=== PATIENT | male | born 1955 | race Caucasian/White ===

== ENCOUNTER → 2018-08-22 09:36 | Outpatient (CLI) | payer BC, SELFPAY ==
--- NOTE | 2018-08-22 11:32 | XR_ITS ---
EXAM: XR lumbar spine min 4V HISTORY: Low back pain ITS.REASON: DORSALGIA ORDERING PHYSICIAN: Kathleen King MD PATIENT AGE: 62 years COMPARISON: None FINDINGS: Normal alignment. No fracture or dislocation. No lytic or blastic change. Degenerative disc disease is present at L4-L5 and L5-S1. Mild facet arthritic changes also noted at these levels. Incidental aortic calcifications. IMPRESSION: Degenerative disc disease with facet arthritic change L4-L5 and L5-S1
--- NOTE | 2018-08-22 11:32 | XR_ITS ---
XR hip LT 2-3V w/pelvis HISTORY: ITS.REASON: ARTHRITIS OF HIP ORDERING PHYSICIAN: Kathleen King MD PATIENT AGE: 62 years COMPARISON: None FINDINGS: No fracture or dislocation is evident. No significant degenerative change. No lytic or blastic change. Unremarkable soft tissues IMPRESSION: Negative left hip
--- NOTE | 2018-08-22 11:32 | XR_ITS ---
XR hip RT 2-3V w/pelvis HISTORY: ITS.REASON: ARTHRITIS OF HIP ORDERING PHYSICIAN: Kathleen King MD PATIENT AGE: 62 years COMPARISON: None FINDINGS: No fracture or dislocation is evident. No significant degenerative change. No lytic or blastic change. Unremarkable soft tissues IMPRESSION: Negative right hip
[2018-08-22 12:20] VITALS: PULSE 87; PULSE 89
== END ==
PROVIDERS: PCP Emergency Medicine; Visit Provider Emergency Medicine
DX: Z01.818 Encounter for other preprocedural examination (principal); J45.40 Moderate persistent asthma, uncomplicated; M16.10 Unilateral primary osteoarthritis, unspecified hip; M54.9 Dorsalgia, unspecified
CPT/HCPCS: 72110; 73502; 94060; 94640

== ENCOUNTER → 2018-08-24 13:11 | Outpatient (CLI) | payer BC, SELFPAY ==
--- NOTE | 2018-08-24 13:26 | CT_ITS ---
CT chest w con HISTORY: Follow-up pulmonary nodule, abnormal chest x-ray ITS.REASON: ABNORMAL CXR ORDERING PHYSICIAN: Kathleen King MD PATIENT AGE: 62 years COMPARISON: 06/05/2016 TECHNIQUE: Axial images obtained following the administration of 75 mL of Isovue 370 . Sagittal, and coronal reformatted images are also generated and reviewed. All CT scans at the facility use one or more dose reduction, viz: automated exposure control, ma/kV adjustment per patient size (including targeted exams where dose is matched to indication, i.e. head), or iterative reconstruction technique. FINDINGS: Patient's most recent chest x-ray with another institution. Report from that exam mentions a right suprahilar opacity. No right upper lobe or right suprahilar mass is evident. No mediastinal or hilar mass. There are few scattered small mediastinal lymph nodes which are not significantly changed. No evidence of aortic aneurysm or dissection or central pulmonary embolus. Normal heart size. No evidence of pericardial effusion. There are mild atelectatic changes or fibrotic changes in the right below and lingula. A 4 mm noncalcified nodule present in the left upper lobe laterally axial image #36 unchanged. There is consolidation along the left major fissure superiorly which has developed in the interval. Upper abdominal images are unremarkable. IMPRESSION: 1. No right suprahilar mass or suspicious nodule evident. 2. Consolidation is present along the major fissure on the left consistent with an area of atelectasis or pneumonia. Follow-up chest CT suggested in 2-3 months to confirm resolution and to exclude a postobstructive process.
== END ==
PROVIDERS: PCP Emergency Medicine; Visit Provider Emergency Medicine
DX: R93.89 Abnormal findings on diagnostic imaging of other specified body structures (principal)
CPT/HCPCS: 71260; Q9967

== ENCOUNTER → 2018-11-30 16:47 | Outpatient (CLI) | payer BC, SELFPAY ==
[2018-11-30 18:54] LABS: Blood Urea Nitrogen 17 mg/dL (7-18); Creatinine,Serum 1.14 mg/dL (0.70-1.30); Estimated Glomerular Filt Rate 65 ml/min (>60); GFR (African American) 79 ML/MIN (>60)
== END ==
PROVIDERS: Visit Provider Emergency Medicine
DX: R93.89 Abnormal findings on diagnostic imaging of other specified body structures (principal)
CPT/HCPCS: 36415; 82565; 84520

== ENCOUNTER → 2018-12-06 14:53 | Outpatient (CLI) | payer BC, SELFPAY ==
--- NOTE | 2018-12-06 15:06 | CT_ITS ---
CT chest w con HISTORY: Follow-up left upper lobe consolidation/volume loss ITS.REASON: ABN CT OF CHEST ORDERING PHYSICIAN: Kathleen Mancilla MD PATIENT AGE: 63 years COMPARISON: 08/14/2018 TECHNIQUE: Axial images obtained following the administration of 75 mL of Optiray 350 . Sagittal, and coronal reformatted images are also generated and reviewed. All CT scans at the facility use one or more dose reduction, viz: automated exposure control, ma/kV adjustment per patient size (including targeted exams where dose is matched to indication, i.e. head), or iterative reconstruction technique. FINDINGS: No mediastinal or hilar mass or adenopathy. Previous outside chest x-ray report suggested a suprahilar nodule on the right is not demonstrated on these images. There is mild pleural thickening in the right mid to posterior hemithorax laterally not severely changed. There are mild atelectatic changes or fibrotic change in the lung bases. There is mild pleural thickening of the left major fissure which is somewhat improved. Upper abdominal images are unremarkable. No central obstructing lesions are evident. IMPRESSION: 1. There is been improvement in the consolidation/pleural thickening in the left major fissure region. There remains some fissural thickening in this area. 2. Otherwise no change with no acute finding
== END ==
PROVIDERS: PCP Emergency Medicine; Visit Provider Emergency Medicine
DX: R93.89 Abnormal findings on diagnostic imaging of other specified body structures (principal)
CPT/HCPCS: 71260; Q9967

== ENCOUNTER 2018-12-20 14:30 | Outpatient (RCR) | payer BC, SELFPAY | END 2018-12-20 14:35 | disposition home or self-care (01) | LOC: PT 14:30 | PROVIDERS: Visit Provider Orthopaedic Surgery | DX: Z96.651 Presence of right artificial knee joint (principal) | CPT/HCPCS: 97010; 97014; 97016; 97110; 97140; 97163; 97164; G0283 ==

== ENCOUNTER → 2019-03-15 16:12 | Outpatient (CLI) | payer BC, SELFPAY ==
[2019-03-17 11:45] LABS: PSA, Free 0.71 ng/mL
== END ==
PROVIDERS: Visit Provider Urology
DX: R97.20 Elevated prostate specific antigen [PSA] (principal)
CPT/HCPCS: 36415; 84153; 84154

== ENCOUNTER → 2019-08-21 12:11 | Outpatient (CLI) | payer BC, SELFPAY ==
[2019-08-21 15:45] LABS: Prostate Specific Ag Screen 4.8 ng/mL (0.0-4.0)
== END ==
PROVIDERS: Visit Provider Urology
DX: R97.20 Elevated prostate specific antigen [PSA] (principal)
CPT/HCPCS: 36415; G0103

== ENCOUNTER → 2020-04-27 10:59 | Outpatient (CLI) | payer BC, SELFPAY ==
--- NOTE | 2020-04-27 | MR_ITS ---
PROCEDURE: MR LUMBAR SPINE WO CON CLINICAL INDICATION: LBP WITH HX OF DDD Chronic low back pain now with right leg pain and numbness COMPARISON: DX [id number] XR lumbar spine min 4V from 08/22/2018 TECHNIQUE: Standard multiplanar multiecho sequences are performed without contrast. 3-D MIP and myelographic images are also rendered and reviewed FINDINGS: There is normal alignment. The spinal cord ends at the the T12-L1 level. T12-L1: Mild degenerative disc disease with minimal bulging disc. L1-L2: Mild disc desiccation. L2-L3: Unremarkable. L3-L4: Mild facet and ligamentum hypertrophy with mild bilateral lateral recess and mild bilateral foraminal narrowing. L4-5: Degenerative disc disease with facet and ligamentum hypertrophy with moderate bilateral foraminal narrowing. L5-S1: Degenerative disc disease with type 2 endplate changes. There is mild bulging disc with a small broad-based left paracentral disc protrusion/disc osteophyte abutting the anterior aspect of the left S1 nerve root with left lateral recess narrowing. There is facet and ligamentum hypertrophy this with mild bilateral foraminal narrowing. No canal stenosis or extruded herniated disc. IMPRESSION: There is multilevel lumbar spondylosis with facet and ligamentum hypertrophy and degenerative disc disease. Please see above for detailed description at each level. Small broad-based left paracentral disc protrusion versus disc osteophyte complex at L5-S1 abutting the left S1 nerve root anteriorly No extruded herniated disc or canal stenosis Dictated by: Zion Larson MD 04/29/2020 06:45 Zion Larson MD in [place] 04/29/2020 06:45
== END ==
PROVIDERS: PCP Family Medicine; Visit Provider Family Medicine
DX: M54.41 Lumbago with sciatica, right side (principal); M51.36 Other intervertebral disc degeneration, lumbar region; M47.816 Spondylosis without myelopathy or radiculopathy, lumbar region
CPT/HCPCS: 72148; 76376

== ENCOUNTER 2020-05-01 10:00 | Outpatient (RCR) | payer BC, SELFPAY | END 2020-05-01 10:05 | disposition home or self-care (01) | LOC: PT 10:00 | PROVIDERS: PCP Emergency Medicine; Visit Provider Orthopaedic Surgery | DX: M25.561 Pain in right knee; Z96.651 Presence of right artificial knee joint | CPT/HCPCS: 97010; 97014; 97016; 97035; 97110; 97140; 97163; 97164; G0283 ==

== ENCOUNTER → 2020-10-02 12:43 | Outpatient (CLI) | payer BC, SELFPAY ==
--- NOTE | 2020-10-02 12:43 | CT_ITS ---
PROCEDURE: CT CHEST WO CON CLINICAL INDICATION: Pleural Abnormality Soa x several years Prior on pacs COMPARISON: CT CHESTW CT chest w con from 12/06/2018 TECHNIQUE: Axial images obtained with sagittal and coronal reformats. All CT scans at the facility use one or more dose reduction, viz: automated exposure control, ma/kV adjustment per patient size (including targeted exams where dose is matched to indication, i.e. head), or iterative reconstruction technique. FINDINGS: HEART AND MEDIASTINAL STRUCTURES: Coronary artery calcifications are noted. No mediastinal or hilar mass. No evidence of aortic aneurysm. LUNGS AND PLEURAL SPACES: COPD changes. No lobar consolidation or collapse. Atelectatic or fibrotic changes are present in the lingula. Is some mild scarring within the left lower lobe medially. Previously left-sided fissural thickening has improved. BONY STRUCTURES: No acute bony abnormalities apparent. UPPER ABDOMEN: Diverticulosis of the hepatic flexure ADDITIONAL FINDINGS: No other significant abnormalities. IMPRESSION: No acute finding. COPD with some scarring in the lingula and left lower lobe. Previous noted left-sided fissural thickening has improved Dictated by: Zion Larson MD 10/03/2020 13:25 Zion Larson MD in [place] 10/03/2020 13:25
--- NOTE | 2020-10-02 13:23 | CA_ITS ---
APPROVED REPORT EXAM: Comprehensive 2D, Doppler, and color-flow Echocardiogram Chemical Analyst: Zahraa Mccray CRT Ht: 5 ft 7 in Wt: 245lbs BSA: 2.20 BP: 122/85 mmHg Indications: Shortness of Breath, Obesity, ex smoker 2D Dimensions LVOT 2.08 cm (M/F) 1.5-2.5 LA Volume 48.20 mL LA Volume Index 21.90 mL/m2 (M/F) 16-34 M-Mode Dimensions RVDd 2.78 cm (0.9-2.6) LA Diam 3.59 cm (1.9-4.0) LVDd 4.87 cm (3.5-5.7) Ao Diam 4.52 cm (2.0-3.7) LVDs 3.14 cm (3.5-5.7) IVSd 1.65 cm (0.6-1.1) PWd 0.93 cm (0.6-1.1) EF (Teich) 64.80% FS 35.50% EDV (Teich) 111.20 mL TAPSE 3.44 (<1.7) ESV (Teich) 39.10 mL LV Diastology E Decel Time 243.00 (160-240 msec) E/A Ratio 0.78 MED E' 4.60 (< 7 cm/sec) MED A' 10.40 cm/s E'/MED E' Ratio 13.70 (>14) LAT E' 7.80 (<10 cm/sec) LAT A' 12.40 cm/s E/LAT E' Ratio 8.08 (>14) Aortic Valve AO Peak GR. 6.80 mmHg Mitral Valve MV A Velocity 81.00 (40-130 cm/s) E/A Ratio 0.78 MV Decel. Time 243.00 (160-240 ms) Pulmonary Valve PV Peak Velocity 77.00 (50-150 cm/s) Tricuspid Valve TR P. Velocity 128.00 cm/s RAP Estimate 10.00 mmHg RVSP 16.50 mmHg Left Ventricle Left atrium is mildly enlarged, left ventricle is normal size, mild concentric left ventricular hypertrophy, visually estimated ejection fraction 55% with no regional wall motion abnormality, grade 1 diastolic dysfunction seen without tissue Doppler evidence of raise left atrial pressure. Right Ventricle Right atrium and right ventricle is relatively normal size and function. Aortic Valve Aortic valve is minimally thickened and fibrosed, there is no aortic stenosis or aortic insufficiency. Mitral Valve Mitral valve is benign leaflets are minimally thickened, there is no mitral stenosis, there is mild mitral regurgitation. Tricuspid Valve Tricuspid grossly normal, there is mild tricuspid regurgitation, tricuspid regurgitation jet velocity is inadequate for calculation of the right ventricular systolic pressure. Pulmonic Valve Pulmonic valve is poorly visualized. Great Vessels Aortic root is normal size. Pericardium No significant pericardial effusion noted. Conclusion 1. Mildly enlarged left atrium, normal left ventricular size, mild concentric left ventricular hypertrophy, visually estimated ejection fraction 55% with no regional wall motion abnormality, grade 1 diastolic dysfunction seen without tissue Doppler evidence of raise left atrial pressure. 2. Mild mitral and tricuspid regurgitation 3. No significant pericardial effusion noted. Electronically signed by : Ralph Brooks, 10/03/2020 16:00:18
== END ==
PROVIDERS: PCP Family Medicine; Visit Provider Internal Medicine Pulmonary Disease
DX: R06.00 Dyspnea, unspecified (principal); R93.89 Abnormal findings on diagnostic imaging of other specified body structures; J92.9 Pleural plaque without asbestos
CPT/HCPCS: 71250; 93306

== ENCOUNTER → 2021-05-26 14:06 | Outpatient (CLI) | payer BC, SELFPAY ==
[2021-05-26 16:16] LABS: Prostate Specific Ag Screen 6.6 ng/ml (0.0-4.0)
== END ==
PROVIDERS: Visit Provider Urology
DX: R97.20 Elevated prostate specific antigen [PSA] (principal)
CPT/HCPCS: 36415; G0103

== ENCOUNTER → 2021-07-25 14:01 | Outpatient (CLI) | payer BC, SELFPAY ==
[2021-07-27 09:09] LABS: PSA, Free 1.76 ng/mL; Prostate Specific Ag 5.4 ng/mL (0.0-4.0)
== END ==
PROVIDERS: PCP Internal Medicine; Visit Provider Urology
DX: R97.20 Elevated prostate specific antigen [PSA] (principal)
CPT/HCPCS: 36415; 84153; 84154

== ENCOUNTER → 2021-12-23 15:20 | Outpatient (CLI) | payer MEDICARE, SELFPAY ==
--- NOTE | 2021-12-23 15:30 | XR_ITS ---
FINAL REPORT CLINICAL HISTORY: LT FOOT PAIN. swelling. no injury or trauma. FINDINGS: LEFT FOOT: Three views of the left foot were obtained. There is no acute fracture or dislocation. There are mild degenerative changes. There is no soft tissue abnormality. IMPRESSION: Mild degenerative change. Reviewed, Interpreted and Dictated by Messi Williamson III, MD Transcribed by Juancarlos Elmore Authenticated and [facility]
== END ==
PROVIDERS: PCP Family Medicine; Visit Provider Family Medicine
DX: M79.672 Pain in left foot (principal)
CPT/HCPCS: 73630

== ENCOUNTER → 2022-02-03 14:51 | Outpatient (CLI) | payer MEDICARE, SELFPAY ==
[2022-02-03 16:33] LABS: Prostate Specific Ag Screen 8.2 ng/ml (0.0-4.0)
== END ==
PROVIDERS: PCP Family Medicine; Visit Provider Urology
DX: Z12.5 Encounter for screening for malignant neoplasm of prostate (principal)
CPT/HCPCS: 36415; G0103

== ENCOUNTER → 2022-02-24 13:47 | Outpatient (CLI) | payer MEDICARE, SELFPAY ==
[2022-02-26 09:47] LABS: PSA, Free 1.46 ng/mL; Prostate Specific Ag 5.3 ng/mL (0.0-4.0)
== END ==
PROVIDERS: PCP Urology; Visit Provider Family Medicine
DX: R97.20 Elevated prostate specific antigen [PSA] (principal)
CPT/HCPCS: 36415; 84153; 84154

== ENCOUNTER → 2022-08-04 15:23 | Outpatient (CLI) | payer MEDICARE, SELFPAY ==
--- NOTE | 2022-08-04 15:40 | XR_ITS ---
FINAL REPORT CLINICAL HISTORY: PAIN RT HAND FINDINGS: Right hand Three views were obtained. There is no acute fracture or dislocation. There are mild degenerative changes, most pronounced involving the DIP and PIP joints. No soft tissue abnormality is identified. IMPRESSION: No acute process. Reviewed, Interpreted and Dictated by Lisbeth Eid MD Transcribed by Jammie Chase Authenticated and [facility]
== END ==
PROVIDERS: PCP Family Medicine; Visit Provider Family Medicine
DX: M79.641 Pain in right hand (principal)
CPT/HCPCS: 73130

== ENCOUNTER 2023-07-29 11:44 | Day surgery (SDC) | payer MEDICARE, SELFPAY ==
[2023-07-29] VITALS (8 sets, daily range): BP systolic 127–153; BP diastolic 72–96; PULSE 90–96; RESP 16–18; TEMP 36.4–36.6; O2SAT 90–100; BMI 38.3
[2023-07-29] MEDS: LACTATED RINGERS 1000ML 1,000 ML 25 ML IV (12:06)
--- NOTE | 2023-07-29 12:27 | EXP.ANES.CKL ---
[facility] Disclaimer: The information contained in this section may have been updated after the patient was seen, as this information can be updated by other users. Medical History Asthma COPD (chronic obstructive pulmonary disease) Elevated PSA History of back pain Surgical History History of colonoscopy History of knee replacement Family History Other No significant family history Social History Smoking Status: Former smoker tobacco type: smokeless tobacco alcohol intake: current substance use type: denies use current occupational status: employed Travel in the last 8 weeks: None housing: house [facility] Anesthesia Checklist Patient Identification Patient Identification: Arm Band, Family () and Verbal (Name & ) Structural Data Admitted From: Home Planned Operative Procedure/s: Colonoscopy Consent for Planned Operative Procedure(s) Verified: Yes Verified Documents: Surgical Consent and History and Physical NPO Status Verified Time NPO: 01:00 Chart Verification Results Verified: CBC, BMP and ECG (ECHO EF 55% Mild MR & TR) Additional verifications Patient : No Anesthesia Reactions: Yes (Double vision x 6 months after last colonoscopy? Resolved) Cardiovascular Assessment Heart Sounds: S1 & S2 Pulse Rhythm: Irregular Peripheral Edema: No Airway Assessment Mallampati Score:: Class II C-Spine Mobility Assessed: Yes (FROM) TMJ Mobility Assessed: Yes Dentition: Good Dentition (Nothing loose per pt.) Neurological Assessment Level of Consciousness: Awake, Alert, Appropriate and Follows Commands Hx Seizures: No Numbness or tingling in extremities: No Anesthesia Plan Anesthesia Risk discussed: Yes Anesthesia Plan: Verified ASA Class: III Anesthesia Type: MAC
--- NOTE | 2023-07-29 13:06 | HMH.SCOPE ---
Procedure: Date: 07/29/23 Patient Date of :: 1955 Procedure Performed:: Colonoscopy with snare Indications:: +Cologuard Performing Provider:: Mariah Monroe MD Referring Provider:: Parrish Thurman MD Sedation:: Propofol Procedure:: After placing the patient in the left lateral decubitus position, the colonoscopy was gently inserted into the rectum and under direct visualization advanced to the cecum which was identified by transillumination in the right lower quadrant, identification of the ileocecal valve, appendiceal orifice, and cecal strap. Color, texture, mucosa, and anatomy of the colon were carefully examined with the scope. Findings:: Anal canal: normal Rectum: normal Sigmoid colon: normal without polyps or inflammatory changes Descending colon: normal without polyps or inflammatory changes Splenic flexure: normal Transverse colon: 0.75 cm adenomatous polyps, removed with hot snare Hepatic flexure: normal Ascending colon: Large 1.5 adenomatous polyp, removed with hot snare Cecum: normal Terminal ileum: not visualized Impression: Multiple adenomatous polyps Specimens:: Colon polyps Recommendations:: Follow up examination in about THREE years or so, sooner if clinically indicated in view of current findings Complications:: None Estimated blood obtained (mL): 0 Colonoscopy Component Colonoscopy Component Was a colonoscopy performed during today's procedure?: Yes Recommended follow up colonoscopy of at least 10 years?: No If no, follow up colonoscopy recommended in ___ years?: THREE Reason for not recommending >/= 10 yr follow-up interval?: Polyps, multiple
--- NOTE | 2023-07-29 13:17 | EXP.ANES.I ---
[facility] Anesthesia Record Part I Anesthesia Record I Intake, IV Amount: 400 Hydration: Adequate Estimated blood loss (mL): 1 Urine output (mL): 0 Blood Products used (#): none Blood Pressure: 132/80 SaO2: 90 Pulse Rate: 90 Airway Patency: Patent Respiratory Rate: 16 Temperature: 97.8 F Patient is:: Drowsy and Stable Stable to PACU at:: 13:14
== END 2023-07-29 14:05 | disposition home or self-care (01) ==
PROVIDERS: PCP Family Medicine; Visit Provider Internal Medicine Gastroenterology
PROC: 0DJD8ZZ Inspection of Lower Intestinal Tract, Via Natural or Artificial Opening Endoscopic (ICD-10-PCS; CPT 45378; principal; 2023-07-29 13:00)
DX: R19.5 Other fecal abnormalities (principal); D12.2 Benign neoplasm of ascending colon; D12.3 Benign neoplasm of transverse colon
CPT/HCPCS: 45385; 88305

== ENCOUNTER 2023-11-08 10:02 | Outpatient (CLI) | payer MEDICARE, SELFPAY | END 2023-11-08 23:59 | disposition home or self-care (01) | LOC: LAB 10:04 | PROVIDERS: PCP Family Medicine; Visit Provider Urology | DX: R97.20 Elevated prostate specific antigen [PSA] (principal) | CPT/HCPCS: 36415; 84153; 84154 ==

== ENCOUNTER 2023-11-09 14:48 | Outpatient (CLI) | payer MEDICARE, SELFPAY ==
[2023-11-11 09:16] LABS: Prostate Specific Ag 5.2 ng/mL (0.0-4.0)
== END 2023-11-09 23:59 | disposition home or self-care (01) ==
LOC: LAB 14:48
PROVIDERS: PCP Family Medicine; Visit Provider Urology
DX: R97.20 Elevated prostate specific antigen [PSA] (principal)
CPT/HCPCS: 84153; 84154

== ENCOUNTER 2024-04-20 14:11 | Outpatient (CLI) | payer MEDICARE, SELFPAY ==
[2024-04-22 10:23] LABS: PSA, Free 1.17 ng/mL; Prostate Specific Ag 6.2 ng/mL (0.0-4.0)
== END 2024-04-20 23:59 | disposition home or self-care (01) ==
LOC: LAB 14:15
PROVIDERS: PCP Family Medicine; Visit Provider Urology
DX: N40.1 Benign prostatic hyperplasia with lower urinary tract symptoms (principal)
CPT/HCPCS: 36415; 84153; 84154

== ENCOUNTER 2024-06-13 12:31 | Outpatient (CLI) | payer MEDICARE, SELFPAY ==
--- NOTE | 2024-06-13 12:42 | XR_ITS ---
FINAL REPORT CLINICAL HISTORY: MUSCLE SPASM FINDINGS: THORACIC SPINE Three views were obtained. There is no acute fracture. There are mild degenerative changes with osteophytes. There is no malalignment. IMPRESSION: Mild degenerative changes. Reviewed, Interpreted and Dictated by Messi Williamson III, MD Transcribed by Jammie Chase Authenticated and [facility]
--- NOTE | 2024-06-13 12:42 | XR_ITS ---
FINAL REPORT CLINICAL HISTORY: .MUSCLE SPASMS FINDINGS: LUMBAR SPINE Five views were obtained. There is no acute fracture. There are mild and moderate degenerative changes. Vacuum phenomenon is seen at L4-5 and L5-S1. There is mild anterolisthesis of L3 on 4. Vascular calcification is identified. IMPRESSION: Degenerative changes as detailed above. Reviewed, Interpreted and Dictated by Messi Williamson III, MD Transcribed by Jammie Chase Authenticated and [facility]
== END 2024-06-13 23:59 | disposition home or self-care (01) ==
LOC: RAD 12:37
PROVIDERS: PCP Family Medicine; Visit Provider Nurse Practitioner Family
DX: M62.830 Muscle spasm of back (principal)
CPT/HCPCS: 72072; 72110

== ENCOUNTER 2024-07-08 04:25 | Emergency (ER) | payer MEDICARE, SELFPAY ==
[2024-07-08 04:32] VITALS: BP 144/76; PULSE 96; RESP 20; TEMP 36.8; O2SAT 94; BMI 38.0
[2024-07-08] MEDS: METHOCARBAMOL 500MG TABLET 500 MG PO (04:52)
[2024-07-08] MEDS: LIDOCAINE 5% TRANSDERMAL PATCH 1 EACH TP (04:52)
--- NOTE | 2024-07-08 04:52 | ED_ITS ---
Discharge Plan Disposition Patient Disposition: Home, Self-Care Condition: Good Prescriptions Prescriptions: New lidocaine 5 % adhesive patch,medicated See Rx Instructions .ROUTE .COMPLEX Qty: 15 0RF Rx Instructions: Apply 1 patch to most painful area and leave on for 12 hours. Remove and leave off for 12 hours before using a new patch. methocarbamol 500 mg tablet 500 mg PO Q6H PRN (Reason: muscle spasm) Qty: 30 0RF No Action Trelegy Ellipta 100-62.5-25 mcg blister with device 1 inh INHALATION DAILY Qty: 60 4RF albuterol sulfate 90 mcg/actuation HFA aerosol inhaler 1 inh INHALATION QID PRN (Reason: shortness of breath or wheezing) Qty: 8.5 2RF omeprazole 40 MG capsule,delayed release(DR/EC) 40 mg PO DAILY triamterene-hydrochlorothiazid 37.5-25 mg tablet 1 tab PO DAILY Patient Comments: TAKE 1 2 (ONE HALF) TABLET BY MOUTH ONCE DAILY FOR 90 DAYS Referrals Follow up/Referrals: Rolan Gonzales DO [Staff Physician] - See instructions (fall 2mo ago, still having thoracic/paraspinal pain no neuro deficits) Provider,Referral, [Primary Care Provider] - See instructions Activity Restrictions/Add. Instructions Additional Instructions/Restrictions: You were evaluated in the ER and are appropriate for discharge at this time. Stop the metaxalone. Start taking the prescribed methocarbamol as directed. Also use the prescribed lidocaine patches. Continue taking Tylenol, ibuprofen. Do not exceed the recommended doses on the bottle. Drink water and eat a small snack each time you take these medications to avoid side effects. Follow-up with your primary care doctor. Call him and ask him if he is able to get the MRI expedited. You have also been referred to Dr. Gonzales for reevaluation. Return to the ER with new, worsening, or otherwise concerning symptoms. Clinical Impressions Clinical Impression: Pain of paraspinal muscle, Back pain, thoracic Instructions Patient Instructions: DI for Low Back Pain Print Language Print Language: Sinhala Discharge ED Provider: Elin Vásquez Adult HPI General Chief complaint: Back Pain/Injury Stated complaint: back pain Time Seen by Provider: 07/08/24 04:31 Mode of Arrival: Ambulatory Source of Information: Patient Limitations: No Limitations Description of Symptoms (Recalled from ER Triage Doc. by RN): Pt states he fell 2 months ago and since has had mid back pain. Pain a 4 on 1-10 scale. Pt states he has numbness in right rib cage also. History of Present Illness HPI narrative: 68-year-old male presents to the ER with complaints of mid back pain. Patient reports 2 months ago he had a fall. He states since that time he has had progressive back pain. The area he demonstrates is around T8. He points to the right side stating the majority of his pain starts in his this right paraspinal area. He states the pain does radiate over to the left side as well. He states he has a known history of bone spurs and is not sure if this is potentially causing nerve impingement. He states the pain in the right side wraps around the right side of the rib. He does not describe numbness to me but describes pain. He states it is tender to the touch. He has no difficulty breathing, no shortness of breath, no chest pain, no nausea, vomiting, or diarrhea. He denies abdominal pain, he has no dysuria or hematuria, he has no saddle anesthesia, no bowel or bladder incontinence or retention. He states he has been taking Tylenol, ibuprofen, and metaxalone that was prescribed by his primary care doctor. He states he has been going to physical therapy but seems to be getting worse with this. He has been told by his PCP he should have an MRI but states he has not scheduled for this for up to 2 weeks. He has not had fevers, chills, or other associated symptoms. He came to the ER hoping to get pain pills. Related Data Home Medications ?Medication ?Instructions ?Recorded ?Confirmed omeprazole 40 mg capsule,delayed 40 mg PO DAILY GERD 09/08/18 07/29/23 release triamterene 37.5 1 tab PO DAILY 07/29/23 07/29/23 mg-hydrochlorothiazide 25 mg tablet Previous Rx's ?Medication ?Instructions ?Recorded albuterol sulfate 90 mcg/actuation 1 inh inhalation QID PRN shortness 08/14/20 aerosol inhaler of breath or wheezing #8.5 grams fluticasone fur. 100 mcg-umeclid 1 inh inhalation DAILY #60 ea 08/14/20 62.5 mcg-vilant 25 mcg inhalat.powder (Trelegy Ellipta) lidocaine 5 % topical patch See Rx Instructions topical 07/08/24 .COMPLEX #15 ea methocarbamol 500 mg tablet 500 mg PO Q6H PRN muscle spasm #30 07/08/24 tabs Allergies Allergy/AdvReac Type Severity Reaction Status Date / Time No Known Allergies Allergy Verified 07/29/23 11:58 [facility] Disclaimer: The information contained in this section may have been updated after the patient was seen, as this information can be updated by other users. Medical History (Updated 07/08/24 @ 04:50 by Elin Vásquez MD) Elevated PSA History of back pain Asthma COPD (chronic obstructive pulmonary disease) Surgical History History of colonoscopy History of knee replacement Family History Other No significant family history Social History (Updated 07/29/23 @ 12:29 by Gunjan Burleson CRNA) Smoking Status: Never smoker alcohol intake: current alcohol intake frequency: a few times a month substance use type: denies use current occupational status: employed Travel in the last 8 weeks: None housing: house Have you lived/traveled outside [place] in past 30 days?: No Contact w/someone who lives/traveled outside [place] past 30 days?: No Exposure to someone with infectious disease in past 14 days?: No Do you have a fever (greater than 100.4 F or 38 C)?: No Have you tested positive for COVID-19: No Exposed to someone with COVID-19 in past 14 days?: No Do you have a sore throat?: No Do you have a cough?: No Do you have any weakness?: No Do you have any diarrhea?: No Are you experiencing any unusual bleeding?: No Do you have any muscle aches/pain?: No Do you have any abdominal pain?: No Are you experiencing loss of taste or smell?: No Other Medical History Have you received the Pneumonia Vaccine: Yes ROS Obtained: Yes Systems reviewed as appropriate & no additional complaints except as documented per HPI Physical Exam General General appearance: alert and in no apparent distress Head Head exam: atraumatic and normocephalic Eye Eye exam: Present PERRL and EOMI ENT ENT exam: Present mucous membranes moist Neck Neck exam: Present normal inspection and full ROM Chest Chest inspection: Present symmetric chest wall rise; Absent tenderness Respiratory Respiratory exam: Absent respiratory distress or stridor Cardiovascular Cardiovascular exam: Present regular rate and normal rhythm Abdominal Exam Abdominal exam: Present soft; Absent distention, tenderness, guarding or rebound Extremities Exam Extremities exam: Present full ROM; Absent tenderness or edema Back Exam Back exam: Present paraspinal tenderness (Paraspinal tenderness worse on the right than the left but also present on the left at approximately the T6-T10 level. Pain in the right paraspinal muscles also radiates into the right inferior latissimus.); Absent vertebral tenderness (No midline vertebral tenderness, deformity, or step-off), sciatic notch tenderness (R) or sciatic notch tenderness (L) Neurological Exam Neurological exam: Present alert, oriented X3 and other (No saddle anesthesia); Absent motor sensory deficit Psychiatric Psychiatric exam: Present normal affect and normal mood Skin Skin exam: Present warm and dry Medical Decision Making Medical Records Medical records reviewed: Yes I reviewed the patient's medical records. Screening: Per USPSTF and CDC recommendations, given the prevalence of disease in our region, it is our hospital?s policy to screen for HIV and viral Hepatitis for all patients aged 18 and over and those with ongoing risk factors. MR Comment: Patient had thoracic and lumbar spine x-ray imaging at the beginning of June. I reviewed these x-rays. Patient has degenerative changes but they did not appreciate acute osseous injury López Inquiry Pt receiving controlled substance: No Vital Signs: 07/08/24 04:32 Temperature 98.2 F Temperature Source Oral Pulse Rate [Right Brachial] 96 H Respiratory Rate 20 Blood Pressure [Right Arm] 144/76 H Blood Pressure Mean [Right Arm] 98 Blood Pressure Source [Right Arm] Automatic Cuff Blood Pressure Position [Right Arm] Sitting 02 Sat by Pulse Oximetry 94 L Oxygen Delivery Method Room Air Orders (Tests/Meds): ED MEDICATIONS Discontinued Medications Generic Name Dose Route Start Last Admin Trade Name Freq PRN Reason Stop Dose Admin Lidocaine 1 each 07/08/24 04:49 07/08/24 04:52 Lidocaine 5% Transdermal Patch TP 07/08/24 04:50 1 each ONCE ONE Administration Methocarbamol 500 mg 07/08/24 04:49 07/08/24 04:52 Methocarbamol 500mg Tablet PO 07/08/24 04:50 500 mg ONCE ONE Administration ORDERS Category Date Time Status HIV (1&2) Antibody Rapid Stat Lab 07/08/24 04:35 Ordered Hep C Ab with Reflex to RNA Stat Lab 07/08/24 04:35 Ordered Medical Decision Narrative: In summary, this 68-year-old male presents to the emergency department today with thoracic back pain. On initial evaluation patient is hemodynamically stable, afebrile, GCS 15, patient has no neurologic deficits, no red flag signs of back pain, his exam only shows paraspinal tenderness, no midline pain, deformity, or step-off. Differential diagnosis includes but is not limited to muscle spasm, radiculopathy, nerve impingement, degenerative disease, I had considered the possibility of compression fracture or other acute osseous injury however patient's initial injury occurred over 2 months ago and he gradually started having pain after that. This course of symptoms does not fit with an acute osseous injury and patient had negative T and L-spine x-rays at the beginning of June which is further support against osseous injury. Patient likely needs an MRI but he does not need one emergently since he has no red flag symptoms such as bowel or bladder incontinence or retention, paralysis, or sad dle anesthesia. He has no high risk behaviors such as IV drug use that would increase his risk of epidural abscess and is not having any fevers, chills, or neurodeficits. I do not believe he requires emergent MRI at this time. Outpatient MRI that has been recommended and referred for by his PCP is appropriate. I did administer methocarbamol and lidocaine patch in the ER. Patient is already taking other medications at home. He had slight improvement of symptoms and is now able to sit comfortably on the side of the bed. He understands why additional imaging is not indicated at this time. I did prescribe methocarbamol and instructed him to stop the metaxalone. I also prescribed lidocaine patches for outpatient use. Patient was given instructions on symptomatic management, follow up instructions, and return precautions for the emergency department. Patient indicated understanding and was discharged in stable condition. Critical Care Critical Care Time Critical Care Time: No
[2024-07-08 05:48] VITALS: BP 160/72; PULSE 93; RESP 16; TEMP 36.7; O2SAT 96
== END 2024-07-08 05:51 | disposition home or self-care (01) ==
PROVIDERS: Emergency Provider Emergency Medicine
DX: M54.6 Pain in thoracic spine (principal); M79.18 Myalgia, other site; M54.9 Dorsalgia, unspecified
CPT/HCPCS: 99283

== ENCOUNTER 2024-07-10 16:53 | Outpatient (CLI) | payer MEDICARE, SELFPAY ==
--- NOTE | 2024-07-10 16:56 | MR_ITS ---
PROCEDURE INFORMATION: Exam: MR Thoracic Spine Without Contrast Exam date and time: 07/10/2024 5:16 PM Age: 68 years old Clinical indication: Pain in thoracic spine; Patient HX: Fall x 2 months ago; Additional info: Bilateral thoracic back pain, ddd TECHNIQUE: Imaging protocol: Magnetic resonance imaging of the thoracic spine without contrast. COMPARISON: CR XR THORACIC SPINE 3V 06/13/2024 12:57 PM FINDINGS: Bones/joints: There is a new acute to subacute appearing severe T7 compression deformity with bony retropulsion into the spinal canal and effacement of the anterior thecal sac. The remainder of the vertebral body heights and alignment are maintained. There is [id number] multilevel degenerative disc disease. Spinal cord: Normal signal. No cord compression. T1-T2: There is a small left-sided disc protrusion which partially effaces the anterior thecal sac. There is no significant spinal canal or neural foraminal stenosis. T2-T3: There is mild diffuse disc bulging without significant spinal canal or neural foraminal stenosis. T3-T4: No significant disc bulge or herniation. No severe spinal canal stenosis. No significant neural foraminal narrowing. T4-T5: No significant disc bulge or herniation. No severe spinal canal stenosis. No significant neural foraminal narrowing. T5-T6: No significant disc bulge or herniation. No severe spinal canal stenosis. No significant neural foraminal narrowing. T6-T7: There is a small central disc protrusion which partially effaces the anterior thecal sac. There is no significant spinal canal or neural foraminal stenosis. T7-T8: There is [id number] spinal canal stenosis secondary to bony retropulsion from T7 and prominent epidural fat. There is oagl-ge-uxohesuo bilateral neural foraminal stenosis secondary to foraminal disc osteophyte bulging. T8-T9: There is a small central disc protrusion which partially effaces the anterior thecal sac. There is no significant spinal canal or neural foraminal stenosis. T9-T10: There is a small right paracentral disc osteophyte complex which partially effaces the anterior thecal sac. There is no significant spinal canal or neural foraminal stenosis. T10-T11: No significant disc bulge or herniation. No severe spinal canal stenosis. No significant neural foraminal narrowing. T11-T12: No significant disc bulge or herniation. No severe spinal canal stenosis. No significant neural foraminal narrowing. T12-L1: There is a small broad-based central disc protrusion which partially effaces the anterior thecal sac. There is no significant spinal canal or neural foraminal stenosis. Soft tissues: Unremarkable. IMPRESSION: 1. Severe acute to subacute T7 compression deformity which is new when compared with the 06/13/2024 exam. 2. Degenerative changes as described. Please see above for specific findings at each level.
== END 2024-07-10 23:59 | disposition home or self-care (01) ==
LOC: RAD 16:54
PROVIDERS: PCP Family Medicine; Visit Provider Family Medicine
DX: M51.34 Other intervertebral disc degeneration, thoracic region (principal)
CPT/HCPCS: 72146

== ENCOUNTER 2024-07-11 13:00 | Outpatient (RCR) | payer MEDICARE, SELFPAY | END 2024-07-11 23:59 | disposition home or self-care (01) | LOC: PT 13:00 | PROVIDERS: PCP Family Medicine; Visit Provider Nurse Practitioner Family | DX: M54.9 Dorsalgia, unspecified (principal) | CPT/HCPCS: 97014; 97035; 97110; 97140; 97163; G0283 ==

== ENCOUNTER 2024-07-19 15:09 | Outpatient (POV) | payer MEDICARE, SELFPAY ==
--- NOTE | 2024-07-19 15:13 | A.OFFVIS_ITS ---
HPI Data of Consult Patient: new to practice Consult date: 07/19/24 Requesting Physician: Victorina Gonzales APRN Primary Care Provider: Parrish Thurman MD Consult Narrative Reason for consult: Mid back pain, acute compression fracture T7 History of present illness: Mr. Brown is a 68 year old male who presents today as a new patient. He is a referral from Dr. Parrish Thurman's office. Today he rates his pain a 10 out of 10. Patient states that initially about 9 weeks ago he was bending over when he heard a sudden popping sound with severe pain in his upper mid back. He states that he ended up also having a fall about 2 weeks from that where he fell over a horse bucket. He states the pain has been constant and describes it as a stabbing sensation that does take away his breath. He states any type of increased activity such as walking or sitting on a hard chair causes significant disability and pain. He states he cannot lift due to the worsening pain. He states the pain was across his low back and that he was having radiating symptoms into his ribs bilaterally however now the right side is more numb but the pain is still severe along the left side and radiates across. Patient states that initially his insurance denied the advanced imaging and stated he needed to go to physical therapy. He states he has been using oral medication including pain medication and muscle relaxers and multiple topicals included patches and roll-on medication that just seem to aggravate his overall symptoms. Patient did try to go to his chiropractor who he is seen for a long period of time prior to this injury for chronic back pain however the chiropractor refused to work on him. Patient states that he ended at doing the physical therapy however it did not help his pain but made his pain worse and he was released from this office. He states he did just get his MRI done at the end of June. Patient states he feels like the pain is still acute and that he can feel his back moving around and still has popping sensations from time to time. He is interested in any help we may be able to provide as it is interfering with his ability perform activities of daily living such as cooking and cleaning. He has been prescribed tramadol and methocarbamol from his PCP. He denies any side effects from this medication. His López has been reviewed and is appropriate. CC: Victorina Gonzales APRN [facility] Disclaimer: The information contained in this section may have been updated after the patient was seen, as this information can be updated by other users. Medical History (Updated 07/19/24 @ 15:14 by Victorina Gonzales APRN) Elevated PSA History of back pain Asthma COPD (chronic obstructive pulmonary disease) Surgical History History of colonoscopy History of knee replacement Family History Other No significant family history Social History (Updated 07/29/23 @ 12:29 by Gunjan Burleson CRNA) Smoking Status: Never smoker alcohol intake: current alcohol intake frequency: a few times a month substance use type: denies use current occupational status: retired Travel in the last 8 weeks: None housing: house Review of Systems Review of Systems Review of systems (narrative): Review of Systems: General: No recent weight changes, no fever, no sleep disturbances Respiratory: No cough, no shortness of air, no recurring pulmonary infections Cardiovascular/peripheral vascular: No chest pain, no palpitations, no edema, no shortness of breath Gastrointestinal: No new onset incontinence, normal bowel movements reported Genitourinary: No new onset incontinence Musculoskeletal: Upper mid back pain, rib pain Psychiatric: [Normal mood/affect] Neurological: [Denies weakness in extremities], [denies balance issues] Meds Home Medications and Allergies Home Medications ?Medication ?Instructions ?Recorded ?Confirmed ?Type omeprazole 40 mg capsule,delayed 40 mg PO DAILY GERD 09/08/18 07/29/23 History release albuterol sulfate 90 mcg/actuation 1 inh inhalation QID PRN shortness 08/14/20 07/29/23 Rx aerosol inhaler of breath or wheezing #8.5 grams fluticasone fur. 100 mcg-umeclid 1 inh inhalation DAILY #60 ea 08/14/20 07/29/23 Rx 62.5 mcg-vilant 25 mcg inhalat.powder (Trelegy Ellipta) triamterene 37.5 1 tab PO DAILY 07/29/23 07/29/23 History mg-hydrochlorothiazide 25 mg tablet lidocaine 5 % topical patch See Rx Instructions topical 07/08/24 Rx .COMPLEX #15 ea methocarbamol 500 mg tablet 500 mg PO Q6H PRN muscle spasm #30 07/08/24 Rx tabs New Prescriptions to Start Prescriptions: Allergies Allergy/AdvReac Type Severity Reaction Status Date / Time No Known Allergies Allergy Verified 07/29/23 11:58 Objective Narrative: Physical Exam: General: Alert and oriented x3, no acute distress, pleasant and cooperative Lungs: Respirations even and unlabored, symmetrical chest expansion Eyes: PERRL Musculoskeletal: Flexion and extension of thoracic [spine] somewhat guarded secondary to pain, [antalgic gait noted] point tenderness along upper thoracic spine more prominent on the left side however did have additional point tenderness on the right Neurological: Speech clear, no gross sensory deficit Additional findings Additional findings: FINDINGS: Bones/joints: There is a new acute to subacute appearing severe T7 compression deformity with bony retropulsion into the spinal canal and effacement of the anterior thecal sac. The remainder of the vertebral body heights and alignment are maintained. There is aqzw-ah-rmikhwqb multilevel degenerative disc disease. Spinal cord: Normal signal. No cord compression. T1-T2: There is a small left-sided disc protrusion which partially effaces the anterior thecal sac. There is no significant spinal canal or neural foraminal stenosis. T2-T3: There is mild diffuse disc bulging without significant spinal canal or neural foraminal stenosis. T3-T4: No significant disc bulge or herniation. No severe spinal canal stenosis. No significant neural foraminal narrowing. T4-T5: No significant disc bulge or herniation. No severe spinal canal stenosis. No significant neural foraminal narrowing. T5-T6: No significant disc bulge or herniation. No severe spinal canal stenosis. No significant neural foraminal narrowing. T6-T7: There is a small central disc protrusion which partially effaces the anterior thecal sac. There is no significant spinal canal or neural foraminal stenosis. T7-T8: There is esnd-sa-oycaztpo spinal canal stenosis secondary to bony retropulsion from T7 and prominent epidural fat. There is iylc-jv-kqfiingv bilateral neural foraminal stenosis secondary to foraminal disc osteophyte bulging. T8-T9: There is a small central disc protrusion which partially effaces the anterior thecal sac. There is no significant spinal canal or neural foraminal stenosis. T9-T10: There is a small right paracentral disc osteophyte complex which partially effaces the anterior thecal sac. There is no significant spinal canal or neural foraminal stenosis. T10-T11: No significant disc bulge or herniation. No severe spinal canal stenosis. No significant neural foraminal narrowing. T11-T12: No significant disc bulge or herniation. No severe spinal canal stenosis. No significant neural foraminal narrowing. T12-L1: There is a small broad-based central disc protrusion which partially effaces the anterior thecal sac. There is no significant spinal canal or neural foraminal stenosis. Soft tissues: Unremarkable. IMPRESSION: 1. Severe acute to subacute T7 compression deformity which is new when compared with the 06/13/2024 exam. 2. Degenerative changes as described. Please see above for specific findings at each level. Assessment and Plan *Assessment and plan (1) Back pain, thoracic: Status: Acute Category: Medical Code(s): M54.6 - Pain in thoracic spine (2) Compression fracture of thoracic vertebra: Status: Acute Category: Medical Code(s): S22.000A - Wedge compression fracture of unspecified thoracic vertebra, initial encounter for closed fracture Plan Patient is experiencing worsening pain in his mid back with limited range of motion and point tenderness along his upper thoracic spine. Patient did not have thoracic x-ray along with MRI that did show a severe T7 compression fracture. I did discuss with the patient that he may be a beneficial candidate of a kyphoplasty procedure. Risk and benefits were discussed with the patient and he would like to proceed forward. I will also order the patient a DEXA scan. Patient will be ordered a back brace to reduce pain by restricting mobility of the spine and facilitate healing following an injury to the spine. Patient has already been sent in new prescriptions on her pain medication and muscle relaxers. I will order the patient a compounded cream. I did also discuss with the patient due to the severity of his pain and limited range of motion of his thoracic spine with point tenderness and radiating pain towards his ribs. I do believe he would benefit from a thoracic epidural at the site of the compression fracture. Risk and benefits were discussed with the patient and she would like to proceed forward with this plan of care. Patient is not currently on blood thinners. Patient has tried and failed conservative therapy including physical therapy however it made no difference in his current pain. Patient will be scheduled for a thoracic epidural steroid injection T7 under fluoroscopy. We will plan on most likely proceeding forward with a kyphoplasty as it does appear to be a acute on 7 chronic compression fracture of T7. Patient has been instructed to contact the clinic with any concerns before the next appointment. Dr. Katz has reviewed this note and agrees with this plan of care. This note was dictated using voice recognition software and make contain errors or omissions. All injections are used with Lidocaine, Bupivacaine and Depo Medrol. Occasionally urine drug screen is needed to verify patient's compliance with our office pain contract. This is ordered based off specific treatments related to chronic pain with the potential to abuse certain medications.
[2024-07-19 15:31] VITALS: BP 153/72; PULSE 100; RESP 18; O2SAT 96; BMI 39.2
== END 2024-07-19 23:59 | disposition home or self-care (01) ==
LOC: SC.PAIN 15:09
PROVIDERS: PCP Family Medicine; Visit Provider Nurse Practitioner Family
DX: M54.6 Pain in thoracic spine (principal); S22.000A Wedge compression fracture of unspecified thoracic vertebra, initial encounter for closed fracture; Z73.89 Other problems related to life management difficulty; Z96.659 Presence of unspecified artificial knee joint
CPT/HCPCS: 99202; G0463

== ENCOUNTER 2024-07-21 13:37 | Day surgery (SDC) | payer MEDICARE, SELFPAY ==
[2024-07-21 13:53] VITALS: BP 175/87; PULSE 103; RESP 16; O2SAT 96; BMI 38.1
[2024-07-21] MEDS: LIDOCAINE 1% 30ML PF VIAL 30 ML (14:36)
[2024-07-21] MEDS: methylPREDNISolone ACETATE 80MG/ML VIAL 80 MG (14:36)
[2024-07-21] MEDS: IOPAMIDOL-200 (41%);10ML VIAL 10 ML IV (14:49)
[2024-07-21 14:58] VITALS: BP 153/88; PULSE 99; RESP 16; O2SAT 95
--- NOTE | 2024-07-21 14:58 | EXP.PAIN.PRO ---
Procedure Date: 07/21/24 Time: 14:58 Anesthesiologist:: Camden Katz MD Complications:: None Pre-procedure Diagnosis:: Acute compression fracture of the T7 vertebral body Post-procedure Diagnosis:: Same Indications for Procedure:: This patient is a pleasant 68-year-old white male who has an acute compression fracture of the T7 vertebral body. We are ordering a DEXA scan to determine osteoporosis however we do believe this is an age-related compression fracture due to osteoporosis. Patient presents for a thoracic epidural steroid injection today to help with his pain symptoms. He does have a back brace that is ordered. Procedure Details:: Informed consent was obtained risk and benefits of the procedure were explained to the patient. The patient was taken to the procedure room. He was prepped in sterile fashion. The skin and subcutaneous tissues were anesthetized using lidocaine. A 17-gauge epidural needle was inserted and advanced into the T7-T8 interspace. After confirmation of needle placement in the epidural space with dye we injected Depo-Medrol 80 mg plus lidocaine 1% 1 mL into the epidural space. The patient tolerated the procedure well with no complications. We did discern that a T7 compression fracture for candidacy for balloon kyphoplasty. We will follow-up on the DEXA scan. Patient is a candidate for balloon kyphoplasty of the T7 vertebral body. Patient tolerated the procedure well with no complications. Plan and Disposition:: Will follow-up with this patient and 2 weeks we will seek approval for balloon kyphoplasty of the T7 vertebral body. After we receive his DEXA scan.
== END 2024-07-21 14:58 | disposition home or self-care (01) ==
LOC: SC.PAINP 13:40
PROVIDERS: PCP Family Medicine; Visit Provider Anesthesiology
DX: S22.060A Wedge compression fracture of T7-T8 vertebra, initial encounter for closed fracture (principal)
CPT/HCPCS: 62321; J1010; Q9966

== ENCOUNTER 2024-07-26 15:28 | Outpatient (CLI) | payer MEDICARE, SELFPAY ==
--- NOTE | 2024-07-26 15:37 | XR_ITS ---
FINAL REPORT TECHNIQUE: Bone densitometry calculations of the lumbar spine and left hip were obtained. CLINICAL HISTORY: COMPRESSION FRACTURE FINDINGS: Using L1-4, the bone mineral density of the spine is 1.231 g/cm2, corresponding to T-score of 1.3. Using the left hip, the bone mineral density of the femoral neck is 1.007 g/cm2, corresponding to a T-score of -0.2. Using the right hip, the bone mineral density of the femoral neck is 0.810 g/cm2, corresponding to a T-score of -0.9. NOTE: T-score: Standard deviation compared with peak bone mass of young adult mean. *Following the recommendations of the International Society of Bone densitometry, classification of hip BMD is based on the lower of two T-scores; total hip or femoral neck. IMPRESSION: Normal bone mineral density of the lumbar spine and bilateral hips. FRAX was not reported because all of the T-scores are at or above -1.0 Reviewed, Interpreted and Dictated by Lisbeth Eid MD Transcribed by Jammie Chase Authenticated and [facility]
== END 2024-07-26 23:59 | disposition home or self-care (01) ==
LOC: RAD 15:28
PROVIDERS: PCP Family Medicine; Visit Provider Anesthesiology
DX: S22.060A Wedge compression fracture of T7-T8 vertebra, initial encounter for closed fracture (principal)
CPT/HCPCS: 77080

== ENCOUNTER 2024-08-03 11:23 | Outpatient (POV) | payer MEDICARE, SELFPAY ==
--- NOTE | 2024-08-03 11:37 | EXP.PAIN.SOA ---
[facility] Disclaimer: The information contained in this section may have been updated after the patient was seen, as this information can be updated by other users. Medical History Elevated PSA History of back pain Asthma COPD (chronic obstructive pulmonary disease) Surgical History History of colonoscopy History of knee replacement Family History Other No significant family history Social History Smoking Status: Never smoker alcohol intake: current alcohol intake frequency: a few times a month substance use type: denies use current occupational status: other Travel in the last 8 weeks: None housing: house PM Subjective & Objective Subjective Subjective:: Patient is a pleasant 68-year-old male who presents today for follow-up of his thoracic epidural steroid injection at T7-T8 on 07/21/2024. Today he rates his pain a 9 out of 10. Patient states that he is still having quite a bit of pain from this injury. He states that the injection made absolutely no difference. He still has the severe pain all across to his mid back that does radiate into his ribs. Patient did have updated imaging that did show an acute fracture of the T7 level. Patient is in the process of being scheduled for a kyphoplasty in [place] however still currently pending patient is currently managed with tramadol 50 mg and does have metaxalone 800 mg 3 times daily from his PCP. He does state that he is almost out of these medications and does not have any updated appointments with this provider. His López has been reviewed and is appropriate. Review of Systems: General: No recent weight changes, no fever, no sleep disturbances Respiratory: No cough, no shortness of air, no recurring pulmonary infections Cardiovascular/peripheral vascular: No chest pain, no palpitations, no edema, no shortness of breath Gastrointestinal: No new onset incontinence, normal bowel movements reported Genitourinary: No new onset incontinence Musculoskeletal: Mid back pain, rib pain Psychiatric: [Normal mood/affect] Neurological: [Denies weakness in extremities], [denies balance issues] Pain at rest (0-10 scale): 9 Objective Objective:: Physical Exam: General: Alert and oriented x3, no acute distress, pleasant and cooperative Lungs: Respirations even and unlabored, symmetrical chest expansion Eyes: PERRL Musculoskeletal: Flexion and extension of thoracic [spine] somewhat guarded secondary to pain, [antalgic gait noted] Neurological: Speech clear, no gross sensory deficit Has patient had previous pain injection?: Yes Percent improvement in pain since last injection: 0 Conservative treatment options previously tried: Home exercise plan Length of treatment: Longer than 12-week Meds Home Medications and Allergies Home Medications ?Medication ?Instructions ?Recorded ?Confirmed ?Type omeprazole 40 mg capsule,delayed 40 mg PO DAILY GERD 09/08/18 07/21/24 History release albuterol sulfate 90 mcg/actuation 1 inh inhalation QID PRN shortness 08/14/20 07/21/24 Rx aerosol inhaler of breath or wheezing #8.5 grams fluticasone fur. 100 mcg-umeclid 1 inh inhalation DAILY #60 ea 08/14/20 07/21/24 Rx 62.5 mcg-vilant 25 mcg inhalat.powder (Trelegy Ellipta) triamterene 37.5 1 tab PO DAILY 07/29/23 07/21/24 History mg-hydrochlorothiazide 25 mg tablet lidocaine 5 % topical patch See Rx Instructions topical 07/08/24 07/21/24 Rx .COMPLEX #15 ea methocarbamol 500 mg tablet 500 mg PO Q6H PRN muscle spasm #30 07/08/24 07/21/24 Rx tabs New Prescriptions to Start Prescriptions: Allergies Allergy/AdvReac Type Severity Reaction Status Date / Time No Known Allergies Allergy Verified 07/29/23 11:58 Assessment and Plan *Assessment and plan (1) Compression fracture of thoracic vertebra: Status: Acute Category: Medical Code(s): S22.000A - Wedge compression fracture of unspecified thoracic vertebra, initial encounter for closed fracture (2) Back pain, thoracic: Status: Acute Category: Medical Code(s): M54.6 - Pain in thoracic spine (3) Pain of paraspinal muscle: Status: Acute Category: Medical Code(s): M79.18 - Myalgia, other site Plan Patient is continuing to experience significant pain related to an acute compression fracture of T7. Patient is in the process of being scheduled for the kyphoplasty at our [place] location. He has been given a tentative date of the however it is still currently pending. I did discuss with the patient that I will send in refills of his tramadol and Skelaxin and provide a 1 month supply. Patient will return to clinic in 1 month for reevaluation of symptoms and plan of care. Risks and benefits of the medication have been explained in detail to the patient. The patient does understand the risk of dependence on the medication when given over a prolonged period. Patient has been advised of risks of oversedation with the prescribed medication. Narcan has been offered to the paitent in the event of oversedation. Patient has been advised that a family member should also be educated regarding administration of Narcan. The patient has been advised to consult with his/her primary care provider and pharmacist regarding drug-drug interaction of medications currently prescribed. Patient has been prescribed a controlled substance after being counseled on the medication, medication safety, and possible side effects. Opioid contract was reviewed and signed by the patient, and that they have agreed to all of the terms set forth by our compliance program. A UDS is needed to verify patient's compliance with our office pain contract. This is ordered based off specific treatments related to chronic pain with the potential to abuse certain medications. Patient has been instructed to contact the clinic with any concerns before the next appointment. Dr. Katz has reviewed this note and agrees with this plan of care. This note was dictated using voice recognition software and make contain errors or omissions.
[2024-08-03 11:51] VITALS: BP 143/71; PULSE 96; RESP 14; O2SAT 96; BMI 37.4
== END 2024-08-03 23:59 | disposition home or self-care (01) ==
PROVIDERS: PCP Family Medicine; Visit Provider Nurse Practitioner Family
DX: S22.000A Wedge compression fracture of unspecified thoracic vertebra, initial encounter for closed fracture (principal); M54.6 Pain in thoracic spine; M79.18 Myalgia, other site
CPT/HCPCS: 99212; G0463

== ENCOUNTER 2024-08-25 12:19 | Outpatient (CLI) | payer MEDICARE, SELFPAY ==
--- NOTE | 2024-08-25 12:51 | ECG_ITS ---
APPROVED REPORT Exam: Resting ECG HR:106 bpm ECG Measurements Heart Rate 106 AXES DE 157 P 26 QRSd 89 QRS -3 QT 324 T 15 QTc 386 Conclusion SINUS TACHYCARDIA ABNORMAL RHYTHM ECG UNCONFIRMED REPORT Electronically signed by : Gerardo Yu MD 08/25/2024 15:48:25
[2024-08-25 12:56] VITALS: BMI 38.3
[2024-08-25 13:08] LABS: Basophils # 0.1 K/mm3 (0-0.2); Basophils % 0.7 % (0.1-2.0); Eosinophils # 0.5 K/mm3 (0.0-0.4); Eosinophils % 5.1 % (0.1-12.0); Hematocrit 40.5 % (42.0-52.0); Hemoglobin 14.5 g/dL (14.1-18.0); Lymphocytes # 2.1 K/mm3 (0.7-4.5); Lymphocytes % 19.9 % (10-50); Mean Corpuscular HGB Conc 35.8 g/dL (31.8-35.4); Mean Corpuscular Hemoglobin 34.8 pg (27.0-31.2); Mean Corpuscular Volume 97.1 fl (80-94); Mean Platelet Volume 10.3 fl (7.4-10.4); Monocytes # 1.7 K/mm3 (0.1-1.0); Monocytes % 16.3 % (1.7-9.3); Neutrophils % 57.8 % (37.0-80.0); Platelet Count 145 K/mm3 (142-424); Red Blood Count 4.17 M/mm3 (4.60-6.20); Red Cell Distribution Width 13.4 % (11.5-17.5); White Blood Count 10.4 K/mm3 (4.8-10.8)
[2024-08-25 13:14] LABS: Chloride 101 mmol/L (98-107)
[2024-08-25 13:15] LABS: Potassium 3.4 mmoL/L (3.5-5.1); Sodium 137 mmol/L (136-145)
[2024-08-25 13:18] LABS: Anion Gap 14.4 mEq/L (5-15); Blood Urea Nitrogen 19 mg/dl (9-20); Calcium 10.7 mg/dl (8.4-10.2); Carbon Dioxide 25 mmol/L (22.0-30.0); Creatinine Clearance Estimated 87 mL/min (50-200); Estimated Glomerular Filt Rate 55 ml/min (>60); GFR (African American) 67 ML/MIN (>60); Glucose 127 mg/dl (74-100)
== END 2024-08-25 23:59 | disposition home or self-care (01) ==
LOC: PREOP 12:20
PROVIDERS: Nurse Anesthetist, Certified Registered; PCP Family Medicine; Visit Provider Anesthesiology
DX: R00.0 Tachycardia, unspecified (principal); R94.31 Abnormal electrocardiogram [ECG] [EKG]
CPT/HCPCS: 80048; 85025; 93005

== ENCOUNTER 2024-09-01 06:53 | Day surgery (SDC) | payer MEDICARE, SELFPAY ==
[2024-09-01 07:09] VITALS: BMI 36.5
[2024-09-01] MEDS: LACTATED RINGERS 1000ML 1,000 ML 25 ML IV (07:27)
[2024-09-01 07:28] VITALS: BP 148/75; PULSE 93; RESP 18; TEMP 37.1; O2SAT 96
--- NOTE | 2024-09-01 08:06 | P.PNANES_ITS ---
[facility] Disclaimer: The information contained in this section may have been updated after the patient was seen, as this information can be updated by other users. Medical History Elevated PSA History of back pain Asthma COPD (chronic obstructive pulmonary disease) Surgical History History of colonoscopy History of knee replacement Family History Other Family history of prostate cancer Social History (Updated 09/01/24 @ 07:24 by Cyndy Aguilera RN) Smoking Status: Never smoker alcohol intake: never substance use type: denies use current occupational status: retired Travel in the last 8 weeks: None housing: house Have you lived/traveled outside [place] in past 30 days?: No Contact w/someone who lives/traveled outside US past 30 days?: No Exposure to someone with infectious disease in past 14 days?: No Do you have a fever (greater than 100.4 F or 38 C)?: No Have you tested positive for COVID-19: No Exposed to someone with COVID-19 in past 14 days?: No Do you have a sore throat?: No Do you have a cough?: No Do you have any weakness?: No Are you experiencing any nausea/vomitting?: No Do you have any diarrhea?: No Are you experiencing any unusual bleeding?: No Do you have any muscle aches/pain?: No Do you have any abdominal pain?: No Are you experiencing loss of taste or smell?: No [facility] Anesthesia Checklist Patient Identification Patient Identification: Arm Band Structural Data Admitted From: Home Planned Operative Procedure/s: T7 Kyphoplasty Consent for Planned Operative Procedure(s) Verified: Yes Verified Documents: Surgical Consent and History and Physical NPO Status Verified Time NPO: 00:00 Additional verifications Anesthesia Reactions: Yes (Double vision x 6 months after last colonoscopy? Resolved) Hx Blood Transfusions: No Blood Transfusion Reaction: No Airway Assessment Mallampati Score:: Class II C-Spine Mobility Assessed: Yes TMJ Mobility Assessed: Yes Dentition: Good Dentition Neurological Assessment Level of Consciousness: Awake, Alert and Appropriate Anesthesia Plan Anesthesia Risk discussed: Yes Anesthesia Plan: Verified ASA Class: II Anesthesia Type: MAC
[2024-09-01] MEDS: VANCOMYCIN HCL 2,000 MG in 0.9 % SODIUM CHLORIDE 250 ML 125 MG IV (08:30)
[2024-09-01] MEDS: LIDOCAINE 1% W/EPI 1:100,000 20ML VIAL 40 ML (09:33)
[2024-09-01 10:47] VITALS: BP 159/71; PULSE 107; RESP 16; TEMP 36.3; O2SAT 92
[2024-09-01] MEDS: IOPAMIDOL-200 (41%);10ML VIAL 10 ML IV ×3 (10:50)
[2024-09-01 10:57] VITALS: BP 163/78; PULSE 103; RESP 18; O2SAT 95
--- NOTE | 2024-09-01 11:03 | P.OP_ITS ---
Date of procedure: 09/01/24 Pre-op Diagnosis:: T7 compression fracture Post-op Diagnosis:: Same Procedure performed:: Balloon kyphoplasty T7 vertebral body Surgeon:: Camden Katz MD SENIOR INTERACTION DESIGNER:: Nic Malhotra Anesthesia: MAC Estimated blood loss (mL): 5 Clinical Note:: This patient is a pleasant 68-year-old white male who we are treating for a T7 compression fracture. It looks like he may have an acute on chronic compression fracture based on MRI done in June. We will do a balloon kyphoplasty to the T7 vertebral body today. Patient has failed all previous conservative treatments. Operative findings:: None Operative note:: Informed consent was obtained and risks and benefits of the procedure was explained to the patient. Patient was taken to the OR and was placed prone on the procedure table. The patient was prepped and draped in sterile fashion. I used 2 C arms for AP and lateral view of the T7 vertebral body. The skin and subcutaneous tissues were anesthetized using lidocaine. Bone access trochars were placed through the LEFT and RIGHT pedicle and advanced into the vertebral body. After accessing the vertebral body a balloon was inserted first on the LEFT side followed by the RIGHT side with approximately 3 mL of contrast placed in each balloon with good insufflation. After adequate spread of contrast through the balloon, the balloons were deflated and cement was introduced first on the LEFT side with placement of approximately 2-1/2 mL of cement with good spread throughout the vertebral body and then on the RIGHT side was approximately 1 1/2 mL cement with good spread throughout the vertebral body. There was no extrusion of cement through the lateral guajardo, anterior or posterior guajardo. Also no extrusion through superior. There was some extrusion of the inferior wall which is when we stopped. The bone access trochars were removed and dressing was placed. The patient was taken back to recovery in stable condition. He had good resolution of her back pain 5 minutes after the procedure. She tolerated the procedure well with no complications and was discharged home neurologically intact. Condition: stable Disposition: PACU Complications:: None
[2024-09-01 11:07] VITALS: BP 166/81; PULSE 101; RESP 16; O2SAT 95
[2024-09-01] MEDS: KETOROLAC 30MG/ML VIAL 30 MG IV (11:15)
[2024-09-01 11:17] VITALS: BP 161/77; PULSE 100; RESP 18; O2SAT 96
--- NOTE | 2024-09-04 16:38 | PC.NURSE ---
pt called today reporting pain in R rib cage area that began on Wednesday and also back spasms. Pt is s/p kyphoplasty on 09/01/24. Notified provider jennifer moffett of pt complaints. States to have pt get an xray of t-spine area and to make pt an appt for wednesday in the clinic. Called pt back to notify provider is ordering an xray and would like to see pt wednesday in office. Pt agreeable to this plan. States he will get xray prior to coming to office visit. Appt time given to pt for 1pm on Wednesdaysep 06.
== END 2024-09-01 11:31 | disposition home or self-care (01) ==
PROVIDERS: PCP Family Medicine; Visit Provider Anesthesiology
PROC: (CPT 22513; principal; 2024-09-01 08:30)
DX: M80.08XA Age-related osteoporosis with current pathological fracture, vertebra(e), initial encounter for fracture (principal); S22.060A Wedge compression fracture of T7-T8 vertebra, initial encounter for closed fracture
CPT/HCPCS: 22513; 96374; C1713; J1885; J2704; J3010; J3370; J7120; Q9966

== ENCOUNTER 2024-09-05 13:52 | Outpatient (CLI) | payer MEDICARE, SELFPAY ==
--- NOTE | 2024-09-05 13:58 | XR_ITS ---
FINAL REPORT CLINICAL HISTORY: increased pain/ pt had kyphoplasty last wednesday. increase pain since COMPARISON: 06/13/2024 FINDINGS: THORACIC SPINE: AP, lateral, and swimmer's views of the thoracic spine were obtained. There is vertebral plana of a mid thoracic vertebra with associated post kyphoplasty changes. Resultant kyphosis is present at that level. This is new since the prior exam of 06/13/2024. Should symptoms persist would suggest MRI or CT for further evaluation. Paraspinal soft tissues are within normal limits. IMPRESSION: Vertebral plana of mid thoracic vertebral body with associated post kyphoplasty changes, with resultant kyphosis, new since 06/13/2024. If symptoms persist would suggest MRI or CT for further evaluation. Reviewed, Interpreted and Dictated by Lisbeth Eid MD Transcribed by Edwina Pro Authenticated and [facility]
== END 2024-09-05 23:59 | disposition home or self-care (01) ==
LOC: RAD 13:54
PROVIDERS: PCP Family Medicine; Visit Provider Nurse Practitioner Family
DX: M54.6 Pain in thoracic spine (principal); Z98.890 Other specified postprocedural states
CPT/HCPCS: 72072

== ENCOUNTER 2024-09-06 13:11 | Outpatient (POV) | payer MEDICARE, SELFPAY ==
[2024-09-06 13:32] VITALS: BP 125/69; PULSE 100; RESP 14; O2SAT 95; BMI 36.9
--- NOTE | 2024-09-06 13:49 | EXP.PAIN.SOA ---
[facility] Disclaimer: The information contained in this section may have been updated after the patient was seen, as this information can be updated by other users. Medical History (Updated 09/06/24 @ 13:51 by Victorina Gonzales APRN) Elevated PSA History of back pain Asthma COPD (chronic obstructive pulmonary disease) Surgical History History of colonoscopy History of knee replacement Family History Other Family history of prostate cancer Social History Smoking Status: Never smoker alcohol intake: never substance use type: denies use current occupational status: other Travel in the last 8 weeks: None housing: house Have you lived/traveled outside US in past 30 days?: No Contact w/someone who lives/traveled outside US past 30 days?: No Exposure to someone with infectious disease in past 14 days?: No Do you have a fever (greater than 100.4 F or 38 C)?: No Have you tested positive for COVID-19: No Exposed to someone with COVID-19 in past 14 days?: No Do you have a sore throat?: No Do you have a cough?: No Do you have any weakness?: No Do you have any diarrhea?: No Are you experiencing any unusual bleeding?: No Do you have any muscle aches/pain?: No Do you have any abdominal pain?: No Are you experiencing loss of taste or smell?: No PM Subjective & Objective Subjective Subjective:: Patient is a pleasant 68-year-old male who presents today for follow-up of his T7 kyphoplasty. Today he rates his pain a 1 out of 10. Patient states that he did have improvement of his overall pain that he was having with spasms and that it is not nearly as often or as severe. He does state however with times of coughing or sneezing he will have pain that radiates from his mid back down into his low back and into his legs. Patient does feel like his legs are just weak in general. He does state from our last appointment that he has stopped taking the pain medication because it was upsetting his stomach. Patient does state that he has had improvement with the muscle relaxers and continues to take those and would like refills. He is currently managed with Skelaxin 800 mg 3 times daily as needed. His López has been reviewed and is appropriate. Review of Systems: General: No recent weight changes, no fever, no sleep disturbances Respiratory: No cough, no shortness of air, no recurring pulmonary infections Cardiovascular/peripheral vascular: No chest pain, no palpitations, no edema, no shortness of breath Gastrointestinal: No new onset incontinence, normal bowel movements reported Genitourinary: No new onset incontinence Musculoskeletal: Mid back pain, low back pain, leg weakness Psychiatric: [Normal mood/affect] Neurological: [Denies weakness in extremities], [denies balance issues] Pain at rest (0-10 scale): 1 Objective Objective:: Physical Exam: General: Alert and oriented x3, no acute distress, pleasant and cooperative Lungs: Respirations even and unlabored, symmetrical chest expansion Eyes: PERRL Musculoskeletal: Flexion and extension of lumbar [spine] somewhat guarded secondary to pain, [antalgic gait noted] Neurological: Speech clear, no gross sensory deficit Has patient had previous pain injection?: No Conservative treatment options previously tried: Home exercise plan Length of treatment: Longer than 12 weeks Meds Home Medications and Allergies Home Medications ?Medication ?Instructions ?Recorded ?Confirmed ?Type omeprazole 40 mg capsule,delayed 40 mg PO DAILY GERD 09/08/18 09/06/24 History release fluticasone fur. 100 mcg-umeclid 1 inh inhalation DAILY #60 ea 08/14/20 09/06/24 Rx 62.5 mcg-vilant 25 mcg inhalat.powder (Trelegy Ellipta) triamterene 37.5 1 tab PO DAILY 07/29/23 09/06/24 History mg-hydrochlorothiazide 25 mg tablet methocarbamol 500 mg tablet 500 mg PO Q6H PRN muscle spasm #30 07/08/24 09/06/24 Rx tabs metaxalone 800 mg tablet 800 mg PO TID PRN muscle pain #90 08/03/24 09/06/24 Rx tabs tramadol 50 mg tablet 50 mg PO TID #90 tabs 08/03/24 09/06/24 Rx New Prescriptions to Start Prescriptions: Allergies Allergy/AdvReac Type Severity Reaction Status Date / Time No Known Allergies Allergy Verified 09/01/24 07:29 Assessment and Plan *Assessment and plan (1) Back pain, thoracic: Status: Acute Category: Medical Code(s): M54.6 - Pain in thoracic spine (2) Compression fracture of thoracic vertebra: Status: Acute Category: Medical Code(s): S22.000A - Wedge compression fracture of unspecified thoracic vertebra, initial encounter for closed fracture (3) Low back pain: Status: Acute Category: Medical Code(s): M54.50 - Low back pain, unspecified (4) Lumbar radiculopathy: Status: Acute Category: Medical Code(s): M54.16 - Radiculopathy, lumbar region Plan Patient did have an updated x-ray due to his worsening pain that he called Wednesday on. I did review over the findings related to this and it did show postoperative kyphoplasty changes with resultant kyphosis. There are no new fractures on this x-ray imaging. I did discuss with the patient that we can order additional advanced imaging if his pain continues however at this time he would like to wait. We did discuss doing a CT in future due to the prolonged positioning. I did also discuss with the patient that the worsening low back pain that does radiate into his legs with weakness may be more related to lumbar stenosis and that we can try injections if this continues to bother him. I will refill his muscle relaxers and also send in a 7-day dose of prednisone 20 mg twice daily. Patient does already have a follow-up on September 15. Patient was counseled to call us if he needs anything in between now and that appointment. He agrees with this plan of care. Patient has been instructed to contact the clinic with any concerns before the next appointment. Dr. Katz has reviewed this note and agrees with this plan of care. This note was dictated using voice recognition software and make contain errors or omissions. All injections are used with Lidocaine, Bupivacaine and Depo Medrol. Occasionally urine drug screen is needed to verify patient's compliance with our office pain contract. This is ordered based off specific treatments related to chronic pain with the potential to abuse certain medications.
== END 2024-09-06 23:59 | disposition home or self-care (01) ==
PROVIDERS: PCP Family Medicine; Visit Provider Nurse Practitioner Family
DX: M54.6 Pain in thoracic spine (principal); S22.000A Wedge compression fracture of unspecified thoracic vertebra, initial encounter for closed fracture; M54.50 Low back pain, unspecified; M54.16 Radiculopathy, lumbar region
CPT/HCPCS: 99212; G0463

== ENCOUNTER 2024-09-13 05:48 | Emergency (ER) | payer MEDICARE, SELFPAY ==
[2024-09-13] VITALS (7 sets, daily range): BP systolic 119–167; BP diastolic 62–92; PULSE 96–108; RESP 16–18; TEMP 36.6–36.7; O2SAT 93–98; BMI 36.6
--- NOTE | 2024-09-13 05:53 | ED_ITS ---
Discharge Plan Disposition Chief Complaint: PAIN Prescriptions Prescriptions: No Action Jeremi Hayesta 100-62.5-25 mcg blister with device 1 inh INHALATION DAILY Qty: 60 4RF omeprazole 40 MG capsule,delayed release(DR/EC) 40 mg PO DAILY triamterene-hydrochlorothiazid 37.5-25 mg tablet 1 tab PO DAILY Patient Comments: TAKE 1 2 (ONE HALF) TABLET BY MOUTH ONCE DAILY FOR 90 DAYS prednisone 20 mg tablet 20 mg PO BID Qty: 14 0RF metaxalone 800 mg tablet 800 mg PO TID PRN (Reason: muscle pain) Qty: 90 2RF methocarbamol 500 mg tablet 500 mg PO Q6H PRN (Reason: muscle spasm) Qty: 30 0RF tramadol 50 mg tablet 50 mg PO TID Qty: 90 0RF Referrals Follow up/Referrals: Parrish Thurman MD [Primary Care Provider] - See instructions Print Language Print Language: Hebrew Discharge ED Provider: Shashank Sawyer General Adult HPI <Shashank Sawyer MD - Last Filed: 09/13/24 06:53> General Chief complaint: PAIN Stated complaint: back spasms, trouble breathing, weakness in legs Time Seen by Provider: 09/13/24 05:52 History of Present Illness HPI narrative: 68-year-old male with history of compression fracture of the spine presents with worsening back pain and leg weakness approximately 2 weeks after balloon kyphoplasty with Dr. Katz. He has been taking his pain meds and muscle relaxers at home without improvement. He reports that his back keeps spasming. He is also reporting shortness of breath. He reports that he has been having leg weakness. It has been worsening over the last couple of days. He reports that he does okay when he first starts but he gets weak quickly and then all of a sudden they will go out . He denies any numbness. Denies any urinary or stool incontinence or retention. Related Data Home Medications ?Medication ?Instructions ?Recorded ?Confirmed omeprazole 40 mg capsule,delayed 40 mg PO DAILY GERD 09/08/18 09/13/24 release triamterene 37.5 1 tab PO DAILY 07/29/23 09/13/24 mg-hydrochlorothiazide 25 mg tablet Previous Rx's ?Medication ?Instructions ?Recorded fluticasone fur. 100 mcg-umeclid 1 inh inhalation DAILY #60 ea 08/14/20 62.5 mcg-vilant 25 mcg inhalat.powder (Trelegy Ellipta) methocarbamol 500 mg tablet 500 mg PO Q6H PRN muscle spasm #30 07/08/24 tabs tramadol 50 mg tablet 50 mg PO TID #90 tabs 08/03/24 metaxalone 800 mg tablet 800 mg PO TID PRN muscle pain #90 09/06/24 tabs prednisone 20 mg tablet 20 mg PO BID #14 tabs 09/06/24 Allergies Allergy/AdvReac Type Severity Reaction Status Date / Time No Known Allergies Allergy Verified 09/01/24 07:29 [facility] <Shashank Sawyer MD - Last Filed: 09/13/24 06:53> [facility] Disclaimer: The information contained in this section may have been updated after the patient was seen, as this information can be updated by other users. Medical History (Updated 09/06/24 @ 13:51 by Victorina Gonzales APRN) Elevated PSA History of back pain Asthma COPD (chronic obstructive pulmonary disease) Surgical History History of colonoscopy History of knee replacement Family History Other Family history of prostate cancer Social History Smoking Status: Never smoker alcohol intake: never substance use type: denies use current occupational status: other Travel in the last 8 weeks: None housing: house Have you lived/traveled outside US in past 30 days?: No Contact w/someone who lives/traveled outside US past 30 days?: No Exposure to someone with infectious disease in past 14 days?: No Do you have a fever (greater than 100.4 F or 38 C)?: No Have you tested positive for COVID-19: No Exposed to someone with COVID-19 in past 14 days?: No Do you have a sore throat?: No Do you have a cough?: No Do you have any weakness?: No Do you have any diarrhea?: No Are you experiencing any unusual bleeding?: No Do you have any muscle aches/pain?: No Do you have any abdominal pain?: No Are you experiencing loss of taste or smell?: No Other Medical History Have you received the Flu Vaccine for this season: Yes Have you received the Pneumonia Vaccine: Yes <Shashank Sawyer MD - Last Filed: 09/13/24 06:53> ROS Obtained: Yes All systems reviewed & no additional complaints except as documented Physical Exam <Shashank Sawyer MD - Last Filed: 09/13/24 06:53> General General appearance: alert Comment: Uncomfortable appearing Head Head exam: atraumatic and normocephalic Eye Eye exam: Present normal appearance, PERRL and EOMI ENT ENT exam: Present normal oropharynx and normal external ear exam Neck Neck exam: Present normal inspection and full ROM Chest Chest inspection: Present normal inspection and symmetric chest wall rise; Absent tenderness Respiratory Respiratory exam: Present normal lung sounds bilaterally; Absent respiratory distress Cardiovascular Cardiovascular exam: Present regular rate and normal rhythm Abdominal Exam Abdominal exam: Present soft; Absent distention, tenderness or guarding Extremities Exam Extremities exam: Present normal inspection; Absent edema or joint swelling Back Exam Back exam: Present normal inspection (No significant erythema or induration. Incision site well-appearing) and tenderness (Midline and paraspinal thoracic tenderness) Neurological Exam Neurological exam: Present alert and oriented X3; Absent motor sensory deficit Psychiatric Psychiatric exam: Present normal affect and normal mood Skin Skin exam: Present warm, dry and normal color Lymphatic Lymphatic Findings: no adenopathy Medical Decision Making <Shashank Sawyer MD - Last Filed: 09/13/24 06:53> Medical Records Medical records reviewed: Yes I reviewed the patient's medical records. Screening: Per USPSTF and CDC recommendations, given the prevalence of disease in our region, it is our hospital?s policy to screen for HIV and viral Hepatitis for all patients aged 18 and over and those with ongoing risk factors. López Inquiry Pt receiving controlled substance: No López was queried for this patient: No Vital Signs: 09/13/24 05:50 09/13/24 06:02 09/13/24 06:15 Temperature 97.9 F Temperature Source Oral Pulse Rate 108 H 97 H Pulse Rate [Right Radial] 103 H Respiratory Rate 18 Blood Pressure Blood Pressure [Right Arm] 167/92 H Blood Pressure Mean [Right Arm] 117 Blood Pressure Source [Right Arm] Automatic Cuff Blood Pressure Position [Right Arm] Supine 02 Sat by Pulse Oximetry 97 98 98 Oxygen Delivery Method Room Air 09/13/24 07:00 09/13/24 07:30 09/13/24 08:00 Temperature Temperature Source Pulse Rate 96 H 104 H 96 H Pulse Rate [Right Radial] Respiratory Rate Blood Pressure 126/62 138/69 119/66 Blood Pressure [Right Arm] Blood Pressure Mean [Right Arm] Blood Pressure Source [Right Arm] Blood Pressure Position [Right Arm] 02 Sat by Pulse Oximetry 93 L 96 95 Oxygen Delivery Method Room Air Room Air Lab Data Lab results reviewed: Yes I reviewed the patient's lab results. Lab Results 09/13/24 06:18: WBC 14.2 H, RBC 4.11 L, Hgb 14.2, Hct 40.3 L, MCV 98.1 H, MCH 34.5 H, MCHC 35.2, RDW 13.2, Plt Count 176, MPV 10.7 H, Neut % (Auto) 70.6, Lymph % (Auto) 12.7, Candler % (Auto) 15.2 H, Eos % (Auto) 0.7, Baso % (Auto) 0.4, Neut # (Auto) 10.0 H, Lymph # (Auto) 1.8, Candler # (Auto) 2.2 H, Eos # (Auto) 0.1, Baso # (Auto) 0.1, ESR 17, PT 11.9, INR 1.07, D-Dimer 0.52 H, Sodium 136, Potassium 3.7, Chloride 103, Carbon Dioxide 22, Anion Gap 14.7, BUN 27 H, Creatinine 1.00, Estimated Creat Clear 111, Estimated GFR 75, Est GFR ( Amer) 90, Glucose 132 H, Calcium 10.1, Total Bilirubin 1.7 H, AST 52, ALT 40, Alkaline Phosphatase 63, C-Reactive Protein 26.3 H, Total Protein 6.8, Albumin 4.5, Globulin 2.3, Albumin/Globulin Ratio 2.0 H 09/13/24 06:18 09/13/24 06:18 Orders (Tests/Meds): ED MEDICATIONS Discontinued Medications Generic Name Dose Route Start Last Admin Trade Name Freq PRN Reason Stop Dose Admin Acetaminophen 1,000 mg 09/13/24 06:07 09/13/24 06:18 Acetaminophen 500mg Tab PO 09/13/24 06:08 1,000 mg ONCE ONE Administration Cyclobenzaprine HCl 10 mg 09/13/24 06:07 09/13/24 06:18 Cyclobenzaprine 10mg Tablet PO 09/13/24 06:08 10 mg ONCE ONE Administration Hydromorphone HCl 1 mg 09/13/24 06:07 09/13/24 06:19 Hydromorphone 2mg/Ml Syringe IV 09/13/24 06:08 1 mg ONCE ONE Administration ORDERS Category Date Time Status CT thoracic spine wo con Stat Cat Scan 09/13/24 06:07 Completed CXR --portable [XR chest portable] Stat Exams 09/13/24 07:38 Completed BNP [NT Pro Brain Natriuretic Pep.] Stat Lab 09/13/24 06:18 Received CBC w/Auto Diff [Complete Blood Count Auto Diff] Stat Lab 09/13/24 06:18 Completed CMP [Comprehensive Metabolic Panel] Stat Lab 09/13/24 06:18 Completed CRP [C-Reactive Protein] Stat Lab 09/13/24 06:18 Completed D-Dimer Stat Lab 09/13/24 06:18 Completed ESR [Erythrocyte Sedimentation Rate] Stat Lab 09/13/24 06:18 Completed INR [Prothrombin Time INR] Stat Lab 09/13/24 06:18 Completed Medical Decision Narrative: 68-year-old male with history of recent balloon kyphoplasty with Dr. Katz presents with worsening severe back pain, muscle spasms, shortness of breath and intermittent leg weakness. History was obtained via interactive discussion with patient, chart review. On arrival, patient is [afebrile, hemodynamically stable, satting appropriately, alert, oriented x4, GCS 15], moving all extremities spontaneously. Full physical exam performed and significant for well-appearing incision site, significant tenderness over the midline and paraspinal thoracic spine. Patient has normal sensation and strength in bilateral lower extremities on exam Differential includes but is not limited to sequela of recent surgery, fracture, dislocation, osteomyelitis,, epidural abscess, epidural hematoma, pneumonia, PE. Patient was given Dilaudid, Flexeril Tylenol for symptomatic management and correction of underlying abnormalities. Workup initiated including CBC CMP ESR CRP D-dimer INR CT thoracic spine. At this time care handed off to oncoming physician pending laboratory and imaging workup <Krunal Danielson MD - Last Filed: 09/13/24 09:17> Vital Signs: 09/13/24 05:50 09/13/24 06:02 09/13/24 06:15 Temperature 97.9 F Temperature Source Oral Pulse Rate 108 H 97 H Pulse Rate [Right Radial] 103 H Respiratory Rate 18 Blood Pressure Blood Pressure [Right Arm] 167/92 H Blood Pressure Mean [Right Arm] 117 Blood Pressure Source [Right Arm] Automatic Cuff Blood Pressure Position [Right Arm] Supine 02 Sat by Pulse Oximetry 97 98 98 Oxygen Delivery Method Room Air 09/13/24 07:00 09/13/24 07:30 09/13/24 08:00 Temperature Temperature Source Pulse Rate 96 H 104 H 96 H Pulse Rate [Right Radial] Respiratory Rate Blood Pressure 126/62 138/69 119/66 Blood Pressure [Right Arm] Blood Pressure Mean [Right Arm] Blood Pressure Source [Right Arm] Blood Pressure Position [Right Arm] 02 Sat by Pulse Oximetry 93 L 96 95 Oxygen Delivery Method Room Air Room Air Lab Data Lab Results 09/13/24 06:18: WBC 14.2 H, RBC 4.11 L, Hgb 14.2, Hct 40.3 L, MCV 98.1 H, MCH 34.5 H, MCHC 35.2, RDW 13.2, Plt Count 176, MPV 10.7 H, Neut % (Auto) 70.6, Lymph % (Auto) 12.7, Candler % (Auto) 15.2 H, Eos % (Auto) 0.7, Baso % (Auto) 0.4, Neut # (Auto) 10.0 H, Lymph # (Auto) 1.8, Candler # (Auto) 2.2 H, Eos # (Auto) 0.1, Baso # (Auto) 0.1, ESR 17, PT 11.9, INR 1.07, D-Dimer 0.52 H, Sodium 136, Potassium 3.7, Chloride 103, Carbon Dioxide 22, Anion Gap 14.7, BUN 27 H, Creatinine 1.00, Estimated Creat Clear 111, Estimated GFR 75, Est GFR ( Amer) 90, Glucose 132 H, Calcium 10.1, Total Bilirubin 1.7 H, AST 52, ALT 40, Alkaline Phosphatase 63, C-Reactive Protein 26.3 H, Total Protein 6.8, Albumin 4.5, Globulin 2.3, Albumin/Globulin Ratio 2.0 H Orders (Tests/Meds): ED MEDICATIONS Discontinued Medications Generic Name Dose Route Start Last Admin Trade Name Freq PRN Reason Stop Dose Admin Acetaminophen 1,000 mg 09/13/24 06:07 09/13/24 06:18 Acetaminophen 500mg Tab PO 09/13/24 06:08 1,000 mg ONCE ONE Administration Cyclobenzaprine HCl 10 mg 09/13/24 06:07 09/13/24 06:18 Cyclobenzaprine 10mg Tablet PO 09/13/24 06:08 10 mg ONCE ONE Administration Hydromorphone HCl 1 mg 09/13/24 06:07 09/13/24 06:19 Hydromorphone 2mg/Ml Syringe IV 09/13/24 06:08 1 mg ONCE ONE Administration ORDERS Category Date Time Status CT thoracic spine wo con Stat Cat Scan 09/13/24 06:07 Completed CXR --portable [XR chest portable] Stat Exams 09/13/24 07:38 Completed BNP [NT Pro Brain Natriuretic Pep.] Stat Lab 09/13/24 06:18 Received CBC w/Auto Diff [Complete Blood Count Auto Diff] Stat Lab 09/13/24 06:18 Completed CMP [Comprehensive Metabolic Panel] Stat Lab 09/13/24 06:18 Completed CRP [C-Reactive Protein] Stat Lab 09/13/24 06:18 Completed D-Dimer Stat Lab 09/13/24 06:18 Completed ESR [Erythrocyte Sedimentation Rate] Stat Lab 09/13/24 06:18 Completed INR [Prothrombin Time INR] Stat Lab 09/13/24 06:18 Completed Medical Decision Narrative: 68-year-old male with history of recent balloon kyphoplasty with Dr. Katz presents with worsening severe back pain, muscle spasms, shortness of breath and intermittent leg weakness. History was obtained via interactive discussion with patient, chart review. On arrival, patient is [afebrile, hemodynamically stable, satting appropriately, alert, oriented x4, GCS 15], moving all extremities spontaneously. Full physical exam performed and significant for well-appearing incision site, significant tenderness over the midline and paraspinal thoracic spine. Patient has normal sensation and strength in bilateral lower extremities on exam Differential includes but is not limited to sequela of recent surgery, fracture, dislocation, osteomyelitis,, epidural abscess, epidural hematoma, pneumonia, PE. Patient was given Dilaudid, Flexeril Tylenol for symptomatic management and correction of underlying abnormalities. Workup initiated including CBC CMP ESR CRP D-dimer INR CT thoracic spine. At this time care handed off to oncoming physician pending laboratory and imaging workup Krunal Danielson: Upon assumption of care patient was hemodynamically stable. Patient has longstanding history of chronic back pain however has gotten acutely worse since his thoracic vertebroplasty. When he stands up to ambulate his legs intermittently giving out are new and have never happened before. He does have some shortness of breath with minimal cough in addition to his back and leg symptoms. Workup thus far reviewed by me hematologic unremarkable for leukocytosis of 14.2, no anemia no coagulopathy pulmonary embolism excluded per years criteria with D-dimer, no DWAINE or critical electrolyte abnormality, CRP mildly elevated. Will proceed with T-spine CT scan. However given intermittent legs giving out patient requires MRI although he does not have saddle anesthesia. Postvoid residual will also be obtained. Postvoid residual unconcerning is less than [address] imaging informally visualized by me, obvious retropulsion at T7. Formal significant canal stenosis at kyphoplasty level due to retropulsion of bone and probable cord contouring. Case discussed [facility] Dr. Clements and Dr. Olvera who graciously accepted patient for transfer for continued evaluation at this time. Procedures <Shashank Sawyer MD - Last Filed: 09/13/24 06:53> Risk/Benefits of Procedure(s) Were Explained: Yes Critical Care <Shashank Sawyer MD - Last Filed: 09/13/24 06:53> Critical Care Time Critical Care Time: No
--- NOTE | 2024-09-13 06:07 | CT_ITS ---
FINAL REPORT CLINICAL HISTORY: recent kyphoplasty, worsening pain COMPARISON: 09/05/2024 FINDINGS: CT THORACIC SPINE TECHNIQUE: Thin section axial CT with sagittal and coronal reconstructions This study was performed with techniques to keep radiation doses as low as reasonably achievable, (ALARA). Individualized dose reduction techniques using automated exposure control or adjustment of mA and/or kV according to the patient's size were employed. FINDINGS: There is kyphoplasty at T7 with vertebral plana. There is a significant retropulsion by 5 mm resulting in 50% canal stenosis and probable cord contact. No other fracture or bony canal stenosis is seen. 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 Reviewed, Interpreted and Dictated by Lisbeth Eid MD Transcribed by Shira Ponce Authenticated and [facility]
[2024-09-13] MEDS: ACETAMINOPHEN 500MG TAB 1000 MG PO (06:18)
[2024-09-13] MEDS: CYCLOBENZAPRINE 10MG TABLET 10 MG PO (06:18)
[2024-09-13] MEDS: HYDROMORPHONE 2MG/ML SYRINGE 1 MG IV ×2 (06:19→10:21)
[2024-09-13 06:44] LABS: Alanine Aminotransferase 40 U/L (12-78); Albumin Level 4.5 g/dl (3.5-5.0); Alkaline Phosphatase 63 U/L (38-126); Anion Gap 14.7 mEq/L (5-15); Aspartate Amino Transferase 52 U/L (17-59); Bilirubin,Total 1.7 mg/dl (0.2-1.3); Blood Urea Nitrogen 27 mg/dl (9-20); Calcium 10.1 mg/dl (8.4-10.2); Carbon Dioxide 22 mmol/L (22.0-30.0); Chloride 103 mmol/L (98-107); Creatinine Clearance Estimated 111 mL/min (50-200); Estimated Glomerular Filt Rate 75 ml/min (>60); GFR (African American) 90 ML/MIN (>60); Globulin 2.3 g/dL (1.3-3.2); Glucose 132 mg/dl (74-100); Potassium 3.7 mmoL/L (3.5-5.1); Sodium 136 mmol/L (136-145); Total Protein,Serum 6.8 g/dl (6.3-8.2)
[2024-09-13 06:51] LABS: Basophils # 0.1 K/mm3 (0-0.2); Basophils % 0.4 % (0.1-2.0); Eosinophils # 0.1 K/mm3 (0.0-0.4); Eosinophils % 0.7 % (0.1-12.0); Hematocrit 40.3 % (42.0-52.0); Hemoglobin 14.2 g/dL (14.1-18.0); Lymphocytes # 1.8 K/mm3 (0.7-4.5); Lymphocytes % 12.7 % (10-50); Mean Corpuscular HGB Conc 35.2 g/dL (31.8-35.4); Mean Corpuscular Hemoglobin 34.5 pg (27.0-31.2); Mean Corpuscular Volume 98.1 fl (80-94); Mean Platelet Volume 10.7 fl (7.4-10.4); Monocytes # 2.2 K/mm3 (0.1-1.0); Monocytes % 15.2 % (1.7-9.3); Neutrophils % 70.6 % (37.0-80.0); Platelet Count 176 K/mm3 (142-424); Red Blood Count 4.11 M/mm3 (4.60-6.20); Red Cell Distribution Width 13.2 % (11.5-17.5); White Blood Count 14.2 K/mm3 (4.8-10.8)
[2024-09-13 07:01] LABS: INR 1.07 (0.9-1.1); Prothrombin Time 11.9 seconds (10.1-12.5)
[2024-09-13 07:04] LABS: C-Reactive Protein 26.3 mg/L (0-4)
[2024-09-13 07:23] LABS: D-Dimer 0.52 ug/mL (0.0-0.5)
--- NOTE | 2024-09-13 07:36 | PC.NURSE ---
pt is gone to ct via stretcher
--- NOTE | 2024-09-13 07:38 | XR_ITS ---
FINAL REPORT TECHNIQUE: Single view chest CLINICAL HISTORY: SOB FINDINGS: A single view of the chest was obtained. The heart and mediastinum are within normal limits. The lungs are clear. There is no pneumothorax. IMPRESSION: No acute cardiopulmonary process. Reviewed, Interpreted and Dictated by Lisbeth Eid MD Transcribed by Shira Ponce Authenticated and [facility]
--- NOTE | 2024-09-13 07:48 | PC.NURSE ---
pt arrived back to room from ct
[2024-09-13 08:00] LABS: Erythrocyte Sedimentation Rate 17 mm/hr (0-20)
--- NOTE | 2024-09-13 08:07 | PC.NURSE ---
wants to cancel MRI orders and request transfer to [facility]
--- NOTE | 2024-09-13 08:08 | PC.NURSE ---
radiology powersharing images to [facility]
--- NOTE | 2024-09-13 08:09 | PC.NURSE ---
CALLED [facility] PER DR. PINTO FOR POSS TRANSFER DUE TO CONCERN FOR SPINAL CORD COMPRESSION. [facility] STATED THAT THEY WOULD GIVE US A CALL BACK.
--- NOTE | 2024-09-13 08:10 | PC.NURSE ---
pt was provided a urinal and is assisting pt with urinal. ryan brito will scan pt bladder after ua for pvr
--- NOTE | 2024-09-13 08:21 | PC.NURSE ---
SPEAKING WITH AT THIS TIME
--- NOTE | 2024-09-13 08:30 | PC.NURSE ---
pts PVR is 7ml
[2024-09-13 09:06] LABS: NT Pro Brain Natriuretic Pep. 189 pg/mL (0-125)
--- NOTE | 2024-09-13 09:20 | PC.NURSE ---
report called to benja gaines ander LEAL
--- NOTE | 2024-09-13 10:15 | PC.NURSE ---
ROUNDED ON THE PT. THE PT VOICES THAT HE DOES NOT NEED ANYTHING AT THIS TIME. CALL LIGHT IS WITHIN REACH OF THE PT.
== END 2024-09-13 12:22 | disposition home or self-care (01) ==
PROVIDERS: Emergency Medicine; Emergency Provider Emergency Medicine; PCP Family Medicine
DX: G95.20 Unspecified cord compression (principal); M54.9 Dorsalgia, unspecified; R53.1 Weakness; R06.02 Shortness of breath
CPT/HCPCS: 71045; 72128; 80053; 83880; 85025; 85378; 85610; 85651; 86140; 96374; 96376; 99284; J1171

== ENCOUNTER 2024-11-17 13:20 | Outpatient (CLI) | payer MEDICARE, SELFPAY ==
[2024-11-18 08:12] LABS: PSA, Free 2.09 ng/mL; Prostate Specific Ag 6.2 ng/mL (0.0-4.0)
== END 2024-11-17 23:59 | disposition home or self-care (01) ==
PROVIDERS: PCP Family Medicine; Visit Provider Urology
DX: Z12.5 Encounter for screening for malignant neoplasm of prostate (principal); R97.20 Elevated prostate specific antigen [PSA]
CPT/HCPCS: 36415; 84153; 84154

== ENCOUNTER 2025-02-07 14:00 | Outpatient (RCR) | payer MEDICARE, SELFPAY | END 2025-02-07 23:59 | disposition home or self-care (01) | LOC: PT 14:00 | PROVIDERS: PCP Family Medicine; Visit Provider Nurse Practitioner Family | DX: S22.000A Wedge compression fracture of unspecified thoracic vertebra, initial encounter for closed fracture (principal); C90.00 Multiple myeloma not having achieved remission; R29.898 Other symptoms and signs involving the musculoskeletal system | CPT/HCPCS: 97110; 97112; 97162; 97530 ==

== ENCOUNTER 2025-02-27 11:00 | Outpatient (RCR) | payer MEDICARE, SELFPAY | END 2025-02-27 23:59 | disposition home or self-care (01) | LOC: PT 11:00 | PROVIDERS: PCP Family Medicine; Visit Provider Nurse Practitioner Family | DX: S22.000A Wedge compression fracture of unspecified thoracic vertebra, initial encounter for closed fracture (principal); C90.00 Multiple myeloma not having achieved remission; R29.898 Other symptoms and signs involving the musculoskeletal system | CPT/HCPCS: 97110; 97530 ==

== ENCOUNTER 2025-03-21 14:51 | Outpatient (RCR) | payer MEDICARE, SELFPAY | END 2025-03-21 23:59 | disposition home or self-care (01) | LOC: PT 14:51 | PROVIDERS: PCP Family Medicine; Visit Provider Nurse Practitioner Family | DX: S22.000A Wedge compression fracture of unspecified thoracic vertebra, initial encounter for closed fracture (principal); C90.00 Multiple myeloma not having achieved remission; R29.898 Other symptoms and signs involving the musculoskeletal system | CPT/HCPCS: 97110; 97530 ==

== ENCOUNTER 2025-04-19 11:47 | Outpatient (CLI) | payer MEDICARE, SELFPAY ==
[2025-04-19 11:53] VITALS: BMI 36.1
[2025-04-19] MEDS: 0.9 % SODIUM CHLORIDE 100 ML IV (12:22)
[2025-04-19 12:29] LABS: Alanine Aminotransferase 31 U/L (12-78); Albumin Level 4.1 g/dl (3.5-5.0); Albumin/Globulin Ratio 1.9 (1.1-1.8); Alkaline Phosphatase 109 U/L (38-126); Anion Gap 13.9 mEq/L (5-15); Aspartate Amino Transferase 34 U/L (17-59); Bilirubin,Total 1.1 mg/dl (0.2-1.3); Blood Urea Nitrogen 18 mg/dl (9-20); Calcium 10.0 mg/dl (8.4-10.2); Carbon Dioxide 25 mmol/L (22.0-30.0); Chloride 106 mmol/L (98-107); Creatinine Clearance Estimated 98 mL/min (50-200); Creatinine,Serum 1.10 mg/dl (0.66-1.25); Estimated Glomerular Filt Rate 67 ml/min (>60); GFR (African American) 81 ML/MIN (>60); Globulin 2.2 g/dL (1.3-3.2); Glucose 91 mg/dl (74-100); Potassium 3.9 mmoL/L (3.5-5.1); Sodium 141 mmol/L (136-145); Total Protein,Serum 6.3 g/dl (6.3-8.2)
[2025-04-19 12:30] VITALS: BP 147/74; PULSE 92; RESP 17
[2025-04-19] MEDS: ZOLEDRONIC ACID 4 MG in 0.9 % SODIUM CHLORIDE 100 ML 420 MG IV (12:30)
[2025-04-19 12:45] VITALS: BP 140/74; PULSE 88; RESP 16
[2025-04-19 12:53] LABS: Hematocrit 35.8 % (42.0-52.0); Hemoglobin 11.6 g/dL (14.1-18.0); Immature Granulocytes % 0.2 %; Mean Corpuscular HGB Conc 32.4 g/dL (31.8-35.4); Mean Corpuscular Hemoglobin 28.6 pg (27.0-31.2); Mean Corpuscular Volume 88.2 fl (80-94); Nucleated Red Blood Cells % 0 %; Platelet Count 190 K/mm3 (142-424); Red Blood Count 4.06 M/mm3 (4.60-6.20); Red Cell Distribution Width-SD 57.1 fL; White Blood Count 9.1 K/mm3 (4.8-10.8)
[2025-04-19] MEDS: DEXAMETHASONE 4MG TABLET 20 MG PO (13:07)
[2025-04-19] MEDS: ACETAMINOPHEN 325MG TAB 650 MG PO (13:08)
[2025-04-19] MEDS: HYALURONIDASE SUBCUT (14:07)
[2025-04-19] MEDS: DARATUMUMAB SUBCUT (14:07)
[2025-04-19 14:10] VITALS: BP 138/72; PULSE 90; RESP 16
== END 2025-04-19 23:59 | disposition home or self-care (01) ==
LOC: INF 11:48
PROVIDERS: PCP Family Medicine; Visit Provider Internal Medicine Medical Oncology
DX: C90.00 Multiple myeloma not having achieved remission (principal)
CPT/HCPCS: 80053; 85025; 96374; 96401; J3489; J8540; J9144

== ENCOUNTER 2025-05-02 14:00 | Outpatient (RCR) | payer MEDICARE, SELFPAY | END 2025-05-02 23:59 | disposition home or self-care (01) | LOC: PT 14:00 | PROVIDERS: PCP Family Medicine; Visit Provider Nurse Practitioner Family | DX: S22.000A Wedge compression fracture of unspecified thoracic vertebra, initial encounter for closed fracture (principal); C90.00 Multiple myeloma not having achieved remission; R29.898 Other symptoms and signs involving the musculoskeletal system | CPT/HCPCS: 97110 ==

== ENCOUNTER 2025-05-03 09:52 | Outpatient (CLI) | payer MEDICARE, SELFPAY ==
--- OUTSIDE RECORDS SUMMARY | 2025-03-08 14:00 | XMS_ITS | Encounter Summary ---
Author Organization [facility] [place] Address [address] [id number] Care Team Providers Care Data Governance Analyst Name Role Phone Parrish Thurman MD Primary Care Provider + [phone] Reason for Visit * Episode Based Medications (Routine) - Authorized Specialty Diagnoses / Procedures Referred By Halle banuelos Referred To Contact Diagnoses Multiple myeloma not having achieved remission (CMS/HCC) Procedures DRd: Daratumumab / Lenalidomide / Dexamethasone INDUCTION (Possible Velcade) Mohit Villarreal MD [address] [facility] [address] [place] [address] Phone: tel: fax: Mohit Villarreal MD [address] [address] Phone: tel: fax: Referral ID Status Reason Start Date Expiration Date V isits Requested Visits Authorized [id number] Authorized 11/27/2024 05/29/2026 1 16 Encounter Details Date Type Department Care Team (Latest Contact Info) Description 03/08/2025 2:00 PM EDT - 03/08/2025 11:59 PM EDT Hospital Encounter [facility] [address] [place] [id number] Multiple myeloma, remission status unspecified (CMS/HCC) (Primary Dx) Discharge Disposition: Home or Self Care Social History Tobacco Use Types Packs/Day Years Used Date Smoking Tobacco: Former Passive Smoke Exposure: Past Smokeless Tobacco: Current Chew Tobacco Cessation:Ready to Q uit: Not Asked; Counseling Given: Not Answered Comments:Quit smoking 1990s; 15 pkyrs Alcohol Use Standard Drinks/Week Comments Never 0 (1 standard drink = 0.6 oz pure alcohol) Quit 07/2024; 40+ years ago history of daily use Humiliation, Afraid, Rape, and Kick questionnair e Answer Date Recorded Within the last year, have y ou been afraid of your partner or ex-partner? No 09/14/2024 Within the last year, have y ou been humiliated or emotionally abused in other ways by your partner or ex-partner? No Within the last year, have y ou been kicked, hit, slapped, or otherwise physically hurt by your partner or ex-partner? No 09/14/2024 Within the last year, have y ou been raped or forced to have any kind of sexual activity by your partner or ex-partner? No 09/14/2024 PHQ-2 Answer Date Recorded Patient Health Questionnaire-2 Score 0 12/14/2024 Hunger Vital Sign Answer Date Recorded Within the past 12 months, y ou worried that your food would run out before you got the money to buy more. Never true 09/15/19 25 Within the past 12 months, t he food you bought just didn't last and you didn't have money to get more. Never true 09/14/2024 PRAPARE - Transportation Answer Date Re corded In the past 12 months, has l ack of transportation kept you from medical appointments or from getting medications? No 12/2024 In the past 12 months, has l ack of transportation kept you from meetings, work, or from getting things needed for daily living? No 09/14/2024 Housing Stability Vital Sign Answer Luisito e Recorded In the last 12 months, was t here a time when you were not able to pay the mortgage or rent on time? No 09/14/2024 In the past 12 months, how m any times have you moved where you were living? 1 09/14/2024 At any time in the past 12 m [facility], were you homeless or living in a retirement (including now)? No 09/14/2024 CAGE ASSESSMENT Answer Date Recorded Cage unable to access Not on file 10/26/2024 Cage max number of drinks Not on file 2024 Cage Beverages a week Not on file 10/26/2024 Have you ever felt you should CUT down on your d rinking? 0 10/26/2024 Have you been ANNOYED by people criticizing your drinking? 0 10/26/2024 Have you felt GUILTY about your drinking? 0 10/26/2024 Have you had a drink first t kiet in the morning (EYE-SUPERVISOR BRINE) to steady your nerves or to get rid of a hangover? 0 10/26/2024 CAGE Questionnaire Score 0 025 Utilities Answer Date Recorded In the past 12 months has th [employer], gas, oil, or water [employer] threatened to shut off services in your home? 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 file Not on file Not on file documented as of this encounter Last Filed Vital Signs Vital Sign Reading Time Taken Comments Blood Pressure 138/73 03/08/2025 2:01 PM EDT Pulse 81 03/08/2025 2:01 PM EDT Temperature 36.7 C (98 F) 03/08/2025 2:01 PM EDT Respiratory Rate 17 03/08/2025 2:01 PM EDT Oxygen Saturation 96% 03/08/2025 2:01 PM EDT Inhaled Oxygen Concentration - - Weight 108 kg (238 lb 5.1 oz) 03/08/2025 2:01 PM EDT Height 172.7 cm (5' 8 ) 03/08/2025 2:01 PM EDT Body Mass Index 36.24 03/08/2025 2:01 PM EDT documented in this encounter Medications at Time of Discharge acetaminophen (Tylenol) 500 MG tablet Take 2 tablets by mouth every 6 hours as needed for pain. 100 tablet 10/28/2024 Calcium Carbonate-Vitamin D (calcium-vitamin D) 500-200 MG-UNIT tabletIndications:Hy pocalcemia Take 1 tablet by mouth daily. 30 tablet 11 01/25/2025 Fluticasone-Umeclidi n-Vilant (Trelegy Ellipta) 100-62.5-25 MCG/ACT aerosol powder Inhale 1 puff in the morning. irbesartan-hydroCHLO ROthiazide (Avalide) 150-12.5 MG tablet Take 1 tablet by mouth daily. 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 Give 1 spray in nostril for no/slow breathing or cannot wake after opioid use 2. Call 911 3. Repeat in other nostril if symptoms continue 1 each 12/29/2024 oxyCODONE (Roxicodone) 5 MG immediate release tablet Take 1 tablet by mouth every 6 hours as needed for moderate pain or severe pain. 30 tablet 11/06/2024 polyethylene glycol (MiraLax) 17 g packet Take 17 g by mouth daily as needed (constipation) . 30 each 12/08/2024 prochlorperazine (Compazine) 10 MG tabletIndications:Mu ltiple myeloma not having achieved remission (CMS/HCC) Take 1 tablet by mouth every 6 hours as needed for nausea or vomiting. 30 tablet 3 11/30/2024 senna-docusate sodium (Senokot-S) 8.6-50 MG tablet Take 1 tablet by mouth 2 (two) times a day. 28 tablet 10/28/2024 traMADol (Ultram) 50 MG tablet TAKE 1 TABLET BY MOUTH EVERY 8 HOURS NEEDED FOR SEVERE PAIN 60 tablet 03/01/2025 acyclovir (Zovirax) 400 MG tabletIndications:Mu ltiple myeloma not having achieved remission (CMS/HCC) Take 2 tablets by mouth 2 times a day. 120 tablet 3 11/30/2024 lenalidomide (Revlimid) 15 MG capsuleIndications:M ultiple myeloma not having achieved remission (CMS/HCC) Take 1 capsule by mouth daily. Take for 14 days, then off 14 days. 28 day cycle. Take whole with water. Do not break, chew, or open. 14 capsule 02/28/2025 5 potassium chloride CR (Klor-Con M20) 20 MEQ ER tablet Take 1 tablet by mouth 2 times a day. Do not crush or chew. 60 tablet 1 12/08/2024 documented as of this encounter Plan of Treatment Upcoming Encounters Date Type Department Care Team (Late st Contact Info) Description 05/28/2025 1:00 PM EST Office Visit Medical Office Building [facility] [address], [address] [place] [address] Afshan Bryan MD [address] [place] [address] documented as of this encounter Goals Goal Patient Goal Type Associated Problems Recent Progress Patient-Stated? Author Autogenerat ed Goal Care Plan Autogenerated Problem No Rajiv Garcias MD documented as of this encounter Procedures Procedure Name Priority Date/Time Associated Diagnosis Comments CBC WITH AUTO DIFFERENTIAL Routine 03/08/2025 2:08 PM EDT Multiple myeloma, remission status unspecified ([facility]) documented in this encounter Results * (ABNORMAL) CBC and differential (03/08/2025 2:08 PM EDT) WBC Count 5.27 3.70 - 10.30 10*3/uL LAB HEMATOLOGY METHOD 03/08/2025 2:31 PM EDT [facility] RBC Count 3.65(L) 4.60 - 6.10 10*6/uL LAB HEMATOLOGY METHOD 03/08/2025 2:31 PM EDT [facility] HGB 10.4(L) 13.7 - 17.5 g/dL LAB HEMATOLOGY METHOD 03/08/2025 2:31 PM EDT [facility] HCT 32.9(L) 40.0 - 51.0 % LAB HEMATOLOGY METHOD 03/08/2025 2:31 PM EDT [facility] Platelet Count 184 155 - 369 10*3/uL LAB HEMATOLOGY METHOD 03/08/2025 2:31 PM EDT [facility] MCV 90 79 - 98 fL LAB HEMATOLOGY METHOD 03/08/2025 2:31 PM EDT [facility] MCH 28.5 26.0 - 32.0 pg LAB HEMATOLOGY METHOD 03/08/2025 2:31 PM EDT [facility] MCHC 31.6 30.7 - 35.5 g/dL LAB HEMATOLOGY METHOD 03/08/2025 2:31 PM EDT [facility] RDW 18.2(H) 11.5 - 14.5 % LAB HEMATOLOGY METHOD 03/08/2025 2:31 PM EDT [facility] MPV 10.4 8.8 - 12.5 fL LAB HEMATOLOGY METHOD 03/08/2025 2:31 PM EDT [facility] nRBC 0.0 <=0.0 per 100 WBCs LAB HEMATOLOGY METHOD 03/08/2025 2:31 PM EDT [facility] Differential Type Automated LAB HEMATOLOGY METHOD 03/08/2025 2:31 PM EDT [facility] Neutrophils % 37 % LAB HEMATOLOGY METHOD 03/08/2025 2:31 PM EDT [facility] Lymphocytes % 27 % LAB HEMATOLOGY METHOD 03/08/2025 2:31 PM EDT [facility] Monocytes % 28 % LAB HEMATOLOGY METHOD 03/08/2025 2:31 PM EDT [facility] Eosinophils % 7 % LAB HEMATOLOGY METHOD 03/08/2025 2:31 PM EDT [facility] Basophils % 1 % LAB HEMATOLOGY METHOD 03/08/2025 2:31 PM EDT [facility] Immature Granulocytes % 0 % LAB HEMATOLOGY METHOD 03/08/2025 2:31 PM EDT [facility] Neutrophils Absolute 1.97 1.60 - 6.10 10*3/uL LAB HEMATOLOGY METHOD 03/08/2025 2:31 PM EDT [facility] Lymphocytes Absolute 1.41 1.20 - 3.90 10*3/uL LAB HEMATOLOGY METHOD 03/08/2025 2:31 PM EDT [facility] Monocytes Absolute 1.49(H) 0.30 - 0.90 10*3/uL LAB HEMATOLOGY METHOD 03/08/2025 2:31 PM EDT [facility] Eosinophils Absolute 0.36 0.00 - 0.50 10*3/uL LAB HEMATOLOGY METHOD 03/08/2025 2:31 PM EDT [facility] Basophils Absolute 0.04 0.00 - 0.10 10*3/uL LAB HEMATOLOGY METHOD 03/08/2025 2:31 PM EDT [facility] Immature Granulocytes Absolute 0.00 0.00 - 0.06 10*3/uL LAB HEMATOLOGY METHOD 03/08/2025 2:31 PM EDT [facility] Blood Venous blood specimen / Unknown Venipuncture / Unknown 03/08/2025 2:08 PM EDT 03/08/2025 2:11 PM EDT Narrative [facility] - 03/08/2025 2:31 PM EDT Therapeutic decision making should be based on absolute values, rather than percentages. us Mohit Villarreal MD LAB BLOOD ORDERABLES Final Result [facility] [address] [place] [address] documented in this encounter Visit Diagnoses Diagnosis Multiple myeloma, remission status unspecified (CMS/HCC)- Primary documented in this encounter Administered Medications Inactive Administered Medications - up to 3 most recent administrations Medication Order MAR Action Action Date Dose Rate Site acetaminophen (Tylenol) tablet 650 mg 650 mg, Oral, Once, 1 dose, On Alice 03/08/25 at 1445, RoutineIndications:Mul tiple myeloma, remission status unspecified (CMS/HCC) Given 03/08/2025 2:30 PM EDT 650 mg daratumumab-hyaluronid ase-fihj (Darzalex Faspro) chemo injection 1,800 mg 1,800 mg, Subcutaneous, Administer over 5 Minutes, Once, Inject 15 mL into subcutaneous tissue of abdomen over 3-5 minutes, On Alice 03/08/25 at 1545, For 1 doseIndications:Multip le myeloma, remission status unspecified (CMS/HCC) New Syringe/Cartridg e 03/08/2025 3:44 PM EDT 1,800 mg Right Lower Abdomen dexamethasone (Decadron) tablet 20 mg 20 mg, Oral, Once, 1 dose, On Alice 03/08/25 at 1445, RoutineIndications:Mul tiple myeloma, remission status unspecified (CMS/HCC) Given 03/08/2025 2:30 PM EDT 20 mg diphenhydrAMINE (Benadryl) tablet 50 mg 50 mg, Oral, Once, 1 dose, On Alice 03/08/25 at 1445, RoutineIndications:Mul tiple myeloma, remission status unspecified (CMS/HCC) Given 03/08/2025 2:30 PM EDT 50 mg documented in this encounter Additional Health Concerns Active Problems Noted Date Diagnosed Date Autogenerated Problem 10/19/2024 Assessment Noted Time A fall risk assessment has been complete d for the patient 03/08/2025 2:05 PM EDT A Body Mass Index follow-up plan has been documented for the patient 03/08/2025 3:50 PM EDT documented as of this encounter Care Teams Data Governance Analyst Relationship Specialty Start Date End Date Parrish Thurman MD [address] [place] [address] PCP - General 10/19/24 documented as of this encounter
--- OUTSIDE RECORDS SUMMARY | 2025-03-22 08:30 | XMS_ITS | Encounter Summary ---
Author Organization Healthcare Address [address] [place] [address] Care Team Providers Care Channel Marketing Program Manager Name Role Phone Parrish Thurman MD Primary Care Provider + [phone] Reason for Visit * Reason Comments Labs Only Encounter Details Date Type Department Care Team ([facility] st Contact Info) Description 03/22/2025 8:30 AM EDT Clinical Support [facility] Cellular Therapy Program [address] [place] [address] [place] [address] Ginger Menjivar RN [facility] Social History Tobacco Use Types Packs/Day Years Used Date Smoking Tobacco: Former Passive Smoke Exposure: Past Smokeless Tobacco: Current Chew Comments:Quit smoking 1990s; 15 pkyrs Alcohol Use [...] any time in the past 12 m [facility], were you homeless or living in a alf (including now)? 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 0 10/26/2024 CAGE Questionnaire Score 0 025 Utilities Answer Date Recorded In the past 12 months has th e electric, gas, oil, or water company threatened to shut off services in your home? 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 file Not on file Not on file documented as of this encounter Plan of Treatment Upcoming Encounters Date Type Department Care Team (Late st Contact Info) Description 05/28/2025 1:00 PM EST Office Visit Medical Office Building [facility] [address] [facility], [address] [place] [address] Afshan Bryan MD [address] [place] [address] documented as of this encounter Goals Goal Patient Goal Type Associated Problems Recent Progress Patient-Stated? Author Autogenerat ed Goal Care Plan Autogenerated Problem No Rajiv Garcias MD documented as of this encounter Visit Diagnoses Not on filedocumented in this encounter Additional Health Concerns Active Problems Noted Date Diagnosed Date Autogenerated Problem 10/19/2024 Assessment Noted Time A fall risk assessment has been complete d for the patient 03/22/2025 10:32 AM EDT A Body Mass Index follow-up plan has been documented for the patient 03/22/2025 12:01 PM EDT documented as of this encounter Care Teams Channel Marketing Program Manager Relationship Specialty Start Date End Date Parrish Thurman MD [address] [facility] [address] [place] [address] PCP - General 10/19/24 documented as of this encounter
--- OUTSIDE RECORDS SUMMARY | 2025-03-22 09:00 | XMS_ITS | Encounter Summary ---
Author Organization [facility] Address [address] [id number] Care Team Providers Care Qc Chemist Name Role Phone Parrish Thurman MD Primary Care Provider + [phone] Reason for Visit * Reason Comments Multiple Myeloma Encounter Details Date Type Department Care Team ([facility] Contact Info) Description 03/22/2025 9:00 AM EDT Office Visit [facility] Hematology/BMT and Cellular Therapy Program [address] [phone] Mohit Villarreal MD [address] [facility] [address] [place] [address] Multiple myeloma, remission status unspecified (CMS/HCC) (Primary Dx); Multiple myeloma not having achieved remission (CMS/HCC); Age-related osteoporosis without current pathological fracture Social History Tobacco Use Types Packs/Day Years [...] any time in the past 12 m [facility], were you homeless or living in a [...] drink first t kiet in the morning (EYE-TREE PULLER) to steady your nerves or to get [...] Start Date Job End Date 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 file Not on file Not on file documented as of this encounter Last Filed Vital Signs Vital Sign Reading Time Taken Comments Blood Pressure 137/75 03/22/2025 9:25 AM EDT Pulse 86 03/22/2025 9:25 AM EDT Temperature 36.8 C (98.3 F) 03/22/2025 9:25 AM EDT Respiratory Rate 18 03/22/2025 9:25 AM EDT Oxygen Saturation 97% 03/22/2025 9:25 AM EDT Inhaled Oxygen Concentration - - Weight 110 kg (241 lb 6.5 oz) 03/22/2025 9:25 AM EDT Height 172.7 cm (5' 7.99 ) 03/22/2025 9:25 AM ED T Body Mass Index 36.71 03/22/2025 9:25 AM EDT documented in this encounter Miscellaneous Notes * Progress Notes - Mohit Villarreal MD - 03/22/2025 9:00 AM EDT HEMATOLOGY ONCOLOGY NOTE Patient ID: Harjit Brown is a 69 y.o. male. Referring Physician: No referring provider defined for this encounter. Primary Care Provider: Parrish Thurman MD Chief Complaint: RISS/ISS stage III IgG [place] Multiple Myeloma Treatment Plan: DRd: Daratumumab / Lenalidomide / Dexamethasone INDUCTION Subjective History of Present Illness: Harjit Brown presents on 03/22/25 for routine follow up. They are accompanied to clinic with their . No fevers or si/ infection. Has significant back pain. Below right shoulder blade. 8 of 10 in intensity. Tramadol doesn't work. Hurts to take a deep breath. Uses APAP and IBFN. Interestingly, steroids with therapy do not help. Appetite increased. Ambulates with cane or walker Tolerating treatment. Had a tooth extracted 02/2025 Review of Systems Constitutional: Negative for appetite change, fatigue, fever and unexpected weight change. HENT: Negative for mouth sores, nosebleeds and sore throat. Respiratory: Negative for cough, hemoptysis and shortness of breath. Right mid back hurts with deep breath. Cardiovascular: Negative for chest pain, leg swelling and palpitations. Gastrointestinal: Negative for blood in stool, constipation, diarrhea, nausea and vomiting. Genitourinary: Positive for nocturia (2-3 / night chronically). Negative for dysuria, frequency andhematuria. Musculoskeletal: Positive for back pain and gait problem (walker for ambulating). Neurological: Positive for gait problem (walker for ambulating) and numbness (RLE occasionaly). Negative for extremity weakness and headaches. Hematological: Does not bruise/bleed easily. Current Medications[1] History: Oncology History Overview Note ID: RISS/ISS stage III IgG [place] Multiple Myeloma Hematologic History: In May 31, 2023 Harjit Brown sustained a T7 burst fracture, ultimately underwent kyphoplasty which subsequently resulted in collapse with cement within the spinal canal and compression of the spinal cord. Harjit Brown presented to the [facility] Emergency Department 09/14/2024. He underwent T5-T9 posterior spinal instrumentation and arthrodesis; T7 laminectomy with bilateral facetectomy and left transpedicular approach for ventral decompression T6 hemilaminectomy. 09/14/2024: MRI cervical, thoracic, lumbar spine: IMPRESSION: -Redemonstration of subacute T7 burst fracture with near complete vertebral body height loss and retropulsion of the posterior fragment. Postsurgical changes in the vertebral body consistent with kyphoplasty. Retropulsion results in moderate to severe spinal canal narrowing as well as moderate severe narrowing of the T7-T8 and T6-T7 neural foramina. Subtle irregularity of the posterior longitudinal ligament is noted at this level could represent a component of ligamentous injury. There is edemaand enhancement extending into the epidural space and the prevertebral tissues likely inflammation secondary to subacute fractures, however correlate clinically to exclude other etiologies such as inf ection. -Edema-like marrow signal change in the left seventh rib at the costovertebral junction and the right 10th rib costovertebral junction likely representing subacute fractures. -Epidural lipomatosis noted throughout the thoracic and lumbar spine. -Degenerative changes throughout the spine most notable in the lumbar spine at L3-L4 with mild/moderate spinal canal narrowing and at L4-L5 with axwptzci-tp-bfkxex right and moderate left neural foraminal narrowing. For detailed level by level description please see above. Two weeks later he had worsening back pain and bilateral rib pain. Imaging demonstrated collapse ofT9 vertebral body. 10/25/2024 was admitted to the hospital and underwent Revision T5-T9 posterior spinal instrumentation arthrodesis with extension down to T11. During hospitalization, patient demonstrated acute kidneyinjury with non-anion gap metabolic acidosis. He was also noted to be hypercalcemic. Ionized calcium 6.0. 10/27/2024: SPEP: indicates mild hypogammaglobulinemia. SIFE: low-intensity IgG kappa monoclonal protein Ig IgA: 46 IgM:12 Serum free kappa light chain 2758.1 Serum free lambda light chain 11.2 Serum free light chain ratio: 246.3 UPEP A prominent band restriction is present in gamma, comprising 74% of the total protein excretion, or 847 mg/day out of 1144 mg/day Bence Sharif M PROTEIN PRESENT: [place] monoclonal free light chain protein identified by immunofixation electrophoresis in this urine specimen. Harjit Brown was seen in bone mineralization-nephrology clinic 11/08/2024 due to concerns regardingdiagnosis of multiple myeloma, referred to [facility] hematology program ambulatory clinic 11/13/2024. 11/13/24: Beta-2 Microglobulin: 7.7 mg/L Albumin: 3.6 Total Calcium: 11.2 LDH: 253 (elevated) 11/20/2024: PET /CT scan (OSH) IMPRESSION: 1] No focal osseous uptake to the axial or appendicular skeleton. 2] Splenomegaly with uptake similr ro liver. Please note that visceral uptake is markedly heterogeneous, suspected to underlying cirrhosis with ascites. These findings are indeterminate, may represent reactive uptake to underlying portal hypertension and cirrhosis. 3] Mildly avid left axillary lymph nodes, uptake below mediastinal blood pool. 11/23/2024: Bone Marrow biopsy: Final Diagnosis PERIPHERAL BLOOD AND BONE MARROW, LEFT POSTERIOR ILIAC CREST (ASPIRATE SMEAR AND CORE BIOPSY): - PLASMA CELL NEOPLASM (70% KAPPA RESTRICTED PLASMA CELLS IN HYPERCELLULAR BONE MARROW). - IRON STORES ARE MARKEDLY DECREASED. - Karyotype: 46,XY[20] - Cytogenetic FISH: Abnormal Multiple Myeloma FISH panel analysis. 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 Monosomy 13 in 87.0% of interphase cells examined. - ClonoSEQ: 3 dominant sequences identified suitable for MRD determination. 11/23/2024: Dosed with Zometa. Diagnosed with ISS stage III IgG kappa multiple myeloma. Initiated on treatment with daratumumab, Revlimid, dexamethasone therapy. C1D1: 11/30/24 C2D1: 12/29/24 C3D1: 01/25/25 C4D1: 02/22/25 C5D1: 03/22/25 11/13/2024 12/29/2024 01/25/2025 02/22/2025 [place]/Lambda LC Ratio 352.51 (H) 60.50 30.21 36.35 [place] Free Light Chains 4529.76 606.82 313.86 377.65 Lambda Free Light Chains 12.43 10.03 10.39 10.39 M-Gui FAINT (+) ANGEL (+) 0.0 0.0 Multiple myeloma 11/08/2024 Initial Diagnosis Multiple myeloma not having achieved remission (CMS/HCC) 11/30/2024 - Chemotherapy kfsuatfxgjp-wolcvsmlyokvy-gpar (Darzalex Faspro) chemo injection 1,800 mg, 1,800 mg, Subcutaneous, Once, 5 of 7 cycles Administration: 1,800 mg (11/30/2024), 1,800 mg (12/08/2024), 1,800 mg (12/29/2024), 1,800 mg (01/05/2025), 1,800 mg (01/25/2025), 1,800 mg (02/08/2025), 1,800 mg (12/14/2024), 1,800 mg (12/21/2024), 1,800 mg(01/13/2025), 1,800 mg (01/19/2025), 1,800 mg (02/22/2025), 1,800 mg (03/08/2025) Past Medical History[2] Surgical History[3] Family History[4] Social History[5] Objective Physical Exam: Vital Signs for this encounter: BSA: 2.3 meters squared Visit Vitals BP 137/75 (BP Location: Right arm, Patient Position: Sitting, BP Cuff Size: Adult) Pulse 86 Temp 36.8 ??C (98.3 ??F) (Temporal) Resp 18 Ht 1.727 m (5' 7.99 ) Wt 110 kg (241 lb 6.5 oz) SpO2 97% BMI 36.71 kg/m?? Smoking Status Former BSA 2.3 m?? Physical Exam Vitals reviewed. Constitutional: General: He is not in acute distress. Appearance: Normal appearance. He is ill-appearing (chronically). HENT: Head: Normocephalic and atraumatic. Nose: Nose normal. Mouth/Throat: Mouth: Mucous membranes are moist. Pharynx: Oropharynx is clear. Eyes: Extraocular Movements: Extraocular movements intact. Conjunctiva/sclera: Conjunctivae normal. Pupils: Pupils are equal, round, and reactive to light. Cardiovascular: Rate and Rhythm: Normal rate and regular rhythm. Heart sounds: Murmur heard. Pulmonary: Effort: Pulmonary effort is normal. No respiratory distress. Breath sounds: Normal breath sounds. No wheezing or rhonchi. Abdominal: General: Bowel sounds are normal. Palpations: Abdomen is soft. Tenderness: There is no abdominal tenderness. Musculoskeletal: General: Tenderness (mid back with radiation to right flank / shoulder) present. No swelling. Normal range of motion. Right lower leg: No edema. Left lower leg: No edema. Neurological: General: No focal deficit present. Mental Status: He is alert and oriented to person, place, and time. Sensory: Sensory deficit present. Motor: No weakness. Gait: Gait abnormal. Psychiatric: Mood and Affect: Mood normal. Behavior: Behavior normal. Performance Status: Symptomatic; fully ambulatory 70, Cares for self; unable to carry on normal activity or to do active work (ECOG equivalent 1) Pain Scale: 8 Office Visit on 03/22/2025 Component Date Value Ref Range Status WBC Count 03/22/2025 10.03 3.70 - 10.30 10*3/uL Final RBC Count 03/22/2025 3.83 (L) 4.60 - 6.10 10*6/uL Final HGB 03/22/2025 10.6 (L) 13.7 - 17.5 g/dL Final HCT 03/22/2025 34.1 (L) 40.0 - 51.0 % Final Platelet Count 03/22/2025 135 (L) 155 - 369 10*3/uL Final MCV 03/22/2025 89 79 - 98 fL Final MCH 03/22/2025 27.7 26.0 - 32.0 pg Final MCHC 03/22/2025 31.1 30.7 - 35.5 g/dL Final RDW 03/22/2025 17.8 (H) 11.5 - 14.5 % Final MPV 03/22/2025 Final Not measured nRBC 03/22/2025 0.0 <=0.0 per 100 WBCs Final Differential Type 03/22/2025 Automated Final Neutrophils % 03/22/2025 70 % Final Lymphocytes % 03/22/2025 14 % Final Monocytes % 03/22/2025 9 % Final Eosinophils % 03/22/2025 5 % Final Basophils % 03/22/2025 1 % Final Immature Granulocytes % 03/22/2025 1 % Final Neutrophils Absolute 03/22/2025 7.20 (H) 1.60 - 6.10 10*3/uL Final Lymphocytes Absolute 03/22/2025 1.37 1.20 - 3.90 10*3/uL Final Monocytes Absolute 03/22/2025 0.89 0.30 - 0.90 10*3/uL Final Eosinophils Absolute 03/22/2025 0.47 0.00 - 0.50 10*3/uL Final Basophils Absolute 03/22/2025 0.05 0.00 - 0.10 10*3/uL Final Immature Granulocytes Absolute 03/22/2025 0.05 0.00 - 0.06 10*3/uL Final Glucose, Plasma 03/22/2025 112 (H) 74 - 99 mg/dL Final BUN, Plasma 03/22/2025 14 8 - 23 mg/dL Final Creatinine, Plasma 03/22/2025 1.01 0.70 - 1.20 mg/dL Final BUN/Creatinine Ratio 03/22/2025 14 Final Sodium, Plasma 03/22/2025 143 136 - 145 mmol/L Final Potassium, Plasma 03/22/2025 3.7 3.6 - 4.9 mmol/L Final Chloride, Plasma 03/22/2025 108 (H) 97 - 107 mmol/L Final CO2, Plasma 03/22/2025 20 (L) 22 - 29 mmol/L Final Anion Gap 03/22/2025 15 6 - 16 mmol/L Final Total Calcium, Plasma 03/22/2025 9.2 8.9 - 10.2 mg/dL Final Total Protein 03/22/2025 6.2 (L) 6.3 - 7.9 g/dL Final Albumin, Plasma 03/22/2025 3.9 3.5 - 5.2 g/dL Final AST, Plasma 03/22/2025 25 10 - 50 U/L Final ALT, Plasma 03/22/2025 19 10 - 50 U/L Final Alkaline Phosphatase, Plasma 03/22/2025 90 40 - 115 U/L Final Total Bilirubin, Plasma 03/22/2025 0.7 0.2 - 1.1 mg/dL Final eGFRcr 03/22/2025 81.0 mL/min/1.73m*2 Final Reported eGFRcr in mL/min/1.73m2 is based the CKD-EPI 2020 equation that does not use a race coefficient. IGA 03/22/2025 43 (L) 75 - 400 mg/dL Final IGG 03/22/2025 508 (L) 720 - 1,589 mg/dL Final IGM 03/22/2025 14 (L) 35 - 225 mg/dL Final Total Protein 03/22/2025 5.8 (L) 6.2 - 7.7 g/dL Final ] Lab Results Component Value Date/Time PATHINTERP 02/22/2025 10:20 AM The protein electrophoretic pattern indicates a possible small, non-integrated irregularity in the mid gamma region on a background of moderate hypogammaglobulinemia. This may suggests immune deficiency or suppression consistent with treatment, however we cannot rule out a monoclonal protein migrating in low concentrations. SIFE may be helpful if clinically indicated. A resident was involved in the service. I attest I examined the relevant preparations for the specimens and confirmed the diagnosis or interpretation. PATHINTERP 02/22/2025 10:20 AM There are no qualitative abnormalities present in the IgG, IgA, IgM, kappa or lambda light chains as observed by immunofixation electrophoresis. Based upon immunochemical quantitation, the concentrations of IgG, IgA, and IgM are all depressed. A resident was involved in the service. I attest I examined the relevant preparations for the specimens and confirmed the diagnosis or interpretation. PATHINTERP 10/28/2024 08:57 AM M PROTEIN PRESENT: [place] monoclonal free light chain protein identified by immunofixation electrophoresis in this urine specimen. Lab Results Component Value Date/Time KAPPA 377.65 (H) 02/22/2025 10:20 AM KAPPA 313.86 (H) 01/25/2025 10:11 AM KAPPA 606.82 (H) 12/29/2024 09:05 AM KAPPA >1,270.00 (H) 11/13/2024 02:16 PM KAPPA 4529.76 (H) 11/13/2024 02:16 PM Lab Results Component Value Date/Time LAMBDA 10.39 02/22/2025 10:20 AM LAMBDA 10.39 01/25/2025 10:11 AM LAMBDA 10.03 12/29/2024 09:05 AM LAMBDA 12.43 11/13/2024 02:16 PM LAMBDA 12.85 11/13/2024 02:16 PM Lab Results Component Value Date/Time KAPPALAMBDA 36.35 (H) 02/22/2025 10:20 AM KAPPALAMBDA 30.21 (H) 01/25/2025 10:11 AM KAPPALAMBDA 60.50 (H) 12/29/2024 09:05 AM KAPPALAMBDA 11/13/2024 02:16 PM Comment: Unable to Calculate due to one or both values being less than or greater than the clinical reportable range. KAPPALAMBDA 352.51 (H) 11/13/2024 02:16 PM Lab Results Component Value Date/Time IGA 43 (L) 03/22/2025 09:18 AM IGA 51 (L) 02/22/2025 10:20 AM IGA 39 (L) 01/25/2025 10:11 AM IGA 46 (L) 12/29/2024 09:05 AM IGA 46 (L) 11/13/2024 02:16 PM IGA 46 (L) 10/27/2024 08:29 AM Lab Results Component Value Date/Time IGG 508 (L) 03/22/2025 09:18 AM IGG 544 (L) 02/22/2025 10:20 AM IGG 448 (L) 01/25/2025 10:11 AM IGG 625 (L) 12/29/2024 09:05 AM IGG 551 (L) 11/13/2024 02:16 PM IGG 562 (L) 10/27/2024 08:29 AM Lab Results Component Value Date/Time IGM 14 (L) 03/22/2025 09:18 AM IGM 18 (L) 02/22/2025 10:20 AM IGM 16 (L) 01/25/2025 10:11 AM IGM 17 (L) 12/29/2024 09:05 AM IGM 12 (L) 11/13/2024 02:16 PM IGM 12 (L) 10/27/2024 08:29 AM Assessment/Plan ISS stage III IgG [place] Multiple Myeloma I discussed with Harjit Brown and his again the significance of his diagnosis. I with him theresults of his bone marrow biopsy and CT PET scan imaging. The bone marrow biopsy demonstrated 70% restricted kappa myeloma cells. The PET scan did not demonstrate any osseous sign of disease outsideof his known thoracic lesion. Overall, he is confirmed to have multiple myeloma. I explained that multiple myeloma is a form of blood cancer. I previously discussed the pathophysiology behind multiple myeloma and the general expectations. Since he meets criteria for active multiple myeloma, we have initiated chemo- immunotherapy treatment with daratumumab, Revlimid, dexamethasone. He has been receiving daratumumab without difficulty. Depending on how effective it is, may add Velcade at a later date.. I again discussed combination therapy and side effects of daratumumab, Revlimid, dexamethasone, (and Velcade). He will continue with his initial therapy here, however, he would like to explore receiving systemic therapy closer to home in [place], [place] in the future. An appointment will be scheduled for follow-up in the next couple of months prior to cycle 7 for reassessment and further management of his multiple myeloma He will proceed with cycle 5 of treatment today. Will add monthly Zometa to begin with cycle 6. 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 I answered all of their questions. Infectious: COVID Bivalent (PFR 12+) (Pfizer-BioNTech COVID-19 Bivalent (Rahman Cap) 12+ years (rajiv-sucrose)) 05/14/2022 COVID-19 (MOD) 12+yrs (Moderna Covid-19 Vaccine 12y+, Gui Protein, Preservative free) 06/19/2024, 06/02/2023 COVID-19 Vector-NR (SEEMA) (Maximus COVID-19 Vaccine (Blue Cap) 18+)05/21/2021, 09/18/2020 Influenza, High Dose (Influenza, High-dose, Split Virus, Trivalent, Injectable, preservative free) 04/28/2024 RSV, recombinant subunit (Rsvpref, Recombinant, Protein Subunit, Adjuvent) 03/23/2023 acyclovir (Zovirax) 400 MG tablet, Take 2 tablets by mouth 2 times a day., Disp: 120 tablet, Rfl: 3 Metabolic/Renal: ergocalciferol (Vitamin D-2) 1.25 MG (92461 UT) capsule, Take 1 capsule by mouth 1 time per week., Disp: 4 capsule, Rfl: 2 Dental evaluation 02/2025 with subsequent extraction. Discussion of risk for osteonecrosis of the jaw. Initiate Zometa infusion monthly with cycle 6 of therapy. Calcium Carbonate-Vitamin D (calcium-vitamin D) 500-200 MG-UNIT tablet, Take 1 tablet by mouth daily. potassium chloride CR (Klor-Con M20) 20 MEQ ER tablet, Take 1 tablet by mouth 2 times a day. Pulmonary: COPD (chronic obstructive pulmonary disease) (CMS/HCC) Mwvnibnzvvb-Ncqcniqnd-Tgrjve (Trelegy Ellipta) 100-62.5-25 MCG/ACT aerosol powder , Obstructive Sleep Apnea - Diego confirmed diagnosis and does not use CPAP Gastrointestinal: GERD (gastroesophageal reflux disease) OTC Antacids PRN Chemotherapy-induced nausea and vomiting prochlorperazine (Compazine) 10 MG tablet, Take 1 tablet by mouth every 6 hours as needed for nausea or vomiting., Disp: 30 tablet, Rfl: 3 Constipation senna-docusate sodium (Senokot-S) 8.6-50 MG tablet, Take 1 tablet by mouth 2 (two) times a day. Sequela on PET scan imaging November 2024 concerning for possible liver disease and splenomegaly. - will monitor during chemo-immunotherapy for multiple myeloma and consideration for hepatology referral. Cautioned against excessive Tylenol use. Cardiac: Hypertension irbesartan-hydroCHLOROthiazide (Avalide) 150-12.5 MG tablet Musculoskeletal: Back Pain Thoracic Vertebral Body compression fracture. S/p Kyphoplasty, surgery, and revision. Joint pain acetaminophen (Tylenol) 500 MG tablet, Take 2 tablets by mouth every 6 hours as needed for pain., Disp: 100 tablet, Rfl: 0 Ibuprofen Discontinued Robaxin and Tramadol since they do not help Possible neuropathic component: Prescribed Gabapentin 300mg at bedtime Neurologic: Possible neuropathic pain component to back pain. gabapentin (Neurontin) 300 MG capsule, Take 1 capsule by mouth nightly., MD FERNANDO Baum [facility] HEMATOLOGY/BMT AND CELLULAR THERAPY PROGRAM [address] [place] [phone] [1] Current Outpatient Medications: acetaminophen (Tylenol) 500 MG tablet, Take 2 tablets by mouth every 6 hours as needed for pain., Disp: 100 tablet, Rfl: 0 acyclovir (Zovirax) 400 MG tablet, Take 2 tablets by mouth 2 times a day., Disp: 120 tablet, Rfl: 3 Calcium Carbonate-Vitamin D (calcium-vitamin D) 500-200 MG-UNIT tablet, Take 1 tablet by mouth daily., Disp: 30 tablet, Rfl: 11 Nyegharvbjm-Jfrbdlhov-Gnpdvz (Trelegy Ellipta) 100-62.5-25 MCG/ACT aerosol powder , Inhale 1 puff in the morning., Disp: , Rfl: irbesartan-hydroCHLOROthiazide (Avalide) 150-12.5 MG tablet, Take 1 tablet by mouth daily., Disp: ,Rfl: lenalidomide (Revlimid) 15 MG capsule, Take 1 capsule by mouth daily. Take for 14 days, then off 14days. 28 day cycle. Take whole with water. Do not break, chew, or open., Disp: 14 capsule, Rfl: 0 methocarbamol (Robaxin) 500 MG tablet, TAKE 1 TABLET BY MOUTH EVERY 6 HOURS NEEDED FOR MUSCLE SPASM, Disp: 60 tablet, Rfl: 0 polyethylene glycol (MiraLax) 17 g packet, Take 17 g by mouth daily as needed (constipation)., Disp: 30 each, Rfl: 0 potassium chloride CR (Klor-Con M20) 20 MEQ ER tablet, Take 1 tablet by mouth 2 times a day. Do notcrush or chew., Disp: 60 tablet, Rfl: 1 prochlorperazine (Compazine) 10 MG tablet, Take 1 tablet by mouth every 6 hours as needed for nausea or vomiting., Disp: 30 tablet, Rfl: 3 senna-docusate sodium (Senokot-S) 8.6-50 MG tablet, Take 1 tablet by mouth 2 (two) times a day., Disp: 28 tablet, Rfl: 0 traMADol (Ultram) 50 MG tablet, TAKE 1 TABLET BY MOUTH EVERY 8 HOURS NEEDED FOR SEVERE PAIN, Disp: 60 tablet, Rfl: 0 gabapentin (Neurontin) 300 MG capsule, Take 1 capsule by mouth nightly., Disp: 30 capsule, Rfl: 1 naloxone (Narcan) 4 mg/0.1 mL nasal spray, 1. Give 1 spray in nostril for no/slow breathing or cannot wake after opioid use 2. Call 911 3. Repeat in other nostril if symptoms continue, Disp: 1 each, Rfl: 0 oxyCODONE (Roxicodone) 5 MG immediate release tablet, Take 1 tablet by mouth every 6 hours as needed for moderate pain or severe pain., Disp: 30 tablet, Rfl: 0 No current facility-administered medications for this visit. Facility-Administered Medications Ordered in Other Visits: zjwwyxmlckh-ozduimoroyxwd-cbot (Darzalex Faspro) chemo injection 1,800 mg, 1,800 mg, Subcutaneous, Once, Mohit Villarreal MD [2] Past Medical History: Diagnosis Date Chronic obstructive pulmonary disease with acute lower respiratory infection 01/25/2025 COPD (chronic obstructive pulmonary disease) ([facility]) Exercise tolerance finding 2 flights without soa GERD (gastroesophageal reflux disease) Hypertension Joint pain Monoclonal gammopathy IgG [place] Multiple myeloma 10/27/2024 [place] Light Chain restricted Sleep apnea inconsistent diagnosis [3] Past Surgical History: Procedure Laterality Date BACK SURGERY 09/14/2024 T5-T9 posterior spinal instrumentation and arthrodesis; T7 laminectomy BACK SURGERY 10/25/2024 Revision T5-T9 posterior spinal instrumentation arthrodesis with extension to T11 COLONOSCOPY 2022 THORACIC DISC SURGERY 05/2024 Kyphoplasty TOTAL KNEE ARTHROPLASTY Right 2019 [4] Family History Problem Relation Name Age of Onset No Known Problems Mother 84yo Heart attack Father age 86 No Known Problems Sister Other cancer Other Diabetes Son Other (substance ab) Son No Known Problems Daughter Malig Hyperthermia Neg Hx [5] Social History Tobacco Use Smoking status: Former Passive exposure: Past Smokeless tobacco: Current Types: Chew Tobacco comments: Quit smoking 1990s; 15 pkyrs Vaping Use Vaping status: Never Used Substance Use Topics Alcohol use: Never Comment: Quit 07/2024; 40+ years ago history of daily use Drug use: Not Currently Comment: cbd gummies * Progress Notes - Elma Glover, PharmD - 03/22/2025 9:00 AM EDT Pharmacy Hematology/Oncology Treatment Note Harjit Brown is a 69 y.o. male with Cancer Staging Multiple myeloma Staging form: Plasma Cell Myeloma and Plasma Cell Disorders, AJCC 8th Edition - Clinical stage from 11/13/2024: RISS Stage III (Nylm-9-qwhsrtlfelgiv (mg/L): 7.7, Albumin (g/dL): 3.6, ISS: Stage III, High-risk cytogenetics: Present, LDH: Elevated) - Unsigned Study Patient: No Treatment Plan reviewed for DRd [x] Follow-Up Clinical Review for Cycle 5 Interval History: Patient seen by dentistry and had a tooth pulled last month. Planning to start Zometa in April with cycle 6 Today's Wt: Wt Readings from Last 1 Encounters: 03/22/25 109 kg (240 lb 4.8 oz) Dosing Wt: 108 kg Dosing Ht: 172.8 cm DosingBSA: 2.2 m2 Recent Labs: Lab Results Component Value Date WBC 10.03 03/22/2025 NEUTROABS 7.20 (H) 03/22/2025 HGB 10.6 (L) 03/22/2025 PLT 135 (L) 03/22/2025 Lab Results Component Value Date GLUCOSE 112 (H) 03/22/2025 NA 143 03/22/2025 CL 108 (H) 03/22/2025 K 3.7 03/22/2025 MG 1.9 12/14/2024 BUN 14 03/22/2025 CREATININE 1.01 03/22/2025 Lab Results Component Value Date AST 25 03/22/2025 ALT 19 03/22/2025 ALKPHOS 90 03/22/2025 BILITOT 0.7 03/22/2025 Visit Vitals BP 137/75 (BP Location: Right arm, Patient Position: Sitting, BP Cuff Size: Adult) Pulse 86 Temp 36.8 ??C (98.3 ??F) (Temporal) Resp 18 Treatment/Therapy Plan: DRd: Cycles 3-6: Daratumumab 1800 mg (flat dose) subcutaneous on Days 1, 15 Lenalidomide 15 mg PO on Days 1-14 Dexamethasone 20 mg PO on Days 1, 15 Every 28 days [x] Dexamethasone dose reduced for tolerability Current Treatment Plan History: DRd: Cycle 1: 11/30/24 Cycle 2: 12/29/24 Cycle 3: 01/25/25 Cycle 4: 02/22/25 Cycle 5: 03/22/25 Prior Treatment History: N/A Plan: Patient will return to clinic in 4 weeks. Will follow-up at that time. Cosigned by Mohit Villarreal MD at 03/22/2025 11:22 AM EDT documented in this encounter Plan of Treatment Upcoming Encounters Date Type Department Care Team (Late st Contact Info) Description 05/28/2025 1:00 PM EST Office Visit Medical Office Building [facility] [address] [facility], [address] [place] [address] Afshan Bryan MD [address] [facility] [address] [place] [address] Scheduled Orders Name Type Priority Associated Diagnoses Orde r Schedule CBC and differential Lab Routine Multiple myeloma, remission status unspecified (CMS/HCC) Expected: 04/19/2025, Expires: 04/19/2026 Comprehensive metabolic panel Lab Routine Multiple myeloma, remission status unspecified (CMS/HCC) Expected: 04/19/2025, Expires: 04/19/2026 CBC and differential Lab Routine Multiple myeloma, remission status unspecified (CMS/HCC) Expected: 05/03/2025, Expires: 05/03/2026 documented as of this encounter Goals Goal Patient Goal Type Associated Problems Recent Progress Patient-Stated? Author Autogenerat ed Goal Care Plan Autogenerated Problem No Rajiv Garcias MD documented as of this encounter Procedures Procedure Name Priority Date/Time Associated Diagnosis Comments KAPPA LAMBDA QUANTITATIVE FREE LIGHT CHAINS WITH RATIO Routine 03/22/2025 9:18 AM EDT Multiple myeloma not having achieved remission (CMS/HCC) TOTAL PROTEIN, SERUM Routine 03/22/2025 9:18 AM EDT Multiple myeloma not having achieved remission (CMS/HCC) PROTEIN ELECTROPHORESIS, SERUM Routine 03/22/2025 9:18 AM EDT Multiple myeloma not having achieved remission (CMS/HCC) PROTEIN ELECTROPHORESIS, PATHOLOGIST INTERPRETATION Routine 03/22/2025 9:18 AM EDT Multiple myeloma not having achieved remission (CMS/HCC) IG PROFILE Routine 03/22/2025 9:18 AM EDT Multiple myeloma not having achieved remission (CMS/HCC) KAPPA LAMBDA QUANT FREE LIGHT CHAINS WITH RATIO ORDERABLE Routine 03/22/2025 9:18 AM EDT Multiple myeloma not having achieved remission (CMS/HCC) CBC WITH AUTO DIFFERENTIAL Routine 03/22/2025 9:18 AM EDT Multiple myeloma, remission status unspecified (CMS/HCC) PROTEIN ELECTROPHORESIS, SERUM Routine 03/22/2025 9:18 AM EDT Multiple myeloma not having achieved remission (CMS/HCC) COMPREHENSIVE METABOLIC PANEL, PLASMA Routine 03/22/2025 9:18 AM EDT Multiple myeloma, remission status unspecified (CMS/HCC) documented in this encounter Results * (ABNORMAL) CBC and differential (04/05/2025 2:20 PM EDT) WBC Count 4.72 3.70 - 10.30 10*3/uL LAB HEMATOLOGY METHOD 04/05/2025 4:07 PM EDT [facility] RBC Count 3.80(L) 4.60 - 6.10 10*6/uL LAB HEMATOLOGY METHOD 04/05/2025 4:07 PM EDT [facility] HGB 10.8(L) 13.7 - 17.5 g/dL LAB HEMATOLOGY METHOD 04/05/2025 4:07 PM EDT [facility] HCT 33.6(L) 40.0 - 51.0 % LAB HEMATOLOGY METHOD 04/05/2025 4:07 PM EDT [facility] Platelet Count 182 155 - 369 10*3/uL LAB HEMATOLOGY METHOD 04/05/2025 4:07 PM EDT [facility] MCV 88 79 - 98 fL LAB HEMATOLOGY METHOD 04/05/2025 4:07 PM EDT [facility] MCH 28.4 26.0 - 32.0 pg LAB HEMATOLOGY METHOD 04/05/2025 4:07 PM EDT [facility] MCHC 32.1 30.7 - 35.5 g/dL LAB HEMATOLOGY METHOD 04/05/2025 4:07 PM EDT [facility] RDW 18.9(H) 11.5 - 14.5 % LAB HEMATOLOGY METHOD 04/05/2025 4:07 PM EDT [facility] MPV 11.7 8.8 - 12.5 fL LAB HEMATOLOGY METHOD 04/05/2025 4:07 PM EDT [facility] nRBC 0.0 <=0.0 per 100 WBCs LAB HEMATOLOGY METHOD 04/05/2025 4:07 PM EDT [facility] Differential Type Automated LAB HEMATOLOGY METHOD 04/05/2025 4:07 PM EDT [facility] Neutrophils % 32 % LAB HEMATOLOGY METHOD 04/05/2025 4:07 PM EDT [facility] Lymphocytes % 31 % LAB HEMATOLOGY METHOD 04/05/2025 4:07 PM EDT [facility] Monocytes % 29 % LAB HEMATOLOGY METHOD 04/05/2025 4:07 PM EDT [facility] Eosinophils % 6 % LAB HEMATOLOGY METHOD 04/05/2025 4:07 PM EDT [facility] Basophils % 2 % LAB HEMATOLOGY METHOD 04/05/2025 4:07 PM EDT [facility] Immature Granulocytes % 0 % LAB HEMATOLOGY METHOD 04/05/2025 4:07 PM EDT [facility] Neutrophils Absolute 1.50(L) 1.60 - 6.10 10*3/uL LAB HEMATOLOGY METHOD 04/05/2025 4:07 PM EDT [facility] Lymphocytes Absolute 1.48 1.20 - 3.90 10*3/uL LAB HEMATOLOGY METHOD 04/05/2025 4:07 PM EDT [facility] Monocytes Absolute 1.37(H) 0.30 - 0.90 10*3/uL LAB HEMATOLOGY METHOD 04/05/2025 4:07 PM EDT [facility] Eosinophils Absolute 0.29 0.00 - 0.50 10*3/uL LAB HEMATOLOGY METHOD 04/05/2025 4:07 PM EDT [facility] Basophils Absolute 0.07 0.00 - 0.10 10*3/uL LAB HEMATOLOGY METHOD 04/05/2025 4:07 PM EDT [facility] Immature Granulocytes Absolute 0.01 0.00 - 0.06 10*3/uL LAB HEMATOLOGY METHOD 04/05/2025 4:07 PM EDT [facility] Blood Venous blood specimen / Unknown Venipuncture / Unknown 04/05/2025 2:20 PM EDT 04/05/2025 2:45 PM EDT Narrative [facility] - 04/05/2025 4:07 PM EDT Therapeutic decision making should be based on absolute values, rather than percentages. 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 A resident was involved in the service. I attest I examined the relevant preparations for the specimens and confirmed the diagnosis or interpretation. 03/23/2025 12:18 PM EDT [facility] Pathologist Signature, SPEP Reviewed by: Carol Miguel MD 03/23/2025 12:18 PM EDT [facility] LAB CP ASR DISCLAIMER Yes 03/23/2025 12:18 PM EDT [facility] Blood Venous blood specimen / Unknown Venipuncture / Unknown 03/22/2025 9:18 AM EDT 03/22/2025 9:37 AM EDT Mohit Villarreal MD LAB PATHOLOGY ORDERABLES Fi nal Result [facility] [address] [place] [address] * (ABNORMAL) Total Protein, Serum (03/22/2025 9:18 AM EDT) Total Protein 5.8(L) 6.2 - 7.7 g/dL 03/22/2025 10:19 AM EDT [facility] Blood Venous blood specimen / Unknown Venipuncture / Unknown 03/22/2025 9:18 AM EDT 03/22/2025 9:36 AM EDT us Mohit Villarreal MD LAB BLOOD ORDERABLES Final Result Performing Organization Address [facility] [place] [address] * (ABNORMAL) Protein Electrophoresis, Serum (03/22/2025 9:18 AM EDT) Albumin Electrophoresis, Serum 3.6 3.6 - 4.7 g/dL 03/23/2025 1:46 AM EDT [facility] Alpha 1 Globulin Electrophoresis, Serum 0.3 0.2 - 0.4 g/dL 03/23/2025 1:46 AM EDT [facility] Alpha 2 Globulin Electrophoresis, Serum 0.7 0.5 - 0.9 g/dL 03/23/2025 1:46 AM EDT [facility] Beta 1 Globulin Electrophoresis, Serum 0.4 0.3 - 0.5 g/dL 03/23/2025 1:46 AM EDT [facility] Beta 2 Globulin Electrophoresis, Serum 0.3 0.2 - 0.5 g/dL 03/23/2025 1:46 AM EDT [facility] Gamma Globulin Electrophoresis, Serum 0.4(L) 0.6 - 1.5 g/dL 03/23/2025 1:46 AM EDT [facility] Interpretation, Serum Protein Electrophoresis Pathology report to follow. 03/23/2025 1:46 AM EDT [facility] Blood Venous blood specimen / Unknown Venipuncture / Unknown 03/22/2025 9:18 AM EDT 03/22/2025 9:37 AM EDT us Mohit Villarreal MD LAB BLOOD ORDERABLES Final Result [facility] [address] [place] [address] * (ABNORMAL) [place] Lambda Quant Free Light Chains w/Ratio (03/22/2025 9:18 AM EDT) [place] Lambda Free Light Chain Ratio 42.24(H) 0.26 - 1.65 Ratio 03/24/2025 1:36 AM EDT [facility] [place] Quant Free Light Chains 431.70(H) 3.30 - 19.40 mg/L 03/24/2025 1:36 AM EDT [facility] Lambda Quant Free Light Chains 10.22 5.71 - 26.30 mg/L 03/24/2025 1:36 AM EDT [facility] Blood Venous blood specimen / Unknown Venipuncture / Unknown 03/22/2025 9:18 AM EDT 03/22/2025 9:36 AM EDT Narrative [facility] - 03/24/2025 1:36 AM EDT Undetected antigen excess is a rare event but cannot be excluded.If these free light chain results do not agree with other clinical or laboratory findings,or if the sample is from a patient that has previously demonstrated antigen excess,the results must be checked by retesting at a higher sample dilution. Results should always be interpreted in conjunction with other laboratory tests and clinical evidence; any anomalies should be discussed with the testing laboratory. Test performed at [facility],Special Chemistry Laboratory. us Mohit Villarreal MD LAB BLOOD ORDERABLES Final Result [facility] [address] [place] [address] * (ABNORMAL) IG Profile (03/22/2025 9:18 AM EDT) IGA 43(L) 75 - 400 mg/dL 03/22/2025 10:42 AM EDT [facility] IGG 508(L) 720 - 1,589 mg/dL 03/22/2025 10:42 AM EDT [facility] IGM 14(L) 35 - 225 mg/dL 03/22/2025 10:42 AM EDT [facility] Blood Venous blood specimen / Unknown Venipuncture / Unknown 03/22/2025 9:18 AM EDT 03/22/2025 9:36 AM EDT us Mohit Villarreal MD LAB BLOOD ORDERABLES Final Result Performing Organization Address [facility] Co de Phone Number [facility] [address] [place] [address] * (ABNORMAL) Comprehensive metabolic panel (03/22/2025 9:18 AM EDT) Pathologist [facility] Glucose, Plasma 112(H) 74 - 99 mg/dL 03/22/2025 10:25 AM EDT [facility] BUN, Plasma 14 8 - 23 mg/dL 03/22/2025 10:25 AM EDT [facility] Creatinine, Plasma 1.01 0.70 - 1.20 mg/dL 03/22/2025 10:25 AM EDT [facility] BUN/Creatinine Ratio 14 03/22/2025 10:25 AM EDT [facility] Sodium, Plasma 143 136 - 145 mmol/L 03/22/2025 10:25 AM EDT [facility] Potassium, Plasma 3.7 3.6 - 4.9 mmol/L 03/22/2025 10:25 AM EDT [facility] Chloride, Plasma 108(H) 97 - 107 mmol/L 03/22/2025 10:25 AM EDT [facility] CO2, Plasma 20(L) 22 - 29 mmol/L 03/22/2025 10:25 AM EDT [facility] Anion Gap 15 6 - 16 mmol/L 03/22/2025 10:25 AM EDT [facility] Total Calcium, Plasma 9.2 8.9 - 10.2 mg/dL 03/22/2025 10:25 AM EDT [facility] Total Protein 6.2(L) 6.3 - 7.9 g/dL 03/22/2025 10:25 AM EDT [facility] Albumin, Plasma 3.9 3.5 - 5.2 g/dL 03/22/2025 10:25 AM EDT [facility] AST, Plasma 25 10 - 50 U/L 03/22/2025 10:25 AM EDT [facility] ALT, Plasma 19 10 - 50 U/L 03/22/2025 10:25 AM EDT [facility] Alkaline Phosphatase, Plasma 90 40 - 115 U/L 03/22/2025 10:25 AM EDT [facility] Total Bilirubin, Plasma 0.7 0.2 - 1.1 mg/dL 03/22/2025 10:25 AM EDT [facility] eGFRcr 81.0 mL/min/1.7 3m*2 03/22/2025 10:25 AM EDT [facility] Comment:Reported eGFRcr in m L/min/1.73m2 is based the CKD-EPI 2020 equation that does not use a race coefficient. Blood Venous blood specimen / Unknown Venipuncture / Unknown 03/22/2025 9:18 AM EDT 03/22/2025 9:36 AM EDT us Mohit Villarreal MD LAB BLOOD ORDERABLES Final Result [facility] [address] [place] [address] * (ABNORMAL) CBC and differential (03/22/2025 9:18 AM EDT) WBC Count 10.03 3.70 - 10.30 10*3/uL LAB HEMATOLOGY METHOD 03/22/2025 10:14 AM EDT [facility] RBC Count 3.83(L) 4.60 - 6.10 10*6/uL LAB HEMATOLOGY METHOD 03/22/2025 10:14 AM EDT [facility] HGB 10.6(L) 13.7 - 17.5 g/dL LAB HEMATOLOGY METHOD 03/22/2025 10:14 AM EDT [facility] HCT 34.1(L) 40.0 - 51.0 % LAB HEMATOLOGY METHOD 03/22/2025 10:14 AM EDT [facility] Platelet Count 135(L) 155 - 369 10*3/uL LAB HEMATOLOGY METHOD 03/22/2025 10:14 AM EDT [facility] MCV 89 79 - 98 fL LAB HEMATOLOGY METHOD 03/22/2025 10:14 AM EDT [facility] MCH 27.7 26.0 - 32.0 pg LAB HEMATOLOGY METHOD 03/22/2025 10:14 AM EDT [facility] MCHC 31.1 30.7 - 35.5 g/dL LAB HEMATOLOGY METHOD 03/22/2025 10:14 AM EDT [facility] RDW 17.8(H) 11.5 - 14.5 % LAB HEMATOLOGY METHOD 03/22/2025 10:14 AM EDT [facility] MPV 03/22/2025 10:14 AM EDT [facility] Comment:Not measured nRBC 0.0 <=0.0 per 100 WBCs LAB HEMATOLOGY METHOD 03/22/2025 10:14 AM EDT [facility] Differential Type Automated LAB HEMATOLOGY METHOD 03/22/2025 10:14 AM EDT [facility] Neutrophils % 70 % LAB HEMATOLOGY METHOD 03/22/2025 10:14 AM EDT [facility] Lymphocytes % 14 % LAB HEMATOLOGY METHOD 03/22/2025 10:14 AM EDT [facility] Monocytes % 9 % LAB HEMATOLOGY METHOD 03/22/2025 10:14 AM EDT [facility] Eosinophils % 5 % LAB HEMATOLOGY METHOD 03/22/2025 10:14 AM EDT [facility] Basophils % 1 % LAB HEMATOLOGY METHOD 03/22/2025 10:14 AM EDT [facility] Immature Granulocytes % 1 % LAB HEMATOLOGY METHOD 03/22/2025 10:14 AM EDT [facility] Neutrophils Absolute 7.20(H) 1.60 - 6.10 10*3/uL LAB HEMATOLOGY METHOD 03/22/2025 10:14 AM EDT [facility] Lymphocytes Absolute 1.37 1.20 - 3.90 10*3/uL LAB HEMATOLOGY METHOD 03/22/2025 10:14 AM EDT [facility] Monocytes Absolute 0.89 0.30 - 0.90 10*3/uL LAB HEMATOLOGY METHOD 03/22/2025 10:14 AM EDT [facility] Eosinophils Absolute 0.47 0.00 - 0.50 10*3/uL LAB HEMATOLOGY METHOD 03/22/2025 10:14 AM EDT [facility] Basophils Absolute 0.05 0.00 - 0.10 10*3/uL LAB HEMATOLOGY METHOD 03/22/2025 10:14 AM EDT [facility] Immature Granulocytes Absolute 0.05 0.00 - 0.06 10*3/uL LAB HEMATOLOGY METHOD 03/22/2025 10:14 AM EDT [facility] Blood Venous blood specimen / Unknown Venipuncture / Unknown 03/22/2025 9:18 AM EDT 03/22/2025 9:30 AM EDT Narrative [facility] - 03/22/2025 10:14 AM EDT Therapeutic decision making should be based on absolute values, rather than percentages. us Mohit Villarreal MD LAB BLOOD ORDERABLES Final Result [facility] [address] [place] [address] documented in this encounter Visit Diagnoses Diagnosis Multiple myeloma, remission status unspecified (CMS/HCC)- Primary Age-related osteoporosis without current pathological fracture documented in this encounter Additional Health Concerns Active Problems Noted Date Diagnosed Date Autogenerated Problem 10/19/2024 Assessment Noted Time A fall risk assessment has been complete d for the patient 03/22/2025 10:32 AM EDT A Body Mass Index follow-up plan has been documented for the patient 03/22/2025 12:01 PM EDT documented as of this encounter Care Teams Qc Chemist Relationship Specialty Start Date End Date Parrish Thurman MD [facility] [place] [address] PCP - General 10/19/24 documented as of this encounter
--- OUTSIDE RECORDS SUMMARY | 2025-03-22 10:28 | XMS_ITS | Encounter Summary ---
Author Organization [facility] Address [address] [id number] Care Team Providers Care Salesperson Men'S Hats Name Role Phone Parrish Thurman MD Primary Care Provider + [phone] Reason for Visit * Reason Comments OP Infusion * Episode Based Medications (Routine) - Authorized Specialty Diagnoses / Procedures Referred By Halle banuelos Referred To Contact Diagnoses Multiple myeloma not having achieved remission (CMS/HCC) Procedures DRd: Daratumumab / Lenalidomide / Dexamethasone INDUCTION (Possible Velcade) Mohit Villarreal MD [address] [address] Phone: tel: fax: Mohit Villarreal MD [address] [address] Phone: tel: fax: Referral ID Status Reason Start Date Expiration Date V isits Requested Visits Authorized [id number] Authorized 11/27/2024 05/29/2026 1 16 Encounter Details Date Type Department Care Team (Latest Contact Info) Description 03/22/2025 10:28 AM EDT - 03/22/2025 11:59 PM EDT Hospital Encounter [facility] H Infusion 800 [place] [address] Multiple myeloma, remission status unspecified (CMS/HCC) (Primary [...] any time in the past 12 m [facility], were you homeless or living in a nursing home (including now)? 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 0 10/26/2024 CAGE Questionnaire Score 0 025 Utilities Answer Date Recorded In the past 12 months has e [employer], gas, oil, or water [employer] threatened to shut off services in your home? 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 [...] as needed (constipation) . 30 each 12/08/2024 potassium chloride CR (Klor-Con M20) 20 MEQ ER tablet Take 1 tablet by mouth 2 times a day. Do not crush or chew. 60 tablet 1 03/19/2025 prochlorperazine (Compazine) 10 MG tabletIndications:Mu ltiple myeloma [...] break, chew, or open. 14 capsule 02/28/2025 documented as of this encounter Plan of Treatment Upcoming Encounters Date Type Department Care Team (Late st Contact Info) Description 05/28/2025 1:00 PM EST Office Visit Medical Office Building [facility] [address] [facility], [address] [place] [address] Afshan Bryan MD [address] [place] [address] documented as of this encounter [...] 1115, RoutineIndications:Justo lindsey myeloma, remission status unspecified (CMS/[facility]) Given 03/22/2025 10:54 AM EDT 50 mg [...] documented as of this encounter Care Teams Salesperson Men'S Hats Relationship Specialty Start Date End Date Parrish Thurman MD [facility] [place] [address] PCP - General 10/19/24 documented as of this encounter
--- OUTSIDE RECORDS SUMMARY | 2025-04-05 14:00 | XMS_ITS | Encounter Summary ---
Author Organization [facility] Address [address] [id number] Care Team Providers Care Retail Shift Supervisor Name Role Phone Parrish Thurman MD Primary Care Provider + [phone] Reason for Visit * Episode Based Medications (Routine) - Authorized Specialty Diagnoses / Procedures Referred By Halle banuelos Referred To Contact Diagnoses Multiple myeloma not having achieved remission (CMS/HCC) Procedures DRd: Daratumumab / Lenalidomide / Dexamethasone INDUCTION (Possible Velcade) Mohit Villarreal MD 800 [facility] [address] [address] Phone: tel: fax: Mohit Villarreal MD [address] [address] Phone: tel: fax: Referral ID Status Reason Start Date Expiration Date V isits Requested Visits Authorized [id number] Authorized 11/27/2024 05/29/2026 1 16 Encounter Details Date Type Department Care Team (Latest Contact Info) Description 04/05/2025 2:00 PM EDT - 04/05/2025 11:59 PM EDT Hospital Encounter PAV H Infusion [address] [place] [address] Multiple myeloma, remission status unspecified (CMS/HCC) (Primary [...] any time in the past 12 m [facility], were you homeless or living in a long-term (including now)? No 09/14/2024 CAGE ASSESSMENT Answer [...] drink first t kiet in the morning (EYE-CORPORATE QUALITY MANAGER) to steady your nerves or to get rid of a hangover? 0 10/26/2024 CAGE Questionnaire Score 0 025 Utilities Answer Date Recorded In the past 12 months has th e [employer], gas, oil, or water company threatened to shut off services in your home? 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 [...] NEEDED FOR SEVERE PAIN 60 tablet 03/01/2025 documented as of this encounter Plan of Treatment Upcoming Encounters Date Type Department Care Team (Late st Contact Info) Description 05/28/2025 1:00 PM EST Office Visit Medical Office Building [facility] [address], [address] [place] [address] Afshan Bryan MD [address] [place] [address] documented as of this encounter Goals Goal Patient Goal Type Associated Problems Recent Progress Patient-Stated? Author Autogenerat ed Goal Care Plan Autogenerated Problem No Rajiv Garcias MD documented as of this encounter Procedures Procedure Name Priority Date/Time Associated Diagnosis Comments CBC WITH AUTO DIFFERENTIAL Routine 04/05/2025 2:20 PM EDT Multiple myeloma, remission status unspecified ([facility]) documented in this encounter Results * (ABNORMAL) CBC and differential (04/05/2025 2:20 PM EDT) WBC Count 4.72 3.70 - 10.30 10*3/uL LAB HEMATOLOGY METHOD 04/05/2025 4:07 PM EDT [facility] RBC Count 3.80(L) 4.60 - 6.10 10*6/uL LAB HEMATOLOGY METHOD 04/05/2025 4:07 PM EDT [facility] HGB 10.8(L) 13.7 - 17.5 g/dL LAB HEMATOLOGY METHOD 04/05/2025 4:07 PM EDT [facility] HCT 33.6(L) 40.0 - 51.0 % LAB HEMATOLOGY METHOD 04/05/2025 4:07 PM EDT [facility] Platelet Count 182 155 - 369 10*3/uL LAB HEMATOLOGY METHOD 04/05/2025 4:07 PM EDT [facility] MCV 88 79 - 98 fL LAB HEMATOLOGY METHOD 04/05/2025 4:07 PM EDT [facility] MCH 28.4 26.0 - 32.0 pg LAB HEMATOLOGY METHOD 04/05/2025 4:07 PM EDT [facility] MCHC 32.1 30.7 - 35.5 g/dL LAB HEMATOLOGY METHOD 04/05/2025 4:07 PM EDT [facility] RDW 18.9(H) 11.5 - 14.5 % LAB HEMATOLOGY METHOD 04/05/2025 4:07 PM EDT [facility] MPV 11.7 8.8 - 12.5 fL LAB HEMATOLOGY METHOD 04/05/2025 4:07 PM EDT [facility] nRBC 0.0 <=0.0 per 100 WBCs LAB HEMATOLOGY METHOD 04/05/2025 4:07 PM EDT [facility] Differential Type Automated LAB HEMATOLOGY METHOD 04/05/2025 4:07 PM EDT [facility] Neutrophils % 32 % LAB HEMATOLOGY METHOD 04/05/2025 4:07 PM EDT [facility] Lymphocytes % 31 % LAB HEMATOLOGY METHOD 04/05/2025 4:07 PM EDT [facility] Monocytes % 29 % LAB HEMATOLOGY METHOD 04/05/2025 4:07 PM EDT [facility] Eosinophils % 6 % LAB HEMATOLOGY METHOD 04/05/2025 4:07 PM EDT [facility] Basophils % 2 % LAB HEMATOLOGY METHOD 04/05/2025 4:07 PM EDT [facility] Immature Granulocytes % 0 % LAB HEMATOLOGY METHOD 04/05/2025 4:07 PM EDT [facility] Neutrophils Absolute 1.50(L) 1.60 - 6.10 10*3/uL LAB HEMATOLOGY METHOD 04/05/2025 4:07 PM EDT [facility] Lymphocytes Absolute 1.48 1.20 - 3.90 10*3/uL LAB HEMATOLOGY METHOD 04/05/2025 4:07 PM EDT [facility] Monocytes Absolute 1.37(H) 0.30 - 0.90 10*3/uL LAB HEMATOLOGY METHOD 04/05/2025 4:07 PM EDT [facility] Eosinophils Absolute 0.29 0.00 - 0.50 10*3/uL LAB HEMATOLOGY METHOD 04/05/2025 4:07 PM EDT [facility] Basophils Absolute 0.07 0.00 - 0.10 10*3/uL LAB HEMATOLOGY METHOD 04/05/2025 4:07 PM EDT [facility] Immature Granulocytes Absolute 0.01 0.00 - 0.06 10*3/uL LAB HEMATOLOGY METHOD 04/05/2025 4:07 PM EDT [facility] Blood Venous blood specimen / Unknown Venipuncture / Unknown 04/05/2025 2:20 PM EDT 04/05/2025 2:45 PM EDT Narrative [facility] - 04/05/2025 4:07 PM EDT Therapeutic decision making should be based on absolute values, rather than percentages. us Mohit Villarreal MD LAB BLOOD ORDERABLES Final Result [facility] [address] [place] [address] documented in this encounter Visit Diagnoses Diagnosis [...] documented as of this encounter Care Teams Retail Shift Supervisor Relationship Specialty Start Date End Date Parrish Thurman MD [address] [facility] [address], [place] [address] PCP - General 10/19/24 documented as of this encounter
--- NOTE | 2025-05-03 10:14 | PC.NURSE ---
1005 Labs collected as ordered via venipuncture to R AC x1 stick with butterfly needle. Patient tolerated well. Patient has appointment with Dr. Gibbons.
[2025-05-03 10:21] LABS: Hematocrit 36.0 % (42.0-52.0); Hemoglobin 11.7 g/dL (14.1-18.0); Immature Granulocytes % 0.3 %; Mean Corpuscular HGB Conc 32.5 g/dL (31.8-35.4); Mean Corpuscular Hemoglobin 29.4 pg (27.0-31.2); Mean Corpuscular Volume 90.5 fl (80-94); Nucleated Red Blood Cells % 0 %; Platelet Count 247 K/mm3 (142-424); Red Blood Count 3.98 M/mm3 (4.60-6.20); Red Cell Distribution Width-SD 60.4 fL; White Blood Count 6.7 K/mm3 (4.8-10.8)
--- OUTSIDE RECORDS SUMMARY | 2025-05-03 10:26 | XMS_ITS | Encounter Summary ---
Author Organization [facility] Address [address] [id number] Care Team Providers Care Ropeman Name Role Phone Parrish Thurman MD Primary Care Provider [phone] Reason for Referral * Medications - Authorized Specialty Diagnoses / Procedures Referred By Halle banuelos Referred To Contact Diagnoses Multiple myeloma not having achieved remission (CMS/HCC) Mohit Villarreal MD [address] [facility] Cancer [address] [address] Phone: tel: fax: Referral ID Status Reason Start Date Expiration Date V isits Requested Visits Authorized [id number] Authorized 08/17/2024 11/15/2025 1 1 Encounter Details Date Type Department Care Team (Late st Contact Info) Description 03/27/2025 Refill [facility] Hematology/BMT and Cellular Therapy Program [address] [place] [address] Mohit Villarreal MD [address] [facility] Cancer [address] [address] Multiple myeloma not having achieved remission (CMS/HCC) Social History Tobacco Use Types Packs/Day Years Used Date Smoking Tobacco: Former Passive Smoke Exposure: Past Smokeless Tobacco: Current Chew Comments:Quit smoking ; 15 pkyrs Alcohol Use Standard Drinks/Week Comments [...] any time in the past 12 m [facility], were you homeless or living in a fpc (including now)? 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 Author Autogenerat ed Goal Care Plan Autogenerated Problem No Rajiv Garcias MD documented as of this encounter Visit Diagnoses Diagnosis Multiple myeloma not having achieved remission (CMS/HCC) documented in this encounter Additional Health Concerns Active Problems Noted Date Diagnosed Date Autogenerated Problem 10/19/2024 Assessment Noted Time A fall risk assessment has been complete d for the patient 03/22/2025 10:32 AM EDT A Body Mass Index follow-up plan has been documented for the patient 03/22/2025 12:01 PM EDT documented as of this encounter Care Teams Ropeman Relationship Specialty Start Date End Date Parrish Thurman MD [address] [place] [address] PCP - General 10/19/24 documented as of this encounter
--- OUTSIDE RECORDS SUMMARY | 2025-05-03 10:26 | XMS_ITS | Clinical Summary ---
Author Organization [facility] Address [address] [place] [address] Care Team Providers Care Residential Nurse Name Role Phone Provider, No Known Primary Care Provider Unavail able Social History Tobacco Use Types Packs/Day Years Used Date Smoking Tobacco: Never Assessed Abuse Screen Answer Date Recorded Unsafe at Home or Work/School Not on file Feels Threatened by Someone? Not on file 06/2023 Does Anyone Keep You from Co ntacting Others or Doint Things Outside the Home? Not on file 04/22/2023 Physical Sign of Abuse Present Not on file 1 Housing Stability Answer Date Recorded Current Living Arrangements Not on file 04/11 Potentially Unsafe Housing Conditions Not on justice e 04/22/2023 Family and Community Support Answer Luisito e Recorded Help with Day-to-Day Activities Not on file 04/22/2023 Lonely or Isolated Not on file 04/22/2023 Employment Answer Date Recorded Do you want help finding or keeping work or a reagan b? Not on file 04/22/2023 Disabilities Answer Date Recorded Concentrating, Remembering, or Making Decisions Difficulty Not on file 04/22/2023 Doing Errands Independently Difficulty Not on fi le 04/22/2023 Education Answer Date Recorded Help with school or training? Not on file Preferred Language Not on file 04/22/2023 Sex and Gender Information Value Date Recorded Sex Assigned at Not on file Legal Sex Male 7:17 PM EDT Gender Identity Not on file Sexual Orientation Not on file Plan of Treatment Health Maintenance Due Date Last Done Comments ANNUAL PHYSICAL 1955 HEPATITIS C SCREENING 1955 TDAP/TD VACCINES (1 - Tdap) 10/21/1975 COLOGUARD 2001 COLON CANCER SCREENING 5 YEAR SIGMOIDOSCOPY 2001 COLONOSCOPY [address] CANCER SCREENING 2001 CT COLONOGRAPHY 2001 FECAL OCCULT BLOOD TEST 2001 FIT Testing (1 year) 2001 ZOSTER VACCINE (1 of 2) 2006 Pneumococcal Vaccine 50+ (2 of 2 - PCV) 02/07/2018 0 02/07/2017 AAA SCREEN ONCE 2021 INFLUENZA VACCINE 02/09/2025 COVID-19 Vaccine ( - 2024- season) 03/12/202504/2021 Insurance [facility] PPO Care Teams Residential Nurse Relationship Specialty Start Date End Date Provider, No Known [facility] [place] [address] PCP - General 10/22/20
--- OUTSIDE RECORDS SUMMARY | 2025-05-03 10:26 | XMS_ITS ---
Author Organization [facility] Address [address] [place] [address] Care Team Providers Care Laminating Machine Offbearer Name Role Phone Parrish Thurman MD Primary Care Provider [phone] Active Problems Problem Noted Date Diagnosed Date Pathological fracture of vertebra 02/22/2025 Right knee pain 02/22/2025 Sciatica 02/22/2025 Spinal cord disorder 02/22/2025 Chronic obstructive pulmonary disease 02/22/2025 Arthropathy of lumbar facet joint 02/22/2025 Chronic pain 02/22/2025 Mild intermittent asthma 02/22/2025 Encounter for antineoplastic immunotherapy 02/22 Encounter for monitoring lenalidomide therapy Bilateral lower extremity edema 02/22/2025 Degeneration of lumbar intervertebral disc 01/25 Degeneration of thoracic intervertebral disc Displacement of lumbar inter vertebral disc without myelopathy 01/25/2025 Tobacco use disorder 11/23/2024 Class 1 obesity 11/14/2024 Age-related osteoporosis wit hout current pathological fracture 11/10/2024 Hypercalcemia 11/09/2024 Compression fracture of body of thoracic vertebr a 11/08/2024 Multiple myeloma 11/08/2024 Cancer Staging:Clinical stage from 11/13/2024:RISS Stage III(Cfoe-5-mwvhhukthadhe (mg/L): 7.7, Albumin (g/dL): 3.6, ISS: Stage III, High-risk cytogenetics: Present, LDH: Elevated) - Unsigned Morbid obesity 11/08/2024 Chronic gout without tophus 11/08/2024 Benign prostatic hyperplasia without lower urinary tract symptoms 11/08/2024 Thoracic back pain, unspecif ied back pain laterality, unspecified chronicity 10/25/2024 S/P spinal fusion 10/18/2024 Spinal cord compression 09/13/2024 Gastroesophageal reflux disease 08/12/2016 Hiatal hernia 08/12/2016 Primary hypertension 09/08/2010 Monoclonal gammopathy 10/27/2024 Overview (11/10/2024): IgG [place] Current Treatment and Therapy Plans (HEM) Outpatient Electrolyte Replacement Protocol* Plan Start Date:11/30/2024 Plan Provider:Mohit Villarreal MD Linked Problems HypercalcemiaMultiple myelom a Treatment Medications No medications scheduled. DRd: Daratumumab / Lenalidomide / Dexamethasone INDUCTION* Plan Start Date: 11/29/2024 Plan Provider:Mohit Villarreal MD Linked Problems Multiple myeloma, remission status unspecified (CMS/HCC) Treatment Medications Current Day (Day 1 , Cycle 6 - Planned for 04/19/2025) Next Day (Day 15, Cycle 6 - Planned for 05/03/2025) llrtdhrzqbu-edmfqdtupgvgp-cy h j (Darzalex Faspro) zgpmvhnnmna-kezgzahtwqdgx-rz hj (Darzalex Faspro) chemo injection 1,800 mg peipmhosyso-xabdxttyzzvid-vf hj (Darzalex Faspro) chemo injection 1,800 mg Other Current Plans (Hem/Onc) Zoledronic Acid* Plan Start Date:04/19/2025 Plan Provider:Mohit Villarreal MD Linked Problems Age-related osteoporosis wit hout current pathological fracture Treatment Medications No medications scheduled. Line Care (Peripheral)* Plan Start Date:11/23/2024 Plan Provider:Hilario Burger MD Linked Problems Age-related osteoporosis wit hout current pathological fracture Treatment Medications No medications scheduled. Past Treatment and Therapy Plans Infusion Treatment 1 Plan Name Start Date Discontinue Date Treatment Medications Discontinue Reason Plan Provider Zoledronic Acid (Reclast) - (Non-Oncology) 11/09/2024 11/10/2024 No medications scheduled. Other (See Comments) Hilario Burger MD Infusion Treatment 2 Plan Name Start Date Discontinue Date Treatment Medications Discontinue Reason Plan Provider (Hem/Onc) Zoledronic Acid 11/10/2024 11/10/2024 No medications scheduled. Other (See Comments) Hilario Burger MD Lifetime Dose Tracking * Chemical Lifetime Dose Automatic Entry Manual Entr y Fluoro Time 1.917 minutes 1.917 minutes 0 minutes Air Kerma 388.69 mGy 388.69 mGy 0 mGy Resolved Problems Problem Noted Date Diagnosed Date Resolved Date Chronic obstructive pulmonar y disease with acute lower respiratory infection 01/25/20252024 COPD (chronic obstructive pu lmonary disease) with acute bronchitis 05/13/2016 04/01/2025
--- OUTSIDE RECORDS SUMMARY | 2025-05-03 10:26 | XMS_ITS | Encounter Summary ---
Author Organization [employer] ([place], [place], [place], [place]) Address [address] [place] [address] Care Team Providers Care Deep Submergence Vehicle Crewmember Name Role Phone Unavailable Primary Care Provider Unavailabl e Encounter Details Date Type Department Care Team (Late st Contact Info) Description 08/30/2018 Transcribed Document [facility] [place] [facility] [place] [address] ProviderTree MD [address] [place] [place], [place] [id number] Social History Tobacco Use Types Packs/Day Years Used Date Smoking Tobacco: Never Assessed Sex and Gender Information Value Date Recorded Sex Assigned at Male 01/06/2022 8:27 PM CDT Legal Sex Male 8:27 PM CDT Gender Identity Male 01/06/2022 8:27 PM CDT Sexual Orientation Not on file documented as of this encounter Miscellaneous Notes * Cerner Conversion Note - Tree Alonso MD - 08/30/2018 12:44 PM DIRECTOR SUPPLIER QUALITY [facility] Main OR PACU Summary Primary Physician: BEATRIZ RAWLS MD-ORT Finalized Date/Time: 08/30/18 18:53:12 Pt. Name: PETRA VILLALBA/Sex: 1955 Male Med Rec #: [id number] Physician: BEATRIZ RAWLS MD-MARCO Financial #: [id number] Pt. Type: O Room/Bed: 648/1 Admit/Disch: 08/30/18 06:24:00 - Institution: [facility] Main OR PACU I Case Times Entry 1 In PACU I 08/30/18 14:52:00 Ready for PACU 08/30/18 15:45:00 Discharge Discharge from PACU 08/30/18 17:53:00 I Last Modified By: PAUL PEARSON RN 08/30/18 17:39:47 [facility] Main OR PACU I Case Times Audit 08/30/18 18:52:48 Cold Strip Feeder: NISHA Modifier: NISHA <+> 1 Discharge from PACU I [facility] Main OR PACU Acuity Entry 1 Start Time 08/30/18 15:45:00 Stop Time 08/30/18 17:53:00 Acuity Level [facility] PACU Acuity I Last Modified By: PAUL PEARSON RN 08/30/18 18:52:57 Finalized By: PAUL PEARSON, RN Document Signatures Signed By: PAUL PEARSON RN 08/30/18 18:53 documented in this encounter Plan of Treatment Not on file documented as of this encounter Visit Diagnoses Not on filedocumented in this encounter
--- OUTSIDE RECORDS SUMMARY | 2025-05-03 10:26 | XMS_ITS | Encounter Summary ---
Author Organization [facility] Address [address] [id number] Care Team Providers Care Chief School Finance Officer Name Role Phone Parrish Thurman MD Primary Care Provider + [phone] Reason for Referral * Consultation (Routine) - Authorized Specialty Diagnoses / Procedures Referred By Halle banuelos Referred To Contact Hematology and Oncology Diagnoses Multiple myeloma, remission status unspecified (CMS/HCC) Mohit Villarreal MD [address] [facility] Cancer [address] [address] Phone: tel: fax: Referral ID Status Reason Start Date Expiration Date Visits Requested Visits Authorized [id number] Authorized Specialty Services Required 03/27/2025 09/26/2026 1 1 Encounter Details Date Type Department Care Team ([facility] Contact Info) Description 03/27/2025 Orders Only [facility] Hematology/BMT and Cellular Therapy Program [address] [place] [id number] Natalie Andrews, RN [facility] Multiple myeloma, remission status unspecified (CMS/HCC) (Primary Dx) Social History Tobacco Use Types Packs/Day Years [...] time in the past 12 m [facility], were you homeless or living in a longterm (including now)? 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 file Not on file Not on file documented as of this encounter Plan of Treatment Upcoming Encounters Date Type Department Care Team ([facility] st Contact Info) Description 05/28/2025 1:00 PM EST Office Visit Medical Office Building [facility] [address], [address] [place] [address] Afshan Bryan MD [address] [place] [address] Scheduled Referrals Name Type Priority Associated Diagnoses Order Schedule Ambulatory referral to Hematology Oncology/Medical Oncology Outpatient Referral Routine Multiple myeloma, remission status unspecified (CMS/HCC) 1 Occurrences starting 03/27/2025 until 09/28/2026 documented as of this encounter Goals Goal Patient Goal Type Associated Problems Recent Progress Patient-Stated? Author Autogenerat ed Goal Care Plan Autogenerated Problem No Rajiv Garcias MD documented as of this encounter Visit Diagnoses Diagnosis Multiple myeloma, remission status unspecified (CMS/HCC)- Primary documented in this encounter Additional Health Concerns Active Problems Noted Date Diagnosed Date Autogenerated Problem 10/19/2024 Assessment Noted Time A fall risk assessment has been complete d for the patient 03/22/2025 10:32 AM EDT A Body Mass Index follow-up plan has been documented for the patient 03/22/2025 12:01 PM EDT documented as of this encounter Care Teams Chief School Finance Officer Relationship Specialty Start Date End Date Parrish Thurman MD [address] [facility] [address] [place] [place] [address] PCP - General 10/19/24 documented as of this encounter
--- OUTSIDE RECORDS SUMMARY | 2025-05-03 10:26 | XMS_ITS | Encounter Summary ---
Author Organization [employer] ([place], [place], [place], [place]) Address [address] [place] [address] Care Team Providers Care Sole Rounder Name Role Phone Unavailable Primary Care Provider Unavailabl e Encounter Details Date Type Department Care Team (Late st Contact Info) Description 08/30/2018 Transcribed Document [facility] [place] Replaced by [facility] [place] [address] ProviderTree MD Replaced by [facility] [place] [id number] Social History Tobacco Use Types Packs/Day Years Used Date Smoking Tobacco: Never Assessed Sex and Gender Information Value Date Recorded Sex Assigned at Male 01/06/2022 8:27 PM CDT Legal Sex Male 8:27 PM CDT Gender Identity Male 01/06/2022 8:27 PM CDT Sexual Orientation Not on file documented as of this encounter Miscellaneous Notes * Cerner Conversion Note - Tree ProviderMD - 08/30/2018 6:23 AM COOPERATIVE EDUCATION COORDINATOR Admission History, Adult Entered On: 08/30/2018 18:55 EST Performed On: 08/30/2018 6:23 EST by Xochilt Ba RN Advance Directive Patient has Advance Directive *Q : No, patient requests information about Advance Directive Xochilt Ba RN - 08/30/2018 18:47 EST Anesthesia/Transfusion History Family History of Anesthesia Reaction : No prior transfusion(s) Blood Transfusion Acceptable to Patient : Yes Transfusion History : No prior anesthesia Family History of Anesthesia Reaction : None Xochilt Ba RN - 08/30/2018 18:47 EST Education Topics, Admission Orientation DCP GENERIC CODE Advance Directives : Verbalizes understanding Allergy Band Applied : Verbalizes understanding Assessment/Vital Signs : Verbalizes understanding Call Light : Verbalizes understanding Confidentiality : Verbalizes understanding Diet/Room Service : Verbalizes understanding Fall Prevention : Verbalizes understanding Hand Hygiene : Verbalizes understanding Healthcare Provider Visit : Verbalizes understanding ID Band Applied : Verbalizes understanding Orientation to Room/Bathroom : Verbalizes understanding Patient Safety : Verbalizes understanding Rounding : Verbalizes understanding Siderails use/risks : Verbalizes understanding Television/Phone : Verbalizes understanding Visiting Policy : Verbalizes understanding Xochilt Ba RN - 08/30/2018 18:47 EST Functional Assessment Living Situation : Home Patient Lives With : Spouse Persons Assisting Patient at Home : Spouse Current Daily Living Assistance : ADLs Sensory Deficits : None Mobility Assistance Prior to Admission : Independent JIMÉNEZ Hx Falls Immediate/Within 3 Months : No Current Home Treatments : None Home Equipment : Cane, Walker Cane : Cane, single point Walker : Walker, standard Professional Skilled Services : None Xochilt Ba RN - 08/30/2018 18:47 EST General Info Arrived From : Home Mode of Arrival on Unit : Ambulatory Legal Guardian : Spouse Support Person/Patient Grade Checker : Yes Support Person/Pt Rep Name : Wellington Howell - Support Person/Pt Rep Contact Information : [phone] Want Family/Rep/Phys Notified of Admit : No Emergency Contact #1 : Wellington Howell Emergency Contact #1 Emergency Contact #1 Relationship : Emergency Contact #2 : na Emergency Contact #2 Phone Number : na Emergency Contact #2 Relationship : na Information Obtained From : Patient Primary Language : Belizean Preferred Communication Mode : Verbal Communication Barrier : None Objects to Sharing Info w Family : No Clinical Trials Participant *Q : None CTP, None *Q : Yes Xochilt Ba RN - 08/30/2018 18:47 EST Fall Risk Scales ABCs Fall Injury Risk Identification : Age, Bones, Surgery ABC Fall Injury Risk : Moderate to high injury risk Injury Moderate to High Risk Interventions : Fall contract/letter per facility policy, High Risk for Fall Injury sign in place per policy, Patient room close to nurses station, Specialty low bed, Supervise toileting as indicated, Toileting schedule, Transport methods appropriate to patient, Wrist band (fall risk) on per policy JIMÉNEZ Hx Falls Immediate/Within 3 Months : No Jiménez Secondary Diagnosis : Yes JIMÉNEZ Use of Ambulatory Aid : Crutches/Cane/Walker JIMÉNEZ IV Therapy or IV Access : Yes Jiménez Gait/Transferring : Weak Jiménez Mental Status : Oriented to own ability Jiménez Fall Risk Score : 60 JIMÉNEZ Fall Scale Risk Level : 46 or > High Risk [place] Fall Interventions : Adequate lighting, Assistive devices within reach, Bed in low position, Call device within reach, Fall prevention handout/education per facility policy, Frequent orientation to call device, Frequent orientation to surroundings, Hourly comfort/safety rounds, Non-slip footwear, Personal items within reach, Reinforced to call for assistance before getting out of bed, Room free of clutter/spills, Upper side-rails up, Wheels locked, Wires/Cords secured Fall Moderate to High Risk Interventions : Fall contract/letter per facility policy, High Risk for Fall sign in place per policy, Patient room close to nurses station, Supervise toileting as indicated, Transport methods appropriate to patient, Toileting schedule, Wrist band (fall risk) on Xochilt Ba RN - 08/30/2018 18:47 EST Fall Risk Education Grid Assistive Equipment Use : Verbalizes understanding Bed Height/Stabilization : Verbalizes understanding Call light use : Verbalizes understanding Door Open : Verbalizes understanding Fall Contract/Letter : Verbalizes understanding Night Light Use : Verbalizes understanding Nonskid Footwear Use : Verbalizes understanding Risk Factors : Verbalizes understanding Safety Aids : Verbalizes understanding Siderails use/risks : Verbalizes understanding Special Assistive Devices : Verbalizes understanding Staff Responsiveness : Verbalizes understanding Symptom Identification & Action Plan *Q : Verbalizes understanding Symptom Reporting : Verbalizes understanding Toileting Schedule : Verbalizes understanding Transfer/Mobility Techniques : Verbalizes understanding Urinal/Bedpan Availability : Verbalizes understanding Wait for Assistance : Verbalizes understanding Wheelchair Safety : Verbalizes understanding Xochilt Ba RN - 08/30/2018 18:47 EST Fall Risk Scale Calc Temp : 1 Xochilt Ba RN - 08/30/2018 18:47 EST Health Histories Smoking Status : Former smoker, quit more than 30 days ago Smokeless Tobacco Status : Smokeless tobacco user within last 30 days Desires Tobacco Cessation Medication : No Reason for No Tobacco Cessation Medication : Refuses FDA approved medications Xochilt Ba RN - 08/30/2018 18:47 EST Social History (As Of: 08/30/2018 18:55:23 EST) Tobacco: Former smoker, quit more than 30 days ago Smoking Status. Smokeless tobacco user within last 30 days Smokeless Tobacco Status. Years of Use: 18. Packs/Tins Daily: 0.5. Last Used: started smoking at age 16 quit smoking 1992 use dip 1/2 can /day since. (Last Updated: 08/19/2018 14:37:33 EST by HIRAL MONTOYA RN) Alcohol: Alcohol Use Frequency Rarely. (Last Updated: 08/19/2018 14:37:43 EST by HIRAL MONTOYA RN) Substance Abuse: Drug Use Hx: No. Use in Last 12 Months: No. (Last Updated: 08/19/2018 14:37:49 EST by HIRAL MONTOYA RN) Home/Environment: Lives with Spouse. Living situation: Home/Independent. (Last Updated: 08/19/2018 14:39:03 EST by HIRAL MONTOYA RN) Employment/School: Employed (Last Updated: 08/19/2018 14:39:10 EST by HIRAL MONTOYA RN) Height and Weight, Clinical Dosing Height Source : Measured Height Entry Format : [place] Height, Feet : 5 ft(Converted to: 152 cm, 60 Inch) Height, Inches : 8.5 Inch(Converted to: 0 ft 9 Inch, 21.59 cm) Clinical Height : 173.99 cm Weight Source : Standing scale Weight Entry Format : [place] Clinical Dosing Weight : 101.82 kg Weight, Pounds : 224 lb Weight, Ounces : 0 oz Body Surface Area (BSA) : 2.16 m2 Body Mass Index : 33.6 kg/m2 (HI) [place] Body Weight : 69 kg Xochilt Ba RN - 08/30/2018 18:47 EST Infectious Disease History Infectious Disease History : Chicken pox/Shingles, Measles, Mumps Active Surveillance Screen Assessment : Patient does not meet any of above criteria Active Surveillance Screen Negative : Yes Isolation Needed : Standard Fever/Chills Last 48 Hours : No Travel To Regions with Travel Advisories : No Travel Outside [place] Within Last 30 Days : No Contact With Traveler to Advisory Region : No Tuberculosis Symptoms : None Xochilt Ba RN - 08/30/2018 18:47 EST Tetanus Immunization Status Previous Tetanus Immunizations : No qualifying data available. Tetanus Immunization : Less than 5 years Xochilt Ba RN - 08/30/2018 18:47 EST Influenza Vaccine Asmt, Adult Previous Vaccines from Immunization Schedule : No qualifying data available. Influenza Immunization, Current Season : Yes Xochilt Ba RN - 08/30/2018 18:47 EST Pneumococcal Vaccine Previous Vaccines from Immunization Schedule : No qualifying data available. Pneumonia Immunization Received : Yes Xochilt Ba RN - 08/30/2018 18:47 EST Nutrition History Feeding Ability : Independent Adaptive Feeding Equipment : None Adaptive Feeding Equipment : Regular Oral Medication Administration : By mouth Eating Poorly Due to Decreased Appetite : No Unplanned Weight Loss in Past 3-6 Months : No Malnutrition Screening Tool Total(mal) : 0 Malnutrition Screening Tool Risk Level : Patient not at risk Xochilt Ba RN - 08/30/2018 18:47 EST Psychosocial History Do You Have a History of the Following? : Patient denies history Currently in Unsafe Situation : No Tried to Harm Yourself in the Past? : No Thoughts of Harming/Killing Yourself : No Xochilt Ba RN - 08/30/2018 18:47 EST Sleep Apnea Risk Assmt Hx of Obstructive Sleep Apnea Diagnosis : No Snore Loudly : Yes Tired, Fatigued, or Sleepy During Day : No Observed Stopping Breathing During Sleep : No Have/Are Being Treated for Hypertension : Yes STOP Sleep Apnea Risk Level Score : 2 STOP Sleep Apnea Risk Level : High Sleep Apnea Risk Comment : sleep Apnea test wa negative Xochilt Ba RN - 08/30/2018 18:47 EST Valuables and Belongings Valuables and Belongings : Clothing, Personal items Clothing : Common streetwear, Sleepwear Clothing Disposition : With patient Personal Items : Cell phone Personal Items Disposition : With patient Xochilt Ba RN - 08/30/2018 18:47 EST documented in this encounter Plan of Treatment Not on file documented as of this encounter Visit Diagnoses Not on filedocumented in this encounter
--- OUTSIDE RECORDS SUMMARY | 2025-05-03 10:26 | XMS_ITS | Encounter Summary ---
Author Organization [employer] ([place], [place], [place], [place]) Address [address] [place] [address] Care Team Providers Care Wildlife Technician Name Role Phone Unavailable Primary Care Provider Unavailabl e Encounter Details Date Type Department Care Team (Late st Contact Info) Description 08/30/2018 Transcribed Document [facility] [facility] [place] [address] ProviderTree MD [address], [place] [id number] Social History Tobacco Use Types Packs/Day Years Used Date Smoking Tobacco: Never Assessed Sex and Gender Information Value Date Recorded Sex Assigned at Male 01/06/2022 8:27 PM CDT Legal Sex Male 8:27 PM CDT Gender Identity Male 01/06/2022 8:27 PM CDT Sexual Orientation Not on file documented as of this encounter Miscellaneous Notes * Cerner Conversion Note - Tree ProviderMD - 08/30/2018 2:59 PM MUSIC INSTRUCTOR Evaluation, Physical Therapy Entered On: 08/31/2018 12:38 EST Performed On: 08/31/2018 10:52 EST by TEJAL ROBERTS, PT General Information, PT Visit Type, PT : Initial evaluation Patient Orders : Order Date Order Ordering 08/30/2018 15:00 PT Evaluation and Treatment Ordered By: BEATRIZ RAWLS MD-ORT 08/30/2018 15:00 PT Treatment Instructions Ordered By: BEATRIZ RAWLS MD-ORT 08/30/2018 15:00 PT Treatment Instructions Ordered By: BEATRIZ RAWLS MD-ORT 08/30/2018 15:00 PT Treatment Instructions Ordered By: BEATRIZ RAWLS MD-ORT 08/30/2018 15:00 PT Treatment Instructions Ordered By: BEATRIZ RAWLS MD-ORT 08/30/2018 15:00 PT Treatment Instructions Ordered By: BEATRIZ RAWLS MD-ORYuko Active Diagnoses : 08/30/2018 00:00 Osteonecrosis, unspecified Admission Date : 08/30/2018 06:24 Co-treated by, PT : Occupational Therapist Personal Devices : Personal Devices No Devices Recorded Assistive Devices : Assistive Devices No Devices Recorded General Information Comment, PT : 62 yo male adm to [facility] 08/30 for adv OA R Knee and has had R TKA PMHx significant for HBP TEJAL ROBERTS, PT - 08/31/2018 12:08 EST General Status Patient Received Status : Supine in bed Treatment Start Time : 08/31/2018 9:54 EST Patient Left Status : Up in chair, RN/PCT informed, Communication board completed, All needs met and within reach RN/PCT Informed Comment : yes per RN Kalee Treatment End Time : 08/31/2018 10:52 EST Treatment Time : 58 Minute(s) Actual Treatment Time : 58 Minute(s) TEJAL ROBERTS, PT - 08/31/2018 12:08 EST History and Environment Living Situation, Therapy : Home Patient Lives With : Spouse Persons Assisting Patient at Home : Spouse Professional Skilled Services : None Persons Providing Information : Patient Home Equipment Therapy, PT : Cane, Commode, Crutches, Walker, Other: hoveround Cane : Cane, single point Commode : Commode, bedside Crutches : Crutches, axillary Walker : Walker, four wheel Walker Comment : Rollator Home Setup : One story Bedroom Location : Main level Bathroom #1 Location : Main level Bathroom #1 Features : Toilet, Tub/Shower Stairs : Yes Stair Location(s) : Outside Outside Stairs, Number of Steps : 1 Outside Stairs Comment : total 2 steps with porch inbetween Railing Outside : No Ramp : No TEJAL ROBERTS, PT - 08/31/2018 12:08 EST Prior Level of Function PT GRID Prior LOF Ambulation, Household : Independent (Comment: kirt [TEJAL ROBERTS, PT - 08/31/2018 12:08 EST] ) Prior LOF Ambulation, Community : Independent (Comment: kirt [TEJAL ROBERTS, PT - 08/31/2018 12:08 EST] ) Prior LOF Bed Mobility : Independent Prior LOF Toileting : Independent Prior LOF Transfer : Independent TEJAL ROBERTS, PT - 08/31/2018 12:08 EST Upper Extremity Right UE Active ROM : WFL Right UE Strength : WFL Left UE Active ROM : WFL Left UE Strength : WFL Right UE Strength : WFL Left UE Strength : WFL TEJAL ROBERTS, PT - 08/31/2018 12:08 EST Lower Extremity RLE Active ROM : Impaired RLE Passive ROM : Impaired Right LE Strength : Impaired LLE Active ROM : WFL Left LE Strength : WFL Lower Extremity Comment : AROM 10-70 R Knee PROM 0-90 R knee grossly R LE MMT 2+- 3- /5 TEJAL ROBERTS, PT - 08/31/2018 12:08 EST Functional Mobility Mobility Grid Bed Roll Left : Rehab Minimal assistance Bed Scooting : Rehab Minimal assistance Supine to Sit : Rehab Minimal assistance Sit to Stand : Rehab Minimal assistance Stand to Sit : Rehab Minimal assistance TEJAL ROBERTS, PT - 08/31/2018 12:08 EST Bed Mobility Scooting Device : Cloth under pad Supine to Sit Device : Rails, Other: leg latex fashions designer Sit to Stand Device : Belt, gait, Walker, front wheel Stand to Sit Device : Belt, gait, Walker, front wheel TEJAL ROBERTS, PT - 08/31/2018 12:08 EST AM PAC Basic Mobility Turning Over in Bed : Unable Sit Down On/Stand Up From Chair w/ Arms : Unable Move Back Lying to Sitting Side of Bed : Unable Moving To/From a Bed to Chair : A little Need to Walk in Hospital Room : A little Climbing 3-5 Steps with a Railing : A little AM-[facility] Basic Mobility Raw Score : 12 AM-[facility] Basic Mobility Standardized Score : 35.33 AM-[facility] Basic Mobility CMS 0-100% Score : 68.66 % TEJAL ROBERTS, PT - 08/31/2018 12:08 EST Image 1 - Images currently included in the form version of this document have not been included in the text rendition version of the form. Functional Limitation Reporting, PT Functional Limitation Visit Type, PT : Initial evaluation Severity Determination Method, PT : Clinical Judgment, AM [facility] Basic Mobility Mobility G8978 - Current Mod, PT : 60 - 79% impaired, limited or restricted (CL) Mobility G8979 - Proj Goal Mod, PT : 40 - 59% impaired, limited or restricted (CK) TEJAL ROBERTS, PT - 08/31/2018 12:08 EST Gait Training/Assessment, PT Stair(s) Ascend/Descend Training : Yes Number of Stairs : 1 Stair Height : 6 inch Stair(s) Assist Devices : Gait belt, Walker, front wheel Stair Training Comment : retro step ascend ARMANDO TEJAL, PT - 08/31/2018 13:04 EST Weight Bearing Order Status : WBAT R LE Weight Bearing Status Maintained : Yes Weight Bearing Status : As tolerated right lower extremity Gait Assistance Level : Supervision Walking Distance : approx 70 ft Ambulatory Devices : Gait belt, Walker, front wheel, Other: Plascencia/ drain Gait Deviations : Yes Gait Training Comment : pt with full body ext to adv R LE constant cues to lift R LE forward with hip/knee flex and stop truck ext TEJAL ROBERTS, PT - 08/31/2018 12:08 EST Cognition Assessment, PT Orientation : Oriented x 4 Safety/Judgment Comment : fair Follows Basic Command Assessment : yes, with gait needed repetition Attention Assessment : Present TEJAL ROBERTS, PT - 08/31/2018 12:08 EST Edu Topics Physical Therapy Education Grid Balance Training : Needs further teaching Bed Mobility Training : Needs further teaching Gait Training : Needs further teaching Home Program/Exercises : Verbalizes understanding, Returns demonstration, Needs reinforcement Role of Physical Therapy : Verbalizes understanding, Needs reinforcement Safety : Returns demonstration, Needs reinforcement Therapeutic Exercises : Returns demonstration, Needs reinforcement Transfer Training : Returns demonstration, Needs reinforcement Use of Assistive Device : Returns demonstration, Needs reinforcement TEJAL ROBERTS, PT - 08/31/2018 12:08 EST Indication Assesessment, PT Physical Therapy Indicated : Yes PT Problem List : Impaired, bed mobility, Impaired, endurance tolerance, Impaired, gait, Impaired, joint mobility, Impaired, stair mobility, Impaired, strength, Impaired, transfers, Pain limiting function Potential Barriers To Therapy : Pain Rehabilitation Potential : Good TEJAL ROBERTS, PT - 08/31/2018 12:08 EST Plan of Care, PT PT Tx Plan/Goals Established w Patient : Yes PT Frequency Rehab : Daily, twice (bid) PT Duration Rehab : Seven Days PT Treatments Planned : Bed mobility training, Gait training, Pain management, Safety education, Stair training, Therapeutic exercises, Transfer training TEJAL ROBERTS, PT - 08/31/2018 12:08 EST Half-Way Goals Mobility/Bed Mobility LTG PT Grid Goal #1 Goal #2 Activity : Supine to sit Sit to stand Assist : Supervision or set-up Supervision or set-up Equipment : Bed, hospital Walker, front wheel Date to Meet : 09/07/2018 EST 09/07/2018 EST Goal Status : Intial Goal Intial Goal TEJAL ROBERTS, PT - 08/31/2018 12:08 EST TEJAL ROBERTS, PT - 08/31/2018 12:08 EST Ambulation LTG Grid Goal #1 Device : Walker, front wheel Distance : 150 ft Assist : Supervision or set-up Date to Meet : 09/07/2018 EST Goal Status : Intial Goal TEJAL ROBERTS, PT - 08/31/2018 12:08 EST Stairs LTG Grid Goal #1 Device : Walker, front wheel Number of Steps : 1 Handrail(s) : No handrails Assist : Supervision or set-up Date to Meet : 09/07/2018 EST Goal Status : Intial Goal Comment : retro step TEJAL ROBERTS PT - 08/31/2018 12:08 EST Treatment Note Subjective Comment : agreed to PTx /OTx evals and treatment Patient's Response to Treatment : good Additional Objective Information : AROM R Knee 10-70 PROM R Knee 0-90 walked 70 ft with POOR gait pattern as pt did not use hip or knee motion to adv R LE did step in retro fashion joint ice skating coach NOT present Assessment : good effort, but struggled with bed mob and gait ROM limited by pain 1st day post op needs review of HEP, gait and stairs Joint LARD MAKER needs to be present Plan for Treatment : review gait and HEP in PM along with step WITH JOINT LARD MAKER present TEJAL ROBERTS PT - 08/31/2018 12:08 EST Pain Assessment Pain Scaled Used : 0-10 Pain scale Pain Score Pre-Intervention : 4 Location : Knee, right Onset : Constant TEJAL ROBERTS, PT - 08/31/2018 12:08 EST Image 1 - Images currently included in the form version of this document have not been included in the text rendition version of the form. Anticipated Discharge Needs, OT/PT Anticipated Discharge to : Home, with family care, Home, with home health Anticipated Home Equipment : Walker Recommend Continued Therapy at Discharge : Yes Walker : Walker, front wheel TEJAL ROBERTS, PT - 08/31/2018 12:08 EST [facility] PT Charges PT Therap. Exercise 15 min : 2 Gait Training Each 15 Min : 1 PT Eval Low Complexity : 1 TEJAL ROBERTS, PT - 08/31/2018 12:08 EST Electronically signed by Amira, [employer]al[employer] Conversion Safety Instruction Police Officer Cerner at 10/27/2022 8:13 PM CDT documented in this encounter Plan of Treatment Not on file documented as of this encounter Visit Diagnoses Not on filedocumented in this encounter
--- OUTSIDE RECORDS SUMMARY | 2025-05-03 10:26 | XMS_ITS | Encounter Summary ---
Author Organization [employer] ([place], [place], [place], [place]) Address [address] [place] [address] Care Team Providers Care Gaming Table Operator Name Role Phone Unavailable Primary Care Provider Unavailabl e Encounter Details Date Type Department Care Team (Late st Contact Info) Description 08/30/2018 Transcribed Document [facility] [place] [facility] [place] [address] ProviderTree MD [address] [place] [address] Social History Tobacco Use Types Packs/Day Years Used Date Smoking Tobacco: Never Assessed Sex and Gender Information Value Date Recorded Sex Assigned at Male 01/06/2022 8:27 PM CDT Legal Sex Male 8:27 PM CDT Gender Identity Male 01/06/2022 8:27 PM CDT Sexual Orientation Not on file documented as of this encounter Miscellaneous Notes * Cerner Conversion Note - Tree ProviderMD - 08/30/2018 7:00 AM 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
--- OUTSIDE RECORDS SUMMARY | 2025-05-03 10:27 | XMS_ITS | Encounter Summary ---
Author Organization Healthcare Address [address] [place] [address] Care Team Providers Care Machine Leather Trimmer Name Role Phone Parrish Thurman MD Primary Care Provider + [phone] Encounter Details Date Type Department Care Team (Late st Contact Info) Description 03/21/2025 Orders Only [facility] Hematology/BMT and Cellular Therapy Program [address] [place] [address] [place] [address] Natalie Andrews RN [facility] Multiple myeloma not having achieved remission (CMS/HCC) (Primary Dx) Social History Tobacco Use [...] any time in the past 12 m [facility], were you homeless or living in [...] drink first t kiet in the morning ([employer]MENT[employer]CR[employer]ARY) to steady your nerves or to get [...] Start Date Job End Date 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 file Not on file Not on file documented as of this encounter Plan of Treatment Upcoming Encounters Date Type Department Care Team (Late st Contact Info) Description 05/28/2025 1:00 PM EST Office Visit Medical Office Building [facility] [address], [address] [place] [address] Afshan Bryan MD [address] [place] [address] documented as of this encounter Goals Goal Patient Goal Type Associated Problems Recent Progress Patient-Stated? Author Autogenerat ed Goal Care Plan Autogenerated Problem No Rajiv Garcias MD documented as of this encounter Results * (ABNORMAL) IG Profile (03/22/2025 9:18 AM EDT) IGA 43(L) 75 - 400 mg/dL 03/22/2025 10:42 AM EDT [facility] IGG 508(L) 720 - 1,589 mg/dL 03/22/2025 10:42 AM EDT [facility] IGM 14(L) 35 - 225 mg/dL 03/22/2025 10:42 AM EDT [facility] Blood Venous blood specimen / Unknown Venipuncture / Unknown 03/22/2025 9:18 AM EDT 03/22/2025 9:36 AM EDT us Mohit Villarreal MD LAB BLOOD ORDERABLES Final Result [facility] [address] [place] [address] documented in this encounter Visit Diagnoses Diagnosis Multiple myeloma not having achieved remission (CMS/HCC)- Primary documented in this encounter Additional Health Concerns Active Problems Noted Date Diagnosed Date Autogenerated Problem 10/19/2024 Assessment Noted Time A fall risk assessment has been complete d for the patient 03/08/2025 2:05 PM EDT A Body Mass Index follow-up plan has been documented for the patient 03/08/2025 3:50 PM EDT documented as of this encounter Care Teams Machine Leather Trimmer Relationship Specialty Start Date End Date Parrish Thurman MD [address] [place] [id number] PCP - General 10/19/24 documented as of this encounter
--- OUTSIDE RECORDS SUMMARY | 2025-05-03 10:27 | XMS_ITS | Data Portability ---
Author Organization [place] - [facility] Address [address] [place] [address] Care Team Providers Care Chassis Wirer Name Role Phone FUNMI BIRD Primary Care Provider [phone] Assessment No assessment recorded. Plan of Treatment Reminders Order Date Submit Date Provider Last Modified By Organization Details Last Modified Time Details Appointments RECHECK 2024 09:15A Luis PATEL MD Not available Not available Not available Lab urinalysi s panel, auto 2023 024 [facility], [address], [place], [address], 05/21/2024 16:08:40 urinalysi s panel, auto 2023 024 [facility], [address], [place], [address], 11/22/2023 07:15:30 PSA, total + free, serum or plasma [address] (Lab), [address] [place] [address] [address], [place], [address], 09/10/2022 08:13:18 urinalysi s panel, auto 2021 022 [facility], [address], [place], [address], 02/11/2022 18:57:55 urinalysi s panel, auto 2021 022 [email or web address], [address], [place], [address], 07/28/2021 14:17:42 Referral None recorded. Procedures None recorded. Surgeries None recorded. Imaging None recorded. Medication Orders None recorded. Patient TargetsNo targets recorded. Patient Instructions Encounter Date Encounter Id Patient Instructions Last Modified By Organization Details Last Modified Time 07/28/2021 [id number] continue to foll ow PSA conservatively. His hematospermia should continue to improve [email or web address] Not available 07/28/2021 14:17:52 02/02/2022 [id number] healthy together [email or web address] Not availabl e 02/11/2022 18:57:55 a we'll call the patient with PSA results and further recommendations tslabaugh Not available 02/11/2022 18:57:36 05/15/2024 [id number] learning about healthy weight tslabaugh Not available 05/21/2024 16:08:40 Reason for Referral None Reported. Results Created Date Observation Date Name Description Value Unit Range Abnormal Flag Note LastModifiedBy Organization Detail LastModifiedTime 07/28/1907/28/2021 urina lysis panel , auto Unknown Analyte Clean Catch Not Available [facility] [address], [place], [address], 07/28/2021 13:34:23 07/28/19 22 07/28/2021 urina lysis panel , auto Unknown Analyte Yellow Not Available [facility] [address], [place], [address], 07/28/2021 13:34:23 07/28/19 22 07/28/2021 urina lysis panel , auto Unknown Analyte Clear Not Available [facility] [address], [place], [address], 07/28/2021 13:34:23 07/28/19 22 07/28/2021 urina lysis panel , auto Unknown Analyte 1.015 Not Available [facility] [address], [place], [address], 07/28/2021 13:34:23 07/28/19 22 07/28/2021 urina lysis panel , auto Unknown Analyte 1.003- 1.035 Not Available [facility] [address], [place], [address], 07/28/2021 13:34:23 07/28/19 22 07/28/2021 urina lysis panel , auto Unknown Analyte 5.0 Not Available [facility] [address], [place], [address], 07/28/2021 13:34:23 07/28/19 22 07/28/2021 urina lysis panel , auto Unknown Analyte 5.0-8. 0 Not Available [facility] [address], [place], [address], 07/28/2021 13:34:23 07/28/19 22 07/28/2021 urina lysis panel , auto Unknown Analyte Negati ve Not Available [facility] [address], [place], [address], 07/28/2021 13:34:23 07/28/19 22 07/28/2021 urina lysis panel , auto Unknown Analyte Negati ve Not Available [facility] [place] [facility] [address], [place], [address], 07/28/2021 13:34:23 07/28/19 22 07/28/2021 urina lysis panel , auto Unknown Analyte Negati ve Not Available [facility] [place] [facility] [address], [place], [address], 07/28/2021 13:34:23 07/28/19 22 07/28/2021 urina lysis panel , auto Unknown Analyte Negati ve Not Available [facility] [address], [place], [address], 07/28/2021 13:34:23 07/28/19 22 07/28/2021 urina lysis panel , auto Unknown Analyte Negati ve Not Available [facility] [address], [place], [address], 07/28/2021 13:34:23 07/28/19 22 07/28/2021 urina lysis panel , auto Unknown Analyte Negati ve Not Available [facility] [place] [facility] [address], [place], [address], 07/28/2021 13:34:23 07/28/19 22 07/28/2021 urina lysis panel , auto Unknown Analyte Normal Not Available [facility] [address], [place], [address], 07/28/2021 13:34:23 07/28/19 22 07/28/2021 urina lysis panel , auto Unknown Analyte Normal Not Available [facility] [address], [place], [address], 07/28/2021 13:34:23 07/28/19 22 07/28/2021 urina lysis panel , auto Unknown Analyte Negati ve Not Available [facility] [address], [place], [address], 07/28/2021 13:34:23 07/28/19 22 07/28/2021 urina lysis panel , auto Unknown Analyte Negati ve Not Available [facility] [address], [place], [address], 07/28/2021 13:34:23 07/28/19 22 07/28/2021 urina lysis panel , auto Unknown Analyte Normal Not Available [facility] [address], [place], [address], 07/28/2021 13:34:23 07/28/19 22 07/28/2021 urina lysis panel , auto Unknown Analyte Normal 1 mg/dl Not Available [facility] [address], [place], [address], 07/28/2021 13:34:23 07/28/19 22 07/28/2021 urina lysis panel , auto Unknown Analyte Negati ve Not Available [facility] [address], [place], [address], 07/28/2021 13:34:23 07/28/19 22 07/28/2021 urina lysis panel , auto Unknown Analyte Negati ve Not Available [facility] [address], [place], [address], 07/28/2021 13:34:23 07/28/19 22 07/28/2021 urina lysis panel , auto Unknown Analyte Negati ve Not Available [facility] [place] [facility] [address], [place], [address], 07/28/2021 13:34:23 07/28/19 22 07/28/2021 urina lysis panel , auto Unknown Analyte Negati ve Not Available [facility] [place] [facility] [address], [place], [address], 07/28/2021 13:34:23 02/03/20 22 02/02/2022 urina lysis panel , auto Unknown Analyte Clean Catch Not Available [facility] [place] [facility] [address], [place], [address], 02/02/2022 15:01:27 02/03/20 22 02/02/2022 urina lysis panel , auto Unknown Analyte Yellow Not Available [facility] [address], [place], [address], 02/02/2022 15:01:27 02/03/20 22 02/02/2022 urina lysis panel , auto Unknown Analyte Clear Not Available [facility] [place] [facility] [address], [place], [address], 02/02/2022 15:01:27 02/03/20 22 02/02/2022 urina lysis panel , auto Unknown Analyte 1.015 Not Available [facility] With [place] [address] [facility] [address], [place], [address], 02/02/2022 15:01:27 02/03/20 22 02/02/2022 urina lysis panel , auto Unknown Analyte 1.003- 1.035 Not Available [facility] [place] [facility] With [place] [address], [place], [address], 02/02/2022 15:01:27 02/03/20 22 02/02/2022 urina lysis panel , auto Unknown Analyte 5.0 Not Available [facility] [place] [address], [place], [address], 02/02/2022 15:01:27 02/03/20 22 02/02/2022 urina lysis panel , auto Unknown Analyte 5.0-8. 0 Not Available [facility] With [place] [address], [place], [address], 02/02/2022 15:01:27 02/03/20 22 02/02/2022 urina lysis panel , auto Unknown Analyte Negati ve Not Available [facility] With [address], [place], [address], 02/02/2022 15:01:27 02/03/20 22 02/02/2022 urina lysis panel , auto Unknown Analyte Negati ve Not Available [facility] [place] [facility] With [place] [address], [place], [address], 02/02/2022 15:01:27 02/03/20 22 02/02/2022 urina lysis panel , auto Unknown Analyte Negati ve Not Available [facility] [place] [facility] With [place] [address], [place], [address], 02/02/2022 15:01:27 02/03/20 22 02/02/2022 urina lysis panel , auto Unknown Analyte Negati ve Not Available [facility] [place] [facility] [address], [place], [address], 02/02/2022 15:01:27 02/03/20 22 02/02/2022 urina lysis panel , auto Unknown Analyte Negati ve Not Available [facility] [place] [facility] [address], [place], [address], 02/02/2022 15:01:27 02/03/20 22 02/02/2022 urina lysis panel , auto Unknown Analyte Negati ve Not Available [facility] [place] [facility] [address], [place], [address], 02/02/2022 15:01:27 02/03/20 22 02/02/2022 urina lysis panel , auto Unknown Analyte Normal Not Available [facility] [address], [place], [address], 02/02/2022 15:01:27 02/03/20 22 02/02/2022 urina lysis panel , auto Unknown Analyte Normal Not Available [facility] [address], [place], [address], 02/02/2022 15:01:27 02/03/20 22 02/02/2022 urina lysis panel , auto Unknown Analyte Negati ve Not Available [facility] [place] [facility] [address], [place], [address], 02/02/2022 15:01:27 02/03/20 22 02/02/2022 urina lysis panel , auto Unknown Analyte Negati ve Not Available [facility] [address], [place], [address], 02/02/2022 15:01:27 02/03/20 22 02/02/2022 urina lysis panel , auto Unknown Analyte Normal Not Available [facility] [address], [place], [address], 02/02/2022 15:01:27 02/03/20 22 02/02/2022 urina lysis panel , auto Unknown Analyte Normal 1 mg/dl Not Available [facility] [address], [place], [address], 02/02/2022 15:01:27 02/03/20 22 02/02/2022 urina lysis panel , auto Unknown Analyte Negati ve Not Available [facility] [address], [place], [address], 02/02/2022 15:01:27 02/03/20 22 02/02/2022 urina lysis panel , auto Unknown Analyte Negati ve Not Available [facility] [address], [place], [address], 02/02/2022 15:01:27 02/03/20 22 02/02/2022 urina lysis panel , auto Unknown Analyte Negati ve Not Available [facility] [place] [facility] [address], [place], [address], 02/02/2022 15:01:27 02/03/20 22 02/02/2022 urina lysis panel , auto Unknown Analyte Negati ve Not Available [facility] [place] [facility] [address], [place], [address], 02/02/2022 15:01:27 11/15/19 24 11/15/2023 urina lysis panel , auto Unknown Analyte Clean Catch Not Available [facility] [place] [facility] [address], [place], [address], 11/15/2023 15:46:18 11/15/19 24 11/15/2023 urina lysis panel , auto Unknown Analyte Yellow Not Available [facility] [address], [place], [address], 11/15/2023 15:46:18 11/15/19 24 11/15/2023 urina lysis panel , auto Unknown Analyte Clear Not Available [facility] [address], [place], [address], 11/15/2023 15:46:18 11/15/19 24 11/15/2023 urina lysis panel , auto Unknown Analyte 1.010 Not Available [facility] [address], [place], [address], 11/15/2023 15:46:18 11/15/19 24 11/15/2023 urina lysis panel , auto Unknown Analyte 1.003- 1.035 Not Available [facility] [place] [facility] [address], [place], [address], 11/15/2023 15:46:18 11/15/19 24 11/15/2023 urina lysis panel , auto Unknown Analyte 6.0 Not Available [facility] [address], [place], [address], 11/15/2023 15:46:18 11/15/19 24 11/15/2023 urina lysis panel , auto Unknown Analyte 5.0-8. 0 Not Available [facility] [place] [facility] [address], [place], [address], 11/15/2023 15:46:18 11/15/19 24 11/15/2023 urina lysis panel , auto Unknown Analyte Negati ve Not Available [facility] [place] [facility] [address], [place], [address], 11/15/2023 15:46:18 11/15/19 24 11/15/2023 urina lysis panel , auto Unknown Analyte Negati ve Not Available [facility] [place] [facility] [address], [place], [address], 11/15/2023 15:46:18 11/15/19 24 11/15/2023 urina lysis panel , auto Unknown Analyte Negati ve Not Available [facility] [place] [facility] [address], [place], [address], 11/15/2023 15:46:18 11/15/19 24 11/15/2023 urina lysis panel , auto Unknown Analyte Negati ve Not Available [facility] [place] [facility] [address], [place], [address], 11/15/2023 15:46:18 11/15/19 24 11/15/2023 urina lysis panel , auto Unknown Analyte Negati ve Not Available [facility] [place] [facility] [address], [place], [address], 11/15/2023 15:46:18 11/15/19 24 11/15/2023 urina lysis panel , auto Unknown Analyte Negati ve Not Available [facility] [address], [place], [address], 11/15/2023 15:46:18 11/15/19 24 11/15/2023 urina lysis panel , auto Unknown Analyte Normal Not Available [facility] [address], [place], [address], 11/15/2023 15:46:18 11/15/19 24 11/15/2023 urina lysis panel , auto Unknown Analyte Normal Not Available [facility] [address], [place], [address], 11/15/2023 15:46:18 11/15/19 24 11/15/2023 urina lysis panel , auto Unknown Analyte Negati ve Not Available [facility] [address], [place], [address], 11/15/2023 15:46:18 11/15/19 24 11/15/2023 urina lysis panel , auto Unknown Analyte Negati ve Not Available [facility] [place] [facility] [address], [place], [address], 11/15/2023 15:46:18 11/15/19 24 11/15/2023 urina lysis panel , auto Unknown Analyte 4 mg/dl Not Available [facility] [place] [facility] [address], [place], [address], 11/15/2023 15:46:18 11/15/19 24 11/15/2023 urina lysis panel , auto Unknown Analyte Normal 1 mg/dl Not Available [facility] [place] [facility] [address], [place], [address], 11/15/2023 15:46:18 11/15/19 24 11/15/2023 urina lysis panel , auto Unknown Analyte Negati ve Not Available [facility] [place] [facility] [address], [place], [address], 11/15/2023 15:46:18 11/15/19 24 11/15/2023 urina lysis panel , auto Unknown Analyte Negati ve Not Available [facility] [place] [facility] [address], [place], [address], 11/15/2023 15:46:18 11/15/19 24 11/15/2023 urina lysis panel , auto Unknown Analyte 50 Carroll/ul Not Available [facility] [place] [facility] [address], [place], [address], 11/15/2023 15:46:18 11/15/19 24 11/15/2023 urina lysis panel , auto Unknown Analyte Negati ve Not Available [facility] [place] [facility] [address], [place], [address], 11/15/2023 15:46:18 05/15/20 24 05/15/2024 urina lysis panel , auto Unknown Analyte Clean Catch Not Available [facility] [place] [facility] [address], [place], [address], 05/15/2024 14:31:19 05/15/20 24 05/15/2024 urina lysis panel , auto Unknown Analyte Yellow Not Available [facility] [address], [place], [address], 05/15/2024 14:31:19 05/15/2005/15/2024 urina lysis panel , auto Unknown Analyte Clear Not Available [facility] [address], [place], [address], 05/15/2024 14:31:19 05/15/20 24 05/15/2024 urina lysis panel , auto Unknown Analyte 1.015 Not Available [facility] [address], [place], [address], 05/15/2024 14:31:19 05/15/20 24 05/15/2024 urina lysis panel , auto Unknown Analyte 1.003- 1.035 Not Available [facility] [place] [facility] [address], [place], [address], 05/15/2024 14:31:19 05/15/20 24 05/15/2024 urina lysis panel , auto Unknown Analyte 5.0 Not Available [facility] [address], [place], [address], 05/15/2024 14:31:19 05/15/20 24 05/15/2024 urina lysis panel , auto Unknown Analyte 5.0-8. 0 Not Available [facility] [place] [facility] [address], [place], [address], 05/15/2024 14:31:19 05/15/20 24 05/15/2024 urina lysis panel , auto Unknown Analyte 25 Glory/ul Trace Not Available [facility] [place] [facility] [address], [place], [address], 05/15/2024 14:31:19 05/15/2005/15/2024 urina lysis panel , auto Unknown Analyte Negati ve Not Available [facility] [place] [facility] [address], [place], [address], 05/15/2024 14:31:19 05/15/20 24 05/15/2024 urina lysis panel , auto Unknown Analyte Negati ve Not Available [facility] [place] [facility] [address], [place], [address], 05/15/2024 14:31:19 05/15/20 24 05/15/2024 urina lysis panel , auto Unknown Analyte Negati ve Not Available [facility] [place] [facility] [address], [place], [address], 05/15/2024 14:31:19 05/15/20 24 05/15/2024 urina lysis panel , auto Unknown Analyte 30 mg/dl (+) Not Available [facility] [place] [facility] [address], [place], [address], 05/15/2024 14:31:19 05/15/20 24 05/15/2024 urina lysis panel , auto Unknown Analyte Negati ve Not Available [facility] [place] [facility] [address], [place], [address], 05/15/2024 14:31:19 05/15/20 24 05/15/2024 urina lysis panel , auto Unknown Analyte Normal Not Available [facility] [address], [place], [address], 05/15/2024 14:31:19 05/15/20 24 05/15/2024 urina lysis panel , auto Unknown Analyte Normal Not Available [facility] [address], [place], [address], 05/15/2024 14:31:19 05/15/20 24 05/15/2024 urina lysis panel , auto Unknown Analyte Negati ve Not Available [facility] With [facility] [address], [place], [address], 05/15/2024 14:31:19 05/15/20 24 05/15/2024 urina lysis panel , auto Unknown Analyte Negati ve Not Available [facility] [place] [facility] [address], [place], [address], 05/15/2024 14:31:19 05/15/20 24 05/15/2024 urina lysis panel , auto Unknown Analyte 1 mg/dl Not Available [facility] [place] [facility] [address], [place], [address], 05/15/2024 14:31:19 05/15/20 24 05/15/2024 urina lysis panel , auto Unknown Analyte Normal 1 mg/dl Not Available [facility] [place] [facility] [address], [place], [address], 05/15/2024 14:31:19 05/15/20 24 05/15/2024 urina lysis panel , auto Unknown Analyte Negati ve Not Available [facility] [place] [facility] [address], [place], [address], 05/15/2024 14:31:19 05/15/2005/15/2024 urina lysis panel , auto Unknown Analyte Negati ve Not Available [facility] With [facility] [address], [place], [address], 05/15/2024 14:31:19 05/15/20 24 05/15/2024 urina lysis panel , auto Unknown Analyte Negati ve Not Available [facility] [place] [facility] [address], [place], [address], 05/15/2024 14:31:19 05/15/20 24 05/15/2024 urina lysis panel , auto Unknown Analyte Negati ve Not Available [facility] [place] [facility] [address], [place], [address], 05/15/2024 14:31:19 Result Notes None recorded. Problems No Known Problems Procedures Surgical History Date Name Laterality Status Provider Name and Address Organization Details Recorded Time 01/26/20 20 Aspiration Joint/Bursa, [place] completed BEATRIZ RAWLS MD [address] [place], [address], [facility] 01/26/2020 10:04:07 12/20/19 Aspiration Joint/[place]ursa[place] completed BEATRIZ RAWLS MD [address] [place], [address], [facility] 12/20/2019 10:52:55 08/30/19 19 TOTAL KNEE ARTHROPLASTY (SURG) completed Tootielynn Tavares [facility] 09/12/2018 11:39:06 02/05/20 18 Injection - Joint/Bursa, [place] completed BEATRIZ RAWLS MD [address] [place], [address], [facility] 02/04/2018 08:30:25 10/28/19 18 Injection - Joint/Bursa, [place] completed BEATRIZ RAWLS MD [address] [place], [address], [facility] 10/27/2017 08:52:40 09/11/19 18 Injection - Joint/Bursa, [place] completed BEATRIZ RAWLS MD [address] [place], [address], [facility] 09/10/2017 12:04:55 Imaging Results None recorded. Procedure Notes None recorded. Medical Equipment None Reported. Allergies Allergen ID Allergen Name Allergen Category Reaction Reaction Severity Criticality Documentation Date Start Date Code Code System Note Provider Name and Address Organization Details Recorded Time 934256 doxycycli ne Not available hives Not available Not available 02/03/2021 3640 [facility]58 Medications Name Sig Start Date Stop Date Status Note LastModified by Organization Details LastModified Time clindamycin HCl 300 mg capsule TAKE 1 CAPSULE BY MOUTH THREE TIMES DAILY 05/15 completed Not Available Not Available Not Available cetirizine 10 mg tablet active Not Available Not Available Not Available azithromyci n 250 mg tablet 08/18 completed Not Available Not Available Not Available benzonatate 200 mg capsule 08/18 completed Not Available Not Available Not Available meloxicam 15 mg tablet TAKE 1 TABLET BY MOUTH ONCE DAILY NEEDED active Not Available Not Available No t Available probenecid 500 mg-colchici ne 0.5 mg tablet TAKE 1 TABLET BY MOUTH ONCE DAILY FOR 90 DAYS active Not Available Not Available No t Available ciprofloxac in 250 mg tablet 06/16 completed Not Available Not Available Not Available ciprofloxac in 500 mg tablet TAKE 1 TABLET BY MOUTH EVERY 12 HOURS TILL ALL ARE TAKEN 06/16 completed Not Available Not Available Not Available sulfamethox azole 800 mg-trimetho prim 160 mg tablet TAKE 1 TABLET BY MOUTH EVERY 12 HOURS DIRECTED FOR 15 DAYS 03/11 completed Not Available Not Available Not Available triamterene 37.5 mg-hydrochl orothiazide 25 mg capsule TAKE 1 CAPSULE BY MOUTH ONCE DAILY active Not Available Not Available No t Available oxycodone-a cetaminophe n 5 mg-325 mg tablet Take 2 tablets every 6 hours by oral route as needed for 7 days. 10/05 completed Not Available Not Available Not Available amoxicillin 875 mg tablet 06/16 completed Not Available Not Available Not Available tamsulosin 0.4 mg capsule TAKE 1 CAPSULE BY MOUTH ONCE DAILY FOR 90 DAYS active Not Available Not Available No t Available doxycycline monohydrate 100 mg capsule Take 1 capsule twice a day by oral route for 21 days. 07/28 completed Not Available Not Available Not Available Cartia XT 120 mg capsule,ext ended release active Not Available Not Available Not Available cephalexin 500 mg capsule Take 1 capsule day before dental procedure , 2 capsules 1 hour prior to dental procedure , and 1 capsule day after dental procedure . 01/16 completed Not Available Not Available Not Available oseltamivir 75 mg capsule 03/11 completed Not Available Not Available Not Available ibuprofen 200 mg tablet Take 2 tablets as needed by oral route. active Not Available Not Available No t Available triamterene 37.5 mg-hydrochl orothiazide 25 mg tablet TAKE 1 TABLET BY MOUTH ONCE DAILY FOR 30 DAYS active Not Available Not Available No t Available omeprazole 20 mg capsule,del ayed release TAKE 1 CAPSULE BY MOUTH ONCE DAILY active Not Available Not Available No t Available montelukast 10 mg tablet active Not Available Not Available Not Available levalbutero l 1.25 mg/3 mL solution for nebulizatio n USE 1 VIAL IN NEBULIZER EVERY 4 HOURS NEEDED active Not Available Not Available No t Available levofloxaci n 500 mg tablet 10/21 completed Not Available Not Available Not Available zolpidem 10 mg tablet TAKE 1 TABLET BY MOUTH ONCE DAILY AT BEDTIME active Not Available Not Available No t Available methylpredn isolone 4 mg tablets in a dose pack 08/18 completed Not Available Not Available Not Available albuterol sulfate HFA 90 mcg/actuati on aerosol inhaler INHALE 1 PUFF BY MOUTH 4 TIMES DAILY NEEDED FOR WHEEZING OR SHORTNESS OF BREATH active Not Available Not Available No t Available fluticasone propionate 50 mcg/actuati on nasal spray,suspe nsion USE 1 SPRAY(S) IN EACH NOSTRIL ONCE DAILY FOR 30 DAYS active Not Available Not Available No t Available Lovenox 40 mg/0.4 mL subcutaneou s syringe Inject 0.4 mL every day by subcutane ous route. 10/05 completed Not Available Not Available Not Available finasteride 5 mg tablet Take 1 tablet every day by oral route for 90 days. active Not Available Not Available No t Available loratadine 10 mg tablet active Not Available Not Available Not Available Pneumovax-2 3 25 mcg/0.5 mL injection syringe 08/18 completed Not Available Not Available Not Available rosuvastati n 5 mg tablet active Not Available Not Available Not Available rosuvastati n 10 mg tablet 08/18 completed Not Available Not Available Not Available rosuvastati n 20 mg tablet TAKE 1 TABLET BY MOUTH ONCE DAILY active Not Available Not Available No t Available peg 3350-electr olytes 236 gram-22.74 gram-6.74 gram-5.86 gram solution DRINK 240ML BY MOUTH EVERY 10 MINUTES, FOLLOW MAILED INSTRUCTI ONS active Not Available Not Available No t Available omeprazole 20 mg tablet,manuel yed release TAKE 1 TABLET BY MOUTH ONCE DAILY FOR 30 DAYS active Not Available Not Available No t Available Breo Ellipta 100 mcg-25 mcg/dose powder for inhalation 08/18 completed Not Available Not Available Not Available Incruse Ellipta 62.5 mcg/actuati on powder for inhalation 08/01 completed Not Available Not Available Not Available Breo Ellipta 200 mcg-25 mcg/dose powder for inhalation 08/01 completed Not Available Not Available Not Available Spiriva Respimat 1.25 mcg/actuati on solution for inhalation Inhale 2 puffs every day by inhalatio n route. active Not Available Not Available No t Available Fluzone Quad 2017-(PF) 60 mcg(15 mcgx4)/0.5 mL intramuscul ar syringe 08/18 completed Not Available Not Available Not Available Trelegy Ellipta 100 mcg-62.5 mcg-25 mcg powder for inhalation INHALE 1 PUFF ONCE DAILY FOR 30 DAYS active Not Available Not Available No t Available Fluzone Quad (PF) 60 mcg (15 mcg x 4)/0.5 mL IM syringe PHARMACIS T ADMINISTE RED IMMUNIZAT ION ADMINISTE RED AT TIME OF DISPENSIN G active Not Available Not Available No t Available Fluzone Quad (PF) 60 mcg (15 mcg x 4)/0.5 mL IM syringe active Not Available Not Available N ot Available Trelegy Ellipta 200 mcg-62.5 mcg-25 mcg powder for inhalation active Not Available Not Available N ot Available BinaxNOW COVID-19 Ag Self Test kit USE MANUFACTU RER GUIDANCE ON PACKAGE active Not Available Not Available No t Available Paxlovid 300 mg (150 mg x 2)-100 mg tablets in a dose pack TAKE 3 TABLETS TOGETHER (TWO 150 MG NIRMATREL VIR TABLETS AND ONE 100 MG RITONAVIR TABLET) BY MOUTH TWICE DAILY FOR 5 DAYS. active Not Available Not Available No t Available Vitals Date Recorded Body height Body mass index (BMI) Body weight Provider Name and Address Organization Details Last Updated DateTime 07/28/2021 175.26 cm 34 kg/m2 012262.[address] [facility] 07/28/2021 13:33:24 Date Recorded Body height Body mass index (BMI) Body weight Provider Name and Address Organization Details Last Updated DateTime 08/03/2022 175.26 cm 34 kg/m2 589447.[address] [facility] 08/03/2022 14:43:36 Date Recorded Body height Body mass index (BMI) Body weight Provider Name and Address Organization Details Last Updated DateTime 11/15/2023 175.26 cm 36.9 kg/m2 937183.[address] [facility] 11/15/2023 15:45:04 Date Recorded Body height Body mass index (BMI) Body weight Provider Name and Address Organization Details Last Updated DateTime 02/02/2022 175.26 cm 34 kg/m2 727472.25 g Kandace White [facility] 02/02/2022 15:00:55 Date Recorded Body height Body mass index (BMI) Body weight Provider Name and Address Organization Details Last Updated DateTime 05/15/2024 175.26 cm 37.4 kg/m2 719455.87 g Erika Ragland [facility] 05/15/2024 14:26:17 Social History Question Answer Notes LastModified by Organizat ion Details LastModified Time Tobacco Smoking Status Former Smoker quit 26 years ago Tootie rooney, [facility] 09/10/2017 10:42:19 Accident Related Injury Yes [email or web address] Information not available 09/10/2017 What Is Your Level Of Caffeine Consumption? Moderate Coffee, Mountain Dew Daily Information not available 09/10/2017 How Much Tobacco Do You Chew? None [email or web address] Information not available 08/01/2018 Which Of Your Hands Is Dominant? Right [email or web address] Information not available 09/10/2017 Rate The Severity Of Your Symptoms: (0-10 With 0=none And 10=worst Possible) 10 4-1010 [email or web address] Information not available 05/06/2020 Date Of Injury: 04/22/2017 [email or web address] Information not available 10/27/2017 Have You Been Treated For This Problem Before? Yes Dr. Quijano [email or web address] Information not available 09/10/2017 How Long Have You Had These Symptoms? 04/22/2017 [email or web address] Information not available 01/26/2020 Will This Be Filed As Workers' Compensation? No [email or web address] Information not available 08/01/2018 Marital Status [email or web address] Informatio n not available 08/01/2018 What Was The Date Of Your Most Recent Tobacco Screening? 05/15/2024 [email or web address] Information not available 05/15/2024 How Much Tobacco Do You Smoke? No [email or web address] Information not available 03/06/2019 Has Tobacco Cessation Counseling Been Provided? No [email or web address] Information not available 06/06/2018 How Many Years Have You Smoked Tobacco? 15 [email or web address] Information not available 09/10/2017 Work Related Injury? Yes [email or web address] Information not available 09/10/2017 Sex: Unknown Functional Status Question Answer Note LastModified by Organizat ion Details LastModified Time Do you use any illicit or recreational drugs? No [email or web address] Information not available 06/06/2018 What is your level of alcohol consumption? Occasional [email or web address] Information not available 09/10/2017 Do you or have you ever used smokeless tobacco? Never used [email or web address] tobacco Information not available 03/06/2019 Are you currently employed? Yes [email or web address] Information not available 09/10/2017 What is your occupation? [employer] [email or web address] Information not available 09/10/2017 Do you or have you ever used e-cigarettes or vape? Never used electronic cigarettes [email or web address] Information not available 03/06/2019 Mental Status None recorded. Family History Nothing Reported. Medical History Condition Response Allergies/Hayfever Y Gout N Other N Anxiety/Depression N Thyroid Disease N Heart Conditions N Kidney Stones N Hernia N Migraines N COPD N Glaucoma N Pneumonia N Skin Problems N Immune System Disorder N Anesthesia Complications N Heart Attack ([place]) N Mental Illness N Neurological Problems N Diabetes N Rheumatic Fever N Bleeding Disorder N Arthritis Y Seizures/Epilepsy N Blood Clot N Tuberculosis N Genetic Disorder N AIDS/HIV N Cancer N Stroke N Asthma Y Blood Thinners N Alcohol Overuse/Alcohol Abuse N Sleep Apnea N High Cholesterol Y Liver Disease N Included as Review of Systems Y Hypertension Y Osteoporosis N Kidney Disease N Past Encounters Encounter ID Performer Location Encounter Start Date Encounter Closed Date Diagnosis/Indication Diagnosis SNOMED-CT Code Diagnosis ICD10 Code Diagnosis IMO Codes Diagnosis Note [id number] BEATRIZ QUIJANO [facility] [address] [place] [address] 08/18/2017 13:32:33 08/18/2017 16:11:15 Pain in right knee [id number] 27881 M25.561 Mr Brown has an osteochond ral injury to the medial femoral condyle. I recommend continued activity modificati on with restrictio n of extended weight bearing. I discussed treatment options to include corticoste roid injection, nsaids, and possible unicompart ment arthroplas ty right knee. [id number] BEATRIZ RAWLS MD [facility] [address] [place] [address] 09/10/2017 09:49:09 09/10/2017 12:25:15 Closed osteochondral fracture of distal femur 991809906 S72.434A [id number] BEATRIZ RAWLS MD [facility] [address] [place] [address] 10/13/2017 08:47:52 10/13/2017 09:45:32 Closed osteochondral fracture of distal femur 730898894 S72.434A Osteonecrosis 928571237 M87.789 [id number] BEATRIZ RAWLS MD [facility] [address] [place] [address] 10/27/2017 07:45:53 10/27/2017 08:53:59 Closed osteochondral fracture of distal femur 060977980 S72.434A Osteonecrosis 077115601 M87.390 [id number] BEATRIZ RAWLS MD [facility] [address] [place] [address] 02/04/2018 07:58:08 02/04/2018 08:53:29 Osteoarthritis of knee 534194010 M17.11 Idiopathic aseptic necrosis of bone 091350749 M87.803 [id number] BEATRIZ RAWLS MD [facility] [address] [address] 06/06/2018 08:50:20 06/06/2018 10:31:24 Osteoarthritis of knee 798207870 M17.11 [id number] BEATRIZ RAWLS MD [facility] [address] [place] [address] 08/01/2018 15:21:27 08/01/2018 17:27:09 Aseptic necrosis of bone 794332513 M90.153 [id number] MONALISA PATEL JR, MD [facility] [address] [facility] [address] [place] [address] 09/05/2018 14:58:57 09/05/2018 15:26:49 Retention of urine 647069903 R33.9 Benign pro static hyperplasia with outflow obstruction 630257534 N40.1 Prostate s pecific antigen above reference range 593882820 R97.20 [id number] BEATRIZ RAWLS MD [facility] [address] [place] [address] 09/12/2018 11:08:20 09/12/2018 12:25:00 History of right total knee replacement 6875289981 288682 Z96.626 [id number] MONALISA PATEL JR, MD [facility] [address] [facility] [place] [address] 09/12/2018 13:25:38 09/13/2018 10:45:48 Retention of urine 951260400 R33.9 Benign pro static hyperplasia with outflow obstruction 907524981 N40.1 Prostate s pecific antigen above reference range 633840034 R97.20 [id number] BEATRIZ RAWLS MD [facility] [address] [place] [address] 10/05/2018 10:50:29 10/05/2018 11:23:31 History of right total knee replacement 0570229297 297237 Z96.651 s/p Righ TKA on 08/30/2018 . [id number] BEATRIZ RAWLS MD [facility] [address] [place] [address] 10/21/2018 07:55:11 10/21/2018 08:37:33 History of right total knee replacement 5561062629 745126 Z96.651 s/p Righ TKA on 08/30/2018 . [id number] BEATRIZ RAWLS MD [facility] [address] [place] [address] 11/07/2018 10:15:46 11/07/2018 11:20:27 Replacement of total knee joint 997053208 Z96.991 [id number] BEATRIZ RAWLS MD [facility] [address] [place] [address] 11/25/2018 10:21:57 11/25/2018 11:24:20 History of right total knee replacement 8827685861 459770 Z96.651 s/p Righ TKA on 08/30/2018 . [id number] MD JUSTIN ASHBY JR [facility] [address] [facility] [address] [place] [address] 01/02/2019 16:02:25 01/04/2019 07:12:15 Prostate specific antigen above reference range 695134959 R97.20 Benign pro static hyperplasia with outflow obstruction 463921117 N40.1 [id number] BEATRIZ RAWLS MD [facility] [address] [place] [address] 01/11/2019 09:37:00 01/11/2019 11:02:41 History of right total knee replacement 6791593356 723217 Z96.651 s/p Right TKA on 08/30/2018 . [id number] MONALISA PATEL JR, MD [facility] [employer] [facility] [address] [facility] [address] [place] [address] 01/16/2019 15:18:29 01/18/2019 09:10:59 Prostate specific antigen above reference range 344885097 R97.20 Benign pro static hyperplasia with outflow obstruction 247075989 N40.1 [id number] BEATRIZ RAWLS MD [facility] [address] [place] [address] 03/06/2019 15:51:24 03/06/2019 16:51:53 Replacement of total knee joint 399174903 Z96.651 Peroneal t endinitis of right lower limb 5856802780 53617 M76.71 [id number] MONALISA PATEL JR, MD [facility] [employer] [facility] [address] [facility] [address] [place] [address] 03/27/2019 15:58:33 03/28/2019 12:38:38 Benign prostatic hyperplasia with outflow obstruction 538155363 N40.1 Prostate s pecific antigen above reference range 725850497 R97.20 [id number] BEATRIZ RAWLS MD [facility] [address] [place] [address] 09/20/2019 15:36:59 09/20/2019 16:57:49 History of right total knee replacement 1415637281 245335 Z96.651 s/p Right TKA on 08/30/2018 . [id number] BEATRIZ RAWLS MD [facility] [address] [place] [facility] 12/18/2019 12:45:22 12/18/2019 14:02:58 History of right total knee replacement 5502093978 100022 Z96.651 s/p Right TKA on 08/30/2018 . Iliotibial band friction syndrome of right knee 6182291979 46594 M76.31 [id number] BEATRIZ RAWLS MD [facility] [address] [place] [address] 12/20/2019 10:17:03 12/20/2019 10:55:23 History of total knee arthroplasty 0377635761 105 Z96.176 [id number] BEATRIZ RAWLS MD [facility] [address] [place] [address] 01/15/2020 10:02:15 01/15/2020 11:12:46 History of right total knee replacement 4618771097 267669 Z96.651 s/p Right TKA on 08/30/2018 . Pain in right knee 55776 65834 56667 M25.561 Z96.607 [id number] BEATRIZ RAWLS MD [facility] [address] [place] [address] 01/26/2020 08:34:09 01/26/2020 10:32:52 History of total knee arthroplasty 4509456052 105 Z96.651 Iliotibial band friction syndrome of right knee 7380019489 17503 M76.31 Pain in right knee 66461 24537 84201 M25.561 Z96.302 [id number] MONALISA PATEL JR, MD [facility] [address] [facility] [facility] [place] [address] 02/05/2020 13:04:04 02/06/2020 16:05:43 Benign prostatic hyperplasia with outflow obstruction 254518958 N40.1 Prostate s pecific antigen above reference range 932347606 R97.20 [id number] BEATRIZ RAWLS MD [facility] [address] [place] [address] 03/11/2020 10:26:34 03/11/2020 11:02:59 History of total knee arthroplasty 7552387229 105 Z96.651 Contractur e of right knee joint 3239175979 87929 M24.097 [id number] BEATRIZ RAWLS MD [facility] [address] [place] [address] 05/06/2020 12:36:28 05/06/2020 13:30:02 Contracture of right knee joint 6322509185 12190 M24.561 History of right total knee replacement 1780710329 391875 Z96.651 s/p Right TKA on 08/30/2018 . [id number] MONALISA PATEL JR, [facility] [address] [facility],[address] [address] 01/06/2021 13:48:46 01/16/2021 10:01:53 Prostatitis 1110833 N41.9 Benign pro static hyperplasia with outflow obstruction 608474775 N40.1 Prostate s pecific antigen above reference range 906933750 R97.20 [id number] MONALISA PATEL JR, MD [facility] N [facility] [address] [facility],[address] [address] 04/07/2021 12:54:04 04/08/2021 09:13:17 Prostatitis 8044554 N41.9 Benign pro static hyperplasia with outflow obstruction 987024365 N40.1 Prostate s pecific antigen above reference range 717434373 R97.20 [id number] MONALISA PATEL JR, MD [facility] N [facility] [address] [facility],[address] [address] 06/16/2021 13:13:31 06/16/2021 18:23:34 Prostatitis 1098519 N41.9 Prostate s pecific antigen above reference range 009128919 R97.20 [id number] MONALISA PATEL JR, MD [facility] [address] [facility],[address] [address] 07/28/2021 13:26:59 07/28/2021 17:46:52 Benign prostatic hyperplasia with outflow obstruction 312071114 N40.1 Prostatitis 7451691 N41. 9 Prostate s pecific antigen above reference range 041959114 R97.20 [id number] MONALISA PATEL JR, MD [facility] [place] [facility] [address] [place] [address] 02/02/2022 14:50:11 02/11/2022 20:32:18 Benign prostatic hyperplasia with outflow obstruction 088445223 N40.1 Prostate s pecific antigen above reference range [id number] R97.20 [id number] MONALISA PATEL JR, MD [facility] [place] [facility] [address] [place] [address] 08/03/2022 14:16:06 08/10/2022 04:11:29 Prostate specific antigen above reference range [id number] R97.20 Benign pro static hyperplasia with outflow obstruction [id number] N40.1 [id number] MONALISA PATEL JR, MD [facility] [place] [facility] [address] [place] [address] 11/15/2023 15:09:09 11/15/2023 18:17:39 Benign prostatic hyperplasia with outflow obstruction [id number] N40.1 Prostate s pecific antigen above reference range [id number] R97.20 Microscopic hematuria 19 [id number] R31.29 Plan for workup if persists [id number] MONALISA PATEL JR, MD [facility] [place] [facility] [address] [place] [address] 05/15/2024 14:06:39 05/22/2024 04:06:46 Prostate specific antigen above reference range [id number] R97.20 continue observatio n. If continue to rise consider MRI prostate Benign pro static hyperplasia with outflow obstruction [id number] N40.1 Health Concerns Section Related Observation LastModified by Organization Detai ls LastModified Time None Recorded Concern Status LastModified by Organization Details LastModified Time None Recorded Advance Directives Directive None Recorded Payers Insurance Date Sequence Insurance Name Policy Number Policy Yu Covered Member ID Yu Member ID Guarantor Name 08/01/2018 ANTONIA Rushjayda Paresh Brown 05/23/2024 1 [employer]: XIN [facility] [place] - MEDIBLUE ACCESS (MEDICARE REPLACEMENT REGIONAL PPO) [id number] Paresh Brown [id number] Paresh Brown 05/15/2024 1 [place] Paresh Brown [id number] Paresh Brown 05/15/2024 1 [facility] (PPO) [id number] Harjit Brown [id number] Paresh Brown Notes Date Note Type Note Provider Name and Address Organization Details Recorded Time 07/28/2021 text/html Patient is in today for follow-up of postoperative urinary retention and BPH. He is now voiding at baseline. He has not had any urinary retention episodes.patient recently treated for prostatitis flare of hematospermia. All of his lower urinary tract symptoms have resolved with treatment and hematospermia is improving. Patient is now voiding normally. he is no longer using tamsulosin for finasteride. PSA July 25, 2021 5.4 with free over total percentage 32.6% MONALISA PATEL JR, MD [address] [place] [address], [phone], [facility] 07/28/2021 14:18:13 02/02/2022 text/html Patient is in today for follow-up of postoperative urinary retention and BPH. He is now voiding at baseline. He has not had any urinary retention episodes.patient recently treated for prostatitis flare of hematospermia. All of his lower urinary tract symptoms have resolved with treatment and hematospermia is improving. Patient is now voiding normally. he is no longer using tamsulosin for finasteride. PSA July 25, 2021 5.4 with free over total percentage 32.6% MONALISA PATEL JR, MD [address] [place] [address], [phone], [facility] 02/11/2022 18:57:59 08/03/2022 text/html Patient is in today for follow-up of postoperative urinary retention and BPH. He is now voiding at baseline. He has not had any urinary retention episodes.patient recently treated for prostatitis flare of hematospermia. All of his lower urinary tract symptoms have resolved with treatment and hematospermia is improving. Patient is now voiding normally. he is no longer using tamsulosin for finasteride. PSA July 25, 2021 5.4 with free over total percentage 32.6% Patient declines, digital rectal exam MONALISA PATEL JR, MD [address] [place] [address] [place], [address], [facility] 08/09/2022 08:47:06 11/15/2023 text/html Patient is in today for follow-up of postoperative urinary retention and BPH. He is now voiding at baseline. He has not had any urinary retention episodes.patient recently treated for prostatitis flare of hematospermia. All of his lower urinary tract symptoms have resolved with treatment and hematospermia is improving. Patient is now voiding normally. he is no longer using tamsulosin or finasteride. PSA November 09, 2023 is 5.2 with free over total percentage of 15.4%, stable Patient declines, digital rectal exam MONALISA PATEL JR, MD [address], [address], [facility] 11/22/2023 07:15:32 05/15/2024 text/html Patient is in today for follow-up of postoperative urinary retention and BPH. He is now voiding at baseline. He has not had any urinary retention episodes.No recent episodes of prostatitis Patient is now voiding normally. he is no longer using tamsulosin or finasteride. PSA 6.2, 18.9% 04/2024 Patient declines, digital rectal exam MONALISA PATEL JR, MD [address] [place], [address], [facility] 05/21/2024 16:08:44
--- OUTSIDE RECORDS SUMMARY | 2025-05-03 10:27 | XMS_ITS | Encounter Summary ---
Author Organization Healthcare Address [address] [place] [address] Care Team Providers Care Customer Service Representative Name Role Phone Parrish Thurman MD Primary Care Provider + [phone] Encounter Details Date Type Department Care Team (Late st Contact Info) Description 03/23/2025 Orders Only [facility] Hematology/BMT and Cellular Therapy Program [address] [place] [address] [place] [address] Natalie Andrews RN [facility] Multiple myeloma, remission [...] any time in the past 12 m [facility], were you homeless or [...] drink first t kiet in the morning (EYE-HAND DRILLER) to steady your nerves or to get [...] Start Date Job End Date 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 file Not on file Not on file documented as of this encounter Plan of Treatment Upcoming Encounters Date Type Department Care Team (Late st Contact Info) Description 05/28/2025 1:00 PM EST Office Visit Medical Office Building Surgery [facility] [address], [address] [place] [address] Afshan Bryan MD [address] [facility] [address] [place] [address] Scheduled Orders Name Type Priority Associated Diagnoses Orde r Schedule Protein electrophoresis, serum Lab Routine Multiple myeloma, remission status unspecified (CMS/HCC) Expected: 05/17/2025, Expires: 09/24/2026 [place] Lambda Quant Free Light Chains w/Ratio Lab Routine Multiple myeloma, remission status unspecified (CMS/HCC) Expected: 05/17/2025, Expires: 09/24/2026 IG Profile Lab Routine Multiple myeloma, remission status unspecified (CMS/HCC) Expected: 05/17/2025, Expires: 09/24/2026 Comprehensive Metabolic Panel, Plasma Lab Routine Multiple myeloma, remission status unspecified (CMS/HCC) Expected: 05/17/2025, Expires: 09/24/2026 CBC and Differential Lab Routine Multiple myeloma, remission status unspecified (CMS/HCC) Expected: 05/17/2025, Expires: 09/24/2026 Immunofixation Electrophoresis Lab Routine Multiple myeloma, remission status unspecified (CMS/HCC) Expected: 05/17/2025, Expires: 09/24/2026 documented as of this encounter Goals Goal [...] documented as of this encounter Care Teams Customer Service Representative Relationship Specialty Start Date End Date Parrish Thurman MD [address] [place] [address] PCP - General 10/19/24 documented as of this encounter
--- OUTSIDE RECORDS SUMMARY | 2025-05-03 10:27 | XMS_ITS | Encounter Summary ---
Author Organization [facility] Address [address] [place] [address] Care Team Providers Care Maintenance Mechanic Telephone Name Role Phone Parrish Thurman MD Primary Care Provider + [phone] Encounter Details Date Type Department Care Team (Latest Contact Info) Description 03/22/2025 Travel Social History Tobacco Use Types Packs/Day Years [...] any time in the past 12 m [facility], were you homeless or living in a group home (including now)? 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 file Not on file Not on file documented as of this encounter Plan of Treatment Upcoming Encounters Date Type Department Care Team ([facility] Contact Info) Description 05/28/2025 1:00 PM EST Office Visit Medical Office Building Surgery [facility] [address] [facility], [address] [place] [address] Afshan Bryan MD [address] [facility] [address] [place] [address] documented as of this encounter [...] documented as of this encounter Care Teams Maintenance Mechanic Telephone Relationship Specialty Start Date End Date Parrish Thurman MD [facility] [address] [address] PCP - General 10/19/24 documented as of this encounter
--- OUTSIDE RECORDS SUMMARY | 2025-05-03 10:27 | XMS_ITS | Encounter Summary ---
Author Organization [facility] Address [address] [place] [id number] Care Team Providers Care Engineering Associate Name Role Phone Parrish Thurman MD Primary Care Provider + [phone] Reason for Visit * Reason Onset Date Comments Med Refill 03/19/2025 Encounter Details Date Type Department Care Team (Late st Contact Info) Description 03/19/2025 Refill [facility] Hematology/BMT and Cellular Therapy Program [address] [address] Mohit Villarreal MD [address] [facility] [address] [place] [address] Multiple myeloma not having achieved remission (CMS/HCC) [...] any time in the past 12 m [facility], were you homeless or living in a mcfp (including now)? 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 file Not on file Not on file documented as of this encounter Plan of Treatment Upcoming Encounters Date Type Department Care Team (Late st Contact Info) Description 05/28/2025 1:00 PM EST Office Visit Medical Office Building [facility] [address], [address] [place] [address] Afshan Bryan MD [address] [place] [address] documented as of this encounter [...] documented as of this encounter Care Teams Engineering Associate Relationship Specialty Start Date End Date Parrish Thurman MD [address] [facility] [address] [place] [address] PCP - General 10/19/24 documented as of this encounter
--- OUTSIDE RECORDS SUMMARY | 2025-05-03 10:27 | XMS_ITS | Encounter Summary ---
Author Organization [facility] Address [address] [place] [address] Care Team Providers Care Building Custodian Name Role Phone Parrish Thurman MD Primary Care Provider + [phone] Encounter Details Date Type Department Care Team (Latest Contact Info) Description 04/05/2025 Travel Social History Tobacco Use Types Packs/Day [...] any time in the past 12 m [facility], were you homeless or living in a custodial (including now)? 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 file Not on file Not on file documented as of this encounter Plan of Treatment Upcoming Encounters Date Type Department Care Team ([facility] Contact Info) Description 05/28/2025 1:00 PM EST Office Visit Medical Office Building Surgery Spine & Joint [address] [facility], [address] [place] [address] Afshan Bryan MD [address] [facility] [address] [place] [address] documented as of this encounter [...] documented as of this encounter Care Teams Building Custodian Relationship Specialty Start Date End Date Parrish Thurman MD [facility] [address] [address] PCP - General 10/19/24 documented as of this encounter
--- OUTSIDE RECORDS SUMMARY | 2025-05-03 10:27 | XMS_ITS | Encounter Summary ---
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 Procedural Documentation Entered On: 08/30/2018 10:21 EST Performed On: 08/30/2018 10:15 EST by TANA SAENZ RN Procedure Documentation Procedure Case Attendee : BAKARI SANCHEZ MD Procedure Case Attendee Role : Anesthesiologist Procedure Case Attendee Role 2 : automotive leasing sales representative Case Attendee 2 : TANA SAENZ RN Procedure Case Attendee Role 3 : automotive leasing sales representative Case Attendee 3 : DESEAN GUILLEN RN BOWLING, CHERYL A, RN - 08/30/2018 10:22 EST Procedure to be Performed : sciatic block Time Out Pause Time : 08/30/2018 10:15 EST All Activity Suspended : Yes Team Verbally Confirms Information : Correct patient identity TANA SAENZ RN - 08/30/2018 10:15 EST Procedure Performed : right sciatic block- pt left side lying- prep and drape- premeds given- inected per Cornea using nerve stim and ultrasound to guide. 1022- repositioned supine - injected in right adductor- using ultrasound guide TANA SAENZ RN - 08/30/2018 10:22 EST Proper Use of Sterile Apparel per Policy : Yes TANA SAENZ RN - 08/30/2018 10:15 EST Postprocedure Documentation Current Time : 10:25 EST Patient Identifiers : Yes Medication Reconciliation : Yes Discharge Instructions : Not applicable Dressing, Procedure : N/A Discharged Via : Stretcher Discharged/Transferred To : Other: OR Hand off Report Received From : TANA SAENZ RN Handoff Method : Bedside/Face to face, Online nursing summary TANA SAENZ RN - 08/30/2018 10:22 EST Isaac Level I Post Anesthesia Assessment Isaac I Activity Status : Moves 4 extremities voluntarily or on command Isaac l Respiratory Component : Able to deep breathe and cough freely Isaac I Circulation Component : BP 20% of preanesthetic level Isaac I Consciousness : Fully awake Isaac l Oxygen Saturation : Can maintain > 92% on room air Isaac l Score : 10 TANA SAENZ RN - 08/30/2018 10:22 EST Isaac Level II Assessment Isaac ll Dressing : Dry and clean Isaac ll Pain : Pain free TANA SAENZ RN - 08/30/2018 10:22 EST Vital Measurements Heart Rate, Apical : 75 bpm Pulse Rhythm : Regular Respiratory Rate : 18 Breaths/Min Blood Pressure Location : Arm, right upper Blood Pressure Source : Non-Invasive BP Device Blood Pressure Position : Supine Systolic Blood Pressure : 124 mmHg Diastolic Blood Pressure : 74 mmHg Oxygen Saturation : 99 % Oxygen Therapy Mode : Nasal cannula Oxygen Flow Rate : 3 Liter/Min TANA SAENZ RN - 08/30/2018 10:22 EST documented in this encounter Plan of Treatment Not on file documented as of this encounter Visit Diagnoses Not on filedocumented in this encounter
--- OUTSIDE RECORDS SUMMARY | 2025-05-03 10:27 | XMS_ITS | Encounter Summary ---
Author Organization [facility] ([place], [place], [place], [place]) Address [address] [place] [address] Care Team Providers Care [employer] Team Member Name Role Phone Unavailable Primary Care Provider Unavailabl e Encounter Details Date Type Department Care Team (Late st Contact Info) Description 08/30/2018 Transcribed Document [facility] [place] Family Medicine [facility] [place] [address] ProviderTree MD [facility] [place] [id number] Social History Tobacco Use Types Packs/Day Years [...] - Tree ProviderMD - 08/30/2018 2:59 PM BISTRO ATTENDANT Evaluation, Occupational Therapy Entered On: 08/31/2018 14:39 EST Performed On: 08/31/2018 10:24 EST by LEVAR BAJWA OTR/L General Information, OT Visit Type, OT : Initial evaluation Patient Orders : Order Date Order Ordering 08/30/2018 15:00 OT Evaluation and Treatment Ordered By: BEATRIZ RAWLS MD-ORT 08/30/2018 15:00 OT Treatment Instructions Ordered By: BEATRIZ RAWLS MD-ORYuko Active Diagnoses : 08/30/2018 00:00 Osteonecrosis, unspecified Therapy Diagnosis, OT : decreased independence with ADLs due to weakness Onset of Problem, OT : 08/30/2018 EST Admission Date : 08/30/2018 06:24 Co-treated by, OT : Physical Therapist Personal Devices : Personal Devices No Devices Recorded Assistive Devices : Assistive Devices No Devices Recorded General Information Comment, OT : Diagnosis: R TKA LEVAR BAJWA OTR/Sis 08/31/2018 14:34 EST General Status Patient Received Status : Supine in bed Treatment Start Time : 08/31/2018 9:57 EST Patient Left Status : Up in chair, RN/PCT informed, All needs met and within reach Treatment End Time : 08/31/2018 10:24 EST Treatment Time : 27 Minute(s) LEVAR BAJWA OTR/Sis 08/31/2018 14:34 EST History and Environment, OT Living Situation, Therapy : Home Patient Lives With : Spouse Persons Assisting Patient at Home : Spouse Professional Skilled Services : None Persons Providing Information : Patient Home Equipment, Therapy : Cane, Crutches, Walker, Wheelchair Cane : Cane, single point Crutches : Crutches, axillary Walker : Walker, four wheel Wheelchair : Wheelchair, power Home Setup : One story Bedroom Location : Main level Bathroom #1 Location : Main level Bathroom #1 Features : Toilet, Tub/Shower Stairs : Yes Stair Location(s) : Outside Outside Stairs, Number of Steps : 1 Outside Stairs Comment : total 2 steps with porch inbetween Railing Outside : No Ramp : No LEVAR BAJWA OTR/Sis 08/31/2018 14:34 EST Prior LOF Bathing, OT : Independent Prior LOF Bed Mobility : Independent Prior LOF Upper Body Dressing, OT : Independent Prior LOF Lower Body Dressing, OT : Independent Prior LOF Toileting : Independent Prior LOF Transfer : Independent Prior LOF Grooming, OT : Independent Prior LOF for IADLs, OT : Independent LEVAR BAJWA OTR/Sis 08/31/2018 14:34 EST Upper Extremity Right UE Active ROM : WFL Right UE Strength : WFL Left UE Active ROM : WFL Left UE Strength : WFL LEVAR BAJWA OTR/Sis 08/31/2018 14:34 EST Self Care/Home Management, OT Self Feeding Assist Level, OT : Supervision or set-up Grooming Assist Level, OT : Supervision or set-up Bathing Assist Level, OT : Assist, minimal Upper Body Dressing Assist Level, OT : Supervision or set-up Lower Body Dressing Assist Level, OT : Assist, minimal Toileting Assist Level : Supervision or set-up LEVAR BAJWA OTR/Sis - 08/31/2018 14:34 EST Functional Mobility Mobility Grid Supine to Sit : Supervision/set-up Sit to Stand : Supervision/set-up Bed to Chair : Supervision/set-up Stand to Sit : Supervision/set-up LEVAR BAJWA OTR/Sis - 08/31/2018 14:34 EST AM PAC Daily Activity Putting On/Taking Off Lower Body Clothes : A little Bathing (Washing, Rinsing, Drying) : A little Toileting Includes Toilet, Bedpan, Urinal : None Putting On/Taking Off Upper Clothing : None Taking Care of Grooming : None Eating Meals : None AM-PAC Daily Activity Raw Score : 22 LEVAR BAJWA OTR/Sis - 08/31/2018 14:34 EST Image 3 - Images currently included in the form version of this document have not been included in the text rendition version of the form. Functional Limitation Reporting, OT Functional Limitation Visit Type, OT : Initial evaluation Self Care [id number] - Current Mod, OT : 20 - 39% impaired, limited or restricted (CJ) Self Care G8988 - Proj Goal Mod, OT : 20 - 39% impaired, limited or restricted (CJ) Self Care G8989 - Discharge Mod, OT : 20 - 39% impaired, limited or restricted (CJ) LEVAR BAJWA OTR/Sis - 08/31/2018 14:34 EST Cognition Assessment, OT Orientation : Oriented x 4 LEVAR BAJWA OTR/Sis - 08/31/2018 14:34 EST Indication Assessment, OT Occupational Therapy Indicated : No LEVAR BAJWA OTR/Sis - 08/31/2018 14:34 EST Plan of Care, OT OT Tx Plan/Goals Established w Patient : No LEVAR BAJWA OTR/Sis - 08/31/2018 14:34 EST Treatment Note Subjective Comment : Pt agreeable Patient's Response to Treatment : Pt tolerated evaluation well Additional Objective Information : Pt supine upon arrival. Pt SBA supine to sit. Pt sat EOB to complete UB dressing with SBA, min A for LB dressing using coal inspector. Pt educated on use AE for LB ADLs, pt verbalized understanding. Pt ambulated in room and hallway with SBA using RWx. Pt returned to room, left with needs met and CL in reach. Assessment : Pt to dc home today Plan for Treatment : Eval only LEVAR BAJWA OTR/L - 08/31/2018 14:34 EST Pain Assessment Pain Score Pre-Intervention : 4 LEVAR BAJWA OTR/L - 08/31/2018 14:34 EST Image 1 - Images currently included in the form version of this document have not been included in the text rendition version of the form. Anticipated Discharge Needs, OT/PT Anticipated Discharge to : Home, with home health LEVAR BAJWA OTR/L - 08/31/2018 14:34 EST Saxman OT Charges OT Selfcare/Hm Mgmt Ea 15 Min : 1 OT Eval Low Complexity : 1 LEVAR BAJWA OTR/L - 08/31/2018 14:34 EST Electronically signed by Amira [facility] Conversion Mason Helper Cerner at 10/27/2022 8:26 PM CDT documented in this encounter Plan of Treatment Not on file documented as of this encounter Visit Diagnoses Not on filedocumented in this encounter
--- OUTSIDE RECORDS SUMMARY | 2025-05-03 10:28 | XMS_ITS | Encounter Summary ---
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 Name Role Phone Unavailable Primary Care Provider Unavailabl e Encounter Details Date Type Department Care Team (Late st Contact Info) Description 08/30/2018 Transcribed Document [facility] Family Medicine [facility] [place] [address] ProviderTree MD [facility] [place], [place] [id number] Social History Tobacco Use Types Packs/Day Years Used Date Smoking Tobacco: Never Assessed Sex and Gender Information Value Date Recorded Sex Assigned at Male 01/06/2022 8:27 PM CDT Legal Sex Male 8:27 PM CDT Gender Identity Male 01/06/2022 8:27 PM CDT Sexual Orientation Not on file documented as of this encounter Miscellaneous Notes * Cerner Conversion Note - Tree ProviderMD - 08/30/2018 6:00 AM 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 Patient: PETRA VILLALBA Age: 62 years Sex: Male : 1955 Associated Diagnoses: None Author: ISACC ACHARYA, AUTOMATION MANAGER Chief Complaint R knee pain Review of Systems ROS reviewed as documented in chart no change since last seen by surgeon Health Status Allergies: Allergic Reactions (Selected) No Known Allergies, Allergies (1) Active Reaction No Known Allergies None Documented Current medications: (Selected) Inpatient Medications Ordered Ancef: 2 Gram, 50 mL, 100 mL/Hr, IV Piggyback, PREOP Cyklokapron 1,000 mg + syringe 1 Each + Sodium Chloride 0.9% intravenous solution 15 mL: 1,000 mg, 10 mL, 150 mL/Hr, IV Push, 1-Time Cyklokapron 2,000 mg + sodium chloride 0.9% injectable solution 5 mL + syringe 1 Each: 2,000 mg, 20 mL, 75 mL/Hr, IV Push, 1-Time Lactated Ringers Injection intravenous solution 1,000 mL: 20 mL/Hr, IntraVENous Ofirmev: 1,000 mg, 100 mL, 400 mL/Hr, IV Piggyback, 1-Time Zofran: 4 mg, IV Push, 1-Time fentaNYL: 50 mcg, IV Push, Q10Min, PRN: Pain ibuprofen: 800 mg, 8 mL, 516 mL/Hr, IV Piggyback, 1-Time lidocaine 1% preservative-free injectable solution: 0.5 mL, IntraDermal, 1-Time midazolam: 2 mg, IV Push, Q10Min, PRN: Anxiety ropivacaine 0.5% injectable solution 24.6 mL + EPINEPHrine 0.25 mg + cloNIDine 40 mcg + Sodium Chlo...: 24.6 mL, 50 mL/Hr, Miscellaneous, 1-Time Documented Medications Documented Trelegy Ellipta: 1 Puff, Inhalation, Daily, 0 Refill(s) cetirizine: 10 mg, Oral, Daily, 0 Refill(s) fluticasone 50 mcg/inh nasal spray: 1 [place], Nostrils Both, Daily, 0 Refill(s) hydroCHLOROthiazide-triamterene 25 mg-37.5 mg oral tablet: 0.5 Tab, Oral, Daily, 30 Tab, 0 Refill(s) ibuprofen: 200 mg ( 4tabs), Oral, BID, 0 Refill(s) levalbuterol 1.25 mg/3 mL inhalation solution: 3 mL, Nebulized Inhalation, Q4H, takes it routinely bid, PRN: as needed for wheezing, 0 Refill(s) omeprazole: 20 mg, Oral, Daily, 0 Refill(s) zolpidem: 10 mg, Oral, At Bedtime, takes 1/2 tab, 0 Refill(s), Home Medications (8) Active cetirizine 10 mg, Oral, Daily fluticasone 50 mcg/inh nasal spray 1 [place], Nostrils Both, Daily hydroCHLOROthiazide-triamterene 25 mg-37.5 mg oral tablet 0.5 Tab, Oral, Daily ibuprofen 200 mg ( 4tabs), Oral, BID levalbuterol 1.25 mg/3 mL inhalation solution 1.25 mg = 3 mL, PRN, Nebulized Inhalation, Q4H omeprazole 20 mg, Oral, Daily Trelegy Ellipta 1 Puff, Inhalation, Daily zolpidem 10 mg, Oral, At Bedtime , Medications (11) Active Scheduled: (8) acetaminophen 1,000 mg 100 mL, IV Piggyback, 1-Time ceFAZolin/D5w 2 Gram 50 mL, IV Piggyback, PREOP ibuprofen 800 mg 8 mL, IV Piggyback, 1-Time lidocaine 1% *PF* inj 2 mL 0.5 mL, IntraDermal, 1-Time ondansetron 4 mg/2 mL inj 4 mg 2 mL, IV Push, 1-Time ropivacaine 0.5% 24.6 mL + EPINEPHrine 0.25 mg + cloNIDine 40 mcg + NaCl 0.9% 24.75 mL 24.6 mL, Miscellaneous, 1-Time tranexamic acid 1,000 mg + syringe 1 Each + NaCl 0.9% 15 mL 1,000 mg 10 mL, IV Push, 1-Time tranexamic acid 2,000 mg + NaCl 0.9% *PF* 5 mL + syringe 1 Each 2,000 mg 20 mL, IV Push, 1-Time Continuous: (1) lactated ringers 1,000 mL 1,000 mL, IntraVENous, 20 mL/Hr PRN: (2) fentaNYL 100 mcg/2 mL inj 50 mcg 1 mL, IV Push, Q10Min midazolam 1 mg/1 mL inj 2 mL 2 mg 2 mL, IV Push, Q10Min Problem list: All Problems Wears glasses / SNOMED CT 047003445 / Confirmed Sinusitis / SNOMED CT 77129186 / Confirmed Hyperlipidemia / SNOMED CT 40860279 / Confirmed High blood pressure / SNOMED CT 97238758 / Confirmed GERD - Gastro-esophageal reflux disease / SNOMED CT 0510741789 / Confirmed Shortness of breath with exercise / SNOMED CT 937209796 / Confirmed Back pain / SNOMED CT 1130054868 / Confirmed At risk for sleep apnea / IMO 94350781 / Confirmed Asthma / SNOMED CT 083378790 / Confirmed Arthritis / SNOMED CT 6489852 / Confirmed Allergic rhinitis / SNOMED CT 853759747 / Confirmed, Active Problems (11) Allergic rhinitis Arthritis osteo Asthma At risk for sleep apnea Back pain GERD - Gastro-esophageal reflux disease High blood pressure Hyperlipidemia Shortness of breath with exercise Sinusitis Wears glasses Histories Past Medical History: No active or resolved past medical history items have been selected or recorded. Family History: No family history items have been selected or recorded. Procedure history: colonoscopy. Social History Social & Psychosocial Habits Alcohol 08/19/2018 Alcohol Use Frequency Rarely Employment/School 08/19/2018 Status: Employed Home/Environment 08/19/2018 Lives with: Spouse Living situation: Home/Independent Substance Abuse 08/19/2018 Recreational Drug Use History No Recreational Drug Use Last 12 Months No Tobacco 08/19/2018 Smoking Status Former smoker, quit more Smokeless Tobacco Status Smokeless tobacco user wi Years of Tobacco Use 18 Packs/Tins Daily 0.5 Month Tobacco Last Used started smoking at age 16 quit smoking 1992 use dip 1/2 can /day since . Physical Examination VS/Measurements Vital Signs/Vital Measures 08/30/2018 6:00 EST Temperature Source Temporal artery scanning Temperature Mode Fahrenheit Temperature, Fahrenheit 97.4 Deg F Heart Rate Monitored 76 bpm Respiratory Rate 16 Breaths/Min Systolic Blood Pressure 107 mmHg Diastolic Blood Pressure 72 mmHg Oxygen Saturation 96 % Oxygen Therapy Mode Room air , Vitals Signs (last 24 hrs) Last Charted Minimum Maximum Temp 97.4 (AUG 30 06:00) 97.4 (AUG 30 06:00) 97.4 (AUG 30 06:00) Mon HR 76 (AUG 30 06:00) 76 (AUG 30 06:00) 76 (AUG 30 06:00) Resp Rate 16 (AUG 30 06:00) 16 (AUG 30 06:00) 16 (AUG 30 06:00) SBP 107 (AUG 30 06:00) 107 (AUG 30 06:00) 107 (AUG 30 06:00) DBP 72 (AUG 30 06:00) 72 (AUG 30 06:00) 72 (AUG 30 06:00) SpO2 96 (AUG 30 06:00) 96 (AUG 30 06:00) 96 (AUG 30 06:00) General: Alert and oriented, No acute distress, mild obesity. Eye: Pupils are equal, round and reactive to light, Extraocular movements are intact, glasses. HENT: Normocephalic, Normal hearing. Neck: Supple, Non-tender. Respiratory: Lungs are clear to auscultation, Respirations are non-labored. Cardiovascular: Normal rate, Regular rhythm, No murmur, No gallop, No edema. Gastrointestinal: Soft, Non-tender. Genitourinary: No costovertebral angle tenderness. Lymphatics: No lymphadenopathy neck, axilla, groin. Musculoskeletal: Normal strength, painful ROM R knee. Integumentary: Warm, Dry, [place]. Neurologic: Alert, Oriented. Psychiatric: Cooperative, Appropriate mood & affect. Review / Management Results review: Labs (Last four charted values) WBC 9.1 (AUG 19) HB 15.8 (AUG 19) HCT 46.5 (AUG 19) Plt 214 (AUG 19) Na 139 (AUG 19) K 3.9 (AUG 19) Cl 104 (AUG 19) CO2 24 (AUG 19) BUN 18 (AUG 19) Cr 1.10 (AUG 19) Glu R 96 (AUG 19) Ca 9.4 (AUG 19) AST H 45 (AUG 19) ALT 58 (AUG 19) ALK P 84 (AUG 19) T Bili 0.8 (AUG 19) PTN 7.4 (AUG 19) ALB 4.0 (AUG 19) , Lab results: 08/30/2018 6:21 EST Potassium POC 2.7 mmol/L LOW . Impression and Plan Condition: Stable. documented in this encounter Plan of Treatment Not on file documented as of this encounter Visit Diagnoses Not on filedocumented in this encounter
--- OUTSIDE RECORDS SUMMARY | 2025-05-03 10:28 | XMS_ITS | Encounter Summary ---
Author Organization [employer] ([place], [place], [place], [place]) Address [address] [place] [address] Care Team Providers [employer] Associate Name Role Phone Unavailable Primary Care Provider Unavailabl e Encounter Details Date Type Department Care Team (Late st Contact Info) Description 08/31/2018 Transcribed Document [facility] – [place] Family Medicine [facility] [place] [address] ProviderTree MD [facility] [place] [address] Social History Tobacco Use Types Packs/Day Years Used Date Smoking Tobacco: Never Assessed Sex and Gender Information Value Date Recorded Sex Assigned at Male 01/06/2022 8:27 PM CDT Legal Sex Male 8:27 PM CDT Gender Identity Male 01/06/2022 8:27 PM CDT Sexual Orientation Not on file documented as of this encounter Miscellaneous Notes * Cerner Conversion Note - Tree Alonso MD - 08/31/2018 10:51 AM 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 [address] , [place] [address] Patient Copy Patient Information: Name: PETRA VILLALBA Current Date: 08/31/2018 10:51:42 : 1955 Patient Address: [address] [place] [id number] Patient Attending Physician: BEATRIZ RAWLS MD-ORT Primary Care Provider: BILL VENTURA MD-KATHLEEN Primary Care Provider Discharge Diagnosis: Weight on Admission: 224 lb, 0 oz Comment: Follow-up Instructions: With: Address: When: BEATRIZ RAWLS [address] [employer], [place] [phone] Business (1) 11:00 AM Discharge Instructions: Diet after Discharge: Resume usual diet as tolerated Activity after Discharge: As tolerated, No strenuous activities, Full weight bearing Driving after Discharge: Do not drive, Other: No driving while taking pain medication Showering/Bathing:May shower, No tub bathing, soaking, or swimming Wound/Incision Care after Discharge: Keep operative site/wound site clean and dry, DO NOT Change dressing; may reinforce it as needed, Other: Leave dressing in place Wound/Incision Care after Discharge Comment: Notify provider of fever greater than 100.1, foul drainage or redness at incision site Immunizations Documented During Stay: No Immunizations Found Heart Failure Discharge Instructions (if any): Stroke Related Discharge Instructions (if any): Warfarin Related Discharge Instructions (if any): Final Medication List: Printed Prescriptions acetaminophen-oxyCODONE (Percocet 5/325 oral tablet) 2 Tablet(s) Oral Every 6 Hours as needed for pain. 1-2 q 6 prn. Refills: 0. enoxaparin (Lovenox 40 mg/0.4 mL injectable solution) 30 Milligram(s) SubCutaneous Interval Every 24 Hours. Refills: 0. tamsulosin (Flomax 0.4 mg oral capsule) 1 Capsule(s) Oral Every Day. Refills: 0. Other Medications cetirizine 10 Milligram(s) Oral Every Day. fluticasone nasal (fluticasone 50 mcg/inh nasal spray) 1 Weston(s) Nostrils Both Every Day. fluticasone/umeclidinium/vilanterol (Trelegy Ellipta) 1 Puff(s) Inhalation Every Day. hydrochlorothiazide-triamterene (hydroCHLOROthiazide-triamterene 25 mg-37.5 mg oral tablet) 0.5 Tablet(s) Oral Every Day. ibuprofen 200 mg ( 4tabs) Oral Two Times A Day. levalbuterol (levalbuterol 1.25 mg/3 mL inhalation solution) 3 Milliliter(s) Nebulized Inhalation Every 4 Hours as needed as needed for wheezing. takes it routinely bid. omeprazole 20 Milligram(s) Oral Every Day. zolpidem 10 Milligram(s) Oral At Bedtime. takes 1/2 tab. Patient Allergies: No Known Allergies Medication Instructions: Take your medications faithfully. Do NOT skip medication. Do NOT stop taking medications without the direction of a physician. Carry a list of your medications with you at all times, and take this medication list with you to your first follow up visit. Report any side effects. Avoid herbal remedies unless discussed with your physician. As part of your treatment plan, your physician may have prescribed a limited course of a controlled substance. This medication may be given to help people with moderate or severe pain or for other medical conditions, but there are risks involved with treatment. Common side effects may include nausea, constipation, drowsiness, sweating, itching, dry mouth, and rash. More serious side effects may include cognitive and motor impairment, like problems with thinking, concentrating, alertness, and movement (e.g. slowed reflexes), and driving and operating heavy machinery can be dangerous. It is important for you to talk to your physician if you have these side effects or questions. These controlled substances can produce physical dependence and be habit-forming if taken for an extended period of time, which means that the body has gotten used to them and may experience withdrawal symptoms if they are abruptly stopped. Withdrawal symptoms can include runny nose, sweating, goose bumps, diarrhea, abdominal cramping, rapid heartbeat, difficulty sleeping, and nervousness. Patient education materials: Plascencia Catheter Care, Adult A Plascencia catheter is a soft, flexible tube. This tube is placed into your bladder to drain pee (urine). If you go home with this catheter in place, follow the instructions below. TAKING CARE OF THE CATHETER 1. Wash your hands with soap and water. 2. Put soap and water on a clean washcloth. ??? Clean the skin where the tube goes into your body. ? Clean away from the tube site. ? Never wipe toward the tube. ? Clean the area using a circular motion. ??? Remove all the soap. Pat the area dry with a clean towel. For males, reposition the skin that covers the end of the penis (foreskin). 3. Attach the tube to your leg with tape or a leg strap. Do not stretch the tube tight. If you are using tape, remove any stickiness left behind by past tape you used. 4. Keep the drainage bag below your hips. Keep it off the floor. 5. Check your tube during the day. Make sure it is working and draining. Make sure the tube does not curl, twist, or bend. 6. Do notpull on the tube or try to take it out. TAKING CARE OF THE DRAINAGE BAGS You will have a large overnight drainage bag and a small leg bag. You may wear the overnight bag any time. Never wear the small bag at night. Follow the directions below. Emptying the Drainage Bag Empty your drainage bag when it is ??? full or at least 2?3 times a day. 1. Wash your hands with soap and water. 2. Keep the drainage bag below your hips. 3. Hold the dirty bag over the toilet or clean container. 4. Open the pour spout at the bottom of the bag. Empty the pee into the toilet or container. Do not let the pour spout touch anything. 5. Clean the pour spout with a gauze pad or cotton ball that has rubbing alcohol on it. 6. Close the pour spout. 7. Attach the bag to your leg with tape or a leg strap. 8. Wash your hands well. Changing the Drainage Bag Change your bag once a month or sooner if it starts to smell or look dirty. 1. Wash your hands with soap and water. 2. Pinch the rubber tube so that pee does not spill out. 3. Disconnect the catheter tube from the drainage tube at the connection valve. Do not let the tubes touch anything. 4. Clean the end of the catheter tube with an alcohol wipe. Clean the end of a the drainage tube with a different alcohol wipe. 5. Connect the catheter tube to the drainage tube of the clean drainage bag. 6. Attach the new bag to the leg with tape or a leg strap. Avoid attaching the new bag too tightly. 7. Wash your hands well. Cleaning the Drainage Bag 1. Wash your hands with soap and water. 2. Wash the bag in warm, soapy water. 3. Rinse the bag with warm water. 4. Fill the bag with a mixture of white vinegar and water (1 cup vinegar to 1 quart warm water [.2 liter vinegar to 1 liter warm water]). Close the bag and soak it for 30 minutes in the solution. 5. Rinse the bag with warm water. 6. Hang the bag to dry with the pour spout open and hanging downward. 7. Store the clean bag (once it is dry) in a clean plastic bag. 8. Wash your hands well. PREVENT INFECTION ??? Wash your hands before and after touching your tube. ??? Take showers every day. Wash the skin where the tube enters your body.Do not take baths. Replace wet leg straps with dry ones, if this applies. ??? Do not use powders, sprays, or lotions on the genital area. Only use creams, lotions, or ointments as told by your doctor. ??? For females, wipe from front to back after going to the bathroom. ??? Drink enough fluids to keep your pee clear or pale yellow unless you are told not to have too much fluid (fluid restriction). ??? Do notlet the drainage bag or tubing touch or lie on the floor. ??? Wear cotton underwear to keep the area dry. GET HELP IF: ??? Your pee is cloudy or smells unusually bad. ??? Your tube becomes clogged. ??? You are not draining pee into the bag or your bladder feels full. ??? Your tube starts to leak. GET HELP RIGHT AWAY IF: ??? You have pain, puffiness (swelling), redness, or yellowish-white fluid (pus) where the tube enters the body. ??? You have pain in the belly (abdomen), legs, lower back, or bladder. ??? You have a fever. ??? You see blood fill the tube, or your pee is pink or red. ??? You feel sick to your stomach (nauseous), throw up (vomit), or have chills. ??? Your tube gets pulled out. MAKE SURE YOU: ??? Understand these instructions. ??? Will watch your condition. ??? Will get help right away if you are not doing well or get worse. This information is not intended to replace advice given to you by your health care provider. Make sure you discuss any questions you have with your health care provider. Document Released: 10/23/2013 Document Revised: 07/19/2015 Document Reviewed: 06/13/2016 [employer] Interactive Patient Education ? 2017 [employer] Wound Infection Introduction A wound infection happens when germs start to grow in the wound. Germs that cause wound infections are most often bacteria. Other types of infections can occur as well. In some cases, infection can cause the wound to break open. Wound infections need treatment. If a wound infection is not treated, complications can happen. Follow these instructions at home: Medicines??? Take or apply meom-mjs-ruqocau and prescription medicines only as told by your doctor. ??? If you were prescribed antibiotic medicine, take or apply it as told by your doctor. Do not stop using the antibiotic even if your condition improves. Wound care??? Clean the wound each day or as told by your doctor.? Wash the wound with mild soap and water. ? Rinse the wound with water to remove all soap. ? Pat the wound dry with a clean towel. Do not rub it. ??? Follow instructions from your doctor about how to take care of your wound. Make sure you:? Wash your hands with soap and water before you change your bandage (dressing). If you cannot use soap and water, use hand gallery or museum technician. ? Change your bandage as told by your doctor. ? Leave stitches (sutures), skin glue, or skin tape (adhesive) strips in place if your wound has been closed. They may need to stay in place for 2 weeks or longer. If tape strips get loose and curl up, you may trim the loose edges. Do not remove tape strips completely unless your doctor says it is okay. Some wounds are left open to heal on their own. ??? Check your wound every day for signs of infection. Watch for:? More redness, swelling, or pain. ? More fluid or blood. ? Warmth. ? Pus or a bad smell. General instructions??? Keep the bandage dry until your doctor says it can be removed. ??? Do nottake baths, swim, use a hot tub, or do anything that would put your wound underwater until your doctor says it is okay. ??? Raise (elevate) the injured area above the level of your heart while you are sitting or lying down. ??? Do notscratch or pick at the wound. ??? Keep all follow-up visits as told by your doctor. This is important. Contact a doctor if: ??? Medicine does not help your pain. ??? You have more redness, swelling, or pain in the area of your wound. ??? You have more fluid or blood coming from your wound. ??? Your wound feels warm to the touch. ??? You have pus coming from your wound. ??? You continue to notice a bad smell coming from your wound or your bandage. ??? Your wound that was closed breaks open. Get help right away if: ??? You have a red streak going away from your wound. ??? You have a fever. This information is not intended to replace advice given to you by your health care provider. Make sure you discuss any questions you have with your health care provider. Document Released: 04/06/2009 Document Revised: 12/03/2016 Document Reviewed: 12/16/2015 ? 2017 [employer] Knee Replacement, Care After These instructions give you information about caring for yourself after your procedure. Your doctor may also give you more specific instructions. Call your doctor if you have any problems or questions after your procedure. Follow these instructions at home: Medicines ??? Take fcig-qcn-zkwbqcg and prescription medicines only as told by your doctor. ??? If you were prescribed an antibiotic medicine, take it as told by your doctor. Do not stop taking the antibiotic even if you start to feel better. ??? If you were prescribed a blood thinner (anticoagulant), take it as told by your doctor. If you have a splint or brace: ??? Wear the splint or brace as told by your doctor. Remove it only as told by your doctor. ??? Loosen the splint or brace if your toes tingle, get numb, or turn cold and blue. ??? Do notlet your splint or brace get wet if it is not waterproof. ??? Keep the splint or brace clean. Bathing ??? Do nottake baths, swim, or use a hot tub until your doctor says it is okay. Ask your doctor if you can take showers. You may only be allowed to take sponge baths for bathing. ??? If you have a splint or brace that is not waterproof, cover it with a watertight covering when you take a bath or a shower. ??? Keep your bandage (dressing) dry until your doctor says it can be taken off. Incision care and drain care ??? Check your cut from surgery (incision) and your drain every day for signs of infection. Check for: ? More redness, swelling, or pain. ? More fluid or blood. ? Warmth. ? Pus or a bad smell. ??? Follow instructions from your doctor about how to take care of your cut from surgery. Make sure you: ? Wash your hands with soap and water before you change your bandage. If you cannot use soap and water, use hand gallery or museum technician. ? Change your bandage as told by your doctor. ? Leave stitches (sutures), skin glue, or skin tape (adhesive) strips in place. They may need to stay in place for 2 weeks or longer. If tape strips get loose and curl up, you may trim the loose edges. Do not remove tape strips completely unless your doctor says it is okay. ??? If you have a drain, follow instructions from your doctor about caring for it. Do not remove the drain tube or any bandages unless your doctor says it is okay. Managing pain, stiffness, and swelling ??? If directed, put ice on your knee. ? Put ice in a plastic bag. ? Place a towel between your skin and the bag. ? Leave the ice on for 20 minutes, 2?3 times per day. ??? If directed, apply heat to the affected area as often as told by your doctor. Use the heat source that your doctor recommends, such as a moist heat pack or a heating pad. ? Place a towel between your skin and the heat source. ? Leave the heat on for 20?30 minutes. ? Remove the heat if your skin turns bright red. This is especially important if you are unable to feel pain, heat, or cold. You may have a greater risk of getting burned. ??? Move your toes often to avoid stiffness and to lessen swelling. ??? Raise (elevate) your knee above the level of your heart while you are sitting or lying down. ??? Wear elastic knee support for as long as told by your doctor. Driving ??? Do notdrive until your doctor says it is okay. Ask your doctor when it is safe to drive if you have a splint or brace on your knee. ??? Do notdrive or use heavy machinery while taking prescription pain medicine. ??? Do notdrive for 24 hours if you received a sedative. Activity ??? Do notlift anything that is heavier than 10 lb (4.5 kg) until your doctor says it is okay. ??? Do notplay contact sports until your doctor says it is okay. ??? Avoid high-impact activities, including running, jumping rope, and jumping jacks. ??? Avoid sitting for a long time without moving. Get up and move around at least every few hours. ??? If physical therapy was prescribed, do exercises as told by your doctor. ??? Return to your normal activities as told by your doctor. Ask your doctor what activities are safe for you. Safety ??? Do notuse your leg to support your body weight until your doctor says that you can. Use crutches or a walker as told by your doctor. General instructions ??? Do nothave any dental work done for at least 3 months after your surgery. When you do have dental work done, tell your dentist about your joint replacement. ??? Do notuse any tobacco products, such as cigarettes, chewing tobacco, or e-cigarettes. If you need help quitting, ask your doctor. ??? Wear special socks (compression stockings) as told by your doctor. ??? If you have been sent home with a knee joint motion machine (continuous passive motion machine), use it as told by your doctor. ??? Drink enough fluid to keep your pee (urine) clear or pale yellow. ??? If you have been told to lose weight, follow instructions from your doctor about how to do this safely. ??? Keep all follow-up visits as told by your doctor. This is important. Contact a doctor if: ??? You have more redness, swelling, or pain around your cut from surgery or your drain. ??? You have more fluid or blood coming from your cut from surgery or your drain. ??? Your cut from surgery or your drain area feels warm to the touch. ??? You have pus or a bad smell coming from your cut from surgery or your drain. ??? You have a fever. ??? Your cut breaks open after your doctor removes your stitches, skin glue, or skin tape strips. ??? Your new joint feels loose. ??? You have knee pain that does not go away. Get help right away if: ??? You have a rash. ??? You have pain in your calf or thigh. ??? You have swelling in your calf or thigh. ??? You have shortness of breath. ??? You have trouble breathing. ??? You have chest pain. ??? Your ability to move your knee is getting worse. This information is not intended to replace advice given to you by your health care provider. Make sure you discuss any questions you have with your health care provider. Document Released: 09/19/2012 Document Revised: 03/01/2017 Document Reviewed: 06/03/2016 AlertMe Interactive Patient Education ? 2017 [employer]. Medication Leaflets: tamsulosin (durant angeline FEROZ sin) Flomax What is the most important information I should know about tamsulosin? Follow all directions on your medicine label and package. Tell each of your healthcare providers about all your medical conditions, allergies, and all medicines you use. What is tamsulosin? Tamsulosin is an alpha-rj that is used to improve urination in men with benign prostatic hyperplasia (enlarged prostate). Tamsulosin is not approved for use in women or children. Tamsulosin may also be used for purposes not listed in this medication guide. What should I discuss with my healthcare provider before taking tamsulosin? You should not use tamsulosin if you are allergic to it. Tell your doctor if you have ever had: ? liver or kidney disease; ?? prostate cancer; ?? low blood pressure; or ?? an allergy to sulfa drugs. Tamsulosin can affect your pupils. If you have cataract surgery, tell your surgeon ahead of time that you use this medicine. Tamsulosin is not for use in women, and the effects of this medicine during or in women are unknown. How should I take tamsulosin? Your doctor may test your prostate specific antigen (PSA) to check for prostate cancer before you take tamsulosin. Follow all directions on your prescription label and read all medication guides or instruction sheets. Your doctor may occasionally change your dose. Use the medicine exactly as directed. Tamsulosin is usually taken once a day, approximately 30 minutes after the same meal each day. Swallow the capsule whole and do not crush, chew, break, or open it. Your blood pressure will need to be checked often. Some things can cause your blood pressure to get too low. This includes vomiting, diarrhea, or heavy sweating. Call your doctor if you are sick with vomiting or diarrhea. Store at room temperature away from moisture and heat. If you stop taking tamsulosin for any reason, call your doctor before you start taking it again. You may need a dose adjustment. What happens if I miss a dose? Take the medicine as soon as you can, but skip the missed dose if it is almost time for your next dose. Do not take two doses at one time. If you miss your doses for several days in a row, talk with your doctor before restarting the medication. What happens if I overdose? Seek emergency medical attention or call the Poison Help line at . What should I avoid while taking tamsulosin? Avoid driving or hazardous activity until you know how this medicine will affect you. Your reactions could be impaired. Avoid getting up too fast from a sitting or lying position, or you may feel dizzy. What are the possible side effects of tamsulosin? Get emergency medical help if you have signs of an allergic reaction (hives, difficult breathing, swelling in your face or throat) or a severe skin reaction (fever, sore throat, burning eyes, skin pain, red or purple skin rash with blistering and peeling). Stop using tamsulosin and call your doctor at once if you have: ? a light-headed feeling, like you might pass out; or ?? penis erection that is painful or lasts 4 hours or longer. Tamsulosin lowers blood pressure and may cause dizziness or fainting, especially when you first start taking it. You may feel very dizzy when you first wake up. Avoid getting up too fast from a sitting or lying position, or you may feel dizzy. Common side effects may include: ? abnormal ejaculation, decreased amount of semen; ?? dizziness, drowsiness, weakness; ?? runny nose, cough; ?? back pain, chest pain; ?? nausea, diarrhea; ?? tooth problems; ?? blurred vision; ?? sleep problems (insomnia); or ?? decreased interest in sex. This is not a complete list of side effects and others may occur. Tell your doctor about any unusual or bothersome side effect. You may report side effects to FDA at 2-792-EKD-0705. What other drugs will affect tamsulosin? Tell your doctor about all your current medicines. Many drugs can increase your risk of very low blood pressure while taking tamsulosin, especially: ? medicines similar to tamsulosin (alfuzosin, doxazosin, prazosin, silodosin, or terazosin); ?? heart or blood pressure medication; or ?? sildenafil (Viagra) and other erectile dysfunction medicines. This list is not complete and many other drugs may affect tamsulosin. This includes prescription and ydry-bun-qqjmhme medicines, vitamins, and herbal products. Not all possible drug interactions are listed here. Where can I get more information? Your pharmacist can provide more information about tamsulosin. Remember, keep this and all other medicines out of the reach of children, never share your medicines with others, and use this medication only for the indication prescribed. Every effort has been made to ensure that the information provided by [employer] is accurate, up-to-date, and complete, but no guarantee is made to that effect. Drug information contained herein may be time sensitive. [employer] information has been compiled for use by healthcare practitioners and consumers in the [place] and therefore [employer] does not warrant that uses outside of the [place] are appropriate, unless specifically indicated otherwise. [employer] drug information does not endorse drugs, diagnose patients or recommend therapy. [employer] drug information is an informational resource designed to assist licensed healthcare practitioners in caring for their patients and/or to serve consumers viewing this service as a supplement to, and not a substitute for, the expertise, skill, knowledge and judgment of healthcare practitioners. The absence of a warning for a given drug or drug combination in no way should be construed to indicate that the drug or drug combination is safe, effective or appropriate for any given patient. [employer] does not assume any responsibility for any aspect of healthcare administered with the aid of information [facility] provides. The information contained herein is not intended to cover all possible uses, directions, precautions, warnings, drug interactions, allergic reactions, or adverse effects. If you have questions about the drugs you are taking, check with your doctor, nurse or pharmacist. Copyright 4939-9700 [facility] [employer]. Version: 9.01. Revision Date: 06/06/2018. enoxaparin (ee NOX a PAR rin) Lovenox What is the most important information I should know about enoxaparin? Enoxaparin can cause a very serious blood clot around your spinal cord if you undergo a spinal tap or receive spinal anesthesia (epidural), especially if you have a genetic spinal defect, a history of spinal surgery or repeated spinal taps, or if you are using other drugs that can affect blood clotting, including blood thinners or NSAIDs (ibuprofen, Advil, Aleve, and others). This type of blood clot can lead to long-term or permanent paralysis. Get emergency medical help if you have symptoms of a spinal cord blood clot such as back pain, numbness or muscle weakness in your lower body, or loss of bladder or bowel control. What is enoxaparin? Enoxaparin is an anticoagulant that helps prevent the formation of blood clots. Enoxaparin is used to treat or prevent a type of blood clot called deep vein thrombosis (DVT), which can lead to blood clots in the lungs (pulmonary embolism). A DVT can occur after certain types of surgery, or in people who are bed-ridden due to a prolonged illness. Enoxaparin is also used to prevent blood vessel complications in people with certain types of angina (chest pain) or heart attack. Enoxaparin may also be used for purposes not listed in this medication guide. What should I discuss with my healthcare provider before using enoxaparin? You should not use this medicine if you are allergic to enoxaparin, heparin, benzyl alcohol, or pork products, or if you have: ? active or uncontrolled bleeding; or ?? if you had decreased platelets in your blood after testing positive for a certain antibody while using enoxaparin within the past 100 days. Enoxaparin may cause you to bleed more easily, especially if you have: ? a bleeding disorder that is inherited or caused by disease; ?? hemorrhagic stroke; ?? an infection of the lining of your heart (also called bacterial endocarditis); ?? stomach or intestinal bleeding or ulcer; or ?? recent brain, spine, or eye surgery. Enoxaparin can cause a very serious blood clot around your spinal cord if you undergo a spinal tap or receive spinal anesthesia (epidural). This type of blood clot could cause long-term or permanent paralysis, and may be more likely to occur if: ? you have a spinal cord injury; ?? you have a spinal catheter in place or if a catheter has been recently removed; ?? you have a history of spinal surgery or repeated spinal taps; ?? you have recently had a spinal tap or epidural anesthesia; ?? you take aspirin or an NSAID (nonsteroidal anti-inflammatory drug)--ibuprofen (Advil, Motrin), naproxen (Aleve), diclofenac, indomethacin, meloxicam, and others; or ?? you are using a blood thinner (warfarin, Coumadin) or other medicines to treat or prevent blood clots. Tell your doctor if you have ever had: ? a bleeding disorder such as hemophilia; ?? kidney or liver disease; ?? uncontrolled high blood pressure; ?? eye problems caused by diabetes; ?? a stomach ulcer; or ?? low blood platelets after receiving heparin. Tell your doctor if you are . If you use enoxaparin during , make sure your doctor knows if you have a mechanical heart valve. You should not breast-feed while using this medicine. How should I use enoxaparin? Follow all directions on your prescription label and read all medication guides or instruction sheets. Use the medicine exactly as directed. Enoxaparin is injected under the skin, or as an infusion into a vein. A healthcare provider may teach you how to properly use the medication by yourself. Read and carefully follow any Instructions for Use provided with your medicine. Do not use enoxaparin if you don't understand all instructions for proper use. Ask your doctor or pharmacist if you have questions. Prepare your injection only when you are ready to give it. Do not use if the medicine has changed colors, or has particles in it. Call your pharmacist for new medicine. You should be sitting or lying down during the injection. Do not inject enoxaparin into a muscle. Your care provider will show you where to on your body to inject enoxaparin. Use a different place each time you give an injection. Do not inject into the same place two times in a row. You will need frequent medical tests to help your doctor determine how long to treat you with enoxaparin. If you need surgery or dental work, tell your surgeon or dentist you currently use this medicine. You may need to stop for a short time. Store at room temperature away from moisture and heat. Each single-use prefilled syringe is for one use only. Throw it away after one use, even if there is still medicine left inside. After your first use of an enoxaparin vial (bottle), you must use the medicine within 28 days. Throw away the vial after 28 days. Use a needle and syringe only once and then place them in a puncture-proof 'sharps' container. Follow state or local laws about how to dispose of this container. Keep it out of the reach of children and pets. What happens if I miss a dose? Use the medicine as soon as you can, but skip the missed dose if it is almost time for your next dose. Do not use two doses at one time. What happens if I overdose? Seek emergency medical attention or call the Poison Help line at . Overdose may cause excessive bleeding. What should I avoid while using enoxaparin? Avoid activities that may increase your risk of bleeding or injury. Use extra care to prevent bleeding while shaving or brushing your teeth. What are the possible side effects of enoxaparin? Get emergency medical help if you have signs of an allergic reaction: hives; itching or burning skin; difficult breathing; swelling of your face, lips, tongue, or throat. Also seek emergency medical attention if you have symptoms of a spinal blood clot: back pain, numbness or muscle weakness in your lower body, or loss of bladder or bowel control. Call your doctor at once if you have: ? unusual bleeding, or any bleeding that will not stop; ?? easy bruising, purple or red spots under your skin; ?? nosebleeds, bleeding gums; ?? abnormal vaginal bleeding, blood in your urine or stools; ?? coughing up blood or vomit that looks like coffee grounds; ?? signs of bleeding in the brain--sudden weakness (especially on one side of the body), sudden severe headache, problems with speech or vision; or ?? low red blood cells (anemia)--pale skin, unusual tiredness, feeling light-headed or short of breath, cold hands and feet. Common side effects may include: ? nausea, diarrhea; ?? anemia; ?? confusion; or ?? pain, bruising, redness, or irritation where the medicine was injected. This is not a complete list of side effects and others may occur. Call your doctor for medical advice about side effects. You may report side effects to FDA at 8-167-TAV-1367. What other drugs will affect enoxaparin? Tell your doctor about all your other medicines, especially other medicines to treat or prevent blood clots, such as: ? abciximab, anagrelide, cilostazol, clopidogrel, dipyridamole, eptifibatide, ticlopidine, tirofiban; ?? alteplase, reteplase, tenecteplase, urokinase; ?? apixaban, argatroban, bivalirudin, dabigatran, desirudin, fondaparinux, lepirudin, rivaroxaban, tinzaparin; or ?? heparin. This list is not complete. Other drugs may affect enoxaparin, including prescription and rrwz-xug-bjahymt medicines, vitamins, and herbal products. Not all possible drug interactions are listed here. Where can I get more information? Your doctor or pharmacist can provide more information about enoxaparin. Remember, keep this and all other medicines out of the reach of children, never share your medicines with others, and use this medication only for the indication prescribed. Every effort has been made to ensure that the information provided by [employer] is accurate, up-to-date, and complete, but no guarantee is made to that effect. Drug information contained herein may be time sensitive. [employer] information has been compiled for use by healthcare practitioners and consumers in the [place] and therefore [employer] does not warrant that uses outside of the [place] are appropriate, unless specifically indicated otherwise. [employer]'s drug information does not endorse drugs, diagnose patients or recommend therapy. [employer] drug information is an informational resource designed to assist licensed healthcare practitioners in caring for their patients and/or to serve consumers viewing this service as a supplement to, and not a substitute for, the expertise, skill, knowledge and judgment of healthcare practitioners. The absence of a warning for a given drug or drug combination in no way should be construed to indicate that the drug or drug combination is safe, effective or appropriate for any given patient. [facility] does not assume any responsibility for any aspect of healthcare administered with the aid of information [facility] provides. The information contained herein is not intended to cover all possible uses, directions, precautions, warnings, drug interactions, allergic reactions, or adverse effects. If you have questions about the drugs you are taking, check with your doctor, nurse or pharmacist. Copyright [id number] [facility], [facility]. Version: 05.12. Revision Date: 10/14/2017. acetaminophen and oxycodone (a SEET a MIN oh fen and OX i KOE done) Endocet 10/325, Endocet 2.5/325, Endocet 5/325, Endocet 7.5/325, Nalocet, Percocet 10/325, Percocet 2.5/325, Percocet 5/325, Percocet 7.5/325, Primalev, Primlev, Roxicet, Xartemis XR What is the most important information I should know about acetaminophen and oxycodone? MISUSE OF OPIOID MEDICINE CAN CAUSE ADDICTION, OVERDOSE, OR . Keep the medication in a place where others cannot get to it. An overdose of acetaminophen can damage your liver or cause . Call your doctor at once if you have pain in your upper stomach, loss of appetite, dark urine, or jaundice (yellowing of your skin or eyes). Taking opioid medicine during may cause life-threatening withdrawal symptoms in the . Fatal side effects can occur if you use opioid medicine with alcohol, or with other drugs that cause drowsiness or slow your breathing. Stop taking this medicine and call your doctor right away if you have skin redness or a rash that spreads and causes blistering and peeling. What is acetaminophen and oxycodone? Oxycodone is an opioid pain medication, sometimes called a narcotic. Acetaminophen is a less potent pain reliever that increases the effects of oxycodone. Acetaminophen and oxycodone is a combination medicine used to relieve moderate to severe pain. Acetaminophen and oxycodone may also be used for purposes not listed in this medication guide. What should I discuss with my healthcare provider before taking acetaminophen and oxycodone? You should not use this medicine if you are allergic to acetaminophen or oxycodone, or if you have: ? severe asthma or breathing problems; or ?? a blockage in your stomach or intestines. Tell your doctor if you have ever had: ? liver disease; ?? a drug or alcohol addiction; ?? kidney disease; ?? a head injury or seizures; ?? urination problems; or ?? problems with your thyroid, pancreas, or gallbladder. If you use opioid medicine while you are , your baby could become dependent on the drug. This can cause life-threatening withdrawal symptoms in the baby after it is born. Babies born dependent on opioids may need medical treatment for several weeks. Do not breast-feed. This medicine can pass into breast milk and cause drowsiness, breathing problems, or in a nursing baby. How should I take acetaminophen and oxycodone? Follow all directions on your prescription label. Never take this medicine in larger amounts, or for longer than prescribed. An overdose can damage your liver or cause . Tell your doctor if the medicine seems to stop working as well in relieving your pain. Never share this medicine with another person, especially someone with a history of drug abuse or addiction. MISUSE CAN CAUSE ADDICTION, OVERDOSE, OR . Keep the medicine in a place where others cannot get to it. Selling or giving away acetaminophen and oxycodone is against the law. Measure liquid medicine carefully. Use the dosing syringe provided, or use a medicine dose-measuring device (not a kitchen spoon). If you need surgery or medical tests, tell the doctor ahead of time that you are using this medicine. You should not stop using this medicine suddenly. Follow your doctor's instructions about tapering your dose. Store at room temperature away from moisture and heat. Keep track of your medicine. You should be aware if anyone is using it improperly or without a prescription. Do not keep leftover opioid medication. Just one dose can cause in someone using this medicine accidentally or improperly. Ask your pharmacist where to locate a drug take-back disposal program. If there is no take-back program, flush the unused medicine down the toilet. What happens if I miss a dose? Since this medicine is used for pain, you are not likely to miss a dose. Skip any missed dose if it is almost time for your next dose. Do not use two doses at one time. What happens if I overdose? Seek emergency medical attention or call the Poison Help line at . An overdose of acetaminophen and oxycodone can be fatal. The first signs of an acetaminophen overdose include loss of appetite, nausea, vomiting, stomach pain, sweating, and confusion or weakness. Later symptoms may include pain in your upper stomach, dark urine, and yellowing of your skin or the whites of your eyes. Overdose can also cause severe muscle weakness, pinpoint pupils, very slow breathing, extreme drowsiness, or coma. What should I avoid while taking acetaminophen and oxycodone? Avoid driving or operating machinery until you know how this medicine will affect you. Dizziness or drowsiness can cause falls, accidents, or severe injuries. Do not drink alcohol. Dangerous side effects or could occur. Ask a doctor or pharmacist before using any other medicine that may contain acetaminophen (sometimes abbreviated as APAP). Taking certain medications together can lead to a fatal overdose. What are the possible side effects of acetaminophen and oxycodone? Get emergency medical help if you have signs of an allergic reaction: hives; difficulty breathing; swelling of your face, lips, tongue, or throat. Opioid medicine can slow or stop your breathing, and may occur. A person caring for you should seek emergency medical attention if you have slow breathing with long pauses, blue colored lips, or if you are hard to wake up. In rare cases, acetaminophen may cause a severe skin reaction that can be fatal. This could occur even if you have taken acetaminophen in the past and had no reaction. Stop taking this medicine and call your doctor right away if you have skin redness or a rash that spreads and causes blistering and peeling. Call your doctor at once if you have: ? noisy breathing, sighing, shallow breathing; ?? a light-headed feeling, like you might pass out; ?? weakness, tiredness, fever, unusual bruising or bleeding; ?? confusion, unusual thoughts or behavior; ?? problems with urination; ?? liver problems--nausea, upper stomach pain, tiredness, loss of appetite, dark urine, zina-colored stools, jaundice (yellowing of the skin or eyes); or ?? low cortisol levels-- nausea, vomiting, loss of appetite, dizziness, worsening tiredness or weakness. Seek medical attention right away if you have symptoms of serotonin syndrome, such as: agitation, hallucinations, fever, sweating, shivering, fast heart rate, muscle stiffness, twitching, loss of coordination, nausea, vomiting, or diarrhea. Serious side effects may be more likely in older adults and those who are overweight, malnourished, or debilitated. Long-term use of opioid medication may affect fertility (ability to have children) in men or women. It is not known whether opioid effects on fertility are permanent. Common side effects include: ? dizziness, drowsiness, feeling tired; ?? feelings of extreme happiness or sadness; ?? nausea, vomiting, stomach pain; ?? constipation; or ?? headache. This is not a complete list of side effects and others may occur. Call your doctor for medical advice about side effects. You may report side effects to FDA at 4-373-KYD-1815. What other drugs will affect acetaminophen and oxycodone? You may have breathing problems or withdrawal symptoms if you start or stop taking certain other medicines. Tell your doctor if you also use an antibiotic, antifungal medication, heart or blood pressure medication, seizure medication, or medicine to treat HIV or hepatitis C. Opioid medication can interact with many other drugs and cause dangerous side effects or . Be sure your doctor knows if you also use: ? cold or allergy medicines, bronchodilator asthma/COPD medication, or a diuretic ('water pill'); ?? medicines for motion sickness, irritable bowel syndrome, or overactive bladder; ?? other narcotic medications--opioid pain medicine or prescription cough medicine; ?? a sedative like Valium--diazepam, alprazolam, lorazepam, Xanax, Klonopin, Versed, and others; ?? drugs that make you sleepy or slow your breathing--a sleeping pill, muscle relaxer, medicine to treat mood disorders or mental illness; ?? drugs that affect serotonin levels in your body--a stimulant, or medicine for depression, Parkinson's disease, migraine headaches, serious infections, or nausea and vomiting. This list is not complete. Other drugs may affect acetaminophen and oxycodone, including prescription and ynrl-twk-tkeburw medicines, vitamins, and herbal products. Not all possible interactions are listed here. Where can I get more information? Your doctor or pharmacist can provide more information about acetaminophen and oxycodone. Remember, keep this and all other medicines out of the reach of children, never share your medicines with others, and use this medication only for the indication prescribed. Every effort has been made to ensure that the information provided by [employer] is accurate, up-to-date, and complete, but no guarantee is made to that effect. Drug information contained herein may be time sensitive. [employer] information has been compiled for use by healthcare practitioners and consumers in the [place] and therefore [employer] does not warrant that uses outside of the [place] are appropriate, unless specifically indicated otherwise. [employer] drug information does not endorse drugs, diagnose patients or recommend therapy. [employer] drug information is an informational resource designed to assist licensed healthcare practitioners in caring for their patients and/or to serve consumers viewing this service as a supplement to, and not a substitute for, the expertise, skill, knowledge and judgment of healthcare practitioners. The absence of a warning for a given drug or drug combination in no way should be construed to indicate that the drug or drug combination is safe, effective or appropriate for any given patient. [employer] does not assume any responsibility for any aspect of healthcare administered with the aid of information [employer] provides. The information contained herein is not intended to cover all possible uses, directions, precautions, warnings, drug interactions, allergic reactions, or adverse effects. If you have questions about the drugs you are taking, check with your doctor, nurse or pharmacist. Copyright 7795-4374 [employer]. Version: 18.02. Revision Date: 06/08/2018. CIGARETTE SMOKING: The facts are clear, cigarette smoking will shorten your life. Smoking can cause many illnesses along the way. As a healthcare provider, we recommend that you stop smoking. Assistance with quitting is available by contacting 9-193-CXMI-NOW. This is a free resource providing counseling, support, and referral. Or you may contact your personal physician. 4 WAYS TO GET AHEAD OF SEPSIS SEPSIS is a MEDICAL EMERGENCY. Time matters! Infections put you and your family at risk for a life-threatening condition called sepsis. Sepsis is the body???s extreme response to an infection. It is life-threatening, and without timely treatment, sepsis can rapidly lead to tissue damage, organ failure, and . Sepsis happens when an infection you already have???in your skin, lungs, urinary tract or somewhere else???triggers a chain reaction throughout your body. 1 PREVENT INFECTIONS Take good care of chronic conditions. Talk to your doctor about getting the recommended vaccines. 2 PRACTICE GOOD HYGIENE Wash your hands frequently. Keep cuts or open sores clean and covered until they are healed. 3 KNOW THE SYMPTOMS Confusion or disorientation Shortness of breath High heart rate Fever, shivering, or feeling very cold Extreme pain or discomfort Clammy or sweaty skin 4 ACT FAST Get medical care IMMEDIATELY if you suspect sepsis or if you have an infection that???s not getting better or is getting worse. To learn more about sepsis and how to prevent infections, visit www.cdc.gov/sepsis. STROKE is an EMERGENCY [employer] ACT F.A.S.T! FACE ?? Facial droop ?? Uneven smile ARM ?? Arm numbness ?? Arm weakness SPEECH ?? Slurred speech ?? Difficulty speaking or understanding TIME ?? Call 911 and get to the hospital immediately Have the ambulance go to the nearest stroke center. STROKE Risk Factors High blood pressure High cholesterol Heart Disease Diabetes Smoking Heavy alcohol use Physical inactivity and obesity Atrial Fibrillation (irregular heartbeat) Family history of stroke Reminder: Be sure to sign up for the Internet [employer] patient portal, which gives you 01/02 access to your medical information ??? including these discharge instructions ??? using your computer, smartphone, or tablet. Just go to [employer] to get started. Questions? Call . [facility] would like to thank you for allowing us to assist you with your healthcare needs. IDEEJAY BILL RAY, (or operations support representative) have received the above patient education materials/instructions and have verbalized understanding: Patient Signature _ Date/Time Patient Licensed Psychologist Signature (if needed) Date/Time Clinician/Hospital Licensed Psychologist Signature (if needed) Date/Time documented in this encounter Plan of Treatment Not on file documented as of this encounter Visit Diagnoses Not on filedocumented in this encounter
--- OUTSIDE RECORDS SUMMARY | 2025-05-03 10:28 | XMS_ITS | Encounter Summary ---
Author Organization [employer] ([place], [place], [place], [place]) Address [address] [place] [address] Care Team Providers Care Structures Assembler Name Role Phone Unavailable Primary Care Provider Unavailabl e Encounter Details Date Type Department Care Team (Late st Contact Info) Description 08/19/2018 Transcribed Document [facility] [place] [facility] [place] [address] ProviderTree MD [address] [id number] Social History Tobacco Use Types Packs/Day Years Used Date Smoking Tobacco: Never Assessed Sex and Gender Information Value Date Recorded Sex Assigned at Male 01/06/2022 8:27 PM CDT Legal Sex Male 8:27 PM CDT Gender Identity Male 01/06/2022 8:27 PM CDT Sexual Orientation Not on file documented as of this encounter Miscellaneous Notes * Cerner Conversion Note - Historical ProviderMD - 08/19/2018 2:34 PM STAFF RADIATION THERAPIST PAT Adult Entered On: 08/19/2018 14:46 EST Performed On: 08/19/2018 14:34 EST by HIRAL MONTOYA RN Height and Weight, Clinical Dosing Height Source : Measured Height Entry Format : Henderson Height, Feet : 5 ft(Converted to: 152 cm, 60 Inch) Height, Inches : 8.5 Inch(Converted to: 0 ft 9 Inch, 21.59 cm) Clinical Height : 173.99 cm Weight Source : Standing scale Weight Entry Format : Henderson Clinical Dosing Weight : 101.82 kg Weight, Pounds : 224 lb Weight, Ounces : 0 oz Body Surface Area (BSA) : 2.16 m2 Body Mass Index : 33.6 kg/m2 (HI) [place] Body Weight : 69 kg HIRAL MONTOYA RN - 08/19/2018 14:34 EST Health Histories Smoking Status : Former smoker, quit more than 30 days ago Smokeless Tobacco Status : Smokeless tobacco user within last 30 days Desires Tobacco Cessation Medication : Yes HIRAL MONTOYA RN - 08/19/2018 14:34 EST Social History (As Of: 08/19/2018 14:46:47 EST) Tobacco: Former smoker, quit more than [...] (Last Updated: 08/19/2018 14:37:43 EST by HIRAL MONTOYA, TEZ) Substance Abuse: Drug Use Hx: No. Use in Last 12 Months: No. (Last Updated: 08/19/2018 14:37:49 EST by HIRAL MONTOYA RN) Home/Environment: Lives with Spouse. Living situation: Home/Independent. (Last Updated: 08/19/2018 14:39:03 EST by HIRAL MONTOYA RN) Employment/School: Employed (Last Updated: 08/19/2018 14:39:10 EST by HIRAL MONTOYA, TEZ) Infectious Disease History Infectious Disease History : Chicken pox/Shingles, Measles, Mumps Active Surveillance Screen Assessment : Patient does not meet any of above criteria Active Surveillance Screen Negative : Yes Travel To Regions with Travel Advisories : No Travel Outside [place] Within Last 30 Days : No Contact With Traveler to Advisory Region : No HIRAL MONTOYA RN - 08/19/2018 14:34 EST Anesthesia/Transfusion History Family History of Anesthesia Reaction : No prior transfusion(s) Blood Transfusion Acceptable to Patient : Yes Transfusion History : No prior anesthesia Family History of Anesthesia Reaction : None HIRAL MONTOYA RN - 08/19/2018 14:34 EST Functional Assessment Functional ADL Evaluation Index EBN Bathing : Independent (2) Dressing : Independent (2) Toileting : Independent (2) Transferring Bed or Chair : Independent (2) Continence : Independent (2) Feeding : Independent (2) HIRAL MONTOYA RN - 08/19/2018 14:34 EST ADL Index Score : 12 HIRAL MONTOYA RN - 08/19/2018 14:34 EST Advance Directive Patient has Advance Directive *Q : No, patient requests information about Advance Directive HIRAL MONTOYA RN - 08/19/2018 14:34 EST Spiritual/Cultural Needs Any Spiritual/Cultural Needs or Requests : No HIRAL MONTOYA RN - 08/19/2018 14:34 EST Psychosocial History Currently in Unsafe Situation : No Tried to Harm Yourself in the Past? : No Thoughts of Harming/Killing Yourself : No HIRAL MONTOYA RN - 08/19/2018 14:34 EST Education Topics, Periop Preadmission Perioperative Education Grid Arrival Time/Place : Verbalizes understanding CHG Preoperative Bathing/Cloths : Verbalizes understanding Falls : Verbalizes understanding Infection Control : Verbalizes understanding IV's : Verbalizes understanding NPO Status/Directions : Verbalizes understanding Pain Management : Verbalizes understanding Preprocedure Preparations : Verbalizes understanding Preprocedure Tests/Labs : Verbalizes understanding Remove Body Piercings : Verbalizes understanding Take/Hold Medications Pre-Procedure : Verbalizes understanding HIRAL MONTOYA RN - 08/19/2018 14:34 EST General Info Arrived From : Home Mode of Arrival on Unit : Ambulatory Legal Guardian : Spouse Support Person/Patient Home Furnishings Sales Representative : Yes Support Person/Pt Rep Name : Wellington Howell - Support Person/Pt Rep Contact Information : [phone] Want Family/Rep/Phys Notified of Admit : No Emergency Contact #1 : Wellington Howell Emergency Contact #1 Emergency Contact #1 Relationship : Emergency Contact #2 : na Emergency Contact #2 Phone Number : na Emergency Contact #2 Relationship : na Information Obtained From : Patient Primary Language : Turkmen Preferred Communication Mode : Verbal Communication Barrier : None Objects to Sharing Info w Family : No Clinical Trials Participant *Q : None CTP, None *Q : Yes HIRAL MONTOYA RN - 08/19/2018 14:34 EST Jacques Scale Jacques Sensory Perception : No impairment Jacques Moisture : Rarely moist Jacques Activity : Walks frequently Jacques Mobility : Slightly limited Jacques Nutrition : Adequate Jacques Friction and Shear : No apparent problem Jacques Score : 21 HIRAL MONTOYA RN - 08/19/2018 14:34 EST Sleep Apnea Risk Assmt Hx of [...] Comment : sleep Apnea test wa negative HIRAL MONTOYA RN - 08/19/2018 14:34 EST Electronically signed by Amira, [facility] Conversion Wall Scraper Cerner at 10/27/2022 8:04 PM CDT documented in this encounter Plan of Treatment Not on file documented as of this encounter Visit Diagnoses Not on filedocumented in this encounter
--- OUTSIDE RECORDS SUMMARY | 2025-05-03 10:28 | XMS_ITS | Encounter Summary ---
Author Organization Healthcare Address [address] [place] [address] Care Team Providers Care Cylinder Block Mechanic Name Role Phone Parrish Thurman MD Primary Care Provider + [phone] Encounter Details Date Type Department Care Team ([facility] st Contact Info) Description 03/19/2025 Telephone [facility] Hematology/BMT and Cellular Therapy Program [address] [phone] Mohit Villarreal MD [address] [facility] [address] [place] [address] Social History Tobacco Use Types Packs/Day Years [...] [facility] were you [facility] or living in [...] drink first t kiet in the morning (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 file Not on file Not on file documented as of this encounter Miscellaneous Notes * Telephone Encounter - Natalie Andrews RN - 03/19/2025 2:16 PM EDT RN returned call and spoke with patient. No later appointments available on 03/22 but can make note for future appointments. Patient V/U. * Telephone Encounter - Dawn Hernandez - 03/19/2025 12:34 PM EDT Callback number: [phone] Patient is wanting to moved his appts on 03/22 later in the day. documented in this encounter Plan of Treatment Upcoming Encounters Date Type Department Care Team (Late st Contact Info) Description 05/28/2025 1:00 PM EST Office Visit Medical Office Building [facility] [address], [address] [place] [address] Afshan Bryan MD [address] [place] [address] documented as of this encounter [...] documented as of this encounter Care Teams Cylinder Block Mechanic Relationship Specialty Start Date End Date Parrish Thurman MD [address] [facility] [address] [place], [place] [id number] PCP - General 10/19/24 documented as of this encounter
--- OUTSIDE RECORDS SUMMARY | 2025-05-03 10:28 | XMS_ITS | Encounter Summary ---
Author Organization [employer] ([place], [place], [place], [place]) Address [address] [place] [address] Care Team Providers Care Night Court Magistrate Name Role Phone Unavailable Primary Care Provider Unavailabl e Encounter Details Date Type Department Care Team (Late st Contact Info) Description 08/30/2018 Transcribed Document [facility] [place] [facility] [place] [address] ProviderTree MD [address] [place], [place] [id number] Social History Tobacco Use Types Packs/Day Years Used Date Smoking Tobacco: Never Assessed Sex and Gender Information Value Date Recorded Sex Assigned at Male 01/06/2022 8:27 PM CDT Legal Sex Male 8:27 PM CDT Gender Identity Male 01/06/2022 8:27 PM CDT Sexual Orientation Not on file documented as of this encounter Miscellaneous Notes * Cerner Conversion Note - Tree ProviderMD - 08/30/2018 12:[address] JUSTICE [facility] Main OR Preop Summary Primary Physician: BEATRIZ RAWLS MD-ORT Finalized Date/Time: 08/30/18 13:52:13 Pt. Name: DEEJAY PETRA JACKSON D.O.B./Sex: 1955 Male Med Rec #: [id number] Physician: BEATRIZ RAWLS MD-ORT Financial #: [id number] Pt. Type: O Room/Bed: /6 Admit/Disch: 08/30/18 06:24:00 - Institution: [facility] PreOp Case Times Entry 1 In Preop 08/30/18 05:35:00 Ready for Holding n/a Room Patient Ready for 08/30/18 10:45:00 Surgery Patient Out of Preop 08/30/18 12:03:00 Patient Out of n/a Holding Room Last Modified By: TANA SAENZ RN 08/30/18 13:52:11 [facility] PreOp Case Times Audit 08/30/18 13:52:11 Heat Treat Technician: MONICO Modifier: BOWLINC <+> 1 Patient Out of Preop 08/30/18 10:52:31 Heat Treat Technician: MONICO Modifier: BOWLINC <+> 1 Patient Ready for Surgery Finalized By: TANA SAENZ RN Document Signatures Signed By: TANA SAENZ RN 08/30/18 13:52 Electronically signed by Amira [facility] Conversion [employer] Principal Cerner at 10/27/2022 8:06 PM CDT documented in this encounter Plan of Treatment Not on file documented as of this encounter Visit Diagnoses Not on filedocumented in this encounter
--- OUTSIDE RECORDS SUMMARY | 2025-05-03 10:28 | XMS_ITS | Encounter Summary ---
Author Organization [employer] ([place], [place], [place], [place]) Address [address] [place] [address] Care Team Providers Care Block Inspector Name Role Phone Unavailable Primary Care Provider Unavailabl e Encounter Details Date Type Department Care Team (Late st Contact Info) Description 08/30/2018 Transcribed Document [facility] [place] [facility] [address] ProviderTree MD [facility] [place] [id number] Social History Tobacco Use Types Packs/Day Years Used Date Smoking Tobacco: Never Assessed Sex and Gender Information Value Date Recorded Sex Assigned at Male 01/06/2022 8:27 PM CDT Legal Sex Male 8:27 PM CDT Gender Identity Male 01/06/2022 8:27 PM CDT Sexual Orientation Not on file documented as of this encounter Miscellaneous Notes * Cerner Conversion Note - Tree Alonso MD - 08/30/2018 2:42 PM WEB SERVICES MANAGER DATE OF PROCEDURE:08/30/2018 PREOPERATIVE DIAGNOSIS(ES): Right knee osteonecrosis, medial femoral condyle with degenerative arthritis. POSTOPERATIVE DIAGNOSIS(ES): Right knee osteonecrosis, medial femoral condyle with degenerative arthritis. PROCEDURE: Right total knee replacement. SURGEON: Jakob Kimble MD INTERPRETER FOR THE DEAF: Jakob Celaya PA-C ANESTHESIA: Regional block with general. INDICATIONS: A 62-year-old gentleman, who has had increasing pain over the last two years, found to have osteonecrosis of the medial femoral condyle. The reason for the operation, operative risks, potential complications were explained to the patient. He desired to proceed with surgery. He was seen in preop anesthesia area, went over preop anesthesia sheet, H and P, and consent, verified that information, and once his potassium was re-established to normal level, we were able to proceed with the surgery. DESCRIPTION OF PROCEDURE: He was seen in preop anesthesia area, then the idalia was applied to his correct knee and taken to the operating room at which time a time-out was performed to verify that information. We then proceeded with surgery having had the regional block already instilled. He was induced and maintained under general anesthesia, sterilely prepped and draped, and after elevation and exsanguination, high-thigh tourniquet was inflated. Incision was made proximal to the patella, opened the patella to the tibial tubercle, taken down sharply through skin and subcu tissue, incised the quadriceps tendon, medial retinaculum. Medial periosteal sleeve was elevated off the proximal medial tibia. Everted the patella, flexed the knee, drilled the distal femur and the proximal tibia to the intramedullary spaces. Put in the femoral alignment guide set at 5 degrees. Made our distal femoral cut, used the four-in-one chamfer guide, made that cut having sized the femur at a 10. Reviewed resected portion of the fat pad. Dissected around the patella, resected the patella, found that it was sized at 41. Drilled the patellar pegs. Excized both menisci. Cut the distal tibia with intramedullary guide, found that the initial cut was not deep enough, went back, cut 2 mm more and we were able to then establish a good gap. It was determined that the tibia was best treated with a size F. We oriented it properly with the tibial tubercle and cut it with a 3 degree posterior slope. Put in the tibial trial, femoral trial, and patellar trial with the 10 mm spacer medial congruent. We had some difficulty getting spacer and finally got, but found that when we flexed the knee that it opened up anteriorly. There was a CAM effect due to the PCL being intact. Therefore, removed the PCL that negated the CAM effect and found that indeed there was a good fit. The patella also tracked well. We had copiously irrigated the bony surfaces with Betadine saline, dried them, and cemented all three components. Once with the trial tibial spacer, removed excess cement in the process and after it had dried. Exchanged the trial spacer for a permanent spacer. Reduced the knee. Copiously irrigated with Betadine saline solution. Put in a drain, brought out distal laterally and was put in the lateral gutter. Closed the quadriceps, medial retinaculum with 3-0 Vicryl single sutures and then ran the layer with #2 Quill. Subcu was closed with 0 Quill. Skin was closed with 2-0 Monocryl Quill followed by a dressing of Prineo Dermabond and Aquacel dressing. The drain was brought out distal laterally, had two Covaderm placed over it, was taped into place. A long Joe wrap was used to wrap the leg and knee immobilizer was applied. Patient was awakened, taken to recovery room in stable condition, tolerated the procedure without apparent complication. Jakob Kimble M.D. Dict: 08/30/2018 14:42:00 Trans: 08/30/2018 18:49:09 CC1: Jakob Kimble M.D. documented in this encounter Plan of Treatment Not on file documented as of this encounter Visit Diagnoses Not on filedocumented in this encounter
--- OUTSIDE RECORDS SUMMARY | 2025-05-03 10:28 | XMS_ITS | Referral Summary ---
Author Organization [employer] ([place], [place], [place], [place]) Address [address] [place] [address] Care Team Providers Care C++ Quant Developer Name Role Phone Unavailable Primary Care Provider Unavailabl e Social History Tobacco Use Types Packs/Day Years Used Date Smoking Tobacco: Never Assessed Sex and Gender Information Value Date Recorded Sex Assigned at Male 01/06/2022 8:27 PM CDT Legal Sex Male 8:27 PM CDT Gender Identity Male 01/06/2022 8:27 PM CDT Sexual Orientation Not on file Plan of Treatment Not on file
--- OUTSIDE RECORDS SUMMARY | 2025-05-03 10:28 | XMS_ITS | Encounter Summary ---
Author Organization [employer] ([place], [place], [place], [place]) Address [address] [place] [address] Care Team Providers Care Livestock Slaughterer Name Role Phone Unavailable Primary Care Provider Unavailabl e Encounter Details Date Type Department Care Team (Late st Contact Info) Description 08/31/2018 Transcribed Document [facility] [place] [facility] [place] [address] ProviderTree MD [address] [phone] Social History Tobacco Use Types Packs/Day Years Used Date Smoking Tobacco: Never Assessed Sex and Gender Information Value Date Recorded Sex Assigned at Male 01/06/2022 8:27 PM CDT Legal Sex Male 8:27 PM CDT Gender Identity Male 01/06/2022 8:27 PM CDT Sexual Orientation Not on file documented as of this encounter Miscellaneous Notes * Cerner Conversion Note - Tree ProviderMD - 08/31/2018 7:26 AM GRADUATE TEACHING ASSISTANT Care Management Assessment/Plan Entered On: 08/31/2018 11:28 EST Performed On: 08/31/2018 11:26 EST by Christina Meyers RN Care Management Note Care Management Note : [id number] Documentation Status Complete : Yes Christina Meyers RN - 08/31/2018 11:26 EST Patient History Information Obtained from, Care Mgt : Patient, Medical Record Emergency Contact #1 : Wellington Howell Emergency Contact #1 Emergency Contact #1 Relationship : Emergency Contact #2 : na Emergency Contact #2 Phone Number : na Emergency Contact #2 Relationship : na Living Situation : Home Patient Lives With : Spouse Mobility Assistance Prior to Admission : Independent Current Daily Living Assistance : ADLs Professional Skilled Services : None Current Home Treatments : None Home Equipment : Commode Patient History Note : 62 yo male pt s/p RTKA. Met with pt at bedside this am to discuss DCP. FRW obtained from [facility] and has been delivered to pt's room. Referral sent to [facility] via [facility] for HHC and informed liaison Aminah. No other CM needs identified. Christina Meyers RN - 08/31/2018 11:26 EST Ant. DC Needs/Initial Plan Anticipated Discharge Needs, Care Management : Equipment needs, Home health Anticipated Home Care Needs : Physical Therapy Anticipated Equipment Needs : Walker Christina Meyers RN - 08/31/2018 11:26 EST Discharge Planning Details Discharge Home : Home, Home health (related) Discharge Home Care Needs : Physical Therapy Christina Meyers RN - 08/31/2018 11:26 EST Info/List/Choices Provided Patient Offered Choice/Affiliations Explained : Yes List/Info Provided Pt/Fam/Support Person : Durable medical equipment, Home health Christina Meyers RN - 08/31/2018 11:26 EST Final Discharge Disposition Note-CM Final Discharge Disposition Note-CM : Pt dc'd home today. Discharge To Care Management : Home Health Services (Related/SOC within 3 days)-06 Christina Meyers RN - 08/31/2018 11:26 EST documented in this encounter Plan of Treatment Not on file documented as of this encounter Visit Diagnoses Not on filedocumented in this encounter
--- OUTSIDE RECORDS SUMMARY | 2025-05-03 10:28 | XMS_ITS | Clinical Summary ---
Author Organization [employer] ([place], [place], [place], [place]) Address [address] [place] [address] Care Team Providers Care Exterior Designer Name Role Phone Unavailable Primary Care Provider [...]
--- OUTSIDE RECORDS SUMMARY | 2025-05-03 10:28 | XMS_ITS | Encounter Summary ---
Author Organization [employer] ([place], [place], [place], [place]) Address [address] [place] [address] Care Team Providers Care Flight Operations Inspector Name Role Phone Unavailable Primary Care Provider Unavailabl e Encounter Details Date Type Department Care Team (Late st Contact Info) Description 08/30/2018 Transcribed Document [facility] [place] Family Medicine [facility] [place] [address] ProviderTree MD [address] [place] [address] Social History Tobacco Use Types Packs/Day Years Used Date Smoking Tobacco: Never Assessed Sex and Gender Information Value Date Recorded Sex Assigned at Male 01/06/2022 8:27 PM CDT Legal Sex Male 8:27 PM CDT Gender Identity Male 01/06/2022 8:27 PM CDT Sexual Orientation Not on file documented as of this encounter Miscellaneous Notes * Cerner Conversion Note - Historical ProviderMD - 08/30/2018 2:59 PM PAINT SPRAY TENDER Pain Assessment Entered On: 08/31/2018 15:30 EST Performed On: 08/31/2018 16:27 EST by Xochilt Ba RN Intervention Information: oxyCODONE Performed by Xochilt Ba RN on 08/31/2018 15:27:00 EST oxyCODONE,10mg Oral,Pain (Severe 7-10) Pain Assessment Pain Scale Goal : 4 Pain Consult, Notes : patient d/c prior to reassessment due Xochilt Ba RN - 08/31/2018 15:30 EST Electronically signed by Amira [facility] Conversion Agricultural Appraiser Cerner at 10/30/2022 9:19 AM CDT documented in this encounter Plan of Treatment Not on file documented as of this encounter Visit Diagnoses Not on filedocumented in this encounter
--- OUTSIDE RECORDS SUMMARY | 2025-05-03 10:28 | XMS_ITS | Encounter Summary ---
Author Organization [employer] ([place], [place], [place], [place]) Address [address] [place] [address] Care Team Providers Care Apprentice Painter Neckties Name Role Phone Unavailable Primary Care Provider Unavailabl e Encounter Details Date Type Department Care Team (Late st Contact Info) Description 08/31/2018 Transcribed Document [facility] [place] [facility] [place] [address] ProviderTree MD [address], [place] [id number] Social History Tobacco Use Types Packs/Day Years Used Date Smoking Tobacco: Never Assessed Sex and Gender Information Value Date Recorded Sex Assigned at Male 01/06/2022 8:27 PM CDT Legal Sex Male 8:27 PM CDT Gender Identity Male 01/06/2022 8:27 PM CDT Sexual Orientation Not on file documented as of this encounter Miscellaneous Notes * Cerner Conversion Note - Historical ProviderMD - 08/31/2018 7:20 AM INSPECTOR WELDED PARTS Patient: PETRA VILLALBA Age: 62 years Sex: Male : 1955 Associated Diagnoses: None Author: BEATRIZ RAWLS MD-ORT Had trouble urinating, little placed and still in. WIll start on flomax, send home with little and have him see urologist. documented in this encounter Plan of Treatment Not on file documented as of this encounter Visit Diagnoses Not on filedocumented in this encounter
--- OUTSIDE RECORDS SUMMARY | 2025-05-03 10:28 | XMS_ITS | Encounter Summary ---
Author Organization [employer] ([place], [place], [place], [place]) Address [address] [place] [address] Care Team Providers Care Pill Maker Name Role Phone Unavailable Primary Care Provider Unavailabl e Encounter Details Date Type Department Care Team (Late st Contact Info) Description 09/02/2018 Transcribed Document [facility] [place] [address] ProviderTree MD [address] [place], [place] [id number] Social History Tobacco Use Types Packs/Day Years Used Date Smoking Tobacco: Never Assessed Sex and Gender Information Value Date Recorded Sex Assigned at Male 01/06/2022 8:27 PM CDT Legal Sex Male 8:27 PM CDT Gender Identity Male 01/06/2022 8:27 PM CDT Sexual Orientation Not on file documented as of this encounter Miscellaneous Notes * Cerner Conversion Note - Tree ProviderMD - 09/02/2018 1:30 PM DENTAL PROFESSIONAL Post Visit Phone Call Entered On: 09/02/2018 13:33 EST Performed On: 09/02/2018 13:30 EST by JUAN FRAZIER Rn-Ortho Nurse Navigator Post Visit Phone Call Post Visit Phone Call History : First call Phone Number : [phone] Contact Relationship to Patient : Spouse Emergency Room Visit Since DC : No Adequate Pain Control After Visit : Yes Surgical Dressing Clean/Dry/Intact : Yes Surgical Site Free of Redness/Swelling/Drainage : Yes Symptoms of Fever : No Symptoms of Nausea or Vomiting : No Adequate Fluid Intake : Yes Food Intake, Post Visit : Fair Bowel/Bladder Concerns : No Mobility Progressing or Maintained as Expected : Yes Discharge Instructions Understood : Yes Follow-Up Actions : Reviewed discharge instructions Post Visit Comments : No BM as yet, Instructed to take a laxative- states she was on the way to go buy one. Urology appointment made with Dr. Eugene in [place] on 09/05/18 at 2:15. states understanding. JUAN FRAZIER, Rn-Ortho Nurse Navigator - 09/02/2018 13:30 EST Electronically signed by Amira [facility] Conversion Weatherization Administrator Cerner at 10/27/2022 8:06 PM CDT documented in this encounter Plan of Treatment Not on file documented as of this encounter Visit Diagnoses Not on filedocumented in this encounter
--- OUTSIDE RECORDS SUMMARY | 2025-05-03 10:28 | XMS_ITS | Clinical Summary ---
Author Organization [facility] Address [address] [place] [address] Care Team Providers Care Sugar Mixer Name Role Phone Parrish Thurman MD Primary Care Provider + [phone] Allergies Active Allergy Reactions Criticality Noted Date Comments Pollen Extract Cough Low 10/26/2024 Grass and trees environment Medications Fluticasone-Umecli din-Vilant (Trelegy Ellipta) 100-62.5-25 MCG/ACT aerosol powder Inhale 1 puff in the morning. Active acetaminophen (Tylenol) 500 MG tablet Take 2 tablets by mouth every 6 hours as needed for pain. 100 tablet 5 Active senna-docusate sodium (Senokot-S) 8.6-50 MG tablet Take 1 tablet by mouth 2 (two) times a day. 28 tablet 5 Active oxyCODONE (Roxicodone) 5 MG immediate release tablet Take 1 tablet by mouth every 6 hours as needed for moderate pain or severe pain. 30 tablet 5 Active prochlorperazine (Compazine) 10 MG tabletIndications: Multiple myeloma not having achieved remission (CMS/HCC) Take 1 tablet by mouth every 6 hours as needed for nausea or vomiting. 30 tablet 3 5 Active polyethylene glycol (MiraLax) 17 g packet Take 17 g by mouth daily as needed (constipation ). 30 each 5 Active naloxone (Narcan) 4 mg/0.1 mL nasal spray 1. Give 1 spray in nostril for no/slow breathing or cannot wake after opioid use 2. Call 911 3. Repeat in other nostril if symptoms continue 1 each 5 Active Calcium Carbonate-Vitamin D (calcium-vitamin D) 500-200 MG-UNIT tabletIndications: Hypocalcemia Take 1 tablet by mouth daily. 30 tablet 11 5 01/21/20 26 Active irbesartan-hydroCH LOROthiazide (Avalide) 150-12.5 MG tablet Take 1 tablet by mouth daily. 5 Active traMADol (Ultram) 50 MG tablet TAKE 1 TABLET BY MOUTH EVERY 8 HOURS NEEDED FOR SEVERE PAIN 60 tablet 5 Active methocarbamol (Robaxin) 500 MG tabletIndications: Degeneration of intervertebral disc of lumbar region with discogenic back pain and lower extremity pain TAKE 1 TABLET BY MOUTH EVERY 6 HOURS NEEDED FOR MUSCLE SPASM 60 tablet 5 Active acyclovir (Zovirax) 400 MG tabletIndications: Multiple myeloma not having achieved remission (CMS/HCC) Take 2 tablets by mouth 2 times a day. 120 tablet 3 5 Active potassium chloride CR (Klor-Con M20) 20 MEQ ER tablet Take 1 tablet by mouth 2 times a day. Do not crush or chew. 60 tablet 1 Active gabapentin (Neurontin) 300 MG capsule Take 1 capsule by mouth nightly. 30 capsule 1 5 Active lenalidomide (Revlimid) 15 MG capsuleIndications :Multiple myeloma not having achieved remission (CMS/HCC) Take 1 capsule by mouth daily. Take for 14 days, then off 14 days. 28 day cycle. Take whole with water. Do not break, chew, or open. 14 capsule Active Active Problems Problem Noted Date Diagnosed Date [...] 11/08/2024 Cancer Staging:Clinical stage from 11/13/2024:RISS Stage III(Rncg-5-tpqoycuajzwep (mg/L): 7.7, Albumin (g/dL): 3.6, ISS: Stage [...] 09/08/2010 Monoclonal gammopathy 10/27/2024 Overview (11/10/2024): IgG Fromberg Resolved Problems Problem Noted Date Diagnosed Date Resolved Date Chronic obstructive pulmonar y disease with acute lower respiratory infection 01/25/20252024 COPD (chronic obstructive pu lmonary disease) with acute bronchitis 05/13/2016 04/01/2025 Encounters Date Type Department Care Team Description 04/27/2025 Refill [facility]BMT [facility] Cellular Therapy [facility] [address] [place] [address] Mohit Villarreal MD Multiple myeloma not having achieved remission (CMS/HCC) 04/26/2025 Telephone [facility] [address] [place] [phone] Victorina Hurt, PharmD 04/18/2025 Telephone [facility] [address] [place] [phone] Mohit Villarreal MD 04/05/2025 2:00 PM EDT - 04/05/2025 11:59 PM EDT Hospital Encounter [facility] [address] [place] [address] Multiple myeloma, remission status unspecified (CMS/HCC) (Primary Dx) Discharge Disposition: Home or Self Care 04/05/2025 Travel 03/27/2025 Orders Only [facility] [address] [place] [address] Natalie Andrews RN Multiple myeloma, remission status unspecified (CMS/HCC) (Primary Dx) 03/27/2025 Refill [facility] [address] [place] [address] Mohit Villarreal MD Multiple myeloma not having achieved remission (CMS/HCC) 03/23/2025 Orders Only [facility] [address] [place] [address] Natalie Andresw RN Multiple myeloma, remission status unspecified (CMS/HCC) (Primary Dx) 03/22/2025 10:28 AM EDT - 03/22/2025 11:59 PM EDT Hospital Encounter [facility] [address] [place] [address] Multiple myeloma, remission status unspecified (CMS/HCC) (Primary Dx) Discharge Disposition: Home or Self Care 03/22/2025 9:00 AM EDT Office Visit [facility] [address] [phone] Mohit Villarreal MD Multiple myeloma, remission status unspecified (CMS/HCC) (Primary Dx); Multiple myeloma not having achieved remission (CMS/HCC); Age-related osteoporosis without current pathological fracture 03/22/2025 8:30 AM EDT Clinical Support [facility] [address] [place] [address] Ginger Menjivar RN 03/22/2025 Travel 03/21/2025 Orders Only [facility] [address] [phone] Natalie Andrews RN Multiple myeloma not having achieved remission (CMS/HCC) (Primary Dx) 03/19/2025 Refill [facility] [address] [phone] Mohit Villarreal MD Multiple myeloma not having achieved remission (CMS/HCC) 03/19/2025 Telephone [facility] [address] [phone] Mohit Villarreal MD 03/08/2025 2:00 PM EDT - 03/08/2025 11:59 PM EDT Hospital Encounter [facility] [address] [place] [address] Multiple myeloma, remission status unspecified (CMS/HCC) (Primary Dx) Discharge Disposition: Home or Self Care 03/08/2025 Travel 03/01/2025 Refill [facility] Therapy [facility] [address] [phone] Bernice Mason APRN Degeneration of intervertebral disc of lumbar region with discogenic back pain and lower extremity pain 03/01/2025 Refill [facility] [address] [phone] Mohit Villarreal MD 02/27/2025 Refill [facility] [address] [phone] Mohit Villarreal MD Multiple myeloma not having achieved remission (CMS/HCC) 02/23/2025 1:40 PM EDT Office Visit Medical Office Building [facility] [address] [facility], [address] [place] [address] Rajiv Garcias MD Thoracic spine pain (Primary Dx) 02/23/2025 1:34 PM EDT - 02/23/2025 11:59 PM EDT Hospital Encounter Medical Office Building Radiology [address] [place] [address] Thoracic spine pain Discharge Disposition: Home or Self Care 02/23/2025 Travel 02/22/2025 12:00 PM EDT - 02/22/2025 11:59 PM EDT Hospital Encounter [facility] [address] [place] [address] Multiple myeloma, remission status unspecified (CMS/HCC) (Primary Dx) Discharge Disposition: Home or Self Care 02/22/2025 10:30 AM EDT Office Visit [facility] Therapy [facility] [address] [phone] Bernice Mason, LARRY Multiple myeloma not having achieved remission (CMS/HCC) (Primary Dx); Encounter for antineoplastic immunotherapy; Encounter for monitoring lenalidomide therapy; Bilateral lower extremity edema 02/22/2025 10:00 AM EDT Clinical Support [facility] [address] [phone] 02/22/2025 Travel 02/21/2025 Orders Only [facility] Therapy [facility] [address] [phone] Mohit Villarreal MD Multiple myeloma, remission status unspecified (CMS/HCC) (Primary Dx) 02/20/2025 Orders Only [facility] Therapy [facility] [address] [phone] Messi Melissa, PharmD 02/14/2025 Orders Only [facility] Therapy [facility] [address] [phone] Donna Sweet, PharmD Multiple myeloma, remission status unspecified (CMS/HCC) (Primary Dx) 02/13/2025 Telephone [facility] [address] [phone] Bernice Mason, LARRY 02/08/2025 1:27 PM EDT - 02/08/2025 11:59 PM EDT Hospital Encounter [facility] [address] [place] [phone] Multiple myeloma, remission status unspecified (CMS/HCC) (Primary Dx) Discharge Disposition: Home or Self Care 02/08/2025 Travel 01/31/2025 Refill [facility]BMT [facility] Cellular Therapy [facility] [address] [facility] [place] [phone] Mohit Villarreal MD Multiple myeloma not having achieved remission (CMS/HCC) from Last 3 Months Immunizations Immunization Administration Dates Next Due Influenza, High-dose, Split Virus, Trivalent, Injectable, preservative free 04/28/2024 Influenza, high-dose, quadrivalent 03/23/2023, Influenza, injectable, quadr ivalent, preservative free 05/13/2019,04/27/2018,05/23/2016 Influenza, seasonal, injectable 04/11/2018,05/12 Pneumococcal 20-leyla Conj Vaccine 05/14/2022 Pneumococcal Polysaccharide PPV23 02/07/2017 Rsvpref, Recombinant, Protei n Subunit, Adjuvent 03/23/2023 Tdap 08/17/2013 Family History Medical History Relation Name Comments No Known Problems Daughter Heart attack Father age 86 No Known Problems Mother 84yo Other cancer Other No Known Problems Sister Diabetes Son substance ab Son Malig Hyperthermia Neg Hx Relation Name Status Comments Daughter Alive Father Mother Other Sister Alive Son Alive Social History Tobacco Use Types Packs/Day Years [...] any time in the past 12 m [facility], were you homeless or living [...] drink first t kiet in the 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 0 10/26/2024 CAGE Questionnaire Score 0 025 Utilities Answer Date Recorded In the past 12 months has e electric, gas, oil, or water company threatened to shut off services in your home? 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 file Not on file Not on file Last Filed Vital Signs Vital Sign Reading [...] Mass Index 36.4 04/05/2025 2:14 PM EDT Plan of Treatment Upcoming Encounters Date Type Department Care Team (Late st Contact Info) Description 05/28/2025 1:00 PM EST Office Visit Medical Office Building [facility] [address] [facility], [address] [place] [address] Afshan Bryan MD [address] [facility] [address] [place] [address] Health Maintenance Due Date Last Done Comments [facility]-Bone Density Scan 1955 [facility]-Hepatitis C Screening 1955 [facility]-Medicare Annual Wellness (AWV) 1955 [facility]-/Child/Adol SDOH Screenings 1955 [facility]-Zoster Vaccines (1 of 2) 10/21/1975 CT Colonography 2001 Colonoscopy 2001 FIT-DNA 2001 FIT 2001 FOBT 2001 Sigmoidoscopy 2001 [facility]-Colorectal Cancer Screening 2001 [facility]-Abdominal Aortic Aneurysm (AAA) Screening 2021 [facility]-DTaP,Tdap,and Td Vaccines (2 - Td or Tdap) 08/17/2023 08/17/2013 [id number] Vaccine ( season) 2025 06/19/2024, 06/02/2023, 05/14/2022, Additional history exists [facility]-Influenza Vaccine (#1) 03/12/202504/28, 03/23/2023, 05/14/2022, Additional history exists [facility]- SDOH Screenings 03/17/2025 [facility]-Adult SDOH Screenings 03/17/2025 09/14/2024 [facility]-Depression Screening 12/14/2025 12/14/2024 [facility]-Pneumococcal Vaccine: 50+ Years Completed 05/14/2022, 02/07/2017 [facility]-RSV Vaccine: 60+ Years or Completed 03/23/2023 [facility]-Obesity Intervention Completed 025, 03/08/2025, 02/23/2025, Additional history exists HPV Vaccines Aged Out No longer eligi ble based on patient's age to complete this topic [facility]-HIB Vaccines Aged Out No longer e ligible based on patient's age to complete this topic [facility]-Hepatitis A Vaccines Aged Out No longer eligible based on patient's age to complete this topic [facility]-IPV Vaccines Aged Out No longer e ligible based on patient's age to complete this topic [facility]-Rotavirus Vaccines Aged Out No lo nger eligible based on patient's age to complete this topic Goals Goal Patient Goal Type Associated Problems Recent Progress Patient-Stated? Author Autogenerat ed Goal Care Plan Autogenerated Problem No Rajiv Garcias MD Medical Devices Implanted Type Area Fibre Optic Cable Splicer Device Identifier Shelf Expiration Date Model / Serial / Lot Knee Knee Right: Knee Jacinto Viper2 Straight 400mm - [id number] Implanted:Qty: 1 on 09/14/2024 by Rajiv Garcias MD at [facility] N/A: Spine Thoracic [employer] LP-[id number] 09/15/2024 [id number] / / Chip Bone 20cc - [id number] - [id number] Implanted:Qty: 1 on 09/14/2024 by Rajiv Garcias MD at [facility] N/A: Spine Thoracic [id number] 05/25/2029 PCAN1/4 / [id number] / [id number] Matrix Fibergraft Bg Lg 12.5cc - [id number] Implanted:Qty: 1 on 09/14/2024 by Rajiv Garcias MD at [facility] N/A: Spine Thoracic [employer] LP-[id number] 12/16/2026 [id number] / / [id number] Screw 5.5mm Expedium Verse Fen 5mm X 35mm - [id number] Implanted:Qty: 2 on 09/14/2024 by Rajiv Garcias MD at [facility] N/A: Spine Thoracic [employer] LP-112175 09/15/[id number] / / Screw 5.5mm Expedium Verse Fen 5mm X 40mm - [id number] Implanted:Qty: 2 on 09/14/2024 by Rajiv Garcias MD at [facility] N/A: Spine Thoracic [employer]ine [employer] LP-617891 09/15/[id number] / / Screw 5.5mm Expedium Verse Fen 5mm X 45mm - [id number] Implanted:Qty: 2 on 09/14/2024 by Rajiv Garcias MD at [facility] N/A: Spine Thoracic [employer]ine [employer] LP-[id number] 09/15/[id number] / / Screw 5.5mm Expedium Verse Fen 6mm X 45mm - [id number] Implanted:Qty: 2 on 09/14/2024 by Rajiv Garcias MD at [facility] N/A: Spine Thoracic [employer] LP-[id number] 09/14/[id number] / / Screw Set 5.5mm Expedium Verse Unitized - [id number] Implanted:Qty: 8 on 09/14/2024 by Rajiv Garcias MD at [facility] N/A: Spine Lumbar [employer] Spine [employer] LP-500545 09/14/2025 / / Matrix Fibergraft Bg Medium 6.25cc - [id number] Implanted:Qty: 1 on 10/25/2024 by Rajiv Garcias MD at [facility] Spine Lumbar [employer] LP-[id number] 05/25/2027 [id number] / / [id number] Confidence Spinal Cement System Plus 11cc - [id number] Implanted:Qty: 1 on 10/25/2024 by Rajiv Garcias MD at [facility] N/A: Spine Lumbar [employer] LP-144150 05/11/2026 [id number] / / [id number] Screw 5.5mm Expedium Verse Fen 6mm X 45mm - [id number] Implanted:Qty: 4 on 10/25/2024 by Rajiv Garcias MD at [facility] N/A: Spine Lumbar De[employer] Spine [employer] LP-534893 10/25/[id number] / / Screw Set 5.5mm Expedium Verse Unitized - [id number] Implanted:Qty: 10 on 10/25/2024 by Rajiv Garcias MD at [facility] N/A: Spine Lumbar De[employer] Spine [employer] LP-325887 10/25/[id number] / / Jacinto Viper2 Straight 480mm - [id number] Implanted:Qty: 1 on 10/25/2024 by Rajiv Garcias MD at [facility] N/A: Spine Lumbar De[employer]uy Spine Sales LP-707295 10/25/2025 [id number] / / Chip Bone 40cc - [id number] - [id number] Implanted:Qty: 1 on 10/25/2024 by Rajiv Garcias MD at [facility] Spine Lumbar [facility]-548398 08/24/2029 PCAN1/2 / [id number] / [id number] Procedures Procedure Name Priority Date/Time Associated Diagnosis Comments CBC WITH AUTO DIFFERENTIAL Routine 04/05/2025 2:20 PM EDT Multiple myeloma, remission status unspecified ([facility]) PROTEIN ELECTROPHORESIS, PATHOLOGIST INTERPRETATION Routine 03/22/2025 9:18 AM EDT Multiple myeloma not having achieved remission (CMS/HCC) TOTAL PROTEIN, SERUM Routine 03/22/2025 9:18 AM EDT Multiple myeloma not having achieved remission (CMS/HCC) PROTEIN ELECTROPHORESIS, SERUM Routine 03/22/2025 9:18 AM EDT Multiple myeloma not having achieved remission (CMS/HCC) KAPPA LAMBDA QUANTITATIVE FREE LIGHT CHAINS WITH [...] EDT Multiple myeloma, remission status unspecified (CMS/HCC) CBC WITH AUTO DIFFERENTIAL Routine 03/22/2025 9:18 AM EDT Multiple myeloma, remission status unspecified (CMS/HCC) CBC WITH AUTO DIFFERENTIAL Routine 03/08/2025 2:08 PM EDT Multiple myeloma, remission status unspecified (CMS/HCC) XR THORACIC SPINE 2 VIEWS Routine 02/23/2025 1:39 PM EDT Thoracic spine pain ANGEL SERUM, PATHOLOGIST INTERPRETATION Routine 02/22/2025 10:20 AM EDT Multiple myeloma not having achieved remission (CMS/HCC) PROTEIN ELECTROPHORESIS, PATHOLOGIST INTERPRETATION Routine 02/22/2025 10:20 AM EDT Multiple myeloma not having achieved remission (CMS/HCC) QIG, SERUM Routine 02/22/2025 10:20 AM EDT Multiple myeloma not having achieved remission (CMS/HCC) IMMUNOFIXATION ELECTROPHORESIS Routine 02/22/2025 10:20 AM EDT Multiple myeloma not having achieved remission (CMS/HCC) KAPPA LAMBDA QUANTITATIVE FREE LIGHT CHAINS WITH RATIO Routine 02/22/2025 10:20 AM EDT Multiple myeloma not having achieved remission (CMS/HCC) TOTAL PROTEIN, SERUM Routine 02/22/2025 10:20 AM EDT Multiple myeloma not having achieved remission (CMS/HCC) PROTEIN ELECTROPHORESIS, SERUM Routine 02/22/2025 10:20 AM EDT Multiple myeloma not having achieved remission (CMS/HCC) IMMUNOFIXATION ELECTROPHORESIS Routine 02/22/2025 10:20 AM EDT Multiple myeloma not having achieved remission (CMS/HCC) CBC WITH AUTO DIFFERENTIAL Routine 02/22/2025 10:20 AM EDT Multiple myeloma not having achieved remission (CMS/HCC) COMPREHENSIVE METABOLIC PANEL, PLASMA Routine 02/22/2025 10:20 AM EDT Multiple myeloma not having achieved remission (CMS/HCC) KAPPA LAMBDA QUANT FREE LIGHT CHAINS WITH RATIO ORDERABLE Routine 02/22/2025 10:20 AM EDT Multiple myeloma not having achieved remission (CMS/HCC) PROTEIN ELECTROPHORESIS, SERUM Routine 02/22/2025 10:20 AM EDT Multiple myeloma not having achieved remission (CMS/HCC) CBC WITH AUTO DIFFERENTIAL Routine 02/08/2025 1:43 PM EDT Multiple myeloma, remission status unspecified (CMS/HCC) from Last 3 Months Results * (ABNORMAL) CBC and differential (04/05/2025 2:20 PM EDT) Only the most recent of5 resultswithin the time period is included. WBC Count 4.72 3.70 - 10.30 10*3/uL LAB HEMATOLOGY METHOD 04/05/2025 4:07 PM EDT [facility] RBC Count 3.80(L) 4.60 - 6.10 10*6/uL LAB HEMATOLOGY METHOD 04/05/2025 4:07 PM EDT [facility] HGB 10.8(L) 13.7 - 17.5 g/dL LAB HEMATOLOGY METHOD 04/05/2025 4:07 PM EDT [facility] HCT 33.6(L) 40.0 - 51.0 % LAB HEMATOLOGY METHOD 04/05/2025 4:07 PM EDT [facility] Platelet Count 182 155 - 369 10*3/uL LAB HEMATOLOGY METHOD 04/05/2025 4:07 PM EDT [facility] MCV 88 79 - 98 fL LAB HEMATOLOGY METHOD 04/05/2025 4:07 PM EDT [facility] MCH 28.4 26.0 - 32.0 pg LAB HEMATOLOGY METHOD 04/05/2025 4:07 PM EDT [facility] MCHC 32.1 30.7 - 35.5 g/dL LAB HEMATOLOGY METHOD 04/05/2025 4:07 PM EDT [facility] RDW 18.9(H) 11.5 - 14.5 % LAB HEMATOLOGY METHOD 04/05/2025 4:07 PM EDT [facility] MPV 11.7 8.8 - 12.5 fL LAB HEMATOLOGY METHOD 04/05/2025 4:07 PM EDT [facility] nRBC 0.0 <=0.0 per 100 WBCs LAB HEMATOLOGY METHOD 04/05/2025 4:07 PM EDT [facility] Differential Type Automated LAB HEMATOLOGY METHOD 04/05/2025 4:07 PM EDT [facility] Neutrophils % 32 % LAB HEMATOLOGY METHOD 04/05/2025 4:07 PM EDT [facility] Lymphocytes % 31 % LAB HEMATOLOGY METHOD 04/05/2025 4:07 PM EDT [facility] Monocytes % 29 % LAB HEMATOLOGY METHOD 04/05/2025 4:07 PM EDT [facility] Eosinophils % 6 % LAB HEMATOLOGY METHOD 04/05/2025 4:07 PM EDT [facility] Basophils % 2 % LAB HEMATOLOGY METHOD 04/05/2025 4:07 PM EDT [facility] Immature Granulocytes % 0 % LAB HEMATOLOGY METHOD 04/05/2025 4:07 PM EDT [facility] Neutrophils Absolute 1.50(L) 1.60 - 6.10 10*3/uL LAB HEMATOLOGY METHOD 04/05/2025 4:07 PM EDT [facility] Lymphocytes Absolute 1.48 1.20 - 3.90 10*3/uL LAB HEMATOLOGY METHOD 04/05/2025 4:07 PM EDT [facility] Monocytes Absolute 1.37(H) 0.30 - 0.90 10*3/uL LAB HEMATOLOGY METHOD 04/05/2025 4:07 PM EDT [facility] Eosinophils Absolute 0.29 0.00 - 0.50 10*3/uL LAB HEMATOLOGY METHOD 04/05/2025 4:07 PM EDT [facility] Basophils Absolute 0.07 0.00 - 0.10 10*3/uL LAB HEMATOLOGY METHOD 04/05/2025 4:07 PM EDT [facility] Immature Granulocytes Absolute 0.01 0.00 - 0.06 10*3/uL LAB HEMATOLOGY METHOD 04/05/2025 4:07 PM EDT [facility] Blood Venous blood specimen / Unknown Venipuncture / Unknown 04/05/2025 2:20 PM EDT 04/05/2025 2:45 PM EDT Narrative [facility] - 04/05/2025 4:07 PM EDT Therapeutic decision making should be based on absolute values, rather than percentages. us Mohit Villarreal MD LAB BLOOD ORDERABLES Final Result [facility] [address] [place] [address] * (ABNORMAL) Fromberg Lambda Quant Free Light Chains w/Ratio (03/22/2025 9:18 AM EDT) Only the most recent of2 resultswithin the time period is included. [facility] Lambda Free Light Chain Ratio 42.24(H) 0.26 - 1.65 Ratio 03/24/2025 1:36 AM EDT [facility] Fromberg Quant Free Light Chains 431.70(H) 3.30 - 19.40 mg/L 03/24/2025 1:36 AM EDT [facility] Lambda Quant Free Light Chains 10.22 5.71 - 26.30 mg/L 03/24/2025 1:36 AM EDT [facility] Blood Venous blood specimen / Unknown Venipuncture / Unknown 03/22/2025 9:18 AM EDT 03/22/2025 9:36 AM EDT Narrative [facility] - 03/24/2025 1:36 AM EDT Undetected [...] with the testing laboratory. Test performed at [facility],Special Chemistry Laboratory. Mohit Villarreal MD LAB BLOOD ORDERABLES Final Result Performing Organization Address [facility] Co de Phone Number [facility] [address] [place] [address] * (ABNORMAL) Total Protein, Serum (03/22/2025 9:18 AM EDT) Only the most recent of2 resultswithin the time period is included. Total Protein 5.8(L) 6.2 - 7.7 g/dL 03/22/2025 10:19 AM EDT [facility] Blood Venous blood specimen / Unknown Venipuncture / Unknown 03/22/2025 9:18 AM EDT 03/22/2025 9:36 AM EDT Mohit Villarreal MD LAB BLOOD ORDERABLES Final Result Performing Organization Address City/[facility] Co de Phone Number [facility] [address] [place] [address] * (ABNORMAL) Protein Electrophoresis, Serum (03/22/2025 9:18 AM EDT) Only the most recent of2 resultswithin the time period is included. Albumin Electrophoresis, Serum 3.6 3.6 - 4.7 g/dL 03/23/2025 1:46 AM EDT [facility] Alpha 1 Globulin Electrophoresis, Serum 0.3 0.2 - 0.4 g/dL 03/23/2025 1:46 AM EDT [facility] Alpha 2 Globulin Electrophoresis, Serum 0.7 0.5 - 0.9 g/dL 03/23/2025 1:46 AM EDT [facility] Beta 1 Globulin Electrophoresis, Serum 0.4 0.3 - 0.5 g/dL 03/23/2025 1:46 AM EDT [facility] Beta 2 Globulin Electrophoresis, Serum 0.3 0.2 - 0.5 g/dL 03/23/2025 1:46 AM EDT [facility] Gamma Globulin Electrophoresis, Serum 0.4(L) 0.6 - 1.5 g/dL 03/23/2025 1:46 AM EDT [facility] Interpretation, Serum Protein Electrophoresis Pathology report to follow. 03/23/2025 1:46 AM EDT [facility] Blood Venous blood specimen / Unknown Venipuncture / Unknown 03/22/2025 9:18 AM EDT 03/22/2025 9:37 AM EDT Mohit Villarreal MD LAB BLOOD ORDERABLES Final Result [facility] [address] [place] [address] * Protein electrophoresis serum, pathologist interpretation (03/22/2025 9:18 AM EDT) Only the most recent of2 resultswithin the time period is included. 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 A resident was involved in the service. I attest I examined the relevant preparations for the specimens and confirmed the diagnosis or interpretation. 03/23/2025 12:18 PM EDT [facility] Pathologist Signature, SPEP Reviewed by: Carol Miguel MD 03/23/2025 12:18 PM EDT [facility] CP ASR DISCLAIMER Yes 03/23/2025 12:18 PM EDT [facility] Blood Venous blood specimen / Unknown Venipuncture / Unknown 03/22/2025 9:18 AM EDT 03/22/2025 9:37 AM EDT us Mohit Villarreal MD LAB PATHOLOGY ORDERABLES Fi nal Result Performing Organization Address [facility] [place] [address] * (ABNORMAL) IG Profile (03/22/2025 9:18 AM EDT) IGA 43(L) 75 - 400 mg/dL 03/22/2025 10:42 AM EDT [facility] IGG 508(L) 720 - 1,589 mg/dL 03/22/2025 10:42 AM EDT [facility] IGM 14(L) 35 - 225 mg/dL 03/22/2025 10:42 AM EDT [facility] Blood Venous blood specimen / Unknown Venipuncture / Unknown 03/22/2025 9:18 AM EDT 03/22/2025 9:36 AM EDT us Mohit Villarreal MD LAB BLOOD ORDERABLES Final Result Performing Organization Address [facility] [place] [address] * (ABNORMAL) Comprehensive metabolic panel (03/22/2025 9:18 AM EDT) Only the most recent of2 resultswithin the time period is included. Glucose, Plasma 112(H) 74 - 99 mg/dL 03/22/2025 10:25 AM EDT [facility] BUN, Plasma 14 8 - 23 mg/dL 03/22/2025 10:25 AM EDT [facility] Creatinine, Plasma 1.01 0.70 - 1.20 mg/dL 03/22/2025 10:25 AM EDT [facility] BUN/Creatinine Ratio 14 03/22/2025 10:25 AM EDT [facility] Sodium, Plasma 143 136 - 145 mmol/L 03/22/2025 10:25 AM EDT [facility] Potassium, Plasma 3.7 3.6 - 4.9 mmol/L 03/22/2025 10:25 AM EDT [facility] Chloride, Plasma 108(H) 97 - 107 mmol/L 03/22/2025 10:25 AM EDT [facility] CO2, Plasma 20(L) 22 - 29 mmol/L 03/22/2025 10:25 AM EDT [facility] Anion Gap 15 6 - 16 mmol/L 03/22/2025 10:25 AM EDT [facility] Total Calcium, Plasma 9.2 8.9 - 10.2 mg/dL 03/22/2025 10:25 AM EDT [facility] Total Protein 6.2(L) 6.3 - 7.9 g/dL 03/22/2025 10:25 AM EDT [facility] Albumin, Plasma 3.9 3.5 - 5.2 g/dL 03/22/2025 10:25 AM EDT [facility] AST, Plasma 25 10 - 50 U/L 03/22/2025 10:25 AM EDT [facility] ALT, Plasma 19 10 - 50 U/L 03/22/2025 10:25 AM EDT [facility] Alkaline Phosphatase, Plasma 90 40 - 115 U/L 03/22/2025 10:25 AM EDT [facility] Total Bilirubin, Plasma 0.7 0.2 - 1.1 mg/dL 03/22/2025 10:25 AM EDT [facility] eGFRcr 81.0 mL/min/1.7 3m*2 03/22/2025 10:25 AM EDT [facility] Comment:Reported eGFRcr in m L/min/1.73m2 is based the CKD-EPI 2020 equation that does not use a race coefficient. Blood Venous blood specimen / Unknown Venipuncture / Unknown 03/22/2025 9:18 AM EDT 03/22/2025 9:36 AM EDT us Mohit Villarreal MD LAB BLOOD ORDERABLES Final Result [facility] [address] [place] [address] * XR Thoracic Spine 2 Views (02/23/2025 1:39 PM EDT) Anatomical Region Laterality Modality Spine, T-spine Digital Radiogra phy Impressions 02/23/2025 2:16 PM EDT No evidence for hardware complication. No further interval height loss of the above compression deformities. CRITICAL RESULT: No. COMMUNICATION: Per this written report. Drafted by Loly Flores MD on 02/23/2025 2:14 PM Final report signed by Loly Flores MD on 02/23/2025 2:16 PM Narrative 02/23/2025 2:16 PM EDT CLINICAL INDICATION: pain TECHNIQUE: XR THORACIC SPINE 2 VIEWS COMPARISON: Radiographs from 01/08/2025 FINDINGS: Posterior fusion hardware spanning T5-T11. Similar compression deformities at T7, T9 and T11. Similar vertebroplasty at T7 and T11. No further interval height loss. No evidence of hardware complication. No evidence of an acute fracture. Procedure Note Loly Flores MD - 02/23/2025 CLINICAL INDICATION: pain TECHNIQUE: XR THORACIC SPINE 2 VIEWS COMPARISON: Radiographs from 01/08/2025 FINDINGS: Posterior fusion hardware spanning T5-T11. Similar compression deformitiesat T7, T9 and T11. Similar vertebroplasty at T7 and T11. No furtherinterval height loss. No evidence of hardware complication. No evidence ofan acute fracture. IMPRESSION: No evidence for hardware complication. No further interval height loss ofthe above compression deformities. CRITICAL RESULT: No. COMMUNICATION: Per this written report. Drafted by Loly Flores MD on 02/23/2025 2:14 PM Final report signed by Loly Flores MD on 02/23/2025 2:16 PM us Rajiv Garcias MD IMG XR PROCEDURES Final Resu lt * (ABNORMAL) QIG, Serum (02/22/2025 10:20 AM EDT) [facility] IGA 51(L) 75 - 400 mg/dL 02/22/2025 11:32 AM EDT [facility] IGG 544(L) 720 - 1,589 mg/dL 02/22/2025 11:32 AM EDT [facility] IGM 18(L) 35 - 225 mg/dL 02/22/2025 11:32 AM EDT [facility] Blood Venous blood specimen / Unknown Venipuncture / Unknown 02/22/2025 10:20 AM EDT 02/22/2025 10:42 AM EDT Bernice Mason [employer]OCHEMICAL ENGINE[employer] LAB BLOOD ORDERABLES Malena l Result [facility] [address] [place] [address] * Immunofixation Electrophoresis (02/22/2025 10:20 AM EDT) [facility] Immunofixation Interpretation Pathology report to follow. 02/26/2025 2:43 PM EDT [facility] Blood Venous blood specimen / Unknown Venipuncture / Unknown 02/22/2025 10:20 AM EDT 02/22/2025 10:42 AM EDT Bernice Mason [employer]HEM[employer]INE[employer] LAB BLOOD ORDERABLES Malena l Result [facility] [address] [place] [address] * ANGEL serum, pathologist interpretation (02/22/2025 10:20 AM EDT) [facility] Clinical Diagnosis, ANGEL Serum IgG Fromberg Multiple Myeloma 02/27/2025 11:09 AM EDT [facility] Interpretation , ANGEL Serum There are no qualitative abnormalities present in the IgG, IgA, IgM, kappa or lambda light chains as observed by immunofixation electrophoresis. Based upon immunochemical quantitation, the concentrations of IgG, IgA, and IgM are all depressed. A resident was involved in the service. I attest I examined the relevant preparations for the specimens and confirmed the diagnosis or interpretation. 02/27/2025 11:09 AM EDT [facility] Pathologist Signature, ANGEL Serum Reviewed by: Tim Becerra MD 02/27/2025 11:09 AM EDT [facility] CP ASR DISCLAIMER Yes 02/27/2025 11:09 AM EDT [facility] Blood Venous blood specimen / Unknown Venipuncture / Unknown 02/22/2025 10:20 AM EDT 02/22/2025 10:42 AM EDT us Bernice Mason BIOCHEMICAL ENGINEER LAB PATHOLOGY ORDERABLES Final Result [facility] [address] [place] [address] from Last 3 Months Additional Health Concerns Active Problems Noted Date Diagnosed Date Autogenerated Problem 10/19/2024 Insurance [facility] MEDICARE Advance Directives * Full Code (Latest Code Status on File) Date Activated Date Inactivated Comments 10/25/2024 7:42 PM 10/28/2024 4:32 PM Question Answer Comments I have reviewed the capacity from the link above and, if needed, have updated to appropriate status: Yes * Full Code Date Activated Date Inactivated Comments 09/13/2024 8:42 PM 09/16/2024 1:40 PM Question Answer Comments Patient has decision-making capacity? Yes Care Teams Sugar Mixer Relationship Specialty Start Date End Date Parrish Thurman MD [address] [facility] [address] [id number] PCP - General 10/19/24
--- OUTSIDE RECORDS SUMMARY | 2025-05-03 10:28 | XMS_ITS | Encounter Summary ---
Author Organization [facility] Address [address] 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 file Not on file Not on file documented as of this encounter Plan of Treatment Upcoming Encounters Date Type Department Care Team ([facility] Contact Info) Description 05/28/2025 1:00 PM EST Office Visit Medical Office Building [facility] [address], [address] [place] [address] Afshan Bryan MD [address] [facility] [address] [place] [address] documented as of this encounter [...] documented as of this encounter Care Teams Cook Roast Relationship Specialty Start Date End Date Parrish Thurman MD [facility] [address] [address] PCP - General 10/19/24 documented as of this encounter
--- OUTSIDE RECORDS SUMMARY | 2025-05-03 10:28 | XMS_ITS | Encounter Summary ---
Author Organization [employer] ([place], [place], [place], [place]) Address [address] [place] [address] Care Team Providers Care Traveling Buyer Name Role Phone Unavailable Primary Care Provider Unavailabl e Encounter Details Date Type Department Care Team (Late st Contact Info) Description 08/31/2018 Transcribed Document [facility] Family Medicine [facility] [place] [address] ProviderTree MD [address] [place] [id number] Social History Tobacco Use Types Packs/Day Years Used Date Smoking Tobacco: Never Assessed Sex and Gender Information Value Date Recorded Sex Assigned at Male 01/06/2022 8:27 PM CDT Legal Sex Male 8:27 PM CDT Gender Identity Male 01/06/2022 8:27 PM CDT Sexual Orientation Not on file documented as of this encounter Miscellaneous Notes * Cerner Conversion Note - Historical ProviderMD - 08/31/2018 4:06 PM JAVA TECH LEAD Discharge Summary, PT Entered On: 08/31/2018 16:07 EST Performed On: 08/31/2018 16:06 EST by CARLOS CASTILLO, PT Discharge Summary Reason for Discharge : Discharged from hospital Discharged to, Therapy : Home, with home health Discharge Summary Comment, PT : As of 08/31/18: Patient was ambulating 150' with Rwx and supervision. Patient is independent in his HEP and was supervision on stairs. All goals met. CARLOS CASTILLO, PT - 08/31/2018 16:06 EST Retail Loss Prevention Officer Goals Mobility/Bed Mobility LTG PT Grid Goal #1 Goal #2 Activity : Supine to sit Sit to stand Assist : Supervision or set-up Supervision or set-up Equipment : Bed, hospital Walker, front wheel Date to Meet : 09/07/2018 EST 09/07/2018 EST Goal Status : Goal met Goal met Date Met : 08/31/2018 EST 08/31/2018 EST CARLOS CASTILLO, PT - 08/31/2018 16:06 EST CARLOS CASTILLO, PT - 08/31/2018 16:06 EST Ambulation LTG Grid Goal #1 Device : Walker, front wheel Distance : 150 ft Assist : Supervision or set-up Date to Meet : 09/07/2018 EST Goal Status : Goal met Date Met : 08/31/2018 EST CARLOS CASTILLO, PT - 08/31/2018 16:06 EST Stairs LTG Grid Goal #1 Device : Walker, front wheel Number of Steps : 1 Handrail(s) : No handrails Assist : Supervision or set-up Date to Meet : 09/07/2018 EST Goal Status : Goal met Date Met : 08/31/2018 EST Comment : retro step CARLOS CASTILLO, PT - 08/31/2018 16:06 EST Electronically signed by Amira [facility] Conversion Chemistry Specialist Cerner at 10/27/2022 8:11 PM CDT documented in this encounter Plan of Treatment Not on file documented as of this encounter Visit Diagnoses Not on filedocumented in this encounter
--- OUTSIDE RECORDS SUMMARY | 2025-05-03 10:28 | XMS_ITS | Encounter Summary ---
Author Organization [employer] ([place], [place], [place], [place]) Address [address] [place] [address] Care Team Providers Care As400 Administrator Name Role Phone Unavailable Primary Care Provider Unavailabl e Encounter Details Date Type Department Care Team (Late st Contact Info) Description 08/30/2018 Transcribed Document [facility] Family Medicine [facility] [place] [address] ProviderTree MD [address] [place] [address] Social History Tobacco Use Types [...] - Tree ProviderMD - 08/30/2018 12:44 PM BEATER LEAD [facility] Main OR IntraOp Summary Primary Physician: BEATRIZ RAWLS MD-ORT Finalized Date/Time: 08/31/18 09:28:34 Pt. Name: PETRA VILLALBA RENETTA /Sex: 1955 Male Med Rec #: [id number] Physician: BEATRIZ RAWLS MD-ORT Financial #: [id number] Pt. Type: O Room/Bed: 648/1 Admit/Disch: 08/30/18 06:24:00 - Institution: [facility] IntraOp Case Attendance Entry 1 Entry 2 Entry 3 Case Attendee BEATRIZ RAWLS MD-ORT KESHEIMER, DAVID K, PA [place], [place], [employer] Pref Card Builder Role Performed Surgeon/Proceduralist, Physician physician assistant primary care Scrub, First First Time In 08/30/18 12:12:00 08/30/18 12:12:00 08/30/18 12:12:00 Time Out 08/30/18 14:50:00 08/30/18 14:50:00 08/30/18 14:50:00 Procedure Knee Total Joint Knee Total Joint Knee Total Joint Replacement(Right) Replacement(Right) Replacement(Right) Other Attendee Superficial Wound Closed By: Last Modified By: Tana Maynard, RN Tana Maynard, RN Tana Maynard, RN 08/30/18 14:50:09 08/30/18 14:50:09 08/30/18 14:50:09 Entry 4 Entry 5 Entry 6 Case Attendee Tana Maynard, RN Gabriela Fabian, LARRY ABDI, BAND HEAD SAW OPERATOR Role Performed Mophead Sewer, First Mophead Sewer, Second BAND HEAD SAW OPERATOR/Nurse Chief Yeoman Time In 08/30/18 12:12:00 08/30/18 12:12:00 08/30/18 12:12:00 Time Out 08/30/18 14:50:00 08/30/18 14:50:00 08/30/18 13:50:00 Procedure Knee Total Joint Knee Total Joint Knee Total Joint Replacement(Right) Replacement(Right) Replacement(Right) Other Attendee orientee Superficial Wound Closed By: Last Modified By: Tana Maynard, RN Tana Maynard, RN Tana Maynard, RN 08/30/18 14:50:09 08/30/18 11:46:42 08/30/18 14:02:03 Entry 7 Entry 8 Entry 9 Case Attendee ANAHI ALAS MD OTHER, ATTENDEE Grady Tate, BAND HEAD SAW OPERATOR Role Performed Anesthesiologist Vendor BAND HEAD SAW OPERATOR/Nurse Chief Yeoman Time In 08/30/18 12:12:00 08/30/18 12:12:00 08/30/18 13:50:00 Time Out 08/30/18 14:50:00 08/30/18 14:50:00 08/30/18 14:50:00 Procedure Knee Total Joint Knee Total Joint Knee Total Joint Replacement(Right) Replacement(Right) Replacement(Right) Other Attendee tamar tan Superficial Wound Closed By: Last Modified By: Tana Maynard, Tana Avila, Tana Avila RN 08/30/18 14:50:09 08/30/18 11:46:42 08/30/18 14:50:09 [facility] IntraOp Case Attendance Audit 08/30/18 14:50:09 Project Development Director: HAMILTGM Modifier: HAMILTGM 1 <+> Time Out 1 <*> Procedure Knee Total Joint Replacement(Right) 2 <+> Time Out 2 <*> Procedure Knee Total Joint Replacement(Right) 3 <+> Time Out 3 <*> Procedure Knee Total Joint Replacement(Right) 4 <+> Time Out 4 <*> Procedure Knee Total Joint Replacement(Right) 5 <+> Time Out 5 <*> Procedure Knee Total Joint Replacement(Right) 6 <*> Procedure Knee Total Joint Replacement(Right) 7 <+> Time Out 7 <*> Procedure Knee Total Joint Replacement(Right) 8 <+> Time Out 8 <*> Procedure Knee Total Joint Replacement(Right) 9 <+> Time Out 9 <*> Procedure Knee Total Joint Replacement(Right) 08/30/18 14:02:03 Project Development Director: HAMILTGM Modifier: HAMILTGM 1 <+> Time In 1 <*> Procedure Knee Total Joint Replacement(Right) 2 <+> Time In 2 <*> Procedure Knee Total Joint Replacement(Right) 3 <+> Time In 3 <*> Procedure Knee Total Joint Replacement(Right) 4 <+> Time In 4 <*> Procedure Knee Total Joint Replacement(Right) 5 <+> Time In 5 <*> Procedure Knee Total Joint Replacement(Right) 6 <+> Time In 6 <+> Time Out 6 <*> Procedure Knee Total Joint Replacement(Right) 7 <+> Time In 7 <*> Procedure Knee Total Joint Replacement(Right) 8 <+> Time In 8 <*> Procedure Knee Total Joint Replacement(Right) <+> 9 Case Attendee <+> 9 Role Performed <+> 9 Time In <+> 9 Procedure [facility] IntraOp Case Times Entry 1 Patient In Room Time 08/30/18 12:12:00 Out Room Time 08/30/18 14:50:00 Anesthesia Start Time 08/30/18 12:12:00 Stop Time 08/30/18 14:50:00 Anesthesia Ready 08/30/18 12:12:00 Surgery / Procedure Times Start Time 08/30/18 12:44:00 Stop Time 08/30/18 14:36:00 Last Modified By: Tana Maynard RN 08/30/18 12:45:24 [facility] IntraOp Case Times Audit 08/30/18 14:50:07 Project Development Director: HAMILTGM Modifier: HAMILTGM <+> 1 Out Room Time <+> 1 Stop Time 08/30/18 14:36:41 Project Development Director: HAMILTGM Modifier: HAMILTGM <+> 1 Stop Time 08/30/18 12:45:28 Project Development Director: HAMILTGM Modifier: HAMILTGM 1 <*> Start Time 08/30/18 12:45:00 [facility] IntraOp Cautery Entry 1 ESU Identification Cautery Type Monopolar ESU ID Number [id number] ID Type Hospital Number Cautery Settings Cut Setting 50 Coag Setting 50 ESU Grounding Pad Ground Pad Type Adult Grounding Pad Site Right Flank Grounding Pad Tana Maynard RN Applied By Grounding Pad Site Warm, dry and intact Skin Condition Before Cautery Grounding Pad Site Unchanged Skin Condition After Cautery Last Modified By: Tana Maynard RN 08/30/18 11:47:37 [facility] IntraOp Communication Entry 1 Entry 2 Entry 3 Communication To Family/Significant other Other Family/Significant other Comment start report close Communication By Gabriela Fabian, Gabriela Ty RN Hamilton, Gina M, RN Date and Time 08/30/18 12:38:00 08/30/18 14:18:00 08/30/18 14:40:00 Last Modified By: Tana Maynard RN Hamilton, Gina M, RN Hamilton, Gina M, RN 08/30/18 12:46:33 08/30/18 14:18:15 08/30/18 14:50:38 [facility] IntraOp Communication Audit 08/30/18 14:50:38 Project Development Director: HAMILTGM Modifier: HAMILTGM <+> 3 Communication By <+> 3 Date and Time <+> 3 Communication To <+> 3 Comment 08/30/18 14:18:15 Project Development Director: HAMILTGM Modifier: HAMILTGM <+> 2 Communication By <+> 2 Date and Time <+> 2 Communication To <+> 2 Comment [facility] IntraOp Counts Verification Entry 1 Entry 2 Procedure Knee Total Joint Knee Total Joint Replacement(Right) Replacement(Right) Count Info Count Type Sponge, Sharps, Sponge, Sharps, Miscellaneous Miscellaneous Counts Verification Baseline/pre-procedure Closure of cavity Sequence within a cavity Count Results Not Applicable Correct, surgeon notified If Incorrect or Waived complete the Counts Action Taken form: If Intentional Retention, complete the Intential Retention form: Counts Performed By Count Performed By [place]ka Oakley Summers, Jennifer, (Scrub) [employer] Pref Card Builder [place] Pref Card Builder Count Performed By Tana Maynard RN Hull, Tamara, RN (RN) Last Modified By: Tana Maynard RN Hamilton, Gina M, RN 08/30/18 11:47:51 08/30/18 14:11:48 [facility] IntraOp Counts Verification Audit 08/30/18 14:11:48 Project Development Director: HAMILTGM Modifier: HAMILTGM <+> 2 Procedure <+> 2 Count Type <+> 2 Counts Verification Sequence <+> 2 Count Results <+> 2 Count Performed By (Scrub) <+> 2 Count Performed By (RN) [facility] IntraOp Counts Final Entry 1 Procedure Knee Total Joint Replacement(Right) Final Count Info Count Type Sponge, Sharps, Miscellaneous Counts Verification Skin Closure/end of Sequence procedure Count Results Correct, surgeon notified Counts Performed By Count Performed By [place] Oakley, (Scrub) [employer] Pref Card Builder Count Performed By Tana Maynard RN (RN) Last Modified By: Tana Maynard RN 08/30/18 11:47:59 [facility] IntraOp Counts Final Audit 08/30/18 14:18:03 Project Development Director: HAMILTGM Modifier: HAMILTGM 1 <*> Procedure Knee Total Joint Replacement(Right) 1 <+> Count Performed By (Scrub) 1 <+> Count Performed By (RN) [facility] IntraOp Cultures and Spec Summary Entry 1 Cultrures and Specimens Specimen Ordered: Yes Specimens Types Pathology Specimen(s) Labeled Pathology and Sent to Last Modified By: Tana Maynard RN 08/30/18 11:48:16 General Comments: a. right knee bone fragments and tissue [facility] IntraOp Departure from OR Entry 1 Integumentary Assessment Integumentary WDL Assessment WDL Transfer/Handoff Transfer to PACU Phase I Handoff Method Phone call Post-op Transport Stretcher/Gurney Via Patient Transport BEATRIZ PEACE PA, Accompanied by LARRY ADAIR CRNA Last Modified By: Tana Maynard RN 08/30/18 11:48:34 [facility] IntraOp Dressing and Packing Entry 1 Type Dressing Location opsite Wound Dressing Item Skin Closure Glue, Joe Supplemental Limb immobilizer Applications Applied By BEATRIZ RAWLS MD-ORT Other Comments aquacel. Last Modified By: Tana Maynard RN 08/30/18 11:49:15 [facility] IntraOp Fire Risk Assessment Entry 1 Fire Info Surgical Site or 0- No Incision Above the Xyphoid Open O2 Source 0- No (Mask or Cannula) Available Ignition 1- Yes (ESU, Laser, Light Source) Fire Risk 1 Assessment Score Fire Score Fire Risk Yes Assessment Complete Fire Risk Tana Maynard RN Assessment Verified By Fire Risk 08/30/18 11:49:00 Assessment Verified Date/Time Fire Risk Standard Fire Yes Safety Precautions Followed Last Modified By: Tana Maynard RN 08/30/18 11:49:27 [facility] IntraOp General Case Aviation Project Manager 1 Case Information OR OR 04 [facility] Case Level 1 Room Verified Yes Wound Class I - Clean Specialty SN Orthopedic Anesthesia Type General ASA Class 2 Diagnosis Preop Diagnosis oa - right knee Postop Same As Preop No Postop Diagnosis see doctor's post op notes Last Modified By: Tana Maynard RN 08/30/18 12:46:14 [facility] IntraOp General Case Data Audit 08/30/18 12:46:14 Project Development Director: BEVERLYTGLuis Modifier: HAMILTGM <+> 1 ASA Class [facility] IntraOp Implant Log Entry 1 Entry 2 Entry 3 Type Implant (Synthetic) Implant (Synthetic) Implant (Synthetic) Implant Log Implant Type Bone Cement Hardware Hardware Tissue Implant Type Implant CEMENT BONE SURG SMPLX TIB CEMENTED STEM SZ F PATELLA RAY PERSONA Identification P [id number] Description Implant Quantity 2 1 1 Implant Site opsite opsite opsite Implant Identification Model Number Implant Identification Serial Number Implant [id number] Identification Lot Number Implant [place]:An Hernandez:Hernandez Us Hernandez:Hernandez Us Identification Orthopaedics Distribution Systems Superintendent Name: Implant [id number] Identification Catalog Number Implant Size Implant Has an Yes Yes Yes Expiration Date Implant Expiration 11/08/20 03/11/28 09/09/23 Date Wasted Radioactive Material Time Implanted Tissue Implant Continue for Tissue Implant Documentation Tissue Identification Number Graft Prep Per Distribution Systems Superintendent Instructions: Tissue Preparation Method: Reconstitution Solution: Reconstitution Solution Lot Number Reconstitution Solution Expiration Date: Thawing Solution Thawing Solution Lot Number Thawing Solution Expiration Date Preparation Materials, Other Preparation Materials, Other Lot Number Preparation Materials, Other Expiration Date Tissue Prepared/Processed By Distribution Systems Superintendent Paperwork Completed Implant Type Comment Last Modified By: Tana Maynard RN Hamilton, Gina M, Tana Avila RN 08/30/18 11:50:26 08/30/18 13:50:14 08/30/18 13:50:14 Entry 4 Entry 5 Type Implant (Synthetic) Implant (Synthetic) Implant Log Implant Type Hardware Hardware Tissue Implant Type Implant IMP KNEE FEM PSN CR CMT PSN ART SURF 10 Identification [id number] Description Implant Quantity 1 1 Implant Site opsite opsite Implant Identification Model Number Implant Identification Serial Number Implant [id number] Identification Lot Number Implant Hernandez:Hernandez Us Hernandez:Hernandez Us Identification Distribution Systems Superintendent Name: Implant [id number] Identification Catalog Number Implant Size Implant Has an Yes Yes Expiration Date Implant Expiration 10/10/27 04/10/23 Date Wasted Radioactive Material Time Implanted Tissue Implant Continue for Tissue Implant Documentation Tissue Identification Number Graft Prep Per Distribution Systems Superintendent Instructions: Tissue Preparation Method: Reconstitution Solution: Reconstitution Solution Lot Number Reconstitution Solution Expiration Date: Thawing Solution Thawing Solution Lot Number Thawing Solution Expiration Date Preparation Materials, Other Preparation Materials, Other Lot Number Preparation Materials, Other Expiration Date Tissue Prepared/Processed By Distribution Systems Superintendent Paperwork Completed Implant Type Comment Last Modified By: Tana Maynard RN Hamilton, Gina M, RN 08/30/18 13:50:14 08/30/18 14:04:53 [facility] IntraOp Implant Log Audit 08/30/18 14:04:53 Project Development Director: JOCELIN Modifier: HAMILTGM <+> 5 Implant Identification Description <+> 5 Implant Identification Lot Number <+> 5 Implant Identification Distribution Systems Superintendent Name: <+> 5 Implant Expiration Date <+> 5 Implant Site <+> 5 Implant Quantity <+> 5 Implant Identification Catalog Number <+> 5 Implant Type <+> 5 Implant Has an Expiration Date <+> 5 Type 08/30/18 13:50:14 Project Development Director: BEVERLYTGLuis Modifier: HAMILTGM <+> 2 Implant Identification Description <+> 2 Implant Identification Lot Number <+> 2 Implant Identification Distribution Systems Superintendent Name: <+> 2 Implant Expiration Date <+> 2 Implant Site <+> 2 Implant Quantity <+> 2 Implant Identification Catalog Number <+> 2 Implant Type <+> 2 Implant Has an Expiration Date <+> 2 Type <+> 3 Implant Identification Description <+> 3 Implant Identification Lot Number <+> 3 Implant Identification Distribution Systems Superintendent Name: <+> 3 Implant Expiration Date <+> 3 Implant Site <+> 3 Implant Quantity <+> 3 Implant Identification Catalog Number <+> 3 Implant Type <+> 3 Implant Has an Expiration Date <+> 3 Type <+> 4 Implant Identification Description <+> 4 Implant Identification Lot Number <+> 4 Implant Identification Distribution Systems Superintendent Name: <+> 4 Implant Expiration Date <+> 4 Implant Site <+> 4 Implant Quantity <+> 4 Implant Identification Catalog Number <+> 4 Implant Type <+> 4 Implant Has an Expiration Date <+> 4 Type 08/30/18 13:42:36 Project Development Director: JOCELIN Modifier: BEVERLYTGM 1 <*> Implant Identification Description CEMENT BONE SURG SMPLX P [id number] <*> Implant Quantity 1 [facility] IntraOp Intraoperative Assessment Entry 1 Handoff Method Online nursing summary Valid History / Yes Physical in Chart Preoperative Yes Checklist Reviewed/Evaluated Allergies Reviewed Yes Patient is Latex No Sensitive Isolation Not applicable Precautions Noted Level of WDL Consciousness (WDL = Alert, Oriented to Person, Place, and Time) Skin Assessment Yes Verified Present Upon IVs Arrival to OR Last Modified By: Tana Maynard RN 08/30/18 11:50:42 [facility] IntraOp Intraoperative Equipment Entry 1 Type Equipment Equipment Equipment Gomez Suction System Setting high Intraop Monitoring Electrocardiogram Five lead placement (ECG) Electrode Placement Blood Pressure Non-Invasive BP Device Source Blood Pressure Arm, right upper Location Pulse Oximeter Hand, left Probe Site Antiembolic Devices Antiembolic Devices Sequential compression device, knee high Antiembolic Device Left Location Antiembolic Device 40mmhg Setting Scopes Photo/Video Documentation Photo No Video No Last Modified By: Tana Maynard RN 08/30/18 11:51:13 [facility] IntraOp Medication Admin Entry 1 Medication/Irrigant NORMAL SALINE Route of irrigation Administration Dose Dose 2000 Unit of Measure ml Volume 50ml betadine added Administered By BEATRIZ RAWLS MD-ORT Procedure Irrigation Last Modified By: Tana Maynard RN 08/30/18 11:51:46 [facility] IntraOp Patient Positioning Entry 1 Procedure Knee Total Joint Replacement(Right) Body Position Supine Left Arm Position Secured on padded arm board Right Arm Position Secured on padded arm board Left Leg Position Uncrossed, parallel Right Leg Position Held on field Feet Uncrossed Yes Pressure Points Yes Checked Positioning Devices Head Rest, Arm Board, Pad, Arm, Safety Strap, Arm(s), Safety Strap, Thighs, Sand bags Device Position lateral post Positioned By BEATRIZ RAWLS MD-ORT, BEATRIZ PEACE, PA, Tana Maynard, TEZ, Gabriela Fabian, TEZ, LARRY ADAIR CRNA Position Verified Last Modified By: Tana Maynard RN 08/30/18 11:53:17 [facility] IntraOp Sign In Entry 1 Patient, Site, Yes Procedure Identified Surgical Consent Yes Confirmed Relevant Surgical Yes Documents Available Surgical Site Yes Marked by person performing procedure Anesthesia Machine Yes Check Completed Medication Checks Yes Completed Allergies Yes Airway Difficult Yes Airway/Aspiration Risk Difficult Yes Airway/Aspiration Intervention Equipment Available Blood Loss Risk Yes Blood Loss Yes Intervention Equipment Prepared and Ready Blood Identifiers Yes Verified Per Policy Hypothermia Risk Yes Warming Measures Yes Taken Last Modified By: Tana Maynard RN 08/30/18 12:45:43 [facility] IntraOp Sign Out Entry 1 RN Confirmation Surgical Yes Procedure(s) Identified Instrument, Sponge Yes and Sharps Counts Correct/Documented Equipment Problems N/A Documented Specimen Labeled Yes Correctly Urinary Catheter N/A Documented in IView Robb Patient Yes Recovery Concerns Reviewed with Anesthesia Provider, Surgeon and RN Robb Patient Yes Management Concerns Reviewed with Anesthesia Provider, Surgeon and RN Safety Checklist Yes Elements Complete? RN Sign Out Tana Maynard RN Signature RN Sign Out 08/30/18 14:50:00 Signature Date/Time Plan of Care Outcome - Fire Risk OUTCOME STATEMENT: Goal met Patient is free from injury related to surgical fire Plan of Care Outcome - Pt Positioning OUTCOME STATEMENT: Goal met Absence of signs and symptoms of positioning injury. Plan of Care Outcome - Skin Prep OUTCOME STATEMENT: Goal met Intraoperative care is consistent with measures to prevent infection Plan of Care Outcome - Xray/Images OUTCOME STATEMENT: N/A Absence of observable signs or symptoms of radiation injury Plan of Care Outcome - Counts OUTCOME STATEMENT: Goal met Absence of signs and symptoms of injury related to extraneous objects Last Modified By: Tana Maynard RN 08/30/18 11:53:41 [facility] IntraOp Sign Out Audit 08/30/18 14:50:17 Project Development Director: HAMILTGM Modifier: HAMILTGM <+> 1 RN Sign Out Signature Date/Time [facility] IntraOp Skin Prep Entry 1 Procedure Knee Total Joint Replacement(Right) Prescribed N/A Pre-Surgical Prep Completed Prep Area right thigh to toes circumferentially Intraop Prep Integumentary WDL Assessment WDL Prep Agents Chloraprep Prep by Tana Maynard RN Hair Removal Methods No hair removal performed Last Modified By: Tana Maynard RN 08/30/18 11:54:06 [facility] IntraOp Surgical Procedures Entry 1 Procedure Knee Total Joint Replacement Modifiers Right Additional RT TOTAL KNEE Procedure ARTHROPLASTY Description Primary Procedure Yes Primary Surgeon BEATRIZ RAWLS MD-ORT Start 08/30/18 12:44:00 Stop 08/30/18 14:36:00 Anesthesia Type General Specialty SN Orthopedic Wound Class I - Clean Last Modified By: Tana Maynard RN 08/30/18 11:54:12 [facility] IntraOp Surgical Procedures Audit 08/30/18 14:36:43 Project Development Director: HAMILTGM Modifier: HAMILTGM <+> 1 Stop 08/30/18 12:46:05 Project Development Director: HAMILTGM Modifier: HAMILTGM <+> 1 Start [facility] IntraOp Temp Regulation Devices Entry 1 Temp Regulation Temperature Warm blankets Regulation Device Temperature Upper body Regulation Site Temperature LARRY ADAIR, BRAYDEN Regulation Device Applied by Temperature bairhugger available Regulation Comment Last Modified By: Tana Maynard RN 08/30/18 11:54:34 [facility] IntraOP Time Out Entry 1 Procedure to be Knee Total Joint Performed Replacement(Right) Time Out Time Out Pause Time 08/30/18 12:38:00 All activity Yes suspended (unless life threatening emergency) Team Verbally Correct patient Confirms Information identity, Correct side and site are marked, Consent form is present and accurate, Agreement on the procedure to be done, Correct patient position, Relevant images/results properly labeled/appropriately displayed, Confirm antibiotics have been administered, Confirm the skin prep has dried, Confirm prosthesis/implant/devic e is present, Performed in location of procedure after prepped/draped Antibiotic Yes Prophylaxis Administered Or In Progress Within the Last 60 Minutes Beta Nuria N/A Administered Venous Yes Thromboembolism Prophylaxis Required Anticipated Critical Events Surgeon None expected Anesthesia Provider None expected Nursing Assures Sterility of instruments, Implant Availability Essential Imaging Yes Labeled and Displayed Last Modified By: Tana Maynard RN 08/30/18 12:45:54 [facility] IntraOP Time Out Audit 08/30/18 12:45:54 Project Development Director: JOCELIN Modifier: HAMILTGM 1 <+> Time Out Pause Time 1 <*> Procedure to be Performed Knee Total Joint Replacement(Right) [facility] IntraOp Tourniquet Entry 1 Type Pneumatic Serial/Unit Number [id number] Setting 350 mmHg Pheumatic Yes Tourniquet Checked Per Protocol Size 34 inches Placement Thigh, right upper Skin Protection - Yes Padded Under Cuff Applied By BEATRIZ RAWLS MD-ORT Removed By BEATRIZ PEACE PA Times Start Time 08/30/18 12:44:00 Stop Time 08/30/18 14:36:00 Total Time 111 calculated manually (Mins) Last Modified By: Tana Maynard RN 08/30/18 14:36:38 [facility] IntraOp Tourniquet Audit 08/30/18 14:36:38 Project Development Director: OLEGARIOILTGM Modifier: HAMILTGM 1 <*> Setting 300 mmHg 1 <+> Total Time calculated manually (Mins) 1 <+> Stop Time 08/30/18 12:46:04 Project Development Director: OLEGARIOILTGM Modifier: HAMILTGM <+> 1 Start Time Case Comments <None> Finalized By: RUCHI KONG Document Signatures Signed By: Tana Maynard RN 02/19/19 14:50 RUCHI KONG R. 08/31/18 09:28 Unfinalized History Date/Time Username Reason for Unfinalizing Freetext Reason for Unfinalizing 08/31/18 09:25 WATTSDR Correct Billing documented in this encounter Plan of Treatment Not on file documented as of this encounter Visit Diagnoses Not on filedocumented in this encounter
--- OUTSIDE RECORDS SUMMARY | 2025-05-03 10:29 | XMS_ITS | Encounter Summary ---
Author Organization [employer] ([place], [place], [place], [place]) Address [address] [place] [address] Care Team Providers Care Blocker And Polisher Name Role Phone Unavailable Primary Care Provider Unavailabl e Encounter Details Date Type Department Care Team (Late st Contact Info) Description 08/31/2018 Transcribed Document [facility] [place] Family Medicine [facility] [place] [address] ProviderTree MD [facility] [place], [place] [id number] Social History Tobacco Use Types Packs/Day Years Used Date Smoking Tobacco: Never Assessed Sex and Gender Information Value Date Recorded Sex Assigned at Male 01/06/2022 8:27 PM CDT Legal Sex Male 8:27 PM CDT Gender Identity Male 01/06/2022 8:27 PM CDT Sexual Orientation Not on file documented as of this encounter Miscellaneous Notes * Cerner Conversion Note - Tree ProviderMD - 08/31/2018 10:44 AM ANNEALER HELPER Discharge Instructions Entered On: 08/31/2018 10:46 EST Performed On: 08/31/2018 10:44 EST by Xochilt Ba RN DC Instructions HWD Medical Equipment For Home Use : [employer]--[phone] Home Health Services : [facility]--[phone] Christina Meyers RN - 08/31/2018 11:25 EST Diet After Discharge : Resume usual diet as tolerated Activity After Discharge : As tolerated, No strenuous activities, Full weight bearing Driving After Discharge : Do not drive, Other: No driving while taking pain medication Showering/Bathing : May shower, No tub bathing, soaking, or swimming Wound/Incision Care After Discharge : Keep operative site/wound site clean and dry, DO NOT Change dressing; may reinforce it as needed, Other: Leave dressing in place Wound/Incision Care At Discharge Comment cision Care At Discharge Comment : Notify provider of fever greater than 100.1, foul drainage or redness at incision site Xochilt Ba RN - 08/31/2018 10:44 EST Electronically signed by Amira, [facility] Conversion Cover Machine Operator Cerner at 10/27/2022 8:16 PM CDT documented in this encounter Plan of Treatment Not on file documented as of this encounter Visit Diagnoses Not on filedocumented in this encounter
--- OUTSIDE RECORDS SUMMARY | 2025-05-03 10:29 | XMS_ITS | Encounter Summary ---
Author Organization [employer] ([place], [place], [place], [place]) Address [address] [place] [address] Care Team Providers Care It Architecture Consultant Name Role Phone Unavailable Primary Care Provider Unavailabl e Encounter Details Date Type Department Care Team (Late st Contact Info) Description 08/31/2018 Transcribed Document [facility] [place] [facility] [place] [address] ProviderTree MD [address] [place] [address] Social History Tobacco Use Types [...] Conversion Note - Tree ProviderMD - 08/31/2018 12:00 PM FINAL INSPECTOR BALANCE WHEEL Pain Assessment Entered On: 08/31/2018 15:28 EST Performed On: 08/31/2018 12:37 EST by Xochilt Ba RN Intervention Information: acetaminophen Performed by Xochilt Ba RN on 08/31/2018 11:37:00 EST acetaminophen,1000mg Oral Pain Assessment Pain Assessment : Follow-up assessment Pain Scale Goal : 4 Pain Scale Used : 0-10 Scale Location : Knee, right Pain Improved by Intervention : Yes Xochilt Ba RN - 08/31/2018 15:28 EST Pain Scale Intensity : 4 Xochilt Ba RN - 08/31/2018 15:28 EST Image 4 - Images currently included in the form version of this document have not been included in the text rendition version of the form. documented in this encounter Plan of Treatment Not on file documented as of this encounter Visit Diagnoses Not on filedocumented in this encounter
--- OUTSIDE RECORDS SUMMARY | 2025-05-03 10:29 | XMS_ITS | Clinical Summary ---
Author Organization [facility] Address [address] [place] [id number] Phone [email or web address] Care Team Providers Care Mercury Cracking Tester Name Role Phone Handy Pennington Primary Care Provider [phone] Allergies No known active allergies Medications fluticasone (FLONASE) 50 MCG/ACT nasal spray 8 Active omeprazole (PriLOSEC) [address] capsule 8 Active zolpidem (AMBIEN) 10 MG tablet 8 Active ibuprofen (ADVIL,MOTRIN) 200 MG tabletIndicatio ns:as needed Take 800 mg by mouth every 6 (six) hours if needed for mild pain. Active dilTIAZem CD (CARTIA XT) 120 MG 24 hr capsule Cartia XT 120 mg capsule,extended release Active TRELEGY ELLIPTA 100-62.5-25 MCG/INH aerosol powder 8 Active finasteride (PROSCAR) 5 MG tablet finasteride 5 mg tablet Active tamsulosin (FLOMAX) 0.4 MG 24 hr capsule tamsulosin 0.4 mg capsule Active albuterol HFA (VENTOLIN HFA) 108 (90 Base) MCG/ACT inhaler Ventolin HFA 90 mcg/actuation aerosol inhaler Active levalbuterol (XOPENEX) 1.25 MG/3ML nebulizer solution USE 1 VIAL IN NEBULIZER EVERY 4 HOURS NEEDED 0 Active triamterene-hyd roCHLOROthiazid e (MAXZIDE-25) 37.5-25 MG per tablet triamterene 37.5 mg-hydrochloroth iazide 25 mg tablet 1/2 tablet daily in am. Active Active Problems Problem Noted Date Diagnosed Date Pure hypercholesterolemia 11/30/2016 Overview (12/08/2017): Contact dermatitis and other eczema due to other specified agent 12/29/2010 Overview (12/08/2017): Screening for hypertension 09/09/2010 Overview (12/08/2017): Essential hypertension 09/08/2010 Overview (12/08/2017): Routine general medical exam ination at a health care facility 10/23/2009 Overview (12/08/2017): Foreign body in other and combined sites on exte rnal eye 11/03/2007 Overview (12/08/2017): Health examination of defined subpopulation 09/10 Overview (12/08/2017): Other examination of ears and hearing 09/27/2007 Overview (12/08/2017): Contusion of forearm 06/10/2007 Overview (12/08/2017): Need for desensitization to allergens 05/31/2007 Overview (12/08/2017): Social History Tobacco Use Types Packs/Day Years Used Date Smoking Tobacco: Never Smokeless Tobacco: Current Snuff Intimate Partner Violence Answer Date R ecorded Insults You Not on file 10/22/2020 Threatens You Not on file 10/22/2020 Screams at You Not on file 10/22/2020 Physically Hurt Not on file 10/22/2020 Intimate Partner Violence Score Not on file 10/22/2020 Depression Answer Date Recorded PHQ Total Score Not on file 11/23/2020 Stress Answer Date Recorded Stress in your Life 0 08/23/2020 Dealing with Stress Not on file 08/23/2020 Sex and Gender Information Value Date Recorded Sex Assigned at Not on file Legal Sex Male 7:14 AM CDT Gender Identity Not on file Sexual Orientation Not on file Last Filed Vital Signs Vital Sign Reading Time Taken Comments Blood Pressure 125/83 12/20/2019 7:32 AM EDT Pulse 80 12/20/2019 7:32 AM EDT Temperature 37.1 C (98.8 F) 12/20/2019 7:32 AM EDT Respiratory Rate 18 12/20/2019 7:32 AM EDT Oxygen Saturation 96% 12/20/2019 7:32 AM EDT Inhaled Oxygen Concentration - - Weight 101 kg (222 lb 1.6 oz) 09/11/2019 10:36 A M EST Height 172.7 cm (5' 8 ) 09/11/2019 10:36 AM EST Body Mass Index 33.77 09/11/2019 10:36 AM EST Plan of Treatment Health Maintenance Due Date Last Done Comments CT Colonography 1955 Colonoscopy 1955 Colorectal Cancer Screening Combo 1955 DNA Cologuard 1955 Dental Cleaning/Exam 1955 FIT or FOBT Test 1955 Sigmoidoscopy 1955 Tetanus Diphtheria and Pertu ssis Immunization (1 - Tdap) 10/21/1975 Pneumococcal: 50+ Years (1 o f 1 - PCV) 2006 Zoster Immunization (1 of 2) 2006 Covid-19 Immunization (1 - 2 -25 season) 2025 Influenza Immunization (#1) 2025 HIB Immunization Aged Out No longer e ligible based on patient's age to complete this topic HPV Immunization Aged Out No longer e ligible based on patient's age to complete this topic Hepatitis A Immunization Aged Out No longer eligible based on patient's age to complete this topic Hepatitis B Immunization Aged Out No longer eligible based on patient's age to complete this topic Polio Immunization Aged Out No longer eligible based on patient's age to complete this topic Insurance XIN IN COPAY 5 Care Teams Mercury Cracking Tester Relationship Specialty Start Date End Date Handy Pennington [address] [place] [id number] PCP - General General Surgery 09/11/19
--- OUTSIDE RECORDS SUMMARY | 2025-05-03 10:29 | XMS_ITS | Encounter Summary ---
Author Organization [facility] Address [address] [place] [address] Care Team Providers Care Scullion Chief Name Role Phone Parrish Thurman MD Primary Care Provider + [phone] Reason for Visit * Reason Comments Med Refill Encounter Details Date Type Department Care Team ([facility] st Contact Info) Description 01/06/2025 Refill [facility] [address] [facility], [address] [place] [address] Hilario Burger MD [address] [place] [address] Vitamin D deficiency Social History Tobacco Use Types Packs/Day Years Used Date Smoking Tobacco: Former Passive Smoke Exposure: Never Smokeless Tobacco: Current Chew Comments:Quit smoking 1990s; [...] time in the past 12 m [facility], were you homeless or living [...] drink first t kiet in the morning (EYE-LEGAL ADMINISTRATIVE ASSISTANT) to steady your nerves or to get [...] Start Date Job End Date 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 file Not on file Not on file documented as of this encounter Plan of Treatment Upcoming Encounters Date Type Department Care Team (Late st Contact Info) Description 05/28/2025 1:00 PM EST Office Visit Medical Office Building Surgery Spine & Joint [address] [facility], [address] [place] [address] Afshan rByan MD [address] [place] [address] documented as of this encounter Goals Goal Patient Goal Type Associated Problems Recent Progress Patient-Stated? Author Autogenerat ed Goal Care Plan Autogenerated Problem No Rajiv Garcias MD documented as of this encounter Visit Diagnoses Diagnosis Vitamin D deficiency documented in this encounter Additional Health Concerns Active Problems Noted Date Diagnosed Date Autogenerated Problem 10/19/2024 Assessment Noted Time A fall risk assessment has been complete d for the patient 01/05/2025 1:36 PM EDT A Body Mass Index follow-up plan has been documented for the patient 01/05/2025 3:42 PM EDT documented as of this encounter Care Teams Scullion Chief Relationship Specialty Start Date End Date Parrish Thurman MD [address] [facility] [address] [place] [address] PCP - General 10/19/24 documented as of this encounter
--- OUTSIDE RECORDS SUMMARY | 2025-05-03 10:29 | XMS_ITS | Encounter Summary ---
Author Organization [employer] ([place], [place], [place], [place]) Address [address] [place] [address] Care Team Providers Care Stamping Press Operator Name Role Phone Unavailable Primary Care Provider Unavailabl e Encounter Details Date Type Department Care Team (Late st Contact Info) Description 08/31/2018 Transcribed Document [facility] [place] [facility] [place] [address] ProviderTree MD [facility] [place] [address] Social History Tobacco Use Types [...] Conversion Note - Tree ProviderMD - 08/31/2018 2:47 PM PLATE FILLER [address] , [place] [address] Patient Copy Patient Information: Name: PETRA VILLALBA Current Date: 08/31/2018 14:47:08 : 1955 Patient Address: [address] [place] [id number] Patient Attending Physician: BEATRIZ RAWLS MD-ORT Primary Care Provider: BILL VENTURA MD-KATHLEEN Primary Care Provider Discharge Diagnosis: Weight on Admission: 224 lb, 0 oz Comment: Follow-up Instructions: With: Address: When: BEATRIZ RAWLS [address], [place] [phone] Business (1) 11:00 AM Discharge Instructions: Diet [...] foul drainage or redness at incision site Medical Equipment for Home Use: [employer]--[phone] [facility][phone] Immunizations Documented During Stay: No Immunizations Found Heart Failure Discharge Instructions (if any): Stroke Related Discharge Instructions (if any): Warfarin Related Discharge Instructions (if any): Final Medication List: Printed Prescriptions acetaminophen-oxyCODONE (Percocet 5/325 oral tablet) 2 Tablet(s) Oral Every 6 Hours as needed for pain. 1-2 q 6 prn. Refills: 0. Patient Instructions: New medication. Prescription provided. enoxaparin (Lovenox 40 mg/0.4 mL injectable solution) 30 Milligram(s) SubCutaneous Interval Every 24 Hours. Refills: 0. Patient Instructions: New medication. Prescription provided. tamsulosin (Flomax 0.4 mg oral capsule) 1 Capsule(s) Oral Every Day. Refills: 0. Patient Instructions: New medication. Prescription provided. Other Medications cetirizine 10 Milligram(s) Oral Every Day. fluticasone nasal (fluticasone 50 mcg/inh nasal spray) 1 [place](s) Nostrils Both Every Day. fluticasone/umeclidinium/vilanterol (Trelegy Ellipta) [...] 10/23/2013 Document Revised: 07/19/2015 Document Reviewed: 06/13/2016 [employer] Interactive Patient Education ? 2017 [employer]. Wound Infection Introduction A wound infection happens [...] instructions at home: Medicines??? Take or apply rrbh-xha-rlxfeqt and prescription medicines only as told by [...] cannot use soap and water, use hand senior web applications developer. ? Change your bandage as told by [...] these instructions at home: Medicines ??? Take slsb-gic-ffylyah and prescription medicines only as told by [...] cannot use soap and water, use hand senior web applications developer. ? Change your bandage as told by [...] 09/19/2012 Document Revised: 03/01/2017 Document Reviewed: 06/03/2016 [employer] Interactive Patient Education ? 2017 [employer]. Medication Leaflets: tamsulosin (durant angeline FEROZ sin) [...] may report side effects to FDA at 2-665-UWU-9439. What other drugs will affect tamsulosin? Tell [...] may affect tamsulosin. This includes prescription and buot-sla-qhdhopf medicines, vitamins, and herbal products. Not all [...] to ensure that the information provided by [employer]. ('[employer]') is accurate, up-to-date, and complete, but no guarantee is made to that effect. Drug information contained herein may be time sensitive. [employer] information has been compiled for use by healthcare practitioners and consumers in the [place] and therefore [employer] does not warrant that uses outside of the [place] are appropriate, unless specifically indicated otherwise. [employer] drug information does not endorse drugs, diagnose patients or recommend therapy. [employer] drug information is an informational resource designed [...] effective or appropriate for any given patient. [facility] does not assume any responsibility for any aspect of healthcare administered with the aid of information [facility] provides. The information contained herein is not intended to cover all possible uses, directions, precautions, warnings, drug interactions, allergic reactions, or adverse effects. If you have questions about the drugs you are taking, check with your doctor, nurse or pharmacist. Copyright 2129-5123 [facility] [employer]. Version: 9.01. Revision Date: 06/06/2018. enoxaparin (ee [...] may report side effects to FDA at 4-519-CUN-1321. What other drugs will affect enoxaparin? Tell [...] drugs may affect enoxaparin, including prescription and shhc-jgx-vcfybkb medicines, vitamins, and herbal products. Not all [...] to ensure that the information provided by [employer]. ('[employer]') is accurate, up-to-date, and complete, but no guarantee is made to that effect. Drug information contained herein may be time sensitive. [employer] information has been compiled for use by healthcare practitioners and consumers in the [place] and therefore [employer] does not warrant that uses outside of the [place] are appropriate, unless specifically indicated otherwise. [employer] drug information does not endorse drugs, diagnose patients or recommend therapy. [employer] drug information is an informational resource designed [...] effective or appropriate for any given patient. [employer] does not assume any responsibility for any aspect of healthcare administered with the aid of information [employer] provides. The information contained herein is not intended to cover all possible uses, directions, precautions, warnings, drug interactions, allergic reactions, or adverse effects. If you have questions about the drugs you are taking, check with your doctor, nurse or pharmacist. Copyright 6539-3757 [facility]. Version: .. Revision Date: 10/14/2017. acetaminophen and oxycodone (a [...] may report side effects to FDA at 4-665-RXB-1974. What other drugs will affect acetaminophen and [...] affect acetaminophen and oxycodone, including prescription and hzkw-pmu-fqpxmjh medicines, vitamins, and herbal products. Not all [...] to ensure that the information provided by [employer]. ('[employer]') is accurate, up-to-date, and complete, but no guarantee is made to that effect. Drug information contained herein may be time sensitive. [employer] information has been compiled for use by healthcare practitioners and consumers in the [place] and therefore [employer] does not warrant that uses outside of the [place] are appropriate, unless specifically indicated otherwise. [employer] drug information does not endorse drugs, diagnose patients or recommend therapy. [employer] drug information is an informational resource designed [...] effective or appropriate for any given patient. [employer] does not assume any responsibility for any aspect of healthcare administered with the aid of information [employer] provides. The information contained herein is not intended to cover all possible uses, directions, precautions, warnings, drug interactions, allergic reactions, or adverse effects. If you have questions about the drugs you are taking, check with your doctor, nurse or pharmacist. Copyright 8608-0478 [employer]. Version: 18.02. Revision Date: 06/08/2018. CIGARETTE SMOKING: The facts are clear, cigarette smoking will shorten your life. Smoking can cause many illnesses along the way. As a healthcare provider, we recommend that you stop smoking. Assistance with quitting is available by contacting 3-147-GHSL-NOW. This is a free resource providing counseling, [...] Be sure to sign up for the [employer] patient portal, which gives you 01/02 access to your medical information ??? including these discharge instructions ??? using your computer, smartphone, or tablet. Just go to [employer] to get started. Questions? Call . [facility] would like to thank you for allowing us to assist you with your healthcare needs. DEEJAY Pacheco BILL RAY, (or access representative) have received the above patient education materials/instructions and have verbalized understanding: Patient Signature _ Date/Time Patient Certified Orthoptist Signature (if needed) Date/Time Clinician/Hospital Certified Orthoptist Signature (if needed) Date/Time documented in this encounter Plan of Treatment Not on file documented as of this encounter Visit Diagnoses Not on filedocumented in this encounter
--- OUTSIDE RECORDS SUMMARY | 2025-05-03 10:29 | XMS_ITS | Encounter Summary ---
Author Organization Healthcare Address [address] [place] [id number] Care Team Providers Care Preparator Name Role Phone Parrish Thurman MD Primary Care Provider + [phone] Reason for Visit * Reason Comments Med Refill Encounter Details Date Type Department Care Team ([facility] st Contact Info) Description 04/27/2025 Refill [facility] Hematology/BMT and Cellular Therapy Program [address] [address] Mohit Villarreal MD [address] [facility] [address] [place] [address] Multiple myeloma not having achieved remission (CMS/HCC) [...] any time in the past [address] 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 file Not on file Not on file documented as of this encounter Plan of Treatment Upcoming Encounters Date Type Department Care Team (Late st Contact Info) Description 05/28/2025 1:00 PM EST Office Visit Medical Office Building Surgery Spine & Joint [address], [address] [place] [address] Afshan Bryan MD [address] [place] [address] documented as of this encounter [...] documented as of this encounter Care Teams Preparator Relationship Specialty Start Date End Date Parrish Thurman MD [address] [facility] [address] [place] [address] PCP - General 10/19/24 documented as of this encounter
--- OUTSIDE RECORDS SUMMARY | 2025-05-03 10:29 | XMS_ITS | Encounter Summary ---
Author Organization [employer] ([place], [place], [place], [place]) Address [address] [place] [address] Care Team Providers Care Coat Padder Name Role Phone Unavailable Primary Care Provider Unavailabl e Encounter Details Date Type Department Care Team (Late st Contact Info) Description 08/31/2018 Transcribed Document [facility] [place] Family Medicine [facility] [address] ProviderTree MD [address] [place] [id number] Social History Tobacco Use Types Packs/Day Years Used Date Smoking Tobacco: Never Assessed Sex and Gender Information Value Date Recorded Sex Assigned at Male 01/06/2022 8:27 PM CDT Legal Sex Male 8:27 PM CDT Gender Identity Male 01/06/2022 8:27 PM CDT Sexual Orientation Not on file documented as of this encounter Miscellaneous Notes * Cerner Conversion Note - Tree ProviderMD - 08/31/2018 1:39 PM AIRCRAFT TIME CLERK Care Management Assessment/Plan Entered On: 08/31/2018 13:46 EST Performed On: 08/31/2018 13:39 EST by Christina Meyers RN Care Management Note Care Management Note : Pt had f/c placed for urinary retention and needs f/u appt with Uro in 5 days. Called [facility] ([phone]) to schedule appt, but MD needs referral and clinicals faxed and then they will call pt with appt. Faxed everything needed and informed pt and spouse. Pt will dc home on Lovenox for DVT prophylaxis. Faxed script for Lovenox to [facility] in [place], they have enough in stock and pt's co-pay is $10. Pt and spouse agree to pay this. Care Management Note Report : Christina Meyers RN - 08/31/18 11:28:36 [id number] Documentation Status Complete : Yes Christina Meyers RN - 08/31/2018 13:39 EST Electronically signed by [facility] Conversion Lingo Cleaner Cerner at 10/27/2022 8:13 PM CDT documented in this encounter Plan of Treatment Not on file documented as of this encounter Visit Diagnoses Not on filedocumented in this encounter
--- OUTSIDE RECORDS SUMMARY | 2025-05-03 10:29 | XMS_ITS | Encounter Summary ---
Author Organization [employer] ([place], [place], [place], [place]) Address [address] [place] [address] Care Team Providers Care Swing Driver Name Role Phone Unavailable Primary Care Provider Unavailabl e Encounter Details Date Type Department Care Team (Late st Contact Info) Description 08/31/2018 Transcribed Document [facility] [place] [facility] [place] [address] ProviderTree MD [address] [place] [address] Social History Tobacco Use Types Packs/Day Years Used Date Smoking Tobacco: Never Assessed Sex and Gender Information Value Date Recorded Sex Assigned at Male 01/06/2022 8:27 PM CDT Legal Sex Male 8:27 PM CDT Gender Identity Male 01/06/2022 8:27 PM CDT Sexual Orientation Not on file documented as of this encounter Miscellaneous Notes * Cerner Conversion Note - Tree ProviderMD - 08/31/2018 2:59 PM CLIENT CONSULTANT Education-Surgery Entered On: 08/31/2018 14:59 EST Performed On: 08/31/2018 14:59 EST by JUAN FRAZIER Rn-Ortho Nurse Navigator Teaching/Learning Assessment Individuals Taught : Patient, Spouse Readiness to Learn : Cooperative Readiness to Learn : Demonstration, Explanation, Video/Educational TV Education Comment : Incentive Spirometry taught at [facility] JUAN FRAZIER Rn-Ortho Nurse Elizaator - 08/31/2018 14:59 EST Education Topics, Periop Preadmission Perioperative Education Grid Incentive Spirometry : Verbalizes understanding JUAN FRAZIER Rn-Ortho Nurse Elizaator - 08/31/2018 14:59 EST documented in this encounter Plan of Treatment Not on file documented as of this encounter Visit Diagnoses Not on filedocumented in this encounter
--- OUTSIDE RECORDS SUMMARY | 2025-05-03 10:29 | XMS_ITS | Encounter Summary ---
Author Organization Healthcare Address [address] [place] [address] Care Team Providers Care Cabinet And Trim Installer Name Role Phone Parrish Thurman MD Primary Care Provider + [phone] Encounter Details Date Type Department Care Team ([facility] st Contact Info) Description 04/18/2025 Telephone [facility] Hematology/BMT and Cellular Therapy Program [address] [address] Mohit Villarreal MD [address] [facility] [address] [place] [address] Social History Tobacco Use Types Packs/Day Years [...] any time in the past 12 m [facility], were you homeless or living in a intermediate (including now)? No 09/14/2024 CAGE ASSESSMENT Answer [...] drink first t kiet in the morning (EYE-PLANNER INTERNSHIP) to steady your nerves or to get [...] Telephone Encounter - Natalie Andrews RN - 04/18/2025 4:13 PM EDT RN returned call and spoke with patient. [facility] will need to [facility] his appointments here. Patient did not want to schedule follow up with Dr. Villarreal at this time but will reach out if he needs follow up visit. * Telephone Encounter - Dawn Hernandez - 04/18/2025 2:36 PM EDT Patient called to cancel infusion Callback number: [phone] documented in this encounter Plan of Treatment Upcoming Encounters Date Type Department Care Team (Late st Contact Info) Description 05/28/2025 1:00 PM EST Office Visit Medical Office Building [facility] [address] [facility], [address] [place] [address] Afshan Bryan MD [address] [place] [address] documented as of this encounter [...] documented as of this encounter Care Teams Cabinet And Trim Installer Relationship Specialty Start Date End Date Parrish Thurman MD [address] [id number] PCP - General 10/19/24 documented as of this encounter
--- OUTSIDE RECORDS SUMMARY | 2025-05-03 10:29 | XMS_ITS | Encounter Summary ---
Author Organization Healthcare Address [address] [place] [address] Care Team Providers Care Field Representative/Health Education Name Role Phone Parrish Thurman MD Primary Care Provider + [phone] Encounter Details Date Type Department Care Team (Late st Contact Info) Description 04/26/2025 Telephone [facility] [address] [place] [address] Victorina Hurt, PharmD [facility] [place] [phone] Social History Tobacco Use Types Packs/Day Years [...] were you homeless or living in a long term (including now)? 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 file Not on file Not on file documented as of this encounter Plan of Treatment Upcoming Encounters Date Type Department Care Team (Late st Contact Info) Description 05/28/2025 1:00 PM EST Office Visit Medical Office Building Surgery [facility] [address] [facility], [address] [place] [address] Afshan Bryan MD [address] [place] [address] documented as of this encounter [...] documented as of this encounter Care Teams Field Representative/Health Education Relationship Specialty Start Date End Date Parrish Thurman MD [address] [facility] [address] [place] [address] PCP - General 10/19/24 documented as of this encounter
--- OUTSIDE RECORDS SUMMARY | 2025-05-03 10:29 | XMS_ITS | Clinical Summary ---
Author Organization [facility] Address [address] [place] [address] Phone Care Team Providers Care Integrity Assessor Name Role Phone Status, Fax Unavailable Conditions or Problems Problem Name Problem Code Onset Date Status Entry Date Provider Comment Standard Description Annotate Pseudomonas infection 09385553 (SNOMED CT) 10/22 Active 10/22 Grady Green MD Bacterial infection caused by Pseudomonas Chronic kidney disease stage 2 356379204 (SNOMED CT) 10/22 Active 10/22 Ade Green Chronic kidney disease stage 2 Elevated liver enzymes 389794144 (SNOMED CT) 10/22 Active 10/22 Ade Green Liver enzymes outside reference range Knee, right, initial encounter, infection/inf lammatory reaction due to internal joint prosthesis T84.53xA (ICD-10-CM) 10/18 Active 10/18 Breanna W Infection and inflammatory reaction due to internal right knee prosthesis, initial encounter Cellulitis of RLE 935830094 (SNOMED CT) 10/18 Active 10/18 Caroline Diony Cellulitis of lower limb Knee, left, initial encounter, infection/inf lammatory reaction due to internal joint prosthesis T84.54xA (ICD-10-CM) 10/18 Inactive 10/18 Caroline Diony Infection and inflammatory reaction due to internal left knee prosthesis, initial encounter Medications Medication Instructions Start Date Stop Date Generic Name ND Provider ROSUVASTATIN CALCIUM 20 MG TABS 8 ROSUVASTATIN CALCIUM 44176064575 José Miguel Garner LEVALBUTEROL HCL 1.25 MG/3ML NEBU 6 LEVALBUTEROL HCL 20812134475 José Miguel D ZOLPIDEM TARTRATE 10 MG TABS TAKE 1 TABLET BY MOUTH ONCE DAILY AT BEDTIME 1 ZOLPIDEM TARTRATE 24936203341 José Miguel D OMEPRAZOLE 20 MG CPDR TAKE 1 CAPSULE BY MOUTH ONCE DAILY 4 OMEPRAZOLE 13400130145 José Miguel D FLUTICASONE PROPIONATE 50 MCG/ACT SUSP USE 1 SPRAY(S) IN EACH NOSTRIL ONCE DAILY 9 FLUTICASONE PROPIONATE [id number] José Miguel D TRIAMTERENE-HCTZ 37.5-25 MG TABS TAKE 1 2 (ONE HALF) TABLET BY MOUTH ONCE DAILY 9 TRIAMTERENE-HCT Z [id number] José Miguel D TRELEGY ELLIPTA 100-62.5-25 MCG/ACT AEPB INHALE 1 PUFF ONCE DAILY 6 FLUTICASONE-UME CLIDIN-VILANT 69893620883 José Miguel D ALBUTEROL SULFATE HFA 108 (90 Base) MCG/ACT AERS INHALE 1 PUFF BY MOUTH 4 TIMES DAILY NEEDED FOR WHEEZING OR SHORTNESS OF BREATH 3 ALBUTEROL SULFATE 66530127191 José Miguel D Medications Administered No information available. Allergies, Adverse Reactions, Alerts Observed no known allergies at Results Date Name Value Unit Range Flag Description Office Visit: Rm. 2New Pt MEDS REVIEW Done Documenta tion of current medications (procedure) ORALTOBACUSE Current Tobacco smoking status CIGARET SMKG yes Tobacco smoking status SMOK STATUS Former smoker Tobacco smoking status Lab Report: CBC (NO DIFF) PLATELETS 237 10*3/mm3 140-450 Platelets [#/volume] in Blood by Automated count ZZ-GE-unk 10.4 fL 6.0-12.0 GE use onl y - for [employer] import when terms are not otherwise specified RDW_ 12.8 12.3-15.4 RDW, no uni ts MCHC 33.3 G/DL 31.5-35.7 MCHC [Mass/ volume] by Automated count MCH 31.9 pg 26.6-33.0 MCH [Entiti c mass] by Automated count MCV 95.7 fL 79.0-97.0 MCV [Entiti c volume] by Automated count HCT 51.0 % 37.5-51.0 Hematocrit [Volume Fraction] of Blood by Automated count HGB 17.0 g/dL 13.0-17.7 Hemoglobin [Mass/volume] in Blood RBC 5.33 10*6/mm3 4.14-5.80 Erythrocyt es [#/volume] in Blood by Automated count WBC 7.70 10*3/mm3 3.40-10.80 Leukocyte s [#/volume] in Blood by Automated count Lab Report: SEDIMENTATION RA TE ESR 3 mm/h 0-20 Erythrocyte sedimentation rate by Westergren method Lab Report: CK CPK 121 U/L 20-200 Creatine homa se [Enzymatic activity/volume] in Serum or Plasma Lab Report: COMPREHENSIVE ME TABOLIC PANEL ANIONGAP 12.0 mmol/L 5.0-15.0 anion gap, serum BUN/CREAT 14.6 7.0-25.0 Urea nitrogen/Creatinine [Mass Ratio] in Serum or Plasma GFRC 56 mL/min/1 .73m2 >60 L Glomerular Filtration Rate Calculation BILI TOTAL 0.6 mg/dL 0.0-1.2 Bilirubin. total [Mass/volume] in Serum or Plasma ALK PHOS 79 U/L 39-117 Alkaline chi sphatase [Enzymatic activity/volume] in Blood SGOT (AST) 76 U/L 1-40 H Aspartate aminotransferase [Enzymatic activity/volume] in Serum or Plasma SGPT (ALT) 82 U/L 1-41 H Alanine aminotransferase [Enzymatic activity/volume] in Serum or Plasma ALBUMIN 4.90 g/dL 3.50-5.20 Albumin [Mass/volume] in Serum or Plasma PROTEIN, TOT 7.7 g/dL 6.0-8.5 Protein [Mass/volume] in Serum or Plasma CALCIUM 9.7 mg/dL 8.6-10.5 Calcium [Moles/volume] in Serum or Plasma CO2 28.0 mmol/L 22.0-29.0 Carbon diox cassius, total [Moles/volume] in Venous blood CHLORIDE 99 mmol/L 98-107 Chloride [Moles/volume] in Serum or Plasma POTASSIUM 4.1 mmol/L 3.5-5.2 Potassium [Moles/volume] in Serum or Plasma SODIUM 139 mmol/L 136-145 Sodium [Moles/volume] in Serum or Plasma CREATININE 1.30 mg/dL 0.76-1.27 H Creatini ne [Mass/volume] in Serum or Plasma BUN 19 mg/dL 8-23 Urea nitrogen [Mass/volume] in Serum or Plasma GLUCOSE SER 98 mg/dL 65-99 Glucose [Mass/volume] in Serum or Plasma Lab Report: C-REACTIVE PROTE IN CRP 0.31 mg/dL 0.00-0.50 C reactive protein [Mass/volume] in Serum or Plasma Lab Report: Hepatitis Panel (4) HB CORE IGM N Negative Hepatiti s B virus core IgG+IgM Ab [Presence] in Serum or Plasma by Immunoassay HBSAGC N Negative Hepatitis B virus surface Ag [Presence] in Serum or Plasma by Confirmatory method ANTI-HAV IGM N Negative Hepatit is A virus IgM Ab [Units/volume] in Serum by Radioimmunoassay (ARTUR) Plan of Care Type Date Detail Pending order STAT Labs Pending order STAT Labs Pending order Hepatitis Panel Acute Procedures Code Procedure Name Date Entry Date CPT-sl STAT Labs CPT-sl STAT Labs CPT-97450 Hepatitis Panel Acute 10/22 Vital Signs Date Name Value Unit Description BMI (Body Mass Index) 37.10 kg/m2 Bod y Mass Index (Ratio) Body Temperature 98.4 [degF] temperat ure E&M BP Diastolic 86 mm[Hg] blood pressu re, diastolic BP Systolic 128 mm[Hg] blood pressur e, systolic Heart Rate 92 /min pulse rate Height 68 [in_us] height E&M Respiratory Rate 16 /min respirat ory rate E&M Weight Measured 244 [lb_av] weight E& M Weight Measured 244 [lb_av] weight E& M Immunizations No information available. Advance Directives Directive Description Start Date POWER OF [employer]N CUTTER LIVING WILL ON FILE
--- OUTSIDE RECORDS SUMMARY | 2025-05-03 10:29 | XMS_ITS | Encounter Summary ---
Author Organization [employer] ([place], [place], [place], [place]) Address [address] [place] [address] Care Team Providers Care Fuselage Framer Name Role Phone Unavailable Primary Care Provider Unavailabl e Encounter Details Date Type Department Care Team (Late st Contact Info) Description 08/31/2018 Transcribed Document [facility] [place] [facility] [place] [address] Tree Alonso MD [address], [place] [id number] Social History Tobacco Use Types Packs/Day Years Used Date Smoking Tobacco: Never Assessed Sex and Gender Information Value Date Recorded Sex Assigned at Male 01/06/2022 8:27 PM CDT Legal Sex Male 8:27 PM CDT Gender Identity Male 01/06/2022 8:27 PM CDT Sexual Orientation Not on file documented as of this encounter Miscellaneous Notes * Cerner Conversion Note - Tree Alonso MD - 08/31/2018 2:47 PM PLUMBING DRAFTER Patient Education Materials Follows:Disease Wound Infection Introduction A wound infection happens [...] instructions at home: Medicines??? Take or apply eyjy-elo-rsqegzg and prescription medicines only as told by [...] cannot use soap and water, use hand fuel conversion technician. ? Change your bandage as told [...] 12/03/2016 Document Reviewed: 12/16/2015 ? 2017 [employer] Total Knee Replacement, Care After These instructions give you information about caring for yourself after your procedure. Your doctor may also give you more specific instructions. Call your doctor if you have any problems or questions after your procedure. Follow these instructions at home: Medicines ??? Take tpog-vdv-ucobarn and prescription medicines only as told by [...] cannot use soap and water, use hand fuel conversion technician. ? Change your bandage as told [...] 09/19/2012 Document Revised: 03/01/2017 Document Reviewed: 06/03/2016 [employer] Patient Education ? 2017 [employer] Urology Plascencia Catheter Care, Adult A Plascencia catheter [...] 10/23/2013 Document Revised: 07/19/2015 Document Reviewed: 06/13/2016 [employer] Patient Education ? 2017 [employer] Electronically signed by Adalid Collier Conversion Jacquard Loom Carpet Weaver Katelyn at 10/27/2022 8:07 PM CDT documented in this encounter Plan of Treatment Not on file documented as of this encounter Visit Diagnoses Not on filedocumented in this encounter
--- OUTSIDE RECORDS SUMMARY | 2025-05-03 10:29 | XMS_ITS | Encounter Summary ---
Author Organization [employer] ([place], [place], [place], [place]) Address [address] [place] [address] Care Team Providers Care Mrb Engineer Name Role Phone Unavailable Primary Care Provider Unavailabl e Encounter Details Date Type Department Care Team (Late st Contact Info) Description 08/31/2018 Transcribed Document [facility] [place] [facility] [place] [address] ProviderTree MD [facility] [place] [address] Social History Tobacco Use Types [...] Conversion Note - Tree ProviderMD - 08/31/2018 7:23 AM SENIOR RADIATION THERAPIST [address] [place] [address] Patient Copy Patient Information: Name: PETRA VILLALBA Current Date: 08/31/2018 07:23:32 : 1955 Patient Address: [address] [place] [address] Patient Attending Physician: BEATRIZ RAWLS MD-ORT Primary Care Provider: BILL VENTURA MD-KATHLEEN Primary Care Provider Discharge Diagnosis: Weight on Admission: 224 lb, 0 oz Comment: Follow-up Instructions: With: Address: When: BEATRIZ RAWLS [address] [place], [place] [address] [facility] [place] [address] Business (1) 11:00 AM Discharge Instructions: Immunizations Documented During Stay: No Immunizations Found [...] SubCutaneous Interval Every 24 Hours. Refills: 0. Other Medications cetirizine 10 Milligram(s) Oral Every Day. fluticasone nasal (fluticasone 50 mcg/inh nasal spray) 1 Newberry(s) Nostrils Both Every Day. fluticasone/umeclidinium/vilanterol (Trelegy Ellipta) [...] cramping, rapid heartbeat, difficulty sleeping, and nervousness. CIGARETTE SMOKING: The facts are clear, cigarette smoking will shorten your life. Smoking can cause many illnesses along the way. As a healthcare provider, we recommend that you stop smoking. Assistance with quitting is available by contacting 6-822-AXZY-NOW. This is a free resource providing counseling, [...] Be sure to sign up for the [employer] patient portal, which gives you 01/02 access to your medical information ??? including these discharge instructions ??? using your computer, smartphone, or tablet. Just go to [employer] to get started. Questions? Call . [facility] would like to thank you for allowing us to assist you with your healthcare needs. DEEJAY Pacheco BILL RAY, (or customer care representative) have received the above patient education materials/instructions and have verbalized understanding: Patient Signature _ Date/Time Patient Electrotype Caster Signature (if needed) Date/Time Clinician/Hospital Electrotype Caster Signature (if needed) Date/Time documented in this encounter Plan of Treatment Not on file documented as of this encounter Visit Diagnoses Not on filedocumented in this encounter
--- OUTSIDE RECORDS SUMMARY | 2025-05-03 10:29 | XMS_ITS | Encounter Summary ---
Author Organization [employer] ([place], [place], [place], [place]) Address [address] [place] [address] Care Team Providers Care Cable Swager Name Role Phone Unavailable Primary Care Provider Unavailabl e Encounter Details Date Type Department Care Team (Late st Contact Info) Description 08/31/2018 Transcribed Document [facility] [place] Medicine [facility] [place] [address] ProviderTree MD [address], [place] [id number] Social History Tobacco Use Types Packs/Day Years [...] - Tree ProviderMD - 08/31/2018 10:44 AM TERRAZZO POLISHER HELPER Nursing Discharge Summary Entered On: 08/31/2018 10:44 EST Performed On: 08/31/2018 10:44 EST by Xochilt Ba RN Discharge Documentation Patient Disposition, General : Discharge Discharge To : Home with ambulatory/outpatient follow-up Mode Of Departure, General Discharge : Private vehicle Accompanied By, Discharge : Spouse IV Discontinued : Yes Personal Belongings With Patient : Yes Prescriptions Given to Patient : Yes Discharge Instructions Reviewed With, Opportunity For Questions Given : Patient, Spouse, Other: 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
--- OUTSIDE RECORDS SUMMARY | 2025-05-03 10:29 | XMS_ITS | Encounter Summary ---
Author Organization [employer] ([place], [place], [place], [place]) Address [address] [place] [address] Care Team Providers Care Hot Dog Vendor Name Role Phone Unavailable Primary Care Provider Unavailabl e Encounter Details Date Type Department Care Team (Late st Contact Info) Description 08/31/2018 Transcribed Document [facility] [place] [facility] [place] [address] ProviderTree MD [facility] [place] [address] Social History Tobacco Use Types Packs/Day Years Used Date Smoking Tobacco: Never Assessed Sex and Gender Information Value Date Recorded Sex Assigned at Male 01/06/2022 8:27 PM CDT Legal Sex Male 8:27 PM CDT Gender Identity Male 01/06/2022 8:27 PM CDT Sexual Orientation Not on file documented as of this encounter Miscellaneous Notes * Cerner Conversion Note - Tree Alonso MD - 08/31/2018 3:00 PM SUPERVISOR FERTILIZER PROCESSING Orthopedic Nurse Navigator Entered On: 08/31/2018 15:03 EST Performed On: 08/31/2018 15:00 EST by JUAN FRAZIER Rn-Ortho Nurse Navigator Orthopedic Nurse Navigator Assessment Attended Joint Academy : Yes Joint AcademyType : In person Joint Academy Date : 08/19/2018 EST Joint Store Grocery Merchandiser Attended Academy : Yes Joint Store Grocery Merchandiser Name : [place] Type of Surgery : Total Knee Replacement, Right Does Patient Have a Walker? : No Walker/toilette Ordered for After Discharge : Yes Anticipated Discharge Plan : Home Health PT Anticipated Discharge Plan Comment : Patient plan set at Joint Academy to d/c home with the help of his and [facility]. Patient Completed RAPT Score : 11 Joint Navigator Assessment Note : Long-term functional goal is to walk without pain. JUAN FRAZIER Rn-Ortho Nurse Navigator - 08/31/2018 15:00 EST Teaching/Learning Assessment Individuals Taught : Patient, Spouse Readiness to Learn : Cooperative Readiness to Learn : Demonstration, Explanation, Printed materials, Teach back method, Video/Educational TV JUAN FRAZIER Rn-Ortho Nurse Navigator - 08/31/2018 15:00 EST Education Topics, Orthopedic Pre-Op Ortho Pre-Op Education Grid Ed-Assistive Devices : Verbalizes understanding DVT Prophylaxis : Verbalizes understanding Family Instructions : Verbalizes understanding Herbs/Supplement Instructions : Verbalizes understanding Laboratory Studies : Verbalizes understanding Medication Instructions : Verbalizes understanding NPO : Verbalizes understanding Ed-Occupational Therapy : Verbalizes understanding Pain Management : Verbalizes understanding Physical Prep : Verbalizes understanding Physical Therapy : Verbalizes understanding Plan of Care : Verbalizes understanding Positioning : Verbalizes understanding Post-op Activity/Exercise Regimen : Verbalizes understanding Postoperative Home Needs : Verbalizes understanding Post-operative Monitoring : Verbalizes understanding Post-Op Orthopedic Equipment : Verbalizes understanding Procedure Information : Verbalizes understanding Respiratory Care : Verbalizes understanding Surgical Site : Verbalizes understanding Tubes/Drains/IV's : Verbalizes understanding Turn/Cough/Deep Breathe : Verbalizes understanding Weight Bearing : Verbalizes understanding Ed-Orthopedic Pre-Op, Other : Verbalizes understanding JUAN FRAZIER Rn-Ortho Nurse Navigator - 08/31/2018 15:00 EST documented in this encounter Plan of Treatment Not on file documented as of this encounter Visit Diagnoses Not on filedocumented in this encounter
--- OUTSIDE RECORDS SUMMARY | 2025-05-03 10:29 | XMS_ITS | Encounter Summary ---
Author Organization [employer] ([place], [place], [place], [place]) Address [address] [place] [address] Care Team Providers Care Senior Sas Programmer Name Role Phone Unavailable Primary Care Provider Unavailabl e Encounter Details Date Type Department Care Team (Late st Contact Info) Description 08/31/[address] [facility] [place] Family Medicine [facility] [place] [address] ProviderTree MD [address] [place] [address] Social History Tobacco Use Types Packs/Day Years Used Date Smoking Tobacco: Never Assessed Sex and Gender Information Value Date Recorded Sex Assigned at Male 01/06/2022 8:27 PM CDT Legal Sex Male 8:27 PM CDT Gender Identity Male 01/06/2022 8:27 PM CDT Sexual Orientation Not on file documented as of this encounter Miscellaneous Notes * Cerner Conversion Note - Historical ProviderMD - 08/31/2018 7:06 AM LEAD PRESSMAN ROTO GRAVURE PRINTING Patient: PETRA VILLALBA Age: 62 years Sex: Male : 1955 Associated Diagnoses: None Author: BEATRIZ RAWLS MD-ORT Alert, walked by himself yesterday as PT had gone home. Afeb VS stable distal nvs intact xrays good Hb 15.4 to 14.0 post op stable Plan: walk, dc home Lovenox, percocet 5 RTO 2 weeks Electronically signed by Amira [facility] Conversion Supervisor Backfilling Cerduncan at 10/27/2022 8:14 PM CDT documented in this encounter Plan of Treatment Not on file documented as of this encounter Visit Diagnoses Not on filedocumented in this encounter
--- OUTSIDE RECORDS SUMMARY | 2025-05-03 10:29 | XMS_ITS | Encounter Summary ---
Author Organization [employer] ([place], [place], [place], [place]) Address [address] [place] [address] Care Team Providers Care Presto Log Operator Name Role Phone Unavailable Primary Care Provider Unavailabl e Encounter Details Date Type Department Care Team (Late st Contact Info) Description 08/31/2018 Transcribed Document [facility] Family Medicine [facility] [place] [address] ProviderTree MD [facility] [place], [place] [id number] Social History Tobacco Use Types Packs/Day Years Used Date Smoking Tobacco: Never Assessed Sex and Gender Information Value Date Recorded Sex Assigned at Male 01/06/2022 8:27 PM CDT Legal Sex Male 8:27 PM CDT Gender Identity Male 01/06/2022 8:27 PM CDT Sexual Orientation Not on file documented as of this encounter Miscellaneous Notes * Cerner Conversion Note - Tree ProviderMD - 08/31/2018 12:39 PM HAIR MIXER Treatment Intervention, PT Entered On: 08/31/2018 16:05 EST Performed On: 08/31/2018 15:55 EST by CARLOS CASTILLO, PT General Information, PT Visit Type, PT : Treatment Note Patient Orders : Order Date Order Ordering 08/30/2018 15:00 PT Evaluation and Treatment Ordered By: BEATRIZ RAWLS MD-ORT 08/30/2018 15:00 PT Treatment Instructions Ordered By: BEATRIZ RAWLS MD-ORT 08/30/2018 15:00 PT Treatment Instructions Ordered By: BEATRIZ RAWLS MD-ORT 08/30/2018 15:00 PT Treatment Instructions Ordered By: BEATRIZ RAWLS MD-ORT 08/30/2018 15:00 PT Treatment Instructions Ordered By: BEATRIZ RAWLS MD-ORYuko 08/30/2018 15:00 PT Treatment Instructions Ordered By: BEATRIZ RAWLS MD-ORYuko 08/31/2018 12:39 Physical Therapy Additional Tx Ordered By: TEJAL ROBERTS, PT Active Diagnoses : 08/30/2018 00:00 Osteonecrosis, unspecified Admission Date : 08/30/2018 06:24 Personal Devices : Personal Devices No Devices Recorded Assistive Devices : Assistive Devices No Devices Recorded CARLOS CASTILLO, PT - 08/31/2018 15:55 EST General Status Patient Received Status : Up in chair Treatment Start Time : 08/31/2018 14:16 EST Patient Left Status : Up in chair, Family/Visitors at bedside, Communication board completed, All needs met and within reach Treatment End Time : 08/31/2018 14:54 EST Treatment Time : 38 Minute(s) CARLOS CASTILLO, PT - 08/31/2018 15:55 EST Functional Mobility Mobility Grid Bed Roll Left : Supervision/set-up Bed Scooting : Supervision/set-up Supine to Sit : Supervision/set-up (Comment: on mat table in PT gym. [CARLOS CASTILLO, PT - 08/31/2018 15:55 EST] ) Sit to Stand : Supervision/set-up Stand to Sit : Supervision/set-up (Comment: cues to reach for surface he is sitting on. [CARLOS CASTILLO, PT - 08/31/2018 15:55 EST] ) Sit to Supine : Supervision/set-up (Comment: on mat table in PT gym. [CARLOS CASTILLO, PT - 08/31/2018 15:55 EST] ) CARLOS CASTILLO, PT - 08/31/2018 15:55 EST AM PAC Basic Mobility Turning Over in Bed : A little Sit Down On/Stand Up From Chair w/ Arms : A little Move Back Lying to Sitting Side of Bed : A little Moving To/From a Bed to Chair : A little Need to Walk in Hospital Room : A little Climbing 3-5 Steps with a Railing : A little AM-[facility] Basic Mobility Raw Score : 18 AM-PAC Basic Mobility Standardized Score : 43.63 AM-[facility] Basic Mobility CMS 0-100% Score : 46.58 % CARLOS CASTILLO, PT - 08/31/2018 15:55 EST Image 1 - Images currently included in the form version of this document have not been included in the text rendition version of the form. Functional Limitation Reporting, PT CARLOS CASTILLO, PT - 09/02/2018 8:10 EST Functional Limitation Visit Type, PT : At time of discharge Severity Determination Method, PT : Clinical Judgment, AM PAC Basic Mobility Mobility G8980 - Discharge Mod, PT : 40 - 59% impaired, limited or restricted (CK) CARLOS CASTILLO, PT - 08/31/2018 15:55 EST Gait Training/Assessment, PT Weight Bearing Status : As tolerated right lower extremity Gait Assistance Level : Supervision Walking Distance : 150' with drain and catheter. Ambulatory Devices : Gait belt, Walker, front wheel Gait Deviations : Yes Right Lower Gait Deviation : Push off, decreased, Stance time, decreased, Weight bearing, decreased Gait Training Comment : PT educated patient on how to normalize his gait with a heel toe pattern. CARLOS CASTILLO, PT - 08/31/2018 15:55 EST Edu Topics Physical Therapy Education Grid Bed Mobility Training : Needs reinforcement Gait Training : Needs reinforcement Role of Physical Therapy : Verbalizes understanding Transfer Training : Needs reinforcement CARLOS CASTILLO, PT - 08/31/2018 15:55 EST Indication Assesessment, PT Physical Therapy Indicated : Yes CARLOS CASTILLO, PT - 08/31/2018 15:55 EST Plan of Care, PT PT Tx Plan/Goals Established w Patient : No PT Frequency Rehab : Discontinue CARLOS CASTILLO, PT - 08/31/2018 15:55 EST Direct Service Professional Goals Mobility/Bed Mobility LTG PT Grid Goal #1 Goal #2 Activity : Supine to sit Sit to stand Assist : Supervision or set-up Supervision or set-up Equipment : Bed, hospital Walker, front wheel Date to Meet : 09/07/2018 EST 09/07/2018 EST Goal Status : Goal met Goal met Date Met : 08/31/2018 EST 08/31/2018 EST CARLOS CASTILLO, PT - 08/31/2018 15:55 EST CARLOS CASTILLO, PT - 08/31/2018 15:55 EST Ambulation LTG Grid Goal #1 Device : Walker, front wheel Distance : 150 ft Assist : Supervision or set-up Date to Meet : 09/07/2018 EST Goal Status : Goal met Date Met : 08/31/2018 EST CARLOS CASTILLO, PT - 08/31/2018 15:55 EST Stairs LTG Grid Goal #1 Device : Walker, front wheel Number of Steps : 1 Handrail(s) : No handrails Assist : Supervision or set-up Date to Meet : 09/07/2018 EST Goal Status : Goal met Date Met : 08/31/2018 EST Comment : retro step CARLOS CASTILLO, PT - 08/31/2018 15:55 EST Treatment Note Subjective Comment : Patient agrees to PTx. Nsg. Ok'd PTx. Additional Objective Information : Patient was independent with TKR HEP. Joint job coaching was present for teaching and states understanding and importance of completing exercises 3x day. Patient completed all ex: ankle pumps, QS, GS, heel slides, SLR, hip ABDuction, SAQs, knee flexion in sitting, marching in sitting, LAQ in sitting. Assessment : Patient presents with decreased mobility after surgery, but has made strides with ambulation, transfers, and mobility. Plan for Treatment : D/C PTx due to patient being discharged home. CARLOS CASTILLO, PT - 08/31/2018 15:55 EST Pain Assessment Pain Scaled Used : 0-10 Pain scale Pain Score Pre-Intervention : 4 Location : Knee, right Pain Improved by : Medication CARLOS CASTILLO PT - 08/31/2018 15:55 EST Image 1 - Images currently included in the form version of this document have not been included in the text rendition version of the form. Anticipated Discharge Needs, OT/PT Anticipated Discharge to : Home, with family care, Home, with home health Recommend Continued Therapy at Discharge : Yes CARLOS CASTILLO, PT - 08/31/2018 15:55 EST [place] [facility] Charges PT Therap. Exercise 15 min : 1 Gait Training Each 15 Min : 2 CARLOS CASTILLO PT - 08/31/2018 15:55 EST documented in this encounter Plan of Treatment Not on file documented as of this encounter Visit Diagnoses Not on filedocumented in this encounter
[2025-05-03 10:32] LABS: Chloride 106 mmol/L (98-107)
[2025-05-03 10:33] LABS: Albumin Level 4.0 g/dl (3.5-5.0); Potassium 3.9 mmoL/L (3.5-5.1); Sodium 142 mmol/L (136-145)
[2025-05-03 10:35] LABS: Estimated Glomerular Filt Rate 67 ml/min (>60); GFR (African American) 81 ML/MIN (>60)
[2025-05-03 10:36] LABS: Alanine Aminotransferase 33 U/L (12-78); Albumin/Globulin Ratio 1.5 (1.1-1.8); Alkaline Phosphatase 97 U/L (38-126); Anion Gap 15.9 mEq/L (5-15); Aspartate Amino Transferase 37 U/L (17-59); Bilirubin,Total 0.7 mg/dl (0.2-1.3); Calcium 8.8 mg/dl (8.4-10.2); Carbon Dioxide 24 mmol/L (22.0-30.0); Globulin 2.7 g/dL (1.3-3.2); Glucose 120 mg/dl (74-100); Total Protein,Serum 6.7 g/dl (6.3-8.2)
[2025-05-03 10:49] VITALS: BMI 36.1
[2025-05-03 10:56] LABS: Blood Urea Nitrogen 23 mg/dl (9-20); Creatinine Clearance Estimated 98 mL/min (50-200); Creatinine,Serum 1.10 mg/dl (0.66-1.25)
[2025-05-03] MEDS: ACETAMINOPHEN 325MG TAB 650 MG (11:08)
[2025-05-03] MEDS: DEXAMETHASONE 4MG TABLET 20 MG (11:09)
[2025-05-03 11:19] LABS: Total Cells Counted 100
[2025-05-03 11:20] LABS: Anisocytosis 1+; Hypochromasia 2+; Ovalocytes 1+
[2025-05-03] MEDS: HYALURONIDASE SUBCUT (11:59)
[2025-05-03] MEDS: DARATUMUMAB SUBCUT (11:59)
[2025-05-03 12:00] VITALS: BP 112/58; PULSE 82; RESP 17; TEMP 37.1; O2SAT 96
[2025-05-04 15:49] LABS: Albumin 3.6 g/dL (2.9-4.4); Alpha-1-Globulin 0.3 g/dL (0.0-0.4); Alpha-2-Globulin 0.8 g/dL (0.4-1.0); Gamma Globulin 0.5 g/dL (0.4-1.8)
[2025-05-07 16:12] LABS: Immunoglobulin A, Qn 60 mg/dL (61-437); Immunoglobulin G, Qn 556 mg/dL (603-1613); Immunoglobulin M, Qn 15 mg/dL (20-172)
== END 2025-05-03 23:59 | disposition home or self-care (01) ==
LOC: INF 09:54
PROVIDERS: PCP Family Medicine; Visit Provider Internal Medicine Medical Oncology
DX: C90.00 Multiple myeloma not having achieved remission (principal)
CPT/HCPCS: 80053; 82784; 83521; 84155; 84165; 85007; 85025; 85027; 86334; 96401; J8540; J9144

== ENCOUNTER 2025-05-15 13:53 | Outpatient (RCR) | payer MEDICARE, SELFPAY | END 2025-05-15 23:59 | disposition home or self-care (01) | LOC: PT 13:53 | PROVIDERS: PCP Family Medicine; Visit Provider Nurse Practitioner Family | DX: S22.000D Wedge compression fracture of unspecified thoracic vertebra, subsequent encounter for fracture with routine healing; X58.XXXD Exposure to other specified factors, subsequent encounter; C90.00 Multiple myeloma not having achieved remission | CPT/HCPCS: 97110 ==

== ENCOUNTER 2025-05-22 12:06 | Outpatient (CLI) | payer MEDICARE, SELFPAY ==
--- OUTSIDE RECORDS SUMMARY | 2025-03-22 09:28 | XMS_ITS | Encounter Summary ---
Author Organization [facility] Address [address] [id number] Care Team Providers Care Iv Technician Name Role Phone Parrish Thurman MD Primary Care Provider + [phone] Reason for Visit * Reason Comments OP Infusion * Episode Based Medications (Routine) - Authorized Specialty Diagnoses / Procedures Referred By Halle banuelos Referred To Contact Diagnoses Multiple myeloma not having achieved remission (CMS/HCC) Procedures DRd: Daratumumab / Lenalidomide / Dexamethasone INDUCTION (Possible Velcade) Mohit Villarreal MD [address] [address] Phone: tel: fax: Mohit Villarreal MD [address] [address] Phone: tel: fax: Referral ID Status Reason Start Date Expiration Date V isits Requested Visits Authorized [id number] Authorized 11/27/2024 05/29/2026 1 16 Encounter Details Date Type Department Care Team (Latest Contact Info) Description 03/22/2025 10:28 AM EDT - 03/22/2025 11:59 PM EDT Hospital Encounter [facility] [address] [place] [address] Multiple myeloma, remission status unspecified (CMS/HCC) (Primary [...] any time in the past 12 m [facility], were you homeless or living in a care home (including now)? 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 0 10/26/2024 CAGE Questionnaire Score 0 025 Utilities Answer Date Recorded In the past 12 months has e [employer], gas, oil, or water [employer] threatened to shut off services in your home? 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 file Not on file Not on file documented as of this encounter Last Filed Vital Signs Vital Sign Reading Time Taken Comments Blood Pressure 131/78 03/22/2025 10:30 AM EDT Pulse 92 03/22/2025 10:30 AM EDT Temperature 36.6 C (97.9 F) 03/22/2025 10:30 AM EDT Respiratory Rate 17 03/22/2025 10:30 AM EDT Oxygen Saturation 96% 03/22/2025 10:30 AM EDT Inhaled Oxygen Concentration - - Weight 109 kg (240 lb 4.8 oz) 03/22/2025 10:30 A M EDT Height 174 cm (5' 8.5 ) 03/22/2025 10:30 AM EDT Body Mass Index 36.01 03/22/2025 10:30 AM EDT documented in this encounter Medications at Time of Discharge acetaminophen (Tylenol) 500 MG tablet Take 2 tablets by mouth every 6 hours as needed for pain. 100 tablet 10/28/2024 acyclovir (Zovirax) 400 MG tabletIndications:Mu ltiple myeloma not having achieved remission (CMS/HCC) Take 2 tablets by mouth 2 times a day. 120 tablet 3 03/19/2025 Calcium Carbonate-Vitamin D (calcium-vitamin D) 500-200 MG-UNIT tabletIndications:Hy pocalcemia Take 1 tablet by mouth daily. 30 tablet 11 01/25/2025 Fluticasone-Umeclidi n-Vilant (Trelegy Ellipta) 100-62.5-25 MCG/ACT aerosol powder Inhale 1 puff in the morning. gabapentin (Neurontin) 300 MG capsule Take 1 capsule by mouth nightly. 30 capsule 1 03/22/2025 irbesartan-hydroCHLO ROthiazide (Avalide) 150-12.5 MG tablet Take [...] NEEDED FOR SEVERE PAIN 60 tablet 03/01/2025 lenalidomide (Revlimid) 15 MG capsuleIndications:M ultiple myeloma [...] not crush or chew. 60 tablet 1 03/19/2025 5 documented as of this encounter Plan of Treatment Upcoming Encounters Date Type Department Care Team (Late st Contact Info) Description 05/28/2025 1:00 PM EST Office Visit Medical Office Building [facility] [address] [facility], [address] [place] [address] Afshan Bryan MD [address] [facility] [address] [place] [address] documented as of this encounter Goals Goal Patient Goal Type Associated Problems Recent Progress Patient-Stated? Author Autogenerat ed Goal Care Plan Autogenerated Problem No Rajiv Garcias MD documented as of this encounter Visit Diagnoses Diagnosis Multiple myeloma, remission status unspecified (CMS/HCC)- Primary documented in this encounter Administered Medications Inactive Administered Medications - up to 3 most recent administrations Medication Order MAR Action Action Date Dose Rate Site acetaminophen (Tylenol) tablet 650 mg 650 mg, Oral, Once, 1 dose, On Alice 03/22/25 at 1115, RoutineIndications:Mul tiple myeloma, remission status unspecified (CMS/HCC) Given 03/22/2025 10:54 AM EDT 650 mg daratumumab-hyaluronid ase-fihj (Darzalex Faspro) chemo injection 1,800 mg 1,800 mg, Subcutaneous, Administer over 5 Minutes, Once, Inject 15 mL into subcutaneous tissue of abdomen over 3-5 minutes, On Alice 03/22/25 at 1215, For 1 doseIndications:Multip le myeloma, remission status unspecified (CMS/HCC) New Syringe/Cartridg e 03/22/2025 11:54 AM EDT 1,800 mg Left Lower Abdomen dexamethasone (Decadron) tablet 20 mg 20 mg, Oral, Once, 1 dose, On Alice 03/22/25 at 1115, RoutineIndications:Mul tiple myeloma, remission status unspecified (CMS/HCC) Given 03/22/2025 10:53 AM EDT 20 mg diphenhydrAMINE (Benadryl) tablet 50 mg 50 mg, Oral, Once, 1 dose, On Alice 03/22/25 at 1115, RoutineIndications:Justo lindsey myeloma, remission status unspecified ([facility]) Given 03/22/2025 10:54 AM EDT 50 mg documented in this encounter Additional Health Concerns Active Problems Noted Date Diagnosed Date Autogenerated Problem 10/19/2024 Assessment Noted Time A fall risk assessment has been complete d for the patient 03/22/2025 10:32 AM EDT A Body Mass Index follow-up plan has been documented for the patient 03/22/2025 12:01 PM EDT documented as of this encounter Care Teams Iv Technician Relationship Specialty Start Date End Date Parrish Thurman MD [address] [place] [address] PCP - General 10/19/24 documented as of this encounter
--- OUTSIDE RECORDS SUMMARY | 2025-04-05 13:00 | XMS_ITS | Encounter Summary ---
Author Organization [facility] Address [address] [id number] Care Team Providers Care Tub Tender Name Role Phone Parrish Thurman MD Primary Care Provider + [phone] Reason for Visit * Episode Based Medications (Routine) - Authorized Specialty Diagnoses / Procedures Referred By Halle banuelos Referred To Contact Diagnoses Multiple myeloma not having achieved remission (CMS/HCC) Procedures DRd: Daratumumab / Lenalidomide / Dexamethasone INDUCTION (Possible Velcade) Mohit Villarreal MD 800 [facility] Cancer [address] [address] Phone: tel: fax: Mohit Villarreal MD [address] [address] Phone: tel: fax: Referral ID Status Reason Start Date Expiration Date V isits Requested Visits Authorized [id number] Authorized 11/27/2024 05/29/2026 1 16 Encounter Details Date Type Department Care Team (Latest Contact Info) Description 04/05/2025 2:00 PM EDT - 04/05/2025 11:59 PM EDT Hospital Encounter P[facility] H Infusion 800 [place] [address] Multiple myeloma, remission status unspecified (CMS/HCC) (Primary [...] any time in the past 12 m [facility], were you homeless or living in a chcf (including now)? No 09/14/2024 CAGE ASSESSMENT Answer [...] drink first t kiet in the morning (EYE-QUALITY PROJECT MANAGER) to steady your nerves or to get rid of a hangover? 0 10/26/2024 CAGE Questionnaire Score 0 025 Utilities Answer Date Recorded In the past 12 months has th e [employer], gas, oil, or water company threatened to shut off services in your home? 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 [...] Joint [address], [address] [place] [address] Afshan Bryan MD [address] [place] [address] documented as of this encounter Goals Goal Patient Goal Type Associated Problems Recent Progress Patient-Stated? Author Autogenerat ed Goal Care Plan Autogenerated Problem No Rajiv Garcias MD documented as of this encounter Procedures Procedure Name Priority Date/Time Associated Diagnosis Comments CBC WITH AUTO DIFFERENTIAL Routine 04/05/2025 2:20 PM EDT Multiple myeloma, remission status unspecified ([facility] documented in this encounter Results * (ABNORMAL) CBC and differential (04/05/2025 2:20 PM EDT) WBC Count 4.72 3.70 - 10.30 10*3/uL LAB HEMATOLOGY METHOD 04/05/2025 4:07 PM EDT [facility] RBC Count 3.80(L) 4.60 - 6.10 10*6/uL LAB HEMATOLOGY METHOD 04/05/2025 4:07 PM EDT [facility] HGB 10.8(L) 13.7 - 17.5 g/dL LAB HEMATOLOGY METHOD 04/05/2025 4:07 PM EDT [facility] HCT 33.6(L) 40.0 - 51.0 % LAB HEMATOLOGY METHOD 04/05/2025 4:07 PM EDT [facility] Platelet Count 182 155 - 369 10*3/uL LAB HEMATOLOGY METHOD 04/05/2025 4:07 PM EDT [facility] MCV 88 79 - 98 fL LAB HEMATOLOGY METHOD 04/05/2025 4:07 PM EDT [facility] MCH 28.4 26.0 - 32.0 pg LAB HEMATOLOGY METHOD 04/05/2025 4:07 PM EDT [facility] MCHC 32.1 30.7 - 35.5 g/dL LAB HEMATOLOGY METHOD 04/05/2025 4:07 PM EDT [facility] RDW 18.9(H) 11.5 - 14.5 % LAB HEMATOLOGY METHOD 04/05/2025 4:07 PM EDT [facility] MPV 11.7 8.8 - 12.5 fL LAB HEMATOLOGY METHOD 04/05/2025 4:07 PM EDT [facility] nRBC 0.0 <=0.0 per 100 WBCs LAB HEMATOLOGY METHOD 04/05/2025 4:07 PM EDT [facility] Differential Type Automated LAB HEMATOLOGY METHOD 04/05/2025 4:07 PM EDT [facility] Neutrophils % 32 % LAB HEMATOLOGY METHOD 04/05/2025 4:07 PM EDT [facility] Lymphocytes % 31 % LAB HEMATOLOGY METHOD 04/05/2025 4:07 PM EDT [facility] Monocytes % 29 % LAB HEMATOLOGY METHOD 04/05/2025 4:07 PM EDT [facility] Eosinophils % 6 % LAB HEMATOLOGY METHOD 04/05/2025 4:07 PM EDT [facility] Basophils % 2 % LAB HEMATOLOGY METHOD 04/05/2025 4:07 PM EDT [facility] Immature Granulocytes % 0 % LAB HEMATOLOGY METHOD 04/05/2025 4:07 PM EDT [facility] Neutrophils Absolute 1.50(L) 1.60 - 6.10 10*3/uL LAB HEMATOLOGY METHOD 04/05/2025 4:07 PM EDT [facility] Lymphocytes Absolute 1.48 1.20 - 3.90 10*3/uL LAB HEMATOLOGY METHOD 04/05/2025 4:07 PM EDT [facility] Monocytes Absolute 1.37(H) 0.30 - 0.90 10*3/uL LAB HEMATOLOGY METHOD 04/05/2025 4:07 PM EDT [facility] Eosinophils Absolute 0.29 0.00 - 0.50 10*3/uL LAB HEMATOLOGY METHOD 04/05/2025 4:07 PM EDT [facility] Basophils Absolute 0.07 0.00 - 0.10 10*3/uL LAB HEMATOLOGY METHOD 04/05/2025 4:07 PM EDT [facility] Immature Granulocytes Absolute 0.01 0.00 - 0.06 10*3/uL LAB HEMATOLOGY METHOD 04/05/2025 4:07 PM EDT [facility] Blood Venous blood specimen / Unknown Venipuncture / Unknown 04/05/2025 2:20 PM EDT 04/05/2025 2:45 PM EDT Narrative [facility] - 04/05/2025 4:07 PM EDT Therapeutic decision making should be based on absolute values, rather than percentages. us Mohit Villarreal MD LAB BLOOD ORDERABLES Final Result [facility] [address] [place] [address] documented in this encounter Visit Diagnoses Diagnosis [...] documented as of this encounter Care Teams Tub Tender Relationship Specialty Start Date End Date Parrish Thurman MD [address] [place] [address] PCP - General 10/19/24 documented as of this encounter
--- OUTSIDE RECORDS SUMMARY | 2025-05-22 12:09 | XMS_ITS | Encounter Summary ---
Author Organization [facility] Address [address] [place] [address] Care Team Providers Care Certified Alcohol And Drug Counselor Name Role Phone Parrish Thurman MD Primary Care Provider + [phone] Encounter Details Date Type Department Care Team [...] any time in the past [address] 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 file Not on file Not on file documented as of this encounter Plan of Treatment Upcoming Encounters Date Type Department Care Team ([facility] Contact Info) Description 05/28/2025 1:00 PM EST Office Visit Medical Office Building Surgery Spine & Joint [address] [facility], [address] [place] [address] Afshan Bryan MD [address] [facility] [address] [place] [address] documented as of this encounter [...] documented as of this encounter Care Teams Certified Alcohol And Drug Counselor Relationship Specialty Start Date End Date Parrish Thurman MD [facility] [address] [address] PCP - General 10/19/24 documented as of this encounter
--- OUTSIDE RECORDS SUMMARY | 2025-05-22 12:09 | XMS_ITS | Encounter Summary ---
Author Organization [employer] ([place], [place], [place], [place], [place]) Address [address] [place] [address] Care Team Providers Care Engraver Tender Name Role Phone Unavailable Primary Care Provider Unavailabl e Encounter Details Date Type Department Care Team (Late st Contact Info) Description 08/30/2018 Transcribed Document [facility] [place] Medicine [address] [place] [address] ProviderTree MD [address] [place], [place] [id number] Social History Tobacco Use Types Packs/Day Years [...] Tree Alonso MD - 08/30/2018 10:15 AM FACILITY SALES AND ADMIN Procedural Documentation Entered On: 08/30/2018 10:21 EST Performed On: 08/30/2018 10:15 EST by TANA SAENZ RN Procedure Documentation Procedure Case Attendee : BAKARI SANCHEZ MD Procedure Case Attendee Role : Anesthesiologist Procedure Case Attendee Role 2 : software tools engineer Case Attendee 2 : TANA SAENZ RN Procedure Case Attendee Role 3 : software tools engineer Case Attendee 3 : DESEAN GUILLEN RN [...] prep and drape- premeds given- inected per Dr. Sanchez using nerve stim and ultrasound to guide. [...] TANA SAENZ RN - 08/30/2018 10:22 EST Electronically signed by Amira [facility] Conversion Port Cdl A Driver Cerner at 10/27/2022 8:27 PM CDT documented in this encounter Plan of Treatment Not on file documented as of this encounter Visit Diagnoses Not on filedocumented in this encounter
--- OUTSIDE RECORDS SUMMARY | 2025-05-22 12:09 | XMS_ITS | Encounter Summary ---
Author Organization [employer] ([place], [place], [place], [place], [place]) Address [address] [place] [address] Care Team Providers Care Practice Billing Associate Name Role Phone Unavailable Primary Care Provider Unavailabl e Encounter Details Date Type Department Care Team (Late st Contact Info) Description 08/30/2018 Transcribed Document [facility] [place] [address] [place] [address] ProviderTree MD [address] [place] [address] Social History Tobacco Use Types [...] Tree Alonso MD - 08/30/2018 12:44 PM CUPOLA TENDER HELPER [facility] Main OR Preop Summary Primary Physician: BEATRIZ RAWLS MD-ORYuko Finalized Date/Time: 08/30/18 13:52:13 Pt. Name: DEEJAYPETRA D.O.B./Sex: 1955 Male Med Rec #: [id number] Physician: BEATRIZ RAWLS MD-ORYuko Financial #: [id number] Pt. Type: O Room/Bed: /6 Admit/Disch: 08/30/18 06:24:00 - Institution: [facility] PreOp Case Times Entry 1 In Preop 08/30/18 05:35:00 Ready for Holding n/a Room Patient Ready for 08/30/18 10:45:00 Surgery Patient Out of Preop 08/30/18 12:03:00 Patient Out of n/a Holding Room Last Modified By: TANA SAENZ RN 08/30/18 13:52:11 [facility] PreOp Case Times Audit 08/30/18 13:52:11 Cane Flume Chute Operator: MONICO Modifier: BOWLINC <+> 1 Patient Out of Preop 08/30/18 10:52:31 Cane Flume Chute Operator: MONICO Modifier: BOWLINC <+> 1 Patient Ready for Surgery Finalized By: TANA SAENZ, RN Document Signatures Signed By: TANA SAENZ RN 08/30/18 13:52 Electronically signed by Amira [facility] Conversion Substation Engineer Cerner at 10/27/2022 8:06 PM CDT documented in this encounter Plan of Treatment Not on file documented as of this encounter Visit Diagnoses Not on filedocumented in this encounter
--- OUTSIDE RECORDS SUMMARY | 2025-05-22 12:09 | XMS_ITS | Encounter Summary ---
Author Organization [facility] Address [address] [place] [id number] Care Team Providers Care Lab Rep Name Role Phone Parrish Thurman MD Primary Care Provider + [phone] Reason for Referral * Consultation (Routine) - Authorized Specialty Diagnoses / Procedures Referred By Halle banuelos Referred To Contact Hematology and Oncology Diagnoses Multiple myeloma, remission status unspecified (CMS/HCC) Mohit Villarreal MD [address] [facility] Cancer [address] [address] Phone: tel: fax: Referral ID Status Reason Start Date Expiration Date Visits Requested Visits Authorized [id number] Authorized Specialty Services Required 03/27/2025 09/26/2026 1 1 Encounter Details Date Type Department Care Team ([facility] Contact Info) Description 03/27/2025 Orders Only [facility] Hematology/BMT and Cellular Therapy Program [address] [place] [address] Natalie Andrews, RN [facility] Multiple myeloma, remission [...] time in the past [address] [facility], were you homeless or living in a fci (including now)? 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 file Not on file Not on file documented as of this encounter Plan of Treatment Upcoming Encounters Date Type Department Care Team ([facility] st Contact Info) Description 05/28/2025 1:00 PM EST Office Visit Medical Office Building Surgery Spine & Joint [address], [address] [place] [address] Afshan Bryan MD [address] [place] [address] Scheduled Referrals Name Type Priority [...] documented as of this encounter Care Teams Lab Rep Relationship Specialty Start Date End Date Parrish Thurman MD [address] [facility] [address] [place] [address] PCP - General 10/19/24 documented as of this encounter
--- OUTSIDE RECORDS SUMMARY | 2025-05-22 12:09 | XMS_ITS | Encounter Summary ---
Author Organization [facility] Address [address] [place] [address] Care Team Providers Care Organizational Effectiveness Consultant Name Role Phone Parrish Thurman MD Primary Care Provider + [phone] Encounter Details Date Type Department Care Team (Late st Contact Info) Description 03/23/2025 Orders Only [facility] Hematology/BMT and Cellular Therapy Program [address] [place] [address] [place] [address] Natalie Andrews RN [facility] Multiple myeloma, remission [...] time in the past 12 m [facility], were you homeless or living in [...] drink first t kiet in the morning (EYE-COUNTRY MANAGER) to steady your nerves or to [...] Start Date Job End Date 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 file Not on file Not on file documented as of this encounter Plan of Treatment Upcoming Encounters Date Type Department Care Team (Late st Contact Info) Description 05/28/2025 1:00 PM EST Office Visit Medical Office Building Surgery Spine & Joint [address] [place] [address] Afshan Bryan MD [address] [facility] [address] [place] [address] Scheduled Orders Name Type Priority Associated Diagnoses Orde r Schedule Protein electrophoresis, serum Lab Routine Multiple myeloma, remission status unspecified (CMS/HCC) Expected: 05/17/2025, Expires: 09/24/2026 [place] Lambda Quant Free Light Chains w/Ratio Lab [...] documented as of this encounter Care Teams Organizational Effectiveness Consultant Relationship Specialty Start Date End Date Parrish Thurman MD [address] [place] [address] PCP - General 10/19/24 documented as of this encounter
--- OUTSIDE RECORDS SUMMARY | 2025-05-22 12:09 | XMS_ITS ---
Author Organization [facility] Address [address] [place] [address] Care Team Providers Care Shrimp Boat Captain Name Role Phone Parrish Thurman MD Primary Care Provider [phone] Active Problems Problem Noted Date Diagnosed Date [...] 11/08/2024 Cancer Staging:Clinical stage from 11/13/2024:RISS Stage III(Dmpi-1-bnujpkkqtqpdv (mg/L): 7.7, Albumin (g/dL): 3.6, ISS: Stage [...] 09/08/2010 Monoclonal gammopathy 10/27/2024 Overview (11/10/2024): IgG [place] Current Treatment and Therapy Plans (HEM) Outpatient [...] 15, Cycle 6 - Planned for 05/03/2025) jiklmrocchw-kzgesplxtgwhq-is h j (Darzalex Faspro) qhocogxehbb-xiaeeahbwdmbm-gc hj (Darzalex Faspro) chemo injection 1,800 mg mvpugiohwrm-bsmpljicinpsc-al hj (Darzalex Faspro) chemo injection 1,800 mg Other Current Plans (Hem/Onc) Zoledronic Acid* Plan Start Date:04/19/2025 Plan Provider:Mohit Villarreal MD Linked Problems Age-related osteoporosis wit hout current pathological fracture Treatment Medications No medications scheduled. Line Care (Peripheral)* Plan Start Date:11/23/2024 Plan Provider:iHlario Burger MD Linked Problems Age-related osteoporosis wit [...]
--- OUTSIDE RECORDS SUMMARY | 2025-05-22 12:09 | XMS_ITS | Encounter Summary ---
Author Organization [employer] ([place], [place], [place], [place], [place]) Address [address] [place] [address] Care Team Providers Care County Auditor Name Role Phone Unavailable Primary Care Provider Unavailabl e Encounter Details Date Type Department Care Team (Late st Contact Info) Description 08/30/2018 Transcribed Document [facility] Family Medicine [address] [place] [address] ProviderTree MD [address] [place], [place] [id number] Social History Tobacco Use Types Packs/Day Years [...] - Tree ProviderMD - 08/30/2018 2:59 PM PRE CODER Pain Assessment Entered On: 08/31/2018 15:30 EST Performed On: 08/31/2018 16:27 EST by Xochilt Ba RN Intervention Information: oxyCODONE Performed by Xochilt Ba RN on 08/31/2018 15:27:00 EST oxyCODONE,10mg Oral,Pain (Severe 7-10) Pain Assessment Pain Scale Goal : 4 Pain Consult, Notes : patient d/c prior to reassessment due Xochilt Ba RN - 08/31/2018 15:30 EST documented in this encounter Plan of Treatment Not on file documented as of this encounter Visit Diagnoses Not on filedocumented in this encounter
--- OUTSIDE RECORDS SUMMARY | 2025-05-22 12:09 | XMS_ITS | Encounter Summary ---
Author Organization [employer] ([place], [place], [place], [place], [place]) Address [address] [place] [address] Care Team Providers Care Poultry Veterinarian Name Role Phone Unavailable Primary Care Provider Unavailabl e Encounter Details Date Type Department Care Team (Late st Contact Info) Description 08/30/2018 Transcribed Document [facility] [place] Family Medicine [address] [place] [address] ProviderTree MD [facility] [place] [id number] Social History Tobacco Use Types Packs/Day Years [...] - Tree ProviderMD - 08/30/2018 2:59 PM TRANSMISSION DESIGN ENGINEER Evaluation, Occupational Therapy Entered On: 08/31/2018 14:39 EST Performed On: 08/31/2018 10:24 EST by LEVAR BAJWA OTR/Sis General Information, OT Visit Type, OT : [...] : Diagnosis: R TKA LEVAR BAJWA OTR/Sis - 08/31/2018 14:34 EST General Status Patient Received Status : Supine in bed Treatment Start Time : 08/31/2018 9:57 EST Patient Left Status : Up in chair, RN/PCT informed, All needs met and within reach Treatment End Time : 08/31/2018 10:24 EST Treatment Time : 27 Minute(s) LEVAR BAJWA OTR/Sis - 08/31/2018 14:34 EST History and Environment, OT [...] No Ramp : No LEVAR BAJWA OTR/Sis - 08/31/2018 14:34 EST Prior LOF Bathing, OT : Independent Prior LOF Bed Mobility : Independent Prior LOF Upper Body Dressing, OT : Independent Prior LOF Lower Body Dressing, OT : Independent Prior LOF Toileting : Independent Prior LOF Transfer : Independent Prior LOF Grooming, OT : Independent Prior LOF for IADLs, OT : Independent LEVAR BAJWA OTR/Sis - 08/31/2018 14:34 EST Upper Extremity Right UE [...] SBA, min A for LB dressing using die finisher forging. Pt educated on use AE for LB [...] LEVAR BAJWA OTR/L - 08/31/2018 14:34 EST Tucker OT Charges OT Selfcare/Hm Mgmt Ea 15 Min : 1 OT Eval Low Complexity : 1 LEVAR BAJWA OTR/Sis - 08/31/2018 14:34 EST Electronically signed by Amira [facility] Conversion Cold Meat Cook Cerner at 10/27/2022 8:26 PM CDT documented in this encounter Plan of Treatment Not on file documented as of this encounter Visit Diagnoses Not on filedocumented in this encounter
--- OUTSIDE RECORDS SUMMARY | 2025-05-22 12:09 | XMS_ITS | Encounter Summary ---
Author Organization [employer] ([place], [place], [place], [place], [place]) Address [address] [place] [address] Care Team Providers Care Swine Extension Field Specialist Name Role Phone Unavailable Primary Care Provider Unavailabl e Encounter Details Date Type Department Care Team (Late st Contact Info) Description 08/30/2018 Transcribed Document [facility] [place] [address] [place] [address] ProviderTree MD [address] [place] [address] Social History Tobacco Use Types [...] Tree Alonso MD - 08/30/2018 12:44 PM SUPERVISOR RESIDENTIAL [facility] Main OR IntraOp Summary Primary Physician: BEATRIZ RAWLS MD-ORT Finalized Date/Time: 08/31/18 09:28:34 Pt. Name: PETRA VILLALBA RENETTA /Sex: 1955 Male Med Rec #: [id number] Physician: BEATRIZ RAWLS MD-ORT Financial #: [id number] Pt. Type: O Room/Bed: 648/1 Admit/Disch: 08/30/18 06:24:00 - Institution: [facility] IntraOp Case Attendance Entry 1 Entry 2 Entry 3 Case Attendee BEATRIZ RAWLS MD-ORT KESHEIMER, DAVID K, PA Summers, Jennifer, [employer] Pref Card Builder Role Performed Surgeon/Proceduralist, Physician instruction assistant principal Scrub, First First Time In 08/30/18 12:12:00 [...] Case Attendee Tana Maynard, RN Gabriela Fabian, RN LARRY ADAIR, WATER FABRICATOR OPERATOR Role Performed Administrative Dietitian, First Administrative Dietitian, Second WATER FABRICATOR OPERATOR/Nurse Administrative Support Assoc Time In 08/30/18 12:12:00 08/30/18 12:12:00 08/30/18 [...] ANAHI ALAS MD OTHER, ATTENDEE Grady Tate, WATER FABRICATOR OPERATOR Role Performed Anesthesiologist Vendor WATER FABRICATOR OPERATOR/Nurse Administrative Support Assoc Time In 08/30/18 12:12:00 08/30/18 12:12:00 08/30/18 13:50:00 Time Out 08/30/18 14:50:00 08/30/18 14:50:00 08/30/18 14:50:00 Procedure Knee Total Joint Knee Total Joint Knee Total Joint Replacement(Right) Replacement(Right) Replacement(Right) Other Attendee tamar tan Superficial Wound Closed By: Last Modified By: Tana Maynard, RN Tana Maynard, RN Tana Maynard RN 08/30/18 14:50:09 08/30/18 11:46:42 08/30/18 14:50:09 [facility] IntraOp Case Attendance Audit 08/30/18 14:50:09 Commercial Real Estate Agent: HAMILTGM Modifier: HAMILTGM 1 <+> Time Out [...] Procedure Knee Total Joint Replacement(Right) 08/30/18 14:02:03 Commercial Real Estate Agent: HAMILTGM Modifier: HAMILTGM 1 <+> Time In [...] <+> 9 Time In <+> 9 Procedure [facility] IntraOp Case Times Entry 1 Patient In Room Time 08/30/18 12:12:00 Out Room Time 08/30/18 14:50:00 Anesthesia Start Time 08/30/18 12:12:00 Stop Time 08/30/18 14:50:00 Anesthesia Ready 08/30/18 12:12:00 Surgery / Procedure Times Start Time 08/30/18 12:44:00 Stop Time 08/30/18 14:36:00 Last Modified By: Tana Maynard RN 08/30/18 12:45:24 [facility] IntraOp Case Times Audit 08/30/18 14:50:07 Commercial Real Estate Agent: HAMILTGM Modifier: HAMILTGM <+> 1 Out Room Time <+> 1 Stop Time 08/30/18 14:36:41 Commercial Real Estate Agent: HAMILTGM Modifier: HAMILTGM <+> 1 Stop Time 08/30/18 12:45:28 Commercial Real Estate Agent: HAMILTGM Modifier: HAMILTGM 1 <*> Start Time 08/30/18 12:45:00 [facility] IntraOp Cautery Entry 1 ESU Identification Cautery Type Monopolar ESU ID Number [id number] ID Type Hospital Number Cautery Settings Cut Setting 50 Coag Setting 50 ESU Grounding Pad Ground Pad Type Adult Grounding Pad Site Right Flank Grounding Pad Tana Maynard RN Applied By Grounding Pad Site Warm, dry and intact Skin Condition Before Cautery Grounding Pad Site Unchanged Skin Condition After Cautery Last Modified By: Tana Maynard RN 08/30/18 11:47:37 [facility] IntraOp Communication Entry 1 Entry 2 Entry 3 Communication To Family/Significant other Other Family/Significant other Comment start report close Communication By Gabriela Fabian, Gabriela Ty RN Hamilton, Gina M, RN Date and Time 08/30/18 12:38:00 08/30/18 14:18:00 08/30/18 14:40:00 Last Modified By: Tana Maynard RN Hamilton, Gina M, RN Hamilton, Gina M, RN 08/30/18 12:46:33 08/30/18 14:18:15 08/30/18 14:50:38 [facility] IntraOp Communication Audit 08/30/18 14:50:38 Commercial Real Estate Agent: HAMILTGM Modifier: HAMILTGM <+> 3 Communication By <+> 3 Date and Time <+> 3 Communication To <+> 3 Comment 08/30/18 14:18:15 Commercial Real Estate Agent: HAMILTGM Modifier: HAMILTGM <+> 2 Communication By <+> 2 Date and Time <+> 2 Communication To <+> 2 Comment [facility] IntraOp Counts Verification Entry 1 Entry 2 [...] Performed By Shaneka Oakley Summers, Jennifer, (Scrub) [employer] Pref Card Builder [employer] Pref Card Builder Count Performed By Tana Maynard RN Hull, Tamara, RN (RN) Last Modified By: Tana Maynard RN Hamilton, Gina M, RN 08/30/18 11:47:51 08/30/18 14:11:48 [facility] IntraOp Counts Verification Audit 08/30/18 14:11:48 Commercial Real Estate Agent: HAMILTGM Modifier: HAMILTGM <+> 2 Procedure <+> 2 Count Type <+> 2 Counts Verification Sequence <+> 2 Count Results <+> 2 Count Performed By (Scrub) <+> 2 Count Performed By (RN) [facility] IntraOp Counts Final Entry 1 Procedure Knee Total Joint Replacement(Right) Final Count Info Count Type Sponge, Sharps, Miscellaneous Counts Verification Skin Closure/end of Sequence procedure Count Results Correct, surgeon notified Counts Performed By Count Performed By Shaneka Oakley, (Scrub) [employer] Pref Card Builder Count Performed By Tana Maynard RN (RN) Last Modified By: Tana Maynard RN 08/30/18 11:47:59 [facility] IntraOp Counts Final Audit 08/30/18 14:18:03 Commercial Real Estate Agent: HAMILTGM Modifier: HAMILTGM 1 <*> Procedure Knee Total Joint Replacement(Right) 1 <+> Count Performed By (Scrub) 1 <+> Count Performed By (RN) [facility] IntraOp Cultures and Spec Summary Entry 1 Cultrures and Specimens Specimen Ordered: Yes Specimens Types Pathology Specimen(s) Labeled Pathology and Sent to Last Modified By: Tana Maynard RN 08/30/18 11:48:16 General Comments: a. right knee bone fragments and tissue [facility] IntraOp Departure from OR Entry 1 Integumentary Assessment Integumentary WDL Assessment WDL Transfer/Handoff Transfer to PACU Phase I Handoff Method Phone call Post-op Transport Stretcher/Gurney Via Patient Transport BEATRIZ PEACE PA, Accompanied by LARRY ADAIR CRNA Last Modified By: Tana Maynard RN 08/30/18 11:48:34 [facility] IntraOp Dressing and Packing Entry 1 Type Dressing Location opsite Wound Dressing Item Skin Closure Glue, Joe Supplemental Limb immobilizer Applications Applied By BEATRIZ RAWLS MD-ORT Other Comments aquacel. Last Modified By: Tana Maynard RN 08/30/18 11:49:15 [facility] IntraOp Fire Risk Assessment Entry 1 Fire [...] Modified By: Tana Maynard RN 08/30/18 11:49:27 [facility] IntraOp General Case Smoke Tester 1 Case Information OR OR 04 [facility] Case Level 1 Room Verified Yes Wound Class I - Clean Specialty SN Orthopedic Anesthesia Type General ASA Class 2 Diagnosis Preop Diagnosis oa - right knee Postop Same As Preop No Postop Diagnosis see doctor's post op notes Last Modified By: Tana Maynard RN 08/30/18 12:46:14 [facility] IntraOp General Case Data Audit 08/30/18 12:46:14 Commercial Real Estate Agent: JOCELIN Modifier: OLEGARIOILTGM <+> 1 ASA Class [facility] IntraOp Implant Log Entry 1 Entry 2 Entry 3 Type Implant (Synthetic) Implant (Synthetic) Implant (Synthetic) Implant Log Implant Type Bone Cement Hardware Hardware Tissue Implant Type Implant CEMENT BONE SURG SMPLX TIB CEMENTED STEM SZ F [employer] Identification P [id number] Description Implant Quantity 2 1 1 Implant Site opsite opsite opsite Implant Identification Model Number Implant Identification Serial Number Implant [id number] Identification Lot Number Implant An:[place] Hernandez:Hernandez Us Hernandez:Hernandez Us Identification Orthopaedics Customer Service Analyst Name: Implant [id number] Identification Catalog Number Implant Size Implant Has an Yes Yes Yes Expiration Date Implant Expiration 11/08/20 03/11/28 09/09/23 Date Wasted Radioactive Material Time Implanted Tissue Implant Continue for Tissue Implant Documentation Tissue Identification Number Graft Prep Per Customer Service Analyst Instructions: Tissue Preparation Method: Reconstitution Solution: Reconstitution Solution Lot Number Reconstitution Solution Expiration Date: Thawing Solution Thawing Solution Lot Number Thawing Solution Expiration Date Preparation Materials, Other Preparation Materials, Other Lot Number Preparation Materials, Other Expiration Date Tissue Prepared/Processed By Customer Service Analyst Paperwork Completed Implant Type Comment Last Modified By: Tana Maynard RN Hamilton, Gina M, Tana Avila RN 08/30/18 11:50:26 08/30/18 13:50:14 08/30/18 13:50:14 Entry 4 Entry 5 Type Implant (Synthetic) Implant (Synthetic) Implant Log Implant Type Hardware Hardware Tissue Implant Type Implant IMP KNEE FEM PSN CR CMT PSN ART SURF MC 10 Identification [id number] Description Implant Quantity 1 1 Implant Site opsite opsite Implant Identification Model Number Implant Identification Serial Number Implant [id number] Identification Lot Number Implant Hernandez:Hernandez Us Hernandez:Hernandez Us Identification Customer Service Analyst Name: Implant [id number] Identification Catalog Number Implant Size Implant Has an Yes Yes Expiration Date Implant Expiration 10/10/27 04/10/23 Date Wasted Radioactive Material Time Implanted Tissue Implant Continue for Tissue Implant Documentation Tissue Identification Number Graft Prep Per Customer Service Analyst Instructions: Tissue Preparation Method: Reconstitution Solution: Reconstitution Solution Lot Number Reconstitution Solution Expiration Date: Thawing Solution Thawing Solution Lot Number Thawing Solution Expiration Date Preparation Materials, Other Preparation Materials, Other Lot Number Preparation Materials, Other Expiration Date Tissue Prepared/Processed By Customer Service Analyst Paperwork Completed Implant Type Comment Last Modified By: Tana Maynard RN Hamilton, Gina M, RN 08/30/18 13:50:14 08/30/18 14:04:53 [facility] IntraOp Implant Log Audit 08/30/18 14:04:53 Commercial Real Estate Agent: JOCELIN Modifier: BEVERLYTGM <+> 5 Implant Identification Description <+> 5 Implant Identification Lot Number <+> 5 Implant Identification Customer Service Analyst Name: <+> 5 Implant Expiration Date <+> 5 Implant Site <+> 5 Implant Quantity <+> 5 Implant Identification Catalog Number <+> 5 Implant Type <+> 5 Implant Has an Expiration Date <+> 5 Type 08/30/18 13:50:14 Commercial Real Estate Agent: JOCELIN Modifier: BEVERLYTGM <+> 2 Implant Identification Description <+> 2 Implant Identification Lot Number <+> 2 Implant Identification Customer Service Analyst Name: <+> 2 Implant Expiration Date <+> 2 Implant Site <+> 2 Implant Quantity <+> 2 Implant Identification Catalog Number <+> 2 Implant Type <+> 2 Implant Has an Expiration Date <+> 2 Type <+> 3 Implant Identification Description <+> 3 Implant Identification Lot Number <+> 3 Implant Identification Customer Service Analyst Name: <+> 3 Implant Expiration Date <+> 3 Implant Site <+> 3 Implant Quantity <+> 3 Implant Identification Catalog Number <+> 3 Implant Type <+> 3 Implant Has an Expiration Date <+> 3 Type <+> 4 Implant Identification Description <+> 4 Implant Identification Lot Number <+> 4 Implant Identification Customer Service Analyst Name: <+> 4 Implant Expiration Date <+> 4 Implant Site <+> 4 Implant Quantity <+> 4 Implant Identification Catalog Number <+> 4 Implant Type <+> 4 Implant Has an Expiration Date <+> 4 Type 08/30/18 13:42:36 Commercial Real Estate Agent: JOCELIN Modifier: BEVERLYTGLuis 1 <*> Implant Identification Description CEMENT BONE SURG SMPLX P [id number] <*> Implant Quantity 1 [facility] IntraOp Intraoperative Assessment Entry 1 Handoff Method [...] Modified By: Tana Maynard RN 08/30/18 11:50:42 [facility] IntraOp Intraoperative Equipment Entry 1 Type Equipment [...] Modified By: Tana Maynard RN 08/30/18 11:51:13 [facility] IntraOp Medication Admin Entry 1 Medication/Irrigant NORMAL SALINE Route of irrigation Administration Dose Dose 2000 Unit of Measure ml Volume 50ml betadine added Administered By BEATRIZ RAWLS MD-ORT Procedure Irrigation Last Modified By: Tana Maynard RN 08/30/18 11:51:46 [facility] IntraOp Patient Positioning Entry 1 Procedure Knee [...] Modified By: Tana Maynard RN 08/30/18 11:53:17 [facility] IntraOp Sign In Entry 1 Patient, Site, [...] Modified By: Tana Maynard RN 08/30/18 12:45:43 [facility] IntraOp Sign Out Entry 1 RN Confirmation [...] Modified By: Tana Maynard RN 08/30/18 11:53:41 [facility] IntraOp Sign Out Audit 08/30/18 14:50:17 Commercial Real Estate Agent: HAMILTGM Modifier: HAMILTGM <+> 1 RN Sign Out Signature Date/Time [facility] IntraOp Skin Prep Entry 1 Procedure Knee Total Joint Replacement(Right) Prescribed N/A Pre-Surgical Prep Completed Prep Area right thigh to toes circumferentially Intraop Prep Integumentary WDL Assessment WDL Prep Agents Chloraprep Prep by Tana Maynard RN Hair Removal Methods No hair removal performed Last Modified By: Tana Maynard RN 08/30/18 11:54:06 [facility] IntraOp Surgical Procedures Entry 1 Procedure Knee Total Joint Replacement Modifiers Right Additional RT TOTAL KNEE Procedure ARTHROPLASTY Description Primary Procedure Yes Primary Surgeon BEATRIZ RAWLS MD-ORT Start 08/30/18 12:44:00 Stop 08/30/18 14:36:00 Anesthesia Type General Specialty SN Orthopedic Wound Class I - Clean Last Modified By: Tana Maynard RN 08/30/18 11:54:12 [facility] IntraOp Surgical Procedures Audit 08/30/18 14:36:43 Commercial Real Estate Agent: HAMILTGM Modifier: HAMILTGM <+> 1 Stop 08/30/18 12:46:05 Commercial Real Estate Agent: HAMILTGM Modifier: HAMILTGM <+> 1 Start [facility] IntraOp Temp Regulation Devices Entry 1 Temp Regulation Temperature Warm blankets Regulation Device Temperature Upper body Regulation Site Temperature LARRY ADAIR CRNA Regulation Device Applied by Temperature bairhugger available Regulation Comment Last Modified By: Tana Maynard RN 08/30/18 11:54:34 [facility] IntraOP Time Out Entry 1 Procedure to [...] Modified By: Tana Maynard RN 08/30/18 12:45:54 [facility] IntraOP Time Out Audit 08/30/18 12:45:54 Commercial Real Estate Agent: JOCELIN Modifier: HAMILTGM 1 <+> Time Out Pause Time 1 <*> Procedure to be Performed Knee Total Joint Replacement(Right) [facility] IntraOp Tourniquet Entry 1 Type Pneumatic Serial/Unit Number [id number] Setting 350 mmHg Pheumatic Yes Tourniquet Checked Per Protocol Size 34 inches Placement Thigh, right upper Skin Protection - Yes Padded Under Cuff Applied By BEATRIZ RAWLS MD-ORT Removed By BEATRIZ PEACE PA Times Start Time 08/30/18 12:44:00 Stop Time 08/30/18 14:36:00 Total Time 111 calculated manually (Mins) Last Modified By: Tana Maynard RN 08/30/18 14:36:38 [facility] IntraOp Tourniquet Audit 08/30/18 14:36:38 Commercial Real Estate Agent: OLEGARIOILTGM Modifier: HAMILTGM 1 <*> Setting 300 mmHg 1 <+> Total Time calculated manually (Mins) 1 <+> Stop Time 08/30/18 12:46:04 Commercial Real Estate Agent: OLEGARIOILTGM Modifier: HAMILTGM <+> 1 Start Time Case Comments <None> Finalized By: RUCHI KONG Document Signatures Signed By: Tana Maynard RN 08/30/18 14:50 [email or web address] 08/31/18 09:28 Unfinalized History Date/Time Username Reason for Unfinalizing Freetext Reason for Unfinalizing 08/31/18 09:25 [email or web address] Correct Billing documented in this encounter Plan of Treatment Not on file documented as of this encounter Visit Diagnoses Not on filedocumented in this encounter
--- OUTSIDE RECORDS SUMMARY | 2025-05-22 12:09 | XMS_ITS | Encounter Summary ---
Author Organization [employer] ([place], [place], [place], [place], [place]) Address [address] [place] [address] Care Team Providers Care Shell Mold Bonder Name Role Phone Unavailable Primary Care Provider Unavailabl e Encounter Details Date Type Department Care Team (Late st Contact Info) Description 08/30/2018 Transcribed Document [facility] [facility] [place] [address] ProviderTree MD [facility] [place] [id number] Social History Tobacco Use Types Packs/Day Years [...] Tree Alonso MD - 08/30/2018 2:42 PM CIRCUIT DESIGN ENGINEER DATE OF PROCEDURE:08/30/2018 PREOPERATIVE DIAGNOSIS(ES): Right knee osteonecrosis, medial femoral condyle with degenerative arthritis. POSTOPERATIVE DIAGNOSIS(ES): Right knee osteonecrosis, medial femoral condyle with degenerative arthritis. PROCEDURE: Right total knee replacement. SURGEON: Jakob Kimble MD MECHANICAL FIELD ENGINEER: Jakob Celaya PA-C ANESTHESIA: Regional block with [...]
--- OUTSIDE RECORDS SUMMARY | 2025-05-22 12:09 | XMS_ITS | Encounter Summary ---
Author Organization [facility] Address [address] [id number] Care Team Providers Care Software Engineering Analyst Name Role Phone Parrish Thurman MD Primary Care Provider [phone] Reason for Referral * Medications - Authorized Specialty Diagnoses / Procedures Referred By Halle banuelos Referred To Contact Diagnoses Multiple myeloma not having achieved remission (CMS/HCC) Mohit Villarreal MD [address] [facility] [address] [address] Phone: tel: fax: Referral ID Status Reason Start Date Expiration Date V isits Requested Visits Authorized [id number] Authorized 08/17/2024 11/15/2025 1 1 Encounter Details Date Type Department Care Team (Late st Contact Info) Description 03/27/2025 Refill [facility] Hematology/BMT and Cellular Therapy Program [address] [place] [address] Mohit Villarreal MD [address] [facility] [address] [address] Multiple myeloma not having achieved [...] any time in the past 12 [facility], were you homeless or living [...] drink first t kiet in the morning (EYE-SUMMER CHILD CAREGIVER) to steady your nerves or to get [...] Start Date Job End Date 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 file Not on file Not on file documented as of this encounter Plan of Treatment Upcoming Encounters Date Type Department Care Team (Late st Contact Info) Description 05/28/2025 1:00 PM EST Office Visit Medical Office Building [facility] [address], [address] [place] [address] Afshan Bryan MD [address] [place] [address] documented as of this encounter [...] documented as of this encounter Care Teams Software Engineering Analyst Relationship Specialty Start Date End Date Parrish Thurman MD [address] [place] [address] PCP - General 10/19/24 documented as of this encounter
--- OUTSIDE RECORDS SUMMARY | 2025-05-22 12:09 | XMS_ITS | Encounter Summary ---
Author Organization [employer] ([place], [place], [place], [place], [place]) Address [address] [place] [address] Care Team Providers Care Data Entry Associate Name Role Phone Unavailable Primary Care Provider Unavailabl e Encounter Details Date Type Department Care Team (Late st Contact Info) Description 08/30/2018 Transcribed Document [facility] [place] [facility] [address] ProviderTree MD [facility] [place] [address] Social History Tobacco Use Types [...] - Tree ProviderMD - 08/30/2018 2:59 PM TELEGRAPH REPEATER MECHANIC Evaluation, Physical Therapy Entered On: 08/31/2018 12:38 [...] Treatment Instructions Ordered By: BEATRIZ RAWLS MD-ORT Active Diagnoses : 08/30/2018 00:00 Osteonecrosis, unspecified Admission Date : 08/30/2018 06:24 Co-treated by, PT : Occupational Therapist Personal Devices : Personal Devices No Devices Recorded Assistive Devices : Assistive Devices No Devices Recorded General Information Comment, PT : 62 yo male adm to [facility] 08/30 for adv OA R Knee and [...] to Sit Device : Rails, Other: leg fourth mate Sit to Stand Device : Belt, gait, Walker, front wheel Stand to Sit Device : Belt, gait, Walker, front wheel TEJAL ROBERTS, PT - 08/31/2018 12:08 EST AM [facility] Basic Mobility Turning Over in Bed : Unable Sit Down On/Stand Up From Chair w/ Arms : Unable Move Back Lying to Sitting Side of Bed : Unable Moving To/From a Bed to Chair : A little Need to Walk in Hospital Room : A little Climbing 3-5 Steps with a Railing : A little [facility] Basic Mobility Raw Score : 12 [facility] Basic Mobility Standardized Score : 35.33 [facility] Basic Mobility CMS 0-100% Score : 68.66 % TEJAL ROBERTS, PT - 08/31/2018 12:08 EST Image 1 - Images currently included in the form version of this document have not been included in the text rendition version of the form. Functional Limitation Reporting, PT Functional Limitation Visit Type, PT : Initial evaluation Severity Determination Method, PT : Clinical Judgment, AM [facility] Basic Mobility Mobility [id number] - Current Mod, [...] Stair Training Comment : retro step ascend TEJAL ROBERTS, PT - 08/31/2018 13:04 EST Weight Bearing [...] TEJAL ROBERTS, PT - 08/31/2018 12:08 EST Intermediate Goals Mobility/Bed Mobility LTG PT Grid Goal #1 Goal #2 Activity : Supine to sit Sit to stand Assist : Supervision or set-up Supervision or set-up Equipment : Bed, hospital Walker, front wheel Date to Meet : 09/07/2018 EST 09/07/2018 EST Goal Status : Intial Goal Intial Goal TEJAL ROBERTS, PT - 08/31/2018 12:08 EST TEJAL ROBERTS PT - 08/31/2018 12:08 EST Ambulation LTG Grid Goal #1 Device : Walker, front wheel Distance : 150 ft Assist : Supervision or set-up Date to Meet : 09/07/2018 EST Goal Status : Intial Goal TEJAL ROBERTS PT - 08/31/2018 12:08 EST Stairs LTG Grid Goal #1 Device : Walker, front wheel Number of Steps : 1 Handrail(s) : No handrails Assist : Supervision or set-up Date to Meet : 09/07/2018 EST Goal Status : Intial Goal Comment : retro step TEJAL ROBERTS, PT - 08/31/2018 12:08 EST Treatment Note Subjective Comment : agreed to PTx /OTx evals and treatment Patient's Response to Treatment : good Additional Objective Information : AROM R Knee 10-70 PROM R Knee 0-90 walked 70 ft with POOR gait pattern as pt did not use hip or knee motion to adv R LE did step in retro fashion joint assistant track coach NOT present Assessment : good effort, but struggled with bed mob and gait ROM limited by pain 1st day post op needs review of HEP, gait and stairs Joint COURT DEPUTY needs to be present Plan for Treatment : review gait and HEP in PM along with step WITH JOINT COURT DEPUTY present TEJAL ROBERTS PT - 08/31/2018 12:08 [...] TEJAL ROBERTS, PT - 08/31/2018 12:08 EST [place] PT Charges PT Therap. Exercise 15 min : 2 Gait Training Each 15 Min : 1 PT Eval Low Complexity : 1 TEJAL ROBERTS, PT - 08/31/2018 12:08 EST Electronically signed by Amira, Dev Conversion Finishing Supervisor Plastic Sheets Cerner at 10/27/2022 8:13 PM CDT documented in this encounter Plan of Treatment Not on file documented as of this encounter Visit Diagnoses Not on filedocumented in this encounter
--- OUTSIDE RECORDS SUMMARY | 2025-05-22 12:09 | XMS_ITS | Clinical Summary ---
[facility] Organization [facility] Address [address] [place] [address] Care Team Providers Care Inside Sales Coordinator Name Role Phone Provider, No Known Primary [...] - 2024- season) 03/12/202504/[address] [facility] PPO Care Teams Inside Sales Coordinator Relationship Specialty Start Date End Date Provider, No Known [facility] [place] [address] PCP - General 10/22/20
--- OUTSIDE RECORDS SUMMARY | 2025-05-22 12:09 | XMS_ITS | Encounter Summary ---
Author Organization [employer] ([place], [place], [place], [place], [place]) Address [address] [place] [address] Care Team Providers Care Health Data Administrator Name Role Phone Unavailable Primary Care Provider Unavailabl e Encounter Details Date Type Department Care Team (Late st Contact Info) Description 08/30/2018 Transcribed Document [facility] [place] [address] [place] [address] ProviderTree MD [address] [place], [place] [address] Social History Tobacco Use Types Packs/Day Years Used Date Smoking Tobacco: Never Assessed Sex and Gender Information Value Date Recorded Sex Assigned at Male 01/06/2022 8:27 PM CDT Legal Sex Male 8:27 PM CDT Gender Identity Male 01/06/2022 8:27 PM CDT Sexual Orientation Not on file documented as of this encounter Miscellaneous Notes * Cerner Conversion Note - Tree Alonso MD - 08/30/2018 7:00 AM ANESTHESIOLOGY TEACHER Pain Assessment Entered On: 08/30/2018 15:06 EST Performed On: 08/30/2018 12:35 EST by PAUL PEARSON RN Intervention Information: acetaminophen Performed by PAUL PEARSON RN on 08/30/2018 12:30:00 EST acetaminophen,1000mg IV Piggyback,Left Hand(c) Pain Assessment Pain Assessment : Follow-up assessment Pain Scale Goal : 4 PAUL PEARSON RN - 08/30/2018 15:06 EST Electronically signed by Adalid Collier Conversion Parking Enforcement Specialist Cerner at 10/27/2022 8:14 PM CDT documented in this encounter Plan of Treatment Not on file documented as of this encounter Visit Diagnoses Not on filedocumented in this encounter
--- OUTSIDE RECORDS SUMMARY | 2025-05-22 12:09 | XMS_ITS | Encounter Summary ---
Author Organization [employer] ([place], [place], [place], [place], [place]) Address [address] [place] [address] Care Team Providers Care Manager Real Estate Name Role Phone Unavailable Primary Care Provider Unavailabl e Encounter Details Date Type Department Care Team (Late st Contact Info) Description 08/30/2018 Transcribed Document [facility] [place] [facility] [place] [address] ProviderTree MD [facility] [place] [id number] Social History Tobacco Use Types Packs/Day Years Used Date Smoking Tobacco: Never Assessed Sex and Gender Information Value Date Recorded Sex Assigned at Male 01/06/2022 8:27 PM CDT Legal Sex Male 8:27 PM CDT Gender Identity Male 01/06/2022 8:27 PM CDT Sexual Orientation Not on file documented as of this encounter Miscellaneous Notes * Cerner Conversion Note - Tree Alonso MD - 08/30/2018 6:00 AM WEBBING WEAVER Patient: PETRA VILLALBA Age: 62 years Sex: Male : 1955 Associated Diagnoses: None Author: ISACC ACHARYA APRN Chief Complaint R knee pain Review of [...] Refill(s) fluticasone 50 mcg/inh nasal spray: 1 [place], Nostrils Both, Daily, 0 Refill(s) hydroCHLOROthiazide-triamterene 25 [...] Daily fluticasone 50 mcg/inh nasal spray 1 [place], Nostrils Both, Daily hydroCHLOROthiazide-triamterene 25 mg-37.5 mg [...] All Problems Wears glasses / SNOMED CT 455157638 / Confirmed Sinusitis / SNOMED CT 69286919 / Confirmed Hyperlipidemia / SNOMED CT 20796492 / Confirmed High blood pressure / SNOMED CT 17455681 / Confirmed GERD - Gastro-esophageal reflux disease / SNOMED CT 3269697463 / Confirmed Shortness of breath with exercise / SNOMED CT 087647442 / Confirmed Back pain / SNOMED CT 9836747780 / Confirmed At risk for sleep apnea / IMO 94701275 / Confirmed Asthma / SNOMED CT 517443929 / Confirmed Arthritis / SNOMED CT 4947309 / Confirmed Allergic rhinitis / SNOMED CT 669339197 / Confirmed, Active Problems (11) Allergic rhinitis [...] painful ROM R knee. Integumentary: Warm, Dry, [place]. Neurologic: Alert, Oriented. Psychiatric: Cooperative, Appropriate mood [...]
--- OUTSIDE RECORDS SUMMARY | 2025-05-22 12:09 | XMS_ITS | Encounter Summary ---
Author Organization [employer] ([place], [place], [place], [place], [place]) Address [address] [place] [address] Care Team Providers Care Sewer Name Role Phone Unavailable Primary Care Provider Unavailabl e Encounter Details Date Type Department Care Team (Late st Contact Info) Description 08/30/2018 Transcribed Document [facility] [place] Family Medicine [address] [place] [address] ProviderTree MD [address] [place], [place] [id number] Social History Tobacco Use Types Packs/Day Years [...] Tree Alonso MD - 08/30/2018 12:44 PM STONE POLISHER HAND [facility] Main OR PACU Summary Primary Physician: BEATRIZ RAWLS MD-ORYuko Finalized Date/Time: 08/30/18 18:53:12 Pt. Name: PETRA VILLALBA D.O.B./Sex: 1955 Male Med Rec #: [id number] Physician: BEATRIZ RAWSL MD-ORYuko Financial #: [id number] Pt. Type: O Room/Bed: 648/1 Admit/Disch: 08/30/18 06:24:00 - Institution: [facility] Main OR PACU I Case Times Entry 1 In PACU I 08/30/18 14:52:00 Ready for PACU 08/30/18 15:45:00 Discharge Discharge from PACU 08/30/18 17:53:00 I Last Modified By: PAUL PEARSON RN 08/30/18 17:39:47 [facility] Main OR PACU I Case Times Audit 08/30/18 18:52:48 Field Hockey Coach: NISHA Modifier: NISHA <+> 1 Discharge from PACU I [facility] Main OR PACU Acuity Entry 1 Start Time 08/30/18 15:45:00 Stop Time 08/30/18 17:53:00 Acuity Level [facility] PACU Acuity I Last Modified By: PAUL PEARSON RN 08/30/18 18:52:57 Finalized By: PAUL PEARSON, RN Document Signatures Signed By: PAUL PEARSON RN 08/30/18 18:53 Electronically signed by Amira [facility] Conversion Cotton Sampler Cerner at 10/27/2022 8:25 PM CDT documented in this encounter Plan of Treatment Not on file documented as of this encounter Visit Diagnoses Not on filedocumented in this encounter
--- OUTSIDE RECORDS SUMMARY | 2025-05-22 12:09 | XMS_ITS | Encounter Summary ---
Author Organization [employer] ([place], [place], [place], [place], [place]) Address [address] [place] [address] Care Team Providers Care Grain Merchandising Manager Name Role Phone Unavailable Primary Care Provider Unavailabl e Encounter Details Date Type Department Care Team (Late st Contact Info) Description 08/30/2018 Transcribed Document [facility] [place] [facility] [place] [address] ProviderTree MD [facility] [place], [place] [id number] Social History Tobacco Use Types Packs/Day Years [...] - Tree ProviderMD - 08/30/2018 6:23 AM CARD PROCESSING CLERK Admission History, Adult Entered On: 08/30/2018 18:55 [...] Ambulatory Legal Guardian : Spouse Support Person/Patient Ball Ender : Yes Support Person/Pt Rep Name : Wellington Howell - Support Person/Pt Rep Contact Information : [phone] Want Family/Rep/Phys Notified of Admit : No Emergency Contact #1 : Wellington Lynda Emergency Contact #1 Emergency Contact #1 Relationship : Emergency Contact #2 : na Emergency Contact #2 Phone Number : na Emergency Contact #2 Relationship : na Information Obtained From : Patient Primary Language : Macedonian Preferred Communication Mode : Verbal Communication Barrier [...] Level : 46 or > High Risk [place] Fall Interventions : Adequate lighting, Assistive devices [...] Cessation Medication : Refuses FDA approved medications Xochitl Ba RN - 08/30/2018 18:47 EST Social [...] Source : Measured Height Entry Format : [place] Height, Feet : 5 ft(Converted to: 152 cm, 60 Inch) Height, Inches : 8.5 Inch(Converted to: 0 ft 9 Inch, 21.59 cm) Clinical Height : 173.99 cm Weight Source : Standing scale Weight Entry Format : [place] Clinical Dosing Weight : 101.82 kg Weight, Pounds : 224 lb Weight, Ounces : 0 oz Body Surface Area (BSA) : 2.16 m2 Body Mass Index : 33.6 kg/m2 (HI) [place] Body Weight : 69 kg Xochilt Ba [...] Xochilt Ba RN - 08/30/2018 18:47 EST Electronically signed by Amira [facility] Conversion Hand Bindery Assembly Worker Cerner at 10/27/2022 8:15 PM CDT documented in this encounter Plan of Treatment Not on file documented as of this encounter Visit Diagnoses Not on filedocumented in this encounter
--- OUTSIDE RECORDS SUMMARY | 2025-05-22 12:10 | XMS_ITS | Encounter Summary ---
Author Organization [employer] ([place], [place], [place], [place], [place]) Address [address] [place] [address] Care Team Providers Care Director Market Intelligence Name Role Phone Unavailable Primary Care Provider Unavailabl e Encounter Details Date Type Department Care Team (Late st Contact Info) Description 08/31/2018 Transcribed Document [facility] [place] [facility] [place] [address] ProviderTree MD [address] [place] [address] Social History Tobacco Use Types Packs/Day [...] Tree Alonso MD - 08/31/2018 10:51 AM RUGBY UNION FOOTBALLER [address] [place] [address] Patient Copy Patient Information: Name: PETRA VILLALBA Current Date: 08/31/2018 10:51:42 : 1955 Patient Address: [address] [place] [id number] Patient Attending Physician: BEATRIZ RAWLS MD-ORT Primary Care Provider: BILL VENTURA MD-KATHLEEN Primary Care Provider Discharge Diagnosis: Weight on Admission: 224 lb, 0 oz Comment: Follow-up Instructions: With: Address: When: BEATRIZ RAWLS [address], [place] [id number] [facility] (1) 11:00 AM Discharge Instructions: Diet after [...] nasal (fluticasone 50 mcg/inh nasal spray) 1 [place](s) Nostrils Both Every Day. fluticasone/umeclidinium/vilanterol (Trelegy Ellipta) [...] 10/23/2013 Document Revised: 07/19/2015 Document Reviewed: 06/13/2016 [employer] Interactive Patient Education ? 2017 [employer] Wound Infection Introduction A wound infection [...] instructions at home: Medicines??? Take or apply azkb-mpk-sadzqum and prescription medicines only as told by [...] cannot use soap and water, use hand director plans. ? Change your bandage as told by [...] these instructions at home: Medicines ??? Take lpcy-iom-ftlvcyo and prescription medicines only as told by [...] cannot use soap and water, use hand director plans. ? Change your bandage as told by [...] 09/19/2012 Document Revised: 03/01/2017 Document Reviewed: 06/03/2016 [employer] Interactive Patient Education ? 2017 [employer] Medication Leaflets: tamsulosin (durant angeline FEROZ sin) [...] may report side effects to FDA at 4-542-EMN-3310. What other drugs will affect tamsulosin? Tell [...] may affect tamsulosin. This includes prescription and fwca-rxw-ahrafdt medicines, vitamins, and herbal products. Not all [...] to ensure that the information provided by [employer]. ('[employer]') is accurate, up-to-date, and complete, but no guarantee is made to that effect. Drug information contained herein may be time sensitive. [employer] information has been compiled for use by healthcare practitioners and consumers in the [place] and therefore [employer] does not warrant that uses outside of the [place] are appropriate, unless specifically indicated otherwise. [employer] drug information does not endorse drugs, diagnose patients or recommend therapy. [employer] drug information is an informational resource designed [...] effective or appropriate for any given patient. [employer] does not assume any responsibility for any aspect of healthcare administered with the aid of information [facility] provides. The information contained herein is not intended to cover all possible uses, directions, precautions, warnings, drug interactions, allergic reactions, or adverse effects. If you have questions about the drugs you are taking, check with your doctor, nurse or pharmacist. Copyright 2771-1765 [facility] [employer]. Version: 9.01. Revision Date: 06/06/2018. enoxaparin (ee [...] may report side effects to FDA at 4-847-XHU-5413. What other drugs will affect enoxaparin? Tell [...] drugs may affect enoxaparin, including prescription and rmhd-gqp-ohgqemb medicines, vitamins, and herbal products. Not all [...] to ensure that the information provided by [employer] ('[employer]') is accurate, up-to-date, and complete, but no guarantee is made to that effect. Drug information contained herein may be time sensitive. [employer] information has been compiled for use by healthcare practitioners and consumers in the [place] and therefore [employer] does not warrant that uses outside of the [place] are appropriate, unless specifically indicated otherwise. [employer]'s drug information does not endorse drugs, diagnose patients or recommend therapy. [employer] drug information is an informational resource designed [...] effective or appropriate for any given patient. [facility] does not assume any responsibility for any aspect of healthcare administered with the aid of information [facility] provides. The information contained herein is not intended to cover all possible uses, directions, precautions, warnings, drug interactions, allergic reactions, or adverse effects. If you have questions about the drugs you are taking, check with your doctor, nurse or pharmacist. Copyright 9705-4015 [facility]. Version: 05.12. Revision Date: 10/14/2017. acetaminophen and [...] may report side effects to FDA at 0-360-QBN-2405. What other drugs will affect acetaminophen and [...] affect acetaminophen and oxycodone, including prescription and wtob-uic-pdfwvqa medicines, vitamins, and herbal products. Not all [...] to ensure that the information provided by [employer] ('[employer]') is accurate, up-to-date, and complete, but no guarantee is made to that effect. Drug information contained herein may be time sensitive. [employer] information has been compiled for use by healthcare practitioners and consumers in the [place] and therefore [employer] does not warrant that uses outside of the [place] are appropriate, unless specifically indicated otherwise. [employer] drug information does not endorse drugs, diagnose patients or recommend therapy. [employer] drug information is an informational resource designed [...] effective or appropriate for any given patient. [employer] does not assume any responsibility for any aspect of healthcare administered with the aid of information [employer] provides. The information contained herein is not intended to cover all possible uses, directions, precautions, warnings, drug interactions, allergic reactions, or adverse effects. If you have questions about the drugs you are taking, check with your doctor, nurse or pharmacist. Copyright 4724-6887 [employer]. Version: 18.02. Revision Date: 06/08/2018. CIGARETTE SMOKING: The facts are clear, cigarette smoking will shorten your life. Smoking can cause many illnesses along the way. As a healthcare provider, we recommend that you stop smoking. Assistance with quitting is available by contacting 3-742-OLZY-NOW. This is a free resource providing counseling, [...] Be sure to sign up for the [facility] patient portal, which gives you / access to your medical information ??? including these discharge instructions ??? using your computer, smartphone, or tablet. Just go to [employer] [facility] to get started. Questions? Call . [facility] would like to thank you for allowing us to assist you with your healthcare needs. IDEEJAY BILL RAY, (or mortician supplies sales representative) have received the above patient education materials/instructions and have verbalized understanding: Patient Signature _ Date/Time Patient Delivery Mgr Signature (if needed) Date/Time Clinician/Hospital Delivery Mgr Signature (if needed) Date/Time documented in this encounter Plan of Treatment Not on file documented as of this encounter Visit Diagnoses Not on filedocumented in this encounter
--- OUTSIDE RECORDS SUMMARY | 2025-05-22 12:10 | XMS_ITS | Encounter Summary ---
Author Organization [employer] ([place], [place], [place], [place], [place]) Address [address] [place] [address] Care Team Providers Care Scrap Iron Cutter Name Role Phone Unavailable Primary Care Provider Unavailabl e Encounter Details Date Type Department Care Team (Late st Contact Info) Description 08/31/2018 Transcribed Document [facility] [place] [facility] [place] [address] ProviderTree MD [facility] [place] [id number] Social History Tobacco Use Types Packs/Day Years [...] Tree Alonso MD - 08/31/2018 3:00 PM PRECAST CONCRETE IRONWORKER Orthopedic Nurse Navigator Entered On: 08/31/2018 15:03 EST Performed On: 08/31/2018 15:00 EST by JUAN FRAZIER Rn-Ortho Nurse Navigator Orthopedic Nurse Navigator Assessment Attended Joint Academy : Yes Joint AcademyType : In person Joint Academy Date : 08/19/2018 EST Joint Diesel Engine Inspector Attended Academy : Yes Joint Diesel Engine Inspector Name : Wellington Type of Surgery : Total Knee Replacement, Right Does Patient Have a Walker? : No Walker/toilette Ordered for After Discharge : Yes Anticipated Discharge Plan : Home Health PT Anticipated Discharge Plan Comment : Patient plan set at Joint [employer] to d/c home with the help of his and [facility]. Patient Completed RAPT [...] Rn-Ortho Nurse Navigator - 08/31/2018 15:00 EST Electronically signed by Adalid Collier Conversion Underground Bolting Machine Operator Cerner at 10/27/2022 8:18 PM CDT documented in this encounter Plan of Treatment Not on file documented as of this encounter Visit Diagnoses Not on filedocumented in this encounter
--- OUTSIDE RECORDS SUMMARY | 2025-05-22 12:10 | XMS_ITS | Clinical Summary ---
Author Organization [employer] ([place], [place], [place], [place], [place]) Address [address] [place] [address] Care Team Providers Care Food Service Name Role Phone Unavailable Primary Care Provider [...]
--- OUTSIDE RECORDS SUMMARY | 2025-05-22 12:10 | XMS_ITS | Encounter Summary ---
Author Organization [employer] ([place], [place], [place], [place], [place]) Address [address] [place] [address] Care Team Providers Care Bar And Filler Assembler Name Role Phone Unavailable Primary Care Provider Unavailabl e Encounter Details Date Type Department Care Team (Late st Contact Info) Description 08/31/2018 Transcribed Document [facility] [place] Family Medicine [address] [place] [address] ProviderTree MD [address] [id number] Social History Tobacco Use Types Packs/Day Years Used Date Smoking Tobacco: Never Assessed Sex and Gender Information Value Date Recorded Sex Assigned at Male 01/06/2022 8:27 PM CDT Legal Sex Male 8:27 PM CDT Gender Identity Male 01/06/2022 8:27 PM CDT Sexual Orientation Not on file documented as of this encounter Miscellaneous Notes * Cerner Conversion Note - Tree Alonso MD - 08/31/2018 7:06 AM BIT SETTER Patient: PETRA VILLALBA Age: 62 years Sex: Male : 1955 Associated Diagnoses: None Author: BEATRIZ RAWLS MD-ORT Alert, walked by himself yesterday as PT had gone home. Afeb VS stable distal nvs intact xrays good Hb 15.4 to 14.0 post op stable Plan: walk, dc home Lovenox, percocet 5 RTO 2 weeks Electronically signed by [facility] Conversion Organic Chemist Cerner at 10/27/2022 8:14 PM CDT documented in this encounter Plan of Treatment Not on file documented as of this encounter Visit Diagnoses Not on filedocumented in this encounter
--- OUTSIDE RECORDS SUMMARY | 2025-05-22 12:10 | XMS_ITS | Encounter Summary ---
Author Organization [employer] ([place], [place], [place], [place], [place]) Address [address] [place] [address] Care Team Providers Care Coffee Weigher Name Role Phone Unavailable Primary Care Provider Unavailabl e Encounter Details Date Type Department Care Team (Late st Contact Info) Description 09/02/2018 Transcribed Document [facility] [place] Family Medicine [facility] [place] [address] ProviderTree MD [facility] [place] [id number] Social History Tobacco Use Types Packs/Day Years Used Date Smoking Tobacco: Never Assessed Sex and Gender Information Value Date Recorded Sex Assigned at Male 01/06/2022 8:27 PM CDT Legal Sex Male 8:27 PM CDT Gender Identity Male 01/06/2022 8:27 PM CDT Sexual Orientation Not on file documented as of this encounter Miscellaneous Notes * Cerner Conversion Note - Tree Alonso MD - 09/02/2018 1:30 PM BIODIESEL TECHNOLOGY MANAGER Post Visit Phone Call Entered On: 09/02/2018 13:33 EST Performed On: 09/02/2018 13:30 EST by JUAN FRAZIER Rn-Ortho Nurse Navigator Post Visit Phone Call Post Visit Phone Call History : First call Phone Number : [phone] Contact Relationship to Patient : Spouse Emergency [...] Urology appointment made with Dr. Eugene in [place] on 09/05/18 at 2:15. states understanding. JUAN FRAZIER, Boby-Ortho Nurse Navigator - 09/02/2018 13:30 EST Electronically signed by [facility] Conversion Forepart Reducer Cerner at 10/27/2022 8:06 PM CDT documented in this encounter Plan of Treatment Not on file documented as of this encounter Visit Diagnoses Not on filedocumented in this encounter
--- OUTSIDE RECORDS SUMMARY | 2025-05-22 12:10 | XMS_ITS | Encounter Summary ---
Author Organization [facility] Address [address] [place] [address] Care Team Providers Care Pneumatic Press Hand Name Role Phone Parrish Thurman MD Primary Care Provider + [phone] Reason for Visit * Reason Comments Med Refill Encounter Details Date Type Department Care Team ([facility] st Contact Info) Description 01/06/2025 Refill [facility] [address], [address] [place] [address] Hilario Burger MD [address] [place] [address] Vitamin D deficiency Social History [...] time in the past 12 m [facility], were you homeless or living in [...] drink first t kiet in the morning (EYE-INFO SPECIALIST) to steady your nerves or to get [...] Start Date Job End Date 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 file Not on file Not on file documented as of this encounter Plan of Treatment Upcoming Encounters Date Type Department Care Team (Late st Contact Info) Description 05/28/2025 1:00 PM EST Office Visit Medical Office Building Surgery Spine [facility] [address], [address] [place] [address] Afshan Bryan MD [address] [place] [address] documented as of this encounter [...] documented as of this encounter Care Teams Pneumatic Press Hand Relationship Specialty Start Date End Date Parrish Thurman MD [address] [facility] [address] [place] [address] PCP - General 10/19/24 documented as of this encounter
--- OUTSIDE RECORDS SUMMARY | 2025-05-22 12:10 | XMS_ITS | Encounter Summary ---
Author Organization [facility] ([place], [place], [place], [place], [place]) Address [address] [place] [address] Care Team Providers Care Mortician Investigator Name Role Phone Unavailable Primary Care Provider Unavailabl e Encounter Details Date Type Department Care Team (Late st Contact Info) Description 08/31/2018 Transcribed Document [facility] [place] Family Medicine [address] [place] [address] ProviderTree MD [address] [place] [id number] Social History Tobacco Use Types Packs/Day Years Used Date Smoking Tobacco: Never Assessed Sex and Gender Information Value Date Recorded Sex Assigned at Male 01/06/2022 8:27 PM CDT Legal Sex Male 8:27 PM CDT Gender Identity Male 01/06/2022 8:27 PM CDT Sexual Orientation Not on file documented as of this encounter Miscellaneous Notes * Cerner Conversion Note - Tree Alonso MD - 08/31/2018 7:20 AM IPHONE DEVELOPER Patient: PETRA VILLALBA Age: 62 years Sex: Male : 1955 Associated Diagnoses: None Author: BEATRIZ RAWLS MD-ORT Had trouble urinating, little placed and still in. WIll start on flomax, send home with little and have him see urologist. Electronically signed by Adalid Collier Conversion Consumer Electronic Retail Specialist Katelyn at 10/27/2022 8:08 PM CDT documented in this encounter Plan of Treatment Not on file documented as of this encounter Visit Diagnoses Not on filedocumented in this encounter
--- OUTSIDE RECORDS SUMMARY | 2025-05-22 12:10 | XMS_ITS | Encounter Summary ---
Author Organization [employer] ([place], [place], [place], [place], [place]) Address [address] [place] [address] Care Team Providers Care Pizza Chef Name Role Phone Unavailable Primary Care Provider Unavailabl e Encounter Details Date Type Department Care Team (Late st Contact Info) Description 08/31/2018 Transcribed Document [facility] [place] [address] [place] [address] ProviderTree MD [address] [place] [id number] Social History Tobacco Use Types Packs/Day Years [...] - Tree ProviderMD - 08/31/2018 2:59 PM SALES AND SERVICE ADVISOR Education-Surgery Entered On: 08/31/2018 14:59 EST Performed On: 08/31/2018 14:59 EST by JUAN FRAZIER Rn-Ortho Nurse Navigator Teaching/Learning Assessment Individuals Taught : Patient, Spouse Readiness to Learn : Cooperative Readiness to Learn : Demonstration, Explanation, Video/Educational TV Education Comment : Incentive Spirometry taught at [facility] JUAN FRAZIER Rn-Ortho Nurse Elizaator - 08/31/2018 14:59 EST Education Topics, Periop Preadmission Perioperative Education Grid Incentive Spirometry : Verbalizes understanding JUAN FRAZIER Rn-Ortho Nurse Elizaator - 08/31/2018 14:59 EST documented in this encounter Plan of Treatment Not on file documented as of this encounter Visit Diagnoses Not on filedocumented in this encounter
--- OUTSIDE RECORDS SUMMARY | 2025-05-22 12:10 | XMS_ITS | Encounter Summary ---
Author Organization [employer] ([place], [place], [place], [place], [place]) Address [address] [place] [address] Care Team Providers Care Orchard Manager Name Role Phone Unavailable Primary Care Provider Unavailabl e Encounter Details Date Type Department Care Team (Late st Contact Info) Description 08/31/2018 Transcribed Document [facility] [place] Family Medicine [facility] [place] [address] ProviderTree MD [facility] [place] [place] [id number] Social History Tobacco Use Types Packs/Day Years [...] - Tree ProviderMD - 08/31/2018 12:39 PM PATIENT CARE SECRETARY Treatment Intervention, PT Entered On: 08/31/2018 16:05 [...] Steps with a Railing : A little AM-PAC Basic Mobility Raw Score : 18 AM-PAC Basic Mobility Standardized Score : 43.63 AM-[facility] Basic Mobility CMS 0-100% Score [...] CARLOS CASTILLO, PT - 08/31/2018 15:55 EST [place] Goals Mobility/Bed Mobility LTG PT Grid Goal [...] Patient was independent with TKR HEP. Joint agile coach was present for teaching and states understanding [...] right Pain Improved by : Medication CARLOS CASTILLO, PT - 08/31/2018 15:55 EST Image 1 - Images currently included in the form version of this document have not been included in the text rendition version of the form. Anticipated Discharge Needs, OT/PT Anticipated Discharge to : Home, with family care, Home, with home health Recommend Continued Therapy at Discharge : Yes CARLOS CASTILLO, PT - 08/31/2018 15:55 EST [place] PT Charges PT Therap. Exercise 15 min : 1 Gait Training Each 15 Min : 2 CARLOS CASTILLO PT - 08/31/2018 15:55 EST documented in this encounter Plan of Treatment Not on file documented as of this encounter Visit Diagnoses Not on filedocumented in this encounter
--- OUTSIDE RECORDS SUMMARY | 2025-05-22 12:10 | XMS_ITS | Clinical Summary ---
Author Organization [facility] Address [address] [place] [address] Care Team Providers Care Office Support Name Role Phone Parrish Thurman MD Primary Care Provider + [phone] Allergies Active Allergy Reactions Criticality Noted Date Comments Pollen Extract Cough Low 10/26/2024 Grass and trees environment Medications Fluticasone-Umecl idin-Vilant (Trelegy Ellipta) 100-62.5-25 MCG/ACT aerosol powder Inhale 1 puff in the morning. Active acetaminophen (Tylenol) 500 MG tablet Take 2 tablets by mouth every 6 hours as needed for pain. 100 tablet 10/29/19 25 Active senna-docusate sodium (Senokot-S) 8.6-50 MG tablet Take 1 tablet by mouth 2 (two) times a day. 28 tablet 10/29/19 25 Active oxyCODONE (Roxicodone) 5 MG immediate release tablet Take 1 tablet by mouth every 6 hours as needed for moderate pain or severe pain. 30 tablet 11/07/19 25 Active prochlorperazine (Compazine) 10 MG tabletIndications :Multiple myeloma not having achieved remission (CMS/HCC) Take 1 tablet by mouth every 6 hours as needed for nausea or vomiting. 30 tablet 3 12/01/19 25 Active polyethylene glycol (MiraLax) 17 g packet Take 17 g by mouth daily as needed (constipatio n). 30 each 12/09/19 25 Active naloxone (Narcan) 4 mg/0.1 mL nasal spray 1. Give 1 spray in nostril for no/slow breathing or cannot wake after opioid use 2. Call 911 3. Repeat in other nostril if symptoms continue 1 each 12/30/19 25 Active Calcium Carbonate-Vitamin D (calcium-vitamin D) 500-200 MG-UNIT tabletIndications :Hypocalcemia Take 1 tablet by mouth daily. 30 tablet 11 01/26/20 25 026 Active irbesartan-hydroC HLOROthiazide (Avalide) 150-12.5 MG tablet Take 1 tablet by mouth daily. 02/20/20 25 Active traMADol (Ultram) 50 MG tablet TAKE 1 TABLET BY MOUTH EVERY 8 HOURS NEEDED FOR SEVERE PAIN 60 tablet 03/01/20 25 Active methocarbamol (Robaxin) 500 MG tabletIndications :Degeneration of intervertebral disc of lumbar region with discogenic back pain and lower extremity pain TAKE 1 TABLET BY MOUTH EVERY 6 HOURS NEEDED FOR MUSCLE SPASM 60 tablet 03/01/20 25 Active acyclovir (Zovirax) 400 MG tabletIndications :Multiple myeloma not having achieved remission (CMS/HCC) Take 2 tablets by mouth 2 times a day. 120 tablet 3 03/19/20 25 Active gabapentin (Neurontin) 300 MG capsule Take 1 capsule by mouth nightly. 30 capsule 1 03/22/20 25 Active lenalidomide (Revlimid) 15 MG capsuleIndication s:Multiple myeloma not having achieved remission (CMS/HCC) Take 1 capsule by mouth daily. Take for 14 days, then off 14 days. 28 day cycle. Take whole with water. Do not break, chew, or open. 14 capsule 03/27/20 25 Active potassium chloride CR (Klor-Con M20) 20 MEQ ER tablet TAKE 1 TABLET BY MOUTH TWICE DAILY . SWALLOW WHOLE, DO NOT CRUSH, SPLIT, OR CHEW. 60 tablet 1 05/15/20 25 Active potassium chloride CR (Klor-Con M20) 20 MEQ ER tablet Take 1 tablet by mouth 2 times a day. Do not crush or chew. 60 tablet 1 03/19/20 25 025 Discontinued Active Problems Problem Noted Date Diagnosed Date [...] 11/08/2024 Cancer Staging:Clinical stage from 11/13/2024:RISS Stage III(Hgsl-8-nlsmpmzlndtaf (mg/L): 7.7, Albumin (g/dL): 3.6, ISS: Stage [...] 09/08/2010 Monoclonal gammopathy 10/27/2024 Overview (11/10/2024): IgG [place] Resolved Problems Problem Noted Date Diagnosed Date Resolved Date Chronic obstructive pulmonar y disease with acute lower respiratory infection 01/25/20252024 COPD (chronic obstructive pu lmonary disease) with acute bronchitis 05/13/2016 04/01/2025 Encounters Date Type Department Care Team Description 05/15/2025 Refill [facility] Therapy [facility] [address] [place] [address] Mohit Villarreal MD 04/27/2025 Refill [facility] [address] [place] [address] Mohit Villarreal MD Multiple myeloma not having achieved remission (CMS/HCC) 04/26/2025 Telephone [facility] [address] [place] [address] Victorina Hurt, PharmD 04/18/2025 Telephone [facility] [address] [place] [phone] Mohit Villarreal MD 04/05/2025 2:00 PM EDT - 04/05/2025 11:59 PM EDT Hospital Encounter [facility] [address] [place] [address] Multiple myeloma, remission status unspecified (CMS/HCC) (Primary Dx) Discharge Disposition: Home or Self Care 04/05/2025 Travel 03/27/2025 Orders Only [facility] [address] [place] [phone] Natalie Andrews RN Multiple myeloma, remission status unspecified (CMS/HCC) (Primary Dx) 03/27/2025 Refill [facility] [address] [place] [phone] Mohit Villarreal MD Multiple myeloma not having achieved remission (CMS/HCC) 03/23/2025 Orders Only [facility] [address] [place] [phone] Natalie Andrews RN Multiple myeloma, remission status unspecified (CMS/HCC) (Primary Dx) 03/22/2025 10:28 AM EDT - 03/22/2025 11:59 PM EDT Hospital Encounter [facility] [address] [place] [address] Multiple myeloma, remission status unspecified (CMS/HCC) (Primary Dx) Discharge Disposition: Home or Self Care 03/22/2025 9:00 AM EDT Office Visit [facility] [address] [place] [phone] Mohit Villarreal MD Multiple myeloma, remission status unspecified (CMS/HCC) (Primary Dx); Multiple myeloma not having achieved remission (CMS/HCC); Age-related osteoporosis without current pathological fracture 03/22/2025 8:30 AM EDT Clinical Support [facility] [address] [phone] Ginger Menjivar RN 03/22/2025 Travel 03/21/2025 Orders Only [facility] [address] [phone] Natalie Andrews RN Multiple myeloma not having achieved remission (CMS/HCC) (Primary Dx) 03/19/2025 Refill [facility] [address] [place] [phone] Mohit Villarreal MD Multiple myeloma not having achieved remission (CMS/HCC) 03/19/2025 Telephone [facility] [address] [phone] Mohit Villarreal MD 03/08/2025 2:00 PM EDT - 03/08/2025 11:59 PM EDT Hospital Encounter [facility] [address] [place] [phone] Multiple myeloma, remission status unspecified (CMS/HCC) (Primary Dx) Discharge Disposition: Home or Self Care 03/08/2025 Travel 03/01/2025 Refill [facility] [address] [phone] Bernice Mason APRN Degeneration of intervertebral disc of lumbar region with discogenic back pain and lower extremity pain 03/01/2025 Refill [facility] [address] [phone] Mohit Villarreal MD 02/27/2025 Refill [facility] [address], [address] [place] [phone] Mohit Villarreal MD Multiple myeloma not having achieved remission (CMS/HCC) 02/23/2025 1:40 PM EDT Office Visit Medical Office Building [facility] [address] [facility], [address] [place] [address] Rajiv Garcias MD Thoracic spine pain (Primary Dx) 02/23/2025 1:34 PM EDT - 02/23/2025 11:59 PM EDT Hospital Encounter Medical Office Building Radiology [address] [place] [address] Thoracic spine pain Discharge Disposition: Home or Self Care 02/23/2025 Travel 02/22/2025 12:00 PM EDT - 02/22/2025 11:59 PM EDT Hospital Encounter [facility] [address] [place] [phone] Multiple myeloma, remission status unspecified (CMS/HCC) (Primary Dx) Discharge Disposition: Home or Self Care 02/22/2025 10:30 AM EDT Office Visit [facility]BMT [facility] Cellular Therapy Program [address] [facility], [address] [place] [phone] Bernice Mason APRN Multiple myeloma not having achieved remission (CMS/HCC) (Primary Dx); Encounter for antineoplastic immunotherapy; Encounter for monitoring lenalidomide therapy; Bilateral lower extremity edema 02/22/2025 10:00 AM EDT Clinical Support [facility] Cellular Therapy [facility] [address] [facility], [address] [place] [phone] 02/22/2025 Travel 02/21/2025 Orders Only [facility] Cellular Therapy [facility] [address] [facility], [address] [place] [phone] Mohit Villarreal MD Multiple myeloma, remission status unspecified (CMS/HCC) (Primary Dx) 02/20/2025 Orders Only [facility]MT [facility] Cellular Therapy Program [address] [facility], [address] [place] [phone] Messi Melissa, PharmD from Last 3 Months Immunizations Immunization Administration [...] Asked; Counseling Given: Not Answered Comments:Quit smoking ; 15 pkyrs Alcohol Use [...] time in the past 12 m [facility], were you homeless or living in [...] drink first t kiet in the morning (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 [...] Building [facility] [address], [address] [place] [address] Afshan Bryan MD [address] [facility] [address] [place] [address] Health Maintenance Due Date Last Done Comments [facility]-Bone Density Scan 1955 [facility]-Hepatitis C Screening 1956 [facility]-Medicare Annual Wellness (AWV) 1955 [facility]-Infant/Child/Adol SDOH Screenings 1955 [facility]-Zoster Vaccines (1 of 2) 10/21/1975 CT Colonography 2001 Colonoscopy 2001 FIT-DNA 2001 FIT 2001 FOBT 2001 Sigmoidoscopy 2001 [facility]-Colorectal Cancer Screening 2001 [facility]-Abdominal Aortic Aneurysm (AAA) Screening 2021 [facility]-DTaP,Tdap,and Td Vaccines (2 - Td or Tdap) 08/17/2023 08/17/2013 [id number] Vaccine (6 - season) 2025 06/19/2024, 06/02/2023, 05/14/2022, Additional history [...] Garcias MD Medical Devices Implanted Type Area Electrical And Instrumentation Manager Device Identifier Shelf Expiration Date Model / Serial / Lot Knee Knee Right: Knee Jacinto Viper2 Straight 400mm - [id number] Implanted:Qty: 1 on 09/14/2024 by Rajiv Garcias MD at [facility] Jacinto N/A: Spine Thoracic [employer]-[id number] 09/15/2024 [id number] / / Chip Bone 20cc - [id number] - [id number] Implanted:Qty: 1 on 09/14/2024 by Rajiv Garcias MD at [facility] N/A: Spine Thoracic [facility]-[id number] 05/25/2029 PCAN1/4 / [id number] / [id number] Matrix Fibergraft Bg Lg 12.5cc - [id number] Implanted:Qty: 1 on 09/14/2024 by Rajiv Garcias MD at [facility] N/A: Spine Thoracic [employer] LP-[id number] 12/16/2026 [id number] / / [id number] Screw 5.5mm Expedium Verse Fen 5mm X 35mm - [id number] Implanted:Qty: 2 on 09/14/2024 by Rajiv Garcias MD at [facility] N/A: Spine Thoracic [employer] LP-380585 09/15/[id number] / / Screw 5.5mm Expedium Verse Fen 5mm X 40mm - [id number] Implanted:Qty: 2 on 09/14/2024 by Rajiv Garcias MD at [facility] N/A: Spine Thoracic [employer] LP-[id number] 09/15/[id number] / / Screw 5.5mm Expedium Verse Fen 5mm X 45mm - [id number] Implanted:Qty: 2 on 09/14/2024 by Rajiv Garcias MD at [facility] N/A: Spine Thoracic [employer] LP-[id number] 09/15/[id number] / / Screw 5.5mm Expedium Verse Fen 6mm X 45mm - [id number] Implanted:Qty: 2 on 09/14/2024 by Rajiv Garcias MD at [facility] N/A: Spine Thoracic [employer] LP-232481 09/14/[id number] / / Screw Set 5.5mm Expedium Verse Unitized - [id number] Implanted:Qty: 8 on 09/14/2024 by Rajiv Garcias MD at [facility] N/A: Spine Lumbar [employer] LP-[id number] 09/14/[id number] / / Matrix Fibergraft Bg Medium 6.25cc - [id number] Implanted:Qty: 1 on 10/25/2024 by Rajiv Garcias MD at [facility] Spine Lumbar [employer] LP-[id number] 05/25/2027 [id number] / / [id number] Kit Confidence Spinal Cement System Plus 11cc - [id number] Implanted:Qty: 1 on 10/25/2024 by Rajiv Garcias MD at [facility] N/A: Spine Lumbar [employer] LP-[id number] 05/11/2026 [id number] / / [id number] Screw 5.5mm Expedium Verse Fen 6mm X 45mm - [id number] Implanted:Qty: 4 on 10/25/2024 by Rajiv Garcias MD at [facility] N/A: Spine Lumbar [employer] LP-[id number] 10/25/2025 [id number] / / Screw Set 5.5mm Expedium Verse Unitized - [id number] Implanted:Qty: 10 on 10/25/2024 by Rajiv Garcias MD at [facility] N/A: Spine Lumbar [employer] LP-[id number] 10/25/2025 [id number] / / Jacinto Viper2 Straight 480mm - [id number] Implanted:Qty: 1 on 10/25/2024 by Rajiv Garcias MD at [facility] N/A: Spine Lumbar [employer] LP-808025 10/25/2025 [id number] / / Chip Bone 40cc - [id number] - [id number] Implanted:Qty: 1 on 10/25/2024 by Rajiv Garcias MD at [facility] Spine Lumbar [facility]-855661 08/24/2029 PCAN1/2 / [id number] / [id number] Procedures Procedure Name Priority Date/Time Associated Diagnosis Comments CBC WITH AUTO DIFFERENTIAL Routine 04/05/2025 2:20 PM EDT Multiple myeloma, remission status unspecified (CMS/HCC) PROTEIN ELECTROPHORESIS, PATHOLOGIST INTERPRETATION Routine 03/22/2025 [...] achieved remission (CMS/HCC) from Last 3 Months Results * (ABNORMAL) CBC and differential (04/05/2025 2:20 PM EDT) Only the most recent of4 resultswithin the time period is included. WBC Count 4.72 3.70 - 10.30 10*3/uL LAB HEMATOLOGY METHOD 04/05/2025 4:07 PM EDT [facility] RBC Count 3.80(L) 4.60 - 6.10 10*6/uL LAB HEMATOLOGY METHOD 04/05/2025 4:07 PM EDT [facility] HGB 10.8(L) 13.7 - 17.5 g/dL LAB HEMATOLOGY METHOD 04/05/2025 4:07 PM EDT [facility] HCT 33.6(L) 40.0 - 51.0 % LAB HEMATOLOGY METHOD 04/05/2025 4:07 PM EDT [facility] Platelet Count 182 155 - 369 10*3/uL LAB HEMATOLOGY METHOD 04/05/2025 4:07 PM EDT [facility] MCV 88 79 - 98 fL LAB HEMATOLOGY METHOD 04/05/2025 4:07 PM EDT [facility] MCH 28.4 26.0 - 32.0 pg LAB HEMATOLOGY METHOD 04/05/2025 4:07 PM EDT [facility] MCHC 32.1 30.7 - 35.5 g/dL LAB HEMATOLOGY METHOD 04/05/2025 4:07 PM EDT [facility] RDW 18.9(H) 11.5 - 14.5 % LAB HEMATOLOGY METHOD 04/05/2025 4:07 PM EDT [facility] MPV 11.7 8.8 - 12.5 fL LAB HEMATOLOGY METHOD 04/05/2025 4:07 PM EDT [facility] nRBC 0.0 <=0.0 per 100 WBCs LAB HEMATOLOGY METHOD 04/05/2025 4:07 PM EDT [facility] Differential Type Automated LAB HEMATOLOGY METHOD 04/05/2025 4:07 PM EDT [facility] Neutrophils % 32 % LAB HEMATOLOGY METHOD 04/05/2025 4:07 PM EDT [facility] Lymphocytes % 31 % LAB HEMATOLOGY METHOD 04/05/2025 4:07 PM EDT [facility] Monocytes % 29 % LAB HEMATOLOGY METHOD 04/05/2025 4:07 PM EDT [facility] Eosinophils % 6 % LAB HEMATOLOGY METHOD 04/05/2025 4:07 PM EDT [facility] Basophils % 2 % LAB HEMATOLOGY METHOD 04/05/2025 4:07 PM EDT [facility] Immature Granulocytes % 0 % LAB HEMATOLOGY METHOD 04/05/2025 4:07 PM EDT [facility] Neutrophils Absolute 1.50(L) 1.60 - 6.10 10*3/uL LAB HEMATOLOGY METHOD 04/05/2025 4:07 PM EDT [facility] Lymphocytes Absolute 1.48 1.20 - 3.90 10*3/uL LAB HEMATOLOGY METHOD 04/05/2025 4:07 PM EDT [facility] Monocytes Absolute 1.37(H) 0.30 - 0.90 10*3/uL LAB HEMATOLOGY METHOD 04/05/2025 4:07 PM EDT [facility] Eosinophils Absolute 0.29 0.00 - 0.50 10*3/uL LAB HEMATOLOGY METHOD 04/05/2025 4:07 PM EDT [facility] Basophils Absolute 0.07 0.00 - 0.10 10*3/uL LAB HEMATOLOGY METHOD 04/05/2025 4:07 PM EDT [facility] Immature Granulocytes Absolute 0.01 0.00 - 0.06 10*3/uL LAB HEMATOLOGY METHOD 04/05/2025 4:07 PM EDT [facility] Blood Venous blood specimen / Unknown Venipuncture / Unknown 04/05/2025 2:20 PM EDT 04/05/2025 2:45 PM EDT Narrative [facility] - 04/05/2025 4:07 PM EDT Therapeutic decision making should be based on absolute values, rather than percentages. us Mohit Villarreal MD LAB BLOOD ORDERABLES Final Result [facility] [address] [place] [address] * (ABNORMAL) [place] Lambda Quant Free Light Chains w/Ratio (03/22/2025 9:18 AM EDT) Only the most recent of2 resultswithin the time period is included. [place] Lambda Free Light Chain Ratio 42.24(H) 0.26 - 1.65 Ratio 03/24/2025 1:36 AM EDT [facility] [place] Quant Free Light Chains 431.70(H) 3.30 - 19.40 mg/L 03/24/2025 1:36 AM EDT [facility] Lambda Quant Free Light Chains 10.22 5.71 - 26.30 mg/L 03/24/2025 1:36 AM EDT [facility] Blood Venous blood specimen / Unknown Venipuncture / Unknown 03/22/2025 9:18 AM EDT 03/22/2025 9:36 AM EDT Narrative [facility] - 03/24/2025 1:36 AM EDT [...] laboratory. Test performed at [facility],Special Chemistry Laboratory. Mohit Villarreal MD LAB BLOOD ORDERABLES Final Result Performing Organization Address City/[facility] Co de Phone Number [facility] [address] [place] [address] * (ABNORMAL) Total Protein, Serum (03/22/2025 9:18 AM EDT) Only the most recent of2 resultswithin the time period is included. [facility] Signature Total Protein 5.8(L) 6.2 - 7.7 g/dL 03/22/2025 10:19 AM EDT [facility] Blood Venous blood specimen / Unknown Venipuncture / Unknown 03/22/2025 9:18 AM EDT 03/22/2025 9:36 AM EDT Mohit Villarreal MD LAB BLOOD ORDERABLES Final Result Performing Organization Address City/[facility] [place] [address] * (ABNORMAL) Protein Electrophoresis, Serum (03/22/2025 9:18 AM EDT) Only the most recent of2 resultswithin the time period is included. Albumin Electrophoresis, Serum 3.6 3.6 - 4.7 g/dL 03/23/2025 1:46 AM EDT [facility] Alpha 1 Globulin Electrophoresis, Serum 0.3 0.2 - 0.4 g/dL 03/23/2025 1:46 AM EDT [facility] Alpha 2 Globulin Electrophoresis, Serum 0.7 0.5 - 0.9 g/dL 03/23/2025 1:46 AM EDT [facility] Beta 1 Globulin Electrophoresis, Serum 0.4 0.3 - 0.5 g/dL 03/23/2025 1:46 AM EDT [facility] Beta 2 Globulin Electrophoresis, Serum 0.3 0.2 - 0.5 g/dL 03/23/2025 1:46 AM EDT [facility] Gamma Globulin Electrophoresis, Serum 0.4(L) 0.6 - 1.5 g/dL 03/23/2025 1:46 AM EDT [facility] Interpretation, Serum Protein Electrophoresis Pathology report to follow. 03/23/2025 1:46 AM EDT [facility] Blood Venous blood specimen / Unknown Venipuncture / Unknown 03/22/2025 9:18 AM EDT 03/22/2025 9:37 AM EDT us Mohit Villarreal MD LAB BLOOD ORDERABLES Final Result Performing Organization Address [facility] Co de Phone Number [address] [address] * Protein electrophoresis serum, pathologist interpretation (03/22/2025 9:18 AM EDT) Only the most recent of2 resultswithin the time period is included. 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 A resident was involved in the service. I attest I examined the relevant preparations for the specimens and confirmed the diagnosis or interpretation. 03/23/2025 12:18 PM EDT [facility] Pathologist Signature, SPEP Reviewed by: Carol Miguel MD 03/23/2025 12:18 PM EDT [facility] LAB CP ASR DISCLAIMER Yes 03/23/2025 12:18 PM EDT [facility] Blood Venous blood specimen / Unknown Venipuncture / Unknown 03/22/2025 9:18 AM EDT 03/22/2025 9:37 AM EDT us Mohit Villarreal MD LAB PATHOLOGY ORDERABLES Fi nal Result Performing Organization Address City/[facility]/ZIP Co de Phone Number [facility] [address] [place] [address] [place] [address] * (ABNORMAL) IG Profile (03/22/2025 9:18 AM EDT) IGA 43(L) 75 - 400 mg/dL 03/22/2025 10:42 AM EDT [facility] IGG 508(L) 720 - 1,589 mg/dL 03/22/2025 10:42 AM EDT [facility] IGM 14(L) 35 - 225 mg/dL 03/22/2025 10:42 AM EDT [facility] Blood Venous blood specimen / Unknown Venipuncture / Unknown 03/22/2025 9:18 AM EDT 03/22/2025 9:36 AM EDT us Mohit Villarreal MD LAB BLOOD ORDERABLES Final Result [facility] [address] [place] [address] * (ABNORMAL) Comprehensive metabolic panel (03/22/2025 9:18 AM EDT) Only the most recent of2 resultswithin the time period is included. Pathologist [facility] Glucose, Plasma 112(H) 74 - 99 mg/dL 03/22/2025 10:25 AM EDT [facility] BUN, Plasma 14 8 - 23 mg/dL 03/22/2025 10:25 AM EDT [facility] Creatinine, Plasma 1.01 0.70 - 1.20 mg/dL 03/22/2025 10:25 AM EDT [facility] BUN/Creatinine Ratio 14 03/22/2025 10:25 AM EDT [facility] Sodium, Plasma 143 136 - 145 mmol/L 03/22/2025 10:25 AM EDT [facility] Potassium, Plasma 3.7 3.6 - 4.9 mmol/L 03/22/2025 10:25 AM EDT [facility] Chloride, Plasma 108(H) 97 - 107 mmol/L 03/22/2025 10:25 AM EDT [facility] CO2, Plasma 20(L) 22 - 29 mmol/L 03/22/2025 10:25 AM EDT [facility] Anion Gap 15 6 - 16 mmol/L 03/22/2025 10:25 AM EDT [facility] Total Calcium, Plasma 9.2 8.9 - 10.2 mg/dL 03/22/2025 10:25 AM EDT [facility] Total Protein 6.2(L) 6.3 - 7.9 g/dL 03/22/2025 10:25 AM EDT [facility] Albumin, Plasma 3.9 3.5 - 5.2 g/dL 03/22/2025 10:25 AM EDT [facility] AST, Plasma 25 10 - 50 U/L 03/22/2025 10:25 AM EDT [facility] ALT, Plasma 19 10 - 50 U/L 03/22/2025 10:25 AM EDT [facility] Alkaline Phosphatase, Plasma 90 40 - 115 U/L 03/22/2025 10:25 AM EDT [facility] Total Bilirubin, Plasma 0.7 0.2 - 1.1 mg/dL 03/22/2025 10:25 AM EDT [facility] eGFRcr 81.0 mL/min/1.7 3m*2 03/22/2025 10:25 AM EDT [facility] Comment:Reported eGFRcr in m L/min/1.73m2 is based the CKD-EPI 2020 equation that does not use a race coefficient. Blood Venous blood specimen / Unknown Venipuncture / Unknown 03/22/2025 9:18 AM EDT 03/22/2025 9:36 AM EDT us Mohit Villarreal MD LAB BLOOD ORDERABLES Final Result [facility] [address] [place] [address] * XR Thoracic Spine 2 Views (02/23/2025 [...] (ABNORMAL) QIG, Serum (02/22/2025 10:20 AM EDT) IGA 51(L) 75 - 400 mg/dL 02/22/2025 11:32 AM EDT [facility] IGG 544(L) 720 - 1,589 mg/dL 02/22/2025 11:32 AM EDT [facility] IGM 18(L) 35 - 225 mg/dL 02/22/2025 11:32 AM EDT [facility] Blood Venous blood specimen / Unknown Venipuncture / Unknown 02/22/2025 10:20 AM EDT 02/22/2025 10:42 AM EDT Bernicekeira Mason KOHINOOR OPERATOR LAB BLOOD ORDERABLES Malena l Result Performing Organization Address [facility]/ZIP Co de Phone Number [facility] [address] [place] [address] * Immunofixation Electrophoresis (02/22/2025 10:20 AM EDT) Immunofixation Interpretation Pathology report to follow. 02/26/2025 2:43 PM EDT [facility] Blood Venous blood specimen / Unknown Venipuncture / Unknown 02/22/2025 10:20 AM EDT 02/22/2025 10:42 AM EDT [facility] [place] KOHINOOR OPERATOR LAB BLOOD ORDERABLES Malena l Result Performing Organization Address [facility] de Phone Number [facility] [address] [place] [address] * ANGEL serum, pathologist interpretation (02/22/2025 10:20 AM EDT) Pathologist [facility] Clinical Diagnosis, ANGEL Serum IgG [place] Multiple Myeloma 02/27/2025 11:09 AM EDT [facility] Interpretation , ANGEL Serum There are [...] diagnosis or interpretation. 02/27/2025 11:09 AM EDT [facility] Pathologist Signature, ANGEL Serum Reviewed by: Tim Becerra MD 02/27/2025 11:09 AM EDT [facility] CP ASR DISCLAIMER Yes 02/27/2025 11:09 AM EDT [facility] Blood Venous blood specimen / Unknown Venipuncture / Unknown 02/22/2025 10:20 AM EDT 02/22/2025 10:42 AM EDT Bernice Mason KOHINOOR OPERATOR LAB PATHOLOGY ORDERABLES Final Result [facility] [address] [place] [address] from Last 3 Months Additional Health Concerns Active Problems Noted Date Diagnosed Date Autogenerated Problem 10/19/2024 Insurance [facility] MEDICARE Advance Directives * Full Code (Latest [...] Patient has decision-making capacity? Yes Care Teams Office Support Relationship Specialty Start Date End Date Parrish Thurman MD [address] [facility] [address] [place] [address] PCP - General 10/19/24
--- OUTSIDE RECORDS SUMMARY | 2025-05-22 12:10 | XMS_ITS | Encounter Summary ---
Author Organization [employer] ([place], [place], [place], [place], [place]) Address [address] [place] [address] Care Team Providers Care Champagne Maker Name Role Phone Unavailable Primary Care Provider Unavailabl e Encounter Details Date Type Department Care Team (Late st Contact Info) Description 08/31/2018 Transcribed Document [facility] [place] [address] [place] [address] ProviderTree MD [address] [place] [address] Social History Tobacco Use Types [...] - Tree ProviderMD - 08/31/2018 1:39 PM MEDICAL DIRECTOR/HEAD TEAM PHYSICIAN Care Management Assessment/Plan Entered On: 08/31/2018 13:46 EST Performed On: 08/31/2018 13:39 EST by Christina Meyers RN Care Management Note Care Management Note : Pt had f/c placed for urinary retention and needs f/u appt with Uro in 5 days. Called [facility] ([phone]) to schedule appt, but MD needs referral and clinicals faxed and then they will call pt with appt. Faxed everything needed and informed pt and spouse. Pt will dc home on Lovenox for DVT prophylaxis. Faxed script for Lovenox to [facility] in [place], they have enough in stock and pt's co-pay is $10. Pt and spouse agree to pay this. Care Management Note Report : Christina Meyers RN - 08/31/18 11:28:36 [id number] Documentation Status Complete : Yes Christina Meyers RN - 08/31/2018 13:39 EST Electronically signed by Amira [facility] Conversion Technology Auditor Cerner at 10/27/2022 8:13 PM CDT documented in this encounter Plan of Treatment Not on file documented as of this encounter Visit Diagnoses Not on filedocumented in this encounter
--- OUTSIDE RECORDS SUMMARY | 2025-05-22 12:10 | XMS_ITS | Encounter Summary ---
Author Organization Healthcare Address [address] [id number] Care Team Providers Care Beauty Operator Apprentice Name Role Phone Parrish Thurman MD Primary Care Provider + [phone] Reason for Visit * Reason Comments Med Refill Encounter Details Date Type Department Care Team ([facility] st Contact Info) Description 04/27/2025 Refill [facility] Hematology/BMT and Cellular Therapy Program [address] [address] Mohit Villarreal MD [address] [facility] [address] [place] [address] Multiple myeloma not having achieved remission (CMS/HCC) [...] time in the past 12 m [facility], were you homeless or living in a [...] drink first t kiet in the morning (EYE-MOVIE ACTOR) to steady your nerves or to get [...] Start Date Job End Date 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 file Not on file Not on file documented as of this encounter Plan of Treatment Upcoming Encounters Date Type Department Care Team (Late st Contact Info) Description 05/28/2025 1:00 PM EST Office Visit Medical Office [facility] [address], [address] [place] [address] Afshan Bryan MD [address] [place] [address] documented as of this encounter [...] documented as of this encounter Care Teams Beauty Operator Apprentice Relationship Specialty Start Date End Date Parrish Thurman MD [address] [facility] [address] [place] [address] PCP - General 10/19/24 documented as of this encounter
--- OUTSIDE RECORDS SUMMARY | 2025-05-22 12:10 | XMS_ITS | Encounter Summary ---
Author Organization [employer] ([place], [place], [place], [place], [place]) Address [address] [place] [address] Care Team Providers Care Senior Front End Engineer Name Role Phone Unavailable Primary Care Provider Unavailabl e Encounter Details Date Type Department Care Team (Late st Contact Info) Description 08/31/2018 Transcribed Document [facility] [place] [facility] [place] [address] Tree Alonso MD [address] [place], [place] [id number] Social History Tobacco Use Types Packs/Day Years [...] Tree Alonso MD - 08/31/2018 2:47 PM SEALER SANDER Patient Education Materials Follows:Disease Wound Infection Introduction [...] instructions at home: Medicines??? Take or apply afef-lmi-nybcchn and prescription medicines only as told by [...] cannot use soap and water, use hand distillery worker. ? Change your bandage as told by [...] these instructions at home: Medicines ??? Take xbvf-itc-wptgxed and prescription medicines only as told by [...] cannot use soap and water, use hand distillery worker. ? Change your bandage as told by [...] 09/19/2012 Document Revised: 03/01/2017 Document Reviewed: 06/03/2016 [employer] Interactive Patient Education ? 2017 [employer] Urology Plascencia Catheter Care, Adult A [...] 10/23/2013 Document Revised: 07/19/2015 Document Reviewed: 06/13/2016 ElseBuyosphere Interactive Patient Education ? 2017 [employer] documented in this encounter Plan of Treatment Not on file documented as of this encounter Visit Diagnoses Not on filedocumented in this encounter
--- OUTSIDE RECORDS SUMMARY | 2025-05-22 12:10 | XMS_ITS | Encounter Summary ---
Author Organization [employer] ([place], [place], [place], [place], [place]) Address [address] [place] [address] Care Team Providers Care Overlock Operator Name Role Phone Unavailable Primary Care Provider Unavailabl e Encounter Details Date Type Department Care Team (Late st Contact Info) Description 08/31/2018 Transcribed Document [facility] [place] Family Medicine [facility] [place] [address] ProviderTree MD [address] [place], [place] [id number] Social History Tobacco Use Types Packs/Day Years Used Date Smoking Tobacco: Never Assessed Sex and Gender Information Value Date Recorded Sex Assigned at Male 01/06/2022 8:27 PM CDT Legal Sex Male 8:27 PM CDT Gender Identity Male 01/06/2022 8:27 PM CDT Sexual Orientation Not on file documented as of this encounter Miscellaneous Notes * Cerner Conversion Note - Tree ProviderMD - 08/31/2018 4:06 PM TENTERING MACHINE OFF BEARER Discharge Summary, PT Entered On: 08/31/2018 16:07 [...] CARLOS CASTILLO, PT - 08/31/2018 16:06 EST Half-Way Goals Mobility/Bed Mobility LTG PT [...] CARLOS CASTILLO, PT - 08/31/2018 16:06 EST documented in this encounter Plan of Treatment Not on file documented as of this encounter Visit Diagnoses Not on filedocumented in this encounter
--- OUTSIDE RECORDS SUMMARY | 2025-05-22 12:10 | XMS_ITS | Encounter Summary ---
Author Organization [employer] ([place], [place], [place], [place], [place]) Address [address] [place] [address] Care Team Providers Care Agile Qa Tester Name Role Phone Unavailable Primary Care Provider Unavailabl e Encounter Details Date Type Department Care Team (Late st Contact Info) Description 08/31/2018 Transcribed Document [facility] [place] Family Medicine [address] [place] [address] ProviderTree MD [facility] [place] [address] Social History Tobacco Use Types [...] - Tree ProviderMD - 08/31/2018 10:44 AM PRINTING PRESSMAN Nursing Discharge Summary Entered On: 08/31/2018 10:44 [...] Questions Given : Patient, Spouse, Other: joint project coach Patient Education Completed : Yes Teaching Method : Explanation, Printed materials Teaching Evaluation : Needs further teaching Xochilt Ba RN - 08/31/2018 10:44 EST Electronically signed by Amira [facility] Conversion Police Magistrate Cerner at 10/27/2022 8:20 PM CDT documented in this encounter Plan of Treatment Not on file documented as of this encounter Visit Diagnoses Not on filedocumented in this encounter
--- OUTSIDE RECORDS SUMMARY | 2025-05-22 12:10 | XMS_ITS | Encounter Summary ---
Author Organization [employer] ([place], [place], [place], [place], [place]) Address [address] [place] [address] Care Team Providers Care Printing Supplies Sales Representative Name Role Phone Unavailable Primary Care Provider Unavailabl e Encounter Details Date Type Department Care Team (Late st Contact Info) Description 08/19/2018 Transcribed Document [facility] [place] Medicine [facility] [place] [address] ProviderTree MD [address] [place] [address] Social History Tobacco Use Types Packs/Day Years Used Date Smoking Tobacco: Never Assessed Sex and Gender Information Value Date Recorded Sex Assigned at Male 01/06/2022 8:27 PM CDT Legal Sex Male 8:27 PM CDT Gender Identity Male 01/06/2022 8:27 PM CDT Sexual Orientation Not on file documented as of this encounter Miscellaneous Notes * Cerner Conversion Note - Tree ProviderMD - 08/19/2018 2:34 PM TOOL/DIE MAKER PAT Adult Entered On: 08/19/2018 14:46 EST Performed On: 08/19/2018 14:34 EST by HIRAL MONTOYA RN Height and Weight, Clinical Dosing Height Source : Measured Height Entry Format : Coffeen Height, Feet : 5 ft(Converted to: 152 cm, 60 Inch) Height, Inches : 8.5 Inch(Converted to: 0 ft 9 Inch, 21.59 cm) Clinical Height : 173.99 cm Weight Source : Standing scale Weight Entry Format : Coffeen Clinical Dosing Weight : 101.82 kg Weight, Pounds : 224 lb Weight, Ounces : 0 oz Body Surface Area (BSA) : 2.16 m2 Body Mass Index : 33.6 kg/m2 (HI) Britt Body Weight : 69 kg HIRAL MONTOYA [...] (Last Updated: 08/19/2018 14:37:33 EST by HIRAL MONTOYA, TEZ) Alcohol: Alcohol Use Frequency Rarely. (Last Updated: 08/19/2018 14:37:43 EST by HIRAL MONTOYA RN) Substance Abuse: Drug Use Hx: No. Use in Last 12 Months: No. (Last Updated: 08/19/2018 14:37:49 EST by HIRAL MONTOYA, RN) Home/Environment: Lives with Spouse. Living situation: Home/Independent. (Last Updated: 08/19/2018 14:39:03 EST by HIRAL MONTOYA RN) Employment/School: Employed (Last Updated: 08/19/2018 14:39:10 EST by HIRAL MONTOYA RN) Infectious Disease History Infectious Disease History : [...] Ambulatory Legal Guardian : Spouse Support Person/Patient Shrimping Boat Captain : Yes Support Person/Pt Rep Name : Wellington Howell - Support Person/Pt Rep Contact Information : [phone] Want Family/Rep/Phys Notified of Admit : No Emergency Contact #1 : Wellington Howell Emergency Contact #1 Emergency Contact #1 Relationship : Emergency Contact #2 : na Emergency Contact #2 Phone Number : na Emergency Contact #2 Relationship : na Information Obtained From : Patient Primary Language : Kittitian Preferred Communication Mode : Verbal Communication Barrier [...] 08/19/2018 14:34 EST Electronically signed by Amira, [facility] Conversion Sterile Products Processor Cerner at 10/27/2022 8:04 PM CDT documented in this encounter Plan of Treatment Not on file documented as of this encounter Visit Diagnoses Not on filedocumented in this encounter
--- OUTSIDE RECORDS SUMMARY | 2025-05-22 12:10 | XMS_ITS | Encounter Summary ---
Author Organization [employer] ([place], [place], [place], [place], [place]) Address [address] [place] [address] Care Team Providers Care Residential Subcontractor Name Role Phone Unavailable Primary Care Provider Unavailabl e Encounter Details Date Type Department Care Team (Late st Contact Info) Description 08/31/2018 Transcribed Document [facility] [place] [facility] [place] [address] ProviderTree MD [address] [place] [address] Social History Tobacco Use Types Packs/Day [...] Tree Alonso MD - 08/31/2018 2:47 PM ICT SYSTEMS TEST ENGINEER [address] [place] [address] Patient Copy Patient Information: Name: PETRA VILLALBA Current Date: 08/31/2018 14:47:08 : 1955 Patient Address: [address] [place] [phone] Patient Attending Physician: BEATRIZ RAWLS MD-ORT Primary Care Provider: BILL VENTURA MD-KATHLEEN Primary Care Provider Discharge Diagnosis: Weight on Admission: 224 lb, 0 oz Comment: Follow-up Instructions: With: Address: When: BEATRIZ RAWLS [address], [place] [id number] Business (1) 11:00 AM Discharge Instructions: Diet [...] incision site Medical Equipment for Home Use: [employer]--[phone] [facility][phone] Immunizations Documented During Stay: No Immunizations Found [...] nasal (fluticasone 50 mcg/inh nasal spray) 1 Nada(s) Nostrils Both Every Day. fluticasone/umeclidinium/vilanterol (Trelegy Ellipta) [...] 10/23/2013 Document Revised: 07/19/2015 Document Reviewed: 06/13/2016 Aqu[employer] Interactive Patient Education ? 2017 [employer]. Wound Infection Introduction A wound infection happens [...] instructions at home: Medicines??? Take or apply oxhg-nnx-voeprdc and prescription medicines only as told by [...] cannot use soap and water, use hand supervisor cap and hat production. ? Change your bandage as told by [...] these instructions at home: Medicines ??? Take hvse-rvw-sehvaci and prescription medicines only as told by [...] cannot use soap and water, use hand supervisor cap and hat production. ? Change your bandage as told by [...] 09/19/2012 Document Revised: 03/01/2017 Document Reviewed: 06/03/2016 Aquacue Interactive Patient Education ? 2017 [employer] Inc. Medication Leaflets: tamsulosin (durant angeline FEROZ [...] may report side effects to FDA at 3-039-ABY-1227. What other drugs will affect tamsulosin? Tell [...] may affect tamsulosin. This includes prescription and cthp-jcw-acezbuw medicines, vitamins, and herbal products. Not all [...] to ensure that the information provided by [employer]. ('Multum') is accurate, up-to-date, and complete, but no guarantee is made to that effect. Drug information contained herein may be time sensitive. [employer] information has been compiled for use by healthcare practitioners and consumers in the [place] and therefore [employer] does not warrant that uses outside of the [place] are appropriate, unless specifically indicated otherwise. [employer]'s drug information does not endorse drugs, diagnose patients or recommend therapy. Premium Advert [employer]s drug information is an informational resource designed [...] effective or appropriate for any given patient. [facility] does not assume any responsibility for any aspect of healthcare administered with the aid of information [facility] provides. The information contained herein is not intended to cover all possible uses, directions, precautions, warnings, drug interactions, allergic reactions, or adverse effects. If you have questions about the drugs you are taking, check with your doctor, nurse or pharmacist. Copyright 8912-4006 [facility] [employer]. Version: 9.01. Revision Date: 06/06/2018. enoxaparin (ee [...] may report side effects to FDA at 4-449-ERK-2888. What other drugs will affect enoxaparin? Tell [...] drugs may affect enoxaparin, including prescription and wszq-rzv-lqqvcoi medicines, vitamins, and herbal products. Not all [...] to ensure that the information provided by [employer]. ('[employer]um') is accurate, up-to-date, and complete, but no guarantee is made to that effect. Drug information contained herein may be time sensitive. An[employer] information has been compiled for use by healthcare practitioners and consumers in the [place] and therefore [employer] does not warrant that uses outside of the [place] are appropriate, unless specifically indicated otherwise. [employer]'s drug information does not endorse drugs, diagnose patients or recommend therapy. [employer] drug information is an informational resource designed [...] effective or appropriate for any given patient. [employer] does not assume any responsibility for any aspect of healthcare administered with the aid of information [employer] provides. The information contained herein is not intended to cover all possible uses, directions, precautions, warnings, drug interactions, allergic reactions, or adverse effects. If you have questions about the drugs you are taking, check with your doctor, nurse or pharmacist. Copyright 9666-7442 [facility]. Version: .. Revision Date: 10/14/2017. acetaminophen and [...] may report side effects to FDA at 8-479-EKR-4530. What other drugs will affect acetaminophen and [...] affect acetaminophen and oxycodone, including prescription and jiga-pjb-zgymtzw medicines, vitamins, and herbal products. Not all [...] to ensure that the information provided by [employer]. ('Multum') is accurate, up-to-date, and complete, but no guarantee is made to that effect. Drug information contained herein may be time sensitive. [employer] information has been compiled for use by healthcare practitioners and consumers in the [place] and therefore [employer] does not warrant that uses outside of the [place] are appropriate, unless specifically indicated otherwise. [employer] drug information does not endorse drugs, diagnose patients or recommend therapy. [employer] drug information is an informational resource designed [...] effective or appropriate for any given patient. [employer] does not assume any responsibility for any aspect of healthcare administered with the aid of information [employer] provides. The information contained herein is not intended to cover all possible uses, directions, precautions, warnings, drug interactions, allergic reactions, or adverse effects. If you have questions about the drugs you are taking, check with your doctor, nurse or pharmacist. Copyright 2864-7670 [employer]. Version: 18.02. Revision Date: 06/08/2018. CIGARETTE SMOKING: The facts are clear, cigarette smoking will shorten your life. Smoking can cause many illnesses along the way. As a healthcare provider, we recommend that you stop smoking. Assistance with quitting is available by contacting 2-626-BIID-NOW. This is a free resource providing counseling, [...] Be sure to sign up for the [employer] patient portal, which gives you 01/02 access to your medical information ??? including these discharge instructions ??? using your computer, smartphone, or tablet. Just go to [employer] to get started. Questions? Call . [facility] would like to thank you for allowing us to assist you with your healthcare needs. DEEJAY Pacheco BILL RAY, (or security systems sales representative) have received the above patient education materials/instructions and have verbalized understanding: Patient Signature _ Date/Time Patient Brand Marketing Intern Signature (if needed) Date/Time Clinician/Hospital Brand Marketing Intern Signature (if needed) Date/Time Electronically signed by Amira [facility] Conversion Shoemaking Cutter Justinner at 10/27/2022 8:07 PM CDT documented in this encounter Plan of Treatment Not on file documented as of this encounter Visit Diagnoses Not on filedocumented in this encounter
--- OUTSIDE RECORDS SUMMARY | 2025-05-22 12:10 | XMS_ITS | Referral Summary ---
Author Organization [employer] ([place], [place], [place], [place], [place]) Address [address] [place] [address] Care Team Providers Care Jewel Hole Gauger Name Role Phone Unavailable Primary Care Provider [...]
--- OUTSIDE RECORDS SUMMARY | 2025-05-22 12:10 | XMS_ITS | Encounter Summary ---
Author Organization [employer] ([place], [place], [place], [place], [place]) Address [address] [place] [address] Care Team Providers Care Welder And Fitter Name Role Phone Unavailable Primary Care Provider Unavailabl e Encounter Details Date Type Department Care Team (Late st Contact Info) Description 08/31/2018 Transcribed Document [facility] [place] [facility] [place] [address] ProviderTree MD [address] [place] [address] Social History Tobacco Use Types Packs/Day [...] Note - Tree Alonso MD - 08/31/2018 7:23 AM FASHION COORDINATOR [address] [place] [address] Patient Copy Patient Information: Name: PETRA VILLALBA Current Date: 08/31/2018 07:23:32 : 1955 Patient Address: [address] [place] [phone] Patient Attending Physician: BEATRIZ RAWLS MD-ORT Primary Care Provider: BILL VENTURA MD-KATHLEEN Primary Care Provider Discharge Diagnosis: Weight on Admission: 224 lb, 0 oz Comment: Follow-up Instructions: With: Address: When: BEATRIZ RAWLS [address] [place], [place] [address] [address] [facility] (1) 11:00 AM Discharge Instructions: Immunizations Documented [...] nasal (fluticasone 50 mcg/inh nasal spray) 1 [place](s) Nostrils Both Every Day. fluticasone/umeclidinium/vilanterol (Trelegy Ellipta) [...] Assistance with quitting is available by contacting 5-114-QODT-NOW. This is a free resource providing counseling, [...] Be sure to sign up for the [employer] patient portal, which gives you 01/02 access to your medical information ??? including these discharge instructions ??? using your computer, smartphone, or tablet. Just go to [employer] to get started. Questions? Call . [facility] would like to thank you for allowing us to assist you with your healthcare needs. DEEJAY Pacheco BILL RAY, (or shipping services sales representative) have received the above patient education materials/instructions and have verbalized understanding: Patient Signature _ Date/Time Patient Flare Maker Signature (if needed) Date/Time Clinician/Hospital Flare Maker Signature (if needed) Date/Time Electronically signed by Adalid Collier Conversion Electronics Mechanic Apprentice Cerner at 10/27/2022 8:18 PM CDT documented in this encounter Plan of Treatment Not on file documented as of this encounter Visit Diagnoses Not on filedocumented in this encounter
--- OUTSIDE RECORDS SUMMARY | 2025-05-22 12:10 | XMS_ITS | Encounter Summary ---
Author Organization [employer] ([place], [place], [place], [place], [place]) Address [address] [place] [address] Care Team Providers Care Network Internship Name Role Phone Unavailable Primary Care Provider Unavailabl e Encounter Details Date Type Department Care Team (Late st Contact Info) Description 08/31/2018 Transcribed Document [facility] [place] [facility] [place] [address] ProviderTree MD [facility] [place] [address] Social History Tobacco Use Types [...] Note - Tree Alonso MD - 08/31/2018 10:44 AM PHLEBOTOMY TECH Discharge Instructions Entered On: 08/31/2018 10:46 EST Performed On: 08/31/2018 10:44 EST by Xochilt Ba RN DC Instructions HWD Medical Equipment For Home Use : [employer]--[phone] Home Health Services : [facility]--[phone] Christina Meyers RN - 08/31/2018 11:25 EST [...] 08/31/2018 10:44 EST Electronically signed by Amira, [facility] Conversion Relocation Services Specialist Cerner at 10/27/2022 8:16 PM CDT documented in this encounter Plan of Treatment Not on file documented as of this encounter Visit Diagnoses Not on filedocumented in this encounter
--- OUTSIDE RECORDS SUMMARY | 2025-05-22 12:10 | XMS_ITS | Encounter Summary ---
Author Organization [employer] ([place], [place], [place], [place], [place]) Address [address] [place] [address] Care Team Providers Care Change Room Attendant Name Role Phone Unavailable Primary Care Provider Unavailabl e Encounter Details Date Type Department Care Team (Late st Contact Info) Description 08/31/2018 Transcribed Document [facility] [place] [address] [place] [address] ProviderTree MD [address] [place] [address] Social History Tobacco Use Types [...] - Tree ProviderMD - 08/31/2018 12:00 PM ACCOUNTANT HELPER Pain Assessment Entered On: 08/31/2018 15:28 EST [...]
--- OUTSIDE RECORDS SUMMARY | 2025-05-22 12:10 | XMS_ITS | Clinical Summary ---
Author Organization [facility] Address [address] [place] [address] Phone [email or web address] [employer] Care Team Providers Care Charge Preparation Technician Name Role Phone Handy Pennington Primary Care Provider [phone] Allergies No known active allergies Medications fluticasone [...] 2) 2006 Covid-19 Immunization (1 - 2 season) 2025 Influenza Immunization (#1) 2025 HIB [...] Insurance [place]IN [place] 5 Care Teams Charge Preparation Technician Relationship Specialty Start Date End Date Handy Pennington [address] [place] [id number] PCP - General General Surgery 09/11/19
--- OUTSIDE RECORDS SUMMARY | 2025-05-22 12:10 | XMS_ITS | Encounter Summary ---
Author Organization [facility] Address [address] [id number] Care Team Providers Care Power And Recovery Superintendent Name Role Phone Parrish Thurman MD Primary Care Provider + [phone] Reason for Visit * Reason Comments Med Refill Encounter Details Date Type Department Care Team ([facility] st Contact Info) Description 05/15/2025 Refill [facility] Hematology/BMT and Cellular Therapy Program [address] [address] Mohit Villarreal MD [address] [facility] [address] [place] [address] Social History Tobacco Use Types Packs/Day Years [...] any time in the past 12 m [facility], were you homeless or living in a correction (including now)? 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 file Not on file Not on file documented as of this encounter Plan of Treatment Upcoming Encounters Date Type Department Care Team (Late st Contact Info) Description 05/28/2025 1:00 PM EST Office Visit Medical Office Building Surgery [facility] [address], [address] [place] [address] Afshan Bryan MD [address] [place] [address] documented as of this encounter [...] documented as of this encounter Care Teams Power And Recovery Superintendent Relationship Specialty Start Date End Date Parrish Thurman MD [address] [facility] [address] [place] [address] PCP - General 10/19/24 documented as of this encounter
--- OUTSIDE RECORDS SUMMARY | 2025-05-22 12:10 | XMS_ITS | Encounter Summary ---
Author Organization Healthcare Address [address] [place] [address] Care Team Providers Care Key Account Representative Name Role Phone Parrish Thurman MD Primary Care Provider + [phone] Encounter Details Date Type Department Care Team (Late st Contact Info) Description 04/26/2025 Telephone [facility] [address] [place] [address] Victorina Hurt, PharmD [facility] [place] [id number] Social History Tobacco Use Types Packs/Day Years [...] any time in the past 12 m [facility], were you homeless or living in a detention (including now)? 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 file Not on file Not on file documented as of this encounter Plan of Treatment Upcoming Encounters Date Type Department Care Team (Late st Contact Info) Description 05/28/2025 1:00 PM EST Office Visit Medical Office Building Surgery Spine & Joint [address] [facility], [address] [place] [address] Afshan Bryan MD [address] [place] [address] documented as of this encounter [...] documented as of this encounter Care Teams Key Account Representative Relationship Specialty Start Date End Date Parrish Thurman MD 12[address] [facility] [address] [place] [address] PCP - General 10/19/24 documented as of this encounter
--- OUTSIDE RECORDS SUMMARY | 2025-05-22 12:10 | XMS_ITS | Encounter Summary ---
Author Organization [employer] ([place], [place], [place], [place], [place]) Address [address] [place] [address] Care Team Providers Care Night Warehouse Manager Name Role Phone Unavailable Primary Care Provider Unavailabl e Encounter Details Date Type Department Care Team (Late st Contact Info) Description 08/31/2018 Transcribed Document [facility] [place] Family Medicine [address] [place] [address] ProviderTree MD [address] [place] [address] Social History Tobacco Use Types [...] - Tree ProviderMD - 08/31/2018 7:26 AM BILLIARD TABLE ASSEMBLER Care Management Assessment/Plan Entered On: 08/31/2018 11:28 [...] am to discuss DCP. FRW obtained from [facility] and has been delivered to pt's room. Referral sent to [employer] via [facility] for HHC and informed liaison Aminah. [...] Christina Meyers RN - 08/31/2018 11:26 EST Electronically signed by Adalid Collier Conversion Sales Representative [employer] Justinner at 10/27/2022 8:24 PM CDT documented in this encounter Plan of Treatment Not on file documented as of this encounter Visit Diagnoses Not on filedocumented in this encounter
--- OUTSIDE RECORDS SUMMARY | 2025-05-22 12:10 | XMS_ITS | Encounter Summary ---
Author Organization Healthcare Address [address] [place] [address] Care Team Providers Care Angle Bender Name Role Phone Parrish Thurman MD Primary Care Provider + [phone] Encounter Details Date Type Department Care Team ([facility] st Contact Info) Description 04/18/2025 Telephone [facility] Hematology/BMT and Cellular Therapy Program [address] [address] Mohit Villarreal MD 800 [facility] [address] [place] [address] Social History Tobacco Use Types Packs/Day Years [...] were you homeless or living in a halfway (including now)? No 09/14/2024 CAGE ASSESSMENT Answer [...] drink first t kiet in the morning (EYE-BLAST FURNACE TENDER) to steady your nerves or to [...] with patient. [facility] will need to [facility] his appointments here. Patient did not want to schedule follow up with Dr. Villarreal at this time but will reach out if he needs follow up visit. * Telephone Encounter - Dawn Hernandez - 04/18/2025 2:36 PM EDT Patient called to cancel infusion Callback number: [phone] documented in this encounter Plan of Treatment Upcoming Encounters Date Type Department Care Team (Late st Contact Info) Description 05/28/2025 1:00 PM EST Office Visit Medical Office Building Surgery Spine & Joint [address] [facility], [address] [place] [address] Afshan Bryan MD [address] [place] [address] documented as of this encounter [...] documented as of this encounter Care Teams Angle Bender Relationship Specialty Start Date End Date Parrish Thurman MD [address] [id number] PCP - General 10/19/24 documented as of this encounter
[2025-05-22 12:30] VITALS: BP 137/81; PULSE 93; RESP 18; TEMP 36.6; O2SAT 98
[2025-05-22] MEDS: ZOLEDRONIC ACID 4 MG in 0.9 % SODIUM CHLORIDE 100 ML 420 MG IV (12:30)
[2025-05-22] MEDS: SODIUM CHLORIDE 0.9% 10ML FLUSH SYRINGE 10 ML IV (12:30)
[2025-05-22 12:54] VITALS: BP 131/79; PULSE 89; RESP 18; O2SAT 98
== END 2025-05-22 23:59 | disposition home or self-care (01) ==
LOC: INF 12:07
PROVIDERS: PCP Family Medicine; Visit Provider Internal Medicine Medical Oncology
DX: C90.00 Multiple myeloma not having achieved remission (principal)
CPT/HCPCS: 96374; J3489

== ENCOUNTER 2025-05-23 11:32 | Outpatient (CLI) | payer MEDICARE, SELFPAY ==
--- OUTSIDE RECORDS SUMMARY | 2025-04-05 13:00 | XMS_ITS | Encounter Summary ---
Author Organization [facility] Address [address] [id number] Care Team Providers Care Office Machine Punch Operator Name Role Phone Parrish Thurman MD Primary Care Provider + [phone] Reason for Visit * Episode Based Medications (Routine) - Authorized Specialty Diagnoses / Procedures Referred By Halle banuelos Referred To Contact Diagnoses Multiple myeloma not having achieved remission (CMS/HCC) Procedures DRd: Daratumumab / Lenalidomide / Dexamethasone INDUCTION (Possible Velcade) Mohit Villarreal MD 800 [facility] Cancer [address] [address] Phone: tel: fax: Mohit Villarreal MD [address] [address] Phone: tel: fax: Referral ID Status Reason Start Date Expiration Date V isits Requested Visits Authorized [id number] Authorized 11/27/2024 05/29/2026 1 16 Encounter Details Date Type Department Care Team (Latest Contact Info) Description 04/05/2025 2:00 PM EDT - 04/05/2025 11:59 PM EDT Hospital Encounter [facility] H Infusion 800 [place] [address] Multiple myeloma, remission status unspecified (CMS/HCC) (Primary [...] any time in the past 12 m [facility], were you homeless or living in [...] drink first t kiet in the morning (EYE-MANUFACTURING COORDINATOR) to steady your nerves or to get rid of a hangover? 0 10/26/2024 CAGE Questionnaire Score 0 025 Utilities Answer Date Recorded In the past 12 months has th e [employer], gas, oil, or water company threatened to shut off services in your home? 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 file Not on file Not on file documented as of this encounter Last Filed Vital Signs Vital Sign Reading Time Taken Comments Blood Pressure 145/81 04/05/2025 2:14 PM EDT Pulse 87 04/05/2025 2:14 PM EDT Temperature 36.7 C (98.1 F) 04/05/2025 2:14 PM EDT Respiratory Rate 16 04/05/2025 2:14 PM EDT Oxygen Saturation 95% 04/05/2025 2:14 PM EDT Inhaled Oxygen Concentration - - Weight 110 kg (242 lb 15.2 oz) 04/05/2025 2:14 P M EDT Height 174 cm (5' 8.5 ) 04/05/2025 2:14 PM EDT Body Mass Index 36.4 04/05/2025 2:14 PM EDT documented in this encounter Medications [...] Take 1 tablet by mouth daily. 02/19/2025 lenalidomide (Revlimid) 15 MG capsuleIndications:M ultiple myeloma not having achieved remission (CMS/HCC) Take 1 capsule by mouth daily. Take for 14 days, then off 14 days. 28 day cycle. Take whole with water. Do not break, chew, or open. 14 capsule 03/27/2025 methocarbamol (Robaxin) 500 MG tabletIndications:De generation of [...] NEEDED FOR SEVERE PAIN 60 tablet 03/01/2025 potassium chloride CR (Klor-Con M20) 20 MEQ ER tablet Take 1 tablet by mouth 2 times a day. Do not crush or chew. 60 tablet 1 03/19/2025 documented as of this encounter Plan of Treatment Upcoming Encounters Date Type Department Care Team (Late st Contact Info) Description 05/28/2025 1:00 PM EST Office Visit Medical Office Building [facility] [address], [address] [place] [address] Afshan Bryan MD [address] [place] [address] documented as of this encounter Goals Goal Patient Goal Type Associated Problems Recent Progress Patient-Stated? Author Autogenerat ed Goal Care Plan Autogenerated Problem No Rajiv Garcias MD documented as of this encounter Procedures Procedure Name Priority Date/Time Associated Diagnosis Comments CBC WITH AUTO DIFFERENTIAL Routine 04/05/2025 2:20 PM EDT Multiple myeloma, remission status unspecified ([facility]) documented in this encounter Results * (ABNORMAL) CBC and differential (04/05/2025 2:20 PM EDT) WBC Count 4.72 3.70 - 10.30 10*3/uL LAB HEMATOLOGY METHOD 04/05/2025 4:07 PM EDT [facility] RBC Count 3.80(L) 4.60 - 6.10 10*6/uL LAB HEMATOLOGY METHOD 04/05/2025 4:07 PM EDT [facility] HGB 10.8(L) 13.7 - 17.5 g/dL LAB HEMATOLOGY METHOD 04/05/2025 4:07 PM EDT [facility] HCT 33.6(L) 40.0 - 51.0 % LAB HEMATOLOGY METHOD 04/05/2025 4:07 PM EDT [facility] Platelet Count 182 155 - 369 10*3/uL LAB HEMATOLOGY METHOD 04/05/2025 4:07 PM EDT [facility] MCV 88 79 - 98 fL LAB HEMATOLOGY METHOD 04/05/2025 4:07 PM EDT [facility] MCH 28.4 26.0 - 32.0 pg LAB HEMATOLOGY METHOD 04/05/2025 4:07 PM EDT [facility] MCHC 32.1 30.7 - 35.5 g/dL LAB HEMATOLOGY METHOD 04/05/2025 4:07 PM EDT [facility] RDW 18.9(H) 11.5 - 14.5 % LAB HEMATOLOGY METHOD 04/05/2025 4:07 PM EDT [facility] MPV 11.7 8.8 - 12.5 fL LAB HEMATOLOGY METHOD 04/05/2025 4:07 PM EDT [facility] nRBC 0.0 <=0.0 per 100 WBCs LAB HEMATOLOGY METHOD 04/05/2025 4:07 PM EDT [facility] Differential Type Automated LAB HEMATOLOGY METHOD 04/05/2025 4:07 PM EDT [facility] Neutrophils % 32 % LAB HEMATOLOGY METHOD 04/05/2025 4:07 PM EDT [facility] Lymphocytes % 31 % LAB HEMATOLOGY METHOD 04/05/2025 4:07 PM EDT [facility] Monocytes % 29 % LAB HEMATOLOGY METHOD 04/05/2025 4:07 PM EDT [facility] Eosinophils % 6 % LAB HEMATOLOGY METHOD 04/05/2025 4:07 PM EDT [facility] Basophils % 2 % LAB HEMATOLOGY METHOD 04/05/2025 4:07 PM EDT [facility] Immature Granulocytes % 0 % LAB HEMATOLOGY METHOD 04/05/2025 4:07 PM EDT [facility] Neutrophils Absolute 1.50(L) 1.60 - 6.10 10*3/uL LAB HEMATOLOGY METHOD 04/05/2025 4:07 PM EDT [facility] Lymphocytes Absolute 1.48 1.20 - 3.90 10*3/uL LAB HEMATOLOGY METHOD 04/05/2025 4:07 PM EDT [facility] Monocytes Absolute 1.37(H) 0.30 - 0.90 10*3/uL LAB HEMATOLOGY METHOD 04/05/2025 4:07 PM EDT [facility] Eosinophils Absolute 0.29 0.00 - 0.50 10*3/uL LAB HEMATOLOGY METHOD 04/05/2025 4:07 PM EDT [facility] Basophils Absolute 0.07 0.00 - 0.10 10*3/uL LAB HEMATOLOGY METHOD 04/05/2025 4:07 PM EDT [facility] Immature Granulocytes Absolute 0.01 0.00 - 0.06 10*3/uL LAB HEMATOLOGY METHOD 04/05/2025 4:07 PM EDT [facility] Blood Venous blood specimen / Unknown Venipuncture / Unknown 04/05/2025 2:20 PM EDT 04/05/2025 2:45 PM EDT Narrative [facility] - 04/05/2025 4:07 PM EDT Therapeutic decision making should be based on absolute values, rather than percentages. us Mohit Villarreal MD LAB BLOOD ORDERABLES Final Result [facility] [address] [place] [address] documented in this encounter Visit Diagnoses Diagnosis Multiple myeloma, remission status unspecified (CMS/HCC)- Primary documented in this encounter Administered Medications Inactive Administered Medications - up to 3 most recent administrations Medication Order MAR Action Action Date Dose Rate Site acetaminophen (Tylenol) tablet 650 mg 650 mg, Oral, Once, 1 dose, On Alice 04/05/25 at 1430, RoutineIndications:Mul tiple myeloma, remission status unspecified (CMS/HCC) Given 04/05/2025 2:31 PM EDT 650 mg daratumumab-hyaluronid ase-fihj (Darzalex Faspro) chemo injection 1,800 mg 1,800 mg, Subcutaneous, Administer over 5 Minutes, Once, Inject 15 mL into subcutaneous tissue of abdomen over 3-5 minutes Allow medication to reach room temperature prior to administration., On Alice 04/05/25 at 1530, For 1 doseIndications:Multip le myeloma, remission status unspecified (CMS/HCC) New Syringe/Cartridg e 04/05/2025 3:28 PM EDT 1,800 mg Right Lower Abdomen dexamethasone (Decadron) tablet 20 mg 20 mg, Oral, Once, 1 dose, On Alice 04/05/25 at 1430, RoutineIndications:Mul tiple myeloma, remission status unspecified (CMS/HCC) Given 04/05/2025 2:31 PM EDT 20 mg diphenhydrAMINE (Benadryl) tablet 50 mg 50 mg, Oral, Once, 1 dose, On Alice 04/05/25 at 1430, RoutineIndications:Justo lindsey myeloma, remission status unspecified (CMS/HCC) Given 04/05/2025 2:31 PM EDT 50 mg documented in this encounter Additional Health Concerns Active Problems Noted Date Diagnosed Date Autogenerated Problem 10/19/2024 Assessment Noted Time A fall risk assessment has been complete d for the patient 04/05/2025 2:13 PM EDT A Body Mass Index follow-up plan has been documented for the patient 03/22/2025 12:01 PM EDT documented as of this encounter Care Teams Office Machine Punch Operator Relationship Specialty Start Date End Date Parrish Thurman MD [address] [place] [address] PCP - General 10/19/24 documented as of this encounter
[2025-05-23 11:28] VITALS: BMI 36.5
--- OUTSIDE RECORDS SUMMARY | 2025-05-23 11:38 | XMS_ITS | Encounter Summary ---
Author Organization [employer] ([place], [place], [place], [place], [place]) Address [address] [place] [address] Care Team Providers Care Mannequin Decorator Name Role Phone Unavailable Primary Care Provider Unavailabl e Encounter Details Date Type Department Care Team (Late st Contact Info) Description 08/30/2018 Transcribed Document [facility] Family Medicine [address] [place] [address] ProviderTree MD [address] [place], [place] [address] Social History Tobacco Use Types Packs/Day Years [...] Tree Alonso MD - 08/30/2018 7:00 AM SOLAR PANEL INSTALLATION SUPERVISOR Pain Assessment Entered On: 08/30/2018 15:06 EST Performed On: 08/30/2018 12:35 EST by PAUL PEARSON RN Intervention Information: acetaminophen Performed by PAUL PEARSON RN on 08/30/2018 12:30:00 EST acetaminophen,1000mg IV Piggyback,Left Hand(c) Pain Assessment Pain Assessment : Follow-up assessment Pain Scale Goal : 4 PAUL PEARSON RN - 08/30/2018 15:06 EST Electronically signed by Adalid Collier Conversion Environmental Remediation Engineer Cerner at 10/27/2022 8:14 PM CDT documented in this encounter Plan of Treatment Not on file documented as of this encounter Visit Diagnoses Not on filedocumented in this encounter
--- OUTSIDE RECORDS SUMMARY | 2025-05-23 11:38 | XMS_ITS | Clinical Summary ---
Author Organization [facility] Address [address] [place] [address] Care Team Providers Care Performance Engineer Name Role Phone Provider, No Known Primary [...] Vaccine ( - 2024- season) 03/12/202504/2021 Insurance [employer] P[employer] Care Teams Performance Engineer Relationship Specialty Start Date End Date Provider, No Known [facility] [place] [address] PCP - General 10/22/20
--- OUTSIDE RECORDS SUMMARY | 2025-05-23 11:38 | XMS_ITS ---
Author Organization [facility] Address [address] 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
--- OUTSIDE RECORDS SUMMARY | 2025-05-23 11:38 | XMS_ITS | Encounter Summary ---
Author Organization [employer] ([place], [place], [place], [place], [place]) Address [address] [place] [address] Care Team Providers Care Pitch Worker Name Role Phone Unavailable Primary Care Provider Unavailabl e Encounter Details Date Type Department Care Team (Late st Contact Info) Description 08/30/2018 Transcribed Document [facility] [place] [facility] [place] [address] ProviderTree MD [facility] [place] [address] Social History Tobacco Use Types [...] - Tree ProviderMD - 08/30/2018 2:59 PM KITCHEN AND BATH DESIGNER Evaluation, Physical Therapy Entered On: 08/31/2018 12:38 [...] PT : 62 yo male adm to [facility] 08/30 for adv OA R Knee [...] to Sit Device : Rails, Other: leg covering machine operator Sit to Stand Device : Belt, gait, Walker, front wheel Stand to Sit Device : Belt, gait, Walker, front wheel TEJAL ROBERTS, PT - 08/31/2018 12:08 EST AM [facility] Basic Mobility Turning Over in Bed : Unable Sit Down On/Stand Up From Chair w/ Arms : Unable Move Back Lying to Sitting Side of Bed : Unable Moving To/From a Bed to Chair : A little Need to Walk in Hospital Room : A little Climbing 3-5 Steps with a Railing : A little AM-[facility] Basic Mobility Raw Score : 12 AM-[facility] Basic Mobility Standardized Score : 35.33 AM-[facility] Basic Mobility CMS 0-100% Score : 68.66 % TEJAL ROBERTS, PT - 08/31/2018 12:08 EST Image 1 - Images currently included in the form version of this document have not been included in the text rendition version of the form. Functional Limitation Reporting, PT Functional Limitation Visit Type, PT : Initial evaluation Severity Determination Method, PT : Clinical Judgment, AM [facility] Basic Mobility Mobility G8978 - Current [...] TEJAL ROBERTS, PT - 08/31/2018 12:08 EST Detention Goals Mobility/Bed Mobility LTG PT Grid Goal [...] LE did step in retro fashion joint professional athletes coach NOT present Assessment : good effort, but struggled with bed mob and gait ROM limited by pain 1st day post op needs review of HEP, gait and stairs Joint POTATO CHIP COOKER MACHINE needs to be present Plan for Treatment : review gait and HEP in PM along with step WITH JOINT POTATO CHIP COOKER MACHINE present TEJAL ROBERTS PT - 08/31/2018 12:08 [...] TEJAL ROBERTS, PT - 08/31/2018 12:08 EST [facility] Charges PT Therap. Exercise 15 min : 2 Gait Training Each 15 Min : 1 PT Eval Low Complexity : 1 TEJAL ROBERTS, PT - 08/31/2018 12:08 EST documented in this encounter Plan of Treatment Not on file documented as of this encounter Visit Diagnoses Not on filedocumented in this encounter
--- OUTSIDE RECORDS SUMMARY | 2025-05-23 11:38 | XMS_ITS | Encounter Summary ---
Author Organization [employer] ([place], [place], [place], [place], [place]) Address [address] [place] [address] Care Team Providers Care Ticket Worker Name Role Phone Unavailable Primary Care Provider Unavailabl e Encounter Details Date Type Department Care Team (Late st Contact Info) Description 08/30/2018 Transcribed Document [facility] [place] [facility] [place] [address] ProviderTree MD [facility] [place], [place] [id number] Social History Tobacco Use Types Packs/Day Years [...] - Tree ProviderMD - 08/30/2018 6:23 AM AP PROCESSOR Admission History, Adult Entered On: 08/30/2018 18:55 [...] Ambulatory Legal Guardian : Spouse Support Person/Patient Examination Scorer : Yes Support Person/Pt Rep Name : Wellington Howell - Support Person/Pt Rep Contact Information : [phone] Want Family/Rep/Phys Notified of Admit : No Emergency Contact #1 : Wellington Lynda Emergency Contact #1 Emergency Contact #1 Relationship : Emergency Contact #2 : na Emergency Contact #2 Phone Number : na Emergency Contact #2 Relationship : na Information Obtained From : Patient Primary Language : Luxembourger Preferred Communication Mode : Verbal Communication Barrier [...] Level : 46 or > High Risk [place] Fall Interventions : Adequate lighting, Assistive devices [...] Source : Measured Height Entry Format : [place] Height, Feet : 5 ft(Converted to: 152 cm, 60 Inch) Height, Inches : 8.5 Inch(Converted to: 0 ft 9 Inch, 21.59 cm) Clinical Height : 173.99 cm Weight Source : Standing scale Weight Entry Format : [place] Clinical Dosing Weight : 101.82 kg Weight, Pounds : 224 lb Weight, Ounces : 0 oz Body Surface Area (BSA) : 2.16 m2 Body Mass Index : 33.6 kg/m2 (HI) [place] Body Weight : 69 kg Xochilt Ba [...]
--- OUTSIDE RECORDS SUMMARY | 2025-05-23 11:38 | XMS_ITS | Encounter Summary ---
Author Organization [facility] Address [address] [id number] Care Team Providers Care Manager Training Name Role Phone Parrish Thurman MD Primary Care Provider [phone] Reason for Referral * Medications - Authorized Specialty Diagnoses / Procedures Referred By Halle banuelos Referred To Contact Diagnoses Multiple myeloma not having achieved remission (CMS/HCC) Mohit Villarreal MD [address] [facility] [address] [address] Phone: tel: fax: Referral ID Status Reason Start Date Expiration Date V isits Requested Visits Authorized [id number] Authorized 08/17/2024 11/15/2025 1 1 Encounter Details Date Type Department Care Team (Late st Contact Info) Description 03/27/2025 Refill [facility] Hematology/BMT and Cellular Therapy Program [address] [place] [address] Mohit Villarreal MD [address] [facility] [address] [address] Multiple myeloma not having achieved [...] drink first t kiet in the morning (EYE-SEARCH ENGINE OPTIMIZATION MANAGER) to steady your nerves or to [...] Start Date Job End Date 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 file Not on file Not on file documented as of this encounter Plan of Treatment Upcoming Encounters Date Type Department Care Team (Late st Contact Info) Description 05/28/2025 1:00 PM EST Office Visit Medical Office Building Surgery Spine & Joint [address], [address] [place] [address] Afshan Bryan MD [address] [place] [address] documented as of this encounter [...] documented as of this encounter Care Teams Manager Training Relationship Specialty Start Date End Date Parrish Thurman MD [address] [place] [address] PCP - General 10/19/24 documented as of this encounter
--- OUTSIDE RECORDS SUMMARY | 2025-05-23 11:39 | XMS_ITS | Encounter Summary ---
Author Organization [employer] ([place], [place], [place], [place], [place]) Address [address] [place] [address] Care Team Providers Care Software Requirements Engineer Name Role Phone Unavailable Primary Care Provider Unavailabl e Encounter Details Date Type Department Care Team (Late st Contact Info) Description 08/31/2018 Transcribed Document [facility] [place] Family Medicine [address] [place] [address] ProviderTree MD [address] [place] [address] Social History Tobacco Use Types [...] - Tree ProviderMD - 08/31/2018 1:39 PM LEAD NUCLEAR MEDICINE TECHNOLOGIST Care Management Assessment/Plan Entered On: 08/31/2018 13:46 EST Performed On: 08/31/2018 13:39 EST by Christina Meyers RN Care Management Note Care Management Note : Pt had f/c placed for urinary retention and needs f/u appt with Uro in 5 days. Called [facility] ([phone]) to schedule appt, but MD needs referral and clinicals faxed and then they will call pt with appt. Faxed everything needed and informed pt and spouse. Pt will dc home on Lovenox for DVT prophylaxis. Faxed script for Lovenox to [facility] in [place], they have enough in stock and pt's co-pay is $10. Pt and spouse agree to pay this. Care Management Note Report : Christina Meyers RN - 08/31/18 11:28:36 [id number] Documentation Status Complete : Yes Christina Meyers RN - 08/31/2018 13:39 EST Electronically signed by Am[facility] Conversion Under Water Assistant Cerner at 10/27/2022 8:13 PM CDT documented in this encounter Plan of Treatment Not on file documented as of this encounter Visit Diagnoses Not on filedocumented in this encounter
--- OUTSIDE RECORDS SUMMARY | 2025-05-23 11:39 | XMS_ITS | Encounter Summary ---
Author Organization [employer] ([place], [place], [place], [place], [place]) Address [address] [place] [address] Care Team Providers Care Clay Worker Name Role Phone Unavailable Primary Care Provider Unavailabl e Encounter Details Date Type Department Care Team (Late st Contact Info) Description 08/31/2018 Transcribed Document [facility] [place] Family Medicine [facility] [address] ProviderTree MD [address] [place] [address] Social History Tobacco Use Types Packs/Day [...] Tree Alonso MD - 08/31/2018 7:23 AM PRODUCT LEAD [address] [place] [address] Patient Copy Patient Information: Name: PETRA VILLALBA Current Date: 08/31/2018 07:23:32 : 1955 Patient Address: [address] [place] [address] Patient Attending Physician: BEATRIZ RAWLS MD-ORT Primary Care Provider: BILL VENTURA MD-KATHLEEN Primary Care Provider Discharge Diagnosis: Weight on Admission: 224 lb, 0 oz Comment: Follow-up Instructions: With: Address: When: BEATRIZ RAWLS [address] [place], [place] [address] [place] [address] [facility] (1) 11:00 AM Discharge Instructions: Immunizations Documented [...] nasal (fluticasone 50 mcg/inh nasal spray) 1 [place](s) Nostrils Both Every Day. fluticasone/umeclidinium/vilanterol (Trelegy Ellipta) [...] Assistance with quitting is available by contacting 1-027-ABQG-NOW. This is a free resource providing counseling, [...] Be sure to sign up for the [employer] patient portal, which gives you 01/02 access to your medical information ??? including these discharge instructions ??? using your computer, smartphone, or tablet. Just go to [employer] to get started. Questions? Call . [facility] would like to thank you for allowing us to assist you with your healthcare needs. DEEJAY Pacheco BILL RAY, (or tax representative) have received the above patient education materials/instructions and have verbalized understanding: Patient Signature _ Date/Time Patient Milk Route Supervisor Signature (if needed) Date/Time Clinician/Hospital Milk Route Supervisor Signature (if needed) Date/Time documented in this encounter Plan of Treatment Not on file documented as of this encounter Visit Diagnoses Not on filedocumented in this encounter
--- OUTSIDE RECORDS SUMMARY | 2025-05-23 11:39 | XMS_ITS | Clinical Summary ---
Author Organization [facility] Address [address] [place] [address] Care Team Providers Care Public Stenographer Name Role Phone Parrish Thurman MD Primary Care Provider + [phone] Allergies Active Allergy Reactions Criticality Noted Date [...] 11/08/2024 Cancer Staging:Clinical stage from 11/13/2024:RISS Stage III(Jdlq-6-zccsnbmphxmen (mg/L): 7.7, Albumin (g/dL): 3.6, ISS: Stage [...] 09/08/2010 Monoclonal gammopathy 10/27/2024 Overview (11/10/2024): IgG Brenda Resolved Problems Problem Noted Date Diagnosed Date Resolved Date Chronic obstructive pulmonar y disease with acute lower respiratory infection 01/25/20252024 COPD (chronic obstructive pu lmonary disease) with acute bronchitis 05/13/2016 04/01/2025 Encounters Date Type Department Care Team Description 05/15/2025 Refill [facility]ology[facility]BMT and Cellular Therapy Program [address] [place] [address] Mohit Villarreal MD 04/27/2025 Refill [facility] Cellular Therapy [facility] [address] [place] [address] Mohit Villarreal MD Multiple myeloma not having achieved remission (CMS/HCC) 04/26/2025 Telephone [facility] [address] [place] [address] Victorina Hurt, PharmD 04/18/2025 Telephone [facility] Cellular Therapy [facility] [address] [place] [phone] Mohit Villarreal MD 04/05/2025 2:00 PM EDT - 04/05/2025 11:59 PM EDT Hospital Encounter [facility] [address] [place] [address] Multiple myeloma, remission status unspecified (CMS/HCC) (Primary Dx) Discharge Disposition: Home or Self Care 04/05/2025 Travel 03/27/2025 Orders Only [facility] Therapy [facility] [address] [place] [phone] Natalie Andrews RN Multiple myeloma, remission status unspecified (CMS/HCC) (Primary Dx) 03/27/2025 Refill [facility] [address] [place] [address] Mohit Villarreal MD Multiple myeloma not having achieved remission (CMS/HCC) 03/23/2025 Orders Only [facility] Therapy [facility] [address] [place] [phone] Natalie Andrews RN Multiple myeloma, remission status unspecified (CMS/HCC) (Primary Dx) 03/22/2025 10:28 AM EDT - 03/22/2025 11:59 PM EDT Hospital Encounter [facility] [address] [place] [address] Multiple myeloma, remission status unspecified (CMS/HCC) (Primary Dx) Discharge Disposition: Home or Self Care 03/22/2025 9:00 AM EDT Office Visit [facility] [address] [place] [phone] Mohit Villarreal MD Multiple myeloma, remission status unspecified (CMS/HCC) (Primary Dx); Multiple myeloma not having achieved remission (CMS/HCC); Age-related osteoporosis without current pathological fracture 03/22/2025 8:30 AM EDT Clinical Support [facility] Therapy [facility] [address] [phone] Ginger Menjivar RN 03/22/2025 Travel 03/21/2025 Orders Only [facility] Therapy [facility] [address] [phone] Natalie Andrews RN Multiple myeloma not having achieved remission (CMS/HCC) (Primary Dx) 03/19/2025 Refill [facility] [address] [place] [phone] Mohit Villarreal MD Multiple myeloma not having achieved remission (CMS/HCC) 03/19/2025 Telephone [facility] [address] [phone] Mohit Villarreal MD 03/08/2025 2:00 PM EDT - 03/08/2025 11:59 PM EDT Hospital Encounter [facility] [address] [place] [address] Multiple myeloma, remission status unspecified (CMS/HCC) (Primary Dx) Discharge Disposition: Home or Self Care 03/08/2025 Travel 03/01/2025 Refill [facility]MT [facility] Cellular Therapy [facility] [address] [phone] Bernice Mason APRN Degeneration of intervertebral disc of lumbar region with discogenic back pain and lower extremity pain 03/01/2025 Refill [facility] Therapy [facility] [address] [phone] Mohit Villarreal MD 02/27/2025 Refill [facility] Therapy [facility] [address], [address] [place] [phone] Mohit Villarreal MD Multiple myeloma not having achieved remission (CMS/HCC) 02/23/2025 1:40 PM EDT Office Visit Medical Office Building Surgery Spine & Joint [address] [facility], [address] [place] [address] Rajiv Garcias MD Thoracic spine pain (Primary Dx) 02/23/2025 1:34 PM EDT - 02/23/2025 11:59 PM EDT Hospital Encounter Medical Office Building Radiology [address] [place] [address] Thoracic spine pain Discharge Disposition: Home or Self Care 02/23/2025 Travel 02/22/2025 12:00 PM EDT - 02/22/2025 11:59 PM EDT Hospital Encounter [facility] [address] [place] [address] Multiple myeloma, remission status unspecified (CMS/HCC) (Primary Dx) Discharge Disposition: Home or Self Care 02/22/2025 10:30 AM EDT Office Visit [facility] Hematology/BMT and Cellular Therapy Program [address] [facility], [address] [place] [phone] Bernice Mason APRN Multiple myeloma not having achieved remission (CMS/HCC) (Primary Dx); Encounter for antineoplastic immunotherapy; Encounter for monitoring lenalidomide therapy; Bilateral lower extremity edema 02/22/2025 10:00 AM EDT Clinical Support [facility] Hematology/BMT and Cellular Therapy Program [address] [facility], [address] [place] [phone] 02/22/2025 Travel 02/21/2025 Orders Only [facility] Hematology/BMT and Cellular Therapy Program 750 [facility], [address] [place] [phone] Mohit Villarreal MD Multiple myeloma, remission status unspecified (CMS/HCC) (Primary Dx) 02/20/2025 Orders Only [facility] Hematology/BMT and Cellular Therapy Program 750 [facility], [address] [place] [phone] Messi Melissa, PharmD from Last 3 [...] any time in the past 12 m [facility], were you homeless or [...] drink first t kiet in the morning (EYE-REPAIR SUPERVISOR) to steady your nerves or to get [...] Start Date Job End Date 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 [...] Building Surgery Spine & Joint [address] [facility], [address] [place] [address] Afshan Bryan MD [address] [facility] [address] [place] [address] Health Maintenance Due Date Last [...] (2 - Td or Tdap) 08/17/2023 08/17/2013 [id number] Vaccine (6 - season) 2025 06/19/2024, 06/02/2023, [...] Garcias MD Medical Devices Implanted Type Area Dietary Worker Device Identifier Shelf Expiration Date Model / Serial / Lot Knee Knee Right: Knee Jacinto Viper2 Straight 400mm - [id number] Implanted:Qty: 1 on 09/14/2024 by Rajiv Garcias MD at [facility] Jacinto N/A: Spine Thoracic [employer] LP-[id number] 09/15/2024 [id number] / / Chip Bone 20cc - [id number] - [id number] Implanted:Qty: 1 on 09/14/2024 by Rajiv Garcias MD at [facility] N/A: Spine Thoracic [facility]-[id number] 05/25/2029 PCAN1/4 / [id number] / [id number] Matrix Fibergraft Bg Lg 12.5cc - [id number] Implanted:Qty: 1 on 09/14/2024 by Rajiv Garcias MD at [facility] N/A: Spine Thoracic [employer] LP-[id number] 12/16/2026 [id number] / / [id number] Screw 5.5mm Expedium Verse Fen 5mm X 35mm - [id number] Implanted:Qty: 2 on 09/14/2024 by Rajiv Garcias MD at [facility] N/A: Spine Thoracic [employer] LP-[id number] 09/15/[id number] / / Screw 5.5mm Expedium Verse Fen 5mm X 40mm - [id number] Implanted:Qty: 2 on 09/14/2024 by Rajiv Garcias MD at [facility] N/A: Spine Thoracic [employer] LP-[id number] 09/15/[id number] / / Screw 5.5mm Expedium Verse Fen 5mm X 45mm - [id number] Implanted:Qty: 2 on 09/14/2024 by Rjaiv Garcias MD at [facility] N/A: Spine Thoracic [employer] LP-[id number] 09/15/[id number] / / Screw 5.5mm Expedium Verse Fen 6mm X 45mm - [id number] Implanted:Qty: 2 on 09/14/2024 by Rajiv Garcias MD at [facility] N/A: Spine Thoracic [employer] LP-[id number] 09/14/[id number] / / Screw Set 5.5mm Expedium Verse Unitized - [id number] Implanted:Qty: 8 on 09/14/2024 by Rajiv Garcias MD at [facility] N/A: Spine Lumbar [employer] LP-550329 09/14/[id number] / / Matrix Fibergraft Bg Medium 6.25cc - [id number] Implanted:Qty: 1 on 10/25/2024 by Rajiv Garcias MD at [facility] Spine Lumbar [employer] LP-[id number] 05/25/2027 [id number] / / [id number] Confidence Spinal Cement System Plus 11cc - [id number] Implanted:Qty: 1 on 10/25/2024 by Rajiv Garcias MD at [facility] N/A: Spine Lumbar [employer] LP-[id number] 05/11/2026 [id number] / / [id number] Screw 5.5mm Expedium Verse Fen 6mm X 45mm - [id number] Implanted:Qty: 4 on 10/25/2024 by Rajiv Garcias MD at [facility] N/A: Spine Lumbar [employer]ine [employer] LP-[id number] 10/25/2025 [id number] / / Screw Set 5.5mm Expedium Verse Unitized - [id number] Implanted:Qty: 10 on 10/25/2024 by Rajiv Garcias MD at [facility] N/A: Spine Lumbar [employer] LP-[id number] 10/25/2025 [id number] / / Jacinto Viper2 Straight 480mm - [id number] Implanted:Qty: 1 on 10/25/2024 by Rajiv Garcias MD at [facility] N/A: Spine Lumbar [employer] LP-907470 10/25/2025 [id number] / / Chip Bone 40cc - [id number] - [id number] Implanted:Qty: 1 on 10/25/2024 by Rajiv Garcias MD at [facility] Spine Lumbar [facility]-[id number] 08/24/2029 PCAN1/2 / [id number] / [id number] Procedures Procedure Name Priority Date/Time Associated Diagnosis [...] LAB HEMATOLOGY METHOD 04/05/2025 4:07 PM EDT [facility] RBC Count 3.80(L) 4.60 - 6.10 10*6/uL LAB HEMATOLOGY METHOD 04/05/2025 4:07 PM EDT [facility] HGB 10.8(L) 13.7 - 17.5 g/dL LAB HEMATOLOGY METHOD 04/05/2025 4:07 PM EDT [facility] HCT 33.6(L) 40.0 - 51.0 % LAB HEMATOLOGY METHOD 04/05/2025 4:07 PM EDT [facility] Platelet Count 182 155 - 369 10*3/uL LAB HEMATOLOGY METHOD 04/05/2025 4:07 PM EDT [facility] MCV 88 79 - 98 fL LAB HEMATOLOGY METHOD 04/05/2025 4:07 PM EDT [facility] MCH 28.4 26.0 - 32.0 pg LAB HEMATOLOGY METHOD 04/05/2025 4:07 PM EDT [facility] MCHC 32.1 30.7 - 35.5 g/dL LAB HEMATOLOGY METHOD 04/05/2025 4:07 PM EDT [facility] RDW 18.9(H) 11.5 - 14.5 % LAB HEMATOLOGY METHOD 04/05/2025 4:07 PM EDT [facility] MPV 11.7 8.8 - 12.5 fL LAB HEMATOLOGY METHOD 04/05/2025 4:07 PM EDT [facility] nRBC 0.0 <=0.0 per 100 WBCs LAB HEMATOLOGY METHOD 04/05/2025 4:07 PM EDT [facility] Differential Type Automated LAB HEMATOLOGY METHOD 04/05/2025 4:07 PM EDT [facility] Neutrophils % 32 % LAB HEMATOLOGY METHOD 04/05/2025 4:07 PM EDT [facility] Lymphocytes % 31 % LAB HEMATOLOGY METHOD 04/05/2025 4:07 PM EDT [facility] Monocytes % 29 % LAB HEMATOLOGY METHOD 04/05/2025 4:07 PM EDT [facility] Eosinophils % 6 % LAB HEMATOLOGY METHOD 04/05/2025 4:07 PM EDT [facility] Basophils % 2 % LAB HEMATOLOGY METHOD 04/05/2025 4:07 PM EDT [facility] Immature Granulocytes % 0 % LAB HEMATOLOGY METHOD 04/05/2025 4:07 PM EDT [facility] Neutrophils Absolute 1.50(L) 1.60 - 6.10 10*3/uL LAB HEMATOLOGY METHOD 04/05/2025 4:07 PM EDT [facility] Lymphocytes Absolute 1.48 1.20 - 3.90 10*3/uL LAB HEMATOLOGY METHOD 04/05/2025 4:07 PM EDT [facility] Monocytes Absolute 1.37(H) 0.30 - 0.90 10*3/uL LAB HEMATOLOGY METHOD 04/05/2025 4:07 PM EDT [facility] Eosinophils Absolute 0.29 0.00 - 0.50 10*3/uL LAB HEMATOLOGY METHOD 04/05/2025 4:07 PM EDT [facility] Basophils Absolute 0.07 0.00 - 0.10 10*3/uL LAB HEMATOLOGY METHOD 04/05/2025 4:07 PM EDT [facility] Immature Granulocytes Absolute 0.01 0.00 - 0.06 10*3/uL LAB HEMATOLOGY METHOD 04/05/2025 4:07 PM EDT [facility] Blood Venous blood specimen / Unknown Venipuncture / Unknown 04/05/2025 2:20 PM EDT 04/05/2025 2:45 PM EDT Narrative [facility] - 04/05/2025 4:07 PM EDT Therapeutic decision making should be based on absolute values, rather than percentages. us Mohit Villarreal MD LAB BLOOD ORDERABLES Final Result [facility] [address] [place] [address] * (ABNORMAL) Brenda Lambda Quant Free Light Chains w/Ratio (03/22/2025 9:18 AM EDT) Only the most recent of2 resultswithin the time period is included. Brenda Lambda Free Light Chain Ratio 42.24(H) 0.26 - 1.65 Ratio 03/24/2025 1:36 AM EDT [facility] Brenda Quant Free Light Chains 431.70(H) 3.30 - 19.40 mg/L 03/24/2025 1:36 AM EDT [facility] Lambda Quant Free Light Chains 10.22 5.71 - 26.30 mg/L 03/24/2025 1:36 AM EDT [facility] Blood Venous blood specimen / Unknown Venipuncture / Unknown 03/22/2025 9:18 AM EDT 03/22/2025 9:36 AM EDT Narrative [facility] - 03/24/2025 1:36 AM EDT [...] BLOOD ORDERABLES Final Result Performing Organization Address City/[facility] Co de Phone Number [facility] [address] [place] [address] * (ABNORMAL) Total Protein, Serum (03/22/2025 9:18 AM EDT) Only the most recent of2 resultswithin the time period is included. [facility] Signature Total Protein 5.8(L) 6.2 - 7.7 g/dL 03/22/2025 10:19 AM EDT [facility] Blood Venous blood specimen / Unknown Venipuncture / Unknown 03/22/2025 9:18 AM EDT 03/22/2025 9:36 AM EDT Mohit Villarreal MD LAB BLOOD ORDERABLES Final Result Performing Organization Address City/[facility] [place] [address] * (ABNORMAL) Protein Electrophoresis, Serum (03/22/2025 9:18 AM EDT) Only the most recent of2 resultswithin the time period is included. Albumin Electrophoresis, Serum 3.6 3.6 - 4.7 g/dL 03/23/2025 1:46 AM EDT [facility] Alpha 1 Globulin Electrophoresis, Serum 0.3 0.2 - 0.4 g/dL 03/23/2025 1:46 AM EDT [facility] Alpha 2 Globulin Electrophoresis, Serum 0.7 0.5 - 0.9 g/dL 03/23/2025 1:46 AM EDT [facility] Beta 1 Globulin Electrophoresis, Serum 0.4 0.3 - 0.5 g/dL 03/23/2025 1:46 AM EDT [facility] Beta 2 Globulin Electrophoresis, Serum 0.3 0.2 - 0.5 g/dL 03/23/2025 1:46 AM EDT [facility] Gamma Globulin Electrophoresis, Serum 0.4(L) 0.6 - 1.5 g/dL 03/23/2025 1:46 AM EDT [facility] Interpretation, Serum Protein Electrophoresis Pathology report to follow. 03/23/2025 1:46 AM EDT [facility] Blood Venous blood specimen / Unknown Venipuncture / Unknown 03/22/2025 9:18 AM EDT 03/22/2025 9:37 AM EDT us Mohit Villarreal MD LAB BLOOD ORDERABLES Final Result Performing Organization Address [facility] Co de Phone Number [address] [address] * Protein electrophoresis serum, pathologist interpretation (03/22/2025 9:18 AM EDT) Only the most recent of2 resultswithin the time period is included. 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 A resident was involved in the service. I attest I examined the relevant preparations for the specimens and confirmed the diagnosis or interpretation. 03/23/2025 12:18 PM EDT [facility] Pathologist Signature, SPEP Reviewed by: Carol Miguel MD 03/23/2025 12:18 PM EDT [facility] LAB CP ASR DISCLAIMER Yes 03/23/2025 12:18 PM EDT [facility] Blood Venous blood specimen / Unknown Venipuncture / Unknown 03/22/2025 9:18 AM EDT 03/22/2025 9:37 AM EDT us Mohit Villarreal MD LAB PATHOLOGY ORDERABLES Fi nal Result Performing Organization Address City/[facility]/ZIP Co de Phone Number [facility] [address] [place] [address] [place] [address] * (ABNORMAL) IG Profile (03/22/2025 9:18 AM EDT) IGA 43(L) 75 - 400 mg/dL 03/22/2025 10:42 AM EDT [facility] IGG 508(L) 720 - 1,589 mg/dL 03/22/2025 10:42 AM EDT [facility] IGM 14(L) 35 - 225 mg/dL 03/22/2025 10:42 AM EDT [facility] Blood Venous blood specimen / Unknown Venipuncture / Unknown 03/22/2025 9:18 AM EDT 03/22/2025 9:36 AM EDT us Mohit Villarreal MD LAB BLOOD ORDERABLES Final Result [facility] [address] [place] [address] * (ABNORMAL) Comprehensive metabolic panel (03/22/2025 9:18 AM EDT) Only the most recent of2 resultswithin the time period is included. Pathologist [facility] Glucose, Plasma 112(H) 74 - 99 mg/dL 03/22/2025 10:25 AM EDT [facility] BUN, Plasma 14 8 - 23 mg/dL 03/22/2025 10:25 AM EDT [facility] Creatinine, Plasma 1.01 0.70 - 1.20 mg/dL 03/22/2025 10:25 AM EDT [facility] BUN/Creatinine Ratio 14 03/22/2025 10:25 AM EDT [facility] Sodium, Plasma 143 136 - 145 mmol/L 03/22/2025 10:25 AM EDT [facility] Potassium, Plasma 3.7 3.6 - 4.9 mmol/L 03/22/2025 10:25 AM EDT [facility] Chloride, Plasma 108(H) 97 - 107 mmol/L 03/22/2025 10:25 AM EDT [facility] CO2, Plasma 20(L) 22 - 29 mmol/L 03/22/2025 10:25 AM EDT [facility] Anion Gap 15 6 - 16 mmol/L 03/22/2025 10:25 AM EDT [facility] Total Calcium, Plasma 9.2 8.9 - 10.2 mg/dL 03/22/2025 10:25 AM EDT [facility] Total Protein 6.2(L) 6.3 - 7.9 g/dL 03/22/2025 10:25 AM EDT [facility] Albumin, Plasma 3.9 3.5 - 5.2 g/dL 03/22/2025 10:25 AM EDT [facility] AST, Plasma 25 10 - 50 U/L 03/22/2025 10:25 AM EDT [facility] ALT, Plasma 19 10 - 50 U/L 03/22/2025 10:25 AM EDT [facility] Alkaline Phosphatase, Plasma 90 40 - 115 U/L 03/22/2025 10:25 AM EDT [facility] Total Bilirubin, Plasma 0.7 0.2 - 1.1 mg/dL 03/22/2025 10:25 AM EDT [facility] eGFRcr 81.0 mL/min/1.7 3m*2 03/22/2025 10:25 AM EDT [facility] Comment:Reported eGFRcr in m L/min/1.73m2 is based the CKD-EPI 2020 equation that does not use a race coefficient. Blood Venous blood specimen / Unknown Venipuncture / Unknown 03/22/2025 9:18 AM EDT 03/22/2025 9:36 AM EDT us Mohit Villarreal MD LAB BLOOD ORDERABLES Final Result [facility] [address] [place] [address] * XR Thoracic Spine 2 Views (02/23/2025 [...] - 400 mg/dL 02/22/2025 11:32 AM EDT [facility] IGG 544(L) 720 - 1,589 mg/dL 02/22/2025 11:32 AM EDT [facility] IGM 18(L) 35 - 225 mg/dL 02/22/2025 11:32 AM EDT [facility] Blood Venous blood specimen / Unknown Venipuncture / Unknown 02/22/2025 10:20 AM EDT 02/22/2025 10:42 AM EDT Bernicekeira Mason EXPRESSIVE ART THERAPIST LAB BLOOD ORDERABLES Malena l Result Performing Organization Address [facility]/ZIP Co de Phone Number [facility] [address] [place] [address] * Immunofixation Electrophoresis (02/22/2025 10:20 AM EDT) Immunofixation Interpretation Pathology report to follow. 02/26/2025 2:43 PM EDT [facility] Blood Venous blood specimen / Unknown Venipuncture / Unknown 02/22/2025 10:20 AM EDT 02/22/2025 10:42 AM EDT [facility] [place] EXPRESSIVE ART THERAPIST LAB BLOOD ORDERABLES Malena l Result Performing Organization Address [facility] de Phone Number [facility] [address] [place] [address] * ANGEL serum, pathologist interpretation (02/22/2025 10:20 AM EDT) Pathologist [facility] Clinical Diagnosis, ANGEL Serum IgG Brenda Multiple Myeloma 02/27/2025 11:09 AM EDT [facility] Interpretation , ANGEL Serum There [...] diagnosis or interpretation. 02/27/2025 11:09 AM EDT [facility] Pathologist Signature, ANGEL Serum Reviewed by: Tim Becerra MD 02/27/2025 11:09 AM EDT [facility] CP ASR DISCLAIMER Yes 02/27/2025 11:09 AM EDT [facility] Blood Venous blood specimen / Unknown Venipuncture / Unknown 02/22/2025 10:20 AM EDT 02/22/2025 10:42 AM EDT Bernice Mason EXPRESSIVE ART THERAPIST LAB PATHOLOGY ORDERABLES Final Result [facility] [address] [place] [address] from Last 3 Months Additional Health Concerns Active Problems Noted Date Diagnosed Date Autogenerated Problem 10/19/2024 Insurance [facility] MEDICARE Advance Directives * Full [...] Patient has decision-making capacity? Yes Care Teams Public Stenographer Relationship Specialty Start Date End Date Parrish Thurman MD [address] [facility] [address] [place] [address] PCP - General 10/19/24
--- OUTSIDE RECORDS SUMMARY | 2025-05-23 11:39 | XMS_ITS | Encounter Summary ---
Author Organization [employer] ([place], [place], [place], [place], [place]) Address [address] [place] [address] Care Team Providers Care Lounge Car Attendant Name Role Phone Unavailable Primary Care Provider Unavailabl e Encounter Details Date Type Department Care Team (Late st Contact Info) Description 08/31/2018 Transcribed Document [facility] Family Medicine [facility] [place] [address] ProviderTree MD [address] [place], [place] [id number] Social History Tobacco Use Types Packs/Day Years [...] - Tree ProviderMD - 08/31/2018 4:06 PM ARGON TESTER Discharge Summary, PT Entered On: 08/31/2018 16:07 [...] CARLOS CASTILLO, PT - 08/31/2018 16:06 EST Skilled Nursing Goals Mobility/Bed Mobility LTG PT Grid Goal [...]
--- OUTSIDE RECORDS SUMMARY | 2025-05-23 11:39 | XMS_ITS | Encounter Summary ---
Author Organization [facility] Address [address] [place] [address] Care Team Providers Care Plate Corrector Name Role Phone Parrish Thurman MD Primary Care Provider + [phone] Encounter Details Date Type Department Care Team [...] any time in the past 12 m [facility], were you homeless or living in a penitentiary (including now)? 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 file Not on file Not on file documented as of this encounter Plan of Treatment Upcoming Encounters Date Type Department Care Team ([facility] Contact Info) Description 05/28/2025 1:00 PM EST Office Visit Medical Office Building [facility] [address] [facility], [address] [place] [address] Afshan Bryan MD [address] [facility] [address] [place] [address] documented as of this encounter [...] documented as of this encounter Care Teams Plate Corrector Relationship Specialty Start Date End Date Parrish Thurman MD [facility] [address] [address] PCP - General 10/19/24 documented as of this encounter
--- OUTSIDE RECORDS SUMMARY | 2025-05-23 11:39 | XMS_ITS | Encounter Summary ---
Author Organization Healthcare Address [address] [id number] Care Team Providers Care Assistant Account Manager Name Role Phone Parrish Thurman MD Primary Care Provider + [phone] Reason for Visit * Reason Comments Med Refill Encounter Details Date Type Department Care Team ([facility] st Contact Info) Description 04/27/2025 Refill [facility] CC Hematology/BMT and Cellular Therapy Program [address] [address] Mohit Villarreal MD [address] [facility] [address] [place] [address] Multiple myeloma not having achieved remission (CMS/HCC) [...] any time in the past 12 m [facility], were you homeless or living in a fdc (including now)? 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 file Not on file Not on file documented as of this encounter Plan of Treatment Upcoming Encounters Date Type Department Care Team (Late st Contact Info) Description 05/28/2025 1:00 PM EST Office Visit Medical Office Building [facility] [address], [address] [place] [address] Afshan Bryan MD [address] [place] [address] documented as of this encounter [...] documented as of this encounter Care Teams Assistant Account Manager Relationship Specialty Start Date End Date Parrish Thurman MD [address] [facility] [address] [place] [address] PCP - General 10/19/24 documented as of this encounter
--- OUTSIDE RECORDS SUMMARY | 2025-05-23 11:39 | XMS_ITS | Encounter Summary ---
Author Organization [employer] ([place], [place], [place], [place], [place]) Address [address] [place] [address] Care Team Providers Care A/C Tech Name Role Phone Unavailable Primary Care Provider Unavailabl e Encounter Details Date Type Department Care Team (Late st Contact Info) Description 08/31/2018 Transcribed Document [facility] [address] [place] [address] ProviderTree MD [address] [place] [address] Social History Tobacco Use Types [...] - Tree ProviderMD - 08/31/2018 7:26 AM PUBLIC HEALTH STAFF NURSE Care Management Assessment/Plan Entered On: 08/31/2018 11:28 [...] am to discuss DCP. FRW obtained from [facility] and has been delivered to pt's room. Referral sent to [facility] via [facility] and informed liaison Aminah. [...] : Durable medical equipment, Home health Christina Meeyrs RN - 08/31/2018 11:26 EST Final Discharge [...]
--- OUTSIDE RECORDS SUMMARY | 2025-05-23 11:39 | XMS_ITS | Encounter Summary ---
Author Organization [employer] ([place], [place], [place], [place], [place]) Address [address] [place] [address] Care Team Providers Care Wrapper Off Name Role Phone Unavailable Primary Care Provider Unavailabl e Encounter Details Date Type Department Care Team (Late st Contact Info) Description 08/31/[address] [facility] [place] Family Medicine [facility] [place] [address] ProviderTree MD [address] [place] [address] Social History Tobacco Use Types Packs/Day [...] Tree Alonso MD - 08/31/2018 10:51 AM DIRECTOR TRAFFIC AND PLANNING [address] [place] [address] Patient Copy Patient Information: Name: PETRA VILLALBA Current Date: 08/31/2018 10:51:42 : 1955 Patient Address: [address] [place] [id number] Patient Attending Physician: BEATRIZ RAWLS MD-ORT Primary Care Provider: BILL VENTURA MD-KATHLEEN Primary Care Provider Discharge Diagnosis: Weight on Admission: 224 lb, 0 oz Comment: Follow-up Instructions: With: Address: When: BEATRIZ RAWLS [address], [place] [id number] [facility] (1) 11:00 AM Discharge Instructions: Diet after [...] nasal (fluticasone 50 mcg/inh nasal spray) 1 Eden(s) Nostrils Both Every Day. fluticasone/umeclidinium/vilanterol (Trelegy Ellipta) [...] 10/23/2013 Document Revised: 07/19/2015 Document Reviewed: 06/13/2016 [employer] Interactive Patient Education ? 2017 [employer] Wound Infection Introduction A wound infection [...] instructions at home: Medicines??? Take or apply ihsw-ggb-qocwvjm and prescription medicines only as told by [...] cannot use soap and water, use hand industrial welder. ? Change your bandage as told by [...] these instructions at home: Medicines ??? Take lbij-two-tccgnze and prescription medicines only as told by [...] cannot use soap and water, use hand industrial welder. ? Change your bandage as told by [...] 09/19/2012 Document Revised: 03/01/2017 Document Reviewed: 06/03/2016 [employer] Interactive Patient Education ? 2017 [employer]iders@ [employer]. Medication Leaflets: tamsulosin (durant angeline FEROZ sin) [...] may report side effects to FDA at 6-474-LJC-6174. What other drugs will affect tamsulosin? Tell [...] may affect tamsulosin. This includes prescription and gagk-wda-aajtnzf medicines, vitamins, and herbal products. Not all [...] to ensure that the information provided by [employer]. ('[employer]') is accurate, up-to-date, and complete, but no guarantee is made to that effect. Drug information contained herein may be time sensitive. [employer] information has been compiled for use by healthcare practitioners and consumers in the [place] and therefore [employer]AI does not warrant that uses outside of the [place] are appropriate, unless specifically indicated otherwise. Spontactss drug information does not endorse drugs, diagnose patients or recommend therapy. Spontactss drug information is an informational resource designed [...] effective or appropriate for any given patient. [employer] does not assume any responsibility for any aspect of healthcare administered with the aid of information [facility] provides. The information contained herein is not intended to cover all possible uses, directions, precautions, warnings, drug interactions, allergic reactions, or adverse effects. If you have questions about the drugs you are taking, check with your doctor, nurse or pharmacist. Copyright 4147-2469 [facility]. Version: 9.01. Revision Date: 06/06/2018. enoxaparin (ee [...] may report side effects to FDA at 8-034-YPL-5405. What other drugs will affect enoxaparin? Tell [...] drugs may affect enoxaparin, including prescription and xhon-fiu-vhkrzwa medicines, vitamins, and herbal products. Not all [...] to ensure that the information provided by [employer] ('[employer]') is accurate, up-to-date, and complete, but no guarantee is made to that effect. Drug information contained herein may be time sensitive. [employer] information has been compiled for use by healthcare practitioners and consumers in the [place] and therefore [employer] does not warrant that uses outside of the [place] are appropriate, unless specifically indicated otherwise. [employer]'s drug information does not endorse drugs, diagnose patients or recommend therapy. Spontactss drug information is an informational resource designed [...] effective or appropriate for any given patient. [facility] does not assume any responsibility for any aspect of healthcare administered with the aid of information [facility] provides. The information contained herein is not intended to cover all possible uses, directions, precautions, warnings, drug interactions, allergic reactions, or adverse effects. If you have questions about the drugs you are taking, check with your doctor, nurse or pharmacist. Copyright 1452-7740 [facility], [facility]. Version: 05.12. Revision Date: 10/14/2017. acetaminophen [...] may report side effects to FDA at 9-171-EWY-4943. What other drugs will affect acetaminophen and [...] affect acetaminophen and oxycodone, including prescription and irfp-kbj-ikwtuca medicines, vitamins, and herbal products. Not all [...] to ensure that the information provided by [employer] ('[employer]') is accurate, up-to-date, and complete, but no guarantee is made to that effect. Drug information contained herein may be time sensitive. [employer] information has been compiled for use by healthcare practitioners and consumers in the [place] and therefore [employer] does not warrant that uses outside of the [place] are appropriate, unless specifically indicated otherwise. Spontactss drug information does not endorse drugs, diagnose patients or recommend therapy. Spontactss drug information is an informational resource designed [...] effective or appropriate for any given patient. [employer] does not assume any responsibility for any aspect of healthcare administered with the aid of information [employer] provides. The information contained herein is not intended to cover all possible uses, directions, precautions, warnings, drug interactions, allergic reactions, or adverse effects. If you have questions about the drugs you are taking, check with your doctor, nurse or pharmacist. Copyright 8259-9372 [employer]. Version: 18.02. Revision Date: 06/08/2018. CIGARETTE SMOKING: The facts are clear, cigarette smoking will shorten your life. Smoking can cause many illnesses along the way. As a healthcare provider, we recommend that you stop smoking. Assistance with quitting is available by contacting 6-395-ZGTA-NOW. This is a free resource providing counseling, [...] Be sure to sign up for the [facility] patient portal, which gives you / access to your medical information ??? including these discharge instructions ??? using your computer, smartphone, or tablet. Just go to [employer] to get started. Questions? Call . [facility] would like to thank you for allowing us to assist you with your healthcare needs. IDEEJAY BILL RAY, (or inbound customer service representative) have received the above patient education materials/instructions and have verbalized understanding: Patient Signature _ Date/Time Patient Addiction Counselor Signature (if needed) Date/Time Clinician/Hospital Addiction Counselor Signature (if needed) Date/Time documented in this encounter Plan of Treatment Not on file documented as of this encounter Visit Diagnoses Not on filedocumented in this encounter
--- OUTSIDE RECORDS SUMMARY | 2025-05-23 11:39 | XMS_ITS | Encounter Summary ---
Author Organization [employer] ([place], [place], [place], [place], [place]) Address [address] [place] [address] Care Team Providers Care Personal Driver Name Role Phone Unavailable Primary Care Provider Unavailabl e Encounter Details Date Type Department Care Team (Late st Contact Info) Description 08/31/2018 Transcribed Document [facility] [place] [facility] [place] [address] ProviderTree MD [facility] [place] [id number] Social History Tobacco Use Types Packs/Day Years [...] Tree Alonso MD - 08/31/2018 3:00 PM HVAC MAINTENANCE TECHNICIAN Orthopedic Nurse Navigator Entered On: 08/31/2018 15:03 EST Performed On: 08/31/2018 15:00 EST by JUAN FRAZIER Rn-Ortho Nurse Navigator Orthopedic Nurse Navigator Assessment Attended Joint Academy : Yes Joint AcademyType : In person Joint Academy Date : 08/19/2018 EST Joint Director Patient Attended Academy : Yes Joint Director Patient Name : Wellington Type of Surgery : Total Knee Replacement, Right Does Patient Have a Walker? : No Walker/toilette Ordered for After Discharge : Yes Anticipated Discharge Plan : Home Health PT Anticipated Discharge Plan Comment : Patient plan set at Joint Academy to d/c home with the help of his and [facility]. Patient Completed RAPT [...]
--- OUTSIDE RECORDS SUMMARY | 2025-05-23 11:39 | XMS_ITS | Encounter Summary ---
Author Organization [employer] ([place], [place], [place], [place], [place]) Address [address] [place] [address] Care Team Providers Care Garnetter Name Role Phone Unavailable Primary Care Provider Unavailabl e Encounter Details Date Type Department Care Team (Late st Contact Info) Description 08/30/2018 Transcribed Document [facility] [place] Family Medicine [address] [place] [address] ProviderTree MD [address] [place], [place] [id number] Social History Tobacco Use Types Packs/Day Years [...] Tree Alonso MD - 08/30/2018 10:15 AM FILLER SHREDDER Procedural Documentation Entered On: 08/30/2018 10:21 EST Performed On: 08/30/2018 10:15 EST by TANA SAENZ RN Procedure Documentation Procedure Case Attendee : BAKARI SANCHEZ MD Procedure Case Attendee Role : Anesthesiologist Procedure Case Attendee Role 2 : service center manager Case Attendee 2 : TANA SAENZ RN Procedure Case Attendee Role 3 : service center manager Case Attendee 3 : DESEAN GUILLEN RN [...] Oxygen Flow Rate : 3 Liter/Min TANA SAEZN RN - 08/30/2018 10:22 EST Electronically signed by Amira [facility] Conversion Feather Mixer Cerner at 10/27/2022 8:27 PM CDT documented in this encounter Plan of Treatment Not on file documented as of this encounter Visit Diagnoses Not on filedocumented in this encounter
--- OUTSIDE RECORDS SUMMARY | 2025-05-23 11:39 | XMS_ITS | Referral Summary ---
Author Organization [employer] ([place], [place], [place], [place], [place]) Address [address] [place] [address] Care Team Providers Care Research And Development Director Name Role Phone Unavailable Primary Care Provider [...]
--- OUTSIDE RECORDS SUMMARY | 2025-05-23 11:39 | XMS_ITS | Encounter Summary ---
Author Organization [employer] ([place], [place], [place], [place], [place]) Address [address] [place] [address] Care Team Providers Care Filter Plant Supervisor Name Role Phone Unavailable Primary Care Provider Unavailabl e Encounter Details Date Type Department Care Team (Late st Contact Info) Description 08/31/2018 Transcribed Document [facility] Family Medicine [address] [place] [address] ProviderTree MD [address] [place] [address] Social History Tobacco Use Types [...] - Tree ProviderMD - 08/31/2018 12:00 PM ROUTE SALESMAN AND DRIVER Pain Assessment Entered On: 08/31/2018 15:28 EST [...]
--- OUTSIDE RECORDS SUMMARY | 2025-05-23 11:39 | XMS_ITS | Encounter Summary ---
Author Organization [employer] ([place], [place], [place], [place], [place]) Address [address] [place] [address] Care Team Providers Care Pictures Editor Name Role Phone Unavailable Primary Care Provider Unavailabl e Encounter Details Date Type Department Care Team (Late st Contact Info) Description 08/31/2018 Transcribed Document [facility] [place] Family Medicine [address] [place] [address] ProviderTree MD [address] [place], [place] [id number] Social History Tobacco Use Types Packs/Day Years [...] - Tree ProviderMD - 08/31/2018 2:59 PM UNEMPLOYMENT CLAIMS ADJUDICATOR Education-Surgery Entered On: 08/31/2018 14:59 EST Performed On: 08/31/2018 14:59 EST by JUAN FRAZIER Rn-Ortho Nurse Navigator Teaching/Learning Assessment Individuals Taught : Patient, Spouse Readiness to Learn : Cooperative Readiness to Learn : Demonstration, Explanation, Video/Educational TV Education Comment : Incentive Spirometry taught at [facility] JUAN FRAZIER Rn-Ortho Nurse Elizaator - 08/31/2018 14:59 EST Education Topics, Periop Preadmission Perioperative Education Grid Incentive Spirometry : Verbalizes understanding JUAN FRAZIER Rn-Ortho Nurse Elizaator - 08/31/2018 14:59 EST documented in this encounter Plan of Treatment Not on file documented as of this encounter Visit Diagnoses Not on filedocumented in this encounter
--- OUTSIDE RECORDS SUMMARY | 2025-05-23 11:39 | XMS_ITS | Encounter Summary ---
Author Organization [employer] ([place], [place], [place], [place], [place]) Address [address] [place] [address] Care Team Providers Care Wood Tile Installation Helper Name Role Phone Unavailable Primary Care Provider Unavailabl e Encounter Details Date Type Department Care Team (Late st Contact Info) Description 08/31/2018 Transcribed Document [facility] [place] Medicine [address] [place] [address] ProviderTree MD [address] [place] [phone] Social History Tobacco Use Types Packs/Day Years [...] Tree Alonso MD - 08/31/2018 7:20 AM TERRITORY REPRESENTATIVE Patient: PETRA VILLALBA Age: 62 years Sex: [...]
--- OUTSIDE RECORDS SUMMARY | 2025-05-23 11:39 | XMS_ITS | Encounter Summary ---
Author Organization Healthcare Address [address] [place] [address] Care Team Providers Care Industrial Robotics Mechanic Name Role Phone Parrish Thurman MD Primary Care Provider + [phone] Encounter Details Date Type Department Care Team ([facility] st Contact Info) Description 04/18/2025 Telephone [facility] CC Hematology/BMT and Cellular Therapy Program [address] [address] Mohit Villarreal MD [address] [facility] [address] [place] [address] Social History Tobacco Use Types Packs/Day Years [...] drink first t kiet in the morning (EYE-COLLECTIONS TECHNICIAN) to steady your nerves or to get [...] with patient. [facility] and will need to cancel his appointments here. Patient did not want to schedule follow up with Dr. Villarreal at this time but will reach out if he needs follow up visit. * Telephone Encounter - Dawn Hernandez - 04/18/2025 2:36 PM EDT Patient called to cancel infusion Callback number: [phone] documented in this encounter Plan of Treatment Upcoming Encounters Date Type Department Care Team (Late st Contact Info) Description 05/28/2025 1:00 PM EST Office Visit Medical Office Building Surgery Sp[facility] & [facility] [address] [facility], [address] [place] [address] Afshan Bryan MD [address] [place] [address] documented as of this encounter [...] documented as of this encounter Care Teams Industrial Robotics Mechanic Relationship Specialty Start Date End Date Parrish Thurman MD [address] [place] [phone] PCP - General 10/19/24 documented as of this encounter
--- OUTSIDE RECORDS SUMMARY | 2025-05-23 11:39 | XMS_ITS | Encounter Summary ---
Author Organization [employer] ([place], [place], [place], [place], [place]) Address [address] [place] [address] Care Team Providers Care Creative Project Manager Name Role Phone Unavailable Primary Care Provider Unavailabl e Encounter Details Date Type Department Care Team (Late st Contact Info) Description 08/30/2018 Transcribed Document [facility] [place] [facility] [place] [address] ProviderTree MD [facility] [place] [id number] Social History Tobacco Use Types Packs/Day Years [...] Tree Alonso MD - 08/30/2018 2:42 PM UNIFORM CAP OPERATOR DATE OF PROCEDURE:08/30/2018 PREOPERATIVE DIAGNOSIS(ES): Right knee osteonecrosis, medial femoral condyle with degenerative arthritis. POSTOPERATIVE DIAGNOSIS(ES): Right knee osteonecrosis, medial femoral condyle with degenerative arthritis. PROCEDURE: Right total knee replacement. SURGEON: Jakob Kimble MD MASTER PRINTER: Jakob Celaya PA-C ANESTHESIA: Regional block with [...]
--- OUTSIDE RECORDS SUMMARY | 2025-05-23 11:39 | XMS_ITS | Encounter Summary ---
Author Organization [employer] ([place], [place], [place], [place], [place]) Address [address] [place] [address] Care Team Providers Care Youth Pastor Name Role Phone Unavailable Primary Care Provider Unavailabl e Encounter Details Date Type Department Care Team (Late st Contact Info) Description 08/30/2018 Transcribed Document [facility] [place] Family Medicine [address] [place] [address] ProviderTree MD [address] [place] [address] Social History Tobacco Use Types [...] Tree Alonso MD - 08/30/2018 12:44 PM CIRCULAR SAW OPERATOR [facility] Main OR Preop Summary Primary Physician: BEATRIZ RAWLS MD-ORYuko Finalized Date/Time: 08/30/18 13:52:13 Pt. Name: DEEJAYPETRA D.O.B./Sex: 1955 Male Med Rec #: [id number] Physician: BEATRIZ RAWLS MD-ORYuko Financial #: [id number] Pt. Type: O Room/Bed: /6 Admit/Disch: 08/30/18 06:24:00 - Institution: [facility] PreOp Case Times Entry 1 In Preop 08/30/18 05:35:00 Ready for Holding n/a Room Patient Ready for 08/30/18 10:45:00 Surgery Patient Out of Preop 08/30/18 12:03:00 Patient Out of n/a Holding Room Last Modified By: TANA SAENZ RN 08/30/18 13:52:11 [facility] PreOp Case Times Audit 08/30/18 13:52:11 Clinical Services Manager: MONICO Modifier: BOWLINC <+> 1 Patient Out of Preop 08/30/18 10:52:31 Clinical Services Manager: MONICO Modifier: BOWLINC <+> 1 Patient Ready for Surgery Finalized By: TANA SAENZ, RN Document Signatures Signed By: TANA SAENZ RN 08/30/18 13:52 Electronically signed by Amira [facility] Conversion Loan Servicing Officer Cerner at 10/27/2022 8:06 PM CDT documented in this encounter Plan of Treatment Not on file documented as of this encounter Visit Diagnoses Not on filedocumented in this encounter
--- OUTSIDE RECORDS SUMMARY | 2025-05-23 11:39 | XMS_ITS | Encounter Summary ---
Author Organization [employer] ([place], [place], [place], [place], [place]) Address [address] [place] [address] Care Team Providers Care System Support Developer Name Role Phone Unavailable Primary Care Provider Unavailabl e Encounter Details Date Type Department Care Team (Late st Contact Info) Description 08/19/2018 Transcribed Document [facility] [place] [address] ProviderTree MD [address] [place] [address] Social History Tobacco Use Types [...] - Tree ProviderMD - 08/19/2018 2:34 PM MARINE AIR GROUND TASK FORCE PLANNERS PAT Adult Entered On: 08/19/2018 14:46 EST Performed On: 08/19/2018 14:34 EST by HIRAL MONTOYA RN Height and Weight, Clinical Dosing Height Source : Measured Height Entry Format : [place] Height, Feet : 5 ft(Converted to: 152 cm, 60 Inch) Height, Inches : 8.5 Inch(Converted to: 0 ft 9 Inch, 21.59 cm) Clinical Height : 173.99 cm Weight Source : Standing scale Weight Entry Format : [place] Clinical Dosing Weight : 101.82 kg Weight, Pounds : 224 lb Weight, Ounces : 0 oz Body Surface Area (BSA) : 2.16 m2 Body Mass Index : 33.6 kg/m2 (HI) [place] Body Weight : 69 kg HIRAL MONTOYA [...] Ambulatory Legal Guardian : Spouse Support Person/Patient Digital Marketing Assistant : Yes Support Person/Pt Rep Name : Wellington Howell - Support Person/Pt Rep Contact Information : [phone] Want Family/Rep/Phys Notified of Admit : No Emergency Contact #1 : Wellington Howell Emergency Contact #1 Emergency Contact #1 Relationship : Emergency Contact #2 : na Emergency Contact #2 Phone Number : na Emergency Contact #2 Relationship : na Information Obtained From : Patient Primary Language : Zimbabwean Preferred Communication Mode : Verbal Communication Barrier [...] 08/19/2018 14:34 EST Electronically signed by Amira, [facility] Conversion Heel Emery Buffer Cerner at 10/27/2022 8:04 PM CDT documented in this encounter Plan of Treatment Not on file documented as of this encounter Visit Diagnoses Not on filedocumented in this encounter
--- OUTSIDE RECORDS SUMMARY | 2025-05-23 11:39 | XMS_ITS | Encounter Summary ---
Author Organization Healthcare Address [address] [place] [address] Care Team Providers Care Colorer Hides And Skins Name Role Phone Parrish Thurman MD Primary Care Provider + [phone] Encounter Details Date Type Department Care Team (Late st Contact Info) Description 04/26/2025 Telephone [facility] [address] [place] [address] Victorina Hurt, PharmD [facility] [place] [phone] Social History Tobacco Use Types Packs/Day Years [...] any time in the past 12 m [facility], were you homeless or living in a snf (including now)? 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 file Not on file Not on file documented as of this encounter Plan of Treatment Upcoming Encounters Date Type Department Care Team (Late st Contact Info) Description 05/28/2025 1:00 PM EST Office Visit Medical Office Building Surgery [facility] [address], [address] [place] [address] Afshan Bryan MD [address] [place] [address] documented as of this encounter [...] documented as of this encounter Care Teams Colorer Hides And Skins Relationship Specialty Start Date End Date Parrish Thurman MD [address] [facility] [address] [place] [address] PCP - General 10/19/24 documented as of this encounter
--- OUTSIDE RECORDS SUMMARY | 2025-05-23 11:39 | XMS_ITS | Encounter Summary ---
Author Organization [employer] ([place], [place], [place], [place], [place]) Address [address] [place] [address] Care Team Providers Care Payroll Coordinator Name Role Phone Unavailable Primary Care Provider Unavailabl e Encounter Details Date Type Department Care Team (Late st Contact Info) Description 08/31/2018 Transcribed Document [facility] [place] Family Medicine [place] [address] ProviderTree [place] [address] Social History Tobacco Use Types [...] Tree Alonso MD - 08/31/2018 10:44 AM RN PRACTITIONER Discharge Instructions Entered On: 08/31/2018 10:46 EST Performed On: 08/31/2018 10:44 EST by Xochilt Ba RN DC Instructions [facility]WD Medical Equipment For Home Use : [employer]--[phone] Home Health Services : [facility]--[phone] Christina Meyers RN - 08/31/2018 11:25 EST [...] 08/31/2018 10:44 EST Electronically signed by Amira, [facility] Conversion Emergency Care Attendant Cerner at 10/27/2022 8:16 PM CDT documented in this encounter Plan of Treatment Not on file documented as of this encounter Visit Diagnoses Not on filedocumented in this encounter
--- OUTSIDE RECORDS SUMMARY | 2025-05-23 11:39 | XMS_ITS | Encounter Summary ---
Author Organization [employer] ([place], [place], [place], [place], [place]) Address [address] [place] [address] Care Team Providers Care Medical Center Director Name Role Phone Unavailable Primary Care Provider Unavailabl e Encounter Details Date Type Department Care Team (Late st Contact Info) Description 08/30/2018 Transcribed Document [facility] [place] [facility] [place] [address] ProviderTree MD [facility] [place] [id number] Social History Tobacco Use Types Packs/Day Years [...] Tree Alonso MD - 08/30/2018 6:00 AM SENIOR MARKETING SPECIALIST Patient: PETRA VILLALBA Age: 62 years Sex: [...] Refill(s) fluticasone 50 mcg/inh nasal spray: 1 [place], Nostrils Both, Daily, 0 Refill(s) hydroCHLOROthiazide-triamterene 25 [...] Daily fluticasone 50 mcg/inh nasal spray 1 [place], Nostrils Both, Daily hydroCHLOROthiazide-triamterene 25 mg-37.5 mg [...] All Problems Wears glasses / SNOMED CT 995286340 / Confirmed Sinusitis / SNOMED CT 99062350 / Confirmed Hyperlipidemia / SNOMED CT 53354607 / Confirmed High blood pressure / SNOMED CT 38707606 / Confirmed GERD - Gastro-esophageal reflux disease / SNOMED CT 9665301639 / Confirmed Shortness of breath with exercise / SNOMED CT 420301834 / Confirmed Back pain / SNOMED CT 8293339684 / Confirmed At risk for sleep apnea / IMO 88798228 / Confirmed Asthma / SNOMED CT 486396388 / Confirmed Arthritis / SNOMED CT 7530749 / Confirmed Allergic rhinitis / SNOMED CT 957196653 / Confirmed, Active Problems (11) Allergic rhinitis [...] painful ROM R knee. Integumentary: Warm, Dry, [place]. Neurologic: Alert, Oriented. Psychiatric: Cooperative, Appropriate mood [...]
--- OUTSIDE RECORDS SUMMARY | 2025-05-23 11:39 | XMS_ITS | Encounter Summary ---
Author Organization [employer] ([place], [place], [place], [place], [place]) Address [address] [place] [address] Care Team Providers Care Medical Transcriptionist Name Role Phone Unavailable Primary Care Provider Unavailabl e Encounter Details Date Type Department Care Team (Late st Contact Info) Description 08/30/2018 Transcribed Document [facility] [place] [address] [place] [address] ProviderTree MD [address] [place], [place] [id number] Social History Tobacco Use Types Packs/Day Years [...] Tree Alonso MD - 08/30/2018 12:44 PM GUN MECHANIC [facility] Main OR PACU Summary Primary Physician: BEATRIZ RAWLS MD-ORYuko Finalized Date/Time: 08/30/18 18:53:12 Pt. Name: PETRA VILLALBA D.O.B./Sex: 1955 Male Med Rec #: [id number] Physician: BEATRIZ RAWLS MD-ORYuko Financial #: [id number] Pt. Type: O Room/Bed: 648/1 Admit/Disch: 08/30/18 06:24:00 - Institution: [facility] Main OR PACU I Case Times Entry 1 In PACU I 08/30/18 14:52:00 Ready for PACU 08/30/18 15:45:00 Discharge Discharge from PACU 08/30/18 17:53:00 I Last Modified By: PAUL PEARSON RN 08/30/18 17:39:47 [facility] Main OR PACU I Case Times Audit 08/30/18 18:52:48 Production Support Analyst: NISHA Modifier: NISHA <+> 1 Discharge from PACU I [facility] Main OR PACU Acuity Entry 1 Start Time 08/30/18 15:45:00 Stop Time 08/30/18 17:53:00 Acuity Level [facility] PACU Acuity I Last Modified By: PAUL PEARSON RN 08/30/18 18:52:57 Finalized By: PAUL PEARSON, RN Document Signatures Signed By: PAUL PEARSON RN 08/30/18 18:53 Electronically signed by Amira [facility] Conversion Ip Attorney Cerner at 10/27/2022 8:25 PM CDT documented in this encounter Plan of Treatment Not on file documented as of this encounter Visit Diagnoses Not on filedocumented in this encounter
--- OUTSIDE RECORDS SUMMARY | 2025-05-23 11:39 | XMS_ITS | Encounter Summary ---
Author Organization [employer] ([place], [place], [place], [place], [place]) Address [address] [place] [address] Care Team Providers Care Mate Ship Name Role Phone Unavailable Primary Care Provider Unavailabl e Encounter Details Date Type Department Care Team (Late st Contact Info) Description 08/30/2018 Transcribed Document [facility] [place] [address] [place] [address] ProviderTree MD [facility] [place] [id number] Social History Tobacco Use Types Packs/Day Years [...] - Tree ProviderMD - 08/30/2018 2:59 PM PERCHER Evaluation, Occupational Therapy Entered On: 08/31/2018 14:39 [...] SBA, min A for LB dressing using phy therapist. Pt educated on use AE for LB [...] LEVAR BAJWA OTR/L - 08/31/2018 14:34 EST [place] OT Charges OT Selfcare/Hm Mgmt Ea 15 Min : 1 OT Eval Low Complexity : 1 LEVAR BAJWA OTR/Sis - 08/31/2018 14:34 EST Electronically signed by Amira [facility] Conversion Professional Bass Fisherman Cerner at 10/27/2022 8:26 PM CDT documented in this encounter Plan of Treatment Not on file documented as of this encounter Visit Diagnoses Not on filedocumented in this encounter
--- OUTSIDE RECORDS SUMMARY | 2025-05-23 11:39 | XMS_ITS | Clinical Summary ---
Author Organization [employer] ([place], [place], [place], [place], [place]) Address [address] [place] [address] Care Team Providers Care Investor Relations Director Name Role Phone Unavailable Primary Care [...]
--- OUTSIDE RECORDS SUMMARY | 2025-05-23 11:39 | XMS_ITS | Encounter Summary ---
Author Organization [employer] ([place], [place], [place], [place], [place]) Address [address] [place] [address] Care Team Providers Care Karate Instructor Name Role Phone Unavailable Primary Care Provider Unavailabl e Encounter Details Date Type Department Care Team (Late st Contact Info) Description 08/31/2018 Transcribed Document [facility] Medicine [facility] [place] [address] ProviderTree MD [facility] [place], [place] [id number] Social History Tobacco Use Types Packs/Day Years [...] - Tree ProviderMD - 08/31/2018 12:39 PM EMOTIONALLY IMPAIRED TEACHER Treatment Intervention, PT Entered On: 08/31/2018 16:05 [...] AM-PAC Basic Mobility Standardized Score : 43.63 AM-[facility] Basic Mobility CMS 0-100% Score : 46.58 [...] CARLOS CASTILLO, PT - 08/31/2018 15:55 EST Intermediate Goals Mobility/Bed Mobility LTG PT [...] Patient was independent with TKR HEP. Joint life skills coach was present for teaching and states [...] CARLOS CASTILLO, PT - 08/31/2018 15:55 EST [place] PT Charges PT Therap. Exercise 15 min : 1 Gait Training Each 15 Min : 2 CARLOS CASTILLO PT - 08/31/2018 15:55 EST Electronically signed by Adalid Collier Conversion Cryptologic Technician Technical Cerner at 10/27/2022 8:00 PM CDT documented in this encounter Plan of Treatment Not on file documented as of this encounter Visit Diagnoses Not on filedocumented in this encounter
--- OUTSIDE RECORDS SUMMARY | 2025-05-23 11:39 | XMS_ITS | Encounter Summary ---
Author Organization [employer] ([place], [place], [place], [place], [place]) Address [address] [place] [address] Care Team Providers Care Four Horse Hitch Driver Name Role Phone Unavailable Primary Care Provider Unavailabl e Encounter Details Date Type Department Care Team (Late st Contact Info) Description 08/30/2018 Transcribed Document [facility] [place] [address] [place] [address] ProviderTree MD [address] [place] [id number] Social History Tobacco Use Types Packs/Day Years [...] - Tree ProviderMD - 08/30/2018 2:59 PM WATCH LEADER Pain Assessment Entered On: 08/31/2018 15:30 EST [...]
--- OUTSIDE RECORDS SUMMARY | 2025-05-23 11:39 | XMS_ITS | Encounter Summary ---
Author Organization [employer] ([place], [place], [place], [place], [place]) Address [address] [place] [address] Care Team Providers Care Zigzag Appliquer Name Role Phone Unavailable Primary Care Provider Unavailabl e Encounter Details Date Type Department Care Team (Late st Contact Info) Description 08/31/2018 Transcribed Document [facility] [place] [address] [place] [address] ProviderTree MD [facility] [place] [address] Social History Tobacco Use Types [...] - Tree ProviderMD - 08/31/2018 10:44 AM SALES SUPPORT ENGINEER Nursing Discharge Summary Entered On: 08/31/2018 10:44 [...] Questions Given : Patient, Spouse, Other: joint wellness health coach Patient Education Completed : Yes Teaching Method : Explanation, Printed materials Teaching Evaluation : Needs further teaching Xochilt Ba RN - 08/31/2018 10:44 EST Electronically signed by Amira [facility] Conversion Release Manager Cerner at 10/27/2022 8:20 PM CDT documented in this encounter Plan of Treatment Not on file documented as of this encounter Visit Diagnoses Not on filedocumented in this encounter
--- OUTSIDE RECORDS SUMMARY | 2025-05-23 11:39 | XMS_ITS | Encounter Summary ---
Author Organization [employer] ([place], [place], [place], [place], [place]) Address [address] [place] [address] Care Team Providers Care Chiller Hand Name Role Phone Unavailable Primary Care Provider Unavailabl e Encounter Details Date Type Department Care Team (Late st Contact Info) Description 08/31/2018 Transcribed Document [facility] [place] Family Medicine [address] [place] [address] ProviderTree MD [address] [place], [place] [id number] Social History Tobacco Use Types Packs/Day Years [...] Tree Alonso MD - 08/31/2018 7:06 AM TELEMARKETING AGENT Patient: PETRA VILLALBA Age: 62 years Sex: Male : 1955 Associated Diagnoses: None Author: BEATRIZ RAWLS MD-ORT Alert, walked by himself yesterday as PT had gone home. Afeb VS stable distal nvs intact xrays good Hb 15.4 to 14.0 post op stable Plan: walk, dc home Lovenox, percocet 5 RTO 2 weeks Electronically signed by [facility] Conversion City Route Driver Cerner at 10/27/2022 8:14 PM CDT documented in this encounter Plan of Treatment Not on file documented as of this encounter Visit Diagnoses Not on filedocumented in this encounter
--- OUTSIDE RECORDS SUMMARY | 2025-05-23 11:39 | XMS_ITS | Encounter Summary ---
Author Organization [facility] Address [address] [place] [id number] Care Team Providers Care Sales Development Specialist Name Role Phone Parrish Thurman MD Primary Care Provider + [phone] Reason for Visit * Reason Comments Med Refill Encounter Details Date Type Department Care Team ([facility] st Contact Info) Description 05/15/2025 Refill [facility] Hematology/BMT and Cellular Therapy Program [address] [address] Mohit Villarreal MD [address] [facility] [address] [place] [address] Social History Tobacco Use Types Packs/Day Years [...] any time in the past 12 m [facility], were you homeless or living [...] drink first t kiet in the morning (EYE-BELT CHANGER) to steady your nerves or to get [...] Start Date Job End Date 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 file Not on file Not on file documented as of this encounter Plan of Treatment Upcoming Encounters Date Type Department Care Team (Late st Contact Info) Description 05/28/2025 1:00 PM EST Office Visit Medical Office Building Surgery [facility] [address], [address] [place] [address] Afshan Bryan MD [address] [place] [address] documented as of this encounter [...] documented as of this encounter Care Teams Sales Development Specialist Relationship Specialty Start Date End Date Parrish Thurman MD [address] [facility] [address] [place] [address] PCP - General 10/19/24 documented as of this encounter
--- OUTSIDE RECORDS SUMMARY | 2025-05-23 11:39 | XMS_ITS | Encounter Summary ---
Author Organization [employer] ([place], [place], [place], [place], [place]) Address [address] [place] [address] Care Team Providers Care Laborer Airport Maintenance Name Role Phone Unavailable Primary Care Provider Unavailabl e Encounter Details Date Type Department Care Team (Late st Contact Info) Description 09/02/2018 Transcribed Document [facility] [facility] [place] [address] ProviderTree MD [facility] [place], [place] [id number] Social History Tobacco Use Types Packs/Day Years [...] Tree Alonso MD - 09/02/2018 1:30 PM AIRPLANE INSPECTOR Post Visit Phone Call Entered On: 09/02/2018 13:33 EST Performed On: 09/02/2018 13:30 EST by JUAN FRAZIER Rn-Ortho Nurse Navigator Post Visit Phone Call Post Visit Phone Call History : First call Phone Number : [phone] Contact Relationship to Patient : Spouse Emergency [...] Urology appointment made with Dr. Eugene in [place] on 09/05/18 at 2:15. states understanding. JUAN FRAZIER, Boby-Ortho Nurse Navigator - 09/02/2018 13:30 EST Electronically signed by Amira [facility] Conversion Telephone Operator Chief Cerner at 10/27/2022 8:06 PM CDT documented in this encounter Plan of Treatment Not on file documented as of this encounter Visit Diagnoses Not on filedocumented in this encounter
--- OUTSIDE RECORDS SUMMARY | 2025-05-23 11:39 | XMS_ITS | Encounter Summary ---
Author Organization [facility] Address [address] [place] [id number] Care Team Providers Care Larry Car Operator Name Role Phone Parrish Thurman MD Primary Care Provider + [phone] Reason for Referral * Consultation (Routine) - Authorized Specialty Diagnoses / Procedures Referred By Halle banuelos Referred To Contact Hematology and Oncology Diagnoses Multiple myeloma, remission status unspecified (CMS/HCC) Mohit Villarreal MD [address] [facility] Cancer [address] [address] Phone: tel: fax: Referral ID Status Reason Start Date Expiration Date Visits Requested Visits Authorized [id number] Authorized Specialty Services Required 03/27/2025 09/26/2026 1 1 Encounter Details Date Type Department Care Team ([facility] Contact Info) Description 03/27/2025 Orders Only [facility] Hematology/BMT and Cellular Therapy Program [address] [place] [address] Natalie Andrews, RN [facility] Multiple myeloma, remission status [...] any time in the past 12 m [facility], were you homeless or [...] drink first t kiet in the morning (EYE-AUTOMOTIVE SALES ASSOCIATE) to steady your nerves or to get [...] Start Date Job End Date 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 file Not on file Not on file documented as of this encounter Plan of Treatment Upcoming Encounters Date Type Department Care Team ([facility] st Contact Info) Description 05/28/2025 1:00 PM EST Office Visit Medical Office Building Surgery Spine & Joint [address], [address] [place] [address] Afshan Bryan MD [address] [place] [address] Scheduled Referrals Name Type Priority [...] documented as of this encounter Care Teams Larry Car Operator Relationship Specialty Start Date End Date Parrish Thurman MD [address] [facility] [address] [place] [address] PCP - General 10/19/24 documented as of this encounter
--- OUTSIDE RECORDS SUMMARY | 2025-05-23 11:39 | XMS_ITS | Encounter Summary ---
Author Organization [employer] ([place], [place], [place], [place], [place]) Address [address] [place] [address] Care Team Providers Care Curing Oven Attendant Name Role Phone Unavailable Primary Care Provider Unavailabl e Encounter Details Date Type Department Care Team (Late st Contact Info) Description 08/30/2018 Transcribed Document [facility] [place] [address] [place] [address] ProviderTree MD [address] [place] [address] Social History Tobacco Use Types [...] Tree Alonso MD - 08/30/2018 12:44 PM STUDENT SERVICES ADVISOR [facility] Main OR IntraOp Summary Primary Physician: BEATRIZ RAWLS MD-ORT Finalized Date/Time: 08/31/18 09:28:34 Pt. Name: PETRA VILLALBA RENETTA /Sex: 1955 Male Med Rec #: [id number] Physician: BEATRIZ RAWLS MD-ORT Financial #: [id number] Pt. Type: O Room/Bed: 648/1 Admit/Disch: 08/30/18 06:24:00 - Institution: [facility] IntraOp Case Attendance Entry 1 Entry 2 Entry 3 Case Attendee BEATRIZ RAWLS MD-ORT KESHEIMER, DAVID K, PA Summers, Jennifer, [employer] Pref Card Builder Role Performed Surgeon/Proceduralist, Physician rehab care assistant Scrub, First First Time In 08/30/18 12:12:00 [...] Maynard, RN Gabriela Fabian, RN LARRY ADAIR, MANAGER TRAINEE Role Performed Director Of Perioperative Services, First Director Of Perioperative Services, Second MANAGER TRAINEE/Nurse Body Shop Supervisor Time In 08/30/18 12:12:00 08/30/18 12:12:00 08/30/18 [...] ANAHI ALAS MD OTHER, ATTENDEE Grady Tate, MANAGER TRAINEE Role Performed Anesthesiologist Vendor MANAGER TRAINEE/Nurse Body Shop Supervisor Time In 08/30/18 12:12:00 08/30/18 12:12:00 08/30/18 13:50:00 Time Out 08/30/18 14:50:00 08/30/18 14:50:00 08/30/18 14:50:00 Procedure Knee Total Joint Knee Total Joint Knee Total Joint Replacement(Right) Replacement(Right) Replacement(Right) Other Attendee tamar tan Superficial Wound Closed By: Last Modified By: Tana Maynard, RN Tana Maynard, RN Tana Maynard RN 08/30/18 14:50:09 08/30/18 11:46:42 08/30/18 14:50:09 [facility] IntraOp Case Attendance Audit 08/30/18 14:50:09 Consultant Rn: HAMILTGM Modifier: HAMILTGM 1 <+> Time Out [...] Procedure Knee Total Joint Replacement(Right) 08/30/18 14:02:03 Consultant Rn: HAMILTGM Modifier: HAMILTGM 1 <+> Time In [...] <+> 9 Time In <+> 9 Procedure [facility] IntraOp Case Times Entry 1 Patient In Room Time 08/30/18 12:12:00 Out Room Time 08/30/18 14:50:00 Anesthesia Start Time 08/30/18 12:12:00 Stop Time 08/30/18 14:50:00 Anesthesia Ready 08/30/18 12:12:00 Surgery / Procedure Times Start Time 08/30/18 12:44:00 Stop Time 08/30/18 14:36:00 Last Modified By: Tana Maynard RN 08/30/18 12:45:24 [facility] IntraOp Case Times Audit 08/30/18 14:50:07 Consultant Rn: HAMILTGM Modifier: HAMILTGM <+> 1 Out Room Time <+> 1 Stop Time 08/30/18 14:36:41 Consultant Rn: HAMILTGM Modifier: HAMILTGM <+> 1 Stop Time 08/30/18 12:45:28 Consultant Rn: HAMILTGM Modifier: HAMILTGM 1 <*> Start Time 08/30/18 12:45:00 [facility] IntraOp Cautery Entry 1 ESU Identification Cautery Type Monopolar ESU ID Number [id number] ID Type Hospital Number Cautery Settings Cut Setting 50 Coag Setting 50 ESU Grounding Pad Ground Pad Type Adult Grounding Pad Site Right Flank Grounding Pad Tana Maynard RN Applied By Grounding Pad Site Warm, dry and intact Skin Condition Before Cautery Grounding Pad Site Unchanged Skin Condition After Cautery Last Modified By: Tana Maynard RN 08/30/18 11:47:37 [facility] IntraOp Communication Entry 1 Entry 2 Entry 3 Communication To Family/Significant other Other Family/Significant other Comment start report close Communication By Gabriela Fabian, Gabriela Ty RN Hamilton, Gina M, RN Date and Time 08/30/18 12:38:00 08/30/18 14:18:00 08/30/18 14:40:00 Last Modified By: Tana Maynard RN Hamilton, Gina M, RN Hamilton, Gina M, RN 08/30/18 12:46:33 08/30/18 14:18:15 08/30/18 14:50:38 [facility] IntraOp Communication Audit 08/30/18 14:50:38 Consultant Rn: HAMILTGM Modifier: HAMILTGM <+> 3 Communication By <+> 3 Date and Time <+> 3 Communication To <+> 3 Comment 08/30/18 14:18:15 Consultant Rn: HAMILTGM Modifier: HAMILTGM <+> 2 Communication By <+> 2 Date and Time <+> 2 Communication To <+> 2 Comment [facility] IntraOp Counts Verification Entry 1 Entry 2 [...] Performed By Shaneka Oakley Summers, Jennifer, (Scrub) [employer] Pref Card Builder [employer] Pref Card Builder Count Performed By Tana Maynard RN Hull, Tamara, RN (RN) Last Modified By: Tana Maynard RN Hamilton, Gina M, RN 08/30/18 11:47:51 08/30/18 14:11:48 [facility] IntraOp Counts Verification Audit 08/30/18 14:11:48 Consultant Rn: HAMILTGM Modifier: HAMILTGM <+> 2 Procedure <+> 2 Count Type <+> 2 Counts Verification Sequence <+> 2 Count Results <+> 2 Count Performed By (Scrub) <+> 2 Count Performed By (RN) [facility] IntraOp Counts Final Entry 1 Procedure Knee Total Joint Replacement(Right) Final Count Info Count Type Sponge, Sharps, Miscellaneous Counts Verification Skin Closure/end of Sequence procedure Count Results Correct, surgeon notified Counts Performed By Count Performed By Shaneka Oakley, (Scrub) [employer] Pref Card Builder Count Performed By Taan Maynard RN (RN) Last Modified By: Tana Maynard RN 08/30/18 11:47:59 [facility] IntraOp Counts Final Audit 08/30/18 14:18:03 Consultant Rn: HAMILTGM Modifier: HAMILTGM 1 <*> Procedure Knee Total Joint Replacement(Right) 1 <+> Count Performed By (Scrub) 1 <+> Count Performed By (RN) [facility] IntraOp Cultures and Spec Summary Entry 1 Cultrures and Specimens Specimen Ordered: Yes Specimens Types Pathology Specimen(s) Labeled Pathology and Sent to Last Modified By: Tana Maynard RN 08/30/18 11:48:16 General Comments: a. right knee bone fragments and tissue [facility] IntraOp Departure from OR Entry 1 Integumentary Assessment Integumentary WDL Assessment WDL Transfer/Handoff Transfer to PACU Phase I Handoff Method Phone call Post-op Transport Stretcher/Gurney Via Patient Transport BEATRIZ PEACE PA, Accompanied by LARRY ADAIR CRNA Last Modified By: Tana Maynard RN 08/30/18 11:48:34 [facility] IntraOp Dressing and Packing Entry 1 Type Dressing Location opsite Wound Dressing Item Skin Closure Glue, Joe Supplemental Limb immobilizer Applications Applied By BEATRIZ RAWLS MD-ORT Other Comments aquacel. Last Modified By: Tana Maynard RN 08/30/18 11:49:15 [facility] IntraOp Fire Risk Assessment Entry 1 Fire [...] Modified By: Tana Maynard RN 08/30/18 11:49:27 [facility] IntraOp General Case Furnace Installer 1 Case Information OR OR 04 [facility] Case Level 1 Room Verified Yes Wound Class I - Clean Specialty SN Orthopedic Anesthesia Type General ASA Class 2 Diagnosis Preop Diagnosis oa - right knee Postop Same As Preop No Postop Diagnosis see doctor's post op notes Last Modified By: Tana Maynard RN 08/30/18 12:46:14 [facility] IntraOp General Case Data Audit 08/30/18 12:46:14 Consultant Rn: JOCELIN Modifier: OLEGARIOILTGM <+> 1 ASA Class [facility] IntraOp Implant Log Entry 1 Entry 2 Entry 3 Type Implant (Synthetic) Implant (Synthetic) Implant (Synthetic) Implant Log Implant Type Bone Cement Hardware Hardware Tissue Implant Type Implant CEMENT BONE SURG SMPLX TIB CEMENTED STEM SZ F PATELLA RAY PERSONA Identification P [id number] Description Implant Quantity 2 1 1 Implant Site opsite opsite opsite Implant Identification Model Number Implant Identification Serial Number Implant [id number] Identification Lot Number Implant An:Steele Hernandez:Hernandez Us Hernandez:Hernandez Us Identification Orthopaedics Respite Worker Name: Implant [id number] Identification Catalog Number Implant Size Implant Has an Yes Yes Yes Expiration Date Implant Expiration 11/08/20 03/11/28 09/09/23 Date Wasted Radioactive Material Time Implanted Tissue Implant Continue for Tissue Implant Documentation Tissue Identification Number Graft Prep Per Respite Worker Instructions: Tissue Preparation Method: Reconstitution Solution: Reconstitution Solution Lot Number Reconstitution Solution Expiration Date: Thawing Solution Thawing Solution Lot Number Thawing Solution Expiration Date Preparation Materials, Other Preparation Materials, Other Lot Number Preparation Materials, Other Expiration Date Tissue Prepared/Processed By Respite Worker Paperwork Completed Implant Type Comment Last Modified By: Tana Maynard RN Hamilton, Gina M, Tana Avila RN 08/30/18 11:50:26 08/30/18 13:50:14 08/30/18 13:50:14 Entry 4 Entry 5 Type Implant (Synthetic) Implant (Synthetic) Implant Log Implant Type Hardware Hardware Tissue Implant Type Implant IMP KNEE FEM PSN CR CMT PSN ART SURF MC 10 Identification [id number] Description Implant Quantity 1 1 Implant Site opsite opsite Implant Identification Model Number Implant Identification Serial Number Implant [id number] Identification Lot Number Implant Hernandez:Hernandez Us Hernandez:Hernandez Us Identification Respite Worker Name: Implant [id number] Identification Catalog Number Implant Size Implant Has an Yes Yes Expiration Date Implant Expiration 10/10/27 04/10/23 Date Wasted Radioactive Material Time Implanted Tissue Implant Continue for Tissue Implant Documentation Tissue Identification Number Graft Prep Per Respite Worker Instructions: Tissue Preparation Method: Reconstitution Solution: Reconstitution Solution Lot Number Reconstitution Solution Expiration Date: Thawing Solution Thawing Solution Lot Number Thawing Solution Expiration Date Preparation Materials, Other Preparation Materials, Other Lot Number Preparation Materials, Other Expiration Date Tissue Prepared/Processed By Respite Worker Paperwork Completed Implant Type Comment Last Modified By: Tana Maynard RN Hamilton, Gina M, RN 08/30/18 13:50:14 08/30/18 14:04:53 [facility] IntraOp Implant Log Audit 08/30/18 14:04:53 Consultant Rn: JOCELIN Modifier: BEVERLYTGM <+> 5 Implant Identification Description <+> 5 Implant Identification Lot Number <+> 5 Implant Identification Respite Worker Name: <+> 5 Implant Expiration Date <+> 5 Implant Site <+> 5 Implant Quantity <+> 5 Implant Identification Catalog Number <+> 5 Implant Type <+> 5 Implant Has an Expiration Date <+> 5 Type 08/30/18 13:50:14 Consultant Rn: JOCELIN Modifier: BEVERLYTGM <+> 2 Implant Identification Description <+> 2 Implant Identification Lot Number <+> 2 Implant Identification Respite Worker Name: <+> 2 Implant Expiration Date <+> 2 Implant Site <+> 2 Implant Quantity <+> 2 Implant Identification Catalog Number <+> 2 Implant Type <+> 2 Implant Has an Expiration Date <+> 2 Type <+> 3 Implant Identification Description <+> 3 Implant Identification Lot Number <+> 3 Implant Identification Respite Worker Name: <+> 3 Implant Expiration Date <+> 3 Implant Site <+> 3 Implant Quantity <+> 3 Implant Identification Catalog Number <+> 3 Implant Type <+> 3 Implant Has an Expiration Date <+> 3 Type <+> 4 Implant Identification Description <+> 4 Implant Identification Lot Number <+> 4 Implant Identification Respite Worker Name: <+> 4 Implant Expiration Date <+> 4 Implant Site <+> 4 Implant Quantity <+> 4 Implant Identification Catalog Number <+> 4 Implant Type <+> 4 Implant Has an Expiration Date <+> 4 Type 08/30/18 13:42:36 Consultant Rn: JOCELIN Modifier: BEVERLYTGLuis 1 <*> Implant Identification Description CEMENT BONE SURG SMPLX P [id number] <*> Implant Quantity 1 [facility] IntraOp Intraoperative Assessment Entry 1 Handoff Method [...] Modified By: Tana Maynard RN 08/30/18 11:50:42 [facility] IntraOp Intraoperative Equipment Entry 1 Type Equipment [...] Modified By: Tana Maynard RN 08/30/18 11:51:13 [facility] IntraOp Medication Admin Entry 1 Medication/Irrigant NORMAL SALINE Route of irrigation Administration Dose Dose 2000 Unit of Measure ml Volume 50ml betadine added Administered By BEATRIZ RAWLS MD-ORT Procedure Irrigation Last Modified By: Tnaa Maynard RN 08/30/18 11:51:46 [facility] IntraOp Patient Positioning Entry 1 Procedure Knee [...] Modified By: Tana Maynard RN 08/30/18 11:53:17 [facility] IntraOp Sign In Entry 1 Patient, Site, [...] Modified By: Tana Maynard RN 08/30/18 12:45:43 [facility] IntraOp Sign Out Entry 1 RN Confirmation [...] Modified By: Tana Maynard RN 08/30/18 11:53:41 [facility] IntraOp Sign Out Audit 08/30/18 14:50:17 Consultant Rn: HAMILTGM Modifier: HAMILTGM <+> 1 RN Sign Out Signature Date/Time [facility] IntraOp Skin Prep Entry 1 Procedure Knee Total Joint Replacement(Right) Prescribed N/A Pre-Surgical Prep Completed Prep Area right thigh to toes circumferentially Intraop Prep Integumentary WDL Assessment WDL Prep Agents Chloraprep Prep by Tana Maynard RN Hair Removal Methods No hair removal performed Last Modified By: Tana Maynard RN 08/30/18 11:54:06 [facility] IntraOp Surgical Procedures Entry 1 Procedure Knee Total Joint Replacement Modifiers Right Additional RT TOTAL KNEE Procedure ARTHROPLASTY Description Primary Procedure Yes Primary Surgeon BEATRIZ RAWLS MD-ORT Start 08/30/18 12:44:00 Stop 08/30/18 14:36:00 Anesthesia Type General Specialty SN Orthopedic Wound Class I - Clean Last Modified By: Tana Maynard RN 08/30/18 11:54:12 [facility] IntraOp Surgical Procedures Audit 08/30/18 14:36:43 Consultant Rn: HAMILTGM Modifier: HAMILTGM <+> 1 Stop 08/30/18 12:46:05 Consultant Rn: HAMILTGM Modifier: HAMILTGM <+> 1 Start [facility] IntraOp Temp Regulation Devices Entry 1 Temp Regulation Temperature Warm blankets Regulation Device Temperature Upper body Regulation Site Temperature LARRY ADAIR CRNA Regulation Device Applied by Temperature bairhugger available Regulation Comment Last Modified By: Tana Maynard RN 08/30/18 11:54:34 [facility] IntraOP Time Out Entry 1 Procedure to [...] Modified By: Tana Maynard RN 08/30/18 12:45:54 [facility] IntraOP Time Out Audit 08/30/18 12:45:54 Consultant Rn: JOCELIN Modifier: HAMILTGM 1 <+> Time Out Pause Time 1 <*> Procedure to be Performed Knee Total Joint Replacement(Right) [facility] IntraOp Tourniquet Entry 1 Type Pneumatic Serial/Unit Number [id number] Setting 350 mmHg Pheumatic Yes Tourniquet Checked Per Protocol Size 34 inches Placement Thigh, right upper Skin Protection - Yes Padded Under Cuff Applied By BEATRIZ RAWLS MD-ORT Removed By BEATRIZ PEACE PA Times Start Time 08/30/18 12:44:00 Stop Time 08/30/18 14:36:00 Total Time 111 calculated manually (Mins) Last Modified By: Tana Maynard RN 08/30/18 14:36:38 [facility] IntraOp Tourniquet Audit 08/30/18 14:36:38 Consultant Rn: OLEGARIOILTGM Modifier: HAMILTGM 1 <*> Setting 300 mmHg 1 <+> Total Time calculated manually (Mins) 1 <+> Stop Time 08/30/18 12:46:04 Consultant Rn: OLEGARIOILTGM Modifier: HAMILTGM <+> 1 Start Time [...]
--- OUTSIDE RECORDS SUMMARY | 2025-05-23 11:40 | XMS_ITS | Encounter Summary ---
Author Organization [employer] ([place], [place], [place], [place], [place]) Address [address] [place] [address] Care Team Providers Care Golf Teacher Name Role Phone Unavailable Primary Care Provider Unavailabl e Encounter Details Date Type Department Care Team (Late st Contact Info) Description 08/31/2018 Transcribed Document [facility] [place] Family Medicine [facility] [place] [address] ProviderTree MD [address] [place] [address] Social History Tobacco Use Types Packs/Day [...] Tree Alonso MD - 08/31/2018 2:47 PM ANALYTICS DEVELOPER [address] [place] [address] Patient Copy Patient Information: Name: PETRA VILLALBA Current Date: 08/31/2018 14:47:08 : 1955 Patient Address: [address] [place] [id number] Patient Attending Physician: BEATRIZ RAWLS MD-ORT Primary Care Provider: BILL VENTURA MD-KATHLEEN Primary Care Provider Discharge Diagnosis: Weight on Admission: 224 lb, 0 oz Comment: Follow-up Instructions: With: Address: When: BEATRIZ RAWLS [address], [place] [id number] Business (1) 11:00 AM Discharge Instructions: Diet [...] incision site Medical Equipment for Home Use: [employer]--[phone] [facility][phone] Immunizations Documented During Stay: No Immunizations Found [...] nasal (fluticasone 50 mcg/inh nasal spray) 1 [place](s) Nostrils Both Every Day. fluticasone/umeclidinium/vilanterol (Trelegy Ellipta) [...] 10/23/2013 Document Revised: 07/19/2015 Document Reviewed: 06/13/2016 [employer] Interactive Patient Education ? 2017 FAD ? IO. Wound Infection Introduction A wound infection happens [...] instructions at home: Medicines??? Take or apply sucp-jgb-ifhcekl and prescription medicines only as told by [...] cannot use soap and water, use hand oracle identity management consultant. ? Change your bandage as told by [...] these instructions at home: Medicines ??? Take bluv-yum-cxhsknb and prescription medicines only as told by [...] cannot use soap and water, use hand oracle identity management consultant. ? Change your bandage as told by [...] 09/19/2012 Document Revised: 03/01/2017 Document Reviewed: 06/03/2016 [employer] Interactive Patient Education ? 2017 [employer] Medication Leaflets: tamsulosin (durant angeline FEROZ [...] may report side effects to FDA at 2-549-SEO-3713. What other drugs will affect tamsulosin? Tell [...] may affect tamsulosin. This includes prescription and eqqg-pkx-wvcnwvq medicines, vitamins, and herbal products. Not all [...] to ensure that the information provided by [employer]. ('[employer]') is accurate, up-to-date, and complete, but no guarantee is made to that effect. Drug information contained herein may be time sensitive. [employer] information has been compiled for use by healthcare practitioners and consumers in the [place] and therefore [employer] does not warrant that uses outside of the [place] are appropriate, unless specifically indicated otherwise. [employer]'s drug information does not endorse drugs, diagnose patients or recommend therapy. [employer] drug information is an informational resource designed [...] effective or appropriate for any given patient. [facility] does not assume any responsibility for any aspect of healthcare administered with the aid of information [facility] provides. The information contained herein is not intended to cover all possible uses, directions, precautions, warnings, drug interactions, allergic reactions, or adverse effects. If you have questions about the drugs you are taking, check with your doctor, nurse or pharmacist. Copyright 1393-4927 [facility] Version: 9.01. Revision Date: 06/06/2018. enoxaparin (ee [...] may report side effects to FDA at 3-155-QUQ-0792. What other drugs will affect enoxaparin? Tell [...] drugs may affect enoxaparin, including prescription and rqbo-elx-vtffgnl medicines, vitamins, and herbal products. Not all [...] to ensure that the information provided by [employer]. ('[employer]') is accurate, up-to-date, and complete, but no guarantee is made to that effect. Drug information contained herein may be time sensitive. [employer] information has been compiled for use by healthcare practitioners and consumers in the [place] and therefore [employer] does not warrant that uses outside of the [place] are appropriate, unless specifically indicated otherwise. [employer] drug information does not endorse drugs, diagnose patients or recommend therapy. [employer] drug information is an informational resource designed [...] effective or appropriate for any given patient. [employer] does not assume any responsibility for any aspect of healthcare administered with the aid of information [employer] provides. The information contained herein is not intended to cover all possible uses, directions, precautions, warnings, drug interactions, allergic reactions, or adverse effects. If you have questions about the drugs you are taking, check with your doctor, nurse or pharmacist. Copyright 7531-5834 [facility]. Version: .. Revision Date: 10/14/2017. acetaminophen and [...] may report side effects to FDA at 9-040-ZJU-2949. What other drugs will affect acetaminophen and [...] affect acetaminophen and oxycodone, including prescription and ijtj-sbk-easostx medicines, vitamins, and herbal products. Not all [...] to ensure that the information provided by [employer]. ('[employer]') is accurate, up-to-date, and complete, but no guarantee is made to that effect. Drug information contained herein may be time sensitive. [employer] information has been compiled for use by healthcare practitioners and consumers in the [place] and therefore [employer] does not warrant that uses outside of the [place] are appropriate, unless specifically indicated otherwise. [employer] drug information does not endorse drugs, diagnose patients or recommend therapy. [employer] drug information is an informational resource designed [...] effective or appropriate for any given patient. [employer] does not assume any responsibility for any aspect of healthcare administered with the aid of information [employer] provides. The information contained herein is not intended to cover all possible uses, directions, precautions, warnings, drug interactions, allergic reactions, or adverse effects. If you have questions about the drugs you are taking, check with your doctor, nurse or pharmacist. Copyright 1460-3851 [employer]. Version: 18.02. Revision Date: 06/08/2018. CIGARETTE SMOKING: The facts are clear, cigarette smoking will shorten your life. Smoking can cause many illnesses along the way. As a healthcare provider, we recommend that you stop smoking. Assistance with quitting is available by contacting 8-623-XIDM-NOW. This is a free resource providing counseling, [...] Be sure to sign up for the [employer] patient portal, which gives you 01/02 access to your medical information ??? including these discharge instructions ??? using your computer, smartphone, or tablet. Just go to [employer] to get started. Questions? Call . [facility] would like to thank you for allowing us to assist you with your healthcare needs. DEEJAY Pacheco BILL RAY, (or surgical device sales representative) have received the above patient education materials/instructions and have verbalized understanding: Patient Signature _ Date/Time Patient Link And Link Knitting Machine Operator Signature (if needed) Date/Time Clinician/Hospital Link And Link Knitting Machine Operator Signature (if needed) Date/Time Electronically signed by Amira [facility] Conversion Plumber Cub Justinner at 10/27/2022 8:07 PM CDT documented in this encounter Plan of Treatment Not on file documented as of this encounter Visit Diagnoses Not on filedocumented in this encounter
--- OUTSIDE RECORDS SUMMARY | 2025-05-23 11:40 | XMS_ITS | Clinical Summary ---
Author Organization [facility] Address [address] [place] [address] Phone [email or web address] Care Team Providers Care Bricklayer Apprentice Name Role Phone Handy Pennington Primary Care Provider [phone] Allergies No known active allergies Medications fluticasone [...] Insurance XIN IN COPAY 5 Care Teams Bricklayer Apprentice Relationship Specialty Start Date End Date Handy Pennington [address] [place] [id number] PCP - General General Surgery 09/11/19
--- OUTSIDE RECORDS SUMMARY | 2025-05-23 11:40 | XMS_ITS | Encounter Summary ---
Author Organization [facility] Address [address] [place] [address] Care Team Providers Care Drag Sawyer Name Role Phone Parrish Thurman MD Primary Care Provider + [phone] Reason for Visit * Reason Comments Med Refill Encounter Details Date Type Department Care Team ([facility] st Contact Info) Description 01/06/2025 Refill [facility] [address], [address] [place] [address] Hilario Burger MD [address] [place] [address] Vitamin D deficiency Social History [...] any time in the past 12 m [facility], were you homeless or living in a skilled nursing (including now)? 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 file Not on file Not on file documented as of this encounter Plan of Treatment Upcoming Encounters Date Type Department Care Team (Late st Contact Info) Description 05/28/2025 1:00 PM EST Office Visit Medical Office Building Surgery Spine & Joint [address], [address] [place] [address] Afshan Bryan MD [address] [place] [address] documented as of this encounter [...] documented as of this encounter Care Teams Drag Sawyer Relationship Specialty Start Date End Date Parrish Thurman MD [address] [place] [address] PCP - General 10/19/24 documented as of this encounter
--- OUTSIDE RECORDS SUMMARY | 2025-05-23 11:40 | XMS_ITS | Encounter Summary ---
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 ? Change your bandage as told by [...] these instructions at home: Medicines ??? 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 ? Change your bandage as told by [...] 09/19/2012 Document Revised: 03/01/2017 Document Reviewed: 06/03/2016 [employer] Patient Education ? 2017 [employer] Urology Plascencia Catheter Care, Adult A [...] 10/23/2013 Document Revised: 07/19/2015 Document Reviewed: 06/13/2016 [employer] Patient Education ? 2017 [employer] documented in this encounter Plan of Treatment Not on file documented as of this encounter Visit Diagnoses Not on filedocumented in this encounter
--- NOTE | 2025-05-23 12:23 | ECG_ITS ---
APPROVED REPORT Exam: Resting ECG HR:81 bpm ECG Measurements Heart Rate 81 AXES AL 159 P 61 QRSd 90 QRS -1 QT 373 T 20 QTc 411 Conclusion SINUS RHYTHM NORMAL ECG UNCONFIRMED REPORT Electronically signed by : Gerardo Yu MD 05/24/2025 13:09:08
[2025-05-23 12:51] LABS: Anion Gap 11.9 mEq/L (5-15); Blood Urea Nitrogen 15 mg/dl (9-20); Calcium 9.7 mg/dl (8.4-10.2); Carbon Dioxide 23 mmol/L (22.0-30.0); Chloride 109 mmol/L (98-107); Creatinine Clearance Estimated 109 mL/min (50-200); Creatinine,Serum 1.00 mg/dl (0.66-1.25); Estimated Glomerular Filt Rate 74 ml/min (>60); GFR (African American) 90 ML/MIN (>60); Glucose 88 mg/dl (74-100); Potassium 3.9 mmoL/L (3.5-5.1); Sodium 140 mmol/L (136-145)
[2025-05-23 12:58] LABS: Hematocrit 34.7 % (42.0-52.0); Hemoglobin 11.2 g/dL (14.1-18.0); Immature Granulocytes % 0.2 %; Mean Corpuscular HGB Conc 32.3 g/dL (31.8-35.4); Mean Corpuscular Hemoglobin 28.6 pg (27.0-31.2); Mean Corpuscular Volume 88.5 fl (80-94); Nucleated Red Blood Cells % 0 %; Platelet Count 90 K/mm3 (142-424); Red Blood Count 3.92 M/mm3 (4.60-6.20); Red Cell Distribution Width-SD 56.6 fL; White Blood Count 5.3 K/mm3 (4.8-10.8)
[2025-05-24 13:42] LABS: PSA, Free 1.40 ng/mL
== END 2025-05-23 23:59 | disposition home or self-care (01) ==
LOC: PREOP 11:33
PROVIDERS: Urology; PCP Family Medicine; Visit Provider Surgery
DX: Z01.810 Encounter for preprocedural cardiovascular examination (principal); Z01.812 Encounter for preprocedural laboratory examination; R97.20 Elevated prostate specific antigen [PSA]
CPT/HCPCS: 80048; 84153; 84154; 85025; 93005

== ENCOUNTER 2025-05-24 06:05 | Day surgery (SDC) | payer MEDICARE, SELFPAY ==
[2025-05-23 14:04] VITALS: BMI 36.5
[2025-05-24] VITALS (9 sets, daily range): BP systolic 118–155; BP diastolic 66–84; PULSE 75–93; RESP 16–18; TEMP 36.1–36.8; O2SAT 94–97; BMI 36.5
[2025-05-24] MEDS: 0.9 % SODIUM CHLORIDE 1000ML 1,000 ML 25 ML IV (06:48)
--- NOTE | 2025-05-24 06:53 | P.PNANES_ITS ---
[facility] Disclaimer: The information contained in this section may have been updated after the patient was seen, as this information can be updated by other users. Medical History History of multiple myeloma Elevated PSA History of back pain Asthma COPD (chronic obstructive pulmonary disease) Surgical History History of back surgery History of colonoscopy History of knee replacement Family History Other Family history of prostate cancer Social History Smoking Status: Current every day smoker tobacco type: smokeless tobacco alcohol intake: current alcohol intake frequency: a few times a month substance use type: denies use current occupational status: retired Travel in the last 8 weeks?: None housing: house Have you lived/traveled outside US in past 30 days?: No Contact w/someone who lives/traveled outside US past 30 days?: No Exposure to someone with infectious disease in past 14 days?: No Do you have a fever (greater than 100.4 F or 38 C)?: No Have you tested positive for COVID-19?: No Exposed to someone with COVID-19 in past 14 days?: No Do you have a sore throat?: No Do you have a cough?: No Do you have any weakness?: No Are you experiencing any nausea/vomitting?: No Do you have any diarrhea?: No Are you experiencing any unusual bleeding?: No Do you have any muscle aches/pain?: No Do you have any abdominal pain?: No Are you experiencing loss of taste or smell?: No [facility] Anesthesia Checklist Patient Identification Patient Identification: Arm Band Structural Data Admitted From: Home Planned Operative Procedure/s: Port-a-cath Placement Consent for Planned Operative Procedure(s) Verified: Yes Verified Documents: Surgical Consent and History and Physical NPO Status Verified Time NPO: 00:00 Additional verifications Anesthesia Reactions: Yes (Double vision x 6 months after last colonoscopy? Resolved) Hx Blood Transfusions: No Blood Transfusion Reaction: No Airway Assessment Mallampati Score:: Class II C-Spine Mobility Assessed: Yes TMJ Mobility Assessed: Yes Dentition: Good Dentition Neurological Assessment Level of Consciousness: Awake, Alert and Appropriate Anesthesia Plan Anesthesia Risk discussed: Yes Anesthesia Plan: Verified ASA Class: II Anesthesia Type: General
[2025-05-24] MEDS: CEFAZOLIN 2GM VIAL 2 GM (07:02)
[2025-05-24] MEDS: SODIUM CHLORIDE 0.9% 20ML VIAL 40 ML IV ×2 (07:35→08:13)
[2025-05-24] MEDS: LIDOCAINE 1% 20ML MDV 20 ML (07:36)
--- NOTE | 2025-05-24 08:17 | XR_ITS ---
FINAL REPORT CLINICAL HISTORY: PORT A CATH IN OR FT: 0:51 30.58 MGY COMPARISON: None FINDINGS: FLUOROSCOPY LESS THAN 1 HOUR HISTORY: FINDINGS: Fluoroscopic guidance was provided for Port-A-Cath placement. 3 spot films obtained. 51 seconds of fluoroscopy time were used with a dosage of 30.58 mGy. IMPRESSION: As above. Reviewed, Interpreted and Dictated by Lisbeth Eid MD Transcribed by Edwina Pro Authenticated and [facility]
[2025-05-24] MEDS: SODIUM CHLORIDE 0.9% 20ML VIAL 20 ML IV (08:22)
--- NOTE | 2025-05-24 08:44 | XR_ITS ---
FINAL REPORT CLINICAL HISTORY: s/p port placement COMPARISON: None FINDINGS: A single frontal view of the chest was obtained. There is mild left perihilar atelectasis or scar. The right lung is clear. Left chest port is present with the tip in the SVC. There is no pneumothorax. Mediastinum is unremarkable. Heart size is mildly enlarged. IMPRESSION: Left chest port in good position without pneumothorax. Reviewed, Interpreted and Dictated by Lisbeth Eid MD Transcribed by Mala Haynes Authenticated and [facility]
--- NOTE | 2025-05-24 08:44 | EXP.OP.NOTE ---
Date of procedure: 05/24/25 Pre-op Diagnosis:: Multiple myeloma Post-op Diagnosis:: Same Procedure performed:: Port-A-Cath placement Surgeon:: Diony Young MD Anesthesia: local and LMA Estimated blood loss (mL): 10 Operative findings:: Left subclavian vein access Catheter placement confirmed fluoroscopically Port flushed with heparinized saline Operative note:: After informed consent was obtained the patient was taken to the operating room and placed in the supine position. General anesthesia with laryngeal mask airway was achieved. The patient's upper chest and neck were prepped and draped in a sterile fashion. After infiltration with local anesthetic a large bore needle was utilized to access the left subclavian vein. A guidewire was placed in position. A transverse incision was made at the guidewire exit site. The underlying subcutaneous tissue was dissected to the fascial margin utilizing blunt dissection and electrocautery. This allowed for a pocket for the port hub. Utilizing modified Seldinger technique the catheter was placed in position and confirmed fluoroscopically. The catheter was cut to appropriate length and secured to the hub. The hub was then secured to the underlying fascia with interrupted Prolene suture. The deep subcutaneous tissue was reapproximated with interrupted Vicryl and skin was then closed with running 4-0 Monocryl in a subcuticular manner. Dressings were applied after the port was flushed with heparinized saline. Patient was transferred to recovery in stable condition after removal of his laryngeal mask airway. Condition: stable Disposition: PACU Specimens:: None Complications:: No immediate. Chest x-ray pending.
--- NOTE | 2025-05-24 08:54 | EXP.ANES.I ---
[facility] Anesthesia Record Part I Anesthesia Record I Intake, IV Amount: 900 Hydration: Adequate Estimated blood loss (mL): 10 Urine output (mL): 0 Blood Products used (#): none Blood Pressure: 118/66 SaO2: 96 Pulse Rate: 93 Airway Patency: Patent Respiratory Rate: 18 Temperature: 97.7 F Patient is:: Drowsy and Stable Stable to PACU at:: 08:48
--- NOTE | 2025-05-25 10:27 | P.PNANES_ITS ---
[facility] Anesthesia Record Part II Anesthesia Record Part II Discharge Time: 09:49 Destination: Surgical Day Care (OP Surgery) PACU nurse assessment reviewed?: Yes Patient Condition:: Good Anesthesia Complications:: None Swallowing reflex intact?: Yes Airway Patency: Patent Cyanosis?: No Blood Pressure: 155/81 SaO2: 96 Respiratory Rate: 18 Pulse Rate: 79 Temperature: 97.0 F Mental Status: Alert & Oriented Pain level:: 0 Nausea and/or vomitting:: None Intake, IV Amount: 0 Hydration: Adequate
[2025-05-25 10:28] VITALS: BP 155/81; PULSE 79; RESP 18; TEMP 36.1; O2SAT 96
== END 2025-05-24 09:49 | disposition home or self-care (01) ==
PROVIDERS: PCP Family Medicine; Visit Provider Surgery
PROC: (CPT 36561; principal; 2025-05-24 07:30)
DX: C90.00 Multiple myeloma not having achieved remission (principal); J44.89 Other specified chronic obstructive pulmonary disease; F17.290 Nicotine dependence, other tobacco product, uncomplicated; Z79.82 Long term (current) use of aspirin
CPT/HCPCS: 36561; 71045; 76000; 96374; C1788; J0690; J1100; J1642; J2003; J2405; J2704; J3010; J7030

== ENCOUNTER 2025-06-04 09:50 | Outpatient (CLI) | payer MEDICARE, SELFPAY ==
[2025-06-04] VITALS (7 sets, daily range): BP systolic 134–146; BP diastolic 69–79; PULSE 71–90; RESP 18; TEMP 36.5; O2SAT 95–97
[2025-06-04 10:24] LABS: Hematocrit 35.3 % (42.0-52.0); Hemoglobin 11.3 g/dL (14.1-18.0); Immature Granulocytes % 0.2 %; Mean Corpuscular HGB Conc 32.0 g/dL (31.8-35.4); Mean Corpuscular Hemoglobin 28.0 pg (27.0-31.2); Mean Corpuscular Volume 87.6 fl (80-94); Nucleated Red Blood Cells % 0 %; Platelet Count 212 K/mm3 (142-424); Red Blood Count 4.03 M/mm3 (4.60-6.20); Red Cell Distribution Width-SD 53.1 fL; White Blood Count 5.3 K/mm3 (4.8-10.8)
[2025-06-04 10:44] LABS: Alanine Aminotransferase 25 U/L (12-78); Albumin Level 4.2 g/dl (3.5-5.0); Albumin/Globulin Ratio 1.7 (1.1-1.8); Alkaline Phosphatase 88 U/L (38-126); Anion Gap 11.0 mEq/L (5-15); Aspartate Amino Transferase 34 U/L (17-59); Bilirubin,Total 0.7 mg/dl (0.2-1.3); Blood Urea Nitrogen 19 mg/dl (9-20); Calcium 9.9 mg/dl (8.4-10.2); Carbon Dioxide 23 mmol/L (22.0-30.0); Chloride 108 mmol/L (98-107); Creatinine,Serum 1.00 mg/dl (0.66-1.25); Estimated Glomerular Filt Rate 74 ml/min (>60); GFR (African American) 90 ML/MIN (>60); Globulin 2.5 g/dL (1.3-3.2); Glucose 110 mg/dl (74-100); Potassium 4.0 mmoL/L (3.5-5.1); Sodium 138 mmol/L (136-145); Total Protein,Serum 6.7 g/dl (6.3-8.2)
[2025-06-04] MEDS: DEXAMETHASONE 4MG TABLET 40 MG PO (11:35)
[2025-06-04] MEDS: SODIUM CHLORIDE 0.9% 500ML BAG 500 ML IV (11:45)
[2025-06-04] MEDS: DEX 5% IN WATER 100ML IVPB 100 ML IV (12:25)
[2025-06-04] MEDS: SODIUM CHLORIDE 0.9% 10ML FLUSH SYRINGE 10 ML IV (13:55)
[2025-06-05 15:18] LABS: Albumin 3.4 g/dL (2.9-4.4); Alpha-1-Globulin 0.3 g/dL (0.0-0.4); Alpha-2-Globulin 0.8 g/dL (0.4-1.0); Gamma Globulin 0.4 g/dL (0.4-1.8)
[2025-06-08 11:22] LABS: Immunoglobulin A, Qn 52 mg/dL (61-437); Immunoglobulin G, Qn 469 mg/dL (603-1613); Immunoglobulin M, Qn 16 mg/dL (20-172)
[2025-06-08 13:40] LABS: PDF SCANNED IMAGE
== END 2025-06-04 23:59 | disposition home or self-care (01) ==
PROVIDERS: PCP Family Medicine; Visit Provider Internal Medicine Medical Oncology
DX: C90.00 Multiple myeloma not having achieved remission (principal); Z51.11 Encounter for antineoplastic chemotherapy
CPT/HCPCS: 80053; 82784; 83521; 84155; 84165; 85025; 86334; 96409; J1642; J7040; J8540; J9047

== ENCOUNTER 2025-06-11 09:51 | Outpatient (CLI) | payer MEDICARE, SELFPAY ==
--- OUTSIDE RECORDS SUMMARY | 2025-05-28 13:00 | XMS_ITS | Encounter Summary ---
Author Organization [facility] Address [address] [place] [address] Care Team Providers Care Director Gift Name Role Phone Parrish Thurman MD Primary Care Provider + [phone] Reason for Visit * Reason Comments Follow-up Follow-up Encounter Details Date Type Department Care Team ([facility] Contact Info) Description 05/28/2025 1:00 PM EST Office Visit Medical Office Building Surgery Spine & Joint [address], [address] [place] [address] Afshan Bryan MD [address] [place] [address] S/P spinal fusion (Primary Dx); [...] any time in the past 12 m [facility], were you homeless or living in a usp (including now)? 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 Tobacco [...] disease) Hypertension Joint pain Monoclonal gammopathy IgG [place] Multiple myeloma 10/27/2024 [place] [employer] restricted Sleep apnea inconsistent diagnosis [...] tablet by mouth daily. 30 tablet 11 Qraybsatpwk-Kgonhiwta-Cttacr (Trelegy Ellipta) 100-62.5-25 MCG/ACT aerosol powder Inhale [...] & Joint [address] [facility] [address], [address] [place] [address] Afshan Bryan MD [address] [place] [address] documented as of this encounter [...] anterolisthesis at L3-L4 and minimal posterior subluxation [id number] and T12-L1. CRITICAL RESULT: No. COMMUNICATION: Per [...] documented as of this encounter Care Teams Director Gift Relationship Specialty Start Date End Date Parrish Thurman MD [address] [place] [address] [place] [address] PCP - General 10/19/24 documented as of this encounter
--- OUTSIDE RECORDS SUMMARY | 2025-05-28 13:15 | XMS_ITS | Encounter Summary ---
Author Organization Healthcare Address [address] [place] [address] Care Team Providers Care Operations Director Name Role Phone Parrish Thurman MD Primary Care Provider + [phone] Encounter Details Date Type Department Care Team (Latest Contact Info) Description 05/28/2025 1:15 PM EST - 05/28/2025 11:59 PM [facility] Hospital Encounter Medical Office Building Radiology [address] [place] [address] S/P spinal fusion; Chronic midline [...] any time in the past 12 m [facility], were you homeless or [...] drink first t kiet in the morning (EYE-MOTORBOAT MECHANIC INBOARD/OUTBOARD) to steady your nerves or to get [...] Start Date Job End Date 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 [...] Joint [address] [facility], [address] [place] [address] Afshan Bryan MD [address] [facility] [facility] [address] [place] [address] documented as of this encounter [...] anterolisthesis at L3-L4 and minimal posterior subluxation [id number] and T12-L1. CRITICAL RESULT: No. COMMUNICATION: Per [...] documented as of this encounter Care Teams Operations Director Relationship Specialty Start Date End Date Parrish Thurman MD [facility] [place] [address] PCP - General 10/19/24 documented as of this encounter
[2025-06-11 09:53] VITALS: BMI 36.1
--- OUTSIDE RECORDS SUMMARY | 2025-06-11 09:57 | XMS_ITS | Encounter Summary ---
Author Organization [employer] ([place], [place], [place], [place], [place]) Address [address] [place] [address] Care Team Providers Care Technical Consultant Name Role Phone Unavailable Primary Care Provider Unavailabl e Encounter Details Date Type Department Care Team (Late st Contact Info) Description 08/31/2018 Transcribed Document [facility] Family Medicine [facility] [place] [address] ProviderTree MD [address], [place] [id number] Social History Tobacco Use Types Packs/Day Years [...] - Tree ProviderMD - 08/31/2018 4:06 PM SKI BASE TRIMMER Discharge Summary, PT Entered On: 08/31/2018 16:07 [...] CARLOS CASTILLO, PT - 08/31/2018 16:06 EST Care Home Goals Mobility/Bed Mobility LTG PT Grid Goal [...]
--- OUTSIDE RECORDS SUMMARY | 2025-06-11 09:57 | XMS_ITS | Encounter Summary ---
Author Organization [employer] ([place], [place], [place], [place], [place]) Address [address] [place] [address] Care Team Providers Care Guest Request Runner Name Role Phone Unavailable Primary Care Provider Unavailabl e Encounter Details Date Type Department Care Team (Late st Contact Info) Description 08/31/2018 Transcribed Document [facility] Family Medicine [address] [place] [address] ProviderTree MD [address] [place] [id number] Social History Tobacco Use Types Packs/Day Years [...] Tree Alonso MD - 08/31/2018 7:20 AM MANUFACTURING ENGINEERING INTERN Patient: PETRA VILLALBA Age: 62 years Sex: Male : 1955 Associated Diagnoses: None Author: BEATRIZ RAWLS MD-ORT Had trouble urinating, litlte placed and still in. WIll start on flomax, send home with little and have him see urologist. documented in this encounter Plan of Treatment Not on file documented as of this encounter Visit Diagnoses Not on filedocumented in this encounter
--- OUTSIDE RECORDS SUMMARY | 2025-06-11 09:57 | XMS_ITS | Encounter Summary ---
Author Organization [employer] ([place], [place], [place], [place], [place]) Address [address] [place] [address] Care Team Providers Care Senior Supply Chain Analyst Name Role Phone Unavailable Primary Care Provider Unavailabl e Encounter Details Date Type Department Care Team (Late st Contact Info) Description 08/30/2018 Transcribed Document [facility] [place] [facility] [place] [address] ProviderTree MD [facility] [place] [id number] Social History Tobacco Use Types Packs/Day Years [...] - Tree ProviderMD - 08/30/2018 6:23 AM EMBLEM CUTTER Admission History, Adult Entered On: 08/30/2018 18:55 [...] Ambulatory Legal Guardian : Spouse Support Person/Patient Filer Repairer : Yes Support Person/Pt Rep Name : Wellington Howell - Support Person/Pt Rep Contact Information : [phone] Want Family/Rep/Phys Notified of Admit : No Emergency Contact #1 : Wellington Lynda Emergency Contact #1 Emergency Contact #1 Relationship : Emergency Contact #2 : na Emergency Contact #2 Phone Number : na Emergency Contact #2 Relationship : na Information Obtained From : Patient Primary Language : Yi Preferred Communication Mode : Verbal Communication Barrier [...] Level : 46 or > High Risk [place] Fall Interventions : Adequate lighting, Assistive devices [...] Source : Measured Height Entry Format : [place] Height, Feet : 5 ft(Converted to: 152 cm, 60 Inch) Height, Inches : 8.5 Inch(Converted to: 0 ft 9 Inch, 21.59 cm) Clinical Height : 173.99 cm Weight Source : Standing scale Weight Entry Format : [place] Clinical Dosing Weight : 101.82 kg Weight, Pounds : 224 lb Weight, Ounces : 0 oz Body Surface Area (BSA) : 2.16 m2 Body Mass Index : 33.6 kg/m2 (HI) [place] Body Weight : 69 kg Xochilt Ba [...] 08/30/2018 18:47 EST Electronically signed by Amira [facility] Conversion Awning Frame Maker Cerner at 10/27/2022 8:15 PM CDT documented in this encounter Plan of Treatment Not on file documented as of this encounter Visit Diagnoses Not on filedocumented in this encounter
--- OUTSIDE RECORDS SUMMARY | 2025-06-11 09:57 | XMS_ITS | Encounter Summary ---
Author Organization [employer] ([place], [place], [place], [place], [place]) Address [address] [place] [address] Care Team Providers Care Bank Boss Name Role Phone Unavailable Primary Care Provider Unavailabl e Encounter Details Date Type Department Care Team (Late st Contact Info) Description 08/30/[address] 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 Name: PETRA VILLALBA D.O.B./Sex: 1955 Male Med Rec #: [id number] Physician: BEATRIZ RAWLS MD-ORYuko Financial #: [id number] Pt. Type: O Room/Bed: 648/1 Admit/Disch: 08/30/18 06:24:00 - Institution: [facility] Main OR PACU I Case Times Entry 1 In PACU I 08/30/18 14:52:00 Ready for PACU 08/30/18 15:45:00 Discharge Discharge from PACU 08/30/18 17:53:00 I Last Modified By: PAUL PEARSON RN 08/30/18 17:39:47 [facility] Main OR PACU I Case Times Audit 08/30/18 18:52:48 Butcher'S Assistant: NISHA Modifier: NISHA <+> 1 Discharge from PACU I [facility] Main OR PACU Acuity Entry 1 Start Time 08/30/18 15:45:00 Stop Time 08/30/18 17:53:00 Acuity Level [facility] PACU Acuity I Last Modified By: PAUL PEARSON RN 08/30/18 18:52:57 Finalized By: PAUL PEARSON, RN Document Signatures Signed By: PAUL PEARSON RN 08/30/18 18:53 Electronically signed by Amira [facility] Conversion Grease Cup Filler Cerner at 10/27/2022 8:25 PM CDT documented in this encounter Plan of Treatment Not on file documented as of this encounter Visit Diagnoses Not on filedocumented in this encounter
--- OUTSIDE RECORDS SUMMARY | 2025-06-11 09:57 | XMS_ITS | Encounter Summary ---
Author Organization Healthcare Address [address] [place] [address] Care Team Providers Care Seat Joiner Chainstitch Name Role Phone Handy Pennington MD Primary Care Provider + [phone] Parrish Thurman MD Primary Care Provider + [phone] Encounter Details Date Type Department Care Team (Late st Contact Info) Description 07/10/2024 Orders Only External Location [address] [place] [address] Provider, External Social History Tobacco Use Types Packs/Day Years Used Date Smoking Tobacco: Former Sex and Gender Information Value Date Recorded Sex Assigned at Not on file Legal Sex Male 7:35 PM EDT Gender Identity Not on file Sexual Orientation Not on file documented as of this encounter Plan of Treatment Upcoming Encounters Date Type Department Care Team (Late st Contact Info) Description 12/07/2025 1:00 PM EDT Office Visit Medical Office Building [facility] [address], [address] [place] [address] Afshan Bryan MD [address] [place] [address] documented as of this encounter Procedures Procedure Name Priority Date/Time Associated Diagnosis Comments MR THORACIC OUTSIDE IMAGES 07/10/2024 5:16 PM EST documented in this encounter Results * MR THORACIC OUTSIDE IMAGES (07/10/2024 5:16 PM EST) Anatomical Region Laterality Modality Magnetic Resonan ce 07/10/2024 5:16 PM EST us External Provider IMG MRI PROCEDURES Edited Resu lt - Final documented in this encounter Visit Diagnoses Not on filedocumented in this encounter Care Teams Seat Joiner Chainstitch Relationship Specialty Start Date End Date Handy Pennington MD [address] [place] [address] PCP - General 11/22/20 10/18/24 Parrish Thurman MD [address] [place] [address] PCP - General 10/19/24 documented as of this encounter
--- OUTSIDE RECORDS SUMMARY | 2025-06-11 09:57 | XMS_ITS | Encounter Summary ---
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 Patient: PETRA VILLALBA Age: 62 years Sex: [...] Refill(s) fluticasone 50 mcg/inh nasal spray: 1 [place], Nostrils Both, Daily, 0 Refill(s) hydroCHLOROthiazide-triamterene 25 [...] Daily fluticasone 50 mcg/inh nasal spray 1 [place], Nostrils Both, Daily hydroCHLOROthiazide-triamterene 25 mg-37.5 mg [...] All Problems Wears glasses / SNOMED CT 987518163 / Confirmed Sinusitis / SNOMED CT 92254452 / Confirmed Hyperlipidemia / SNOMED CT 85937054 / Confirmed High blood pressure / SNOMED CT 15973613 / Confirmed GERD - Gastro-esophageal reflux disease / SNOMED CT 8527437276 / Confirmed Shortness of breath with exercise / SNOMED CT 615582324 / Confirmed Back pain / SNOMED CT 7761135744 / Confirmed At risk for sleep apnea / IMO 82207449 / Confirmed Asthma / SNOMED CT 671639324 / Confirmed Arthritis / SNOMED CT 8457138 / Confirmed Allergic rhinitis / SNOMED CT 535862265 / Confirmed, Active Problems (11) Allergic rhinitis [...] painful ROM R knee. Integumentary: Warm, Dry, [place]. Neurologic: Alert, Oriented. Psychiatric: Cooperative, Appropriate mood [...] LOW . Impression and Plan Condition: Stable. Electronically signed by Adaldi Collier Conversion Prison Classification Counselor Cerner at 10/27/2022 8:08 PM CDT documented in this encounter Plan of Treatment Not on file documented as of this encounter Visit Diagnoses Not on filedocumented in this encounter
--- OUTSIDE RECORDS SUMMARY | 2025-06-11 09:57 | XMS_ITS | Referral Summary ---
Author Organization [employer] ([place], [place], [place], [place], [place]) Address [address] [place] [address] Care Team Providers Care Cut Off Saw Grader Name Role Phone Unavailable Primary Care [...]
--- OUTSIDE RECORDS SUMMARY | 2025-06-11 09:57 | XMS_ITS | Clinical Summary ---
Author Organization [facility] Address [address] [place] [address] Care Team Providers Care Tight Barrel Inspector Name Role Phone Parrish Thurman MD Primary Care Provider + [phone] Allergies Active Allergy Reactions Criticality Noted Date [...] a day. 28 tablet 10/29/19 25 Active prochlorperazine (Compazine) 10 MG tabletIndications [...] mouth daily. 30 tablet 11 01/26/20 25 2025 Active irbesartan-hydroC HLOROthiazide (Avalide) 150-12.5 MG tablet [...] CHEW. 60 tablet 1 05/15/20 25 Active oxyCODONE (Roxicodone) 5 MG immediate release tablet Take 1 tablet by mouth every 6 hours as needed for severe pain. 30 tablet 05/28/20 25 Active oxyCODONE (Roxicodone) 5 MG immediate release tablet Take 1 tablet by mouth every 6 hours as needed for moderate pain or severe pain. 30 tablet 11/07/19 25 2024 Discontinued(R eorder) potassium chloride CR (Klor-Con M20) 20 MEQ ER tablet Take 1 tablet by mouth 2 times a day. Do not crush or chew. 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(Fzea-3-nqsyryoxbywss (mg/L): 7.7, Albumin (g/dL): 3.6, ISS: Stage [...] 09/08/2010 Monoclonal gammopathy 10/27/2024 Overview (11/10/2024): IgG Nabesna Resolved Problems Problem Noted Date Diagnosed Date Resolved Date Chronic obstructive pulmonar y disease with acute lower respiratory infection 01/25/20252024 COPD (chronic obstructive pu lmonary disease) with acute bronchitis 05/13/2016 04/01/2025 Encounters Date Type Department Care Team Description 05/28/2025 1:15 PM EST - 05/28/2025 11:59 PM EST Hospital Encounter Medical Office Building Radiology [address] [place] [phone] S/P spinal fusion; Chronic midline thoracic back pain Discharge Disposition: Home or Self Care 05/28/2025 1:00 PM EST Office Visit Medical Office Building [facility] [address], [address] [place] [address] Afshan Bryan MD S/P spinal fusion (Primary Dx); Chronic midline thoracic back pain 05/28/2025 Travel 05/15/2025 Refill [facility] [address] [phone] Mohit Villarreal MD 04/27/2025 Refill [facility] [address] [phone] Mohit Villarreal MD Multiple myeloma not having achieved remission (CMS/HCC) 04/26/2025 Telephone [facility] [address] [place] [address] Victorina Hurt, PharmD 04/18/2025 Telephone [facility] [address] [phone] Mohit Villarreal MD 04/05/2025 2:00 PM EDT - 04/05/2025 11:59 PM EDT Hospital Encounter [facility] [address] [place] [address] Multiple myeloma, remission status unspecified (CMS/HCC) (Primary Dx) Discharge Disposition: Home or Self Care 04/05/2025 Travel 03/27/2025 Orders Only [facility] [address] [phone] Natalie Andrews, RN Multiple myeloma, remission status unspecified (CMS/HCC) (Primary Dx) 03/27/2025 Refill [facility] [address] [phone] Mohit Villarreal MD Multiple myeloma not having achieved remission (CMS/HCC) 03/23/2025 Orders Only [facility] [address] [place] [address] Natalie Andrews RN Multiple myeloma, remission status unspecified (CMS/HCC) (Primary Dx) 03/22/2025 10:28 AM EDT - 03/22/2025 11:59 PM EDT Hospital Encounter [facility] [address] [place] [address] Multiple myeloma, remission status unspecified (CMS/HCC) (Primary Dx) Discharge Disposition: Home or Self Care 03/22/2025 9:00 AM EDT Office Visit [facility] [address] [phone] Mohit Villarreal MD Multiple myeloma, remission status unspecified (CMS/HCC) (Primary Dx); Multiple myeloma not having achieved remission (CMS/HCC); Age-related osteoporosis without current pathological fracture 03/22/2025 8:30 AM EDT Clinical Support [facility] [address] [phone] Ginger Menjivar RN 03/22/2025 Travel 03/21/2025 Orders Only [facility] [address] [place] [phone] Natalie Andrews RN Multiple myeloma not having achieved remission (CMS/HCC) (Primary Dx) 03/19/2025 Refill [facility] [address] [place] [phone] Mohit Villarreal MD Multiple myeloma not having achieved remission (CMS/HCC) 03/19/2025 Telephone [facility] [address] [place] [phone] Mohit Villarreal MD from Last 3 Months Immunizations Immunization Administration [...] any time in the past 12 m [facility], were you homeless or living in [...] drink first t kiet in the morning (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 file Not on file Not on file Last Filed Vital Signs Vital Sign Reading Time Taken Comments Blood Pressure 160/89 05/28/2025 12:58 PM EST Pulse 87 05/28/2025 12:58 PM EST Temperature 36.7 C (98.1 F) 04/05/2025 2:14 PM EDT Respiratory Rate 16 04/05/2025 2:14 PM EDT Oxygen Saturation 97% 05/28/2025 12:58 PM EST Inhaled Oxygen Concentration - - Weight 114 kg (251 lb 8.7 oz) 05/28/2025 12:58 P M EST Height 172.7 cm (5' 8 ) 05/28/2025 12:58 PM EST Body Mass Index 38.25 05/28/2025 12:58 PM EST Plan of Treatment Upcoming Encounters Date Type Department Care Team (Late st Contact Info) Description 12/07/2025 1:00 PM EDT Office Visit Medical Office Building Surgery [facility] [address], [address] [place] [address] Afshan Bryan MD [address] [place] [address] Health Maintenance Due Date Last [...] (2 - Td or Tdap) 08/17/2023 08/17/2013 [id number] Vaccine ( season) 2025 06/19/2024, 06/02/2023, 05/14/2022, Additional history exists [facility]-Influenza Vaccine (#1) 03/12/202504/28, 03/23/2023, 05/14/2022, Additional history exists [facility]- SDOH Screenings 03/17/2025 [facility]-Adult SDOH Screenings 03/17/2025 09/14/2024 [facility]-Depression Screening 12/14/2025 12/14/2024 [facility]-Pneumococcal Vaccine: 50+ Years Completed 05/14/2022, 02/07/2017 [facility]-RSV Vaccine: 60+ Years or Completed 03/23/2023 [facility]-Obesity Intervention Completed 025, 03/22/2025, 03/08/2025, Additional history exists HPV Vaccines Aged Out [...] Garcias MD Medical Devices Implanted Type Area Retail Coordinator Device Identifier Shelf Expiration Date Model / Serial / Lot Knee Knee Right: Knee Jacinto Viper2 Straight 400mm - [id number] Implanted:Qty: 1 on 09/14/2024 by Rajiv Garcias MD at [facility] Jacinto N/A: Spine Thoracic [employer]-[id number] 09/15/2024 [id number] / / Chip Bone 20cc - [id number] - [id number] Implanted:Qty: 1 on 09/14/2024 by Rajiv Garcias MD at [facility] N/A: Spine Thoracic [facility]-[id number] 05/25/2029 PCAN1/4 / [id number] / [id number] Matrix Fibergraft Bg Lg 12.5cc - [id number] Implanted:Qty: 1 on 09/14/2024 by Rajiv Garcias MD at [facility] N/A: Spine Thoracic [employer] LP-[id number] 12/16/2026 [id number] / / [id number] Screw 5.5mm Expedium Verse Fen 5mm X 35mm - [id number] Implanted:Qty: 2 on 09/14/2024 by Rajiv Garcias MD at [facility] N/A: Spine Thoracic [employer] LP-[id number] 09/15/[id number] / / Screw 5.5mm Expedium Verse Fen 5mm X 40mm - [id number] Implanted:Qty: 2 on 09/14/2024 by Rajiv Garcias MD at [facility] N/A: Spine Thoracic [employer] LP-568514 09/15/[id number] / / Screw 5.5mm Expedium Verse Fen 5mm X 45mm - [id number] Implanted:Qty: 2 on 09/14/2024 by Rajiv Garcias MD at [facility] N/A: Spine Thoracic [employer] LP-[id number] 09/15/[id number] / / Screw 5.5mm Expedium Verse Fen 6mm X 45mm - [id number] Implanted:Qty: 2 on 09/14/2024 by Rajiv Garcias MD at [facility] N/A: Spine Thoracic [employer] LP-[id number] 09/14/[id number] / / Screw Set 5.5mm Expedium Verse Unitized - [id number] Implanted:Qty: 8 on 09/14/2024 by Rajiv Garcias MD at [facility] N/A: Spine Lumbar [employer] LP-[id number] 09/14/[id number] / / Matrix Fibergraft Bg Medium 6.25cc - [id number] Implanted:Qty: 1 on 10/25/2024 by Rajiv Garcias MD at [facility] Spine Lumbar [employer] LP-[id number] 05/25/2027 [id number] / / [id number] Confidence Spinal Cement System Plus 11cc - [id number] Implanted:Qty: 1 on 10/25/2024 by Rajiv Garcias MD at [facility] N/A: Spine Lumbar [employer] LP-[id number] 05/11/2026 [id number] / / [id number] Screw 5.5mm Expedium Verse Fen 6mm X 45mm - [id number] Implanted:Qty: 4 on 10/25/2024 by Rajiv Garcias MD at [facility] N/A: Spine Lumbar [employer] LP-810645 10/25/2025 [id number] / / Screw Set 5.5mm Expedium Verse Unitized - [id number] Implanted:Qty: 10 on 10/25/2024 by Rajiv Garcias MD at [facility] N/A: Spine Lumbar [employer] LP-745537 10/25/2025 [id number] / / Jacinto Viper2 Straight 480mm - [id number] Implanted:Qty: 1 on 10/25/2024 by Rajiv Garcias MD at [facility] N/A: Spine Lumbar [employer] LP-121715 10/25/2025 [id number] / / Chip Bone 40cc - [id number] - [id number] Implanted:Qty: 1 on 10/25/2024 by Rajiv Garcias MD at [facility] Spine Lumbar [facility]-020039 08/24/2029 PCAN1/2 / [id number] / [id number] Procedures Procedure Name Priority Date/Time Associated Diagnosis Comments XR SCOLIOSIS ENTIRE SPINE 2 OR 3 VIEWS Routine 05/28/2025 1:30 PM EST S/P spinal fusion Chronic midline thoracic back pain CBC WITH AUTO DIFFERENTIAL Routine 04/05/2025 2:20 [...] (CMS/HCC) from Last 3 Months Results * XR Scoliosis Entire Spine 2 [...] anterolisthesis at L3-L4 and minimal posterior subluxation [id number] and T12-L1. CRITICAL RESULT: No. COMMUNICATION: Per this written report. Drafted by Tenzin Hodge MD on 05/28/2025 1:39 PM Final report signed by Tenzin Hodge MD on 05/28/2025 1:44 PM us Heladio SAHU IMG XR PROCEDURES Final Resul t * (ABNORMAL) CBC and differential (04/05/2025 2:20 PM EDT) Only the most recent of2 resultswithin the time period is included. WBC Count 4.72 3.70 - 10.30 10*3/uL LAB HEMATOLOGY METHOD 04/05/2025 4:07 PM EDT [facility] RBC Count 3.80(L) 4.60 - 6.10 10*6/uL LAB HEMATOLOGY METHOD 04/05/2025 4:07 PM EDT [facility] HGB 10.8(L) 13.7 - 17.5 g/dL LAB HEMATOLOGY METHOD 04/05/2025 4:07 PM EDT [facility] HCT 33.6(L) 40.0 - 51.0 % LAB HEMATOLOGY METHOD 04/05/2025 4:07 PM EDT [facility] Platelet Count 182 155 - 369 10*3/uL LAB HEMATOLOGY METHOD 04/05/2025 4:07 PM EDT [facility] MCV 88 79 - 98 fL LAB HEMATOLOGY METHOD 04/05/2025 4:07 PM EDT [facility] MCH 28.4 26.0 - 32.0 pg LAB HEMATOLOGY METHOD 04/05/2025 4:07 PM EDT [facility] MCHC 32.1 30.7 - 35.5 g/dL LAB HEMATOLOGY METHOD 04/05/2025 4:07 PM EDT [facility] RDW 18.9(H) 11.5 - 14.5 % LAB HEMATOLOGY METHOD 04/05/2025 4:07 PM EDT [facility] MPV 11.7 8.8 - 12.5 fL LAB HEMATOLOGY METHOD 04/05/2025 4:07 PM EDT [facility] nRBC 0.0 <=0.0 per 100 WBCs LAB HEMATOLOGY METHOD 04/05/2025 4:07 PM EDT [facility] Differential Type Automated LAB HEMATOLOGY METHOD 04/05/2025 4:07 PM EDT [facility] Neutrophils % 32 % LAB HEMATOLOGY METHOD 04/05/2025 4:07 PM EDT [facility] Lymphocytes % 31 % LAB HEMATOLOGY METHOD 04/05/2025 4:07 PM EDT [facility] Monocytes % 29 % LAB HEMATOLOGY METHOD 04/05/2025 4:07 PM EDT [facility] Eosinophils % 6 % LAB HEMATOLOGY METHOD 04/05/2025 4:07 PM EDT [facility] Basophils % 2 % LAB HEMATOLOGY METHOD 04/05/2025 4:07 PM EDT [facility] Immature Granulocytes % 0 % LAB HEMATOLOGY METHOD 04/05/2025 4:07 PM EDT [facility] Neutrophils Absolute 1.50(L) 1.60 - 6.10 10*3/uL LAB HEMATOLOGY METHOD 04/05/2025 4:07 PM EDT [facility] Lymphocytes Absolute 1.48 1.20 - 3.90 10*3/uL LAB HEMATOLOGY METHOD 04/05/2025 4:07 PM EDT [facility] Monocytes Absolute 1.37(H) 0.30 - 0.90 10*3/uL LAB HEMATOLOGY METHOD 04/05/2025 4:07 PM EDT [facility] Eosinophils Absolute 0.29 0.00 - 0.50 10*3/uL LAB HEMATOLOGY METHOD 04/05/2025 4:07 PM EDT [facility] Basophils Absolute 0.07 0.00 - 0.10 10*3/uL LAB HEMATOLOGY METHOD 04/05/2025 4:07 PM EDT [facility] Immature Granulocytes Absolute 0.01 0.00 - 0.06 10*3/uL LAB HEMATOLOGY METHOD 04/05/2025 4:07 PM EDT [facility] Blood Venous blood specimen / Unknown Venipuncture / Unknown 04/05/2025 2:20 PM EDT 04/05/2025 2:45 PM EDT Narrative [facility] - 04/05/2025 4:07 PM EDT Therapeutic decision making should be based on absolute values, rather than percentages. us Mohit Villarreal MD LAB BLOOD ORDERABLES Final Result [facility] [address] [place] [address] * (ABNORMAL) Nabesna Lambda Quant Free Light Chains w/Ratio (03/22/2025 9:18 AM EDT) [place] Lambda Free Light Chain Ratio 42.24(H) 0.26 - 1.65 Ratio 03/24/2025 1:36 AM EDT [facility] Nabesna Quant Free Light Chains 431.70(H) 3.30 - 19.40 mg/L 03/24/2025 1:36 AM EDT [facility] Lambda Quant Free Light Chains 10.22 5.71 - 26.30 mg/L 03/24/2025 1:36 AM EDT [facility] Blood Venous blood specimen / Unknown Venipuncture / Unknown 03/22/2025 9:18 AM EDT 03/22/2025 9:36 AM EDT Narrative [facility] - 03/24/2025 1:36 AM EDT [...] with the testing laboratory. Test performed at [facility]. us Mohit Villarreal MD LAB BLOOD ORDERABLES Final Result Performing Organization Address City/[facility]/ZIP Co de Phone Number [facility] [address] [place] [address] * (ABNORMAL) Total Protein, Serum (03/22/2025 9:18 AM EDT) [facility] Total Protein 5.8(L) 6.2 - 7.7 g/dL 03/22/2025 10:19 AM EDT [facility] Blood Venous blood specimen / Unknown Venipuncture / Unknown 03/22/2025 9:18 AM EDT 03/22/2025 9:36 AM EDT Mohit Villarreal MD LAB BLOOD ORDERABLES Final Result Performing Organization Address City/[facility]/ZIP Co de Phone Number [facility] [address] [place] [address] * (ABNORMAL) Protein Electrophoresis, Serum (03/22/2025 9:18 AM EDT) Albumin Electrophoresis, Serum 3.6 3.6 - 4.7 g/dL 03/23/2025 1:46 AM EDT [facility] Alpha 1 Globulin Electrophoresis, Serum 0.3 0.2 - 0.4 g/dL 03/23/2025 1:46 AM EDT [facility] Alpha 2 Globulin Electrophoresis, Serum 0.7 0.5 - 0.9 g/dL 03/23/2025 1:46 AM EDT [facility] Beta 1 Globulin Electrophoresis, Serum 0.4 0.3 - 0.5 g/dL 03/23/2025 1:46 AM EDT [facility] Beta 2 Globulin Electrophoresis, Serum 0.3 0.2 - 0.5 g/dL 03/23/2025 1:46 AM EDT [facility] Gamma Globulin Electrophoresis, Serum 0.4(L) 0.6 - 1.5 g/dL 03/23/2025 1:46 AM EDT [facility] Interpretation, Serum Protein Electrophoresis Pathology report to follow. 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 A resident was involved in the service. I attest I examined the relevant preparations for the specimens and confirmed the diagnosis or interpretation. 03/23/2025 12:18 PM EDT [facility] Pathologist Signature, SPEP Reviewed by: Carol Miguel MD 03/23/2025 12:18 PM EDT [facility] LAB CP ASR DISCLAIMER Yes 03/23/2025 12:18 PM EDT [facility] Blood Venous blood specimen / Unknown Venipuncture / Unknown 03/22/2025 9:18 AM EDT 03/22/2025 9:37 AM EDT Mohit Villarreal MD LAB PATHOLOGY ORDERABLES Fi nal Result Performing Organization Address City/[facility]/ZIP Co de Phone Number [facility] [address] [place] [address] * (ABNORMAL) IG Profile (03/22/2025 9:18 AM EDT) IGA 43(L) 75 - 400 mg/dL 03/22/2025 10:42 AM EDT [facility] IGG 508(L) 720 - 1,589 mg/dL 03/22/2025 10:42 AM EDT [facility] IGM 14(L) 35 - 225 mg/dL 03/22/2025 10:42 AM EDT [facility] Blood Venous blood specimen / Unknown Venipuncture / Unknown 03/22/2025 9:18 AM EDT 03/22/2025 9:36 AM EDT us Mohit Villarreal MD LAB BLOOD ORDERABLES Final Result Performing Organization Address City/[facility]/ZIP Co de Phone Number [facility] [address] [place] [address] * (ABNORMAL) Comprehensive metabolic panel (03/22/2025 9:18 AM EDT) Glucose, Plasma 112(H) 74 - 99 mg/dL 03/22/2025 10:25 AM EDT [facility] BUN, Plasma 14 8 - 23 mg/dL 03/22/2025 10:25 AM EDT [facility] Creatinine, Plasma 1.01 0.70 - 1.20 mg/dL 03/22/2025 10:25 AM EDT [facility] BUN/Creatinine Ratio 14 03/22/2025 10:25 AM EDT [facility] Sodium, Plasma 143 136 - 145 mmol/L 03/22/2025 10:25 AM EDT [facility] Potassium, Plasma 3.7 3.6 - 4.9 mmol/L 03/22/2025 10:25 AM EDT [facility] Chloride, Plasma 108(H) 97 - 107 mmol/L 03/22/2025 10:25 AM EDT [facility] CO2, Plasma 20(L) 22 - 29 mmol/L 03/22/2025 10:25 AM EDT [facility] Anion Gap 15 6 - 16 mmol/L 03/22/2025 10:25 AM EDT [facility] Total Calcium, Plasma 9.2 8.9 - 10.2 mg/dL 03/22/2025 10:25 AM EDT [facility] Total Protein 6.2(L) 6.3 - 7.9 g/dL 03/22/2025 10:25 AM EDT [facility] Albumin, Plasma 3.9 3.5 - 5.2 g/dL 03/22/2025 10:25 AM EDT [facility] AST, Plasma 25 10 - 50 U/L 03/22/2025 10:25 AM EDT [facility] ALT, Plasma 19 10 - 50 U/L 03/22/2025 10:25 AM EDT [facility] Alkaline Phosphatase, Plasma 90 40 - 115 U/L 03/22/2025 10:25 AM EDT [facility] Total Bilirubin, Plasma 0.7 0.2 - 1.1 mg/dL 03/22/2025 10:25 AM EDT [facility] eGFRcr 81.0 mL/min/1.7 3m*2 03/22/2025 10:25 AM EDT [facility] Comment:Reported eGFRcr in m L/min/1.73m2 is based the CKD-EPI 2020 equation that does not use a race coefficient. Blood Venous blood specimen / Unknown Venipuncture / Unknown 03/22/2025 9:18 AM EDT 03/22/2025 9:36 AM EDT us Mohit Villarreal MD LAB BLOOD ORDERABLES Final Result [facility] [address] [place] [address] from Last 3 Months Additional Health Concerns Active Problems Noted Date Diagnosed Date Autogenerated Problem 10/19/2024 Insurance [facility] MEDIC[facility] Advance Directives * Full Code (Latest [...] Patient has decision-making capacity? Yes Care Teams Tight Barrel Inspector Relationship Specialty Start Date End Date Parrish Thurman MD [address] [facility] [address] [place] [id number] PCP - General 10/19/24
--- OUTSIDE RECORDS SUMMARY | 2025-06-11 09:57 | XMS_ITS | Encounter Summary ---
Author Organization [employer] ([place], [place], [place], [place], [place]) Address [address] [place] [address] Care Team Providers Care Wellness Specialist Name Role Phone Unavailable Primary Care Provider Unavailabl e Encounter Details Date Type Department Care Team (Late st Contact Info) Description 08/30/2018 Transcribed Document [facility] [place] [address] [place] [address] ProviderTree MD [address] [place] [address] Social History Tobacco Use Types [...] Tree Alonso MD - 08/30/2018 12:44 PM WATCH ELECTRICIAN [facility] Main OR IntraOp Summary Primary Physician: BEATRIZ RAWLS MD-ORT Finalized Date/Time: 08/31/18 09:28:34 Pt. Name: PETRA VILLALBA RENETTA /Sex: 1955 Male Med Rec #: [id number] Physician: BEATRIZ RAWLS MD-ORT Financial #: [id number] Pt. Type: O Room/Bed: 648/1 Admit/Disch: 08/30/18 06:24:00 - Institution: [facility] IntraOp Case Attendance Entry 1 Entry 2 Entry 3 Case Attendee BEATRIZ RAWLS MD-ORT KESHEIMER, DAVID K, PA Summers, Jennifer, [employer] Pref Card Builder Role Performed Surgeon/Proceduralist, Physician title assistant Scrub, First First Time In 08/30/18 [...] Maynard, RN Gabriela Fabian, RN LARRY ADAIR, RURAL CARRIER ASSOCIATE Role Performed Bilingual Recruiter, First Bilingual Recruiter, Second RURAL CARRIER ASSOCIATE/Nurse Workforce Advisor Time In 08/30/18 12:12:00 08/30/18 12:12:00 08/30/18 [...] ANAHI ALAS MD OTHER, ATTENDEE Grady Tate, RURAL CARRIER ASSOCIATE Role Performed Anesthesiologist Vendor RURAL CARRIER ASSOCIATE/Nurse Workforce Advisor Time In 08/30/18 12:12:00 08/30/18 12:12:00 08/30/18 13:50:00 Time Out 08/30/18 14:50:00 08/30/18 14:50:00 08/30/18 14:50:00 Procedure Knee Total Joint Knee Total Joint Knee Total Joint Replacement(Right) Replacement(Right) Replacement(Right) Other Attendee tamar tan Superficial Wound Closed By: Last Modified By: Tana Maynard, RN Tana Maynard, RN Tana Maynard RN 08/30/18 14:50:09 08/30/18 11:46:42 08/30/18 14:50:09 [facility] IntraOp Case Attendance Audit 08/30/18 14:50:09 Sample Washer: HAMILTGM Modifier: HAMILTGM 1 <+> Time Out [...] Procedure Knee Total Joint Replacement(Right) 08/30/18 14:02:03 Sample Washer: HAMILTGM Modifier: HAMILTGM 1 <+> Time In [...] <+> 9 Time In <+> 9 Procedure [facility] IntraOp Case Times Entry 1 Patient In Room Time 08/30/18 12:12:00 Out Room Time 08/30/18 14:50:00 Anesthesia Start Time 08/30/18 12:12:00 Stop Time 08/30/18 14:50:00 Anesthesia Ready 08/30/18 12:12:00 Surgery / Procedure Times Start Time 08/30/18 12:44:00 Stop Time 08/30/18 14:36:00 Last Modified By: Tana Maynard RN 08/30/18 12:45:24 [facility] IntraOp Case Times Audit 08/30/18 14:50:07 Sample Washer: HAMILTGM Modifier: HAMILTGM <+> 1 Out Room Time <+> 1 Stop Time 08/30/18 14:36:41 Sample Washer: HAMILTGM Modifier: HAMILTGM <+> 1 Stop Time 08/30/18 12:45:28 Sample Washer: HAMILTGM Modifier: HAMILTGM 1 <*> Start Time 08/30/18 12:45:00 [facility] IntraOp Cautery Entry 1 ESU Identification Cautery Type Monopolar ESU ID Number [id number] ID Type Hospital Number Cautery Settings Cut Setting 50 Coag Setting 50 ESU Grounding Pad Ground Pad Type Adult Grounding Pad Site Right Flank Grounding Pad Tana Maynard RN Applied By Grounding Pad Site Warm, dry and intact Skin Condition Before Cautery Grounding Pad Site Unchanged Skin Condition After Cautery Last Modified By: Tana Maynard RN 08/30/18 11:47:37 [facility] IntraOp Communication Entry 1 Entry 2 Entry 3 Communication To Family/Significant other Other Family/Significant other Comment start report close Communication By Gabriela Fabian, Gabriela Ty RN Hamilton, Gina M, RN Date and Time 08/30/18 12:38:00 08/30/18 14:18:00 08/30/18 14:40:00 Last Modified By: Tana Maynard RN Hamilton, Gina M, RN Hamilton, Gina M, RN 08/30/18 12:46:33 08/30/18 14:18:15 08/30/18 14:50:38 [facility] IntraOp Communication Audit 08/30/18 14:50:38 Sample Washer: HAMILTGM Modifier: HAMILTGM <+> 3 Communication By <+> 3 Date and Time <+> 3 Communication To <+> 3 Comment 08/30/18 14:18:15 Sample Washer: HAMILTGM Modifier: HAMILTGM <+> 2 Communication By <+> 2 Date and Time <+> 2 Communication To <+> 2 Comment [facility] IntraOp Counts Verification Entry 1 Entry 2 [...] Performed By Shaneka Oakley Summers, Jennifer, (Scrub) [employer] Pref Card Builder [employer] Pref Card Builder Count Performed By Tana Maynard RN Hull, Tamara, RN (RN) Last Modified By: Tana Maynard RN Hamilton, Gina M, RN 08/30/18 11:47:51 08/30/18 14:11:48 [facility] IntraOp Counts Verification Audit 08/30/18 14:11:48 Sample Washer: HAMILTGM Modifier: HAMILTGM <+> 2 Procedure <+> 2 Count Type <+> 2 Counts Verification Sequence <+> 2 Count Results <+> 2 Count Performed By (Scrub) <+> 2 Count Performed By (RN) [facility] Intra[facility] Counts Final Entry 1 Procedure Knee Total Joint Replacement(Right) Final Count Info Count Type Sponge, Sharps, Miscellaneous Counts Verification Skin Closure/end of Sequence procedure Count Results Correct, surgeon notified Counts Performed By Count Performed By Shaneka Oakley, (Scrub) [employer] Pref Card Builder Count Performed By Tana Maynard RN (RN) Last Modified By: Tana Maynard RN 08/30/18 11:47:59 [facility] IntraOp Counts Final Audit 08/30/18 14:18:03 Sample Washer: HAMILTGM Modifier: HAMILTGM 1 <*> Procedure Knee Total Joint Replacement(Right) 1 <+> Count Performed By (Scrub) 1 <+> Count Performed By (RN) [facility] IntraOp Cultures and Spec Summary Entry 1 Cultrures and Specimens Specimen Ordered: Yes Specimens Types Pathology Specimen(s) Labeled Pathology and Sent to Last Modified By: Tana Maynard RN 08/30/18 11:48:16 General Comments: a. right knee bone fragments and tissue [facility] IntraOp Departure from OR Entry 1 Integumentary Assessment Integumentary WDL Assessment WDL Transfer/Handoff Transfer to PACU Phase I Handoff Method Phone call Post-op Transport Stretcher/Gurney Via Patient Transport BEATRIZ PEACE PA, Accompanied by LARRY ADAIR CRNA Last Modified By: Tana Maynard RN 08/30/18 11:48:34 [facility] IntraOp Dressing and Packing Entry 1 Type Dressing Location opsite Wound Dressing Item Skin Closure Glue, Joe Supplemental Limb immobilizer Applications Applied By BEATRIZ RAWLS MD-ORT Other Comments aquacel. Last Modified By: Tana Maynard RN 08/30/18 11:49:15 [facility] IntraOp Fire Risk Assessment Entry 1 Fire [...] Modified By: Tana Maynard RN 08/30/18 11:49:27 [facility] IntraOp General Case Rn Complex Care 1 Case Information OR OR 04 [facility] Case Level 1 Room Verified Yes Wound Class I - Clean Specialty SN Orthopedic Anesthesia Type General ASA Class 2 Diagnosis Preop Diagnosis oa - right knee Postop Same As Preop No Postop Diagnosis see doctor's post op notes Last Modified By: Tana Maynard RN 08/30/18 12:46:14 [facility] IntraOp General Case Data Audit 08/30/18 12:46:14 Sample Washer: JOCELIN Modifier: OLEGARIOILTGM <+> 1 ASA Class [facility] IntraOp Implant Log Entry 1 Entry 2 Entry 3 Type Implant (Synthetic) Implant (Synthetic) Implant (Synthetic) Implant Log Implant Type Bone Cement Hardware Hardware Tissue Implant Type Implant CEMENT BONE SURG SMPLX TIB CEMENTED STEM SZ F PATELLA RAY PERSONA Identification P [id number] Description Implant Quantity 2 1 1 Implant Site opsite opsite opsite Implant Identification Model Number Implant Identification Serial Number Implant [id number] Identification Lot Number Implant Crosby:Crosby Hernandez:Hernandez Us Hernandez:Hernandez Us Identification Orthopaedics Promotion Specialist Name: Implant [id number] Identification Catalog Number Implant Size Implant Has an Yes Yes Yes Expiration Date Implant Expiration 11/08/20 03/11/28 09/09/23 Date Wasted Radioactive Material Time Implanted Tissue Implant Continue for Tissue Implant Documentation Tissue Identification Number Graft Prep Per Promotion Specialist Instructions: Tissue Preparation Method: Reconstitution Solution: Reconstitution Solution Lot Number Reconstitution Solution Expiration Date: Thawing Solution Thawing Solution Lot Number Thawing Solution Expiration Date Preparation Materials, Other Preparation Materials, Other Lot Number Preparation Materials, Other Expiration Date Tissue Prepared/Processed By Promotion Specialist Paperwork Completed Implant Type Comment Last Modified By: Tana Maynard RN Hamilton, Gina M, Tana Avila RN 08/30/18 11:50:26 08/30/18 13:50:14 08/30/18 13:50:14 Entry 4 Entry 5 Type Implant (Synthetic) Implant (Synthetic) Implant Log Implant Type Hardware Hardware Tissue Implant Type Implant IMP KNEE FEM PSN CR CMT PSN ART SURF MC 10 Identification [id number] Description Implant Quantity 1 1 Implant Site opsite opsite Implant Identification Model Number Implant Identification Serial Number Implant [id number] Identification Lot Number Implant Hernandez:Hernandez Us Hernandez:Hernandez Us Identification Promotion Specialist Name: Implant [id number] Identification Catalog Number Implant Size Implant Has an Yes Yes Expiration Date Implant Expiration 10/10/27 04/10/23 Date Wasted Radioactive Material Time Implanted Tissue Implant Continue for Tissue Implant Documentation Tissue Identification Number Graft Prep Per Promotion Specialist Instructions: Tissue Preparation Method: Reconstitution Solution: Reconstitution Solution Lot Number Reconstitution Solution Expiration Date: Thawing Solution Thawing Solution Lot Number Thawing Solution Expiration Date Preparation Materials, Other Preparation Materials, Other Lot Number Preparation Materials, Other Expiration Date Tissue Prepared/Processed By Promotion Specialist Paperwork Completed Implant Type Comment Last Modified By: Tana Maynard RN Hamilton, Gina M, RN 08/30/18 13:50:14 08/30/18 14:04:53 [facility] IntraOp Implant Log Audit 08/30/18 14:04:53 Sample Washer: JOCELIN Modifier: BEVERLYTGM <+> 5 Implant Identification Description <+> 5 Implant Identification Lot Number <+> 5 Implant Identification Promotion Specialist Name: <+> 5 Implant Expiration Date <+> 5 Implant Site <+> 5 Implant Quantity <+> 5 Implant Identification Catalog Number <+> 5 Implant Type <+> 5 Implant Has an Expiration Date <+> 5 Type 08/30/18 13:50:14 Sample Washer: JOCELIN Modifier: BEVERLYTGM <+> 2 Implant Identification Description <+> 2 Implant Identification Lot Number <+> 2 Implant Identification Promotion Specialist Name: <+> 2 Implant Expiration Date <+> 2 Implant Site <+> 2 Implant Quantity <+> 2 Implant Identification Catalog Number <+> 2 Implant Type <+> 2 Implant Has an Expiration Date <+> 2 Type <+> 3 Implant Identification Description <+> 3 Implant Identification Lot Number <+> 3 Implant Identification Promotion Specialist Name: <+> 3 Implant Expiration Date <+> 3 Implant Site <+> 3 Implant Quantity <+> 3 Implant Identification Catalog Number <+> 3 Implant Type <+> 3 Implant Has an Expiration Date <+> 3 Type <+> 4 Implant Identification Description <+> 4 Implant Identification Lot Number <+> 4 Implant Identification Promotion Specialist Name: <+> 4 Implant Expiration Date <+> 4 Implant Site <+> 4 Implant Quantity <+> 4 Implant Identification Catalog Number <+> 4 Implant Type <+> 4 Implant Has an Expiration Date <+> 4 Type 08/30/18 13:42:36 Sample Washer: JOCELIN Modifier: BEVERLYTGLuis 1 <*> Implant Identification Description CEMENT BONE SURG SMPLX P [id number] <*> Implant Quantity 1 [facility] Intra[facility] Intraoperative Assessment Entry 1 Handoff Method [...] Modified By: Tana Maynard RN 08/30/18 11:50:42 [facility] IntraOp Intraoperative Equipment Entry 1 Type Equipment [...] Modified By: Tana Maynard RN 08/30/18 11:51:13 [facility] IntraOp Medication Admin Entry 1 Medication/Irrigant NORMAL SALINE Route of irrigation Administration Dose Dose 2000 Unit of Measure ml Volume 50ml betadine added Administered By BEATRIZ RAWLS MD-ORT Procedure Irrigation Last Modified By: Tana Maynard RN 08/30/18 11:51:46 [facility] IntraOp Patient Positioning Entry 1 Procedure Knee [...] Modified By: Tana Maynard RN 08/30/18 11:53:17 [facility] Intra[facility] Sign In Entry 1 Patient, Site, [...] Modified By: Tana Maynard RN 08/30/18 12:45:43 [facility] Intra[facility] Sign Out Entry 1 RN Confirmation [...] Modified By: Tana Maynard RN 08/30/18 11:53:41 [facility] Intra[facility] Sign Out Audit 08/30/18 14:50:17 Sample Washer: HAMILTGM Modifier: HAMILTGM <+> 1 RN Sign Out Signature Date/Time [facility] IntraOp Skin Prep Entry 1 Procedure Knee Total Joint Replacement(Right) Prescribed N/A Pre-Surgical Prep Completed Prep Area right thigh to toes circumferentially Intraop Prep Integumentary WDL Assessment WDL Prep Agents Chloraprep Prep by Tana Maynard RN Hair Removal Methods No hair removal performed Last Modified By: Tana Maynard RN 08/30/18 11:54:06 [facility] IntraOp Surgical Procedures Entry 1 Procedure Knee Total Joint Replacement Modifiers Right Additional RT TOTAL KNEE Procedure ARTHROPLASTY Description Primary Procedure Yes Primary Surgeon BEATRIZ RAWLS MD-ORT Start 08/30/18 12:44:00 Stop 08/30/18 14:36:00 Anesthesia Type General Specialty SN Orthopedic Wound Class I - Clean Last Modified By: Tana Maynard RN 08/30/18 11:54:12 [facility] IntraOp Surgical Procedures Audit 08/30/18 14:36:43 Sample Washer: HAMILTGM Modifier: HAMILTGM <+> 1 Stop 08/30/18 12:46:05 Sample Washer: HAMILTGM Modifier: HAMILTGM <+> 1 Start [facility] IntraOp Temp Regulation Devices Entry 1 Temp Regulation Temperature Warm blankets Regulation Device Temperature Upper body Regulation Site Temperature LARRY ADAIR CRNA Regulation Device Applied by Temperature bairhugger available Regulation Comment Last Modified By: Tana Maynard RN 08/30/18 11:54:34 [facility] IntraOP Time Out Entry 1 Procedure to [...] Modified By: Tana Maynard RN 08/30/18 12:45:54 [facility] Intra[facility] Time Out Audit 08/30/18 12:45:54 Sample Washer: JOCELIN Modifier: HAMILTGM 1 <+> Time Out Pause Time 1 <*> Procedure to be Performed Knee Total Joint Replacement(Right) [facility] IntraOp Tourniquet Entry 1 Type Pneumatic Serial/Unit Number [id number] Setting 350 mmHg Pheumatic Yes Tourniquet Checked Per Protocol Size 34 inches Placement Thigh, right upper Skin Protection - Yes Padded Under Cuff Applied By BEATRIZ RAWLS MD-ORT Removed By BEATRIZ PEACE PA Times Start Time 08/30/18 12:44:00 Stop Time 08/30/18 14:36:00 Total Time 111 calculated manually (Mins) Last Modified By: Tana Maynard RN 08/30/18 14:36:38 [facility] IntraOp Tourniquet Audit 08/30/18 14:36:38 Sample Washer: OLEGARIOILTGM Modifier: HAMILTGM 1 <*> Setting 300 mmHg 1 <+> Total Time calculated manually (Mins) 1 <+> Stop Time 08/30/18 12:46:04 Sample Washer: OLEGARIOILTGM Modifier: HAMILTGM <+> 1 Start Time [...]
--- OUTSIDE RECORDS SUMMARY | 2025-06-11 09:57 | XMS_ITS | Encounter Summary ---
Author Organization [email or web address] ([place], [place], [place], [place], [place]) Address [address] [place] [address] Care Team Providers Care Telephone Maintainer Name Role Phone Unavailable Primary Care Provider Unavailabl e Encounter Details Date Type Department Care Team (Late st Contact Info) Description 08/19/2018 Transcribed Document [facility] [place] [facility] [place] [address] ProviderTree MD [address] [place] [address] Social History Tobacco Use Types [...] - Tree ProviderMD - 08/19/2018 2:[address] PAT Adult Entered On: 08/19/2018 14:46 EST Performed On: 08/19/2018 14:34 EST by HIRAL MONTOYA RN Height and Weight, Clinical Dosing Height Source : Measured Height Entry Format : [place] Height, Feet : 5 ft(Converted to: 152 cm, 60 Inch) Height, Inches : 8.5 Inch(Converted to: 0 ft 9 Inch, 21.59 cm) Clinical Height : 173.99 cm Weight Source : Standing scale Weight Entry Format : [place] Clinical Dosing Weight : 101.82 kg Weight, Pounds : 224 lb Weight, Ounces : 0 oz Body Surface Area (BSA) : 2.16 m2 Body Mass Index : 33.6 kg/m2 (HI) [place] Body Weight : 69 kg HIRAL MONTOYA [...] Ambulatory Legal Guardian : Spouse Support Person/Patient Operations Expert : Yes Support Person/Pt Rep Name : Wellington Howell - Support Person/Pt Rep Contact Information : [phone] Want Family/Rep/Phys Notified of Admit : No Emergency Contact #1 : Wellington Howell Emergency Contact #1 Emergency Contact #1 Relationship : Emergency Contact #2 : na Emergency Contact #2 Phone Number : na Emergency Contact #2 Relationship : na Information Obtained From : Patient Primary Language : Upper Sorbian Preferred Communication Mode : Verbal Communication Barrier [...] 08/19/2018 14:34 EST Electronically signed by Amira, [facility] Conversion Envelope Press Operator Cerner at 10/27/2022 8:04 PM CDT documented in this encounter Plan of Treatment Not on file documented as of this encounter Visit Diagnoses Not on filedocumented in this encounter
--- OUTSIDE RECORDS SUMMARY | 2025-06-11 09:57 | XMS_ITS | Encounter Summary ---
Author Organization [employer] ([place], [place], [place], [place], [place]) Address [address] [place] [address] Care Team Providers Care Battery Mechanic Name Role Phone Unavailable Primary Care Provider Unavailabl e Encounter Details Date Type Department Care Team (Late st Contact Info) Description 08/30/2018 Transcribed Document [facility] [place] [facility] [place] [address] ProviderTree MD [facility] [place], [place] [id number] Social History Tobacco Use Types Packs/Day Years [...] Tree Alonso MD - 08/30/2018 2:42 PM TRACTOR CRANE OPERATOR DATE OF PROCEDURE:08/30/2018 PREOPERATIVE DIAGNOSIS(ES): Right knee osteonecrosis, medial femoral condyle with degenerative arthritis. POSTOPERATIVE DIAGNOSIS(ES): Right knee osteonecrosis, medial femoral condyle with degenerative arthritis. PROCEDURE: Right total knee replacement. SURGEON: Jakob Kimble MD DARKLIGHT INSPECTOR: Jakob Celaya PA-C ANESTHESIA: Regional block with [...]
--- OUTSIDE RECORDS SUMMARY | 2025-06-11 09:57 | XMS_ITS | Encounter Summary ---
Author Organization [employer] ([place], [place], [place], [place], [place]) Address [address] [place] [address] Care Team Providers Care Electronic Security Technician Name Role Phone Unavailable Primary Care Provider Unavailabl e Encounter Details Date Type Department Care Team (Late st Contact Info) Description 09/02/2018 Transcribed Document [facility] [place] [facility] [place] [address] ProviderTree MD [facility] [place], [place] [id number] Social History Tobacco Use Types Packs/Day Years [...] Tree Alonso MD - 09/02/2018 1:30 PM [employer] WEDGER Post Visit Phone Call Entered On: 09/02/2018 13:33 EST Performed On: 09/02/2018 13:30 EST by JUAN FRAZIER Rn-Ortho Nurse Navigator Post Visit Phone Call Post Visit Phone Call History : First call Phone Number : [phone] Contact Relationship to Patient : Spouse Emergency [...] Urology appointment made with Dr. Eugene in [place] on 09/05/18 at 2:15. states understanding. JUAN FRAZIER, Boby-Ortho Nurse Navigator - 09/02/2018 13:30 EST documented in this encounter Plan of Treatment Not on file documented as of this encounter Visit Diagnoses Not on filedocumented in this encounter
--- OUTSIDE RECORDS SUMMARY | 2025-06-11 09:57 | XMS_ITS | Encounter Summary ---
Author Organization [employer] ([place], [place], [place], [place], [place]) Address [address] [place] [address] Care Team Providers Care Jacquard Loom Card Changer Name Role Phone Unavailable Primary Care Provider Unavailabl e Encounter Details Date Type Department Care Team (Late st Contact Info) Description 08/30/2018 Transcribed Document [facility] [place] [address] [place] [address] ProviderTree MD [address] [place], [place] [id number] Social History Tobacco Use Types Packs/Day Years [...] - Tree ProviderMD - 08/30/2018 2:59 PM CHIEF TRANSFER AND PUMPHOUSE OPERATOR Pain Assessment Entered On: 08/31/2018 15:30 EST [...]
--- OUTSIDE RECORDS SUMMARY | 2025-06-11 09:57 | XMS_ITS | Encounter Summary ---
Author Organization [employer] ([place], [place], [place], [place], [place]) Address [address] [place] [address] Care Team Providers Care Medical Lab Director Name Role Phone Unavailable Primary Care Provider Unavailabl e Encounter Details Date Type Department Care Team (Late st Contact Info) Description 08/31/2018 Transcribed Document [facility] [place] [address] [place] [address] ProviderTree MD [address] [place] [address] Social History Tobacco Use Types [...] - Tree ProviderMD - 08/31/2018 1:39 PM ACID SPLICER Care Management Assessment/Plan Entered On: 08/31/2018 13:46 EST Performed On: 08/31/2018 13:39 EST by Christina Meyers RN Care Management Note Care Management Note : Pt had f/c placed for urinary retention and needs f/u appt with Uro in 5 days. Called [facility] ([phone]) to schedule appt, but MD needs referral and clinicals faxed and then they will call pt with appt. Faxed everything needed and informed pt and spouse. Pt will dc home on Lovenox for DVT prophylaxis. Faxed script for Lovenox to [facility] in [place], they have enough in stock and pt's co-pay is $10. Pt and spouse agree to pay this. Care Management Note Report : Christina Meyers RN - 08/31/18 11:28:36 [id number] Documentation Status Complete : Yes Christina Meyers RN - 08/31/2018 13:39 EST Electronically signed by Amira [facility] Conversion Survey Technologist Cerner at 10/27/2022 8:13 PM CDT documented in this encounter Plan of Treatment Not on file documented as of this encounter Visit Diagnoses Not on filedocumented in this encounter
--- OUTSIDE RECORDS SUMMARY | 2025-06-11 09:57 | XMS_ITS | Clinical Summary ---
Author Organization [facility] Address [address] [place] [address] Care Team Providers Care Manager Benefit Name Role Phone Provider, No Known Primary [...] Vaccine ( - 2024- season) 03/12/202504/2021 Insurance [facility] PPO Care Teams Manager Benefit Relationship Specialty Start Date End Date Provider, No Known [facility] [address] PCP - General 10/22/20
--- OUTSIDE RECORDS SUMMARY | 2025-06-11 09:57 | XMS_ITS | Encounter Summary ---
Author Organization [employer] ([place], [place], [place], [place], [place]) Address [address] [place] [address] Care Team Providers Care Breaker Mechanic Name Role Phone Unavailable Primary Care Provider Unavailabl e Encounter Details Date Type Department Care Team (Late st Contact Info) Description 08/30/2018 Transcribed Document [facility] [place] [address] Provider[place] [address] Social History Tobacco Use Types [...] - Tree ProviderMD - 08/30/2018 2:59 PM MEDIA RELATIONS COORDINATOR Evaluation, Physical Therapy Entered On: 08/31/2018 12:38 [...] PT : 62 yo male adm to [facility] 08/30 for adv OA R Knee and [...] to Sit Device : Rails, Other: leg copy cutter Sit to Stand Device : Belt, gait, Walker, front wheel Stand to Sit Device : Belt, gait, Walker, front wheel TEJAL ROBERTS, PT - 08/31/2018 12:08 EST AM [facility] Basic Mobility Turning Over in Bed : Unable Sit Down On/Stand Up From Chair w/ Arms : Unable Move Back Lying to Sitting Side of Bed : Unable Moving To/From a Bed to Chair : A little Need to Walk in Hospital Room : A little Climbing 3-5 Steps with a Railing : A little AM-[facility] Basic Mobility Raw Score : 12 AM-[facility] Basic Mobility Standardized Score : 35.33 AM-[facility] Basic Mobility CMS 0-100% Score : 68.66 % TEJAL ROBERTS, PT - 08/31/2018 12:08 EST Image 1 - Images currently included in the form version of this document have not been included in the text rendition version of the form. Functional Limitation Reporting, PT Functional Limitation Visit Type, PT : Initial evaluation Severity Determination Method, PT : Clinical Judgment, AM [facility] Basic Mobility Mobility G8978 - Current Mod, [...] TEJAL ROBERTS, PT - 08/31/2018 12:08 EST Single Pass Soil Stabilizer Operator Goals Mobility/Bed Mobility LTG PT Grid Goal [...] did step in retro fashion joint assistant strength coach NOT present Assessment : good effort, but struggled with bed mob and gait ROM limited by pain 1st day post op needs review of HEP, gait and stairs Joint MEDICAL LOGISTICS SPECIALIST needs to be present Plan for Treatment : review gait and HEP in PM along with step WITH JOINT MEDICAL LOGISTICS SPECIALIST present TEJAL ROBERTS PT - 08/31/2018 12:08 [...] TEJAL ROBERTS, PT - 08/31/2018 12:08 EST [facility] PT Charges PT Therap. Exercise 15 min : 2 Gait Training Each 15 Min : 1 PT Eval Low Complexity : 1 TEJAL ROBERTS, PT - 08/31/2018 12:08 EST documented in this encounter Plan of Treatment Not on file documented as of this encounter Visit Diagnoses Not on filedocumented in this encounter
--- OUTSIDE RECORDS SUMMARY | 2025-06-11 09:57 | XMS_ITS | Clinical Summary ---
Author Organization [employer] ([place], [place], [place], [place], [place]) Address [address] [place] [address] Care Team Providers Care Tile Classifier Name Role Phone Unavailable Primary Care Provider [...]
--- OUTSIDE RECORDS SUMMARY | 2025-06-11 09:57 | XMS_ITS | Encounter Summary ---
Author Organization [employer] ([place], [place], [place], [place], [place]) Address [address] [place] [address] Care Team Providers Care Toe Laster Name Role Phone Unavailable Primary Care Provider Unavailabl e Encounter Details Date Type Department Care Team (Late st Contact Info) Description 08/30/2018 Transcribed Document [facility] [place] [address] [place] [address] ProviderTree MD [facility] [place], [place] [id number] Social History Tobacco Use Types Packs/Day Years [...] - Tree ProviderMD - 08/30/2018 2:59 PM KILN TENDER Evaluation, Occupational Therapy Entered On: 08/31/2018 14:39 EST Performed On: 08/31/2018 10:24 EST by LEVAR BAJWA OTR/Sis General Information, OT Visit Type, OT : Initial evaluation Patient Orders : Order Date Order Ordering 08/30/2018 15:00 OT Evaluation and Treatment Ordered By: BEATRIZ RAWLS MD-ORT 08/30/2018 15:00 OT Treatment Instructions Ordered By: BAETRIZ RAWLS MD-ORYuko Active Diagnoses : 08/30/2018 00:00 [...] SBA, min A for LB dressing using millinery salesperson. Pt educated on use AE for LB [...] LEVAR BAJWA OTR/L - 08/31/2018 14:34 EST [facility] OT Charges OT Selfcare/Hm Mgmt Ea 15 Min : 1 OT Eval Low Complexity : 1 LEVAR BAJWA OTR/Sis - 08/31/2018 14:34 EST Electronically signed by [facility] Conversion Clinical Transformation Specialist Cerner at 10/27/2022 8:26 PM CDT documented in this encounter Plan of Treatment Not on file documented as of this encounter Visit Diagnoses Not on filedocumented in this encounter
--- OUTSIDE RECORDS SUMMARY | 2025-06-11 09:57 | XMS_ITS | Encounter Summary ---
Author Organization [facility] Address [address] [place] [address] Care Team Providers Care Carpenter Name Role Phone Parrish Thurman MD Primary Care Provider + [phone] Encounter Details Date Type Department Care Team (Latest Contact Info) Description 05/28/2025 Travel Social History Tobacco Use Types Packs/Day [...] any time in the past 12 m [facility], were you homeless or living in a residential (including now)? 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 file Not on file Not on file documented as of this encounter Plan of Treatment Upcoming Encounters Date Type Department Care Team ([facility] Contact Info) Description 12/07/2025 1:00 PM EDT Office Visit Medical Office Building [facility] [address], [address] [place] [address] Afshan Bryan MD [address] [place] [address] documented as of this encounter [...] documented as of this encounter Care Teams Carpenter Relationship Specialty Start Date End Date Parrish Thurman MD [facility] [address], [place] [address] PCP - General 10/19/24 documented as of this encounter
--- OUTSIDE RECORDS SUMMARY | 2025-06-11 09:57 | XMS_ITS | Encounter Summary ---
Author Organization [facility] Address [address] [place] [id number] Care Team Providers Care Weekday Babysitter Name Role Phone Parrish Thurman MD Primary Care Provider + [phone] Reason for Visit * Reason Comments Med Refill Encounter Details Date Type Department Care Team ([facility] st Contact Info) Description 05/15/2025 Refill [facility] Hematology/BMT and Cellular Therapy Program [address] [address] Mohit Villarreal MD [address] [facility] [address] [place] [address] Social History Tobacco Use Types Packs/Day Years [...] any time in the past 12 m [facility], were you homeless or living in a senior care (including now)? 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 file Not on file Not on file documented as of this encounter Plan of Treatment Upcoming Encounters Date Type Department Care Team (Late st Contact Info) Description 12/07/2025 1:00 PM EDT Office Visit Medical Office Building Surgery [facility] [address], [address] [place] [address] Afshan Bryan MD [address] [place] [address] documented as of this encounter [...] documented as of this encounter Care Teams Weekday Babysitter Relationship Specialty Start Date End Date Parrish Thurman MD [address] [facility] [address] [place] [address] PCP - General 10/19/24 documented as of this encounter
--- OUTSIDE RECORDS SUMMARY | 2025-06-11 09:57 | XMS_ITS | Encounter Summary ---
Author Organization [employer] ([place], [place], [place], [place], [place]) Address [address] [place] [address] Care Team Providers Care Statistical Geneticist Name Role Phone Unavailable Primary Care Provider Unavailabl e Encounter Details Date Type Department Care Team (Late st Contact Info) Description 08/31/2018 Transcribed Document [facility] [place] [address] [place] [address] ProviderTree MD [address] [place] [address] Social History Tobacco Use Types [...] Note - Tree Alonso MD - 08/31/2018 7:26 AM SALES APPOINTMENT COORDINATOR Care Management Assessment/Plan Entered On: 08/31/2018 11:28 [...] am to discuss DCP. FRW obtained from [facility] and has been delivered to pt's room. Referral sent to [facility] via [facility] for HHC and informed liaison Aminah. No [...]
--- OUTSIDE RECORDS SUMMARY | 2025-06-11 09:57 | XMS_ITS | Encounter Summary ---
Author Organization [employer] ([place], [place], [place], [place], [place]) Address [address] [place] [address] Care Team Providers Care Dubbing Machine Operator Name Role Phone Unavailable Primary Care Provider Unavailabl e Encounter Details Date Type Department Care Team (Late st Contact Info) Description 08/31/2018 Transcribed Document [facility] [place] Medicine [facility] [place] [address] ProviderTree MD [address] [place] [address] Social History Tobacco Use Types Packs/Day [...] Tree Alonso MD - 08/31/2018 10:51 AM TESTER COMPRESSED GASES [address] [place] [address] Patient Copy Patient Information: Name: PETRA VILLALBA Current Date: 08/31/2018 10:51:42 : 1955 Patient Address: [address] [place] [phone] Patient Attending Physician: BEATRIZ RAWLS MD-ORT Primary Care Provider: BILL VENTURA MD-KATHLEEN Primary Care Provider Discharge Diagnosis: Weight on Admission: 224 lb, 0 oz Comment: Follow-up Instructions: With: Address: When: BEATRIZ RAWLS [address] [employer] [employer], [place] [phone] [facility] (1) 11:00 AM Discharge Instructions: Diet after [...] nasal (fluticasone 50 mcg/inh nasal spray) 1 Fifty Six(s) Nostrils Both Every Day. fluticasone/umeclidinium/vilanterol (Trelegy Ellipta) [...] 10/23/2013 Document Revised: 07/19/2015 Document Reviewed: 06/13/2016 [employer] Interactive Patient Education ? 2017 [employer] Wound Infection Introduction A wound infection [...] instructions at home: Medicines??? Take or apply kfpa-mmm-ceeoxwt and prescription medicines only as told by [...] cannot use soap and water, use hand starch factory laborer. ? Change your bandage as told by [...] these instructions at home: Medicines ??? Take lzvx-ipu-sothwcg and prescription medicines only as told by [...] cannot use soap and water, use hand starch factory laborer. ? Change your bandage as told by [...] 09/19/2012 Document Revised: 03/01/2017 Document Reviewed: 06/03/2016 [employer] Interactive Patient Education ? 2017 [employer]. Medication Leaflets: tamsulosin (durant angeline FEROZ sin) [...] may report side effects to FDA at 9-900-YOL-7617. What other drugs will affect tamsulosin? Tell [...] may affect tamsulosin. This includes prescription and gbtu-hge-hbjjslr medicines, vitamins, and herbal products. Not all [...] to ensure that the information provided by [employer]. ('[employer]') is accurate, up-to-date, and complete, but no guarantee is made to that effect. Drug information contained herein may be time sensitive. [employer] information has been compiled for use by healthcare practitioners and consumers in the [place] and therefore [employer] does not warrant that uses outside of the [place] are appropriate, unless specifically indicated otherwise. [employer] drug information does not endorse drugs, diagnose patients or recommend therapy. [employer] drug information is an informational resource designed [...] effective or appropriate for any given patient. [employer] does not assume any responsibility for any aspect of healthcare administered with the aid of information [facility] provides. The information contained herein is not intended to cover all possible uses, directions, precautions, warnings, drug interactions, allergic reactions, or adverse effects. If you have questions about the drugs you are taking, check with your doctor, nurse or pharmacist. Copyright 1624-1519 [facility]. Version: 9.01. Revision Date: 06/06/2018. enoxaparin (ee [...] may report side effects to FDA at 9-326-KIB-3666. What other drugs will affect enoxaparin? Tell [...] drugs may affect enoxaparin, including prescription and jvjb-nrr-vritchp medicines, vitamins, and herbal products. Not all [...] to ensure that the information provided by [employer]') is accurate, up-to-date, and complete, but no guarantee is made to that effect. Drug information contained herein may be time sensitive. [employer] information has been compiled for use by healthcare practitioners and consumers in the [place] and therefore [employer] does not warrant that uses outside of the [place] are appropriate, unless specifically indicated otherwise. [employer]'s drug information does not endorse drugs, diagnose patients or recommend therapy. [employer] drug information is an informational resource designed [...] effective or appropriate for any given patient. [facility] does not assume any responsibility for any aspect of healthcare administered with the aid of information [facility] provides. The information contained herein is not intended to cover all possible uses, directions, precautions, warnings, drug interactions, allergic reactions, or adverse effects. If you have questions about the drugs you are taking, check with your doctor, nurse or pharmacist. Copyright 0477-0871 [facility]. Version: 05.12. Revision Date: 10/14/2017. [...] pain, tiredness, loss of appetite, dark urine, zian-colored stools, jaundice (yellowing of the skin or [...] may report side effects to FDA at 4-645-HUP-4395. What other drugs will affect acetaminophen and [...] affect acetaminophen and oxycodone, including prescription and zwhb-tzx-mmmrycw medicines, vitamins, and herbal products. Not all [...] to ensure that the information provided by [employer] ('[employer]') is accurate, up-to-date, and complete, but no guarantee is made to that effect. Drug information contained herein may be time sensitive. [employer] information has been compiled for use by healthcare practitioners and consumers in the [place] and therefore [employer] does not warrant that uses outside of the [place] are appropriate, unless specifically indicated otherwise. [employer] drug information does not endorse drugs, diagnose patients or recommend therapy. [employer] drug information is an informational resource designed [...] effective or appropriate for any given patient. [employer] does not assume any responsibility for any aspect of healthcare administered with the aid of information [employer] provides. The information contained herein is not intended to cover all possible uses, directions, precautions, warnings, drug interactions, allergic reactions, or adverse effects. If you have questions about the drugs you are taking, check with your doctor, nurse or pharmacist. Copyright 6266-7657 [employer]. Version: 18.02. Revision Date: 06/08/2018. CIGARETTE SMOKING: The facts are clear, cigarette smoking will shorten your life. Smoking can cause many illnesses along the way. As a healthcare provider, we recommend that you stop smoking. Assistance with quitting is available by contacting 5-688-AAFK-NOW. This is a free resource providing counseling, [...] Be sure to sign up for the [facility] patient portal, which gives you / access to your medical information ??? including these discharge instructions ??? using your computer, smartphone, or tablet. Just go to [employer] to get started. Questions? Call . [facility] would like to thank you for allowing us to assist you with your healthcare needs. IDEEJAY BILL RAY, (or patient accounting representative) have received the above patient education materials/instructions and have verbalized understanding: Patient Signature _ Date/Time Patient Edi Coordinator Signature (if needed) Date/Time Clinician/Hospital Edi Coordinator Signature (if needed) Date/Time documented in this encounter Plan of Treatment Not on file documented as of this encounter Visit Diagnoses Not on filedocumented in this encounter
--- OUTSIDE RECORDS SUMMARY | 2025-06-11 09:57 | XMS_ITS | Encounter Summary ---
Author Organization [employer] ([place], [place], [place], [place], [place]) Address [address] [place] [address] Care Team Providers Care Straight Truck Driver Name Role Phone Unavailable Primary Care Provider Unavailabl e Encounter Details Date Type Department Care Team (Late st Contact Info) Description 08/30/2018 Transcribed Document [facility] [place] Family Medicine [address] [place] [address] ProviderTree MD [address] [place] [address] Social History Tobacco Use Types [...] Tree Alonso MD - 08/30/2018 12:44 PM PLUMBING HARDWARE ASSEMBLER [facility] Main OR Preop Summary Primary Physician: BEATRIZ RAWLS MD-ORYuko Finalized Date/Time: 08/30/18 13:52:13 Pt. Name: DEEJAY PETRA JACKSON D.O.B./Sex: 1955 Male Med Rec #: [id number] Physician: BEATRIZ RAWLS MD-ORYuko Financial #: [id number] Pt. Type: O Room/Bed: /6 Admit/Disch: 08/30/18 06:24:00 - Institution: [facility] PreOp Case Times Entry 1 In Preop 08/30/18 05:35:00 Ready for Holding n/a Room Patient Ready for 08/30/18 10:45:00 Surgery Patient Out of Preop 08/30/18 12:03:00 Patient Out of n/a Holding Room Last Modified By: TANA SAENZ RN 08/30/18 13:52:11 [facility] PreOp Case Times Audit 08/30/18 13:52:11 Gas Treater: MONICO Modifier: BOWLINC <+> 1 Patient Out of Preop 08/30/18 10:52:31 Gas Treater: MONICO Modifier: BOWLINC <+> 1 Patient Ready for Surgery Finalized By: TANA SAENZ, RN Document Signatures Signed By: TANA SAENZ RN 08/30/18 13:52 documented in this encounter Plan of Treatment Not on file documented as of this encounter Visit Diagnoses Not on filedocumented in this encounter
--- OUTSIDE RECORDS SUMMARY | 2025-06-11 09:57 | XMS_ITS | Encounter Summary ---
Author Organization [employer] ([place], [place], [place], [place], [place]) Address [address] [place] [address] Care Team Providers Care Flap Curer Name Role Phone Unavailable Primary Care Provider Unavailabl e Encounter Details Date Type Department Care Team (Late st Contact Info) Description 08/30/2018 Transcribed Document [facility] [place] [address] [place] [address] ProviderTree MD [address] [place], [place] [id number] Social History Tobacco Use Types Packs/Day Years [...] Tree Alonso MD - 08/30/2018 7:00 AM ACTIVITY DIRECTOR Pain Assessment Entered On: 08/30/2018 15:06 EST [...]
--- OUTSIDE RECORDS SUMMARY | 2025-06-11 09:57 | XMS_ITS ---
Author Organization [facility] Address [address] 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
--- OUTSIDE RECORDS SUMMARY | 2025-06-11 09:57 | XMS_ITS | Encounter Summary ---
Author Organization [employer] ([place], [place], [place], [place], [place]) Address [address] [place] [address] Care Team Providers Care Mainspring Fabrication Supervisor Name Role Phone Unavailable Primary Care Provider Unavailabl e Encounter Details Date Type Department Care Team (Late st Contact Info) Description 08/30/2018 Transcribed Document [facility] [place] [address] [place] [address] ProviderTere MD [address] [place], [place] [id number] Social History Tobacco Use Types Packs/Day Years [...] Tree Alonso MD - 08/30/2018 10:15 AM FENDER REPAIRER Procedural Documentation Entered On: 08/30/2018 10:21 EST Performed On: 08/30/2018 10:15 EST by TANA SAENZ RN Procedure Documentation Procedure Case Attendee : BAKARI SANCHEZ MD Procedure Case Attendee Role : Anesthesiologist Procedure Case Attendee Role 2 : adjustment clerk Case Attendee 2 : TANA SAENZ RN Procedure Case Attendee Role 3 : adjustment clerk Case Attendee 3 : DESEAN GUILLEN RN [...] 08/30/2018 10:22 EST Electronically signed by Am[facility] Conversion Branch Service Representative Cerner at 10/27/2022 8:27 PM CDT documented in this encounter Plan of Treatment Not on file documented as of this encounter Visit Diagnoses Not on filedocumented in this encounter
--- OUTSIDE RECORDS SUMMARY | 2025-06-11 09:58 | XMS_ITS | Data Portability ---
Author Organization [place] [place] [facility] Address [address] [place] [address] Care Team Providers Care Academic Support Director Name Role Phone FUNMI BIRD Primary Care Provider [phone] Assessment No assessment recorded. Plan of Treatment Reminders Order Date Submit Date Provider Last Modified By Organization Details Last Modified Time Details Appointments RECHECK 2025 03:15P Luis PATEL MD Not available Not available Not available Lab urinalysi s panel, auto 2023 024 [facility] With [facility], [address], [address], [place], [address], 05/21/2024 16:08:40 urinalysi s panel, auto 2023 024 [facility] With [facility], [address], [address], [place], [address], 11/22/2023 07:15:30 PSA, total + free, serum or plasma [address] (Lab), [address] [place] [address] [address], [place], [address], 09/10/2022 08:13:18 urinalysi s panel, auto 2021 022 [facility], [address], [address], [place], [address], 02/11/2022 18:57:55 urinalysi s panel, auto [email or web address], [address], [address], [place], [address], 07/28/2021 14:17:42 Referral None recorded. Procedures None recorded. Surgeries None recorded. Imaging None recorded. Medication Orders None recorded. Patient TargetsNo targets recorded. Patient Instructions Encounter Date Encounter Id Patient Instructions Last Modified By Organization Details Last Modified Time 07/28/2021 [id number] continue to foll ow PSA conservatively. His hematospermia should continue to improve [email or web address] Not available 07/28/2021 14:17:52 02/02/2022 [id number] healthy together [email or web address] Not availabl e 02/11/2022 18:57:55 a we'll call the patient with PSA results and further recommendations [email or web address] Not available 02/11/2022 18:57:36 05/15/2024 [id number] learning about healthy weight [email or web address] Not available 05/21/2024 16:08:40 Reason for Referral None Reported. Results Created Date Observation Date Name Description Value Unit Range Abnormal Flag Note LastModifiedBy Organization Detail LastModifiedTime 07/28/1907/28/2021 urina lysis panel , auto Unknown Analyte Clean Catch Not Available [facility] Extended Services With [facility] [address], [place], [address], 07/28/2021 13:34:23 07/28/19 22 07/28/2021 urina lysis panel , auto Unknown Analyte Yellow Not Available [facility] Extended Services With [facility] [address], [place], [address], 07/28/2021 13:34:23 07/28/19 22 07/28/2021 urina lysis panel , auto Unknown Analyte Clear Not Available [facility] With [place] [address], [place], [address], 07/28/2021 13:34:23 07/28/19 22 07/28/2021 urina lysis panel , auto Unknown Analyte 1.015 Not Available [facility] Extended Services With [place] [address], [place], [address], 07/28/2021 13:34:23 07/28/19 22 07/28/2021 urina lysis panel , auto Unknown Analyte 1.003- 1.035 Not Available [facility] Extended Services With [place] [address], [place], [address], 07/28/2021 13:34:23 07/28/19 22 07/28/2021 urina lysis panel , auto Unknown Analyte 5.0 Not Available [facility] Extended Services With [place] [address], [place], [address], 07/28/2021 13:34:23 07/28/19 22 07/28/2021 urina lysis panel , auto Unknown Analyte 5.0-8. 0 Not Available [facility] With [place] [address], [place], [address], 07/28/2021 13:34:23 07/28/19 22 07/28/2021 urina lysis panel , auto Unknown Analyte Negati ve Not Available [facility] [place] [facility] [address], [place], [address], 07/28/2021 13:34:23 07/28/19 22 07/28/2021 urina lysis panel , auto Unknown Analyte Negati ve Not Available [facility] [place] [facility] [address], [place], [address], 07/28/2021 13:34:23 07/28/19 22 07/28/2021 urina lysis panel , auto Unknown Analyte Negati ve Not Available [facility] [place] [facility] [address], [place], [address], 07/28/2021 13:34:23 07/28/19 22 07/28/2021 urina lysis panel , auto Unknown Analyte Negati ve Not Available [facility] Services With [facility] [address], [place], [address], 07/28/2021 13:34:23 07/28/19 22 07/28/2021 urina lysis panel , auto Unknown Analyte Negati ve Not Available [facility] With [facility] [address], [place], [address], 07/28/2021 13:34:23 07/28/19 22 07/28/2021 urina lysis panel , auto Unknown Analyte Negati ve Not Available [facility] [address], [place], [address], 07/28/2021 13:34:23 07/28/19 22 07/28/2021 urina lysis panel , auto Unknown Analyte Normal Not Available [facility] With [facility] [address], [place], [address], 07/28/2021 13:34:23 07/28/19 22 07/28/2021 urina lysis panel , auto Unknown Analyte Normal Not Available [facility] With [facility] [address], [place], [address], 07/28/2021 13:34:23 07/28/19 22 07/28/2021 urina lysis panel , auto Unknown Analyte Negati ve Not Available [facility] With [facility] [address], [place], [address], 07/28/2021 13:34:23 07/28/19 22 07/28/2021 urina lysis panel , auto Unknown Analyte Negati ve Not Available [facility] With [facility] [address], [place], [address], 07/28/2021 13:34:23 07/28/19 22 07/28/2021 urina lysis panel , auto Unknown Analyte Normal Not Available [facility] With [facility] [address], [place], [address], 07/28/2021 13:34:23 07/28/19 22 07/28/2021 urina lysis panel , auto Unknown Analyte Normal 1 mg/dl Not Available [facility] With [facility] [address], [place], [address], 07/28/2021 13:34:23 07/28/19 22 07/28/2021 urina lysis panel , auto Unknown Analyte Negati ve Not Available [facility] With [facility] [address], [place], [address], 07/28/2021 13:34:23 07/28/19 22 07/28/2021 urina lysis panel , auto Unknown Analyte Negati ve Not Available [facility] [place] [facility] With [place] [address], [place], [address], 07/28/2021 13:34:23 07/28/19 22 07/28/2021 urina lysis panel , auto Unknown Analyte Negati ve Not Available [facility] [place] [facility] With [place] [address], [place], [address], 07/28/2021 13:34:23 07/28/19 22 07/28/2021 urina lysis panel , auto Unknown Analyte Negati ve Not Available [facility] [place] [facility] With [place] [address], [place], [address], 07/28/2021 13:34:23 02/03/20 22 02/02/2022 urina lysis panel , auto Unknown Analyte Clean Catch Not Available [facility] [place] [facility] With [place] [address], [place], [address], 02/02/2022 15:01:27 02/03/20 22 02/02/2022 urina lysis panel , auto Unknown Analyte Yellow Not Available [facility] Extended Services With [address], [place], [address], 02/02/2022 15:01:27 02/03/20 22 02/02/2022 urina lysis panel , auto Unknown Analyte Clear Not Available [facility] [place] [facility] [place] [address], [place], [address], 02/02/2022 15:01:27 02/03/20 22 02/02/2022 urina lysis panel , auto Unknown Analyte 1.015 Not Available [facility] [place] [facility] With [address], [place], [address], 02/02/2022 15:01:27 02/03/20 22 02/02/2022 urina lysis panel , auto Unknown Analyte 1.003- 1.035 Not Available [facility] With [address], [place], [address], 02/02/2022 15:01:27 02/03/20 22 02/02/2022 urina lysis panel , auto Unknown Analyte 5.0 Not Available [facility] Extended Services With [address], [place], [address], 02/02/2022 15:01:27 02/03/20 22 02/02/2022 urina lysis panel , auto Unknown Analyte 5.0-8. 0 Not Available [facility] Extended Services With [address], [place], [address], 02/02/2022 15:01:27 02/03/20 22 02/02/2022 urina lysis panel , auto Unknown Analyte Negati ve Not Available [facility] Extended Services With [address], [place], [address], 02/02/2022 15:01:27 02/03/20 22 02/02/2022 urina lysis panel , auto Unknown Analyte Negati ve Not Available [facility] [place] [facility] With [address], [place], [address], 02/02/2022 15:01:27 02/03/20 22 02/02/2022 urina lysis panel , auto Unknown Analyte Negati ve Not Available [facility] [place] [facility] With [place] [address], [place], [address], 02/02/2022 15:01:27 02/03/20 22 02/02/2022 urina lysis panel , auto Unknown Analyte Negati ve Not Available [facility] [place] [facility] With [place] [address], [place], [address], 02/02/2022 15:01:27 02/03/20 22 02/02/2022 urina lysis panel , auto Unknown Analyte Negati ve Not Available [facility] [place] [facility] With [place] [address], [place], [address], 02/02/2022 15:01:27 02/03/20 22 02/02/2022 urina lysis panel , auto Unknown Analyte Negati ve Not Available [facility] [place] [address], [place], [address], 02/02/2022 15:01:27 02/03/20 22 02/02/2022 urina lysis panel , auto Unknown Analyte Normal Not Available [facility] Extended Services With [place] [address], [place], [address], 02/02/2022 15:01:27 02/03/20 22 02/02/2022 urina lysis panel , auto Unknown Analyte Normal Not Available [facility] [place] [facility] With [place] [address], [place], [address], 02/02/2022 15:01:27 02/03/20 22 02/02/2022 urina lysis panel , auto Unknown Analyte Negati ve Not Available [facility] [place] [facility] With [place] [address], [place], [address], 02/02/2022 15:01:27 02/03/20 22 02/02/2022 urina lysis panel , auto Unknown Analyte Negati ve Not Available [facility] [place] [facility] [place] [address], [place], [address], 02/02/2022 15:01:27 02/03/20 22 02/02/2022 urina lysis panel , auto Unknown Analyte Normal Not Available [facility] Extended [facility] With [place] [address], [place], [address], 02/02/2022 15:01:27 02/03/20 22 02/02/2022 urina lysis panel , auto Unknown Analyte Normal 1 mg/dl Not Available [facility] With [place] [address], [place], [address], 02/02/2022 15:01:27 02/03/20 22 02/02/2022 urina lysis panel , auto Unknown Analyte Negati ve Not Available [facility] With [place] [address], [place], [address], 02/02/2022 15:01:27 02/03/20 22 02/02/2022 urina lysis panel , auto Unknown Analyte Negati ve Not Available [facility] Extended Services With [place] [address], [place], [address], 02/02/2022 15:01:27 02/03/20 22 02/02/2022 urina lysis panel , auto Unknown Analyte Negati ve Not Available [facility] With [place] [address], [place], [address], 02/02/2022 15:01:27 02/03/20 22 02/02/2022 urina lysis panel , auto Unknown Analyte Negati ve Not Available [facility] [place] [facility] With [place] [address], [place], [address], 02/02/2022 15:01:27 11/15/19 24 11/15/2023 urina lysis panel , auto Unknown Analyte Clean Catch Not Available [facility] [place] [facility] With [address], [place], [address], 11/15/2023 15:46:18 11/15/19 24 11/15/2023 urina lysis panel , auto Unknown Analyte Yellow Not Available [facility] Extended Services With [address], [place], [address], 11/15/2023 15:46:18 11/15/19 24 11/15/2023 urina lysis panel , auto Unknown Analyte Clear Not Available [facility] Extended Services With [place] [address], [place], [address], 11/15/2023 15:46:18 11/15/19 24 11/15/2023 urina lysis panel , auto Unknown Analyte 1.010 Not Available [facility] Extended Services With [address], [place], [address], 11/15/2023 15:46:18 11/15/19 24 11/15/2023 urina lysis panel , auto Unknown Analyte 1.003- 1.035 Not Available [facility] Extended Services With [address], [place], [address], 11/15/2023 15:46:18 11/15/19 24 11/15/2023 urina lysis panel , auto Unknown Analyte 6.0 Not Available [facility] [place] [facility] With [place] [address], [place], [address], 11/15/2023 15:46:18 11/15/19 24 11/15/2023 urina lysis panel , auto Unknown Analyte 5.0-8. 0 Not Available [facility] [place] [facility] With [place] [address], [place], [address], 11/15/2023 15:46:18 11/15/19 24 11/15/2023 urina lysis panel , auto Unknown Analyte Negati ve Not Available [facility] With [place] [address], [place], [address], 11/15/2023 15:46:18 11/15/19 24 11/15/2023 urina lysis panel , auto Unknown Analyte Negati ve Not Available [facility] [place] [facility] With [place] [address], [place], [address], 11/15/2023 15:46:18 11/15/19 24 11/15/2023 urina lysis panel , auto Unknown Analyte Negati ve Not Available [facility] [place] [facility] With [place] [address], [place], [address], 11/15/2023 15:46:18 11/15/19 24 11/15/2023 urina lysis panel , auto Unknown Analyte Negati ve Not Available [facility] [place] [facility] With [address], [place], [address], 11/15/2023 15:46:18 11/15/19 24 11/15/2023 urina lysis panel , auto Unknown Analyte Negati ve Not Available [facility] [place] [facility] With [facility] [address], [place], [address], 11/15/2023 15:46:18 11/15/19 24 11/15/2023 urina lysis panel , auto Unknown Analyte Negati ve Not Available [facility] [place] [facility] [address], [place], [address], 11/15/2023 15:46:18 11/15/19 24 11/15/2023 urina lysis panel , auto Unknown Analyte Normal Not Available [facility] Extended Services With [place] [address], [place], [address], 11/15/2023 15:46:18 11/15/19 24 11/15/2023 urina lysis panel , auto Unknown Analyte Normal Not Available [facility] With [facility] [address], [place], [address], 11/15/2023 15:46:18 11/15/19 24 11/15/2023 urina lysis panel , auto Unknown Analyte Negati ve Not Available [facility] [place] [facility] [address], [place], [address], 11/15/2023 15:46:18 11/15/19 24 11/15/2023 urina lysis panel , auto Unknown Analyte Negati ve Not Available [facility] [place] [facility] With [facility] [address], [place], [address], 11/15/2023 15:46:18 11/15/19 24 11/15/2023 urina lysis panel , auto Unknown Analyte 4 mg/dl Not Available [facility] [place] [facility] With [place] [address], [place], [address], 11/15/2023 15:46:18 11/15/19 24 11/15/2023 urina lysis panel , auto Unknown Analyte Normal 1 mg/dl Not Available [facility] [place] [facility] With [place] [address], [place], [address], 11/15/2023 15:46:18 11/15/19 24 11/15/2023 urina lysis panel , auto Unknown Analyte Negati ve Not Available [facility] [place] [facility] With [address], [place], [address], 11/15/2023 15:46:18 11/15/19 24 11/15/2023 urina lysis panel , auto Unknown Analyte Negati ve Not Available [facility] [place] [facility] With [place] [address], [place], [address], 11/15/2023 15:46:18 11/15/19 24 11/15/2023 urina lysis panel , auto Unknown Analyte 50 Carroll/ul Not Available [facility] [place] [facility] With [place] [address], [place], [address], 11/15/2023 15:46:18 11/15/19 24 11/15/2023 urina lysis panel , auto Unknown Analyte Negati ve Not Available [facility] [place] [facility] With [place] [address], [place], [address], 11/15/2023 15:46:18 05/15/2005/15/2024 urina lysis panel , auto Unknown Analyte Clean Catch Not Available [facility] [place] [facility] With [place] [address], [place], [address], 05/15/2024 14:31:19 05/15/20 24 05/15/2024 urina lysis panel , auto Unknown Analyte Yellow Not Available [facility] With [place] [address], [place], [address], 05/15/2024 14:31:19 05/15/2005/15/2024 urina lysis panel , auto Unknown Analyte Clear Not Available [facility] Extended Services With [address], [place], [address], 05/15/2024 14:31:19 05/15/2005/15/2024 urina lysis panel , auto Unknown Analyte 1.015 Not Available [facility] Extended Services With [place] [address], [place], [address], 05/15/2024 14:31:19 05/15/20 24 05/15/2024 urina lysis panel , auto Unknown Analyte 1.003- 1.035 Not Available [facility] [place] [facility] With [place] [address], [place], [address], 05/15/2024 14:31:19 05/15/20 24 05/15/2024 urina lysis panel , auto Unknown Analyte 5.0 Not Available [facility] Extended Services With [place] [address], [place], [address], 05/15/2024 14:31:19 05/15/20 24 05/15/2024 urina lysis panel , auto Unknown Analyte 5.0-8. 0 Not Available [facility] [place] [facility] With [place] [address], [place], [address], 05/15/2024 14:31:19 05/15/20 24 05/15/2024 urina lysis panel , auto Unknown Analyte 25 Glory/ul Trace Not Available [facility] [place] [facility] With [place] [address], [place], [address], 05/15/2024 14:31:19 05/15/2005/15/2024 urina lysis panel , auto Unknown Analyte Negati ve Not Available [facility] [place] [facility] With [address], [place], [address], 05/15/2024 14:31:19 05/15/2005/15/2024 urina lysis panel , auto Unknown Analyte Negati ve Not Available [facility] [place] [facility] With [place] [address], [place], [address], 05/15/2024 14:31:19 05/15/20 24 05/15/2024 urina lysis panel , auto Unknown Analyte Negati ve Not Available [facility] [place] [facility] With [address], [place], [address], 05/15/2024 14:31:19 05/15/2005/15/2024 urina lysis panel , auto Unknown Analyte 30 mg/dl (+) Not Available [facility] [place] [facility] With [address], [place], [address], 05/15/2024 14:31:19 05/15/20 24 05/15/2024 urina lysis panel , auto Unknown Analyte Negati ve Not Available [facility] [place] [facility] [place] [address], [place], [address], 05/15/2024 14:31:19 05/15/20 24 05/15/2024 urina lysis panel , auto Unknown Analyte Normal Not Available [facility] Extended Services With [place] [address], [place], [address], 05/15/2024 14:31:19 05/15/20 24 05/15/2024 urina lysis panel , auto Unknown Analyte Normal Not Available [facility] Extended Services With [place] [address], [place], [address], 05/15/2024 14:31:19 05/15/20 24 05/15/2024 urina lysis panel , auto Unknown Analyte Negati ve Not Available [facility] Extended Services With [place] [address], [place], [address], 05/15/2024 14:31:19 05/15/20 24 05/15/2024 urina lysis panel , auto Unknown Analyte Negati ve Not Available [facility] Extended Services With [place] [address], [place], [address], 05/15/2024 14:31:19 05/15/20 24 05/15/2024 urina lysis panel , auto Unknown Analyte 1 mg/dl Not Available [facility] Extended Services With [facility] [address], [place], [address], 05/15/2024 14:31:19 05/15/20 24 05/15/2024 urina lysis panel , auto Unknown Analyte Normal 1 mg/dl Not Available [facility] [place] [facility] With [facility] [address] [facility], [place], [address], 05/15/2024 14:31:19 05/15/20 24 05/15/2024 urina lysis panel , auto Unknown Analyte Negati ve Not Available Formerly [facility] [place] [facility] With [facility] [address], [place], [address], 05/15/2024 14:31:19 05/15/2005/15/2024 urina lysis panel , auto Unknown Analyte Negati ve Not Available [facility] Extended Services With [facility] [address] [facility], [place], [address], 05/15/2024 14:31:19 05/15/20 24 05/15/2024 urina lysis panel , auto Unknown Analyte Negati ve Not Available [facility] With [facility] [address] [facility], [place], [address], 05/15/2024 14:31:19 05/15/20 24 05/15/2024 urina lysis panel , auto Unknown Analyte Negati ve Not Available Formerly [facility] [place] [facility] [address] [facility], [place], [address], 05/15/2024 14:31:19 Result Notes None recorded. Problems No Known Problems Procedures Surgical History Date Name Laterality Status Provider Name and Address Organization Details Recorded Time 01/26/20 20 Aspiration Joint/Bursa[place] completed BEATRIZ RAWLS MD [address] [place], [address], [facility] 01/26/2020 10:04:07 12/20/19 Aspiration Joint/BursaOrlando completed BEATRIZ RAWLS MD [address] [place], [address], [facility] 12/20/2019 10:52:55 08/30/19 19 TOTAL KNEE ARTHROPLASTY (SURG) completed Tootie Tavares [facility] 09/12/2018 11:39:06 02/05/20 18 Injection - Joint/Bursa, Major completed BEATRIZ RAWLS MD [address] [place] [address], [address], [facility] 02/04/2018 08:30:25 10/28/19 18 Injection - Joint/Burs[place], [place] [address] [place] [address], [address], [facility] 10/27/2017 08:52:40 09/11/19 18 Injection - Joint/Bursa, Major completed BEATRIZ RAWLS MD [address] [place] [address], [address], [facility] 09/10/2017 12:04:55 Imaging Results None recorded. Procedure Notes None recorded. Medical Equipment None Reported. Allergies Allergen ID Allergen Name Allergen Category Reaction Reaction Severity Criticality Documentation Date Start Date Code Code System Note Provider Name and Address Organization Details Recorded Time 163460 doxycycli ne Not available hives Not available Not available 02/03/2021 3640 [facility] 14:54:58 161887 POLLEN EXTRACTS environme nt,medica tion cough Not available low 05/25/20252024 48532 6 RxNorm Gras s and trees envir onmen t Not Available francesco - External Data Service - prod 5 08:32:43 641332 rosuvasta tin medicatio n Not available Not available Not available 05/25/2025 64066 2 RxNorm Not Available [employer] External Data Service - prod 08:32:56 Medications Name Sig Start Date Stop Date [...] No t Available Fluzone Quad (PF) 60 mcg(15 mcgx4)/0.5 mL intramuscul ar syringe [...] Updated DateTime 07/28/2021 175.26 cm 34 kg/m2 086100.25 g [facility] 07/28/2021 13:33:24 Date Recorded Body height Body mass index (BMI) Body weight Provider Name and Address Organization Details Last Updated DateTime 08/03/2022 175.26 cm 34 kg/m2 759819.25 g [facility] 08/03/2022 14:43:36 Date Recorded Body height Body mass index (BMI) Body weight Provider Name and Address Organization Details Last Updated DateTime 11/15/2023 175.26 cm 36.9 kg/m2 218907.09 g Erika Springert [facility] 11/15/2023 15:45:04 Date Recorded Body height Body mass index (BMI) Body weight Provider Name and Address Organization Details Last Updated DateTime 02/02/2022 175.26 cm 34 kg/m2 583985.25 g Kadnace White [facility] 02/02/2022 15:00:55 Date Recorded Body height Body mass index (BMI) Body weight Provider Name and Address Organization Details Last Updated DateTime 05/15/2024 175.26 cm 37.4 kg/m2 371871.87 g Eirka Obie [facility] 05/15/2024 14:26:17 Social History Question Answer Notes LastModified by Organizat ion Details LastModified Time Tobacco Smoking Status Former [facility]oker [facility] 26 years [facility] 09/10/2017 10:42:19 Accident Related Injury Yes [email or web address] Information not available 09/10/2017 What Is Your Level Of Caffeine Consumption? Moderate Coffee, Mountain Dew Daily [email or web address] Information not available 09/10/2017 How Much Tobacco Do You Chew? None Information not available 08/01/2018 Which Of Your Hands Is Dominant? Right [email or web address] Information not available 09/10/2017 Rate The Severity Of Your Symptoms: (0-10 With 0=none And 10=worst Possible) 10 4-10/10 [email or web address] Information not available 05/06/2020 Date Of Injury: 04/22/2017 [email or web address] Information not available 10/27/2017 Have You Been Treated For This Problem Before? Yes Dr. Quijano [email or web address] Information not available 09/10/2017 How Long Have You Had These Symptoms? 04/22/2017 [email or web address] Information not available 01/26/2020 Will This Be Filed As Workers' Compensation? No [email or web address] Information not available 08/01/2018 Marital Status [email or web address] Informatio n not available 08/01/2018 What Was The Date Of Your Most Recent Tobacco Screening? 05/15/2024 [email or web address] Information not available 05/15/2024 How Much Tobacco Do You Smoke? No [email or web address] Information not available 03/06/2019 Has Tobacco Cessation Counseling Been Provided? No [email or web address] Information not available 06/06/2018 How Many Years Have You Smoked Tobacco? 15 [email or web address] Information not available 09/10/2017 Work Related Injury? Yes Information not available 09/10/2017 Sex: Unknown Functional Status Question Answer Note LastModified by Organizat ion Details LastModified Time Do you use any illicit or recreational drugs? No [email or web address] Information not available 06/06/2018 What is your level of alcohol consumption? Occasional [email or web address] Information not available 09/10/2017 Do you or have you ever used smokeless tobacco? Never used smokeless tobacco [email or web address] Information not available 03/06/2019 Are you currently employed? 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 Never used electronic cigarettes [email or web address] Information not available 03/06/2019 Mental Status None recorded. Family History Nothing Reported. Medical History Condition Response Allergies/Hayfever Y Other N Anxiety/Depression N Gout N Thyroid Disease N Kidney Stones N Heart Conditions N Hernia N Migraines N COPD N Glaucoma N Pneumonia N Skin Problems N Immune System Disorder N Anesthesia Complications N Heart Attack ([place]) N Mental Illness N Neurological Problems N Diabetes N Rheumatic Fever N Bleeding Disorder N Seizures/Epilepsy N Arthritis Y Blood Clot N Tuberculosis N Genetic Disorder N AIDS/HIV N Cancer N Stroke N Asthma Y Blood Thinners N Sleep Apnea N Alcohol Overuse/Alcohol Abuse N High Cholesterol Y Liver Disease N Included as Review of Systems Y Hypertension Y Osteoporosis N Kidney Disease N Past Encounters Encounter ID Performer Location Encounter Start Date Encounter Closed Date Diagnosis/Indication Diagnosis SNOMED-CT Code Diagnosis ICD10 Code Diagnosis IMO Codes Diagnosis Note [id number] BEATRIZ QUIJANO MD [facility] [address] [place] [address] 08/18/2017 13:32:33 08/18/2017 16:11:15 Pain in right knee 0171365426 47034 M25.561 Mr Brown has an osteochond ral injury to the medial femoral condyle. I recommend continued activity modificati on with restrictio n of extended weight bearing. I discussed treatment options to include corticoste roid injection, nsaids, and possible unicompart ment arthroplas ty right knee. [id number] BEATRIZ RAWLS MD [facility] [address] [place] [address] 09/10/2017 09:49:09 09/10/2017 12:25:15 Closed osteochondral fracture of distal femur 639822283 S72.434A [id number] BEATRIZ RAWLS MD [facility] [address] [place] [address] 10/13/2017 08:47:52 10/13/2017 09:45:32 Closed osteochondral fracture of distal femur 812861382 S72.434A Osteonecrosis 806202435 M87.798 [id number] BEATRIZ RAWLS MD [facility] [address] [place] [address] 10/27/2017 07:45:53 10/27/2017 08:53:59 Closed osteochondral fracture of distal femur 518022319 S72.434A Osteonecrosis 810422338 M87.060 [id number] BEATRIZ RAWLS MD [facility] [address] [place] [address] 02/04/2018 07:58:08 02/04/2018 08:53:29 Osteoarthritis of knee 567251548 M17.11 Idiopathic aseptic necrosis of bone 326705794 M87.211 [id number] BEATRIZ RAWLS MD [facility] [address] [place] [address] 06/06/2018 08:50:20 06/06/2018 10:31:24 Osteoarthritis of knee 545611437 M17.11 [id number] BEATRIZ RAWLS MD [facility] [address] [place] [address] 08/01/2018 15:21:27 08/01/2018 17:27:09 Aseptic necrosis of bone 312028192 M90.688 [id number] MONALISA PATEL JR, MD [facility] [address],[facility] [address] [place] [address] 09/05/2018 14:58:57 09/05/2018 15:26:49 Retention of urine 881515552 R33.9 Benign pro static hyperplasia with outflow obstruction 701520273 N40.1 Prostate s pecific antigen above reference range 703105715 R97.20 [id number] BEATRIZ RAWLS MD [facility] [address] [address] 09/12/2018 11:08:20 09/12/2018 12:25:00 History of right total knee replacement 5902086965 435901 Z96.638 [id number] MONALISA PATEL JR, MD [facility] [address] [address] [address] [place] [address] 09/12/2018 13:25:38 09/13/2018 10:45:48 Retention of urine 694460632 R33.9 Benign pro static hyperplasia with outflow obstruction 709663790 N40.1 Prostate s pecific antigen above reference range 445573004 R97.20 [id number] BEATRIZ RAWLS MD [facility] [address] [address] 10/05/2018 10:50:29 10/05/2018 11:23:31 History of right total knee replacement 4211441202 234758 Z96.651 s/p Righ TKA on 08/30/2018 . [id number] BEATRIZ RAWLS MD [facility] [address] [address] 10/21/2018 07:55:11 10/21/2018 08:37:33 History of right total knee replacement 3765860167 033771 Z96.651 s/p Righ TKA on 08/30/2018 . [id number] BEATRIZ RAWLS MD [facility] [address] [address] 11/07/2018 10:15:46 11/07/2018 11:20:27 Replacement of total knee joint 969546873 Z96.555 [id number] BEATRIZ RAWLS MD [facility] [address] [address] 11/25/2018 10:21:57 11/25/2018 11:24:20 History of right total knee replacement 3805115281 661599 Z96.651 s/p Righ TKA on 08/30/2018 . [id number] MONALISA PATEL JR, MD [facility] [address] [facility] [place] [address] 01/02/2019 16:02:25 01/04/2019 07:12:15 Prostate specific antigen above reference range 523149024 R97.20 Benign pro static hyperplasia with outflow obstruction 677124640 N40.1 [id number] BEATRIZ RAWLS MD [facility] [address] [place] [address] 01/11/2019 09:37:00 01/11/2019 11:02:41 History of right total knee replacement 4684775138 613164 Z96.651 s/p Right TKA on 08/30/2018 . [id number] MONALISA PATEL JR, MD [facility] [address] [facility] [address] [place] [address] 01/16/2019 15:18:29 01/18/2019 09:10:59 Prostate specific antigen above reference range 139132516 R97.20 Benign pro static hyperplasia with outflow obstruction 974727835 N40.1 [id number] BEATRIZ ARWLS MD [facility] [address] [address] 03/06/2019 15:51:24 03/06/2019 16:51:53 Replacement of total knee joint 555768384 Z96.651 Peroneal t endinitis of right lower limb 7797700647 19473 M76.71 [id number] MONALISA PATEL JR, MD [facility] [address] [facility] [address] [place] [address] 03/27/2019 15:58:33 03/28/2019 12:38:38 Benign prostatic hyperplasia with outflow obstruction 091696584 N40.1 Prostate s pecific antigen above reference range 207492897 R97.20 [id number] BEATRIZ RAWLS MD [facility] [address] [address] 09/20/2019 15:36:59 09/20/2019 16:57:49 History of right total knee replacement 5256296555 684084 Z96.651 s/p Right TKA on 08/30/2018 . [id number] BEATRIZ RAWLS MD [facility] [address] [address] 12/18/2019 12:45:22 12/18/2019 14:02:58 History of right total knee replacement 8759185090 643514 Z96.651 s/p Right TKA on 08/30/2018 . Iliotibial band friction syndrome of right knee 6128068484 06522 M76.31 [id number] BEATRIZ RAWLS MD [facility] [address] [address] 12/20/2019 10:17:03 12/20/2019 10:55:23 History of total knee arthroplasty 3907660568 105 Z96.135 [id number] BEATRIZ RAWLS MD [facility] [address] [address] 01/15/2020 10:02:15 01/15/2020 11:12:46 History of right total knee replacement 2476203479 160610 Z96.651 s/p Right TKA on 08/30/2018 . Pain in right knee 73707 65512 54086 M25.561 Z96.806 [id number] BEATRIZ RAWLS MD [facility] [address] [address] 01/26/2020 08:34:09 01/26/2020 10:32:52 History of total knee arthroplasty 5703192640 105 Z96.651 Iliotibial band friction syndrome of right knee 4845498823 97546 M76.31 Pain in right knee 17676 46121 00318 M25.561 Z96.177 [id number] MONALISA PATEL JR, MD [facility] [address] [facility] [address] [place] [address] 02/05/2020 13:04:04 02/06/2020 16:05:43 Benign prostatic hyperplasia with outflow obstruction 759319153 N40.1 Prostate s pecific antigen above reference range 715653220 R97.20 [id number] BEATRIZ RAWLS MD [facility] [address] [address] 03/11/2020 10:26:34 03/11/2020 11:02:59 History of total knee arthroplasty 2929148828 105 Z96.651 Contractur e of right knee joint 4607193129 37210 M24.221 [id number] BEATRIZ RAWLS MD [facility] [address] [address] 05/06/2020 12:36:28 05/06/2020 13:30:02 Contracture of right knee joint 4094210974 48100 M24.561 History of right total knee replacement 0960529520 847017 Z96.651 s/p Right TKA on 08/30/2018 . [id number] MONALISA PATEL JR, MD [facility] [address] [facility] [address] [place] [address] 01/06/2021 13:48:46 01/16/2021 10:01:53 Prostatitis 7175086 N41.9 Benign pro static hyperplasia with outflow obstruction 561091362 N40.1 Prostate s pecific antigen above reference range 723439929 R97.20 [id number] MONALISA PATEL JR, MD [facility] [address] [facility] [address] [place] [address] 04/07/2021 12:54:04 04/08/2021 09:13:17 Prostatitis 9641212 N41.9 Benign pro static hyperplasia with outflow obstruction 358718378 N40.1 Prostate s pecific antigen above reference range 512043260 R97.20 [id number] MONALISA PATEL JR, MD [facility] [address] [facility] [address] [place] [address] 06/16/2021 13:13:31 06/16/2021 18:23:34 Prostatitis 0712111 N41.9 Prostate s pecific antigen above reference range 319895445 R97.20 [id number] MONALISA PATEL JR, MD [facility] [address] [facility] [address] [place] [address] 07/28/2021 13:26:59 07/28/2021 17:46:52 Benign prostatic hyperplasia with outflow obstruction 593976414 N40.1 Prostatitis 8114250 N41. 9 Prostate s pecific antigen above reference range 723353473 R97.20 [id number] MONALISA PATEL JR, MD [facility] [address] [facility] [address] [place] [address] 02/02/2022 14:50:11 02/11/2022 20:32:18 Benign prostatic hyperplasia with outflow obstruction 426059255 N40.1 Prostate s pecific antigen above reference range 750990755 R97.20 [id number] MONALISA PATEL JR, MD [facility] [address] [facility] [address] [facility] [address] 08/03/2022 14:16:06 08/10/2022 04:11:29 Prostate specific antigen above reference range 870127576 R97.20 Benign pro static hyperplasia with outflow obstruction 104962516 N40.1 [id number] MONALISA PATEL JR, MD [facility] [address] [facility],[address] [address] 11/15/2023 15:09:09 11/15/2023 18:17:39 Benign prostatic hyperplasia with outflow obstruction 305518177 N40.1 Prostate s pecific antigen above reference range 785844575 R97.20 Microscopic hematuria 19 0548167 R31.29 Plan for workup if persists [id number] MONALISA PATEL JR, MD [facility] [address] [facility] 201 [facility] [address] 05/15/2024 14:06:39 05/22/2024 04:06:46 Prostate specific antigen above reference range 484178532 R97.20 continue observatio n. If continue to rise consider MRI prostate Benign pro static hyperplasia with outflow obstruction 117314131 N40.1 Health Concerns Section Related Observation LastModified by Organization Detai ls LastModified Time None Recorded Concern Status LastModified by Organization Details LastModified Time None Recorded Advance Directives Directive None Recorded Payers Insurance Date Sequence Insurance Name Policy Number Policy Yu Covered Member ID Yu Member ID Guarantor Name 08/01/2018 ANTONIA Grubbs Paresh R Kevin 05/21/2025 1 [place]MEDICARE REPLACEMENT REGIONAL PPO) [id number] Paresh R Kevin [id number] Paresh R Kevin 05/15/2024 1 [place] Paresh R Kevin [id number] Paresh R Kevin 05/15/2024 1 [place] [id number] A Bill Kevin [id number] Paresh R Kevin Notes Date Note Type Note Provider Name [...] total percentage 32.6% MONALISA PATEL JR, MD [address] [place] [address], [phone], [facility] 07/28/2021 14:18:13 02/02/2022 text/html Patient is in [...] total percentage 32.6% MONALISA PATEL JR, MD [facility] [place], [address], [facility] 02/11/2022 18:57:59 08/03/2022 text/html Patient is in [...] digital rectal exam MONALISA PATEL JR, MD [address] [place] [address], [phone], [facility] 08/09/2022 08:47:06 11/15/2023 text/html Patient is in [...] digital rectal exam MONALISA PATEL JR, MD [address] [place] [address], [phone], [facility] 11/22/2023 07:15:32 05/15/2024 text/html Patient is in today for follow-up of postoperative urinary retention and BPH. He is now voiding at baseline. He has not had any urinary retention episodes.No recent episodes of prostatitis Patient is now voiding normally. he is no longer using tamsulosin or finasteride. PSA 6.2, 18.9% 04/2024 Patient declines, digital rectal exam MONALISA PATEL JR, MD [address] [place] [address] [place], [address], [facility] 05/21/2024 16:08:44
--- OUTSIDE RECORDS SUMMARY | 2025-06-11 09:58 | XMS_ITS | Encounter Summary ---
Author Organization Healthcare Address [address] [place] [address] Care Team Providers Care Cooker Operator Name Role Phone Parrish Thurman MD Primary Care Provider + [phone] Encounter Details Date Type Department Care Team ([facility] st Contact Info) Description 04/18/2025 Telephone [facility] Hematology/BMT and Cellular Therapy Program [address] [address] Mohit Villarreal MD [address] [facility] [address] [place] [address] Social History Tobacco Use Types Packs/Day Years [...] drink first t kiet in the morning (EYE-TOOL MACHINE SETUP OPERATOR) to steady your nerves or to [...] with patient. [facility] will need to [facility] his appointments here. Patient did not want to schedule follow up with Dr. Villarreal at this time but will reach out if he needs follow up visit. * Telephone Encounter - Dawn Hernandez - 04/18/2025 2:36 PM EDT Patient called to cancel infusion Callback number: [phone] documented in this encounter Plan of Treatment Upcoming Encounters Date Type Department Care Team (Late st Contact Info) Description 12/07/2025 1:00 PM EDT Office Visit Medical Office Building [facility] [address], [address] [place] [address] Afshan Bryan MD [address] [place] [address] documented as of this encounter [...] documented as of this encounter Care Teams Cooker Operator Relationship Specialty Start Date End Date Parrish Thurman MD [address] [place] [phone] PCP - General 10/19/24 documented as of this encounter
--- OUTSIDE RECORDS SUMMARY | 2025-06-11 09:58 | XMS_ITS | Encounter Summary ---
Author Organization [employer] ([place], [place], [place], [place], [place]) Address [address] [place] [address] Care Team Providers Care Top Executive Name Role Phone Unavailable Primary Care Provider Unavailabl e Encounter Details Date Type Department Care Team (Late st Contact Info) Description 08/31/2018 Transcribed Document [facility] [place] [address] [place] [address] ProviderTree MD [address] [place] [address] Social History Tobacco Use Types [...] - Tree ProviderMD - 08/31/2018 12:00 PM BIZTALK ADMINISTRATOR Pain Assessment Entered On: 08/31/2018 15:28 EST [...] the text rendition version of the form. Electronically signed by Interface, [employer] Conversion Shirring Machine Operator Cerner at 10/27/2022 8:04 PM CDT documented in this encounter Plan of Treatment Not on file documented as of this encounter Visit Diagnoses Not on filedocumented in this encounter
--- OUTSIDE RECORDS SUMMARY | 2025-06-11 09:58 | XMS_ITS | Encounter Summary ---
Author Organization [employer] ([place], [place], [place], [place], [place]) Address [address] [place] [address] Care Team Providers Care Car Wiper Name Role Phone Unavailable Primary Care Provider Unavailabl e Encounter Details Date Type Department Care Team (Late st Contact Info) Description 08/31/2018 Transcribed Document [facility] [place] [facility] [address] [place] [address] ProviderTree MD [address] [place], [place] [id number] Social History Tobacco Use Types Packs/Day Years [...] Tree Alonso MD - 08/31/2018 7:06 AM CEMETERY WORKER Patient: PETRA VILLALBA Age: 62 years Sex: Male : 1955 Associated Diagnoses: None Author: BEATRIZ RAWLS MD-ORT Alert, walked by himself yesterday as PT had gone home. Afeb VS stable distal nvs intact xrays good Hb 15.4 to 14.0 post op stable Plan: walk, dc home Lovenox, percocet 5 RTO 2 weeks Electronically signed by [facility] Conversion Land Acquisition Specialist Cerner at 10/27/2022 8:14 PM CDT documented in this encounter Plan of Treatment Not on file documented as of this encounter Visit Diagnoses Not on filedocumented in this encounter
--- OUTSIDE RECORDS SUMMARY | 2025-06-11 09:58 | XMS_ITS | Encounter Summary ---
Author Organization [employer] ([place], [place], [place], [place], [place]) Address [address] [place] [address] Care Team Providers Care Laborer Tin Can Name Role Phone Unavailable Primary Care Provider Unavailabl e Encounter Details Date Type Department Care Team (Late st Contact Info) Description 08/31/2018 Transcribed Document [facility] [place] [facility] [place] [address] ProviderTree MD [facility] [place] [id number] Social History Tobacco Use Types Packs/Day Years [...] - Tree ProviderMD - 08/31/2018 12:39 PM MACHINE OPERATOR HOP PICKER Treatment Intervention, PT Entered On: 08/31/2018 16:05 [...] AM-PAC Basic Mobility Standardized Score : 43.63 AM-[facility] Basic Mobility CMS 0-100% Score [...] CARLOS CASTILLO, PT - 08/31/2018 15:55 EST Marketing Programs Specialist Goals Mobility/Bed Mobility LTG PT Grid Goal [...] Patient was independent with TKR HEP. Joint assistant coach was present for teaching and states [...] CARLOS CASTILLO, PT - 08/31/2018 15:55 EST [place] PT Charges PT Therap. Exercise 15 min : 1 Gait Training Each 15 Min : 2 CARLOS CASTILLO PT - 08/31/2018 15:55 EST documented in this encounter Plan of Treatment Not on file documented as of this encounter Visit Diagnoses Not on filedocumented in this encounter
--- OUTSIDE RECORDS SUMMARY | 2025-06-11 09:58 | XMS_ITS | Encounter Summary ---
Author Organization [employer] ([place], [place], [place], [place], [place]) Address [address] [place] [address] Care Team Providers Care Leather Tooler Name Role Phone Unavailable Primary Care Provider Unavailabl e Encounter Details Date Type Department Care Team (Late st Contact Info) Description 08/31/2018 Transcribed Document [facility] [place] [facility] [place] [address] ProviderTree MD [address] [place] [address] Social History Tobacco Use Types Packs/Day [...] Tree Alonso MD - 08/31/2018 7:23 AM OXYGEN EQUIPMENT AIDE [address] [place] [address] Patient Copy Patient Information: Name: PETRA VILLALBA Current Date: 08/31/2018 07:23:32 : 1955 Patient Address: [address] [place] [id number] Patient Attending Physician: BEATRIZ RAWLS MD-ORT Primary Care Provider: BILL VENTURA MD-KATHLEEN Primary Care Provider Discharge Diagnosis: Weight on Admission: 224 lb, 0 oz Comment: Follow-up Instructions: With: Address: When: BEATRIZ RAWLS [address] [place], [place] [address] [place] [place] [address] [facility] (1) 11:00 AM Discharge Instructions: Immunizations [...] nasal (fluticasone 50 mcg/inh nasal spray) 1 [place](s) Nostrils Both Every Day. fluticasone/umeclidinium/vilanterol (Trelegy Ellipta) [...] Assistance with quitting is available by contacting 8-517-AVCI-NOW. This is a free resource providing counseling, [...] Be sure to sign up for the Paltalk patient portal, which gives you 01/02 access to your medical information ??? including these discharge instructions ??? using your computer, smartphone, or tablet. Just go to [employer] to get started. Questions? Call . [facility] would like to thank you for allowing us to assist you with your healthcare needs. DEEJAY Pacheco BILL RAY, (or customer service representative) have received the above patient education materials/instructions and have verbalized understanding: Patient Signature _ Date/Time Patient Vice President Of Compliance Signature (if needed) Date/Time Clinician/Hospital Vice President Of Compliance Signature (if needed) Date/Time documented in this encounter Plan of Treatment Not on file documented as of this encounter Visit Diagnoses Not on filedocumented in this encounter
--- OUTSIDE RECORDS SUMMARY | 2025-06-11 09:58 | XMS_ITS | Encounter Summary ---
Author Organization [employer] ([place], [place], [place], [place], [place]) Address [address] [place] [address] Care Team Providers Care Trademark Attorney Name Role Phone Unavailable Primary Care Provider Unavailabl e Encounter Details Date Type Department Care Team (Late st Contact Info) Description 08/31/2018 Transcribed Document [facility] [place] [facility] [place] [address] ProviderTree [place] [facility] [place] [address] Social History Tobacco Use Types [...] Tree Alonso MD - 08/31/2018 10:44 AM TURKEY PINNER Discharge Instructions Entered On: 08/31/2018 10:46 EST Performed On: 08/31/2018 10:44 EST by Xochilt Ba RN DC Instructions HWD Medical Equipment For Home Use : [facility]--[phone] Home Health Services : [facility]--[phone] Christina Meyers RN - 08/31/2018 11:25 EST [...] 08/31/2018 10:44 EST Electronically signed by Amira, [facility] Conversion Supervisor Maintenance And Custodians Cerner at 10/27/2022 8:16 PM CDT documented in this encounter Plan of Treatment Not on file documented as of this encounter Visit Diagnoses Not on filedocumented in this encounter
--- OUTSIDE RECORDS SUMMARY | 2025-06-11 09:58 | XMS_ITS | Encounter Summary ---
Author Organization Healthcare Address [address] [place] [address] Care Team Providers Care Metallurgical Engineering Technician Name Role Phone Parrish Thurman MD Primary Care Provider + [phone] Encounter Details Date Type Department Care Team (Late st Contact Info) Description 04/26/2025 Telephone [facility] [address] [place] [phone] Victorina Hurt, PharmD [facility] [place] [address] Social History Tobacco Use Types Packs/Day Years [...] in the past 12 m [facility], were you homeless or living [...] drink first t kiet in the morning (EYE-ANIMAL TRAPPER) to steady your nerves or to get [...] Start Date Job End Date 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 file Not on file Not on file documented as of this encounter Plan of Treatment Upcoming Encounters Date Type Department Care Team (Late st Contact Info) Description 12/07/2025 1:00 PM EDT Office Visit Medical Office Building [facility] [address], [address] [place] [address] Afshan Bryan MD [address] [place] [address] documented as of this encounter [...] documented as of this encounter Care Teams Metallurgical Engineering Technician Relationship Specialty Start Date End Date Parrish Thurman MD [address] [facility] [address] [address] PCP - General 10/19/24 documented as of this encounter
--- OUTSIDE RECORDS SUMMARY | 2025-06-11 09:58 | XMS_ITS | Encounter Summary ---
Author Organization [employer] ([place], [place], [place], [place], [place]) Address [address] [place] [address] Care Team Providers Care Reimbursement Specialist Name Role Phone Unavailable Primary Care Provider Unavailabl e Encounter Details Date Type Department Care Team (Late st Contact Info) Description 08/31/2018 Transcribed Document [facility] [place] Medicine [facility] [place] [address] ProviderTree MD [facility] [place], [place] [id number] Social History Tobacco Use Types Packs/Day Years [...] Tree Alonso MD - 08/31/2018 3:00 PM EDGER SAW OPERATOR Orthopedic Nurse Navigator Entered On: 08/31/2018 15:03 EST Performed On: 08/31/2018 15:00 EST by JUAN FRAZIER Rn-Ortho Nurse Navigator Orthopedic Nurse Navigator Assessment Attended Joint Academy : Yes Joint AcademyType : In person Joint Academy Date : 08/19/2018 EST Joint Job Setter Honing Attended Academy : Yes Joint Job Setter Honing Name : [place] Type of Surgery : Total Knee Replacement, Right Does Patient Have a Walker? : No Walker/toilette Ordered for After Discharge : Yes Anticipated Discharge Plan : Home Health PT Anticipated Discharge Plan Comment : Patient plan set at Joint Academy to d/c home with the help of his and [facility]. Patient [...]
--- OUTSIDE RECORDS SUMMARY | 2025-06-11 09:58 | XMS_ITS | Encounter Summary ---
Author Organization [facility] Address [address] [place] [address] Care Team Providers Care Basket Machine Operator Name Role Phone Parrish Thurman MD Primary Care Provider + [phone] Reason for Visit * Reason Comments Med Refill Encounter Details Date Type Department Care Team ([facility] st Contact Info) Description 01/06/2025 Refill [facility] [address], [address] [place] [address] Hilario Burger MD [address] [place] [address] Vitamin D deficiency Social History [...] the past 12 m [facility], were you homeless or living in a [...] drink first t kiet in the morning (EYE-MITER CUTTER) to steady your nerves or to get [...] Start Date Job End Date 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 file Not on file Not on file documented as of this encounter Plan of Treatment Upcoming Encounters Date Type Department Care Team (Late st Contact Info) Description 12/07/2025 1:00 PM EDT Office Visit Medical Office Building Surgery [facility] [address], [address] [place] [address] Afshan Bryan MD [address] [place] [address] documented as of this encounter [...] documented as of this encounter Care Teams Basket Machine Operator Relationship Specialty Start Date End Date Parrish Thurman MD [address] [facility] [address] [place] [address] PCP - General 10/19/24 documented as of this encounter
--- OUTSIDE RECORDS SUMMARY | 2025-06-11 09:58 | XMS_ITS | Encounter Summary ---
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 [address] [place] [address] Patient Copy Patient Information: Name: PETRA VILLALBA Current Date: 08/31/2018 14:47:08 : 1955 Patient Address: [address] [place] [id number] Patient Attending Physician: BEATRIZ RAWLS MD-ORT Primary Care Provider: BILL VENTURA MD-KATHLEEN Primary Care Provider Discharge Diagnosis: Weight on Admission: 224 lb, 0 oz Comment: Follow-up Instructions: With: Address: When: BEATRIZ RAWLS [address] [employer], [place] [phone] Business (1) 11:00 AM Discharge Instructions: Diet [...] incision site Medical Equipment for Home Use: 2[employer]--[phone] [facility][phone] Immunizations Documented During Stay: No Immunizations Found [...] nasal (fluticasone 50 mcg/inh nasal spray) 1 [place](s) Nostrils Both Every Day. fluticasone/umeclidinium/vilanterol (Trelegy Ellipta) [...] 10/23/2013 Document Revised: 07/19/2015 Document Reviewed: 06/13/2016 GreenLancer Interactive Patient Education ? 2017 [employer]. Wound Infection Introduction A wound infection happens [...] instructions at home: Medicines??? Take or apply hekc-rvw-canfeqa and prescription medicines only as told by [...] cannot use soap and water, use hand core sucker. ? Change your bandage as told by [...] these instructions at home: Medicines ??? Take gjxi-mut-xubdbth and prescription medicines only as told by [...] cannot use soap and water, use hand core sucker. ? Change your bandage as told by [...] 09/19/2012 Document Revised: 03/01/2017 Document Reviewed: 06/03/2016 GreenLancer Interactive Patient Education ? 2017 GreenLancer Inc. Medication Leaflets: tamsulosin (durant angeline FEROZ [...] may report side effects to FDA at 7-252-UEE-2422. What other drugs will affect tamsulosin? Tell [...] may affect tamsulosin. This includes prescription and dwqd-fai-exzbcog medicines, vitamins, and herbal products. Not all [...] to ensure that the information provided by [employer]. ('Multum') is accurate, up-to-date, and complete, but no guarantee is made to that effect. Drug information contained herein may be time sensitive. [employer]oGen information has been compiled for use by healthcare practitioners and consumers in the [place] and therefore [employer]oGen does not warrant that uses outside of the [place] are appropriate, unless specifically indicated otherwise. [employer]'s drug information does not endorse drugs, diagnose patients or recommend therapy. [employer] drug information is an informational resource designed [...] effective or appropriate for any given patient. [facility] does not assume any responsibility for any aspect of healthcare administered with the aid of information [facility] provides. The information contained herein is not intended to cover all possible uses, directions, precautions, warnings, drug interactions, allergic reactions, or adverse effects. If you have questions about the drugs you are taking, check with your doctor, nurse or pharmacist. Copyright 1407-4927 [facility]. Version: 9.01. Revision Date: 06/06/2018. enoxaparin (ee [...] may report side effects to FDA at 0-772-QKP-2007. What other drugs will affect enoxaparin? Tell [...] drugs may affect enoxaparin, including prescription and upts-xhi-ezubpaz medicines, vitamins, and herbal products. Not all [...] to ensure that the information provided by [employer]. ('Multum') is accurate, up-to-date, and complete, but no guarantee is made to that effect. Drug information contained herein may be time sensitive. [employer]oGen information has been compiled for use by healthcare practitioners and consumers in the [place] and therefore [employer] does not warrant that uses outside of the [place] are appropriate, unless specifically indicated otherwise. [employer]'s drug information does not endorse drugs, diagnose patients or recommend therapy. [employer] drug information is an informational resource designed [...] effective or appropriate for any given patient. [employer] does not assume any responsibility for any aspect of healthcare administered with the aid of information [employer] provides. The information contained herein is not intended to cover all possible uses, directions, precautions, warnings, drug interactions, allergic reactions, or adverse effects. If you have questions about the drugs you are taking, check with your doctor, nurse or pharmacist. Copyright 0479-0936 [facility]. Version: .. Revision Date: 10/14/2017. acetaminophen and [...] may report side effects to FDA at 8-372-YET-5212. What other drugs will affect acetaminophen and [...] affect acetaminophen and oxycodone, including prescription and aica-loa-rehvfcp medicines, vitamins, and herbal products. Not all [...] to ensure that the information provided by [employer]. ('Multum') is accurate, up-to-date, and complete, but no guarantee is made to that effect. Drug information contained herein may be time sensitive. [employer] information has been compiled for use by healthcare practitioners and consumers in the [place] and therefore [employer] does not warrant that uses outside of the [place] are appropriate, unless specifically indicated otherwise. [employer] drug information does not endorse drugs, diagnose patients or recommend therapy. [employer] drug information is an informational resource designed [...] effective or appropriate for any given patient. [employer] does not assume any responsibility for any aspect of healthcare administered with the aid of information [employer] provides. The information contained herein is not intended to cover all possible uses, directions, precautions, warnings, drug interactions, allergic reactions, or adverse effects. If you have questions about the drugs you are taking, check with your doctor, nurse or pharmacist. Copyright 4930-5365 [employer]. Version: 18.02. Revision Date: 06/08/2018. CIGARETTE SMOKING: The facts are clear, cigarette smoking will shorten your life. Smoking can cause many illnesses along the way. As a healthcare provider, we recommend that you stop smoking. Assistance with quitting is available by contacting 7-830-RAJS-NOW. This is a free resource providing counseling, [...] Be sure to sign up for the CallmyName patient portal, which gives you 01/02 access to your medical information ??? including these discharge instructions ??? using your computer, smartphone, or tablet. Just go to Ineda Systems to get started. Questions? Call . [facility] would like to thank you for allowing us to assist you with your healthcare needs. DEEJAY Pacheco BILL RAY, (or insurance verification representative) have received the above patient education materials/instructions and have verbalized understanding: Patient Signature _ Date/Time Patient Displayer Merchandise Signature (if needed) Date/Time Clinician/Hospital Displayer Merchandise Signature (if needed) Date/Time Electronically signed by Amira [facility] Conversion Diplomatic Interpreter/Translator Justinner at 10/27/2022 8:07 PM CDT documented in this encounter Plan of Treatment Not on file documented as of this encounter Visit Diagnoses Not on filedocumented in this encounter
--- OUTSIDE RECORDS SUMMARY | 2025-06-11 09:58 | XMS_ITS | Encounter Summary ---
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
--- OUTSIDE RECORDS SUMMARY | 2025-06-11 09:58 | XMS_ITS | Encounter Summary ---
Author Organization [employer] ([place], [place], [place], [place], [place]) Address [address] [place] [address] Care Team Providers Care Formula Mixer Name Role Phone Unavailable Primary Care Provider Unavailabl e Encounter Details Date Type Department Care Team (Late st Contact Info) Description 08/31/2018 Transcribed Document [facility] [place] [address] [place] [address] ProviderTree MD [address] [place] [id number] Social History Tobacco Use Types Packs/Day Years [...] - Tree ProviderMD - 08/31/2018 2:59 PM ENGINEERING PROFESSOR Education-Surgery Entered On: 08/31/2018 14:59 EST Performed On: 08/31/2018 14:59 EST by JUAN FRAZIER Rn-Ortho Nurse Navigator Teaching/Learning Assessment Individuals Taught : Patient, Spouse Readiness to Learn : Cooperative Readiness to Learn : Demonstration, Explanation, Video/Educational TV Education Comment : Incentive Spirometry taught at [facility] JUAN FRAZIER Rn-Ortho Nurse Elizaator - 08/31/2018 14:59 EST Education Topics, Periop Preadmission Perioperative Education Grid Incentive Spirometry : Verbalizes understanding JUAN FRAZIER Rn-Ortho Nurse Elizaator - 08/31/2018 14:59 EST Electronically signed by Dev Collier Conversion Vice President Talent Management Cerner at 10/27/2022 7:59 PM CDT documented in this encounter Plan of Treatment Not on file documented as of this encounter Visit Diagnoses Not on filedocumented in this encounter
--- OUTSIDE RECORDS SUMMARY | 2025-06-11 09:58 | XMS_ITS | Encounter Summary ---
Author Organization Healthcare Address [address] [place] [id number] Care Team Providers Care Card Mounter Name Role Phone Parrish Thurman MD Primary Care Provider + [phone] Reason for Visit * Reason Comments Med Refill Encounter Details Date Type Department Care Team ([facility] st Contact Info) Description 04/27/2025 Refill [facility] Hematology/BMT and Cellular Therapy Program [address] [address] Mohit Villarreal MD [address] [facility] [address] [place] [address] Multiple myeloma not having achieved remission (CMS/HCC) [...] any time in the past 12 m 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 file Not on file Not on file documented as of this encounter Plan of Treatment Upcoming Encounters Date Type Department Care Team ([facility] st Contact Info) Description 12/07/2025 1:00 PM EDT Office Visit Medical Office Building Surgery Sp[facility] [address], [address] [place] [address] Afshan Bryan MD [address] [place] [address] documented as of this encounter [...] documented as of this encounter Care Teams Card Mounter Relationship Specialty Start Date End Date Parrish Thurman MD [address] [facility] [address] [place] [phone] PCP - General 10/19/24 documented as of this encounter
--- OUTSIDE RECORDS SUMMARY | 2025-06-11 09:58 | XMS_ITS | Encounter Summary ---
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 Take or apply xppz-dwr-kfznhip and prescription medicines only as told by [...] cannot use soap and water, use hand glass loading equipment tender. ? Change your bandage as told by [...] these instructions at home: Medicines ??? Take dbzc-hth-djyocyu and prescription medicines only as told by [...] cannot use soap and water, use hand glass loading equipment tender. ? Change your bandage as told by [...] 09/19/2012 Document Revised: 03/01/2017 Document Reviewed: 06/03/2016 Transcepta Interactive Patient Education ? 2017 [employer]cepta Inc. Urology Plascencia Catheter Care, Adult A [...] 10/23/2013 Document Revised: 07/19/2015 Document Reviewed: 06/13/2016 ElseJooix Interactive Patient Education ? 2017 [employer]a Inc. documented in this encounter Plan of Treatment Not on file documented as of this encounter Visit Diagnoses Not on filedocumented in this encounter
--- OUTSIDE RECORDS SUMMARY | 2025-06-11 09:59 | XMS_ITS | Clinical Summary ---
Author Organization [facility] Address [address] [place] [address] Phone [email or web address] Care Team Providers Care Set Up Technician Name Role Phone Handy Pennington Primary Care Provider [phone] Allergies No known active allergies Medications fluticasone [...] Insurance XIN [place] 5 Care Teams Set Up Technician Relationship Specialty Start Date End Date Handy Pennington [address] [place] [phone] PCP - General General Surgery 09/11/19
[2025-06-11 10:12] LABS: Hematocrit 35.1 % (42.0-52.0); Hemoglobin 11.2 g/dL (14.1-18.0); Immature Granulocytes % 0.5 %; Mean Corpuscular HGB Conc 31.9 g/dL (31.8-35.4); Mean Corpuscular Hemoglobin 27.7 pg (27.0-31.2); Mean Corpuscular Volume 86.9 fl (80-94); Nucleated Red Blood Cells % 0 %; Platelet Count 155 K/mm3 (142-424); Red Blood Count 4.04 M/mm3 (4.60-6.20); Red Cell Distribution Width-SD 54.0 fL; White Blood Count 6.2 K/mm3 (4.8-10.8)
[2025-06-11 10:31] LABS: Alanine Aminotransferase 33 U/L (12-78); Albumin Level 3.9 g/dl (3.5-5.0); Albumin/Globulin Ratio 1.6 (1.1-1.8); Alkaline Phosphatase 91 U/L (38-126); Anion Gap 8.8 mEq/L (5-15); Aspartate Amino Transferase 30 U/L (17-59); Bilirubin,Total 1.3 mg/dl (0.2-1.3); Blood Urea Nitrogen 16 mg/dl (9-20); Calcium 9.4 mg/dl (8.4-10.2); Carbon Dioxide 26 mmol/L (22.0-30.0); Chloride 106 mmol/L (98-107); Creatinine Clearance Estimated 108 mL/min (50-200); Creatinine,Serum 0.90 mg/dl (0.66-1.25); Estimated Glomerular Filt Rate 84 ml/min (>60); GFR (African American) 102 ML/MIN (>60); Globulin 2.4 g/dL (1.3-3.2); Glucose 90 mg/dl (74-100); Potassium 3.8 mmoL/L (3.5-5.1); Sodium 137 mmol/L (136-145); Total Protein,Serum 6.3 g/dl (6.3-8.2)
[2025-06-11] MEDS: SODIUM CHLORIDE 0.9% 500ML BAG 500 ML IV (10:49)
[2025-06-11] MEDS: DEXAMETHASONE 4MG TABLET 40 MG PO (10:49)
[2025-06-11 11:00] VITALS: BP 136/89; PULSE 89; RESP 18; O2SAT 95
[2025-06-11] MEDS: DEXTROSE 5 % IN WATER 100 ML IV (11:24)
[2025-06-11 11:30] VITALS: BP 130/67; PULSE 86; RESP 18; O2SAT 96
[2025-06-11 11:45] VITALS: BP 135/59; PULSE 73; RESP 18; O2SAT 96
[2025-06-11 11:55] VITALS: BP 135/65; PULSE 78; RESP 18; O2SAT 96
[2025-06-11] MEDS: SODIUM CHLORIDE 0.9% 10ML FLUSH SYRINGE 10 ML IV (12:32)
[2025-06-11 12:35] VITALS: BP 123/58; PULSE 77; RESP 18; O2SAT 95
== END 2025-06-11 23:59 | disposition home or self-care (01) ==
PROVIDERS: PCP Family Medicine; Visit Provider Internal Medicine Medical Oncology
DX: C90.00 Multiple myeloma not having achieved remission (principal); Z51.11 Encounter for antineoplastic chemotherapy
CPT/HCPCS: 80053; 85025; 96409; J1642; J7040; J8540; J9047

== ENCOUNTER 2025-06-18 10:07 | Outpatient (CLI) | payer MEDICARE, SELFPAY ==
[2025-06-18 10:20] VITALS: BMI 36.1
[2025-06-18 10:30] LABS: Hematocrit 33.9 % (42.0-52.0); Hemoglobin 10.9 g/dL (14.1-18.0); Immature Granulocytes % 0.5 %; Mean Corpuscular HGB Conc 32.2 g/dL (31.8-35.4); Mean Corpuscular Hemoglobin 28.5 pg (27.0-31.2); Mean Corpuscular Volume 88.7 fl (80-94); Nucleated Red Blood Cells % 0 %; Platelet Count 61 K/mm3 (142-424); Red Blood Count 3.82 M/mm3 (4.60-6.20); Red Cell Distribution Width-SD 55.5 fL; White Blood Count 7.4 K/mm3 (4.8-10.8)
[2025-06-18 10:35] LABS: Alanine Aminotransferase 28 U/L (12-78); Albumin Level 3.8 g/dl (3.5-5.0); Albumin/Globulin Ratio 1.5 (1.1-1.8); Alkaline Phosphatase 86 U/L (38-126); Anion Gap 14.8 mEq/L (5-15); Aspartate Amino Transferase 24 U/L (17-59); Bilirubin,Total 1.2 mg/dl (0.2-1.3); Blood Urea Nitrogen 23 mg/dl (9-20); Calcium 9.6 mg/dl (8.4-10.2); Carbon Dioxide 20 mmol/L (22.0-30.0); Chloride 110 mmol/L (98-107); Creatinine Clearance Estimated 90 mL/min (50-200); Creatinine,Serum 1.20 mg/dl (0.66-1.25); Estimated Glomerular Filt Rate 60 ml/min (>60); GFR (African American) 73 ML/MIN (>60); Globulin 2.6 g/dL (1.3-3.2); Glucose 131 mg/dl (74-100); Potassium 3.8 mmoL/L (3.5-5.1); Sodium 141 mmol/L (136-145); Total Protein,Serum 6.4 g/dl (6.3-8.2)
[2025-06-18] MEDS: FUROSEMIDE 20 MG/2 ML VIAL (11:57)
--- NOTE | 2025-06-18 15:15 | CA_ITS ---
APPROVED REPORT EXAM: Comprehensive 2D, Doppler, and color-flow Echocardiogram Surgical Scrub Technologist: Smitha Dash RT(R) Ht: 5 ft 8 in Wt: 251lbs BSA: 2.25 BP: 134/76 mmHg Indications: Multiple myeloma currently on chemo Echo Enhancing Agent Indication: Endocardial border delineation Agent(s) / Amount(s) Used: Definity 2 cc 2D Dimensions EF AP4 52.70 % GL Strain -16.3 % M-Mode Dimensions RVDd 3.70 cm (0.9-2.6) LA Diam 4.00 cm (1.9-4.0) LVDd 3.79 cm (3.5-5.7) LVDs 2.67 cm (3.5-5.7) IVSd 1.12 cm (0.6-1.1) PWd 1.12 cm (0.6-1.1) EF (Teich) 57.30% FS 29.60% EDV (Teich) 61.60 mL ESV (Teich) 26.30 mL LV Diastology E Decel Time 243 (160-240 msec) E/A Ratio 0.8 Mitral Valve MV E Max Jorge. 73.0 (40-130 cm/s) MV A Velocity 87.0 (40-130 cm/s) E/A Ratio 0.84 MV PHT 71.0 ms Left Ventricle The left ventricle is normal size. Left ventricular systolic function is normal. The left ventricular ejection fraction is within the normal range. There is marked increase in left ventricular wall thickness. IVSd 1.4 cm. There is normal LV segmental wall motion. The left ventricular diastolic function is indeterminate No left ventricle thrombus noted on this study. LVEF is 60%. Right Ventricle The right ventricle is normal size. The right ventricular systolic function is normal. Atria Left atrium is mildly dilated. Right atrium is mildly dilated. There is no color Doppler evidence of interatrial shunt. Aortic Valve The aortic valve is mildly thickened. There is no hemodynamically significant aortic valvular stenosis. Trace aortic regurgitation is present. Mitral Valve The mitral valve is normal in structure. No evidence of mitral valve stenosis. Trace mitral regurgitation is present. Tricuspid Valve The tricuspid valve leaflets are thin and pliable. Trace tricuspid regurgitation. There is insufficient TR jet to estimate RVSP. Pulmonic Valve The pulmonary valve is grossly normal in structure. Trace pulmonic valve regurgitation is present. Great Vessels The aortic root is normal in size. IVC is normal in size and collapses >50% with inspiration. Pericardium There is no pericardial effusion. Other Information Study Quality: Technically Difficult Conclusion Normal biventricular systolic function. There is marked increase in left ventricular wall thickness. IVSd 1.4 cm. Biatrial dilation. No significant valvular stenosis or regurgitation. In the setting of known history of multiple myeloma, increased LV wall thickness, and biatrial dilation, further evaluation for amyloidosis is suggested with cardiac MRI (amyloidosis protocol), PYP nuclear testing, and lab work-up. Electronically signed by : Nissa Bradshaw MD 06/22/2025 16:46:11
[2025-06-18] MEDS: DEFINITY US ECHO CONTRAST 2ML INJ 2 MG IV (16:27)
== END 2025-06-18 23:59 | disposition home or self-care (01) ==
LOC: INF 14:48 → RT 15:29
PROVIDERS: PCP Family Medicine; Visit Provider Internal Medicine Medical Oncology
DX: C90.00 Multiple myeloma not having achieved remission (principal); I51.7 Cardiomegaly
CPT/HCPCS: 36591; 80053; 85025; 93306; 96374; J1642; J1938; Q9957

== ENCOUNTER 2025-06-26 09:46 | Outpatient (CLI) | payer MEDICARE, SELFPAY ==
--- OUTSIDE RECORDS SUMMARY | 2024-07-19 08:45 | XMS_ITS ---
Author Organization [facility] Address [address] [place] [id number] Care Team Providers Care Rebeamer Name Role Phone Funmi Thurman Primary Care Provider [phone] FUNMI THURMAN Unavailable Unavailable Allergies Allergen (clinical drug ingredient) Drug/Non Drug Allergy documented on EMR Reaction Allergy Type Onset Date Status rosuvastatin Crestor muscle aches Drug Allergy A ctive Results Component Value Reference Range Notes P-Comprehensive Metabolic Pa waqar (CMP) Reviewed date:07/20/2024 12:41:50 PM Interpretation:ast 99, bili 1.4 Performing Lab: Notes/Report: CLIA: [id number] Rodríguez Cohen MD, Barbed Wire Machine Operator [facility] , [address], [place] [address] Test performed by [employer], [facility] Sodium 140 135-145 mmol/L Potassium 3.7 3.5-5.3 mmol/L Chloride 102 97-108 mmol/L CO2 25 22-32 mmol/L Glucose 99 65-99 mg/dL BUN 17 8-23 mg/dL Creatinine 1.23 0.70-1.30 mg/dL Calcium 10.4 8.6-10.4 mg/dL eGFR by Creatinine 64 >59 mL/min/1.73m2 Protein 6.7 6.0-8.3 g/dL Albumin 4.4 3.5-5.3 g/dL Alkaline Phosphatase 74 40-129 IU/L ALT (SGPT) 45 <5-55 IU/L AST (SGOT) 99 <5-46 IU/L Bilirubin, Total 1.4 <0.2-1.2 mg/dL A/G Ratio 1.9 1.1-2.5 P-Lipid Panel Reviewed date:07/20/2024 12:41:50 PM Interpretation:chol 220, col/hdl 5.5, non-hdl 180, ldl 151, ldl/hdl 3.8 Performing Lab: Notes/Report: Test performed by [employer] [address] [place] [address] , [address], [place] [address] Rodríguez Cohen MD, Barbed Wire Machine Operator CLIA: [id number] Cholesterol 220 <200 mg/dL Triglycerides 144 <150 mg/dL HDL Cholesterol 40 >39 mg/dL Cholesterol / HDL Ratio 5.50 0.00-4.99 Ratio Non-HDL Cholesterol 180 <130 mg/dL LDL Cholesterol (Calculation) 151 <130 mg/dL LDL Cholesterol Levels* Less than 100 mg/dL Optimal 100 to 129 mg/dL Near Optimal/ Above Optimal 130 to 159 mg/dL Borderline High 160 to 189 mg/dL High 190 mg/dL and above Very High * Categories as recommended by the 2004 ATPIII guidelines LDL/HDL Ratio 3.8 <3.3 Ratio LDL Cholesterol Patient History Test Date: 08/04/2023 LDL Results: 154 Units: mg/dL % Change: - Test Date: 07/19/2024 LDL Results: 151 Units: mg/dL % Change: -1% P-PSA Free and Total Reviewed date:07/20/2024 12:41:50 PM Interpretation:8.65 Performing Lab: Notes/Report: Test performed by [employer] [address] [place], [place] [address] [place] , [place] [address] Rodríguez Cohen MD, Barbed Wire Machine Operator CLIA: [id number] PSA 8.65 <4.00 ng/mL Please note this is an ultrasensitive PSA assay with a lower limit of detection of 0.014 ng/mL. This test is performed by the [employer] ECLIA methodology. Values obtained with different assay methods or kits cannot be directly compared. PSA Free 2.23 This test is performed by the [employer] ECLIA methodology. Values obtained with different assay methods or kits cannot be directly compared. fPSA, PCT 25.78 PROBABILITY OF PROSTATE CANCER (For Men with Non-suspicious GORDON Results and PSA Between 4 and 10 ng/ml, by Patient Age) % Free PSA PATIENT AGE 50 to 64 Years 65 to 75 Years 0.00 to 10.00% 56% 55% 10.01 to 15.00% 24% 35% 15.01 to 20.00% 17% 23% 20.01 to 25.00% 10% 20% > / = 25.01% 5% 9% P-TSH reflex to FT4 Reviewed date:07/20/2024 12:41:50 PM Interpretation:Normal Performing Lab: Notes/Report: Test performed by [employer] [address] [place], [place] [address] [address] , [address], [place] [address] Rodríguez Cohen MD, Barbed Wire Machine Operator CLIA: [id number] TSH reflex to FT4 1.43 0.43-5.25 mU/L P-Microalbumin/Creatinine, R andom Urine Sample Reviewed date:07/20/2024 12:41:50 PM Interpretation:a/c 36 Performing Lab: Notes/Report: Test performed by [employer] [address] [place], [place] [address] [address] , [address], [place] [address] Rodríguez Cohen MD, Barbed Wire Machine Operator CLIA: [id number] Albumin/Creatinine Ratio, Urine 36 0-30 ug/mg Microalbumin, Urine, Random 3.6 Creatinine, Urine 98.9 REASON FOR VISIT 6 months Medications Medication SIG (Take, Route, Frequency, Duration) Notes Start Date End Date Status Triamterene-HCTZ 37.5-25 MG 1 tab(s) orally once a day; Duration: 90 days Active Metaxalone 800 MG 1 tablet Orally Thre e times a day as needed 06/28/2024 Active traMADol HCl 50 MG 1 tablet as needed Orally every 6 hours 07/14/2024 Active Ibuprofen 200 MG 1 tab(s) orally prn Active Omeprazole 20 MG 1 capsule 30 minutes before morning meal Orally Once a day; Duration: 90 days Active Trelegy Ellipta 100-62.5-25 MCG/ACT INHALE 1 PUFF BY MOUTH ONCE DAILY FOR 30 DAYS; Duration: 30 Active Livalo 2 MG 1 tablet Orally Once a day 01/26/2024 Not-Taking Fluticasone Propionate 50 MCG/ACT USE 1 SPRAY(S) IN EACH NOSTRIL ONCE DAILY FOR 30 DAYS; Duration: 60 Active Levalbuterol HCl 1.25 MG/3ML 3 ml by nebulizer q 4 hours as needed; Duration: 90 days Active Albuterol Sulfate HFA 108 (90 Base) MCG/ACT 2 puff(s) inhaled 4 times a day as needed Active Zolpidem Tartrate 10 MG 1 tab orally onc e a day (at bedtime) 01/01/2022 Active Finasteride 5 MG 1 tab(s) orally once a day; Duration: 30 day(s) Active Nebulizer - as directed Active Problems Problem Type SNOMED Code ICD Code Onset Dates Problem Status W/U Status Risk Notes Problem Pathological fracture of vertebra (433633357) Nontraumatic compression fracture of T7 vertebra, initial encounter (M48.54XA) Active confirmed Vital Signs Blood pressure systolic 142 mm Hg 07/19/19 25 Blood pressure diastolic 78 mm Hg 025 Heart Rate 106 /min 07/19/2024 Height 69 in 07/19/2024 Weight 265.4 lbs 07/19/2024 BMI 39.19 kg/m2 07/19/2024 Encounters Encounter Location Date Provider Diagnosis Barbara [address] [facility] [address] [place] [id number] 07/19/2024 Funmi Thurman Essential hypertensi on I10 ; Hyperlipidemia, unspecified hyperlipidemia type E78.5 ; COPD (chronic obstructive pulmonary disease) with acute bronchitis J44.0 ; Elevated PSA R97.20 ; Prostate cancer screening Z12.5 ; Mid back pain M54.9 and Nontraumatic compression fracture of T7 vertebra, initial encounter M48.54XA Assessments Encounter Date Diagnosis (ICD Code) Assessment Notes Treatment Notes Treatment Clinical Notes Section Notes 07/19/2024 Essential hypertension (ICD-10 - I10) 07/19/2024 Hyperlipidemia, unspecified hyperlipidemia type (ICD-10 - E78.5) 07/19/2024 COPD (chronic obstructive pulmonary disease) with acute bronchitis (ICD-10 - J44.0) 07/19/2024 Elevated PSA (ICD-10 - R97.20) 07/19/2024 Prostate cancer screening (ICD-10 - Z12.5) 07/19/2024 Mid back pain (ICD-10 - M54.9) Spoke to Dr. Katz's office staff and [facility] today. They will see patient today to evaluate for kyphoplasty 07/19/2024 Nontraumatic compression fracture of T7 vertebra, initial encounter (ICD-10 - M48.54XA) Plan Of Treatment Treatment Notes Assessment Notes Mid back pain Spoke to Dr. Katz's o [facility] staff and [facility] today. They will see patient today to evaluate for kyphoplasty Next Appt Details Follow Up: via phone to repo rt test results, 6 Months, Reason: Provider Name:Funmi Jon , 10/12/2025 01:30:00 PM, [address] [facility], [address], [place], [id number], Progress Notes * DEEJAY HarjitDOB:1955 (69 yo M)Acc No.[id number]:07/19/2024 Progress Notes Patient: Harjit WEBBER Provider: Leigha Thurman M.D. :1955 A ge:68 Y S ex:Male Date:07/19/2024 Address:[address] [place] [address] [place], [place], [id number] Subjective: * Chief Complaints: * 1 . 6 months. * HPI: C ardiology: 68 year old male presents with c/o Blood Pressure Elevated P t here for 6 mo f/u on hypertension, states he is doing well and does not have any concerns. c/o Hyperlipidemia P t is not fasting today. U pper back: c/o pain P t complains of ongoing upper back pain between shoulder blades due to fracture. Pt states is on pain medication and muscle relaxers but is not getting any relief. Pt states he has done PT and is unable to continue due to pain not improving. * ROS: D ERMATOLOGY: no R karma. n o H lucas. G ASTROENTEROLOGY: no N ausea. n o V omiting. U ROLOGY: no D ifficulty urinating. n o B lood in urine. * Medical History: C OPD dx. November 2015, Arthritis, Asthma, Allergic rhinitis, chronic low back pain, herniated disc L5, elevated PSA, s/p urology evaluation, DJD of knee, Colon polyps. * Surgical History: C olonoscopy 2022, Rt Knee Replacement 08/30/2018. * Hospitalization/Major Diagno stic Procedure: D enies Past Hospitalization. * Family History: F ather: alive. M other: alive. 1 sister(s) . 1 son(s) , 1 daughter(s) - healthy. .? * Social History: C URRENT TOBACCO USE S moking Status: Patient does NOT smoke. C affeine: yes, frequency:coffee, pop and tea. Home smoke detector use: yes. Marital Status: . Alcohol: Yes, Type: , Frequency: ,Years: , Determination:, rare. * Medications: T aking Nebulizer - Miscellaneous as directed , Taking Albuterol Sulfate HFA 108 (90 Base) MCG/ACT Aerosol Solution 2 puff(s) inhaled 4 times a day as needed , Taking Zolpidem Tartrate 10 MG Tablet 1 tab orally once a day (at bedtime) , Taking Levalbuterol HCl 1.25 MG/3ML Nebulization Solution 3 ml by nebulizer q 4 hours as needed , Taking Finasteride 5 MG Tablet 1 tab(s) orally once a day , Taking Omeprazole 20 MG Capsule Delayed Release 1 capsule 30 minutes before morning meal Orally Once a day , Taking Trelegy Ellipta 100-62.5-25 MCG/ACT Aerosol Powder Breath Activated INHALE 1 PUFF BY MOUTH ONCE DAILY FOR 30 DAYS , Taking Fluticasone Propionate 50 MCG/ACT Suspension USE 1 SPRAY(S) IN EACH NOSTRIL ONCE DAILY FOR 30 DAYS , Taking Ibuprofen 200 MG Tablet 1 tab(s) orally prn , Taking Triamterene- HCTZ 37.5-25 MG Tablet 1 tab(s) orally once a day , Taking Metaxalone 800 MG Tablet 1 tablet Orally Three times a day as needed , Taking traMADol HCl 50 MG Tablet 1 tablet as needed Orally every 6 hours , Not-Taking Livalo 2 MG Tablet 1 tablet Orally Once a day , Discontinued Cefuroxime Axetil 500 MG Tablet 1 tablet Orally every 12 hrs , Discontinued Nystatin 349398 UNIT/ML Suspension 4 ml Mouth/Throat Four times a day , Medication List reviewed and reconciled with the patient * Allergies: C restor: muscle aches - Side Effects. Objective: * Vitals: W t:265.4, Temp:97.8, BP:142/78, HR:106, O2 Sat:94% on RA, Nurse:russel, Ht: 69, BMI:39.19. * Examination: G eneral Examination: General Appearance: N AD, moves slowly due to pain. H eart: R SR. L ungs: c lear to auscultation. E xtremities: n o leg edema. ? Assessment: * Assessment: 1. E ssential hypertension - I10 (Primary) 2 . H yperlipidemia, unspecified hyperlipidemia type - E78.5 3 . C OPD (chronic obstructive pulmonary disease) with acute bronchitis - J44.0 4 . E levated PSA - R97.20 5 . P rostate cancer screening - Z12.5 6 . M id back pain - M54.9 7 . N ontraumatic compression fracture of T7 vertebra, initial encounter - M48.54XA ? Plan: * Treatment: Value Reference Range A /G Ratio 1.9 1.1-2.5 - * A lbumin 4.4 3.5-5.3 - g/dL * A lkaline Phosphatase 74 40-129 - IU/L * A LT (SGPT) 45 <5-55 - IU/L * A ST (SGOT) 99 H <5-46 - IU/L * B ilirubin, Total 1.4 H <0.2-1.2 - mg/dL * B UN 17 8-23 - mg/dL * C alcium 10.4 8.6-10.4 - mg/dL * C hloride 102 97-108 - mmol/L * C O2 25 22-32 - mmol/L * C reatinine 1.23 0.70-1.30 - mg/dL * G lucose 99 65-99 - mg/dL * P otassium 3.7 3.5-5.3 - mmol/L * S odium 140 135-145 - mmol/L * P rotein 6.7 6.0-8.3 - g/dL * e GFR by Creatinine 64 >59 - mL/min/1.73m2 * Mariel Menard 07/20/2024 12:41:41 PM >See phone encounter ?LAB: P-Microalbumin/Creatinine, Random Urine Sample (Collection Date & Time - 07/19/2024 01:45 PM)?a/c 36* Value Reference Range A lbumin/Creatinine Ratio, Urine 36 H 0-30 - ug /mg * C reatinine, Urine 98.9 - mg/dL * M icroalbumin, Urine, Random 3.6 - mg/dL * Mariel Menard 07/20/2024 12:41:41 PM >See phone encounter 2.?Hyperlipidemia, unspecified hyperlipidemia type?LAB: P-Comprehensive Metabolic Panel (CMP) (Collection Date & Time - 07/19/2024 01:45 PM)?ast 99, bili 1.4* Value Reference Range A /G Ratio 1.9 1.1-2.5 - * A lbumin 4.4 3.5-5.3 - g/dL * A lkaline Phosphatase 74 40-129 - IU/L * A LT (SGPT) 45 <5-55 - IU/L * A ST (SGOT) 99 H <5-46 - IU/L * B ilirubin, Total 1.4 H <0.2-1.2 - mg/dL * B UN 17 8-23 - mg/dL * C alcium 10.4 8.6-10.4 - mg/dL * C hloride 102 97-108 - mmol/L * C O2 25 22-32 - mmol/L * C reatinine 1.23 0.70-1.30 - mg/dL * G lucose 99 65-99 - mg/dL * P otassium 3.7 3.5-5.3 - mmol/L * S odium 140 135-145 - mmol/L * P rotein 6.7 6.0-8.3 - g/dL * e GFR by Creatinine 64 >59 - mL/min/1.73m2 * Mariel Menard Ann 07/20/2024 12:41:41 PM >See phone encounter ?LAB: P-Lipid Panel (Collection Date & Time - 07/19/2024 01:45 PM)?chol 220, col/hdl 5.5, non-hdl 180, ldl 151, ldl/hdl 3.8* Value Reference Range C holesterol / HDL Ratio 5.50 H 0.00-4.99 - Ratio * C holesterol 220 H <200 - mg/dL * H DL Cholesterol 40 >39 - mg/dL * L DL Cholesterol (Calculation) 151 H <130 - mg/d L * L DL/HDL Ratio 3.8 H <3.3 - Ratio * N on-HDL Cholesterol 180 H <130 - mg/dL * T riglycerides 144 <150 - mg/dL * Mariel Menard Ann 07/20/2024 12:41:41 PM >See phone encounter ?LAB: P-TSH reflex to FT4 (Collection Date & Time - 07/19/2024 01:45 PM)? Normal* Value Reference Range T SH reflex to FT4 1.43 0.43-5.25 - mU/L * Mariel Menard Ann 07/20/2024 12:41:41 PM >See phone encounter 3.?Elevated PSA?LAB: P-PSA Free and Total (Collection Date & Time - 07/19/2024 01:45 PM)? 8.65* Value Reference Range P SA 8.65 H <4.00 - ng/mL * P SA Free 2.23 - ng/mL * f PSA, PCT 25.78 - % * Mariel Menard Ann 07/20/2024 12:41:41 PM >See phone encounter 4.?Prostate cancer screening?LAB: P-PSA Free and Total (Collection Date & Time - 07/19/2024 01:45 PM)? 8.65* Value Reference Range P SA 8.65 H <4.00 - ng/mL * P SA Free 2.23 - ng/mL * f PSA, PCT 25.78 - % * Mariel Menard Ann 07/20/2024 12:41:41 PM >See phone encounter 5.?Mid back pain? Notes: Spoke to Dr. Katz's office staff and [facility] today. They will see patient today to evaluate for kyphoplasty?? * Procedure Codes: 9 4760 PULSE OX * Follow Up: v ia phone to report test results, 6 Months * Images: Billing Information: * Visit Code: 85122 Office Visit, Est Pt., Level 4. * Procedure Codes: 08273 PULSE OX. * Electronic signature of Jeri Thurman MD on 06/26/2025 at 10:04 AM EST Sign off status: Pending * Provider: Leigha Thurman M.D. Date: 0 07/19/2024 Generated for Oj baez/Fay/Wesleyitting on: 1 08/27/2024 10:04 AM EST History and Physical Notes * HPI (History of Present Illness) Category Sub-Category Detail Notes Category Not es Cardiology Blood Pressure Elevated Pt here for 6 mo f/u on hypertension, states he is doing well and does not have any concerns Hyperlipidemia Pt is not fasting to day Upper back pain Pt complains of ongoing upper back pain between shoulder blades due to fracture. Pt states is on pain medication and muscle relaxers but is not getting any relief. Pt states he has done PT and is unable to continue due to pain not improving Examination Category Sub-Category Detail Notes Category Not es General Examination Heart: RSR Lungs: clear to auscultatio n Extremities: no leg edema General Appearance: NAD, moves slowly du e to pain
--- OUTSIDE RECORDS SUMMARY | 2024-09-13 06:15 | XMS_ITS ---
Author Organization [facility] Address [address] [facility] [address] [place] [phone] Care Team Providers Care Press Machine Feeder Name Role Phone Funmi Thurman Primary Care Provider FUNMI THURMAN Unavailable Unavailable REASON FOR VISIT back pain Encounters Encounter Location Date Provider Diagnosis [facility] [address] [place] [phone] 09/13/2024 Funmi Thurman Plan Of Treatment Next Appt Details Provider Name:Funmi Jon ry, 10/12/2025 01:30:00 PM, [address], [place], [phone], Progress Notes * Harjit VILLALBADOB:1955 (69 yo M)Acc No.[id number]:09/13/2024 Progress Notes Patient: Harjit WEBBER Provider: Leigha Thurman M.D. :1955 A ge:68 Y S ex:Male Date:09/13/2024 Address:[address] [place] [address], [id number] Subjective: * Chief Complaints: * 1 . Back pain. * Medical History: Objective: * Vitals: Assessment: Plan: * Treatment: * Images: Billing Information: * Visit Code: * Procedure Codes: * Electronic signature of Jeri Thurman MD on 06/26/2025 at 10:04 AM EST Sign off status: Pending * Provider: Leigha Thurman M.D. Date: 0 09/13/2024 Generated for Oj baez/Fay/Wesleyitting on: 1 08/27/2024 10:04 AM EST
--- OUTSIDE RECORDS SUMMARY | 2024-11-03 09:30 | XMS_ITS ---
Author Organization [facility] Address [address] [facility] [address] [place] [phone] Care Team Providers Care Supplier Manager Name Role Phone Funmi Thurman Primary Care Provider FUNMI THURMAN Unavailable Unavailable Allergies Allergen (clinical drug ingredient) Drug/Non Drug Allergy documented on EMR Reaction Allergy Type Onset Date Status rosuvastatin Crestor muscle aches Drug Allergy A ctive Results Component Value Reference Range Notes P-Basic Metabolic Panel (BMP ) Reviewed date:11/07/2024 09:39:24 AM Interpretation:co2- 21, gluc 103, Cr 1.36, Ca 11.6, gfr 55 Performing Lab: Notes/Report: CLIA: [id number] Rodríguez Cohen MD, [employer] [address] [place] [address] , [address], [place] [address] Test performed by [facility], [facility] Sodium 143 135-145 mmol/L Potassium 3.7 3.5-5.3 mmol/L Chloride 107 97-108 mmol/L CO2 21 22-32 mmol/L Glucose 103 65-99 mg/dL BUN 18 8-23 mg/dL Creatinine 1.39 0.70-1.30 mg/dL Calcium 11.6 8.6-10.4 mg/dL eGFR by Creatinine 55 >59 mL/min/1.73m2 REASON FOR VISIT d/c f/u Medications Medication SIG (Take, Route, Frequency, Duration) Notes Start Date End Date Status Ibuprofen 200 MG 1 tab(s) orally prn Active Omeprazole 20 MG TAKE 1 CAPSULE BY [facility] IN THE MORNING 30 MINUTES BEFORE MORNING MEAL; Duration: 90 Active Livalo 2 MG 1 tablet Orally Once a day 01/26/2024 Not-Taking Albuterol Sulfate HFA 108 (90 Base) MCG/ACT 2 puff(s) inhaled 4 times a day as needed Active Zolpidem Tartrate 10 MG 1 tab orally onc e a day (at bedtime) 01/01/2022 Active Levalbuterol HCl 1.25 MG/3ML 3 ml by nebulizer q 4 hours as needed; Duration: 90 days Active Finasteride 5 MG 1 tab(s) orally once a day; Duration: 30 day(s) Active Fluticasone Propionate 50 MCG/ACT USE 1 SPRAY(S) IN EACH NOSTRIL ONCE DAILY FOR 30 DAYS; Duration: 60 Active Trelegy Ellipta 100-62.5-25 MCG/ACT 1 puff Inhalation Once a day; Duration: 30 days Active Acetaminophen 1000 MG/100ML as directed Intravenous Acti ve Methocarbamol 500 MG 1.5 tablets Orally every 4 hrs Active oxyCODONE HCl 5 MG 1 tablet as needed Orally every 6 hrs Active Nebulizer - as directed Active Problems Problem Type SNOMED Code ICD Code Onset Dates Problem Status W/U Status Risk Notes Problem Spinal cord disorder (16196735) Unspecified cord compression (G95.20) Active confirmed Problem Obese class I (959226112623 107) BMI 33.0-33.9,adult (Z68.33) Active confirmed Vital Signs Blood pressure systolic 138 mm Hg 11/04/19 25 Blood pressure diastolic 70 mm Hg 025 Heart Rate 81 /min 11/03/2024 Height 69 in 11/03/2024 Weight 229 lbs 11/03/2024 BMI 33.81 kg/m2 11/03/2024 Encounters Encounter Location Date Provider Diagnosis [facility] [address] [facility] [address] [place], [place] [address], [place] [phone] 11/03/2024 Funmi Thurman Renal insufficiency N28.9 ; Chronic obstructive pulmonary disease, unspecified COPD type J44.9 ; Compression fracture of body of thoracic vertebra S22.000A ; Thoracic spinal stenosis M48.04 ; Pure hypercholesterolemia E78.00 ; Mid back pain M54.9 ; Unspecified cord compression G95.20 and BMI 33.0-33.9,adult Z68.33 Assessments Encounter Date Diagnosis (ICD Code) Assessment Notes Treatment Notes Treatment Clinical Notes Section Notes 11/03/2024 Renal insufficiency (ICD-10 - N28.9) 11/03/2024 Chronic obstructive pulmonary disease, unspecified COPD type (ICD-10 - J44.9) 11/03/2024 Compression fracture of body of thoracic vertebra (ICD-10 - S22.000A) 11/03/2024 Thoracic spinal stenosis (ICD-10 - M48.04) Notes from surgery reviewed in office today 11/03/2024 Pure hypercholesterolemia (ICD-10 - E78.00) 11/03/2024 Mid back pain (ICD-1 0 - M54.9) 11/03/2024 Unspecified cord compression (ICD-10 - G95.20) 11/03/2024 BMI 33.0-33.9,adult (ICD-10 - Z68.33) 11/03/2024 Other Discharge summary with available lab/diagnostic imaging results obtained and reviewed. Discharge medication list reconciled. Appropriate counseling provided. Moderate Complexity Plan Of Treatment Medication Medication Name Sig Start Date Stop Date Notes Trelegy Ellipta 100-62.5-25 MCG/ACT 1 puff Inhalation Once a day; Duration: 30 days Treatment Notes Assessment Notes Thoracic spinal stenosis Notes from s urgery reviewed in office today Other Discharge summary wi available lab/diagnostic imaging results obtained and reviewed. Discharge medication list reconciled. Appropriate counseling provided. Moderate Complexity Next Appt Details Follow Up: 4 Weeks, Reason: Provider Name:Funmi Jon , 10/12/2025 01:30:00 PM, [address] [facility] [address] [facility], [address], [place], [place], [phone], Progress Notes * Harjit VILLALBADOB:1955 (69 yo M)Acc No.[id number]:11/03/2024 Patient: Ashli ORTEGA Harjit Provider: Leigha Thurman M.D. :1955 A ge:69 Y S ex:Male Date:11/03/2024 Address:[address] [place] [address], [place], [place] Subjective: * Chief Complaints: * 1 . [facility] d/c f/u. * HPI: H PI: Patient is here today for a Transition of Care Visit. Discharge from the following Facility: following multiple back surgeries , Discharge date: 10/28/2024 ,Date of phone contact following discharge: 10/30/2024. Pt sts they did discontinue h is BP medication and sts he needs refills on his Trelegy. * ROS: D ERMATOLOGY: no R karma. n o H lucas. G ASTROENTEROLOGY: no N ausea. n o V omiting. U ROLOGY: no D ifficulty urinating. n o B lood in urine. * Medical History: C OPD dx. November 2015, Arthritis, Asthma, Allergic rhinitis, chronic low back pain, herniated disc L5, elevated PSA, s/p urology evaluation, DJD of knee, Colon polyps, Thoracic Compression fracture - T7. * Surgical History: C olonoscopy 2022, Rt Knee Replacement 08/30/2018, Kyphoplasty - T7 , Thoracic fusion - multiple levels at . * Hospitalization/Major Diagno stic Procedure: D enies [...] , Determination:, rare. * Medications: T aking Acetaminophen 1000 MG/100ML Solution as directed Intravenous , Taking Methocarbamol 500 MG Tablet 1.5 tablets Orally every 4 hrs , Taking oxyCODONE HCl 5 MG Tablet 1 tablet as needed Orally every 6 hrs , Taking Nebulizer - Miscellaneous as directed , Taking [...] tab(s) orally once a day , Taking Fluticasone Propionate 50 MCG/ACT Suspension USE 1 SPRAY(S) IN EACH NOSTRIL ONCE DAILY FOR 30 DAYS , Taking Ibuprofen 200 MG Tablet 1 tab(s) orally prn , Taking Omeprazole 20 MG Capsule Delayed Release TAKE 1 CAPSULE BY MOUTH IN THE MORNING 30 MINUTES BEFORE MORNING MEAL , Taking Trelegy Ellipta 100-62.5-25 MCG/ACT Aerosol Powder Breath Activated INHALE 1 PUFF BY MOUTH ONCE DAILY FOR 30 DAYS , Not-Taking Livalo 2 MG Tablet 1 tablet Orally Once a day , Discontinued Triamterene-HCTZ 37.5-25 MG Tablet 1 tab(s) Orally Once a day , Discontinued Metaxalone 800 MG Tablet 1 tablet Orally Three times a day as needed , Discontinued traMADol HCl 50 MG Tablet 1 tablet as needed Orally every 6 hours , Medication List reviewed and reconciled with the patient * Allergies: C restor: muscle aches - Side Effects. Objective: * Vitals: W t: 229, Temp: 97.9, BP: 138/70, HR: 81, Nurse: [facility], Ht: 69, BMI:33.81. * Examination: G eneral Examination: General Appearance: N AD, using a walker to assist with ambulation. H eart: R SR. L ungs: c lear to auscultation. Assessment: * Assessment: 1. R enal insufficiency - N28.9 (Primary) 2 . C hronic obstructive pulmonary disease, unspecified COPD type - J44.9 3 . C ompression fracture of body of thoracic vertebra - S22.000A 4 . T horacic spinal stenosis - M48.04 5. P ure hypercholesterolemia - E78.00 6 . M id back pain - M54.9 ? 7 . U nspecified cord compression - G95.20 8 . B ND 33.0-33.9,adult - Z68.33 Plan: * Treatment: Value Reference Range B UN 18 8-23 - mg/dL * C alcium 11.6 H 8.6-10.4 - mg/dL * C hloride 107 97-108 - mmol/L * C O2 21 L 22-32 - mmol/L * C reatinine 1.39 H 0.70-1.30 - mg/dL * G lucose 103 H 65-99 - mg/dL * P otassium 3.7 3.5-5.3 - mmol/L * S odium 143 135-145 - mmol/L * e GFR by Creatinine 55 L >59 - mL/min/1.73m2 * Blanche Otrega 11/07/2024 09:3 9:17 AM > See phone encounter 2.?Chronic obstructive pulmonary disease, unspecified COPD type? Refill Trelegy Ellipta Aerosol Powder Breath Activated, 100-62.5-25 MCG/ACT, 1 puff, Inhalation, Once a day, 30 days, 30, Refills 5.??3.?Thoracic spinal stenosis? Notes: Notes from surgery reviewed in office today??4.?Others? Notes: Discharge summary with available lab/diagnostic imaging results obtained and reviewed. Discharge medication list reconciled. Appropriate counseling provided. Moderate Complexity?? * Procedure Codes: G 2211 Complex e/[place], [address] TRANS CARE MGMT 14 DAY DISCH, 1111F DSCHR MED/CURENT MED MERGE, 3075F SYST BP GE 130 - 139MM HG, 3078F DIAST BP < 80 MM HG * Follow Up: 4 Weeks * Images: Billing Information: * Visit Code: 82854 Office Visit, Est Pt., Level 4. * Procedure Codes: G2211 Complex e/[place]. [address] TRANS CARE MGMT 14 DAY DISCH. 1111F DSCHR MED/CURENT MED MERGE. 3075F SYST BP GE 130 - 139MM HG. 3078F DIAST BP < 80 MM HG. * Electronic signature of Jeri Thurman MD on 06/26/2025 at 10:03 AM EST Sign off status: Pending * Provider: Leigha Thurman M.D. Date: 0 11/03/2024 Generated for Oj baez/Fay/eTransmitting on: 1 08/27/2024 10:03 AM EST History and Physical Notes * HPI (History of Present Illness) Category Sub-Category Detail Notes Category Not es HPI [facility] Discharge from the following Facility: following multiple back surgeries ,Discharge date: 10/28/2024 ,Date of phone contact following discharge: 10/30/2024. Pt sts they did discontinue his BP medication and sts he needs refills on his Trelegy Examination Category Sub-Category Detail Notes Category Not es General Examination Heart: RSR Lungs: clear to auscultatio n General Appearance: NAD, using a walker to assist with ambulation
--- OUTSIDE RECORDS SUMMARY | 2024-12-01 09:45 | XMS_ITS ---
Author Organization [facility] Address [address] [facility] [address] [facility] [address] [place] [phone] Care Team Providers Care Service Delivery Management Consultant Name Role Phone Funmi Thurman Primary Care Provider FUNMI THURMAN Unavailable Unavailable Allergies Allergen (clinical drug ingredient) Drug/Non Drug Allergy documented on EMR Reaction Allergy Type Onset Date Status rosuvastatin Crestor muscle aches Drug Allergy A ctive REASON FOR VISIT 4 weeks Encounters Encounter Location Date Provider Diagnosis [facility] [address] [facility] [address] [facility] [address] [place] [phone] 12/01/2024 Funmi Thurman Plan Of Treatment Next Appt Details Provider Name:Funmi Jon ry, 10/12/2025 01:30:00 PM, [address] [facility] [address] [facility], [address], [place], [phone], Progress Notes * DEEJAYHarjit HAMMONDDOB:1955 (69 yo M)Acc No.[id number]:12/01/2024 Patient: Harjit WEBBER Provider: Leigha Thurman M.D. :1955 A ge:69 Y S ex:Male Date:12/01/2024 Address:[address] [place] [address], [place] Subjective: * Chief Complaints: * 1 . 4 weeks. * HPI: H PI: 69 year old male presents with c/o Patient is here today for?Pt is here today for a 4 week f/u. * ROS: D ERMATOLOGY: no R karma. [...] fusion - multiple levels at . * Family History: F ather: alive. M other: alive. 1 sister(s) . 1 son(s) , 1 daughter(s) - healthy. .? * Social History: C URRENT TOBACCO USE S moking Status: Patient does NOT smoke. C affeine: yes, frequency:coffee, pop and tea. Home smoke detector use: yes. Marital Status: . Alcohol: Yes, Type: , Frequency: ,Years: , Determination:, rare. * Allergies: C restor: muscle aches - Side Effects. Objective: * Vitals: Assessment: Plan: * Treatment: * Images: Billing Information: * Visit Code: * Procedure Codes: * Electronic signature of Jeri Thurman MD on 06/26/2025 at 10:03 AM EST Sign off status: Pending * Provider: Leigha Thurman M.D. Date: 0 12/01/2024 Generated for Oj baez/Fay/Wesleyitting on: 08/27/2024 10:03 AM EST History and Physical Notes * HPI (History of Present Illness) Category Sub-Category Detail Notes Category Not es HPI Patient is here today for Pt is here toda y for a 4 week f/u
--- OUTSIDE RECORDS SUMMARY | 2024-12-12 05:45 | XMS_ITS ---
Author Organization [facility] Address [address] [place] [phone] Care Team Providers Care Account Advisor Name Role Phone Funim Thurman Primary Care Provider FUNMI THURMAN Unavailable Unavailable Allergies Allergen (clinical drug ingredient) Drug/Non Drug Allergy documented on EMR Reaction Allergy Type Onset Date Status rosuvastatin Crestor muscle aches Drug Allergy A ctive REASON FOR VISIT lower back Medications Medication SIG (Take, Route, Frequency, Duration) Notes Start Date End Date Status Finasteride 5 MG 1 tab(s) orally once a day; Duration: 30 day(s) Active Zolpidem Tartrate 10 MG 1 tab orally onc e a day (at bedtime) 01/01/2022 Active Levalbuterol HCl 1.25 MG/3ML 3 ml by nebulizer q 4 hours as needed; Duration: 90 days Active Albuterol Sulfate HFA 108 (90 Base) MCG/ACT 2 puff(s) inhaled 4 times a day as needed Active Fluticasone Propionate 50 MCG/ACT USE 1 SPRAY(S) IN EACH NOSTRIL ONCE DAILY FOR 30 DAYS; Duration: 60 Active Nebulizer - as directed Active Acetaminophen 1000 MG/100ML as directed Intravenous Active traMADol HCl 50 MG 1 tablet as needed O rally every 6 hours 12/08/2024 Active Methocarbamol 500 MG 1 tablets Orally ev jana 6 hrs as needed Active Omeprazole 20 MG TAKE 1 CAPSULE BY [facility] IN THE MORNING 30 MINUTES BEFORE MORNING MEAL; Duration: 90 Active Trelegy Ellipta 100-62.5-25 MCG/ACT 1 puff Inhalation Once a day; Duration: 30 days Active Ibuprofen 200 MG 1 tab(s) orally prn Active Problems Problem Type SNOMED Code ICD Code Onset Dates Problem Status W/U Status Risk Notes Problem Leukocytosis (234144705) Leukocytosis, unspecified type (D72.829) Active confirmed Problem Multiple myeloma (803654498) Multiple myeloma not having achieved remission (C90.00) Active confirmed Vital Signs Blood pressure systolic 140 mm Hg 12/13/19 25 Blood pressure diastolic 82 mm Hg 025 Heart Rate 101 /min 12/12/2024 Height 69 in 12/12/2024 Weight 240 lbs 12/12/2024 BMI 35.44 kg/m2 12/12/2024 Encounters Encounter Location Date Provider Diagnosis [facility] [address] [place] [phone] 12/12/2024 [place] Low back pain, unspecified M54.50 ; Leukocytosis, unspecified type D72.829 and Multiple myeloma not having achieved remission C90.00 Assessments Encounter Date Diagnosis (ICD Code) Assessment Notes Treatment Notes Treatment Clinical Notes Section Notes 12/12/2024 Low back pain, unspecified (ICD-10 - M54.50) Patient is going to follow up with for all of his pain management 12/12/2024 Leukocytosis, unspecified type (ICD-10 - D72.829) Results of recent bone marrow biopsy at and Heme/Onc note obtained and reviewed. Spoke to Dr. Gibbons at [facility] Oncology today. Patient does indeed have multiple myeloma 12/12/2024 Multiple myeloma not having achieved remission (ICD-10 - C90.00) 12/12/2024 Other Need requests about ECHO request from Plan Of Treatment Treatment Notes Assessment Notes Low back pain, unspecified Patient is go ing to follow up with for all of his pain management Leukocytosis, unspecified type Results o f recent bone marrow biopsy at and Heme/Onc note obtained and reviewed. Spoke to Dr. Gibbons at [facility] Oncology today. Patient does indeed have multiple myeloma Other Need requests about ECHO request from Next Appt Details Follow Up: via phone to repo rt progress, Reason: Provider Name:Funmi chavira, 10/12/2025 01:30:00 PM, [address], [address], [place], [phone], Progress Notes * Harjit VILLALBADOB:1955 (69 yo M)Acc No.[id number]:12/12/2024 Progress Notes Patient: Harjit WEBBER Provider: Leigha Thurman M.D. :1955 A ge:69 Y S ex:Male Date:12/12/2024 Address:[address] [place] [address], [id number] Subjective: * Chief Complaints: * 1 . Lower back. * HPI: L ower back: 69 year old male presents with c/o Low Back Pain P t complains of lower back pain. Pt states pain is almost unbearable and he is unable to drive becuase of it. Pt requesting referral to PT. H PI: c/o Patient is here today for P t states he was advised to have a cardiac echo. Pt is currently being treated at for cancer (multiple myeloma) and is not sure why echo was recommended. * ROS: C ONSTITUTIONAL: Positive for p atient states he needs to have an echocardiogram today. D ERMATOLOGY: no R karma. n o [...] , Thoracic fusion - multiple levels at 2024. * Hospitalization/Major Diagno stic Procedure: D enies [...] MG/100ML Solution as directed Intravenous , Taking Nebulizer - Miscellaneous as directed [...] Ellipta 100-62.5-25 MCG/ACT Aerosol Powder Breath Activated 1 puff Inhalation Once a day , Taking Methocarbamol 500 MG Tablet 1 tablets Orally every 6 hrs as needed , Taking traMADol HCl 50 MG Tablet 1 tablet as needed Orally every 6 hours , Discontinued oxyCODONE HCl 5 MG Tablet 1 tablet as needed Orally every 6 hrs , Discontinued Livalo 2 MG Tablet 1 tablet Orally Once a day , Medication List reviewed and reconciled with the patient * Allergies: C restor: muscle aches - Side Effects. Objective: * Vitals: W t: 240, Temp: 97.9, BP: 140/82, HR: 101, Nurse: russel, Ht: 69, BMI:35.44. * Examination: G eneral Examination: General Appearance: N AD, using a walker to assist with ambulation. Assessment: * Assessment: 1. L ow back pain, unspecified - M54.50 (Primary) 2 . L eukocytosis, unspecified type - D72.829 3 . M ultiple myeloma not having achieved remission - C90.00 Plan: * Treatment: 2. L eukocytosis, unspecified type Notes: Results of recent bone marrow biopsy at and Heme/Onc note obtained and reviewed. Spoke to Dr. Gibbons at [facility] Oncology today. Patient does indeed have multiple myeloma 3. O thers Notes: Need requests about ECHO request from * Procedure Codes: G 2211 Complex e/m visit add on, 1036F TOBACCO NON-USER * Follow Up: v ia phone to report progress * Images: Billing Information: * Visit Code: 12789 Office Visit, Est Pt., Level 4. * Procedure Codes: G2211 Complex e/m visit add on. 1036F TOBACCO NON-USER. * Electronic signature of Jeri Thurman MD on 06/26/2025 at 10:04 AM EST Sign off status: Pending * Provider: Leigha Thurman M.D. Date: 0 12/12/2024 Generated for Oj baez/Fay/Anjanaransmitting on: 1 08/27/2024 10:04 AM EST History and Physical Notes * HPI (History of Present Illness) Category Sub-Category Detail Notes Category Not es Lower back Low Back Pain Pt complains of lower back pain. Pt states pain is almost unbearable and he is unable to drive becuase of it. Pt requesting referral to PT HPI Patient is here today for Pt sta mary kate he was advised to have a cardiac echo. Pt is currently being treated at for cancer (multiple myeloma) and is not sure why echo was recommended Examination Category Sub-Category Detail Notes Category Not es General Examination General Appearance: NAD, usi ng a walker to assist with ambulation
--- OUTSIDE RECORDS SUMMARY | 2025-02-19 08:45 | XMS_ITS ---
Author Organization [facility] Address [address] [facility] [address] [facility] [address] [place] [phone] Care Team Providers Care Wire Roller Name Role Phone Funmi Thurman Primary Care Provider FUNMI THURMAN Unavailable Unavailable Allergies Allergen (clinical drug ingredient) Drug/Non Drug Allergy documented on EMR Reaction Allergy Type Onset Date Status rosuvastatin Crestor muscle aches Drug Allergy A ctive REASON FOR VISIT swelling in foot check B/P Medications Medication SIG (Take, Route, Frequency, Duration) Notes Start Date End Date Status Methocarbamol 500 MG 1 tablets Orally ev jana 6 hrs as needed Active traMADol HCl 50 MG 1 tablet as needed Orally every 6 hours 12/08/2024 Active Levalbuterol HCl 1.25 MG/3ML 3 ml by neb ulizer q 4 hours as needed; Duration: 90 days Active Trelegy Ellipta 100-62.5-25 MCG/ACT 1 puff Inhalation Once a day; Duration: 30 days Active Nebulizer - as directed Active Albuterol Sulfate HFA 108 (90 Base) MCG/ACT 2 puff(s) inhaled 4 times a day as needed Active Irbesartan-hydroCHLOROthiazi de 150-12.5 MG 1 tablet Orally Once a day; Duration: 30 days 02/19/2025 Active Vital Signs Blood pressure systolic 160 mm Hg 02/20/20 25 Blood pressure diastolic 82 mm Hg 025 Heart Rate 96 /min 02/19/2025 Height 69 in 02/19/2025 Weight 235.4 lbs 02/19/2025 BMI 34.76 kg/m2 02/19/2025 Encounters Encounter Location Date Provider Diagnosis [facility] [address] [facility] [address] [place] [phone] 02/19/2025 [place] Essential hypertensi on I10 Assessments Encounter Date Diagnosis (ICD Code) Assessment Notes Treatment Notes Treatment Clinical Notes Section Notes 02/19/2025 Essential hypertension (ICD-10 - I10) Plan Of Treatment Medication Medication Name Sig Start Date Stop Date Notes Irbesartan-hydroCHLOROthiazi de 150-12.5 MG 1 tablet Orally Once a day; Duration: 30 days 02/19/2025 Next Appt Details Follow Up: 3 Weeks, Reason: Provider Name:Funmi Jon ry, 10/12/2025 01:30:00 PM, [address] [facility] [address] [facility], [address], [place], [phone], Progress Notes * DEEJAY HarjitDOB:1955 (69 yo M)Acc No.[id number]:02/19/2025 Progress Notes Patient: Harjit WEBBER Provider: Leigha Thurman M.D. :1955 A ge:69 Y S ex:Male Date:02/19/2025 Address:[address] [place] [address], [id number] Subjective: * Chief Complaints: * 1 . swelling in foot check B/P. * HPI: C ardiology: 69 year old male presents with c/o Leg Edema P t complains of swelling in both feet for about 2 weeks. Pt was taken off Triamterene-HCTZ in July and pt states his bp is becoming elevated again and swelling has started. * ROS: D ERMATOLOGY: no R karma. [...] times a day as needed , Taking Levalbuterol HCl 1.25 MG/3ML Nebulization Solution 3 ml by nebulizer q 4 hours as needed , Taking Methocarbamol 500 MG Tablet 1 tablets Orally every 6 hrs as needed , Taking traMADol HCl 50 MG Tablet 1 tablet as needed Orally every 6 hours , Taking Trelegy Ellipta 100-62.5-25 MCG/ACT Aerosol Powder Breath Activated 1 puff Inhalation Once a day , Discontinued Acetaminophen 1000 MG/100ML Solution as directed Intravenous , Discontinued Zolpidem Tartrate 10 MG Tablet 1 tab orally once a day (at bedtime) , Discontinued Ibuprofen 200 MG Tablet 1 tab(s) orally prn , Discontinued Finasteride 5 MG Tablet 1 tab(s) orally once a day , Discontinued Fluticasone Propionate 50 MCG/ACT Suspension USE 1 SPRAY(S) IN EACH NOSTRIL ONCE DAILY FOR 30 DAYS , Discontinued Omeprazole 20 MG Capsule Delayed Release TAKE 1 CAPSULE BY MOUTH IN THE MORNING 30 MINUTES BEFORE MORNING MEAL , Medication List reviewed and reconciled with the patient * Allergies: C restor: muscle aches - Side Effects. Objective: * Vitals: W t: 235.4, Temp: 97.7, BP: 160/82, HR: 96, Nurse: russel, Ht: 69, BMI:34.76. * Examination: G eneral Examination: General Appearance: N AD, using a walker to assist with ambulation. H eart: R SR. L ungs: c lear to auscultation. E xtremities: b ilateral trace pitting leg edema. Assessment: * Assessment: 1. E ssential hypertension - I10 (Primary) Plan: * Treatment: * Procedure Codes: G 2211 Complex e/m visit add on, 1036F TOBACCO NON-USER, G8950 PREHTN/HTN BP DOC INDCD F/U DOC, G8753 MOST RECENT SYSTOLIC BP >= 140MM HG, G8754 MOST RECENT DIASTOLIC BP < 90MM HG * Follow Up: 3 Weeks * Images: Billing Information: * Visit Code: 02569 Office Visit, Est Pt., Level 3. * Procedure Codes: G2211 Complex e/m visit add on. 1036F TOBACCO NON-USER. G8950 PREHTN/HTN BP DOC INDCD F/U DOC. G8753 MOST RECENT SYSTOLIC BP >= 140MM HG. G8754 MOST RECENT DIASTOLIC BP < 90MM HG. * Electronic signature of Jeri Thurman MD on 06/26/2025 at 10:07 AM EST Sign off status: Pending * Provider: Leigha Thurman M.D. Date: 0 02/19/2025 Generated for Oj baez/Fay/Osmansmitting on: 1 08/27/2024 10:07 AM EST History and Physical Notes * HPI (History of Present Illness) Category Sub-Category Detail Notes Category Not es Cardiology Leg Edema Pt complains of swelling in both feet for about 2 weeks. Pt was taken off Triamterene-HCTZ in July and pt states his bp is becoming elevated again and swelling has started Examination Category Sub-Category Detail Notes Category Not es General Examination Heart: RSR Lungs: clear to auscultatio n Extremities: bilateral trace itz ing leg edema General Appearance: NAD, using a walker to assist with ambulation
--- OUTSIDE RECORDS SUMMARY | 2025-03-14 08:30 | XMS_ITS ---
Author Organization [facility] Address [address] [place] [id number] Care Team Providers Care Floorworker Name Role Phone Funmi Thurman Primary Care Provider [phone] FUNMI THURMAN Unavailable Unavailable Allergies Allergen (clinical drug ingredient) Drug/Non Drug Allergy documented on EMR Reaction Allergy Type Onset Date Status rosuvastatin Crestor muscle aches Drug Allergy A ctive Results Component Value Reference Range Notes P-Basic Metabolic Panel (BMP ) Reviewed date:03/16/2025 01:58:09 PM Interpretation:Normal Performing Lab: Notes/Report: Test performed by [facility] [address] [place] [address] , [address], [place] [address] Rodríguez Cohen MD, Assistant Guest Services Manager CLIA: [id number] Sodium 139 135-145 mmol/L Potassium 3.9 3.5-5.3 mmol/L Chloride 102 97-108 mmol/L CO2 24 20-32 mmol/L Glucose 94 65-99 mg/dL BUN 12 8-23 mg/dL Creatinine 0.93 0.70-1.30 mg/dL Calcium 9.8 8.6-10.4 mg/dL eGFR by Creatinine 89 >59 mL/min/1.73m2 REASON FOR VISIT 3 week f/u Medications Medication SIG (Take, Route, Frequency, Duration) Notes Start Date End Date Status traMADol HCl 50 MG 1 tablet as needed Orally every 6 hours 12/08/2024 Active Trelegy Ellipta 100-62.5-25 MCG/ACT 1 puff Inhalation Once a day; Duration: 30 days Active Methocarbamol 500 MG 1 tablets Orally ev jana 6 hrs as needed Active Levalbuterol HCl 1.25 MG/3ML 3 ml by neb ulizer q 4 hours as needed; Duration: 90 days Active Albuterol Sulfate HFA 108 (90 Base) MCG/ACT 2 puff(s) inhaled 4 times a day as needed Active Irbesartan-hydroCHLOROthiazi de 150-12.5 MG 1 tablet Orally Once a day; Duration: 90 days 02/19/2025 Active Nebulizer - as directed Active Vital Signs Blood pressure systolic 148 mm Hg 03/14/20 25 Blood pressure diastolic 74 mm Hg 025 Heart Rate 106 /min 03/14/2025 Height 69 in 03/14/2025 Weight 238.6 lbs 03/14/2025 BMI 35.23 kg/m2 03/14/2025 Encounters Encounter Location Date Provider Diagnosis [facility] [address] [place] [address] [address] [place], [place] [id number] 03/14/2025 Funmi Thurman Essential hypertensi on I10 Assessments Encounter Date Diagnosis (ICD Code) Assessment Notes Treatment Notes Treatment Clinical Notes Section Notes 03/14/2025 Essential hypertension (ICD-10 - I10) Plan Of Treatment Medication Medication Name Sig Start Date Stop Date Notes Irbesartan-hydroCHLOROthiazi de 150-12.5 MG 1 tablet Orally Once a day; Duration: 90 days 02/19/2025 Next Appt Details Follow Up: 3 Months, Reason: Provider Name:Funmi Jon , 10/12/2025 01:30:00 PM, [address] [facility] [address] [facility], [address], [place], [place], [id number], Progress Notes * Harjit VILLALBADOB:1955 (69 yo M)Acc No.[id number]:03/14/2025 Patient: Harjit WEBBER Provider: Leigha Thurman M.D. :1955 A ge:69 Y S ex:Male Date:03/14/2025 Address:[address] [place] [address], [id number] Subjective: * Chief Complaints: * 1 . 3 week f/u. * HPI: C ardiology: 69 year old male presents with c/o Leg Edema P t is here for 3 week follow up on leg edema, pt started on Irbesartan-HCTZ 150mg-12.5mg on 02/19/2025. Pt states he does not feel like he should be taking BP and fluid pill on the week he takes chemo pill due to stomach swelling. Pt feels like this is to much on his body at one time. * ROS: D ERMATOLOGY: no R karma. n o H lucas. G ASTROENTEROLOGY: no N ausea. n o V omiting. n o D iarrhea.? U ROLOGY: no D ifficulty urinating. n [...] .? * Social History: C URRENT TOBACCO USE: No S moking Status: Patient does NOT smoke. [...] puff Inhalation Once a day , Taking Irbesartan-hydroCHLOROthiazide 150-12.5 MG Tablet 1 tablet Orally Once a day , Medication List reviewed and reconciled with the patient * Allergies: C restor: muscle aches - Side Effects. Objective: * Vitals: W t: 238.6, Temp: 97.9, BP: 148/74, HR: 106, Nurse: SF, Ht: 69, BMI:35.23. * Examination: G eneral Examination: General Appearance: N AD, using a cane to assist with ambulation. H eart: R SR. L ungs: c lear to auscultation. E xtremities: b ilateral trace pitting leg edema. Assessment: * Assessment: 1. E ssential hypertension - I10 (Primary) Plan: * Treatment: Value Reference Range B UN 12 8-23 - mg/dL * C alcium 9.8 8.6-10.4 - mg/dL * C hloride 102 97-108 - mmol/L * C O2 24 20-32 - mmol/L * C reatinine 0.93 0.70-1.30 - mg/dL * G lucose 94 65-99 - mg/dL * P otassium 3.9 3.5-5.3 - mmol/L * S odium 139 135-145 - mmol/L * e GFR by Creatinine 89 >59 - mL/min/1.73m2 * Gabrielle Armijo 03/16/2025 01:58:0 1 PM EDT > Pt notified * Procedure Codes: G 2211 Complex e/m visit add on, 1036F TOBACCO NON-USER, G8950 PREHTN/HTN BP DOC INDCD F/U DOC, G8753 MOST RECENT SYSTOLIC BP >= 140MM HG, G8754 MOST RECENT DIASTOLIC BP < 90MM HG * Follow Up: 3 Months * Images: Billing Information: * Visit Code: 47129 Office Visit, Est Pt., Level 3. * Procedure Codes: G2211 Complex e/m visit add on. 1036F TOBACCO NON-USER. G8950 PREHTN/HTN BP DOC INDCD F/U DOC. G8753 MOST RECENT SYSTOLIC BP >= 140MM HG. G8754 MOST RECENT DIASTOLIC BP < 90MM HG. * Electronic signature of Jeri Thurman MD on 06/26/2025 at 10:06 AM EST Sign off status: Pending * Provider: Leigha Thurman M.D. Date: 0 03/14/2025 Generated for Oj baez/Fay/Donis on: 1 08/27/2024 10:06 AM EST History and Physical Notes * HPI (History of Present Illness) Category Sub-Category Detail Notes Category Not es Cardiology Leg Edema Pt is here for 3 week follow up on leg edema, pt started on Irbesartan-HCTZ 150mg-12.5mg on 02/19/2025. Pt states he does not feel like he should be taking BP and fluid pill on the week he takes chemo pill due to stomach swelling. Pt feels like this is to much on his body at one time Examination Category Sub-Category Detail Notes Category Not es General Examination Heart: RSR Lungs: clear to auscultatio n Extremities: bilateral trace itz ing leg edema General Appearance: NAD, using a cane to assist with ambulation
--- OUTSIDE RECORDS SUMMARY | 2025-05-28 13:00 | XMS_ITS | Encounter Summary ---
Author Organization [facility] Address [address] [place] [address] Care Team Providers Care 7Th Grade Teacher Name Role Phone Parrish Thurman MD Primary Care Provider + [phone] Reason for Visit * Reason Comments Follow-up Follow-up Encounter Details Date Type Department Care Team ([facility] Contact Info) Description 05/28/2025 1:00 PM EST Office Visit Medical Office Building Surgery Spine & Joint [address], [address] [place] [address] Afshan Bryan MD [address] [place] [address] S/P spinal fusion (Primary Dx); Chronic midline thoracic back pain Social History Tobacco Use Types Packs/Day Years [...] 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 file Not on file Not on file documented as of this encounter Last Filed Vital Signs Vital Sign Reading Time Taken Comments Blood Pressure 160/89 05/28/2025 12:58 PM EST Pulse 87 05/28/2025 12:58 PM EST Temperature - - Respiratory Rate - - Oxygen Saturation 97% 05/28/2025 12:58 PM EST Inhaled Oxygen Concentration - - Weight 114 kg (251 lb 8.7 oz) 05/28/2025 12:58 P M EST Height 172.7 cm (5' 8 ) 05/28/2025 12:58 PM EST Body Mass Index 38.25 05/28/2025 12:58 PM EST documented in this encounter Miscellaneous Notes * Progress Notes - Heladio Christopher PA - 05/28/2025 1:00 PM EST Images from the original note were not included. Orthopaedic Spine Post Operative Clinic Note Date of Surgery: 10/25/2024 Surgical Procedure: Revision of T5-9 PSIF w/ extension to T11; removal b/l T9 pedicle screws; cement augmentation of T10 and T11 pedicle screws Surgeon: Rajiv Garcias MD --> care continued with Dr. Bryan Subjective: History of Present Illness: Harjit Brown is a 69 y.o. male who presents to Spine Surgery Clinic today now 7 months out from above surgery for revision surgery with the extension down to T11 . Patient returns doing okay today. He does make slow and steady improvements but does still continuing to have 3-4/10 pain. He ambulates with a cane . Overall he states that he feels fairly steady in his legs. He has resumed PT and notes some improvement in strength. He has pain affecting bilateral periscapular region and RLE pain intermittently. He will sometimes go several days without symptoms. 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 Tobacco Use Smoking status: Former Passive exposure: Past Smokeless tobacco: Current Types: Chew Tobacco comments: Quit smoking ; 15 pkyrs Vaping Use Vaping status: Never Used Substance and Sexual Activity Alcohol use: Never Comment: Quit 07/2024; 40+ years ago history of daily use Drug use: Not Currently Comment: cbd gummies Sexual activity: Defer Past Medical History[1] Surgical History[2] Medications Ordered Prior to Encounter[3] Allergies: Pollen extract Review of Systems: CONSTITUTIONAL: denies fevers, chills HEENT: denies swallowing difficulties, sore throat CARDIOVASCULAR: denies chest pain, palpitations, syncope RESPIRATORY: denies shortness of breath, cough, wheezing GI: denies change in bowel habits, nausea, vomiting : denies change in bladder function, frequency, dysuria SKIN: denies rash, skin changes PSYCH: denies uncontrolled anxiety or depression Objective: Vitals: 05/28/25 1258 BP: (!) 160/89 Pulse: 87 SpO2: 97% Weight: 114 kg (251 lb 8.7 oz) Height: 1.727 m (5' 8 ) Body mass index is 38.25 kg/m??. General Physical Exam Constitutional Oriented to person, place, and time. Appears well-developed and well-nourished. Head Normocephalic and atraumatic. Eyes Pupils are equal, round, and reactive to light. Neck Neck supple Cardiovascular Minimal to no peripheral edema, intact distal pulses Pulmonary/Chest Effort normal, no shortness of breath noted Neurological Alert and oriented to person, place, and time Skin Skin is warm and dry Psychiatric Normal mood and affect, behavior and judgment INCISION: Surgical incision is well healed. There is no erythema, induration, tenderness, drainage or any other signs of infection. Motor Strength Right Left L2: Hip flexion (Iliopsoas) 5/5 5/5 L3: Knee extension (Quad) 5/5 5/5 L4: Ankle DF (TA) 5/5 5/5 L5: Great Toe DF (EHL) 5/5 5/5 S1: Ankle Pf, Foot Eversion (Peroneal longus/brevis) 5/5 5/5 Sensation Right Left L2: Proximal anterior thigh Normal Normal L3: Mid anterior thigh Normal Normal L4: Medial leg/foot, great toe (Saphenous n.) Normal Normal L5: Dorsum of mid foot Normal Normal S1: Lateral leg/foot, little toe, Back of leg (Sural n.) Normal Normal Reflexes Right Left L4: Patellar 2/4 2/4 S1: Achilles 2/4 2/4 IMAGING: Radiographs of the thoracic spine were obtained upon arrival today and independently reviewed and demonstrate that the hardware is grossly unchanged from last imaging, which demonstrates collapse of T11. There does not appear to be interval progression or collapse of the this level. Assessment and Plan: Harjit Brown is a 69 y.o. male who is approximately 7 months out from surgery, we reviewed his imaging that demonstrates unchanged alignment. He does seem to be making slow and steady improvements but still has a ways to go. Recommend he continue PT exercises. No recommended changes in medication today. He will continue with his medical management and bone treatment. FU 6 months with repeat scoliosis XR. Heladio Christopher PA-C [1] Past Medical History: Diagnosis Date Chronic obstructive pulmonary disease with acute lower respiratory infection 01/25/2025 COPD (chronic obstructive pulmonary disease) Exercise tolerance finding 2 flights without soa GERD (gastroesophageal reflux disease) Hypertension Joint pain Monoclonal gammopathy IgG [place] Multiple myeloma 10/27/2024 [place] Light [employer] restricted Sleep apnea inconsistent diagnosis [2] Past Surgical History: Procedure Laterality Date BACK SURGERY 09/14/2024 T5-T9 posterior spinal instrumentation and arthrodesis; T7 laminectomy BACK SURGERY 10/25/2024 Revision T5-T9 posterior spinal instrumentation arthrodesis with extension to T11 COLONOSCOPY 2022 THORACIC DISC SURGERY 05/2024 Kyphoplasty TOTAL KNEE ARTHROPLASTY Right 2019 [3] Current Outpatient Medications on File Prior to Visit Medication Sig Dispense Refill acetaminophen (Tylenol) 500 MG tablet Take 2 tablets by mouth every 6 hours as needed for pain. 100tablet 0 acyclovir (Zovirax) 400 MG tablet Take 2 tablets by mouth 2 times a day. 120 tablet 3 Calcium Carbonate-Vitamin D (calcium-vitamin D) 500-200 MG-UNIT tablet Take 1 tablet by mouth daily. 30 tablet 11 Flmjmkmecci-Vhjnmxpnn-Xocsol (Trelegy Ellipta) 100-62.5-25 MCG/ACT aerosol powder Inhale 1 puff in the morning. gabapentin (Neurontin) 300 MG capsule Take 1 capsule by mouth nightly. 30 capsule 1 irbesartan-hydroCHLOROthiazide (Avalide) 150-12.5 MG tablet Take 1 tablet by mouth daily. lenalidomide (Revlimid) 15 MG capsule Take 1 capsule by mouth daily. Take for 14 days, then off 14 days. 28 day cycle. Take whole with water. Do not break, chew, or open. 14 capsule 0 methocarbamol (Robaxin) 500 MG tablet TAKE 1 TABLET BY MOUTH EVERY 6 HOURS NEEDED FOR MUSCLE SPASM 60 tablet 0 naloxone (Narcan) 4 mg/0.1 mL nasal spray 1. Give 1 spray in nostril for no/slow breathing or cannot wake after opioid use 2. Call 911 3. Repeat in other nostril if symptoms continue 1 each 0 oxyCODONE (Roxicodone) 5 MG immediate release tablet Take 1 tablet by mouth every 6 hours as neededfor moderate pain or severe pain. 30 tablet 0 polyethylene glycol (MiraLax) 17 g packet Take 17 g by mouth daily as needed (constipation). 30 each 0 potassium chloride CR (Klor-Con M20) 20 MEQ ER tablet TAKE 1 TABLET BY MOUTH TWICE DAILY . SWALLOW WHOLE, DO NOT CRUSH, SPLIT, OR CHEW. 60 tablet 1 prochlorperazine (Compazine) 10 MG tablet Take 1 tablet by mouth every 6 hours as needed for nauseaor vomiting. 30 tablet 3 senna-docusate sodium (Senokot-S) 8.6-50 MG tablet Take 1 tablet by mouth 2 (two) times a day. 28 tablet 0 traMADol (Ultram) 50 MG tablet TAKE 1 TABLET BY MOUTH EVERY 8 HOURS NEEDED FOR SEVERE PAIN 60 tablet 0 No current facility-administered medications on file prior to visit. Cosigned by Afshan Bryan MD at 05/28/2025 3:25 PM EST Associated attestation - Afshan Bryan MD - 05/28/2025 3:25 PM EST I attest to being involved in providing substantive part of the medical decision making in patient care. I personally saw and evaluated the patient. Unfortunately continues to have collapse of the T11 vertebral body. This seems to be the same type of issue that happened with his prior surgery that necessitated revision by my former partner who did his spine surgery. He does not have thoracic myelopathy although we need to keep an eye out for this. 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 Unfortunately he is being treated for recurrence of his cancer and recently had a port placed and I recommend he prioritize this treatment and I will plan to see him back in a few months with repeat radiographs documented in this encounter Plan of Treatment Upcoming Encounters Date Type Department Care Team (Late st Contact Info) Description 12/07/2025 1:00 PM EDT Office Visit Medical Office Building Surgery Spine & Joint [address], [address] [place] [address] Afshan Bryan MD [address] [place] [address] documented as of this encounter Goals Goal Patient Goal Type Associated Problems Recent Progress Patient-Stated? Author Autogenerat ed Goal Care Plan Autogenerated Problem No Rajiv Garcias MD documented as of this encounter Results * XR Scoliosis Entire Spine 2 or 3 Views (05/28/2025 1:30 PM EST) Anatomical Region Laterality Modality Spine Digital Radiogra phy Impressions 05/28/2025 1:44 PM EST 1. Posterior fusion from T5 to T11 spanning compression deformity at T7, T9 and T11 and vertebroplasty at T7 and T11 with unchanged loss of vertebral body height. 2. Moderate degenerative disc changes at C3-C4, T11-T12, L4-L5 and L5-S1 with grade 1 anterolisthesis at L3-L4 and minimal posterior subluxation at T11-T12 and T12- L1. CRITICAL RESULT: No. COMMUNICATION: Per this written report. Drafted by Tenzin Hodge MD on 05/28/2025 1:39 PM Final report signed by Tenzin Hodge MD on 05/28/2025 1:44 PM Narrative 05/28/2025 1:44 PM EST CLINICAL INDICATION: pain TECHNIQUE: XR SCOLIOSIS ENTIRE SPINE 2 OR 3 VIEWS COMPARISON: February 23, 2025. FINDINGS: 2 views of the spine show posterior fusion from T5 to T11. Compression deformity at T7, T9 and T11 with unchanged loss of vertebral body height. Changes of vertebroplasty at T7 and T11. No hardware complication. No bone destruction. No paraspinal mass. Moderate degenerative disc changes at C3-C4, T11-T12, L4-L5 and L5-S1. Grade 1 anterolisthesis at L3-L4. Minimal posterior subluxation at T11- T12 and T12-L1. No hardware complication. Hypoinflated chest with expected bibasilar atelectasis. Cardiac silhouette is appropriate in size and configuration for degree of lung inflation. Mild degenerative changes of the sacroiliac joints. Procedure Note Tenzin Hodge MD - 05/28/2025 CLINICAL INDICATION: pain TECHNIQUE: XR SCOLIOSIS ENTIRE SPINE 2 OR 3 VIEWS COMPARISON: February 23, 2025. FINDINGS: 2 views of the spine show posterior fusion from T5 to T11. Compressiondeformity at T7, T9 and T11 with unchanged loss of vertebral body height.Changes of vertebroplasty at T7 and T11. No hardware complication. No bonedestruction. No paraspinal mass. Moderate degenerative disc changes atC3-C4, T11-T12, L4-L5 and L5-S1. Grade 1 anterolisthesis at L3-L4. Minimalposterior subluxation at T11-T12 and T12-L1. No hardware complication.Hypoinflated chest with expected bibasilar atelectasis. Cardiac silhouetteis appropriate in size and configuration for degree of lung inflation.Mild degenerative changes of the sacroiliac joints. IMPRESSION: 1.Posterior fusion from T5 to T11 spanning compression deformity at T7,T9 and T11 and vertebroplasty at T7 and T11 with unchanged loss ofvertebral body height. 2.Moderate degenerative disc changes at C3-C4, T11-T12, L4-L5 and L5-S1with grade 1 anterolisthesis at L3-L4 and minimal posterior subluxation [id number] and T12-L1. CRITICAL RESULT: No. COMMUNICATION: Per this written report. Drafted by Tenzin Hodge MD on 05/28/2025 1:39 PM Final report signed by Tenzin Hodge MD on 05/28/2025 1:44 PM Heladio SAHU IMG XR PROCEDURES Final Resul t documented in this encounter Visit Diagnoses Diagnosis S/P spinal fusion- Primary Arthrodesis status Chronic midline thoracic back pain S/P spinal fusion Arthrodesis status Chronic midline thoracic back pain documented in this encounter Additional Health Concerns Active Problems Noted Date Diagnosed Date Autogenerated Problem 10/19/2024 Assessment Noted Time A fall risk assessment has been complete d for the patient 05/28/2025 1:00 PM EST A Body Mass Index follow-up plan has been documented for the patient 05/28/2025 3:25 PM EST documented as of this encounter Care Teams 7Th Grade Teacher Relationship Specialty Start Date End Date Parrish Thurman MD [address] [place] [address] [place] [address] PCP - General 10/19/24 documented as of this encounter
--- OUTSIDE RECORDS SUMMARY | 2025-05-28 13:15 | XMS_ITS | Encounter Summary ---
Author Organization Healthcare Address [address] [place] [address] Care Team Providers Care Regeneration Operator Name Role Phone Parrish Thurman MD Primary Care Provider + [phone] Encounter Details Date Type Department Care Team (Latest Contact Info) Description 05/28/2025 1:15 PM EST - 05/28/2025 11:59 PM [facility] Hospital Encounter Medical Office Building Radiology [address] [place] [address] S/P spinal fusion; Chronic midline thoracic back pain Discharge Disposition: Home or Self Care Social [...] time in the past 12 m [facility], were you homeless or living in a [...] drink first t kiet in the morning (EYE-GRADES 7 AND 8 VISITING TEACHER) to steady your nerves or to get [...] Start Date Job End Date 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 file Not on file Not on file documented as of this encounter Medications at Time of Discharge [...] Take 1 tablet by mouth daily. 02/19/2025 polyethylene glycol (MiraLax) 17 g packet Take [...] (two) times a day. 28 tablet 10/28/2024 acyclovir (Zovirax) 400 MG tabletIndications:Mu ltiple myeloma not having achieved remission (CMS/HCC) Take 2 tablets by mouth 2 times a day. 120 tablet 3 03/19/2025 gabapentin (Neurontin) 300 MG capsule Take 1 capsule by mouth nightly. 30 capsule 1 03/22/2025 lenalidomide (Revlimid) 15 MG capsuleIndications:M ultiple myeloma [...] mouth every 6 hours as needed for severe pain. 30 tablet 05/28/2025 potassium chloride CR (Klor-Con M20) 20 MEQ ER tablet TAKE 1 TABLET BY MOUTH TWICE DAILY . SWALLOW WHOLE, DO NOT CRUSH, SPLIT, OR CHEW. 60 tablet 1 05/15/2025 traMADol (Ultram) 50 MG tablet TAKE 1 TABLET BY MOUTH EVERY 8 HOURS NEEDED FOR SEVERE PAIN 60 tablet 03/01/2025 documented as of this encounter Plan of Treatment Upcoming Encounters Date Type Department Care Team ([facility] st Contact Info) Description 12/07/2025 1:00 PM EDT Office Visit Medical Office Building Surgery Spine & Joint [address] [facility] [address] [facility] [address] [facility], [address] [place] [address] Afshan Bryan MD [address] [place] [address] documented as of this encounter Goals Goal Patient Goal Type Associated Problems Recent Progress Patient-Stated? Author Autogenerat ed Goal Care Plan Autogenerated Problem No Rajiv Garcias MD documented as of this encounter Procedures Procedure Name Priority Date/Time Associated Diagnosis Comments XR SCOLIOSIS ENTIRE SPINE 2 OR 3 VIEWS Routine 05/28/2025 1:30 PM EST S/P spinal fusion Chronic midline thoracic back pain documented in this encounter Results * XR Scoliosis Entire [...] anterolisthesis at L3-L4 and minimal posterior subluxation [id number] and T12-L1. CRITICAL RESULT: No. COMMUNICATION: Per this written report. Drafted by Tenzin Hodge MD on 05/28/2025 1:39 PM Final report signed by Tenzin Hodge MD on 05/28/2025 1:44 PM us Hel[facility] IMG XR PROCEDURES Final Resul t documented in this encounter Visit Diagnoses Diagnosis S/P spinal fusion Arthrodesis status Chronic midline [...] documented as of this encounter Care Teams Regeneration Operator Relationship Specialty Start Date End Date Parrish Thurman MD [facility] [place] [address] PCP - General 10/19/24 documented as of this encounter
--- OUTSIDE RECORDS SUMMARY | 2025-06-13 09:00 | XMS_ITS ---
Author Organization Ellen Address [address] [facility] [address] [place] [id number] Care Team Providers Care Training Systems Officer Name Role Phone Funmi Thurman Primary Care Provider FUNMI THURMAN Unavailable Unavailable Allergies Allergen (clinical drug ingredient) Drug/Non Drug Allergy documented on EMR Reaction Allergy Type Onset Date Status rosuvastatin Crestor muscle aches Drug Allergy A ctive REASON FOR VISIT 3 months Medications Medication SIG (Take, Route, Frequency, Duration) Notes Start Date End Date Status Nebulizer - as directed Active Trelegy Ellipta 100-62.5-25 MCG/ACT 1 puff Inhalation Once a day; Duration: 30 days Active traMADol HCl 50 MG 1 tablet as needed Orally every 6 hours 12/08/2024 Active Methocarbamol 500 MG 1 tablets Orally ev jana 6 hrs as needed Active Levalbuterol HCl 1.25 MG/3ML 3 ml by neb ulizer q 4 hours as needed; Duration: 90 days Active Albuterol Sulfate HFA 108 (90 Base) MCG/ACT 2 puff(s) inhaled 4 times a day as needed Active Irbesartan-hydroCHLOROthiazi de 150-12.5 MG 1 tablet Orally Once a day 02/19/2025 Active Vital Signs Blood pressure systolic 152 mm Hg 06/13/20 25 Blood pressure diastolic 74 mm Hg 025 Heart Rate 81 /min 06/13/2025 Height 69 in 06/13/2025 Weight 258.6 lbs 06/13/2025 BMI 38.18 kg/m2 06/13/2025 Encounters Encounter Location Date Provider Diagnosis AL-J[facility] [facility] [address] [place] [id number] 06/13/2025 Funmi Thurman Essential hypertensi on I10 and Chronic obstructive pulmonary disease, unspecified COPD type J44.9 Assessments Encounter Date Diagnosis (ICD Code) Assessment Notes Treatment Notes Treatment Clinical Notes Section Notes 06/13/2025 Essential hypertension (ICD-10 - I10) 06/13/2025 Chronic obstructive pulmonary disease, unspecified COPD type (ICD-10 - J44.9) Plan Of Treatment Medication Medication Name Sig Start Date Stop Date Notes Albuterol Sulfate HFA 108 (9 0 Base) MCG/ACT 2 puff(s) inhaled 4 times a day as needed Irbesartan-hydroCHLOROthiazi de 150-12.5 MG 1 tablet Orally Once a day 02/19/2025 Next Appt Details Follow Up: 4 Months, Reason: Provider Name:Funmi chavira, 10/12/2025 01:30:00 PM, [address] [facility] [address], [place], [id number], Progress Notes * DEEJAY HarjitDOB:1955 (69 yo M)Acc No.[id number]:06/13/2025 Progress Notes Patient: Harjit WEBBER Provider: Leigha Thurman M.D. :1955 A ge:69 Y S ex:Male Date:06/13/2025 Address:[address] [place] [address], [id number] Subjective: * Chief Complaints: * 1 . 3 months. * HPI: C ardiology: 69 year old male presents with c/o Blood Pressure Elevated P t here for 3 mo checkup on hyerptension. Pt states he is doing well and does not have any concerns at this time. A llergy/Asthma: c/o shortness of breath P t complains of feeling short of breath since starting chemo therapy. Pt needs rf on Albuterol inhaler. * Medical History: C OPD dx. November [...] Side Effects. Objective: * Vitals: W t: 258.6, Temp: 98.0, BP: 152/74, HR: 81, Nurse: russel, Ht: 69, BMI:38.18. * Examination: G eneral Examination: General Appearance: N AD, using a cane to assist with ambulation. H eart: R SR. L ungs: c lear to auscultation. E xtremities: b ilateral trace pitting leg edema. Assessment: * Assessment: 1. E ssential hypertension - I10 (Primary) 2 . C hronic obstructive pulmonary disease, unspecified COPD type - J44.9 Plan: * Treatment: 2. C hronic obstructive pulmonary disease, unspecified COPD type Refill Albuterol Sulfate HFA Aerosol Solution, 108 (90 Base) MCG/ACT, 2 puff(s), inhaled, 4 times a day as needed, 1, Refills 1. * Procedure Codes: G 2211 Complex e/m visit add on * Follow Up: 4 Months * Images: Billing Information: * Visit Code: 06413 Office Visit, Est Pt., Level 3. * Procedure Codes: G2211 Complex e/m visit add on. * Electronic signature of Jeri Thurman MD on 06/26/2025 at 10:06 AM EST Sign off status: Pending * Provider: Leigha Thurman M.D. Date: 08/14/2024 Generated for Oj baez/Fay/Anjanaransmitting on: 08/27/2024 10:06 AM EST History and Physical Notes * HPI (History of Present Illness) Category Sub-Category Detail Notes Category Not es Cardiology Blood Pressure Elevated Pt here for 3 mo checkup on hyerptension. Pt states he is doing well and does not have any concerns at this time Allergy/Asthma shortness of breath Pt complains of feeling short of breath since starting chemo therapy. Pt needs rf on Albuterol inhaler Examination Category Sub-Category Detail Notes Category Not es General Examination Heart: RSR Lungs: clear to auscultatio n Extremities: bilateral trace itz ing leg edema General Appearance: NAD, using a cane to assist with ambulation
[2025-06-26 10:05] VITALS: BMI 40.1
--- OUTSIDE RECORDS SUMMARY | 2025-06-26 10:10 | XMS_ITS | Encounter Summary ---
Author Organization [employer] ([place], [place], [place], [place], [place]) Address [address] [place] [address] Care Team Providers Care Brick Machine Operator Name Role Phone Unavailable Primary Care Provider Unavailabl e Encounter Details Date Type Department Care Team (Late st Contact Info) Description 08/30/[address] [facility] Family Medicine [facility] [place] [address] ProviderTree MD [facility] [place], [place] [phone] Social History Tobacco Use Types Packs/Day Years [...] Tree Alonso MD - 08/30/2018 6:00 AM CARTRIDGE BELT PUNCHER Patient: PETRA VILLALBA Age: 62 years Sex: [...] Refill(s) fluticasone 50 mcg/inh nasal spray: 1 [place], Nostrils Both, Daily, 0 Refill(s) hydroCHLOROthiazide-triamterene 25 [...] Daily fluticasone 50 mcg/inh nasal spray 1 [place], Nostrils Both, Daily hydroCHLOROthiazide-triamterene 25 mg-37.5 mg [...] All Problems Wears glasses / SNOMED CT 075040343 / Confirmed Sinusitis / SNOMED CT 62646335 / Confirmed Hyperlipidemia / SNOMED CT 60938643 / Confirmed High blood pressure / SNOMED CT 38388118 / Confirmed GERD - Gastro-esophageal reflux disease / SNOMED CT 1049956175 / Confirmed Shortness of breath with exercise / SNOMED CT 163784045 / Confirmed Back pain / SNOMED CT 1817455271 / Confirmed At risk for sleep apnea / IMO 25671675 / Confirmed Asthma / SNOMED CT 200891676 / Confirmed Arthritis / SNOMED CT 6599087 / Confirmed Allergic rhinitis / SNOMED CT 772614975 / Confirmed, Active Problems (11) Allergic rhinitis [...] painful ROM R knee. Integumentary: Warm, Dry, [place]. Neurologic: Alert, Oriented. Psychiatric: Cooperative, Appropriate mood [...]
--- OUTSIDE RECORDS SUMMARY | 2025-06-26 10:10 | XMS_ITS | Encounter Summary ---
Author Organization [facility] Address [address] [place] [address] Care Team Providers Care Contracts Advisor Name Role Phone Parrish Thurman MD Primary Care Provider + [phone] Encounter Details Date Type Department Care Team [...] in the past 12 m [facility], were you homeless or living in a half-way (including now)? 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 file Not on file Not on file documented as of this encounter Plan of Treatment Upcoming Encounters Date Type Department Care Team ([facility] Contact Info) Description 12/07/2025 1:00 PM EDT Office Visit Medical Office Building [facility] [address], [address] [place] [address] Afshan Bryan MD [address] [facility] [address] [place] [address] documented as of this encounter [...] documented as of this encounter Care Teams Contracts Advisor Relationship Specialty Start Date End Date Parrish Thurman MD [facility] [address], [place] [address] PCP - General 10/19/24 documented as of this encounter
--- OUTSIDE RECORDS SUMMARY | 2025-06-26 10:10 | XMS_ITS | Encounter Summary ---
Author Organization [employer] ([place], [place], [place], [place], [place]) Address [address] [place] [address] Care Team Providers Care Porcelain Technician Name Role Phone Unavailable Primary Care Provider Unavailabl e Encounter Details Date Type Department Care Team (Late st Contact Info) Description 08/30/2018 Transcribed Document [facility] Family Medicine [address] [place] [address] ProviderTree MD [address] [place], [place] [phone] Social History Tobacco Use Types Packs/Day Years [...] Tree Alonso MD - 08/30/2018 12:44 PM THERAPY DIRECTOR [facility] Main OR PACU Summary Primary Physician: BEATRIZ RAWLS MD-ORYuko Finalized Date/Time: 08/30/18 18:53:12 Pt. Name: PETRA VILLALBA D.O.B./Sex: 1955 Male Med Rec #: [id number] Physician: BEATRIZ RAWLS MD-ORYuko Financial #: [id number] Pt. Type: O Room/Bed: 648/1 Admit/Disch: 08/30/18 06:24:00 - Institution: [facility] Main OR PACU I Case Times Entry 1 In PACU I 08/30/18 14:52:00 Ready for PACU 08/30/18 15:45:00 Discharge Discharge from PACU 08/30/18 17:53:00 I Last Modified By: PAUL PEARSON RN 08/30/18 17:39:47 [facility] Main OR PACU I Case Times Audit 08/30/18 18:52:48 Air Brake Operator: NISHA Modifier: NISHA <+> 1 Discharge from PACU I [facility] Main OR PACU Acuity Entry 1 Start Time 08/30/18 15:45:00 Stop Time 08/30/18 17:53:00 Acuity Level [facility] PACU Acuity I Last Modified By: PAUL PEARSON RN 08/30/18 18:52:57 Finalized By: PAUL PEARSON, RN Document Signatures Signed By: PAUL PEARSON RN 08/30/18 18:53 Electronically signed by Amira [facility] Conversion Education Analyst Cerner at 10/27/2022 8:25 PM CDT documented in this encounter Plan of Treatment Not on file documented as of this encounter Visit Diagnoses Not on filedocumented in this encounter
--- OUTSIDE RECORDS SUMMARY | 2025-06-26 10:10 | XMS_ITS | Encounter Summary ---
Author Organization [employer] ([place], [place], [place], [place], [place]) Address [address] [place] [address] Care Team Providers Care Informatics Manager Name Role Phone Unavailable Primary Care Provider Unavailabl e Encounter Details Date Type Department Care Team (Late st Contact Info) Description 08/30/2018 Transcribed Document [facility] Family Medicine [address] [place] [address] ProviderTree MD [address] [place], [place] [address] Social History Tobacco Use Types Packs/Day Years [...] Tree Alonso MD - 08/30/2018 7:00 AM PEDIATRIC SPEECH THERAPIST Pain Assessment Entered On: 08/30/2018 15:06 EST Performed On: 08/30/2018 12:35 EST by PAUL PEARSON RN Intervention Information: acetaminophen Performed by PAUL PEARSON RN on 08/30/2018 12:30:00 EST acetaminophen,1000mg IV Piggyback,Left Hand(c) Pain Assessment Pain Assessment : Follow-up assessment Pain Scale Goal : 4 PAUL PEARSON RN - 08/30/2018 15:06 EST Electronically signed by Adlaid Collier Conversion Assistant Professor Of Life Sciences Cerner at 10/27/2022 8:14 PM CDT documented in this encounter Plan of Treatment Not on file documented as of this encounter Visit Diagnoses Not on filedocumented in this encounter
--- OUTSIDE RECORDS SUMMARY | 2025-06-26 10:10 | XMS_ITS | Encounter Summary ---
Author Organization [employer] ([place], [place], [place], [place], [place]) Address [address] [place] [address] Care Team Providers Care Fundraising Consultant Name Role Phone Unavailable Primary Care Provider Unavailabl e Encounter Details Date Type Department Care Team (Late st Contact Info) Description 08/19/2018 Transcribed Document [facility] [place] [facility] [place] [address] ProviderTree MD [address] [place] [address] Social History Tobacco Use Types [...] - Tree ProviderMD - 08/19/2018 2:34 PM COKE PRODUCTION HEATER PAT Adult Entered On: 08/19/2018 14:46 EST Performed On: 08/19/2018 14:34 EST by HIRAL MONTOYA RN Height and Weight, Clinical Dosing Height Source : Measured Height Entry Format : [place] Height, Feet : 5 ft(Converted to: 152 cm, 60 Inch) Height, Inches : 8.5 Inch(Converted to: 0 ft 9 Inch, 21.59 cm) Clinical Height : 173.99 cm Weight Source : Standing scale Weight Entry Format : [place] Clinical Dosing Weight : 101.82 kg Weight, Pounds : 224 lb Weight, Ounces : 0 oz Body Surface Area (BSA) : 2.16 m2 Body Mass Index : 33.6 kg/m2 (HI) [place] Body Weight : 69 kg HIRAL MONTOYA [...] Ambulatory Legal Guardian : Spouse Support Person/Patient Motorcycle Assembler : Yes Support Person/Pt Rep Name : Wellington Howell - Support Person/Pt Rep Contact Information : [phone] Want Family/Rep/Phys Notified of Admit : No Emergency Contact #1 : Wellington Howell Emergency Contact #1 Emergency Contact #1 Relationship : Emergency Contact #2 : na Emergency Contact #2 Phone Number : na Emergency Contact #2 Relationship : na Information Obtained From : Patient Primary Language : Gibraltarian Preferred Communication Mode : Verbal Communication Barrier [...] HIRAL MONTOYA RN - 08/19/2018 14:34 EST documented in this encounter Plan of Treatment Not on file documented as of this encounter Visit Diagnoses Not on filedocumented in this encounter
--- OUTSIDE RECORDS SUMMARY | 2025-06-26 10:10 | XMS_ITS | Encounter Summary ---
Author Organization [employer] ([place], [place], [place], [place], [place]) Address [address] [place] [address] Care Team Providers Care Maths Tutor Name Role Phone Unavailable Primary Care Provider Unavailabl e Encounter Details Date Type Department Care Team (Late st Contact Info) Description 08/30/2018 Transcribed Document [facility] Family Medicine [address] [place] [address] ProviderTree MD [address] [place] [address] Social History Tobacco Use Types [...] Tree Alonso MD - 08/30/2018 12:44 PM ELECTRIC RANGE PREPARER [facility] Main OR Preop Summary Primary Physician: BEATRIZ RAWLS MD-ORYuko Finalized Date/Time: 08/30/18 13:52:13 Pt. Name: DEEJAYPETRA D.O.B./Sex: 1955 Male Med Rec #: [id number] Physician: BEATRIZ RAWLS MD-ORYuko Financial #: [id number] Pt. Type: O Room/Bed: /6 Admit/Disch: 08/30/18 06:24:00 - Institution: [facility] PreOp Case Times Entry 1 In Preop 08/30/18 05:35:00 Ready for Holding n/a Room Patient Ready for 08/30/18 10:45:00 Surgery Patient Out of Preop 08/30/18 12:03:00 Patient Out of n/a Holding Room Last Modified By: TANA SAENZ RN 08/30/18 13:52:11 [facility] PreOp Case Times Audit 08/30/18 13:52:11 Test Worker: MONICO Modifier: BOWLINC <+> 1 Patient Out of Preop 08/30/18 10:52:31 Test Worker: MONICO Modifier: BOWLINC <+> 1 Patient Ready for Surgery Finalized By: TANA SAENZ, RN Document Signatures Signed By: TANA SAENZ RN 08/30/18 13:52 Electronically signed by Amira [facility] Conversion Farm Planner Cerner at 10/27/2022 8:06 PM CDT documented in this encounter Plan of Treatment Not on file documented as of this encounter Visit Diagnoses Not on filedocumented in this encounter
--- OUTSIDE RECORDS SUMMARY | 2025-06-26 10:10 | XMS_ITS | Referral Summary ---
Author Organization [employer] ([place], [place], [place], [place], [place]) Address [address] [place] [address] Care Team Providers Care Java Application Developer Name Role Phone Unavailable Primary Care [...]
--- OUTSIDE RECORDS SUMMARY | 2025-06-26 10:10 | XMS_ITS ---
Author Organization [facility] Address [address] 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
--- OUTSIDE RECORDS SUMMARY | 2025-06-26 10:10 | XMS_ITS | Clinical Summary ---
Author Organization [facility] Address [address] [place] [address] Care Team Providers Care Science Faculty Member Name Role Phone Parrish Thurman MD Primary Care Provider + [phone] Allergies Active Allergy Reactions Criticality Noted Date [...] 10/29/19 25 Active prochlorperazine (Compazine) 10 MG tabletIndications: Multiple myeloma not having achieved remission (CMS/HCC) Take 1 tablet by mouth every 6 hours as needed for nausea or vomiting. 30 tablet 3 12/01/19 25 Active polyethylene glycol (MiraLax) 17 g packet Take 17 g by mouth daily as needed (constipation ). 30 each 12/09/19 25 Active naloxone (Narcan) 4 mg/0.1 mL nasal spray 1. Give 1 spray in nostril for no/slow breathing or cannot wake after opioid use 2. Call 911 3. Repeat in other nostril if symptoms continue 1 each 12/30/19 25 Active Calcium Carbonate-Vitamin D (calcium-vitamin D) 500-200 MG-UNIT tabletIndications: Hypocalcemia Take 1 tablet by mouth daily. 30 tablet 11 01/26/20 25 07/12/2 026 Active irbesartan-hydroCH LOROthiazide (Avalide) 150-12.5 MG tablet Take 1 tablet by mouth daily. 02/20/20 25 Active traMADol (Ultram) 50 MG tablet TAKE 1 TABLET BY MOUTH EVERY 8 HOURS NEEDED FOR SEVERE PAIN 60 tablet 03/01/20 25 Active methocarbamol (Robaxin) 500 MG tabletIndications: Degeneration of intervertebral disc of lumbar region with discogenic back pain and lower extremity pain TAKE 1 TABLET BY MOUTH EVERY 6 HOURS NEEDED FOR MUSCLE SPASM 60 tablet 03/01/20 25 Active acyclovir (Zovirax) 400 MG tabletIndications: Multiple myeloma not having achieved remission (CMS/HCC) Take 2 tablets by mouth 2 times a day. 120 tablet 3 03/19/20 25 Active gabapentin (Neurontin) 300 MG capsule Take 1 capsule by mouth nightly. 30 capsule 1 03/22/20 25 Active lenalidomide (Revlimid) 15 MG capsuleIndications :Multiple [...] or severe pain. 30 tablet 11/07/19 25 025 Discontin ued(Reord er) Active Problems Problem Noted Date Diagnosed Date [...] 11/08/2024 Cancer Staging:Clinical stage from 11/13/2024:RISS Stage III(Bmqt-6-decnznhhsajii (mg/L): 7.7, Albumin (g/dL): 3.6, ISS: Stage [...] 09/08/2010 Monoclonal gammopathy 10/27/2024 Overview (11/10/2024): IgG [place] Resolved Problems Problem Noted Date Diagnosed Date Resolved Date Chronic obstructive pulmonar y disease with acute lower respiratory infection 01/25/20252024 COPD (chronic obstructive pu lmonary disease) with acute bronchitis 05/13/2016 04/01/2025 Encounters Date Type Department Care Team Description 05/28/2025 1:15 PM EST - 05/28/2025 11:59 PM EST Hospital Encounter Medical Office Building Radiology [address] [place] [address] S/P spinal fusion; Chronic midline thoracic back pain Discharge Disposition: Home or Self Care 05/28/2025 1:00 PM EST Office Visit Medical Office Building Surgery Sp[facility] [address], [address] [place] [address] Afshan Bryan MD S/P spinal fusion (Primary Dx); Chronic midline thoracic back pain 05/28/2025 Travel 05/15/2025 Refill [facility] Hematology/BMT and Cellular Therapy Program [address] [facility], [address] [place] [address] Mohit Villarreal MD 04/27/2025 Refill [facility] Hematology/BMT and Cellular Therapy Program [address] [facility], [address] [place] [phone] Mohit Villarreal MD Multiple myeloma not having achieved remission (CMS/HCC) 04/26/2025 Telephone [facility] [address] [place] [address] Victorina Hurt, PharmD 04/18/2025 Telephone [facility] Hematology/BMT and Cellular Therapy Program [address] [facility], [address] [place] [phone] Mohit Villarreal MD 04/05/2025 2:00 PM EDT - 04/05/2025 11:59 PM EDT Hospital Encounter [facility] Infusion [address] [place] [address] Multiple myeloma, remission status unspecified (CMS/HCC) (Primary Dx) Discharge Disposition: Home or Self Care 04/05/2025 Travel 03/27/2025 Orders Only [facility] Hematology/BMT and Cellular Therapy Program [address] [facility], [address] [place] [phone] Natalie Andrews RN Multiple myeloma, remission status unspecified (CMS/HCC) (Primary Dx) 03/27/2025 Refill [facility] Hematology/BMT and Cellular Therapy Program [address] [facility], [address] [place] [address] Mohit Villarreal MD Multiple myeloma not [...] any time in the past 12 [facility], were you homeless or living in a senior living (including now)? 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 [...] Joint [address], [address] [place] [address] Afshan Bryan MD [address] [place] [address] Health Maintenance Due Date Last [...] (2 - Td or Tdap) 08/17/2023 08/17/2013 [id number] Vaccine ( season) 2025 06/19/2024, 06/02/2023, 05/14/2022, Additional history exists [facility]-Influenza Vaccine (#1) 03/12/202504/28, 03/23/2023, 05/14/2022, Additional history exists [facility]- SDOH Screenings 03/17/2025 [facility]-Adult SDOH Screenings 03/17/2025 09/14/2024 [facility]-Depression Screening 12/14/2025 12/14/2024 [facility]-Pneumococcal Vaccine: 50+ Years Completed 05/14/2022, 02/07/2017 [facility]-RSV Vaccine: 60+ Years or Completed 03/23/2023 [facility]-Obesity Intervention Completed 025, 03/22/2025, 03/08/2025, Additional history exists HPV Vaccines (No Doses Required) Completed [facility]-HIB Vaccines Aged Out No longer e [...] Garcias MD Medical Devices Implanted Type Area Paint Department Supervisor Device Identifier Shelf Expiration Date Model / Serial / Lot Knee Knee Right: Knee Jacinto Viper2 Straight 400mm - [id number] Implanted:Qty: 1 on 09/14/2024 by Rajiv Garcias MD at [facility] Jacinto N/A: Spine Thoracic [employer] -[id number] 09/15/2024 [id number] / / Chip Bone 20cc - [id number] - [id number] Implanted:Qty: 1 on 09/14/2024 by Rajiv Garcias MD at [facility] N/A: Spine Thoracic [id number] 05/25/2029 PCAN1/4 / [id number] / [id number] Matrix Fibergraft Bg Lg 12.5cc - [id number] Implanted:Qty: 1 on 09/14/2024 by Rajiv Garcias MD at [facility] N/A: Spine Thoracic [employer]ine [employer] LP-[id number] 12/16/2026 [id number] / / [id number] Screw 5.5mm Expedium Verse Fen 5mm X 35mm - [id number] Implanted:Qty: 2 on 09/14/2024 by Rajiv Garcias MD at [facility] N/A: Spine Thoracic [employer]ine [employer] LP-[id number] 09/15/2024 [id number] / / Screw 5.5mm Expedium Verse Fen 5mm X 40mm - [id number] Implanted:Qty: 2 on 09/14/2024 by Rajiv Garcias MD at [facility] N/A: Spine Thoracic [employer]ine [employer] LP-[id number] 09/15/[id number] / / Screw 5.5mm Expedium Verse Fen 5mm X 45mm - [id number] Implanted:Qty: 2 on 09/14/2024 by Rajiv Garcias MD at [facility] N/A: Spine Thoracic [employer]ine [employer] LP-[id number] 09/15/[id number] / / Screw 5.5mm Expedium Verse Fen 6mm X 45mm - [id number] Implanted:Qty: 2 on 09/14/2024 by Rajiv Garcias MD at [facility] N/A: Spine Thoracic [employer]ine [employer] LP-[id number] 09/14/[id number] / / Screw Set 5.5mm Expedium Verse Unitized - [id number] Implanted:Qty: 8 on 09/14/2024 by Rajiv Garcias MD at [facility] N/A: Spine Lumbar [employer]ine [employer] LP-[id number] 09/14/[id number] / / Matrix Fibergraft Bg Medium 6.25cc - [id number] Implanted:Qty: 1 on 10/25/2024 by Rajiv Garcias MD at [facility] Spine Lumbar [employer]ine [employer] LP-[id number] 05/25/2027 [id number] / / [id number] Kit Confidence Spinal Cement System Plus 11cc - [id number] Implanted:Qty: 1 on 10/25/2024 by Rajiv Garcias MD at [facility] N/A: Spine Lumbar [employer] Spine [employer] LP-[id number] 05/11/2026 [id number] / / [id number] Screw 5.5mm Expedium Verse Fen 6mm X 45mm - [id number] Implanted:Qty: 4 on 10/25/2024 by Rajiv Garcias MD at [facility] N/A: Spine Lumbar [employer] Spine [employer] LP-[id number] 10/25/[id number] / / Screw Set 5.5mm Expedium Verse Unitized - [id number] Implanted:Qty: 10 on 10/25/2024 by Rajiv Garcias MD at [facility] N/A: Spine Lumbar [employer] Spine [employer] LP-[id number] 10/25/2025 [id number] / / Jacinto Viper2 Straight 480mm - [id number] Implanted:Qty: 1 on 10/25/2024 by Rajiv Garcias MD at [facility] N/A: Spine Lumbar DePuy Spine [employer] LP-[id number] 10/25/2025 [id number] / / Chip Bone 40cc - [id number] - [id number] Implanted:Qty: 1 on 10/25/2024 by Rajiv Garcias MD at [facility] Spine Lumbar [facility]-[id number] 08/24/2029 PCAN1/2 / [id number] / [id number] Procedures Procedure Name Priority Date/Time Associated Diagnosis [...] anterolisthesis at L3-L4 and minimal posterior subluxation [id number] and T12-L1. CRITICAL RESULT: No. COMMUNICATION: Per this written report. Drafted by Tenzin Hodge MD on 05/28/2025 1:39 PM Final report signed by Tenzin Hodge MD on 05/28/2025 1:44 PM Heladio SAHU IMG XR PROCEDURES Final Resul t * (ABNORMAL) CBC and differential (04/05/2025 2:20 PM EDT) WBC Count 4.72 3.70 - 10.30 10*3/uL LAB HEMATOLOGY METHOD 04/05/2025 4:07 PM EDT [facility] RBC Count 3.80(L) 4.60 - 6.10 10*6/uL LAB HEMATOLOGY METHOD 04/05/2025 4:07 PM EDT [facility] HGB 10.8(L) 13.7 - 17.5 g/dL LAB HEMATOLOGY METHOD 04/05/2025 4:07 PM EDT [facility] HCT 33.6(L) 40.0 - 51.0 % LAB HEMATOLOGY METHOD 04/05/2025 4:07 PM EDT [facility] Platelet Count 182 155 - 369 10*3/uL LAB HEMATOLOGY METHOD 04/05/2025 4:07 PM EDT [facility] MCV 88 79 - 98 fL LAB HEMATOLOGY METHOD 04/05/2025 4:07 PM EDT [facility] MCH 28.4 26.0 - 32.0 pg LAB HEMATOLOGY METHOD 04/05/2025 4:07 PM EDT [facility] MCHC 32.1 30.7 - 35.5 g/dL LAB HEMATOLOGY METHOD 04/05/2025 4:07 PM EDT [facility] RDW 18.9(H) 11.5 - 14.5 % LAB HEMATOLOGY METHOD 04/05/2025 4:07 PM EDT [facility] MPV 11.7 8.8 - 12.5 fL LAB HEMATOLOGY METHOD 04/05/2025 4:07 PM EDT [facility] nRBC 0.0 <=0.0 per 100 WBCs LAB HEMATOLOGY METHOD 04/05/2025 4:07 PM EDT [facility] Differential Type Automated LAB HEMATOLOGY METHOD 04/05/2025 4:07 PM EDT [facility] Neutrophils % 32 % LAB HEMATOLOGY METHOD 04/05/2025 4:07 PM EDT [facility] Lymphocytes % 31 % LAB HEMATOLOGY METHOD 04/05/2025 4:07 PM EDT [facility] Monocytes % 29 % LAB HEMATOLOGY METHOD 04/05/2025 4:07 PM EDT [facility] Eosinophils % 6 % LAB HEMATOLOGY METHOD 04/05/2025 4:07 PM EDT [facility] Basophils % 2 % LAB HEMATOLOGY METHOD 04/05/2025 4:07 PM EDT [facility] Immature Granulocytes % 0 % LAB HEMATOLOGY METHOD 04/05/2025 4:07 PM EDT [facility] Neutrophils Absolute 1.50(L) 1.60 - 6.10 10*3/uL LAB HEMATOLOGY METHOD 04/05/2025 4:07 PM EDT [facility] Lymphocytes Absolute 1.48 1.20 - 3.90 10*3/uL LAB HEMATOLOGY METHOD 04/05/2025 4:07 PM EDT [facility] Monocytes Absolute 1.37(H) 0.30 - 0.90 10*3/uL LAB HEMATOLOGY METHOD 04/05/2025 4:07 PM EDT [facility] Eosinophils Absolute 0.29 0.00 - 0.50 10*3/uL LAB HEMATOLOGY METHOD 04/05/2025 4:07 PM EDT [facility] Basophils Absolute 0.07 0.00 - 0.10 10*3/uL LAB HEMATOLOGY METHOD 04/05/2025 4:07 PM EDT [facility] Immature Granulocytes Absolute 0.01 0.00 - 0.06 10*3/uL LAB HEMATOLOGY METHOD 04/05/2025 4:07 PM EDT [facility] Blood Venous blood specimen / Unknown Venipuncture / Unknown 04/05/2025 2:20 PM EDT 04/05/2025 2:45 PM EDT [facility] - 04/05/2025 4:07 PM EDT Therapeutic decision making should be based on absolute values, rather than percentages. us Mohit Villarreal MD LAB BLOOD ORDERABLES Final Result [facility] [address] [place] [address] from Last 3 Months Additional Health Concerns Active Problems Noted Date Diagnosed Date Autogenerated Problem 10/19/2024 Insurance [facility] Advance Directives * Full Code (Latest [...] Patient has decision-making capacity? Yes Care Teams Science Faculty Member Relationship Specialty Start Date End Date Parrish Thurman MD [address] [place] [address] PCP - General 10/19/24
--- OUTSIDE RECORDS SUMMARY | 2025-06-26 10:10 | XMS_ITS | Clinical Summary ---
Author Organization [facility] Address [address] [place] [address] Care Team Providers Care Recruiting Team Lead Name Role Phone Provider, No Known Primary [...] Insurance [facility] P[facility] Care Teams Recruiting Team Lead Relationship Specialty Start Date End Date Provider, No Known [facility] [address] PCP - General 10/22/20
--- OUTSIDE RECORDS SUMMARY | 2025-06-26 10:10 | XMS_ITS | Encounter Summary ---
Author Organization [employer] ([place], [place], [place], [place], [place]) Address [address] [place] [address] Care Team Providers Care Salesforce Administrator Name Role Phone Unavailable Primary Care Provider Unavailabl e Encounter Details Date Type Department Care Team (Late st Contact Info) Description 08/30/[address] [facility] [place] Family Medicine [address] [place] [address] ProviderTree MD [facility] [place] [id number] Social History Tobacco Use Types Packs/Day Years [...] - Tree ProviderMD - 08/30/2018 2:59 PM STAKING TECHNICIAN Evaluation, Occupational Therapy Entered On: 08/31/2018 14:39 [...] SBA, min A for LB dressing using soda jerker. Pt educated on use AE for LB [...] LEVAR BAJWA OTR/L - 08/31/2018 14:34 EST [place] OT Charges OT Selfcare/Hm Mgmt Ea 15 Min : 1 OT Eval Low Complexity : 1 LEVAR BAJWA OTR/Sis - 08/31/2018 14:34 EST Electronically signed by Am[facility] Conversion Degreasing Solution Mixer Cerner at 10/27/2022 8:26 PM CDT documented in this encounter Plan of Treatment Not on file documented as of this encounter Visit Diagnoses Not on filedocumented in this encounter
--- OUTSIDE RECORDS SUMMARY | 2025-06-26 10:10 | XMS_ITS | Encounter Summary ---
Author Organization [employer] ([place], [place], [place], [place], [place]) Address [address] [place] [address] Care Team Providers Care Acid Filler Name Role Phone Unavailable Primary Care Provider Unavailabl e Encounter Details Date Type Department Care Team (Late st Contact Info) Description 08/30/2018 Transcribed Document [facility] [place] [address] [place] [address] ProviderTree MD [address] [place] [id number] Social History Tobacco Use Types Packs/Day Years [...] - Tree ProviderMD - 08/30/2018 2:59 PM INDIRECT SALES REPRESENTATIVE Pain Assessment Entered On: 08/31/2018 15:30 EST [...]
--- OUTSIDE RECORDS SUMMARY | 2025-06-26 10:10 | XMS_ITS | Encounter Summary ---
Author Organization [facility] Address [address] [id number] Care Team Providers Care Computer Networking Instructor Adjunct Name Role Phone Parrish Thurman MD Primary Care Provider + [phone] Reason for Visit * Reason Comments Med Refill Encounter Details Date Type Department Care Team ([facility] st Contact Info) Description 05/15/2025 Refill [facility] Hematology/BMT and Cellular Therapy Program [address] [address] Mohit Villarreal MD [address] [facility] [address] [place] [address] Social History Tobacco Use Types Packs/Day Years [...] in the past 12 m [facility], were you homeless or living in a prison (including now)? 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 file Not on file Not on file documented as of this encounter Plan of Treatment Upcoming Encounters Date Type Department Care Team (Late st Contact Info) Description 12/07/2025 1:00 PM EDT Office Visit Medical Office Building Surgery Spine & Joint [address], [address] [place] [address] Afshan Bryan MD [address] [place] [address] documented as of this encounter [...] documented as of this encounter Care Teams Computer Networking Instructor Adjunct Relationship Specialty Start Date End Date Parrish Thurman MD [address] [facility] [address] [place] [address] PCP - General 10/19/24 documented as of this encounter
--- OUTSIDE RECORDS SUMMARY | 2025-06-26 10:10 | XMS_ITS | Encounter Summary ---
Author Organization [employer] ([place], [place], [place], [place], [place]) Address [address] [place] [address] Care Team Providers Care Plastic Cutter Name Role Phone Unavailable Primary Care Provider Unavailabl e Encounter Details Date Type Department Care Team (Late st Contact Info) Description 08/30/2018 Transcribed Document [facility] [place] [address] Provider[place] [address] Social History Tobacco Use Types [...] - Tree ProviderMD - 08/30/2018 2:59 PM THREAD TWISTER Evaluation, Physical Therapy Entered On: 08/31/2018 12:38 [...] PT : 62 yo male adm to [facility] 08/30 for adv OA R Knee and [...] to Sit Device : Rails, Other: leg container maker Sit to Stand Device : Belt, gait, Walker, front wheel Stand to Sit Device : Belt, gait, Walker, front wheel TEJAL ROBERTS, PT - 08/31/2018 12:08 EST AM [facility] Basic Mobility Turning Over in Bed : Unable Sit Down On/Stand Up From Chair w/ Arms : Unable Move Back Lying to Sitting Side of Bed : Unable Moving To/From a Bed to Chair : A little Need to Walk in Hospital Room : A little Climbing 3-5 Steps with a Railing : A little AM-[facility] Basic Mobility Raw Score : 12 AM-[facility] Basic Mobility Standardized Score : 35.33 AM-[facility] Basic Mobility CMS 0-100% Score : 68.66 % TEJAL ROBERTS, PT - 08/31/2018 12:08 EST Image 1 - Images currently included in the form version of this document have not been included in the text rendition version of the form. 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 Exercise 15 min : 2 Gait Training Each 15 Min : 1 PT Eval Low Complexity : 1 TEJAL ROBERTS, PT - 08/31/2018 12:08 EST documented in this encounter Plan of Treatment Not on file documented as of this encounter Visit Diagnoses Not on filedocumented in this encounter
--- OUTSIDE RECORDS SUMMARY | 2025-06-26 10:10 | XMS_ITS | Encounter Summary ---
Author Organization [employer] ([place], [place], [place], [place]) Address [address] [place] [address] Care Team Providers Care Internal Combustion Engine Assembler Name Role Phone Unavailable Primary Care Provider Unavailabl e Encounter Details Date Type Department Care Team (Late st Contact Info) Description 08/30/2018 Transcribed Document [facility] [place] Family Medicine [facility] [place] [address] ProviderTree MD [facility] [place] [id number] Social History Tobacco Use Types Packs/Day Years [...] Tree Alonso MD - 08/30/2018 2:42 PM [facility] [employer] DATE OF PROCEDURE:08/30/2018 PREOPERATIVE DIAGNOSIS(ES): Right knee osteonecrosis, medial femoral condyle with degenerative arthritis. POSTOPERATIVE DIAGNOSIS(ES): Right knee osteonecrosis, medial femoral condyle with degenerative arthritis. PROCEDURE: Right total knee replacement. SURGEON: Jakob Kimble MD PAPIER MACHE MOLDER: Jakob Celaya PA-C ANESTHESIA: Regional block with [...]
--- OUTSIDE RECORDS SUMMARY | 2025-06-26 10:10 | XMS_ITS | Encounter Summary ---
Author Organization [employer] ([place], [place], [place], [place], [place]) Address [address] [place] [address] Care Team Providers Care Directory Carrier Name Role Phone Unavailable Primary Care Provider Unavailabl e Encounter Details Date Type Department Care Team (Late st Contact Info) Description 08/30/2018 Transcribed Document [facility] [place] Family Medicine [address] [place] [address] ProviderTree MD [address] [place] [phone] Social History Tobacco Use Types Packs/Day Years [...] Tree Alonso MD - 08/30/2018 10:15 AM PAINTER Procedural Documentation Entered On: 08/30/2018 10:21 EST Performed On: 08/30/2018 10:15 EST by TANA SAENZ RN Procedure Documentation Procedure Case Attendee : BAKARI SANCHEZ MD Procedure Case Attendee Role : Anesthesiologist Procedure Case Attendee Role 2 : open hearth laborer Case Attendee 2 : TANA SAENZ RN Procedure Case Attendee Role 3 : open hearth laborer Case Attendee 3 : DESEAN GUILLEN RN [...]
--- OUTSIDE RECORDS SUMMARY | 2025-06-26 10:10 | XMS_ITS | Encounter Summary ---
Author Organization [employer] ([place], [place], [place], [place], [place]) Address [address] [place] [address] Care Team Providers Care Development Mgr Name Role Phone Unavailable Primary Care Provider Unavailabl e Encounter Details Date Type Department Care Team (Late st Contact Info) Description 08/30/2018 Transcribed Document [facility] [place] Counts include 234 beds at the [facility] [place] [address] ProviderTree MD Counts include 234 beds at the [facility] [place] [id number] Social History Tobacco Use Types Packs/Day Years [...] - Tree ProviderMD - 08/30/2018 6:23 AM AT HOME INDEPENDENT CALL CENTER AGENT Admission History, Adult Entered On: 08/30/2018 18:55 [...] Ambulatory Legal Guardian : Spouse Support Person/Patient Color Paste Mixing Supervisor : Yes Support Person/Pt Rep Name : Wellington Howell - Support Person/Pt Rep Contact Information : [phone] Want Family/Rep/Phys Notified of Admit : No Emergency Contact #1 : Wellington Lynda Emergency Contact #1 Emergency Contact #1 Relationship : Emergency Contact #2 : na Emergency Contact #2 Phone Number : na Emergency Contact #2 Relationship : na Information Obtained From : Patient Primary Language : Citizen Of [place] Preferred Communication Mode : Verbal Communication Barrier [...] Level : 46 or > High Risk [place] Fall Interventions : Adequate lighting, Assistive devices [...] since. (Last Updated: 08/19/2018 14:37:33 EST by HIARL MONTOYA RN) Alcohol: Alcohol Use Frequency Rarely. (Last Updated: 08/19/2018 14:37:43 EST by HIRAL MONTOYA RN) Substance Abuse: Drug Use Hx: No. Use in Last 12 Months: No. (Last Updated: 08/19/2018 14:37:49 EST by IHRAL MONTOYA RN) Home/Environment: Lives with Spouse. Living situation: Home/Independent. (Last Updated: 08/19/2018 14:39:03 EST by HIRAL MONTOYA RN) Employment/School: Employed (Last Updated: 08/19/2018 14:39:10 EST by HIRAL MONTOYA RN) Height and Weight, Clinical Dosing Height Source : Measured Height Entry Format : Terry Height, Feet : 5 ft(Converted to: 152 cm, 60 Inch) Height, Inches : 8.5 Inch(Converted to: 0 ft 9 Inch, 21.59 cm) Clinical Height : 173.99 cm Weight Source : Standing scale Weight Entry Format : Terry Clinical Dosing Weight : 101.82 kg Weight, Pounds : 224 lb Weight, Ounces : 0 oz Body Surface Area (BSA) : 2.16 m2 Body Mass Index : 33.6 kg/m2 (HI) Isabel Body Weight : 69 kg Xochilt Ba [...] 08/30/2018 18:47 EST Electronically signed by Am[facility] Conversion Private Branch Exchange Repairer Cerner at 10/27/2022 8:15 PM CDT documented in this encounter Plan of Treatment Not on file documented as of this encounter Visit Diagnoses Not on filedocumented in this encounter
--- OUTSIDE RECORDS SUMMARY | 2025-06-26 10:10 | XMS_ITS | Encounter Summary ---
Author Organization [employer] ([place], [place], [place], [place], [place]) Address [address] [place] [address] Care Team Providers Care Pilot Boat Operator Name Role Phone Unavailable Primary Care Provider Unavailabl e Encounter Details Date Type Department Care Team (Late st Contact Info) Description 08/30/2018 Transcribed Document [facility] [place] [address] [place] [address] ProviderTree MD [address] [place] [address] Social History Tobacco Use Types [...] Tree Alonso MD - 08/30/2018 12:44 PM JUNIOR HIGH SCHOOL TEACHER [facility] Main OR IntraOp Summary Primary Physician: BEATRIZ RAWLS MD-ORT Finalized Date/Time: 08/31/18 09:28:34 Pt. Name: PETRA VILLALBA RENETTA /Sex: 1955 Male Med Rec #: [id number] Physician: BEATRIZ RAWLS MD-ORT Financial #: [id number] Pt. Type: O Room/Bed: 648/1 Admit/Disch: 08/30/18 06:24:00 - Institution: [facility] IntraOp Case Attendance Entry 1 Entry 2 Entry 3 Case Attendee BEATRIZ RAWLS MD-ORT KESHEIMER, DAVID K, PA Summers, Jennifer, [place] Pref Card Builder Role Performed Surgeon/Proceduralist, Physician recreational assistant Scrub, First First Time In 08/30/18 [...] Entry 6 Case Attendee Tana Maynard, RN Gabreila Fabian, RN LARRY ADAIR, BUSINESS DEVELOPER Role Performed Line Fisher, First Line Fisher, Second BUSINESS DEVELOPER/Nurse Market Master Time In 08/30/18 12:12:00 08/30/18 12:12:00 08/30/18 [...] ANAHI ALAS MD OTHER, ATTENDEE Grady Tate, BUSINESS DEVELOPER Role Performed Anesthesiologist Vendor BUSINESS DEVELOPER/Nurse Market Master Time In 08/30/18 12:12:00 08/30/18 12:12:00 08/30/18 13:50:00 Time Out 08/30/18 14:50:00 08/30/18 14:50:00 08/30/18 14:50:00 Procedure Knee Total Joint Knee Total Joint Knee Total Joint Replacement(Right) Replacement(Right) Replacement(Right) Other Attendee tamar tan Superficial Wound Closed By: Last Modified By: Tana Maynard, RN Tana Maynard, RN Tana Maynard RN 08/30/18 14:50:09 08/30/18 11:46:42 08/30/18 14:50:09 [facility] IntraOp Case Attendance Audit 08/30/18 14:50:09 Load Tallier: HAMILTGM Modifier: HAMILTGM 1 <+> Time Out [...] Procedure Knee Total Joint Replacement(Right) 08/30/18 14:02:03 Load Tallier: HAMILTGM Modifier: HAMILTGM 1 <+> Time In [...] <+> 9 Time In <+> 9 Procedure [facility] IntraOp Case Times Entry 1 Patient In Room Time 08/30/18 12:12:00 Out Room Time 08/30/18 14:50:00 Anesthesia Start Time 08/30/18 12:12:00 Stop Time 08/30/18 14:50:00 Anesthesia Ready 08/30/18 12:12:00 Surgery / Procedure Times Start Time 08/30/18 12:44:00 Stop Time 08/30/18 14:36:00 Last Modified By: Tana Maynard RN 08/30/18 12:45:24 [facility] IntraOp Case Times Audit 08/30/18 14:50:07 Load Tallier: HAMILTGM Modifier: HAMILTGM <+> 1 Out Room Time <+> 1 Stop Time 08/30/18 14:36:41 Load Tallier: HAMILTGM Modifier: HAMILTGM <+> 1 Stop Time 08/30/18 12:45:28 Load Tallier: HAMILTGM Modifier: HAMILTGM 1 <*> Start Time 08/30/18 12:45:00 [facility] IntraOp Cautery Entry 1 ESU Identification Cautery Type Monopolar ESU ID Number [id number] ID Type Hospital Number Cautery Settings Cut Setting 50 Coag Setting 50 ESU Grounding Pad Ground Pad Type Adult Grounding Pad Site Right Flank Grounding Pad Tana Maynard RN Applied By Grounding Pad Site Warm, dry and intact Skin Condition Before Cautery Grounding Pad Site Unchanged Skin Condition After Cautery Last Modified By: Tana Maynard RN 08/30/18 11:47:37 [facility] IntraOp Communication Entry 1 Entry 2 Entry 3 Communication To Family/Significant other Other Family/Significant other Comment start report close Communication By Gabriela Fabian, Gabriela Ty RN Hamilton, Gina M, RN Date and Time 08/30/18 12:38:00 08/30/18 14:18:00 08/30/18 14:40:00 Last Modified By: Tana Maynard RN Hamilton, Gina M, RN Hamilton, Gina M, RN 08/30/18 12:46:33 08/30/18 14:18:15 08/30/18 14:50:38 [facility] IntraOp Communication Audit 08/30/18 14:50:38 Load Tallier: HAMILTGM Modifier: HAMILTGM <+> 3 Communication By <+> 3 Date and Time <+> 3 Communication To <+> 3 Comment 08/30/18 14:18:15 Load Tallier: HAMILTGM Modifier: HAMILTGM <+> 2 Communication By <+> 2 Date and Time <+> 2 Communication To <+> 2 Comment [facility] IntraOp Counts Verification Entry 1 Entry [...] Performed By Shaneka Oakley Summers, Jennifer, (Scrub) [place] Pref Card Builder [place] Pref Card Builder Count Performed By Tana Maynard RN Hull, Tamara, RN (RN) Last Modified By: Tana Maynard RN Hamilton, Gina M, RN 08/30/18 11:47:51 08/30/18 14:11:48 [facility] IntraOp Counts Verification Audit 08/30/18 14:11:48 Load Tallier: HAMILTGM Modifier: HAMILTGM <+> 2 Procedure <+> 2 Count Type <+> 2 Counts Verification Sequence <+> 2 Count Results <+> 2 Count Performed By (Scrub) <+> 2 Count Performed By (RN) [facility] IntraOp Counts Final Entry 1 Procedure Knee Total Joint Replacement(Right) Final Count Info Count Type Sponge, Sharps, Miscellaneous Counts Verification Skin Closure/end of Sequence procedure Count Results Correct, surgeon notified Counts Performed By Count Performed By Shaneka Oakley, (Scrub) [employer] Pref Card Builder Count Performed By Tana Maynard RN (RN) Last Modified By: Tana Maynard RN 08/30/18 11:47:59 [facility] IntraOp Counts Final Audit 08/30/18 14:18:03 Load Tallier: HAMILTGM Modifier: HAMILTGM 1 <*> Procedure Knee Total Joint Replacement(Right) 1 <+> Count Performed By (Scrub) 1 <+> Count Performed By (RN) [facility] IntraOp Cultures and Spec Summary Entry 1 Cultrures and Specimens Specimen Ordered: Yes Specimens Types Pathology Specimen(s) Labeled Pathology and Sent to Last Modified By: Tana Maynard RN 08/30/18 11:48:16 General Comments: a. right knee bone fragments and tissue [facility] IntraOp Departure from OR Entry 1 Integumentary Assessment Integumentary WDL Assessment WDL Transfer/Handoff Transfer to PACU Phase I Handoff Method Phone call Post-op Transport Stretcher/Gurney Via Patient Transport BEATRIZ PEACE PA, Accompanied by LARRY ADAIR CRNA Last Modified By: Tana Maynard RN 08/30/18 11:48:34 [facility] IntraOp Dressing and Packing Entry 1 Type Dressing Location opsite Wound Dressing Item Skin Closure Glue, Joe Supplemental Limb immobilizer Applications Applied By BEATRIZ RAWLS MD-ORT Other Comments aquacel. Last Modified By: Tana Maynard RN 08/30/18 11:49:15 [facility] IntraOp Fire Risk Assessment Entry 1 [...] Modified By: Tana Maynard RN 08/30/18 11:49:27 [facility] IntraOp General Case Optical Mechanic 1 Case Information OR OR 04 [facility] Case Level 1 Room Verified Yes Wound Class I - Clean Specialty SN Orthopedic Anesthesia Type General ASA Class 2 Diagnosis Preop Diagnosis oa - right knee Postop Same As Preop No Postop Diagnosis see doctor's post op notes Last Modified By: Tana Maynard RN 08/30/18 12:46:14 [facility] IntraOp General Case Data Audit 08/30/18 12:46:14 Load Tallier: JOCELIN Modifier: OLEGARIOILTGM <+> 1 ASA Class [facility] IntraOp Implant Log Entry 1 Entry 2 Entry 3 Type Implant (Synthetic) Implant (Synthetic) Implant (Synthetic) Implant Log Implant Type Bone Cement Hardware Hardware Tissue Implant Type Implant CEMENT BONE SURG SMPLX TIB CEMENTED STEM SZ F PATELLA RAY PERSONA Identification P [id number] Description Implant Quantity 2 1 1 Implant Site opsite opsite opsite Implant Identification Model Number Implant Identification Serial Number Implant [id number] Identification Lot Number Implant An:Winthrop Hernandez:Hernandez Us Hernandez:Hernandez Us Identification Orthopaedics Assembler Dc Field Yoke Name: Implant [id number] Identification Catalog Number Implant Size Implant Has an Yes Yes Yes Expiration Date Implant Expiration 11/08/20 03/11/28 09/09/23 Date Wasted Radioactive Material Time Implanted Tissue Implant Continue for Tissue Implant Documentation Tissue Identification Number Graft Prep Per Assembler Dc Field Yoke Instructions: Tissue Preparation Method: Reconstitution Solution: Reconstitution Solution Lot Number Reconstitution Solution Expiration Date: Thawing Solution Thawing Solution Lot Number Thawing Solution Expiration Date Preparation Materials, Other Preparation Materials, Other Lot Number Preparation Materials, Other Expiration Date Tissue Prepared/Processed By Assembler Dc Field Yoke Paperwork Completed Implant Type Comment Last Modified By: Tana Maynard RN Hamilton, Gina M, Tana Avila RN 08/30/18 11:50:26 08/30/18 13:50:14 08/30/18 13:50:14 Entry 4 Entry 5 Type Implant (Synthetic) Implant (Synthetic) Implant Log Implant Type Hardware Hardware Tissue Implant Type Implant IMP KNEE FEM PSN CR CMT PSN ART SURF MC 10 Identification [id number] Description Implant Quantity 1 1 Implant Site opsite opsite Implant Identification Model Number Implant Identification Serial Number Implant [id number] Identification Lot Number Implant Hernandez:Hernandez Us Hernandez:Hernandez Us Identification Assembler Dc Field Yoke Name: Implant [id number] Identification Catalog Number Implant Size Implant Has an Yes Yes Expiration Date Implant Expiration 10/10/27 04/10/23 Date Wasted Radioactive Material Time Implanted Tissue Implant Continue for Tissue Implant Documentation Tissue Identification Number Graft Prep Per Assembler Dc Field Yoke Instructions: Tissue Preparation Method: Reconstitution Solution: Reconstitution Solution Lot Number Reconstitution Solution Expiration Date: Thawing Solution Thawing Solution Lot Number Thawing Solution Expiration Date Preparation Materials, Other Preparation Materials, Other Lot Number Preparation Materials, Other Expiration Date Tissue Prepared/Processed By Assembler Dc Field Yoke Paperwork Completed Implant Type Comment Last Modified By: Tana Maynard RN Hamilton, Gina M, RN 08/30/18 13:50:14 08/30/18 14:04:53 [facility] IntraOp Implant Log Audit 08/30/18 14:04:53 Load Tallier: JOCELIN Modifier: BEVERLYTGM <+> 5 Implant Identification Description <+> 5 Implant Identification Lot Number <+> 5 Implant Identification Assembler Dc Field Yoke Name: <+> 5 Implant Expiration Date <+> 5 Implant Site <+> 5 Implant Quantity <+> 5 Implant Identification Catalog Number <+> 5 Implant Type <+> 5 Implant Has an Expiration Date <+> 5 Type 08/30/18 13:50:14 Load Tallier: JOCELIN Modifier: BEVERLYTGM <+> 2 Implant Identification Description <+> 2 Implant Identification Lot Number <+> 2 Implant Identification Assembler Dc Field Yoke Name: <+> 2 Implant Expiration Date <+> 2 Implant Site <+> 2 Implant Quantity <+> 2 Implant Identification Catalog Number <+> 2 Implant Type <+> 2 Implant Has an Expiration Date <+> 2 Type <+> 3 Implant Identification Description <+> 3 Implant Identification Lot Number <+> 3 Implant Identification Assembler Dc Field Yoke Name: <+> 3 Implant Expiration Date <+> 3 Implant Site <+> 3 Implant Quantity <+> 3 Implant Identification Catalog Number <+> 3 Implant Type <+> 3 Implant Has an Expiration Date <+> 3 Type <+> 4 Implant Identification Description <+> 4 Implant Identification Lot Number <+> 4 Implant Identification Assembler Dc Field Yoke Name: <+> 4 Implant Expiration Date <+> 4 Implant Site <+> 4 Implant Quantity <+> 4 Implant Identification Catalog Number <+> 4 Implant Type <+> 4 Implant Has an Expiration Date <+> 4 Type 08/30/18 13:42:36 Load Tallier: JOCELIN Modifier: BEVERLYTGLuis 1 <*> Implant Identification Description CEMENT BONE SURG SMPLX P [id number] <*> Implant Quantity 1 [facility] IntraOp Intraoperative Assessment Entry 1 Handoff [...] Modified By: Tana Maynard RN 08/30/18 11:50:42 [facility] IntraOp Intraoperative Equipment Entry 1 Type [...] Modified By: Tana Maynard RN 08/30/18 11:51:13 [facility] IntraOp Medication Admin Entry 1 Medication/Irrigant NORMAL SALINE Route of irrigation Administration Dose Dose 2000 Unit of Measure ml Volume 50ml betadine added Administered By BEATRIZ RAWLS MD-ORT Procedure Irrigation Last Modified By: Tana Maynard RN 08/30/18 11:51:46 [facility] IntraOp Patient Positioning Entry 1 Procedure [...] Modified By: Tana Maynard RN 08/30/18 11:53:17 [facility] IntraOp Sign In Entry 1 Patient, [...] Modified By: Tana Maynard RN 08/30/18 12:45:43 [facility] IntraOp Sign Out Entry 1 RN [...] Modified By: Tana Maynard RN 08/30/18 11:53:41 [facility] IntraOp Sign Out Audit 08/30/18 14:50:17 Load Tallier: HAMILTGM Modifier: HAMILTGM <+> 1 RN Sign Out Signature Date/Time [facility] IntraOp Skin Prep Entry 1 Procedure Knee Total Joint Replacement(Right) Prescribed N/A Pre-Surgical Prep Completed Prep Area right thigh to toes circumferentially Intraop Prep Integumentary WDL Assessment WDL Prep Agents Chloraprep Prep by Tana Maynard RN Hair Removal Methods No hair removal performed Last Modified By: Tana Maynard RN 08/30/18 11:54:06 [facility] IntraOp Surgical Procedures Entry 1 Procedure Knee Total Joint Replacement Modifiers Right Additional RT TOTAL KNEE Procedure ARTHROPLASTY Description Primary Procedure Yes Primary Surgeon BEATRIZ RAWLS MD-ORT Start 08/30/18 12:44:00 Stop 08/30/18 14:36:00 Anesthesia Type General Specialty SN Orthopedic Wound Class I - Clean Last Modified By: Tana Maynard RN 08/30/18 11:54:12 [facility] IntraOp Surgical Procedures Audit 08/30/18 14:36:43 Load Tallier: HAMILTGM Modifier: HAMILTGM <+> 1 Stop 08/30/18 12:46:05 Load Tallier: HAMILTGM Modifier: HAMILTGM <+> 1 Start [facility] IntraOp Temp Regulation Devices Entry 1 Temp Regulation Temperature Warm blankets Regulation Device Temperature Upper body Regulation Site Temperature LARRY ADAIR CRNA Regulation Device Applied by Temperature bairhugger available Regulation Comment Last Modified By: Tana Maynard RN 08/30/18 11:54:34 [facility] IntraOP Time Out Entry 1 Procedure [...] Modified By: Tana Maynard RN 08/30/18 12:45:54 [facility] IntraOP Time Out Audit 08/30/18 12:45:54 Load Tallier: JOCELIN Modifier: HAMILTGM 1 <+> Time Out Pause Time 1 <*> Procedure to be Performed Knee Total Joint Replacement(Right) [facility] IntraOp Tourniquet Entry 1 Type Pneumatic Serial/Unit Number [id number] Setting 350 mmHg Pheumatic Yes Tourniquet Checked Per Protocol Size 34 inches Placement Thigh, right upper Skin Protection - Yes Padded Under Cuff Applied By BEATRIZ RAWLS MD-ORT Removed By BEATRIZ PEACE PA Times Start Time 08/30/18 12:44:00 Stop Time 08/30/18 14:36:00 Total Time 111 calculated manually (Mins) Last Modified By: Tana Maynard RN 08/30/18 14:36:38 [facility] IntraOp Tourniquet Audit 08/30/18 14:36:38 Load Tallier: OLEGARIOILTGM Modifier: HAMILTGM 1 <*> Setting 300 mmHg 1 <+> Total Time calculated manually (Mins) 1 <+> Stop Time 08/30/18 12:46:04 Load Tallier: OLEGARIOILTGM Modifier: HAMILTGM <+> 1 Start Time [...]
--- OUTSIDE RECORDS SUMMARY | 2025-06-26 10:10 | XMS_ITS | Encounter Summary ---
Author Organization Healthcare Address [address] [place] [address] Care Team Providers Care Pockets And Pieces Necktie Operator Name Role Phone Handy Pennington MD Primary Care Provider + [phone] Parrish Thurman MD Primary Care Provider + [phone] Encounter Details Date Type Department Care Team (Late st Contact Info) Description 07/10/2024 Orders Only External Location [address] [place] [address] Provider, External Social History Tobacco Use Types [...] [facility] [address], [address] [place] [address] Afshan Bryan MD [address] [place] [address] documented as of this encounter [...] on filedocumented in this encounter Care Teams Pockets And Pieces Necktie Operator Relationship Specialty Start Date End Date Handy Pennington MD [address] [place] [address] PCP - General 11/22/20 10/18/24 Parrish Thurman MD [address] [place] [address] PCP - General 10/19/24 documented as of this encounter
[2025-06-26 10:11] LABS: Hematocrit 33.7 % (42.0-52.0); Hemoglobin 10.8 g/dL (14.1-18.0); Immature Granulocytes % 1.4 %; Mean Corpuscular HGB Conc 32.0 g/dL (31.8-35.4); Mean Corpuscular Hemoglobin 28.1 pg (27.0-31.2); Mean Corpuscular Volume 87.8 fl (80-94); Nucleated Red Blood Cells % 0 %; Platelet Count 145 K/mm3 (142-424); Red Blood Count 3.84 M/mm3 (4.60-6.20); Red Cell Distribution Width-SD 56.1 fL
--- OUTSIDE RECORDS SUMMARY | 2025-06-26 10:11 | XMS_ITS | Encounter Summary ---
Author Organization [employer] ([place], [place], [place], [place], [place]) Address [address] [place] [address] Care Team Providers Care Biostatistics Director Name Role Phone Unavailable Primary Care Provider Unavailabl e Encounter Details Date Type Department Care Team (Late st Contact Info) Description 08/31/2018 Transcribed Document [facility] [place] [address] [place] [address] ProviderTree MD [address] [place] [id number] Social History Tobacco Use Types Packs/Day Years [...] Tree Alonso MD - 08/31/2018 7:06 AM ASSEMBLER BONDING Patient: PETRA VILLALBA Age: 62 years Sex: Male : 1955 Associated Diagnoses: None Author: BEATRIZ RAWLS MD-ORT Alert, walked by himself yesterday as PT had gone home. Afeb VS stable distal nvs intact xrays good Hb 15.4 to 14.0 post op stable Plan: walk, dc home Lovenox, percocet 5 RTO 2 weeks Electronically signed by [facility] Conversion Armament Installer Cerner at 10/27/2022 8:14 PM CDT documented in this encounter Plan of Treatment Not on file documented as of this encounter Visit Diagnoses Not on filedocumented in this encounter
--- OUTSIDE RECORDS SUMMARY | 2025-06-26 10:11 | XMS_ITS | Encounter Summary ---
Author Organization [employer] ([place], [place], [place], [place], [place]) Address [address] [place] [address] Care Team Providers Care Tin Can Laborer Name Role Phone Unavailable Primary Care Provider Unavailabl e Encounter Details Date Type Department Care Team (Late st Contact Info) Description 08/31/2018 Transcribed Document [facility] [place] [address] [place] [address] ProviderTree MD [address] [place] [address] Social History Tobacco Use Types [...] - Tree ProviderMD - 08/31/2018 1:39 PM OFFAL ICER POULTRY Care Management Assessment/Plan Entered On: 08/31/2018 13:46 EST Performed On: 08/31/2018 13:39 EST by Christina Meyers RN Care Management Note Care Management Note : Pt had f/c placed for urinary retention and needs f/u appt with Uro in 5 days. Called [facility] ([phone]) to schedule appt, but MD needs referral and clinicals faxed and then they will call pt with appt. Faxed everything needed and informed pt and spouse. Pt will dc home on Lovenox for DVT prophylaxis. Faxed script for Lovenox to [facility] in [place], they have enough in stock and pt's co-pay is $10. Pt and spouse agree to pay this. Care Management Note Report : Christina Meyers RN - 08/31/18 11:28:36 [id number] Documentation Status Complete : Yes Christina Meyers RN - 08/31/2018 13:39 EST documented in this encounter Plan of Treatment Not on file documented as of this encounter Visit Diagnoses Not on filedocumented in this encounter
--- OUTSIDE RECORDS SUMMARY | 2025-06-26 10:11 | XMS_ITS | Encounter Summary ---
Author Organization [employer] ([place], [place], [place], [place]) Address [address] [place] [address] Care Team Providers Care Hemstitching Machine Operator Name Role Phone Unavailable Primary Care Provider Unavailabl e Encounter Details Date Type Department Care Team (Late st Contact Info) Description 08/31/2018 Transcribed Document [facility] [place] [address] [place] [address] ProviderTree MD [address] [id number] Social History Tobacco Use Types Packs/Day Years [...] Tree Alonso MD - 08/31/2018 7:20 AM WOMEN'S STUDIES PROFESSOR Patient: PETRA VILLALBA Age: 62 years Sex: [...]
--- OUTSIDE RECORDS SUMMARY | 2025-06-26 10:11 | XMS_ITS | Encounter Summary ---
Author Organization [employer] ([place], [place], [place], [place], [place]) Address [address] [place] [address] Care Team Providers Care Adolescent Psychiatrist Name Role Phone Unavailable Primary Care Provider Unavailabl e Encounter Details Date Type Department Care Team (Late st Contact Info) Description 08/31/2018 Transcribed Document [facility] [place] [facility] [place] [address] ProviderTree MD [facility] [place] [address] Social History Tobacco Use Types [...] Tree Alonso MD - 08/31/2018 10:44 AM BAKING ASSISTANT Discharge Instructions Entered On: 08/31/2018 10:46 EST Performed On: 08/31/2018 10:44 EST by Xochilt Ba RN DC Instructions [facility] Equipment For Home Use : [employer]--[phone] Home Health Services : [facility]--[phone] Christina Meyers RN - 08/31/2018 11:25 EST [...] 08/31/2018 10:44 EST Electronically signed by Amira, [facility] Conversion Registered Veterinary Technician Cerner at 10/27/2022 8:16 PM CDT documented in this encounter Plan of Treatment Not on file documented as of this encounter Visit Diagnoses Not on filedocumented in this encounter
--- OUTSIDE RECORDS SUMMARY | 2025-06-26 10:11 | XMS_ITS | Encounter Summary ---
Author Organization [address] ([place], [place], [place], [place], [place]) Address [address] [place] [address] Care Team Providers Care Last Sorter Name Role Phone Unavailable Primary Care Provider Unavailabl e Encounter Details Date Type Department Care Team (Late st Contact Info) Description 08/31/2018 Transcribed Document [facility] Family Medicine [facility] [place] [address] ProviderTree MD [address] [place] [id number] Social History Tobacco Use Types Packs/Day [...] Tree Alonso MD - 08/31/2018 7:23 AM OWNER/OPERATOR [address] [place] [address] Patient Copy Patient Information: Name: PETRA VILLALBA Current Date: 08/31/2018 07:23:32 : 1955 Patient Address: [address] [place] [id number] Patient Attending Physician: BEATRIZ RAWLS MD-ORT Primary Care Provider: BILL VENTURA MD-KATHLEEN Primary Care Provider Discharge Diagnosis: Weight on Admission: 224 lb, 0 oz Comment: Follow-up Instructions: With: Address: When: BEATRIZ RAWLS [address] [place], [place] [address], [place] [address] [facility] (1) 11:00 AM Discharge Instructions: Immunizations Documented [...] nasal (fluticasone 50 mcg/inh nasal spray) 1 Appling(s) Nostrils Both Every Day. fluticasone/umeclidinium/vilanterol (Trelegy Ellipta) [...] Assistance with quitting is available by contacting 3-145-OOWG-NOW. This is a free resource providing counseling, [...] Be sure to sign up for the My [employer] Interest patient portal, which gives you 01/02 access to your medical information ??? including these discharge instructions ??? using your computer, smartphone, or tablet. Just go to [employer] to get started. Questions? Call . [facility] would like to thank you for allowing us to assist you with your healthcare needs. DEEJAY Pacheco BILL RAY, (or guest experience representative) have received the above patient education materials/instructions and have verbalized understanding: Patient Signature _ Date/Time Patient Breakfast Bar Attendant Signature (if needed) Date/Time Clinician/Hospital Breakfast Bar Attendant Signature (if needed) Date/Time documented in this encounter Plan of Treatment Not on file documented as of this encounter Visit Diagnoses Not on filedocumented in this encounter
--- OUTSIDE RECORDS SUMMARY | 2025-06-26 10:11 | XMS_ITS | Encounter Summary ---
Author Organization [employer] ([place], [place], [place], [place], [place]) Address [address] [place] [address] Care Team Providers Care Ornament Stapler Name Role Phone Unavailable Primary Care Provider Unavailabl e Encounter Details Date Type Department Care Team (Late st Contact Info) Description 08/31/2018 Transcribed Document [facility] Family Medicine [facility] [place] [address] ProviderTree MD [address] [place], [place] [id number] Social History Tobacco Use Types Packs/Day Years [...] - Tree ProviderMD - 08/31/2018 4:06 PM IT APPLICATION ADMINISTRATOR Discharge Summary, PT Entered On: 08/31/2018 16:07 [...] CARLOS CASTILLO, PT - 08/31/2018 16:06 EST Penitentiary Goals Mobility/Bed Mobility LTG PT Grid Goal [...] - 08/31/2018 16:06 EST Electronically signed by Adalid Collier Conversion Software Engineering Analyst Cerner at 10/27/2022 8:11 PM CDT documented in this encounter Plan of Treatment Not on file documented as of this encounter Visit Diagnoses Not on filedocumented in this encounter
--- OUTSIDE RECORDS SUMMARY | 2025-06-26 10:11 | XMS_ITS | Data Portability ---
Author Organization [place] - [place]NIS AyalaS [facility] CLOSED Address [address] [facility] [place] [address] Care Team Providers Care Outpatient Physical Therapist Assistant Name Role Phone FUNMI BIRD Primary Care Provider Assessment No assessment recorded. Plan of Treatment Reminders Order Date Submit Date Provider Last Modified By Organization Details Last Modified Time Details Appointments RECHECK 2025 03:15P Luis PATEL MD Not available Not available Not available Lab urinalysi s panel, auto 2023 024 [facility] Extended Services With [facility], [address], [place], [address], 05/21/2024 16:08:40 urinalysi s panel, auto 2023 024 [facility] Extended Services With [facility], [address], [address], [place], [address], 11/22/2023 07:15:30 PSA, total + free, serum or plasma [address] (Lab), [address] [place] [address] [address], [place], [address], 09/10/2022 08:13:18 urinalysi s panel, auto 2021 022 [facility] Extended Services With [facility], [address], [address], [place], [address], 02/11/2022 18:57:55 urinalysi s panel, auto 2021 [email or web address], [address], [address], [place], [address], 07/28/2021 14:17:42 Referral None recorded. Procedures None recorded. Surgeries None recorded. Imaging None recorded. Medication Orders None recorded. Patient TargetsNo targets recorded. Patient Instructions Encounter Date Encounter Id Patient Instructions Last Modified By Organization Details Last Modified Time 07/28/2021 [id number] continue to foll ow PSA conservatively. His hematospermia should continue to improve [email or web address] Not available 07/28/2021 14:17:52 02/02/2022 [id number] healthy together [email or web address] Not availabl e 02/11/2022 18:57:55 a we'll call the patient with PSA results and further recommendations tslabaugh Not available 02/11/2022 18:57:36 05/15/2024 [id number] learning about healthy weight tslabaugh Not available 05/21/2024 16:08:40 Reason for Referral None Reported. Results Created Date Observation Date Name Description Value Unit Range Abnormal Flag Note LastModifiedBy Organization Detail LastModifiedTime 07/28/1907/28/2021 urina lysis panel , auto Unknown Analyte Clean Catch Not Available [facility] Extended Services With [facility] [address], [place], [address], 07/28/2021 13:34:23 07/28/19 22 07/28/2021 urina lysis panel , auto Unknown Analyte Yellow Not Available [facility] Extended Services With [facility] [address], [place], [address], 07/28/2021 13:34:23 07/28/19 22 07/28/2021 urina lysis panel , auto Unknown Analyte Clear Not Available [facility] [place] Extended Services With [place] [address], [place], [address], 07/28/2021 13:34:23 07/28/19 22 07/28/2021 urina lysis panel , auto Unknown Analyte 1.015 Not Available [facility] Extended Services With [place] [address], [place], [address], 07/28/2021 13:34:23 07/28/19 22 07/28/2021 urina lysis panel , auto Unknown Analyte 1.003- 1.035 Not Available [facility] Extended Services With [place] [address], [place], [address], 07/28/2021 13:34:23 07/28/19 22 07/28/2021 urina lysis panel , auto Unknown Analyte 5.0 Not Available [facility] Extended Services With [place] [address], [place], [address], 07/28/2021 13:34:23 07/28/19 22 07/28/2021 urina lysis panel , auto Unknown Analyte 5.0-8. 0 Not Available [facility] [place] [facility] With [place] [address], [place], [address], 07/28/2021 13:34:23 07/28/19 22 07/28/2021 urina lysis panel , auto Unknown Analyte Negati ve Not Available [facility] [place] [facility] Services With [facility] [address], [place], [address], 07/28/2021 13:34:23 07/28/19 22 07/28/2021 urina lysis panel , auto Unknown Analyte Negati ve Not Available [facility] [place] Extended Services With [facility] [address], [place], [address], 07/28/2021 13:34:23 07/28/19 22 07/28/2021 urina lysis panel , auto Unknown Analyte Negati ve Not Available [facility] [place] Extended Services With [facility] [address], [place], [address], 07/28/2021 13:34:23 07/28/19 22 07/28/2021 urina lysis panel , auto Unknown Analyte Negati ve Not Available [facility] Extended Services With [facility] [address], [place], [address], 07/28/2021 13:34:23 07/28/19 22 07/28/2021 urina lysis panel , auto Unknown Analyte Negati ve Not Available [facility] Extended Services [facility] [address], [place], [address], 07/28/2021 13:34:23 07/28/19 22 07/28/2021 urina lysis panel , auto Unknown Analyte Negati ve Not Available [facility] [place] [facility] [address], [place], [address], 07/28/2021 13:34:23 07/28/19 22 07/28/2021 urina lysis panel , auto Unknown Analyte Normal Not Available [facility] Extended Services With [facility] [address], [place], [address], 07/28/2021 13:34:23 07/28/19 22 07/28/2021 urina lysis panel , auto Unknown Analyte Normal Not Available [facility] [place] Extended Services With [facility] [address], [place], [address], 07/28/2021 13:34:23 07/28/19 22 07/28/2021 urina lysis panel , auto Unknown Analyte Negati ve Not Available [facility] Extended Services With [facility] [address], [place], [address], 07/28/2021 13:34:23 07/28/19 22 07/28/2021 urina lysis panel , auto Unknown Analyte Negati ve Not Available [facility] Extended Services [facility] [address], [place], [address], 07/28/2021 13:34:23 07/28/19 22 07/28/2021 urina lysis panel , auto Unknown Analyte Normal Not Available [facility] Extended Services With [facility] [address], [place], [address], 07/28/2021 13:34:23 07/28/19 22 07/28/2021 urina lysis panel , auto Unknown Analyte Normal 1 mg/dl Not Available [facility] Extended Services [facility] [address], [place], [address], 07/28/2021 13:34:23 07/28/19 22 07/28/2021 urina lysis panel , auto Unknown Analyte Negati ve Not Available [facility] Extended Services [facility] [address], [place], [address], 07/28/2021 13:34:23 07/28/19 22 07/28/2021 urina lysis panel , auto Unknown Analyte Negati ve Not Available [facility] [place] Extended [facility] With [place] [address], [place], [address], 07/28/2021 13:34:23 07/28/19 22 07/28/2021 urina lysis panel , auto Unknown Analyte Negati ve Not Available [facility] [place] Extended Services With [place] [address], [place], [address], 07/28/2021 13:34:23 07/28/19 22 07/28/2021 urina lysis panel , auto Unknown Analyte Negati ve Not Available [facility] [place] Extended Services With [place] [address], [place], [address], 07/28/2021 13:34:23 02/03/20 22 02/02/2022 urina lysis panel , auto Unknown Analyte Clean Catch Not Available [facility] [place] Extended Services With [place] [address], [place], [address], 02/02/2022 15:01:27 02/03/20 22 02/02/2022 urina lysis panel , auto Unknown Analyte Yellow Not Available [facility] Extended Services With [address], [place], [address], 02/02/2022 15:01:27 02/03/20 22 02/02/2022 urina lysis panel , auto Unknown Analyte Clear Not Available [facility] [place] Extended Services With [place] [address], [place], [address], 02/02/2022 15:01:27 02/03/20 22 02/02/2022 urina lysis panel , auto Unknown Analyte 1.015 Not Available [facility] [place] Extended Services With [address], [place], [address], 02/02/2022 15:01:27 02/03/20 22 02/02/2022 urina lysis panel , auto Unknown Analyte 1.003- 1.035 Not Available [facility] With [address], [place], [address], 02/02/2022 15:01:27 02/03/20 22 02/02/2022 urina lysis panel , auto Unknown Analyte 5.0 Not Available [facility] Extended Services With [address], [place], [address], 02/02/2022 15:01:27 02/03/20 22 02/02/2022 urina lysis panel , auto Unknown Analyte 5.0-8. 0 Not Available [facility] Extended Services With [address], [place], [address], 02/02/2022 15:01:27 02/03/20 22 02/02/2022 urina lysis panel , auto Unknown Analyte Negati ve Not Available [facility] Extended Services With [address], [place], [address], 02/02/2022 15:01:27 02/03/20 22 02/02/2022 urina lysis panel , auto Unknown Analyte Negati ve Not Available [facility] [place] Extended Services With [address], [place], [address], 02/02/2022 15:01:27 02/03/20 22 02/02/2022 urina lysis panel , auto Unknown Analyte Negati ve Not Available [facility] [place] Extended Services With [place] [address], [place], [address], 02/02/2022 15:01:27 02/03/20 22 02/02/2022 urina lysis panel , auto Unknown Analyte Negati ve Not Available [facility] [place] Extended Services With [place] [address], [place], [address], 02/02/2022 15:01:27 02/03/20 22 02/02/2022 urina lysis panel , auto Unknown Analyte Negati ve Not Available [facility] [place] Extended Services With [place] [address], [place], [address], 02/02/2022 15:01:27 02/03/20 22 02/02/2022 urina lysis panel , auto Unknown Analyte Negati ve Not Available [facility] [place] Extended [facility] With [place] [address], [place], [address], 02/02/2022 15:01:27 02/03/20 22 02/02/2022 urina lysis panel , auto Unknown Analyte Normal Not Available [facility] Extended Services With [place] [address], [place], [address], 02/02/2022 15:01:27 02/03/20 22 02/02/2022 urina lysis panel , auto Unknown Analyte Normal Not Available [facility] [place] Extended Services With [place] [address], [place], [address], 02/02/2022 15:01:27 02/03/20 22 02/02/2022 urina lysis panel , auto Unknown Analyte Negati ve Not Available [facility] [place] Extended Services With [place] [address], [place], [address], 02/02/2022 15:01:27 02/03/20 22 02/02/2022 urina lysis panel , auto Unknown Analyte Negati ve Not Available [facility] [place] Extended Services With [place] [address], [place], [address], 02/02/2022 15:01:27 02/03/20 22 02/02/2022 urina lysis panel , auto Unknown Analyte Normal Not Available [facility] Extended Services With [place] [address], [place], [address], 02/02/2022 15:01:27 02/03/20 22 02/02/2022 urina lysis panel , auto Unknown Analyte Normal 1 mg/dl Not Available [facility] Extended Services With [place] [address], [place], [address], 02/02/2022 15:01:27 02/03/20 22 02/02/2022 urina lysis panel , auto Unknown Analyte Negati ve Not Available [facility] Extended Services With [place] [address], [place], [address], 02/02/2022 15:01:27 02/03/20 22 02/02/2022 urina lysis panel , auto Unknown Analyte Negati ve Not Available [facility] Extended Services With [place] [address], [place], [address], 02/02/2022 15:01:27 02/03/20 22 02/02/2022 urina lysis panel , auto Unknown Analyte Negati ve Not Available [facility] With [place] [address], [place], [address], 02/02/2022 15:01:27 02/03/20 22 02/02/2022 urina lysis panel , auto Unknown Analyte Negati ve Not Available [facility] [place] Extended Services With [place] [address], [place], [address], 02/02/2022 15:01:27 11/15/19 24 11/15/2023 urina lysis panel , auto Unknown Analyte Clean Catch Not Available [facility] [place] Extended Services With [address], [place], [address], 11/15/2023 15:46:18 11/15/19 24 11/15/2023 urina lysis panel , auto Unknown Analyte Yellow Not Available [facility] Extended Services With [address], [place], [address], 11/15/2023 15:46:18 11/15/19 24 11/15/2023 urina lysis panel , auto Unknown Analyte Clear Not Available [facility] Extended Services With [place] [address], [place], [address], 11/15/2023 15:46:18 11/15/19 24 11/15/2023 urina lysis panel , auto Unknown Analyte 1.010 Not Available [facility] Extended Services With [address], [place], [address], 11/15/2023 15:46:18 11/15/19 24 11/15/2023 urina lysis panel , auto Unknown Analyte 1.003- 1.035 Not Available [facility] Extended Services With [address], [place], [address], 11/15/2023 15:46:18 11/15/19 24 11/15/2023 urina lysis panel , auto Unknown Analyte 6.0 Not Available [facility] [place] Extended Services With [place] [address], [place], [address], 11/15/2023 15:46:18 11/15/19 24 11/15/2023 urina lysis panel , auto Unknown Analyte 5.0-8. 0 Not Available [facility] [place] Extended Services With [place] [address], [place], [address], 11/15/2023 15:46:18 11/15/19 24 11/15/2023 urina lysis panel , auto Unknown Analyte Negati ve Not Available [facility] With [place] [address], [place], [address], 11/15/2023 15:46:18 11/15/19 24 11/15/2023 urina lysis panel , auto Unknown Analyte Negati ve Not Available [facility] [place] Extended Services With [place] [address], [place], [address], 11/15/2023 15:46:18 11/15/19 24 11/15/2023 urina lysis panel , auto Unknown Analyte Negati ve Not Available [facility] [place] Extended Services With [place] [address], [place], [address], 11/15/2023 15:46:18 11/15/19 24 11/15/2023 urina lysis panel , auto Unknown Analyte Negati ve Not Available [facility] [place] Extended Services With [address], [place], [address], 11/15/2023 15:46:18 11/15/19 24 11/15/2023 urina lysis panel , auto Unknown Analyte Negati ve Not Available [facility] [place] Extended Services With [facility] [address], [place], [address], 11/15/2023 15:46:18 11/15/19 24 11/15/2023 urina lysis panel , auto Unknown Analyte Negati ve Not Available [facility] [place] Extended [facility] [address], [place], [address], 11/15/2023 15:46:18 11/15/19 24 11/15/2023 urina lysis panel , auto Unknown Analyte Normal Not Available [facility] Extended Services With [place] [address], [place], [address], 11/15/2023 15:46:18 11/15/19 24 11/15/2023 urina lysis panel , auto Unknown Analyte Normal Not Available [facility] Extended Services [facility] [address], [place], [address], 11/15/2023 15:46:18 11/15/19 24 11/15/2023 urina lysis panel , auto Unknown Analyte Negati ve Not Available [facility] [place] Extended [facility] [address], [place], [address], 11/15/2023 15:46:18 11/15/19 24 11/15/2023 urina lysis panel , auto Unknown Analyte Negati ve Not Available [facility] [place] Extended Services With [facility] [address], [place], [address], 11/15/2023 15:46:18 11/15/19 24 11/15/2023 urina lysis panel , auto Unknown Analyte 4 mg/dl Not Available [facility] [place] Extended Services With [place] [address], [place], [address], 11/15/2023 15:46:18 11/15/19 24 11/15/2023 urina lysis panel , auto Unknown Analyte Normal 1 mg/dl Not Available [facility] [place] Extended Services With [place] [address], [place], [address], 11/15/2023 15:46:18 11/15/19 24 11/15/2023 urina lysis panel , auto Unknown Analyte Negati ve Not Available [facility] [place] Extended Services With [address], [place], [address], 11/15/2023 15:46:18 11/15/19 24 11/15/2023 urina lysis panel , auto Unknown Analyte Negati ve Not Available [facility] [place] Extended Services With [place] [address], [place], [address], 11/15/2023 15:46:18 11/15/19 24 11/15/2023 urina lysis panel , auto Unknown Analyte 50 Carroll/ul Not Available [facility] [place] Extended Services With [place] [address], [place], [address], 11/15/2023 15:46:18 11/15/19 24 11/15/2023 urina lysis panel , auto Unknown Analyte Negati ve Not Available [facility] [place] Extended Services With [place] [address] [facility] [address], [place], [address], 11/15/2023 15:46:18 05/15/2005/15/2024 urina lysis panel , auto Unknown Analyte Clean Catch Not Available [facility] [place] Extended Services With [place] [address], [place], [address], 05/15/2024 14:31:19 05/15/20 24 05/15/2024 urina lysis panel , auto Unknown Analyte Yellow Not Available [facility] With [place] [address], [place], [address], 05/15/2024 14:31:19 05/15/2005/15/2024 urina lysis panel , auto Unknown Analyte Clear Not Available [facility] Extended Services With [address], [place], [address], 05/15/2024 14:31:19 05/15/2005/15/2024 urina lysis panel , auto Unknown Analyte 1.015 Not Available [facility] Extended Services With [place] [address], [place], [address], 05/15/2024 14:31:19 05/15/20 24 05/15/2024 urina lysis panel , auto Unknown Analyte 1.003- 1.035 Not Available [facility] [place] Extended Services With [place] [address], [place], [address], 05/15/2024 14:31:19 05/15/20 24 05/15/2024 urina lysis panel , auto Unknown Analyte 5.0 Not Available [facility] Extended Services With [place] [address], [place], [address], 05/15/2024 14:31:19 05/15/20 24 05/15/2024 urina lysis panel , auto Unknown Analyte 5.0-8. 0 Not Available [facility] [place] Extended Services With [place] [address], [place], [address], 05/15/2024 14:31:19 05/15/20 24 05/15/2024 urina lysis panel , auto Unknown Analyte 25 Glory/ul Trace Not Available [facility] [place] Extended Services With [place] [address], [place], [address], 05/15/2024 14:31:19 05/15/2005/15/2024 urina lysis panel , auto Unknown Analyte Negati ve Not Available [facility] [place] Extended Services With [address], [place], [address], 05/15/2024 14:31:19 05/15/2005/15/2024 urina lysis panel , auto Unknown Analyte Negati ve Not Available [facility] [place] Extended Services With [place] [address] [facility] [address], [place], [address], 05/15/2024 14:31:19 05/15/20 24 05/15/2024 urina lysis panel , auto Unknown Analyte Negati ve Not Available [facility] [place] Extended Services With [address], [place], [address], 05/15/2024 14:31:19 05/15/2005/15/2024 urina lysis panel , auto Unknown Analyte 30 mg/dl (+) Not Available [facility] [place] Extended Services With [address], [place], [address], 05/15/2024 14:31:19 05/15/20 24 05/15/2024 urina lysis panel , auto Unknown Analyte Negati ve Not Available [facility] [place] Extended Services With [place] [address], [place], [address], 05/15/2024 14:31:19 05/15/20 24 05/15/2024 urina lysis panel , auto Unknown Analyte Normal Not Available [facility] Extended Services With [place] [address], [place], [address], 05/15/2024 14:31:19 05/15/20 24 05/15/2024 urina lysis panel , auto Unknown Analyte Normal Not Available [facility] Extended Services With [place] [address], [place], [address], 05/15/2024 14:31:19 05/15/20 24 05/15/2024 urina lysis panel , auto Unknown Analyte Negati ve Not Available [facility] Extended Services With [place] [address], [place], [address], 05/15/2024 14:31:19 05/15/20 24 05/15/2024 urina lysis panel , auto Unknown Analyte Negati ve Not Available [facility] Extended Services With [place] [address], [place], [address], 05/15/2024 14:31:19 05/15/20 24 05/15/2024 urina lysis panel , auto Unknown Analyte 1 mg/dl Not Available [facility] Extended Services With [facility] [address], [place], [address], 05/15/2024 14:31:19 05/15/20 24 05/15/2024 urina lysis panel , auto Unknown Analyte Normal 1 mg/dl Not Available [facility] [place] Extended Services With [facility] [address] [facility] [address] [facility], [place], [address], 05/15/2024 14:31:19 05/15/20 24 05/15/2024 urina lysis panel , auto Unknown Analyte Negati ve Not Available [facility] [place] Extended Services With [facility] [address] [facility] [address], [place], [address], 05/15/2024 14:31:19 05/15/2005/15/2024 urina lysis panel , auto Unknown Analyte Negati ve Not Available [facility] Extended Services With [facility] [address] [facility] [address] [facility], [place], [address], 05/15/2024 14:31:19 05/15/20 24 05/15/2024 urina lysis panel , auto Unknown Analyte Negati ve Not Available [facility] [place] Extended [facility] With [facility] [address] [facility] [address] [facility], [place], [address], 05/15/2024 14:31:19 05/15/20 24 05/15/2024 urina lysis panel , auto Unknown Analyte Negati ve Not Available [facility] [place] [facility] [facility] [address] [facility] [address] [facility], [place], [address], 05/15/2024 14:31:19 Result Notes None recorded. Problems No Known Problems Procedures Surgical History Date Name Laterality Status Provider Name and Address Organization Details Recorded Time 01/26/20 20 Aspiration Joint/BursaOrlando completed BEATRIZ RAWLS MD [address] [place], [address], [facility] 01/26/2020 10:04:07 12/20/19 Aspiration Joint/BursaOrlando completed BEATRIZ RAWLS MD [address] [place], [address], [facility] 12/20/2019 10:52:55 08/30/19 19 TOTAL KNEE ARTHROPLASTY (SURG) completed Tootie Tavares [facility] 09/12/2018 11:39:06 02/05/20 18 Injection - Joint/Bursa, Major completed BEATRIZ RAWLS MD [address] [place] [address], [phone], [facility] 02/04/2018 08:30:25 10/28/19 18 Injection - Joint/Burs[place], [place] [address] [place] [address], [phone], [facility] 10/27/2017 08:52:40 09/11/19 18 Injection - Joint/Bursa, Major completed BEATRIZ RAWLS MD [address] [place] [address], [phone], [facility] 09/10/2017 12:04:55 Imaging Results None recorded. Procedure Notes None recorded. Medical Equipment None Reported. Allergies Allergen ID Allergen Name Allergen Category Reaction Reaction Severity Criticality Documentation Date Start Date Code Code System Note Provider Name and Address Organization Details Recorded Time 863076 doxycycli ne Not available hives Not available Not available 02/03/2021 3640 [facility] 14:54:58 610882 POLL[employer] environme nt,medica tion cough Not available low 05/25/20252024 80815 6 RxNorm Gras s and trees envir onmen t Not Available francesco - External Data Service - prod 5 08:32:43 195463 rosuvasta tin medicatio n Not available Not available Not available 05/25/2025 82859 2 RxNorm Not Available [employer] External Data Service - prod 08:32:56 Medications [...] Updated DateTime 07/28/2021 175.26 cm 34 kg/m2 474198.25 g [facility] 07/28/2021 13:33:24 Date Recorded Body height Body mass index (BMI) Body weight Provider Name and Address Organization Details Last Updated DateTime 08/03/2022 175.26 cm 34 kg/m2 315473.25 g [facility] 08/03/2022 14:43:36 Date Recorded Body height Body mass index (BMI) Body weight Provider Name and Address Organization Details Last Updated DateTime 11/15/2023 175.26 cm 36.9 kg/m2 939832.09 g Erika Springert [facility] 11/15/2023 15:45:04 Date Recorded Body height Body mass index (BMI) Body weight Provider Name and Address Organization Details Last Updated DateTime 02/02/2022 175.26 cm 34 kg/m2 417599.25 g Kandace White [facility] 02/02/2022 15:00:55 Date Recorded Body height Body mass index (BMI) Body weight Provider Name and Address Organization Details Last Updated DateTime 05/15/2024 175.26 cm 37.4 kg/m2 359363.87 g Erika Obie [facility] 05/15/2024 14:26:17 Social History Question Answer Notes LastModified by Organizat ion Details LastModified Time Tobacco Smoking Status Former Smoker quit 26 years ago [facility] 09/10/2017 10:42:19 Accident Related Injury Yes Information not available 09/10/2017 What Is Your Level Of Caffeine Consumption? Moderate Coffee, Mountain Dew Daily [email or web address] Information not available 09/10/2017 How Much Tobacco Do You Chew? None [email or web address] Information not available 08/01/2018 Which Of Your Hands Is Dominant? Right [email or web address] Information not available 09/10/2017 Rate The Severity Of Your Symptoms: (0-10 With 0=none And 10=worst Possible) 10 4-10/10 [email or web address] Information not available 05/06/2020 Date Of Injury: 04/22/2017 Information not available 10/27/2017 Have You Been Treated For This Problem Before? Yes Dr. Quijano [email or web address] Information not available 09/10/2017 How Long Have You Had These Symptoms? 04/22/2017 [email or web address] Information not available 01/26/2020 Will This Be Filed As Workers' Compensation? No [email or web address] Information not available 08/01/2018 Marital Status [email or web address] Informatio n not available 08/01/2018 What Was The Date Of Your Most Recent Tobacco Screening? 05/15/2024 [email or web address] Information not available 05/15/2024 How Much Tobacco Do You Smoke? No [email or web address] Information not available 03/06/2019 Has Tobacco Cessation Counseling Been Provided? No Information not available 06/06/2018 How Many Years Have You Smoked Tobacco? 15 [email or web address] Information not available 09/10/2017 Work Related Injury? Yes [email or web address] Information not available 09/10/2017 Sex: Unknown Functional Status Question Answer Note LastModified by Organizat ion Details LastModified Time Do you use any illicit or recreational drugs? No [email or web address] Information not available 06/06/2018 What is your level of alcohol consumption? Occasional [email or web address] Information not available 09/10/2017 Do you or have you ever used smokeless tobacco? Never used smokeless tobacco [email or web address] Information not available 03/06/2019 Are you currently employed? 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 Never used electronic cigarettes [email or web address] Information not available 03/06/2019 Mental Status None recorded. Family History Nothing Reported. Medical History Condition Response Gout N Other N Anxiety/Depression N Thyroid Disease N Kidney Stones N Hernia N COPD N Glaucoma N Pneumonia N Anesthesia Complications N Arthritis Y Blood Clot N Cancer N Stroke N Blood Thinners N Alcohol Overuse/Alcohol Abuse N High Cholesterol Y Liver Disease N Kidney Disease N Allergies/Hayfever Y Heart Conditions N Migraines N Skin Problems N Immune System Disorder N Heart Attack (MT) N Mental Illness N Neurological Problems N Diabetes N Rheumatic Fever N Bleeding Disorder N Seizures/Epilepsy N Tuberculosis N Genetic Disorder N AIDS/HIV N Asthma Y Sleep Apnea N Included as Review of Systems Y Hypertension Y Osteoporosis N Past Encounters Encounter ID Performer Location Encounter Start Date Encounter Closed Date Diagnosis/Indication Diagnosis SNOMED-CT Code Diagnosis ICD10 Code Diagnosis IMO Codes Diagnosis Note [id number] BEATRIZ QUIJANO MD [facility] [address] [place] [address] 08/18/2017 13:32:33 08/18/2017 16:11:15 Pain in right knee 6460620719 50888 M25.561 Mr Brown has an osteochond ral injury to the medial femoral condyle. I recommend continued activity modificati on with restrictio n of extended weight bearing. I discussed treatment options to include corticoste roid injection, nsaids, and possible unicompart ment arthroplas ty right knee. [id number] BEATRIZ RAWLS MD [facility] [address] [place] [address] 09/10/2017 09:49:09 09/10/2017 12:25:15 Closed osteochondral fracture of distal femur 820665459 S72.434A [id number] BEATRIZ RAWLS MD [facility] [address] [place] [address] 10/13/2017 08:47:52 10/13/2017 09:45:32 Closed osteochondral fracture of distal femur 401459321 S72.434A Osteonecrosis 286543792 M87.568 [id number] BEATRIZ RAWLS MD [facility] [address] [place] [address] 10/27/2017 07:45:53 10/27/2017 08:53:59 Closed osteochondral fracture of distal femur 243530805 S72.434A Osteonecrosis 977396511 M87.676 [id number] BEATRIZ RAWLS MD [facility] [address] [place] [address] 02/04/2018 07:58:08 02/04/2018 08:53:29 Osteoarthritis of knee 465770414 M17.11 Idiopathic aseptic necrosis of bone 719298638 M87.969 [id number] BEATRIZ RAWLS MD [facility] [address] [place] [address] 06/06/2018 08:50:20 06/06/2018 10:31:24 Osteoarthritis of knee 691670554 M17.11 [id number] BEATRIZ RAWLS MD [facility] [address] [place] [address] 08/01/2018 15:21:27 08/01/2018 17:27:09 Aseptic necrosis of bone 529534629 M90.159 [id number] MONALISA PATEL JR, MD JUSTIN [facility] [address],[facility] [address] [place] [address] 09/05/2018 14:58:57 09/05/2018 15:26:49 Retention of urine 471483974 R33.9 Benign pro static hyperplasia with outflow obstruction 011986079 N40.1 Prostate s pecific antigen above reference range 421410844 R97.20 [id number] BEATRIZ RAWLS MD [facility] [address] [address] 09/12/2018 11:08:20 09/12/2018 12:25:00 History of right total knee replacement 6494949489 135434 Z96.008 [id number] MONALISA PATEL JR, MD JUSTIN [facility] [address],[facility] [address] [place] [address] 09/12/2018 13:25:38 09/13/2018 10:45:48 Retention of urine 729239205 R33.9 Benign pro static hyperplasia with outflow obstruction 411266449 N40.1 Prostate s pecific antigen above reference range 730308821 R97.20 [id number] BEATRIZ RAWLS MD [facility] [address] [address] 10/05/2018 10:50:29 10/05/2018 11:23:31 History of right total knee replacement 5534987644 361631 Z96.651 s/p Righ TKA on 08/30/2018 . [id number] BEATRIZ RAWLS MD [facility] [address] [address] 10/21/2018 07:55:11 10/21/2018 08:37:33 History of right total knee replacement 0634091692 502894 Z96.651 s/p Righ TKA on 08/30/2018 . [id number] BEATRIZ RAWLS MD [facility] [address] [address] 11/07/2018 10:15:46 11/07/2018 11:20:27 Replacement of total knee joint 792538926 Z96.301 [id number] BEATRIZ RAWLS MD [facility] [address] [address] 11/25/2018 10:21:57 11/25/2018 11:24:20 History of right total knee replacement 1694085041 952752 Z96.651 s/p Righ TKA on 08/30/2018 . [id number] MONALISA PATEL JR, MD [facility] [address] [facility] [address] [place] [address] 01/02/2019 16:02:25 01/04/2019 07:12:15 Prostate specific antigen above reference range 210387799 R97.20 Benign pro static hyperplasia with outflow obstruction 743029057 N40.1 [id number] BEATRIZ RAWLS MD [facility] [address] [place] [address] 01/11/2019 09:37:00 01/11/2019 11:02:41 History of right total knee replacement 5931051945 519892 Z96.651 s/p Right TKA on 08/30/2018 . [id number] MONALISA PATEL JR, MD [facility] [address] [facility] [address] [place] [address] 01/16/2019 15:18:29 01/18/2019 09:10:59 Prostate specific antigen above reference range 718823448 R97.20 Benign pro static hyperplasia with outflow obstruction 050650965 N40.1 [id number] BEATRIZ RAWLS MD [facility] [address] [address] 03/06/2019 15:51:24 03/06/2019 16:51:53 Replacement of total knee joint 029155929 Z96.651 Peroneal t endinitis of right lower limb 5776728104 76098 M76.71 [id number] MONALISA PATEL JR, MD [facility] [address] [facility] [address] [facility] [place] [address] 03/27/2019 15:58:33 03/28/2019 12:38:38 Benign prostatic hyperplasia with outflow obstruction 882510769 N40.1 Prostate s pecific antigen above reference range 189578380 R97.20 [id number] BEATRIZ RAWLS MD [facility] [address] [address] 09/20/2019 15:36:59 09/20/2019 16:57:49 History of right total knee replacement 4752796027 844151 Z96.651 s/p Right TKA on 08/30/2018 . [id number] BEATRIZ RAWLS MD [facility] [address] [address] 12/18/2019 12:45:22 12/18/2019 14:02:58 History of right total knee replacement 4174679814 507178 Z96.651 s/p Right TKA on 08/30/2018 . Iliotibial band friction syndrome of right knee 6000810777 42047 M76.31 [id number] BEATRIZ RAWLS MD [facility] [address] [address] 12/20/2019 10:17:03 12/20/2019 10:55:23 History of total knee arthroplasty 0930837635 105 Z96.977 [id number] BEATRIZ RAWLS MD [facility] [address] [address] 01/15/2020 10:02:15 01/15/2020 11:12:46 History of right total knee replacement 7349834577 266808 Z96.651 s/p Right TKA on 08/30/2018 . Pain in right knee 39156 68708 88472 M25.561 Z96.708 [id number] BEATRIZ RAWLS MD [facility] [address] [address] 01/26/2020 08:34:09 01/26/2020 10:32:52 History of total knee arthroplasty 8374929116 105 Z96.651 Iliotibial band friction syndrome of right knee 6460327812 61099 M76.31 Pain in right knee 73984 07194 87655 M25.561 Z96.613 [id number] MONALISA PATEL JR, MD [facility] [address] [facility] [address] [place] [address] 02/05/2020 13:04:04 02/06/2020 16:05:43 Benign prostatic hyperplasia with outflow obstruction 630415358 N40.1 Prostate s pecific antigen above reference range 470710457 R97.20 [id number] BEATRIZ RAWLS MD [facility] [address] [address] 03/11/2020 10:26:34 03/11/2020 11:02:59 History of total knee arthroplasty 4280953337 105 Z96.651 Contractur e of right knee joint 2687482663 16499 M24.066 [id number] BEATRIZ RAWLS MD [facility] [address] [address] 05/06/2020 12:36:28 05/06/2020 13:30:02 Contracture of right knee joint 9764679100 74440 M24.561 History of right total knee replacement 0524727868 882148 Z96.651 s/p Right TKA on 08/30/2018 . [id number] MONALISA PATEL JR, MD [facility] [address] [facility] [address] [place] [address] 01/06/2021 13:48:46 01/16/2021 10:01:53 Prostatitis 4785544 N41.9 Benign pro static hyperplasia with outflow obstruction 766302050 N40.1 Prostate s pecific antigen above reference range 959962360 R97.20 [id number] MONALISA PATEL JR, MD [facility] [address] [facility] [address] [place] [address] 04/07/2021 12:54:04 04/08/2021 09:13:17 Prostatitis 1851099 N41.9 Benign pro static hyperplasia with outflow obstruction 408207559 N40.1 Prostate s pecific antigen above reference range 192947410 R97.20 [id number] MONALISA PATEL JR, MD [facility] [address] [facility] [address] [place] [address] 06/16/2021 13:13:31 06/16/2021 18:23:34 Prostatitis 7554329 N41.9 Prostate s pecific antigen above reference range 041603458 R97.20 [id number] MONALISA PATEL JR, MD [facility] [address] [facility] [address] [place] [address] 07/28/2021 13:26:59 07/28/2021 17:46:52 Benign prostatic hyperplasia with outflow obstruction 390578768 N40.1 Prostatitis 9824309 N41. 9 Prostate s pecific antigen above reference range 050466160 R97.20 [id number] MONALISA PATEL JR, MD [facility] [address] [facility] [address] [place] [address] 02/02/2022 14:50:11 02/11/2022 20:32:18 Benign prostatic hyperplasia with outflow obstruction 014375661 N40.1 Prostate s pecific antigen above reference range 174397974 R97.20 [id number] MONALISA PATEL JR, MD [facility] [address] [facility] [address] [place] [address] 08/03/2022 14:16:06 08/10/2022 04:11:29 Prostate specific antigen above reference range 201940964 R97.20 Benign pro static hyperplasia with outflow obstruction 888321458 N40.1 [id number] MONALISA PATEL JR, MD [facility] [address] [facility],[address] [address] 11/15/2023 15:09:09 11/15/2023 18:17:39 Benign prostatic hyperplasia with outflow obstruction 085824433 N40.1 Prostate s pecific antigen above reference range 683906106 R97.20 Microscopic hematuria 19 9441471 R31.29 Plan for workup if persists [id number] MONALISA PATEL JR, MD [facility] [address] [facility] [address] [place] [address] 05/15/2024 14:06:39 05/22/2024 04:06:46 Prostate specific antigen above reference range 402062605 R97.20 continue observatio n. If continue to rise consider MRI prostate Benign pro static hyperplasia with outflow obstruction 511657160 N40.1 Health Concerns Section Related Observation LastModified [...] REPLACEMENT REGIONAL PPO) [id number] Paresh R Kevin [id number] Paresh R Kevin 05/15/2024 1 [place] Paersh R Kevin [id number] Paresh R Kevin 05/15/2024 1 [place] [id number] A Bill Kevin [id number] Paresh R Kevin Notes Date Note [...] total percentage 32.6% MONALISA PATEL JR, MD [address] [place] [address], [address], [facility] 07/28/2021 14:18:13 02/02/2022 text/html Patient [...] total percentage 32.6% MONALISA PATEL JR, MD [facility] [place], [address], [facility] 02/11/2022 18:57:59 08/03/2022 text/html Patient [...] digital rectal exam MONALISA PATEL JR, MD [address] [place] [address], [address], [facility] 08/09/2022 08:47:06 11/15/2023 text/html Patient [...] digital rectal exam MONALISA PATEL JR, MD [address] [place] [address], [phone], [facility] 11/22/2023 07:15:32 05/15/2024 text/html Patient is in today for follow-up of postoperative urinary retention and BPH. He is now voiding at baseline. He has not had any urinary retention episodes.No recent episodes of prostatitis Patient is now voiding normally. he is no longer using tamsulosin or finasteride. PSA 6.2, 18.9% 04/2024 Patient declines, digital rectal exam MONALISA PATEL JR, MD [address] [place] [address] [place], [address], [facility] 05/21/2024 16:08:44
--- OUTSIDE RECORDS SUMMARY | 2025-06-26 10:11 | XMS_ITS | Encounter Summary ---
Author Organization [employer] ([place], [place], [place], [place], [place]) Address [address] [place] [address] Care Team Providers Care Road Mixer Operator Name Role Phone Unavailable Primary Care Provider Unavailabl e Encounter Details Date Type Department Care Team (Late st Contact Info) Description 09/02/2018 Transcribed Document [facility] Medicine [facility] [place] [address] ProviderTree MD [facility] [place] [id number] Social History Tobacco Use Types Packs/Day Years [...] Tree Alonso MD - 09/02/2018 1:30 PM TIMBER DEADENER Post Visit Phone Call Entered On: 09/02/2018 13:33 EST Performed On: 09/02/2018 13:30 EST by JUAN FRAZIER Rn-Ortho Nurse Navigator Post Visit Phone Call Post Visit Phone Call History : First call Phone Number : [phone] Contact Relationship to Patient : Spouse Emergency [...] Urology appointment made with Dr. Eugene in [place] on 09/05/18 at 2:15. states understanding. JUAN FRAZIER, Boby-Ortho Nurse Navigator - 09/02/2018 13:30 EST Electronically signed by Amira [facility] Conversion Professional Athletes Coach Cerner at 10/27/2022 8:06 PM CDT documented in this encounter Plan of Treatment Not on file documented as of this encounter Visit Diagnoses Not on filedocumented in this encounter
--- OUTSIDE RECORDS SUMMARY | 2025-06-26 10:11 | XMS_ITS | Encounter Summary ---
Author Organization [employer] ([place], [place], [place], [place], [place]) Address [address] [place] [address] Care Team Providers Care Parish Visitor Name Role Phone Unavailable Primary Care Provider Unavailabl e Encounter Details Date Type Department Care Team (Late st Contact Info) Description 08/31/2018 Transcribed Document [facility] Family Medicine [address] [place] [address] ProviderTree MD [facility] [place] [address] Social History Tobacco Use Types [...] - Tree ProviderMD - 08/31/2018 10:44 AM SILK FOLDER Nursing Discharge Summary Entered On: 08/31/2018 10:44 [...] Questions Given : 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
--- OUTSIDE RECORDS SUMMARY | 2025-06-26 10:11 | XMS_ITS | Clinical Summary ---
Author Organization [facility] ([place], [place], [place], [place], [place]) Address [address] [place] [address] Care Team Providers Care Tire Duster Name Role Phone Unavailable Primary Care Provider [...]
--- OUTSIDE RECORDS SUMMARY | 2025-06-26 10:11 | XMS_ITS | Encounter Summary ---
Author Organization [employer] ([place], [place], [place], [place], [place]) Address [address] [place] [address] Care Team Providers Care Millinery Salesperson Name Role Phone Unavailable Primary Care Provider Unavailabl e Encounter Details Date Type Department Care Team (Late st Contact Info) Description 08/31/2018 Transcribed Document [facility] [address] [place] [address] ProviderTree MD [address] [place] [address] Social History Tobacco Use Types [...] - Tree ProviderMD - 08/31/2018 7:26 AM RITUAL CIRCUMCISER Care Management Assessment/Plan Entered On: 08/31/2018 11:28 [...] am to discuss DCP. FRW obtained from [facility] and has been delivered to pt's room. Referral sent to [facility] via [facility] and informed liaison Aminah. No [...]
--- OUTSIDE RECORDS SUMMARY | 2025-06-26 10:11 | XMS_ITS | Encounter Summary ---
Author Organization [employer] ([place], [place], [place], [place], [place]) Address [address] [place] [address] Care Team Providers Care Mercantile Reporter Name Role Phone Unavailable Primary Care Provider Unavailabl e Encounter Details Date Type Department Care Team (Late st Contact Info) Description 08/31/2018 Transcribed Document [facility] Family Medicine [facility] [place] [address] ProviderTree MD [address] [place] [id number] Social History Tobacco Use Types Packs/Day [...] Tree Alonso MD - 08/31/2018 10:51 AM [employer] [address] [place] [address] Patient Copy Patient Information: Name: PETRA VILLALBA Current Date: 08/31/2018 10:51:42 : 1955 Patient Address: [address] [place] [id number] Patient Attending Physician: BEATRIZ RAWLS MD-ORT Primary Care Provider: BILL VENTURA MD-KATHLEEN Primary Care Provider Discharge Diagnosis: Weight on Admission: 224 lb, 0 oz Comment: Follow-up Instructions: With: Address: When: BEATRIZ RAWLS [email or web address] [facility], [place] [id number] [facility] (1) 11:00 AM Discharge Instructions: Diet [...] nasal (fluticasone 50 mcg/inh nasal spray) 1 [place](s) Nostrils Both Every Day. fluticasone/umeclidinium/vilanterol (Trelegy Ellipta) [...] 10/23/2013 Document Revised: 07/19/2015 Document Reviewed: 06/13/2016 [employer] Interactive Patient Education ? 2017 [employer] Wound Infection Introduction A wound infection [...] instructions at home: Medicines??? Take or apply dvpp-myx-llkydfo and prescription medicines only as told by [...] cannot use soap and water, use hand configuration management administrator. ? Change your bandage as told by [...] these instructions at home: Medicines ??? Take gwqh-ycf-lfuupks and prescription medicines only as told by [...] cannot use soap and water, use hand configuration management administrator. ? Change your bandage as told by [...] 09/19/2012 Document Revised: 03/01/2017 Document Reviewed: 06/03/2016 [employer] Interactive Patient Education ? 2017 [employer]. Medication Leaflets: tamsulosin (durant angeline FEROZ [...] may report side effects to FDA at 7-782-PTW-1618. What other drugs will affect tamsulosin? Tell [...] may affect tamsulosin. This includes prescription and pqhd-kna-bfczuxp medicines, vitamins, and herbal products. Not all [...] to ensure that the information provided by [employer]. ('[employer]') is accurate, up-to-date, and complete, but no guarantee is made to that effect. Drug information contained herein may be time sensitive. [employer] information has been compiled for use by healthcare practitioners and consumers in the [place] and therefore [employer] does not warrant that uses outside of the [place] are appropriate, unless specifically indicated otherwise. [employer] drug information does not endorse drugs, diagnose patients or recommend therapy. [employer] drug information is an informational resource designed [...] effective or appropriate for any given patient. [employer] does not assume any responsibility for any aspect of healthcare administered with the aid of information [facility] provides. The information contained herein is not intended to cover all possible uses, directions, precautions, warnings, drug interactions, allergic reactions, or adverse effects. If you have questions about the drugs you are taking, check with your doctor, nurse or pharmacist. Copyright 7710-3260 [facility]. Version: 9.01. Revision Date: 06/06/2018. enoxaparin (ee [...] may report side effects to FDA at 3-278-BBI-7170. What other drugs will affect enoxaparin? Tell [...] drugs may affect enoxaparin, including prescription and otwq-vsn-mbffhkm medicines, vitamins, and herbal products. Not all [...] to ensure that the information provided by [employer]') is accurate, up-to-date, and complete, but no guarantee is made to that effect. Drug information contained herein may be time sensitive. [employer] information has been compiled for use by healthcare practitioners and consumers in the [place] and therefore [employer] does not warrant that uses outside of the [place] are appropriate, unless specifically indicated otherwise. [employer]'s drug information does not endorse drugs, diagnose patients or recommend therapy. [employer] drug information is an informational resource designed [...] effective or appropriate for any given patient. [facility] does not assume any responsibility for any aspect of healthcare administered with the aid of information [facility] provides. The information contained herein is not intended to cover all possible uses, directions, precautions, warnings, drug interactions, allergic reactions, or adverse effects. If you have questions about the drugs you are taking, check with your doctor, nurse or pharmacist. Copyright 7058-2163 [facility]. Version: 05.12. Revision [...] may report side effects to FDA at 5-927-VIA-4814. What other drugs will affect acetaminophen and [...] affect acetaminophen and oxycodone, including prescription and amjq-flw-lbkvtcv medicines, vitamins, and herbal products. Not all [...] to ensure that the information provided by [employer]') is accurate, up-to-date, and complete, but no guarantee is made to that effect. Drug information contained herein may be time sensitive. [employer] information has been compiled for use by healthcare practitioners and consumers in the [place] and therefore [employer] does not warrant that uses outside of the [place] are appropriate, unless specifically indicated otherwise. [employer] drug information does not endorse drugs, diagnose patients or recommend therapy. [employer] drug information is an informational resource designed [...] effective or appropriate for any given patient. [employer] does not assume any responsibility for any aspect of healthcare administered with the aid of information [employer] provides. The information contained herein is not intended to cover all possible uses, directions, precautions, warnings, drug interactions, allergic reactions, or adverse effects. If you have questions about the drugs you are taking, check with your doctor, nurse or pharmacist. Copyright 7111-9109 [employer]. Version: 18.02. Revision Date: 06/08/2018. CIGARETTE SMOKING: The facts are clear, cigarette smoking will shorten your life. Smoking can cause many illnesses along the way. As a healthcare provider, we recommend that you stop smoking. Assistance with quitting is available by contacting 9-656-EZSW-NOW. This is a free resource providing counseling, [...] Be sure to sign up for the [facility] patient portal, which gives you / access to your medical information ??? including these discharge instructions ??? using your computer, smartphone, or tablet. Just go to [employer] to get started. Questions? Call . [facility] would like to thank you for allowing us to assist you with your healthcare needs. IDEJEAY BILL RAY, (or sales representative metals) have received the above patient education materials/instructions and have verbalized understanding: Patient Signature _ Date/Time Patient Managed Services Consultant Signature (if needed) Date/Time Clinician/Hospital Managed Services Consultant Signature (if needed) Date/Time documented in this encounter Plan of Treatment Not on file documented as of this encounter Visit Diagnoses Not on filedocumented in this encounter
--- OUTSIDE RECORDS SUMMARY | 2025-06-26 10:11 | XMS_ITS | Patient Health Record ---
Author Organization [facility] Address [address] [place] [id number] Care Team Providers Care Skip Locator Name Role Phone Funmi Thurman Primary Care Provider [phone] FUNMI THURMAN Unavailable Unavailable Allergies Allergen (clinical drug ingredient) Drug/Non Drug Allergy documented on EMR Reaction Allergy Type Onset Date Status rosuvastatin Crestor muscle aches Drug Allergy A ctive Results Component Value Reference Range Notes P-Comprehensive Metabolic Pa waqar (CMP) Reviewed date:07/20/2024 12:41:50 PM Interpretation:ast 99, bili 1.4 Performing Lab: Notes/Report: Test performed by [facility] , [address], [place] [address] Rodríguez Cohen MD, Label Paster CLIA: [id number] Sodium 140 135-145 mmol/L Potassium 3.7 3.5-5.3 [...] 3.8 Performing Lab: Notes/Report: Test performed by [facility] [address] [place] [address] [address], [place] [address] Rodríguez Cohen MD, Label Paster CLIA: [id number] Cholesterol 220 <200 mg/dL Triglycerides 144 <150 [...] Interpretation:8.65 Performing Lab: Notes/Report: Test performed by [facility] [address] [place] [address] , [address], [place] [address] Rodríguez Cohen MD, Label Paster CLIA: [id number] PSA 8.65 <4.00 ng/mL Please note this is an ultrasensitive PSA assay with a lower limit of detection of 0.014 ng/mL. This test is performed by the [employer] ECLIA methodology. Values obtained with different assay methods or kits cannot be directly compared. PSA Free 2.23 This test is performed by the [employer] ECLIA methodology. Values obtained with different assay [...] Interpretation:Normal Performing Lab: Notes/Report: Test performed by [facility] [address] [place] [address] , [address], [place] [address] Rodríguez Cohen MD, Label Paster CLIA: [id number] TSH reflex to FT4 1.43 0.43-5.25 mU/L P-Microalbumin/Creatinine, R andom Urine Sample Reviewed date:07/20/2024 12:41:50 PM Interpretation:a/c 36 Performing Lab: Notes/Report: Test performed by [facility] [address] [place] [address] , [address], [place] [address] Rodríguez Cohen MD, Label Paster CLIA: [id number] Albumin/Creatinine Ratio, Urine 36 0-30 ug/mg Microalbumin, Urine, Random 3.6 Creatinine, Urine 98.9 P-Basic Metabolic Panel (BMP ) Reviewed date:11/07/2024 09:39:24 AM Interpretation:co2- 21, gluc 103, Cr 1.36, Ca 11.6, gfr 55 Performing Lab: Notes/Report: Test performed by [facility] [address] , [place] [address] Rodríguez Cohen MD, Label Paster CLIA: [id number] Sodium 143 135-145 mmol/L Potassium 3.7 3.5-5.3 mmol/L Chloride 107 97-108 mmol/L CO2 21 22-32 mmol/L Glucose 103 65-99 mg/dL BUN 18 8-23 mg/dL Creatinine 1.39 0.70-1.30 mg/dL Calcium 11.6 8.6-10.4 mg/dL eGFR by Creatinine 55 >59 mL/min/1.73m2 MT Reviewed date:07/19/2024 08:59:30 AM Interpretation: Performing Lab: Notes/Report: MRI : Spine, Thoracic, witho ut contrast Reviewed date:07/14/2024 03:27:54 PM Interpretation:Abnormal Performing Lab: Notes/Report: Abnormal P-Basic Metabolic Panel (BMP ) Reviewed date:03/16/2025 01:58:09 PM Interpretation:Normal Performing Lab: Notes/Report: Test performed by [facility] [address] [place] [address] , [address], [place] [address] Rodríguez Cohen MD, Label Paster CLIA: [id number] Sodium 139 135-145 mmol/L Potassium 3.9 3.5-5.3 mmol/L Chloride 102 97-108 mmol/L CO2 24 20-32 mmol/L Glucose 94 65-99 mg/dL BUN 12 8-23 mg/dL Creatinine 0.93 0.70-1.30 mg/dL Calcium 9.8 8.6-10.4 mg/dL eGFR by Creatinine 89 >59 mL/min/1.73m2 Reason For Referral Reason Pt needs to see pain management at [facility] about having a kyphoplasty on the T-spine compression fracture Diagnosis 1 Acute bilateral low back pain without sciatica (M54.50) Diagnosis 2 Back muscle spasm (M 62.830) Referral Organization [facility] Referring Provider First Name Funmi Referring Provider Last Name Olman Referring Provider Speciality Family Pra ctice Referred Provider Camden Katz Referred Provider Specialty Pain Managem ent General Notes Blanche Ortega 1:41:22 PM > referral faxed to Dr. Katz. Pt needs to see pain management at [facility] about having a kyphoplasty on the T-spine compression fracture, Torrey Ortegaia 07/19/2024 2:45:07 PM > Dr. Thurman spoke with pain management today Referral Priority Routine Medications Medication SIG (Take, Route, Frequency, Duration) Notes Start Date End Date Status Nebulizer - as directed Active Albuterol Sulfate HFA 108 (90 Base) MCG/ACT 2 puff(s) inhaled 4 times a day as needed Active Trelegy Ellipta 100-62.5-25 MCG/ACT 1 puff Inhalation Once a day; Duration: 30 days Active traMADol HCl 50 MG 1 tablet as needed Orally every 6 hours 12/08/2024 Active Methocarbamol 500 MG 1 tablets Orally ev jana 6 hrs as needed Active Levalbuterol HCl 1.25 MG/3ML 3 ml by neb ulizer q 4 hours as needed; Duration: 90 days Active Irbesartan-hydroCHLOROthiazi de 150-12.5 MG 1 tablet Orally Once a day 02/19/2025 Active Immunizations Vaccine Route Administration Date Status Comme nts xFluzone (6mos and older)-trivalent Unknown 05/12/2016 Administered xFlu shot-36 months and older Unknown 04/11/2018 Administered Tetanus Tdap-Adacel (over 7yrs) Unknown 08/17/2013 Administered Prevnar (PCV20) Unknown 05/14/2022 Administered PNEUMOVAX 23 VACCINE IM Intramuscular 02/07/2017 Administe red Fluzone Quad (6months&older) IM Intramuscular 05/23/2016 Administered Fluzone Quad (6months&older) IM Intramuscular 04/05/2020 Administered Fluzone PF Quad (6-35 months) Unknown 05/23/2016 Administered Fluzone PF Quad (6-35 months) Unknown 04/27/2018 Administered Fluzone PF Quad (6-35 months) Unknown 05/13/2019 Administered Fluzone PF Quad (6-35 months) Unknown 04/05/2020 Administered Fluzone PF Quad (6-35 months) Unknown 03/29/2021 Administered Fluzone High Dose (65yr and older) Unknown 05/14/2022 Administered COVID 19 Maximus Unknown 09/18/2020 Administered COVID 19 Maximus Unknown 05/21/2021 Administered Problems Problem Type SNOMED Code ICD Code Onset Dates Problem Status W/U Status Risk Notes Problem Gastroesophageal reflux disease (086238039) GERD (gastroesophageal reflux disease) (K21.9) Active confirmed Problem Sinusitis (62583505) Sinusitis (J32.9) Active c onfirmed Problem Essential hypertension (88167535) Essential hypertension (I10) Active confirmed Problem Morbid obesity (077277983) Morbid obesity (E66.01) Active confirmed Problem Arthropathy of lumba r facet joint (620783155) Lumbar facet arthropathy (M47.816) Active confirmed Problem Obese class I (776063624360809) BMI 33.0-33.9,adult (Z68.33) Active confirmed Problem Sciatica (08409719) Lumbago with sciatica, right side (M54.41) Active confirmed Problem Multiple myeloma (703064834) Multiple myeloma not having achieved remission (C90.00) Active confirmed Problem Primary insomnia (9445107) Primary insomnia (F51.01) Active confirmed Problem Chronic pain (50620871) Other chronic pain (G89.29) Active confirmed Problem Spinal cord disorder (54161571) Unspecified cord compression (G95.20) Active confirmed Problem Pain of right knee region (finding) (928176981235974) Pain in right knee (M25.561) Active confirmed Problem Degeneration of lumbar intervertebral disc (61737316) Lumbar degenerative disc disease (M51.36) Active confirmed Problem Chronic pain (31770313) Other chronic pain (G89.29) Active confirmed Problem Chronic obstructive pulmonary disease with acute lower respiratory infection (019317535) COPD (chronic obstructive pulmonary disease) with acute bronchitis (J44.0) Active confirmed Problem Chronic obstructive pulmonary disease (06922043) Asthmatic bronchitis , chronic (J44.9) Active confirmed Problem Uncomplicated moderate persistent asthma (732143977) Moderate persistent asthma without complication (J45.40) Active confirmed Problem Displacement of lumbar intervertebral disc without myelopathy (97594342) Bulging lumbar disc (M51.26) Active confirmed Problem Backache (777550421) Mid back pain (M54.9) Activ e confirmed Problem COPD - Chronic obstructive pulmonary disease (79224297) Chronic obstructive pulmonary disease, unspecified COPD type (J44.9) Active confirmed Problem Mild intermittent asthma (866380208) Mild intermittent asthma without complication (J45.20) Active confirmed Problem Leukocytosis (971442969) Leukocytosis, unspecified type (D72.829) Active confirmed Problem Chronic bronchitis (28348783) Chronic bronchitis, unspecified chronic bronchitis type (J42) Active confirmed Problem Hyperlipidaemia (90769636) Hyperlipidemia, unspecified hyperlipidemia type (E78.5) Active confirmed Problem Chronic gouty arthritis (43980258) Chronic gout without tophus, unspecified cause, unspecified site (M1A.9XX0) Active confirmed Problem Pure hypercholesterolemia (426210226) Pure hypercholesterolemia (E78.00) Active confirmed Problem Benign prostatic hypertrophy without outflow obstruction (634384204) Benign prostatic hyperplasia without lower urinary tract symptoms (N40.0) Active confirmed Problem Elevated PSA (334426454) Elevated PSA (R97.20) Active confirmed Problem Degeneration of thoracic intervertebral disc (62093736) DDD (degenerative disc disease), thoracic (M51.34) Active confirmed Problem Primary hypertension (80265004) Primary hypertension (I10) Active confirmed Problem Pathological fractur e of vertebra (567845719) Nontraumatic compression fracture of T7 vertebra, initial encounter (M48.54XA) Active confirmed Vital Signs Heart Rate 81 /min 06/13/2025 Blood pressure diastolic 74 mm Hg 06/13/2025 Height 69 in 06/13/2025 Blood pressure systolic 152 mm Hg 06/13/2025 Weight 258.6 lbs 06/13/2025 BMI 38.18 kg/m2 06/13/2025 Encounters Encounter Location Date Provider Diagnosis [facility] [address] [facility] [address] [place] [id number] 06/28/2024 Funmi Chimayo Acute bilateral low back pain without sciatica M54.50 and Muscle spasm of back M62.830 [facility] [address] [place] [id number] 07/19/2024 Funmi Chimayo Essential hypertensi on I10 ; Hyperlipidemia, unspecified hyperlipidemia type E78.5 ; COPD (chronic obstructive pulmonary disease) with acute bronchitis J44.0 ; Elevated PSA R97.20 ; Prostate cancer screening Z12.5 ; Mid back pain M54.9 and Nontraumatic compression fracture of T7 vertebra, initial encounter M48.54XA [facility] [address] [facility] [address] [place], [place] [id number] 11/03/2024 Funmi Chimayo Renal insufficiency N28.9 ; Chronic obstructive pulmonary disease, unspecified COPD type J44.9 ; Compression fracture of body of thoracic vertebra S22.000A ; Thoracic spinal stenosis M48.04 ; Pure hypercholesterolemia E78.00 ; Mid back pain M54.9 ; Unspecified cord compression G95.20 and BMI 33.0-33.9,adult Z68.33 [facility] [address] [facility] [address] [place], [place] [id number] 12/12/2024 Funmi Chimayo Low back pain, unspe cified M54.50 ; Leukocytosis, unspecified type D72.829 and Multiple myeloma not having achieved remission C90.00 [facility] [address] [place], [place] [id number] 02/19/2025 Funmi Chimayo Essential hypertensi on I10 [facility] [address] [facility] [address] [place], [place] [id number] 03/14/2025 Funmi Chimayo Essential hypertensi on I10 [facility] [address] [facility] [address] [place], [place] [id number] 06/13/2025 Funmi Chimayo Essential hypertensi on I10 and Chronic obstructive pulmonary disease, unspecified COPD type J44.9 [facility] [address] [facility] [address] [place], [place] [id number] 06/28/2024 Funmi Chimayo [facility] [address] [facility] [address] [place], [place] [id number] 07/06/2024 Funmi Chimayo Bilateral thoracic b ack pain, unspecified chronicity M54.6 and DDD (degenerative disc disease), thoracic M51.34 [facility] [address] [place], [place] [id number] 07/11/2024 Funmi Chimayo [facility] [address] [place], [place] [id number] 07/20/2024 Funmi Chimayo [facility] [address] [place], [place] [id number] 09/05/2024 Funmi Chimayo [facility] [address] [place], [place] [id number] 09/21/2024 Funmi Chimayo [facility] [address] [place], [place] [id number] 10/26/2024 Funmi Chimayo [facility] [address] [place], [place] [id number] 11/07/2024 Funmi Chimayo [facility] [address] [place], [place] [id number] 11/22/2024 Funmi Chimayo [facility] [address] [place], [place] [id number] 12/08/2024 Funmi Chimayo [facility] [address] [place], [place] [id number] 12/08/2024 Funmi Chimayo Pain, cancer G89.3 [facility] [address] [place], [place] [id number] 12/28/2024 Funmi Chimayo Chronic obstructive pulmonary disease, unspecified COPD type J44.9 Assessments Encounter Date Diagnosis (ICD Code) Assessment Notes Treatment Notes Treatment Clinical Notes Section Notes 06/28/2024 Muscle spasm of back (ICD-10 - M62.830) 06/28/2024 Acute bilateral low back pain without sciatica (ICD-10 - M54.50) 07/06/2024 Bilateral thoracic b ack pain, unspecified chronicity (ICD-10 - M54.6) 07/06/2024 DDD (degenerative di sc disease), thoracic (ICD-10 - M51.34) 07/19/2024 Essential hypertensi on (ICD-10 - I10) 07/19/2024 Hyperlipidemia, unspecified hyperlipidemia type (ICD-10 - E78.5) 11/03/2024 Renal insufficiency (ICD-10 - N28.9) 11/03/2024 Chronic obstructive pulmonary disease, unspecified COPD type (ICD-10 - J44.9) 12/12/2024 Leukocytosis, unspecified type (ICD-10 - D72.829) Results of recent bone marrow biopsy at and Heme/Onc note obtained and reviewed. Spoke to Dr. Gibbons at [facility] Oncology today. Patient does indeed have multiple myeloma 12/12/2024 Low back pain, unspecified (ICD-10 - M54.50) Patient is going to follow up with for all of his pain management 12/28/2024 Chronic obstructive pulmonary disease, unspecified COPD type (ICD-10 - J44.9) 02/19/2025 Essential hypertensi on (ICD-10 - I10) 03/14/2025 Essential hypertensi on (ICD-10 - I10) 06/13/2025 Essential hypertensi on (ICD-10 - I10) 06/13/2025 Chronic obstructive pulmonary disease, unspecified COPD type (ICD-10 - J44.9) 12/08/2024 Pain, cancer (ICD-10 - G89.3) 12/12/2024 Multiple myeloma not having achieved remission (ICD-10 - C90.00) 11/03/2024 Compression fracture of body of thoracic vertebra (ICD-10 - S22.000A) 07/19/2024 COPD (chronic obstructive pulmonary disease) with acute bronchitis (ICD-10 - J44.0) 07/19/2024 Elevated PSA (ICD-10 - R97.20) 11/03/2024 Thoracic spinal stenosis (ICD-10 - M48.04) Notes from surgery reviewed in office today 11/03/2024 Pure hypercholesterolemia (ICD-10 - E78.00) 07/19/2024 Prostate cancer screening (ICD-10 - Z12.5) 11/03/2024 Mid back pain (ICD-1 0 - M54.9) 07/19/2024 Mid back pain (ICD-1 0 - M54.9) Spoke to Dr. Katz's office staff and BI CONSULTANT today. They will see patient today to evaluate for kyphoplasty 07/19/2024 Nontraumatic compression fracture of T7 vertebra, initial encounter (ICD-10 - M48.54XA) 11/03/2024 Unspecified cord compression (ICD-10 - G95.20) 11/03/2024 BMI 33.0-33.9,adult (ICD-10 - Z68.33) 11/03/2024 Other Discharge summary with available lab/diagnostic imaging results obtained and reviewed. Discharge medication list reconciled. Appropriate counseling provided. Moderate Complexity 12/12/2024 Other Need requests about ECHO request from Plan Of Treatment Next Appt Details Provider Name:Funmi chavira, 10/12/2025 01:30:00 PM, [address], [place], [place], [id number], Insurance Providers Payer Name Payer Address Payer Phone Subscriber Number Group Number Insured Name Patient Relationship to Insured Coverage Start Date Coverage End Date [employer] [address] [place] [address] [id number] Harjit Brown Self - patient is the insured MEDICARE PART B [address] [address] [place] [id number] Kevin Harjit Self - patient is the insured Medical (General) History Medical History History ICD Code COPD dx. November 2015 Arthritis asthma allergic rhinitis chronic low back pain, herniated disc L5 elevated PSA, s/p urology evaluation DJD of knee Colon polyps Thoracic Compression fracture - T7 Surgical History Surgery Date(Month/Year) Colonoscopy 2022 Rt Knee Replacement 08/30/2018 Kyphoplasty - T7 Thoracic fusion - multiple levels at 2024
--- OUTSIDE RECORDS SUMMARY | 2025-06-26 10:11 | XMS_ITS | Encounter Summary ---
Author Organization [employer] ([place], [place], [place], [place], [place]) Address [address] [place] [address] Care Team Providers Care Binding Dyer Name Role Phone Unavailable Primary Care Provider Unavailabl e Encounter Details Date Type Department Care Team (Late st Contact Info) Description 08/31/2018 Transcribed Document [facility] Family Medicine [facility] [place] [address] ProviderTree MD [facility] [place] [id number] Social History Tobacco Use Types Packs/Day Years [...] Tree Alonso MD - 08/31/2018 3:00 PM RUBBER STAMP DIE INSPECTOR Orthopedic Nurse Navigator Entered On: 08/31/2018 15:03 EST Performed On: 08/31/2018 15:00 EST by JUAN FRAZIER Rn-Ortho Nurse Navigator Orthopedic Nurse Navigator Assessment Attended [employer] : Yes Joint AcademyType : In person [employer] Date : 08/19/2018 EST Joint Stitch Cleaner Attended Academy : Yes Joint Stitch Cleaner Name : [place] Type of Surgery : Total Knee Replacement, Right Does Patient Have a Walker? : No Walker/toilette Ordered for After Discharge : Yes Anticipated Discharge Plan : Home Health PT Anticipated Discharge Plan Comment : Patient plan set at [employer] to d/c home with the help of his and [facility]. [...]
--- OUTSIDE RECORDS SUMMARY | 2025-06-26 10:12 | XMS_ITS | Encounter Summary ---
Author Organization [employer] ([place], [place], [place], [place]) Address [address] [place] [address] Care Team Providers Care Bridge Expert Name Role Phone Unavailable Primary Care Provider Unavailabl e Encounter Details Date Type Department Care Team (Late st Contact Info) Description 08/31/2018 Transcribed Document [facility] Family Medicine [facility] [address] ProviderTree MD [address] [place], [place] [id number] Social History Tobacco Use Types Packs/Day Years [...] Tree Alonso MD - 08/31/2018 2:47 PM EATING DISORDER PSYCHOLOGIST Patient Education Materials Follows:Disease Wound Infection Introduction [...] instructions at home: Medicines??? Take or apply ftgf-iuo-fwciqac and prescription medicines only as told by [...] cannot use soap and water, use hand sleeping room cleaner. ? Change your bandage as told by [...] these instructions at home: Medicines ??? Take dejh-xfl-wvmfmkh and prescription medicines only as told by [...] cannot use soap and water, use hand sleeping room cleaner. ? Change your bandage as told by [...] 09/19/2012 Document Revised: 03/01/2017 Document Reviewed: 06/03/2016 [employer] Patient Education ? 2017 [employer] Urology Plascencia Catheter Care, Adult A [...] 10/23/2013 Document Revised: 07/19/2015 Document Reviewed: 06/13/2016 [employer] Patient Education ? 2017 [employer] documented in this encounter Plan of Treatment Not on file documented as of this encounter Visit Diagnoses Not on filedocumented in this encounter
--- OUTSIDE RECORDS SUMMARY | 2025-06-26 10:12 | XMS_ITS | Encounter Summary ---
Author Organization [facility] Address [address] [place] [address] Care Team Providers Care Cream Maker Name Role Phone Parrish Thurman MD Primary Care Provider + [phone] Reason for Visit * Reason Comments Med Refill Encounter Details Date Type Department Care Team ([facility] st Contact Info) Description 01/06/2025 Refill [facility] [address] [facility], [address] [place] [address] Hilario Burger MD [address] [place] [address] Vitamin D deficiency Social History [...] any time in the past 12 m [facility], were you homeless or living in a [...] drink first t kiet in the morning (EYE-ROLLER PICKER) to steady your nerves or to get [...] Start Date Job End Date 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 file Not on file Not on file documented as of this encounter Plan of Treatment Upcoming Encounters Date Type Department Care Team (Late st Contact Info) Description 12/07/2025 1:00 PM EDT Office Visit Medical Office Building [facility] [address] [facility], [address] [place] [address] Afshan Bryan MD [address] [place] [address] documented as of this encounter [...] documented as of this encounter Care Teams Cream Maker Relationship Specialty Start Date End Date Parrish Thurman MD [address] [facility] [address] [place] [address] PCP - General 10/19/24 documented as of this encounter
--- OUTSIDE RECORDS SUMMARY | 2025-06-26 10:12 | XMS_ITS | Encounter Summary ---
Author Organization [employer] ([place], [place], [place], [place], [place]) Address [address] [place] [address] Care Team Providers Care Clerical Investigator Name Role Phone Unavailable Primary Care Provider Unavailabl e Encounter Details Date Type Department Care Team (Late st Contact Info) Description 08/31/2018 Transcribed Document [facility] [place] [facility] [address] ProviderTree MD [facility] [place], [place] [phone] Social History Tobacco Use Types Packs/Day Years [...] - Tree ProviderMD - 08/31/2018 12:39 PM CYTOGENETICS LABORATORY MANAGER Treatment Intervention, PT Entered On: 08/31/2018 16:05 [...] AM-PAC Basic Mobility Standardized Score : 43.63 AM[facility] Basic Mobility CMS 0-100% Score [...] CARLOS CASTILLO, PT - 08/31/2018 15:55 EST Custodial Goals Mobility/Bed Mobility LTG PT Grid Goal [...] Patient was independent with TKR HEP. Joint athletic coach was present for teaching and states [...] CARLOS CASTILLO, PT - 08/31/2018 15:55 EST [facility] Charges PT Therap. Exercise 15 min : 1 Gait Training Each 15 Min : 2 CARLOS CASTILLO PT - 08/31/2018 15:55 EST documented in this encounter Plan of Treatment Not on file documented as of this encounter Visit Diagnoses Not on filedocumented in this encounter
--- OUTSIDE RECORDS SUMMARY | 2025-06-26 10:12 | XMS_ITS | Encounter Summary ---
Author Organization Healthcare Address [address] [place] [address] Care Team Providers Care Media Services Director Name Role Phone Parrish Thurman MD Primary Care Provider + [phone] Encounter Details Date Type Department Care Team (Late st Contact Info) Description 04/26/2025 Telephone [facility] [address] [place] [phone] Victorina Hurt, PharmD [facility] [place] [place] [address] Social History Tobacco Use Types Packs/Day Years [...] any time in the past 12 m [facility], were you homeless or living in [...] drink first t kiet in the morning (EYE-REAL ESTATE ACCOUNT EXECUTIVE) to steady your nerves or to get [...] Start Date Job End Date 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 file Not on file Not on file documented as of this encounter Plan of Treatment Upcoming Encounters Date Type Department Care Team (Late st Contact Info) Description 12/07/2025 1:00 PM EDT Office Visit Medical Office Building [facility] [address], [address] [place] [address] Afshan Bryan MD [address] [place] [address] documented as of this [...] documented as of this encounter Care Teams Media Services Director Relationship Specialty Start Date End Date Parrish Thurman MD [address] [facility] [address] [address] PCP - General 10/19/24 documented as of this encounter
--- OUTSIDE RECORDS SUMMARY | 2025-06-26 10:12 | XMS_ITS | Clinical Summary ---
Author Organization [facility] Address [address] [place] [address] Phone [email or web address] Care Team Providers Care Consumer Relations Specialist Name Role Phone Handy Pennington Primary Care Provider [phone] Allergies No known active allergies Medications fluticasone [...] Insurance XIN [place] 5 Care Teams Consumer Relations Specialist Relationship Specialty Start Date End Date Handy Pennington [address] [place] [id number] PCP - General General Surgery 09/11/19
--- OUTSIDE RECORDS SUMMARY | 2025-06-26 10:12 | XMS_ITS | Encounter Summary ---
Author Organization [employer] ([place], [place], [place], [place], [place]) Address [address] [place] [address] Care Team Providers Care Certified Income Tax Preparer Name Role Phone Unavailable Primary Care Provider Unavailabl e Encounter Details Date Type Department Care Team (Late st Contact Info) Description 08/31/2018 Transcribed Document [facility] [place] Family Medicine [address] [place] [address] ProviderTree MD [address] [place] [address] Social History Tobacco Use Types [...] - Tree ProviderMD - 08/31/2018 12:00 PM TAXICAB STARTER Pain Assessment Entered On: 08/31/2018 15:28 EST [...] EST Pain Scale Intensity : 4 Xochilt aB RN - 08/31/2018 15:28 EST Image 4 - Images currently included in the form version of this document have not been included in the text rendition version of the form. documented in this encounter Plan of Treatment Not on file documented as of this encounter Visit Diagnoses Not on filedocumented in this encounter
--- OUTSIDE RECORDS SUMMARY | 2025-06-26 10:12 | XMS_ITS | Encounter Summary ---
Author Organization [employer] ([place], [place], [place], [place], [place]) Address [address] [place] [address] Care Team Providers Care Corsetier Name Role Phone Unavailable Primary Care Provider Unavailabl e Encounter Details Date Type Department Care Team (Late st Contact Info) Description 08/31/2018 Transcribed Document [facility] [place] [facility] [place] [address] ProviderTree MD [address] [place] [address] Social History Tobacco Use Types Packs/Day [...] Tree Alonso MD - 08/31/2018 2:47 PM FOOT DOCTOR [address] [place] [address] Patient Copy Patient Information: Name: PETRA VILLALBA Current Date: 08/31/2018 14:47:08 : 1955 Patient Address: [address] [place] [id number] Patient Attending Physician: BEATRIZ RAWLS MD-ORT Primary Care Provider: BILL VENTURA MD-KATHLEEN Primary Care Provider Discharge Diagnosis: Weight on Admission: 224 lb, 0 oz Comment: Follow-up Instructions: With: Address: When: BEATRIZ RAWLS [address], [place] [phone] Business (1) 11:00 AM Discharge Instructions: Diet [...] incision site Medical Equipment for Home Use: [employer]--[phone] [facility][phone] Immunizations Documented During Stay: No Immunizations Found [...] nasal (fluticasone 50 mcg/inh nasal spray) 1 Shelby(s) Nostrils Both Every Day. fluticasone/umeclidinium/vilanterol (Trelegy Ellipta) [...] 10/23/2013 Document Revised: 07/19/2015 Document Reviewed: 06/13/2016 [employer] Interactive Patient Education ? 2017 [employer]. Wound Infection Introduction A wound infection happens [...] instructions at home: Medicines??? Take or apply umjo-iao-mlgivjl and prescription medicines only as told by [...] cannot use soap and water, use hand habilitation worker. ? Change your bandage as told [...] these instructions at home: Medicines ??? Take vypg-dey-xlpwgvn and prescription medicines only as told by [...] cannot use soap and water, use hand habilitation worker. ? Change your bandage as told [...] 09/19/2012 Document Revised: 03/01/2017 Document Reviewed: 06/03/2016 [employer] Interactive Patient Education ? 2017 [employer]. Medication Leaflets: tamsulosin (durant angeline FEROZ [...] may report side effects to FDA at 2-529-RXL-2636. What other drugs will affect tamsulosin? Tell [...] may affect tamsulosin. This includes prescription and llhh-hlv-uyskudd medicines, vitamins, and herbal products. Not all [...] to ensure that the information provided by [employer]. ('[employer]') is accurate, up-to-date, and complete, but no guarantee is made to that effect. Drug information contained herein may be time sensitive. [employer] information has been compiled for use by healthcare practitioners and consumers in the [place] and therefore [employer] does not warrant that uses outside of the [place] are appropriate, unless specifically indicated otherwise. [employer]'s drug information does not endorse drugs, diagnose patients or recommend therapy. [employer] drug information is an informational resource designed [...] effective or appropriate for any given patient. [facility] does not assume any responsibility for any aspect of healthcare administered with the aid of information [facility] provides. The information contained herein is not intended to cover all possible uses, directions, precautions, warnings, drug interactions, allergic reactions, or adverse effects. If you have questions about the drugs you are taking, check with your doctor, nurse or pharmacist. Copyright 6897-1294 [facility]. Version: 9.01. Revision Date: 06/06/2018. enoxaparin (ee [...] may report side effects to FDA at 2-129-MNF-6385. What other drugs will affect enoxaparin? Tell [...] drugs may affect enoxaparin, including prescription and brbq-hci-fzeclgn medicines, vitamins, and herbal products. Not all [...] to ensure that the information provided by [employer]. ('[employer]') is accurate, up-to-date, and complete, but no guarantee is made to that effect. Drug information contained herein may be time sensitive. [employer] information has been compiled for use by healthcare practitioners and consumers in the [place] and therefore [employer] does not warrant that uses outside of the [place] are appropriate, unless specifically indicated otherwise. [employer]'s drug information does not endorse drugs, diagnose patients or recommend therapy. [employer] drug information is an informational resource designed [...] effective or appropriate for any given patient. [employer] does not assume any responsibility for any aspect of healthcare administered with the aid of information [employer] provides. The information contained herein is not intended to cover all possible uses, directions, precautions, warnings, drug interactions, allergic reactions, or adverse effects. If you have questions about the drugs you are taking, check with your doctor, nurse or pharmacist. Copyright 5869-1090 [facility]. Version: .. Revision Date: 10/14/2017. acetaminophen and [...] may report side effects to FDA at 6-183-GZK-7550. What other drugs will affect acetaminophen and [...] affect acetaminophen and oxycodone, including prescription and loud-www-wxykwbc medicines, vitamins, and herbal products. Not all [...] to ensure that the information provided by [employer]. ('[employer]') is accurate, up-to-date, and complete, but no guarantee is made to that effect. Drug information contained herein may be time sensitive. [employer] information has been compiled for use by healthcare practitioners and consumers in the [place] and therefore [employer] does not warrant that uses outside of the [place] are appropriate, unless specifically indicated otherwise. [employer] drug information does not endorse drugs, diagnose patients or recommend therapy. [employer] drug information is an informational resource designed [...] effective or appropriate for any given patient. [employer] does not assume any responsibility for any aspect of healthcare administered with the aid of information [employer] provides. The information contained herein is not intended to cover all possible uses, directions, precautions, warnings, drug interactions, allergic reactions, or adverse effects. If you have questions about the drugs you are taking, check with your doctor, nurse or pharmacist. Copyright 6086-8766 [employer]. Version: 18.02. Revision Date: 06/08/2018. CIGARETTE SMOKING: The facts are clear, cigarette smoking will shorten your life. Smoking can cause many illnesses along the way. As a healthcare provider, we recommend that you stop smoking. Assistance with quitting is available by contacting 5-474-ABTK-NOW. This is a free resource providing counseling, [...] Be sure to sign up for the [employer] patient portal, which gives you 01/02 access to your medical information ??? including these discharge instructions ??? using your computer, smartphone, or tablet. Just go to [employer] to get started. Questions? Call . [facility] would like to thank you for allowing us to assist you with your healthcare needs. DEEJAY Pacheco BILL RAY, (or commercial pest control representative) have received the above patient education materials/instructions and have verbalized understanding: Patient Signature _ Date/Time Patient Structural Metal Worker Signature (if needed) Date/Time Clinician/Hospital Structural Metal Worker Signature (if needed) Date/Time Electronically signed by Amira [facility] Conversion Clinical Physician Assistant Justinner at 10/27/2022 8:07 PM CDT documented in this encounter Plan of Treatment Not on file documented as of this encounter Visit Diagnoses Not on filedocumented in this encounter
--- OUTSIDE RECORDS SUMMARY | 2025-06-26 10:12 | XMS_ITS | Encounter Summary ---
Author Organization Healthcare Address [address] [place] [id number] Care Team Providers Care Dray Driver Name Role Phone Parrish Thurman MD Primary Care Provider [phone] Reason for Visit * Reason Comments Med Refill Encounter Details Date Type Department Care Team ([facility] st Contact Info) Description 04/27/2025 Refill [facility] Hematology/BMT and Cellular Therapy Program [address] [address] Mohit Villarreal MD [address] [facility] [address] [place] [address] Multiple myeloma not having achieved remission (CMS/HCC) [...] drink first t kiet in the morning (EYE-CARDIOLOGIST) to steady your nerves or to get [...] Start Date Job End Date 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 file Not on file Not on file documented as of this encounter Plan of Treatment Upcoming Encounters Date Type Department Care Team ([facility] st Contact Info) Description 12/07/2025 1:00 PM EDT Office Visit Medical Office Building [facility] [address], [address] [place] [address] Afshan Bryan MD [address] [place] [address] documented as of this encounter [...] documented as of this encounter Care Teams Dray Driver Relationship Specialty Start Date End Date Parrish Thurman MD [address] [facility] [address] [place] [phone] PCP - General 10/19/24 documented as of this encounter
--- OUTSIDE RECORDS SUMMARY | 2025-06-26 10:12 | XMS_ITS | Encounter Summary ---
Author Organization [employer] ([place], [place], [place], [place], [place]) Address [address] [place] [address] Care Team Providers Care Biology Intern Name Role Phone Unavailable Primary Care Provider Unavailabl e Encounter Details Date Type Department Care Team (Late st Contact Info) Description 08/31/2018 Transcribed Document [facility] [place] [address] [place] [address] ProviderTree MD [address] [place], [place] [id number] Social History Tobacco Use Types Packs/Day Years [...] - Tree ProviderMD - 08/31/2018 2:59 PM SHEETMETAL TRADES WORKER Education-Surgery Entered On: 08/31/2018 14:59 EST Performed On: 08/31/2018 14:59 EST by JUAN FRAZIER Rn-Ortho Nurse Navigator Teaching/Learning Assessment Individuals Taught : Patient, Spouse Readiness to Learn : Cooperative Readiness to Learn : Demonstration, Explanation, Video/Educational TV Education Comment : Incentive Spirometry taught at [facility] JUAN FRAZIER Rn-Ortho Nurse Elizaator - 08/31/2018 14:59 EST Education Topics, Periop Preadmission Perioperative Education Grid Incentive Spirometry : Verbalizes understanding JUAN FRAZIER Rn-Ortho Nurse Elizaator - 08/31/2018 14:59 EST documented in this encounter Plan of Treatment Not on file documented as of this encounter Visit Diagnoses Not on filedocumented in this encounter
[2025-06-26 10:28] LABS: White Blood Count 1.5 K/mm3 (4.8-10.8)
[2025-06-26 10:32] LABS: Alanine Aminotransferase 34 U/L (12-78); Albumin Level 4.0 g/dl (3.5-5.0); Albumin/Globulin Ratio 1.5 (1.1-1.8); Alkaline Phosphatase 89 U/L (38-126); Anion Gap 16.5 mEq/L (5-15); Aspartate Amino Transferase 26 U/L (17-59); Bilirubin,Total 0.9 mg/dl (0.2-1.3); Blood Urea Nitrogen 29 mg/dl (9-20); Calcium 9.0 mg/dl (8.4-10.2); Carbon Dioxide 18 mmol/L (22.0-30.0); Chloride 111 mmol/L (98-107); Creatinine Clearance Estimated 87 mL/min (50-200); Creatinine,Serum 1.30 mg/dl (0.66-1.25); Estimated Glomerular Filt Rate 55 ml/min (>60); GFR (African American) 66 ML/MIN (>60); Globulin 2.6 g/dL (1.3-3.2); Glucose 204 mg/dl (74-100); Magnesium 2.0 mg/dl (1.6-2.3); Potassium 4.5 mmoL/L (3.5-5.1); Sodium 141 mmol/L (136-145); Total Protein,Serum 6.6 g/dl (6.3-8.2)
[2025-06-26 10:59] LABS: Total Cells Counted 50
[2025-06-26 11:00] LABS: RBC Morphology Normal
[2025-06-26 11:20] VITALS: BP 110/57; PULSE 67; RESP 18; O2SAT 95
[2025-06-26] MEDS: SODIUM CHLORIDE 0.9% 500ML BAG 500 ML IV (11:20)
[2025-06-26] MEDS: DEXAMETHASONE 4MG TABLET 40 MG PO (11:20)
[2025-06-26] MEDS: DEX 5% IN WATER 100ML IVPB 100 ML IV (11:52)
[2025-06-26 11:55] VITALS: BP 121/54; PULSE 65; RESP 18; O2SAT 95
[2025-06-26 12:06] VITALS: BP 108/53; PULSE 68; RESP 18; O2SAT 96
[2025-06-26 12:40] VITALS: BP 116/59; PULSE 61; RESP 18; O2SAT 95
[2025-06-26] MEDS: ZOLEDRONIC ACID 4 MG in 0.9 % SODIUM CHLORIDE 100 ML 420 MG IV (12:40)
[2025-06-26 13:05] VITALS: BP 109/54; PULSE 68; RESP 19; O2SAT 95
[2025-06-26] MEDS: SODIUM CHLORIDE 0.9% 10ML FLUSH SYRINGE 10 ML IV (13:05)
== END 2025-06-26 23:59 | disposition home or self-care (01) ==
PROVIDERS: PCP Family Medicine; Visit Provider Internal Medicine Medical Oncology
DX: C90.00 Multiple myeloma not having achieved remission (principal); Z51.11 Encounter for antineoplastic chemotherapy
CPT/HCPCS: 80053; 83735; 85007; 85025; 85027; 96375; 96409; J1642; J3489; J7040; J8540; J9047

== ENCOUNTER 2025-07-10 09:49 | Outpatient (CLI) | payer MEDICARE, SELFPAY ==
--- OUTSIDE RECORDS SUMMARY | 2024-07-19 08:45 | XMS_ITS ---
Author Organization [facility] Address [address] [place] [id number] Care Team Providers Care Department Of Natural Resources Officer Name Role Phone Funmi Thurman Primary Care Provider FUNMI THURMAN Unavailable Unavailable Allergies Allergen (clinical drug ingredient) Drug/Non Drug Allergy documented on EMR Reaction Allergy Type Onset Date Status rosuvastatin Crestor muscle aches Drug Allergy A ctive Results Component Value Reference Range Notes P-Comprehensive Metabolic Pa waqar (CMP) Reviewed date:07/20/2024 12:41:50 PM Interpretation:ast 99, bili 1.4 Performing Lab: Notes/Report: CLIA: [id number] Rodríguez Cohen MD, Auto Radiator Mechanic [facility] , [address], [place] [address] Test performed by [employer], [facility] Sodium 140 135-145 mmol/L Potassium 3.7 [...] 3.8 Performing Lab: Notes/Report: Test performed by [facility] [address] [place] [address] , [address], [place] [address] Rodríguez Cohen MD, Auto Radiator Mechanic CLIA: [id number] Cholesterol 220 <200 mg/dL Triglycerides 144 <150 [...] Interpretation:8.65 Performing Lab: Notes/Report: Test performed by [facility] [address] [place], [place] [address] [place] , [place] [address] Rodríguez Cohen MD, Auto Radiator Mechanic CLIA: [id number] PSA 8.65 <4.00 ng/mL Please note this is an ultrasensitive PSA assay with a lower limit of detection of 0.014 ng/mL. This test is performed by the [employer] ECLIA methodology. Values obtained with different assay methods or kits cannot be directly compared. PSA Free 2.23 This test is performed by the [employer] ECL[employer] methodology. Values obtained with different assay [...] Interpretation:Normal Performing Lab: Notes/Report: Test performed by [facility] [address] [place], [place] [address] [place] , [address], [place] [address] Rodríguez Cohen MD, Auto Radiator Mechanic CLIA: [id number] TSH reflex to FT4 1.43 0.43-5.25 mU/L P-Microalbumin/Creatinine, R andom Urine Sample Reviewed date:07/20/2024 12:41:50 PM Interpretation:a/c 36 Performing Lab: Notes/Report: Test performed by [facility] [address] [place], [place] [address] [place] , [address], [place] [address] Rodríguez Cohen MD, Auto Radiator Mechanic CLIA: [id number] Albumin/Creatinine Ratio, Urine 36 0-30 ug/mg Microalbumin, [...] Risk Notes Problem Pathological fracture of vertebra (191662156) Nontraumatic compression fracture of T7 vertebra, initial encounter (M48.54XA) Active confirmed Vital Signs Blood pressure systolic 142 mm Hg 07/19/19 25 Blood pressure diastolic 78 mm Hg 025 Heart Rate 106 /min 07/19/2024 Height 69 in 07/19/2024 Weight 265.4 lbs 07/19/2024 BMI 39.19 kg/m2 07/19/2024 Encounters Encounter Location Date Provider Diagnosis Barbara [address] [facility] [address] [place] [id number] 07/19/2024 Funmi Thurman Essential hypertensi on I10 [...] Spoke to Dr. Katz's office staff and SIGNALS INTELLIGENCE SUPERINTENDENT today. They will see patient today to evaluate for kyphoplasty 07/19/2024 Nontraumatic compression fracture of T7 vertebra, initial encounter (ICD-10 - M48.54XA) Plan Of Treatment Treatment Notes Assessment Notes Mid back pain Spoke to Dr. Katz's o [facility] staff and SIGNALS INTELLIGENCE SUPERINTENDENT today. They will see patient today to evaluate for kyphoplasty Next Appt Details Follow Up: via phone to repo rt test results, 6 Months, Reason: Provider Name:Funmi Jon , 10/12/2025 01:30:00 PM, [address] [facility], [address], [place], [id number], Progress Notes * DEEJAY HarjitDOB:1955 (69 yo M)Acc No.[id number]:07/19/2024 Progress Notes Patient: Harjit WEBBER Provider: Leigha Thurman M.D. :1955 A ge:68 Y S ex:Male Date:07/19/2024 Address:[address] [place] [address] [place], [place], [id number] Subjective: * Chief Complaints: * 1 . [...] Orally every 12 hrs , Discontinued Nystatin 865101 UNIT/ML Suspension 4 ml Mouth/Throat Four times [...] Spoke to Dr. Katz's office staff and SIGNALS INTELLIGENCE SUPERINTENDENT today. They will see patient today to evaluate for kyphoplasty?? * Procedure Codes: 9 4760 PULSE OX * Follow Up: v ia phone to report test results, 6 Months * Images: Billing Information: * Visit Code: 43832 Office Visit, Est Pt., Level 4. * Procedure Codes: 63063 PULSE OX. * Electronic signature of Jeri Thurman MD on 07/10/2025 at 09:57 AM EST Sign off status: Pending * Provider: Leigha Thurman M.D. Date: 0 07/19/2024 Generated for Oj baez/Fay/Wesleyitting on: 09:57 AM EST History and Physical Notes * [...]
--- OUTSIDE RECORDS SUMMARY | 2024-09-13 06:15 | XMS_ITS ---
Author Organization [facility] Address [address] [facility] [address] [place] [phone] Care Team Providers Care Cream Ripener Name Role Phone Funmi Thurman Primary Care Provider [phone] FUNMI THURMAN Unavailable Unavailable REASON FOR VISIT back pain Encounters Encounter Location Date Provider Diagnosis [facility] [address] [place] [phone] 09/13/2024 Funmi Thurman Plan Of Treatment Next Appt Details Provider Name:Funmi Jno ry, 10/12/2025 01:30:00 PM, [address], [place], [phone], Progress Notes * Harjit VILLALBADOB:1955 (69 yo M)Acc No.[id number]:09/13/2024 Progress Notes Patient: Harjit WEBBER Provider: Leigha Thurman M.D. :1955 A ge:68 Y S ex:Male Date:09/13/2024 Address:[address] [place] [address], [id number] Subjective: * Chief Complaints: * 1 . Back pain. * Medical History: Objective: * Vitals: Assessment: Plan: * Treatment: * Images: Billing Information: * Visit Code: * Procedure Codes: * Electronic signature of Jeri Thurman MD on 07/10/2025 at 09:58 AM EST Sign off status: Pending * Provider: Leigha Thurman M.D. Date: 0 09/13/2024 Generated for Oj baez/Fay/Donis on: 1 09:58 AM EST
--- OUTSIDE RECORDS SUMMARY | 2024-11-03 09:30 | XMS_ITS ---
Author Organization [facility] Address [address] [facility] [address] [place] [phone] Care Team Providers Care Machinist Mate Name Role Phone Funmi Thurman Primary Care [...] 11.6, gfr 55 Performing Lab: Notes/Report: CLIA: [id number] Rodríguez Cohen MD, [employer]ger Distiller Operator [address] [place] [address] , [address], [place] [address] Test performed by [facility], [facility] Sodium 143 135-145 mmol/L Potassium 3.7 [...] Omeprazole 20 MG TAKE 1 CAPSULE BY [facility] IN THE MORNING 30 MINUTES BEFORE MORNING [...] Status Risk Notes Problem Spinal cord disorder (09690854) Unspecified cord compression (G95.20) Active confirmed Problem Obese class I (827613045266 107) BMI 33.0-33.9,adult (Z68.33) Active confirmed Vital Signs Blood pressure systolic 138 mm Hg 11/04/19 25 Blood pressure diastolic 70 mm Hg 025 Heart Rate 81 /min 11/03/2024 Height 69 in 11/03/2024 Weight 229 lbs 11/03/2024 BMI 33.81 kg/m2 11/03/2024 Encounters Encounter Location Date Provider Diagnosis [facility] [address] [place], [place] [address], [place] [phone] 11/03/2024 Funmi Thurman Renal insufficiency N28.9 ; [...] Name:Funmi Jon , 10/12/2025 01:30:00 PM, [address] [facility] [address], [address], [place], [place], [phone], Progress Notes * Harjit VILLALBADOB:1955 (69 yo M)Acc No.[id number]:11/03/2024 Patient: Ashli ORTEGA Harjit Provider: Leigha Thurman M.D. :1955 A ge:69 Y S ex:Male Date:11/03/2024 Address:[address] [place] [address], [place], [place] Subjective: * Chief Complaints: * 1 . [...] Temp: 97.9, BP: 138/70, HR: 81, Nurse: [facility], Ht: 69, BMI:33.81. * Examination: G eneral [...] cord compression - G95.20 8 . B [place] 33.0-33.9,adult - Z68.33 Plan: * Treatment: Value [...] 55 L >59 - mL/min/1.73m2 * Blanche Ortega 11/07/2024 09:3 9:17 AM > See phone [...] G 2211 Complex e/[place], [address] TRANS CARE MGMT 14 DAY DISCH, 1111F DSCHR MED/CURENT MED MERGE, 3075F SYST BP GE 130 - 139MM HG, 3078F DIAST BP < 80 MM HG * Follow Up: 4 Weeks * Images: Billing Information: * Visit Code: 27647 Office Visit, Est Pt., Level 4. * Procedure Codes: G2211 Complex e/[place]. [address] TRANS CARE MGMT 14 DAY DISCH. 1111F DSCHR MED/CURENT MED MERGE. 3075F SYST BP GE 130 - 139MM HG. 3078F DIAST BP < 80 MM HG. * Electronic signature of Jeri Thurman MD on 07/10/2025 at 09:57 AM EST Sign off status: Pending * Provider: Leigha Thurman M.D. Date: 0 11/03/2024 Generated for Oj baez/Fay/eTransmitting on: 1 09:57 AM EST History and Physical Notes * HPI (History of Present Illness) Category Sub-Category Detail Notes Category Not es HPI Patient is here today for a [facility] of Care Visit. Discharge from the following [...]
--- OUTSIDE RECORDS SUMMARY | 2024-12-01 09:45 | XMS_ITS ---
Author Organization [facility] Address [address] [facility] [address] [facility] [address] [place] [phone] Care Team Providers Care Machine Operator Farmworker Name Role Phone Funmi Thurman Primary Care Provider FUNMI THURMAN Unavailable Unavailable Allergies Allergen (clinical drug ingredient) Drug/Non Drug Allergy documented on EMR Reaction Allergy Type Onset Date Status rosuvastatin Crestor muscle aches Drug Allergy A ctive REASON FOR VISIT 4 weeks Encounters Encounter Location Date Provider Diagnosis [facility] [address] [facility] [address] [facility] [address] [place] [phone] 12/01/2024 Funmi Thurman Plan Of Treatment Next Appt Details Provider Name:Funmi Jon ry, 10/12/2025 01:30:00 PM, [address] [facility] [address] [facility], [address], [place], [phone], Progress Notes * DEEJAYHarjit HAMMONDDOB:1955 (69 yo M)Acc No.[id number]:12/01/2024 Patient: Harjit WEBBER Provider: Leigha Thurman M.D. :1955 A ge:69 Y S ex:Male Date:12/01/2024 Address:[address] [place] [address], [place] Subjective: * Chief Complaints: * [...] 0 12/01/2024 Generated for Oj baez/Fay/Wesleyitting on: 09:57 AM EST History and Physical Notes * HPI (History of Present Illness) Category Sub-Category Detail Notes Category Not es HPI Patient is here today for Pt is here toda y for a 4 week f/u
--- OUTSIDE RECORDS SUMMARY | 2024-12-12 05:45 | XMS_ITS ---
Author Organization [facility] Address [address] [place] [phone] Care Team Providers Care Waist Presser Name Role Phone Funmi Thurman Primary Care Provider [phone] FUNMI THURMAN Unavailable Unavailable Allergies Allergen (clinical [...] Omeprazole 20 MG TAKE 1 CAPSULE BY [facility] IN THE MORNING 30 MINUTES BEFORE MORNING MEAL; Duration: 90 Active Trelegy Ellipta 100-62.5-25 MCG/ACT 1 puff Inhalation Once a day; Duration: 30 days Active Ibuprofen 200 MG 1 tab(s) orally prn Active Problems Problem Type SNOMED Code ICD Code Onset Dates Problem Status W/U Status Risk Notes Problem Leukocytosis (357149510) Leukocytosis, unspecified type (D72.829) Active confirmed Problem Multiple myeloma (773996694) Multiple myeloma not having achieved remission (C90.00) Active confirmed Vital Signs Blood pressure systolic 140 mm Hg 12/13/19 25 Blood pressure diastolic 82 mm Hg 025 Heart Rate 101 /min 12/12/2024 Height 69 in 12/12/2024 Weight 240 lbs 12/12/2024 BMI 35.44 kg/m2 12/12/2024 Encounters Encounter Location Date Provider Diagnosis [facility] [address] [place] [phone] 12/12/2024 [place] Low back pain, unspecified M54.50 ; Leukocytosis, [...] and reviewed. Spoke to Dr. Gibbons at [facility] Oncology today. Patient does indeed have multiple [...] note obtained and reviewed. Spoke to Dr. Gibbosn at [facility] Oncology today. Patient does indeed have multiple myeloma Other Need requests about ECHO request from Next Appt Details Follow Up: via phone to repo rt progress, Reason: Provider Name:Funmi chavira, 10/12/2025 01:30:00 PM, [address], [address], [place], [phone], Progress Notes * Harjit VILLALBADOB:1955 (69 yo M)Acc No.[id number]:12/12/2024 Progress Notes Patient: Harjit WEBBER Provider: Leigha Thurman M.D. :1955 A ge:69 Y S ex:Male Date:12/12/2024 Address:[address] [place] [address], [id number] Subjective: * Chief Complaints: * 1 . [...] and reviewed. Spoke to Dr. Gibbons at [facility] Oncology today. Patient does indeed have multiple myeloma 3. O thers Notes: Need requests about ECHO request from * Procedure Codes: G 2211 Complex e/m visit add on, 1036F TOBACCO NON-USER * Follow Up: v ia phone to report progress * Images: Billing Information: * Visit Code: 26863 Office Visit, Est Pt., Level 4. * Procedure Codes: G2211 Complex e/m visit add on. 1036F TOBACCO NON-USER. * Electronic signature of Jeri Thurman MD on 07/10/2025 at 09:58 AM EST Sign off status: Pending * Provider: Leigha Thurman M.D. Date: 0 12/12/2024 Generated for Oj baez/Fay/Anjanaransmitting on: 1 09:58 AM EST History and Physical Notes * [...]
--- OUTSIDE RECORDS SUMMARY | 2025-02-19 08:45 | XMS_ITS ---
Author Organization [facility] Address [address] [facility] [address] [facility] [address] [place] [phone] Care Team Providers Care Mold Burner Name Role Phone Funmi Thurman Primary Care [...] Provider Diagnosis [facility] [address] [facility] [address] [place] [phone] 02/19/2025 [place] Essential hypertensi on I10 Assessments Encounter Date [...] Name:Funmi Jon ry, 10/12/2025 01:30:00 PM, [address] [facility] 36 [facility], [address], [place], [phone], Progress Notes * DEEJAY HarjitDOB:1955 (69 yo M)Acc No.[id number]:02/19/2025 Progress Notes Patient: Harjit WEBBER Provider: Leigha Thurman M.D. :1955 A ge:69 Y S ex:Male Date:02/19/2025 Address:[address] [place] [address], [phone] Subjective: * Chief Complaints: * [...] * Images: Billing Information: * Visit Code: 89001 Office Visit, Est Pt., Level 3. * Procedure Codes: G2211 Complex e/m visit add on. 1036F TOBACCO NON-USER. G8950 PREHTN/HTN BP DOC INDCD F/U DOC. G8753 MOST RECENT SYSTOLIC BP >= 140MM HG. G8754 MOST RECENT DIASTOLIC BP < 90MM HG. * Electronic signature of Jeri Thurman MD on 07/10/2025 at 09:59 AM EST Sign off status: Pending * Provider: Leigha Thurman M.D. Date: 0 02/19/2025 Generated for Oj baez/Fay/Osmansmitting on: 1 09:59 AM EST History and Physical Notes * [...]
--- OUTSIDE RECORDS SUMMARY | 2025-03-14 08:30 | XMS_ITS ---
Author Organization [facility] Address [address] [facility] [address] [address] [place] [id number] Care Team Providers Care Wire Spiral Binder Name Role Phone Funmi Thurman Primary Care Provider FUNMI THURMAN Unavailable Unavailable Allergies Allergen (clinical drug ingredient) Drug/Non Drug Allergy documented on EMR Reaction Allergy Type Onset Date Status rosuvastatin Crestor muscle aches Drug Allergy A ctive Results Component Value Reference Range Notes P-Basic Metabolic Panel (BMP ) Reviewed date:03/16/2025 01:58:09 PM Interpretation:Normal Performing Lab: Notes/Report: Test performed by [facility] [address] [place] [address] , [address], [place] [address] Rodríguez Cohen MD, Component Lab Tech CLIA: [id number] Sodium 139 135-145 mmol/L Potassium 3.9 3.5-5.3 [...] Encounters Encounter Location Date Provider Diagnosis [facility] [address] [place] [address] [address] [place], [place] [id number] 03/14/2025 Funmi Thurman Essential hypertensi on I10 [...] Name:Funmi Jon , 10/12/2025 01:30:00 PM, [address] [facility] [address] [facility], [address], [place], [place], [id number], Progress Notes * Harjit VILLALBADOB:1955 (69 yo M)Acc No.[id number]:03/14/2025 Patient: Harjit WEBBER Provider: Leigha Thurman M.D. :1955 A ge:69 Y S ex:Male Date:03/14/2025 Address:[address] [place] [address], [id number] Subjective: * Chief Complaints: * 1 . [...] * Images: Billing Information: * Visit Code: 15772 Office Visit, Est Pt., Level 3. * [...] 03/14/2025 Generated for Oj baez/Fay/Donis on: 1 09:59 AM EST History and [...]
--- OUTSIDE RECORDS SUMMARY | 2025-05-28 13:00 | XMS_ITS | Encounter Summary ---
Author Organization [facility] Address [address] [id number] Care Team Providers Care Garage Mechanic Name Role Phone Parrish Thurman MD Primary Care Provider [phone] Reason for Visit * Reason Comments Follow-up Follow-up Encounter Details Date Type Department Care Team ([facility] Contact Info) Description 05/28/2025 1:00 PM EST Office Visit Medical Office Building Surgery Spine & Joint [address] [address], [address] [place] [address] Afshan Bryan MD [address] [place] [address] S/P spinal fusion (Primary Dx); [...] drink first t kiet in the morning (EYE-SPORTS COMMENTATOR) to steady your nerves or to get [...] Start Date Job End Date 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 [...] 12:58 PM EST documented in this encounter Functional Status * BP Answer Date of Assessment Author 160/89 05/28/2025 12:58 PM Kayleigh Pressley * Pulse Answer Date of Assessment Author 87 05/28/2025 12:58 PM Kayleigh Prsesley * SpO2 Answer Date of Assessment Author 97 05/28/2025 12:58 PM Kayleigh Pressley * Height Answer Date of Assessment Author 68 05/28/2025 12:58 PM Kayleigh Pressley * Weight Answer Date of Assessment Author 4024.72 05/28/2025 12:58 PM Kayleigh Pressley * BMI (Calculated) Answer Date of Assessment Author 38.3 05/28/2025 12:58 PM Kayleigh Pressley * Percent Excess Weight Loss Answer Date of Assessment Author 0 05/28/2025 12:58 PM Kayleigh Pressley * Total Weight Change Percent Answer Date of Assessment Author 2222 05/28/2025 12:58 PM Kayleigh Pressley * Weight Change Since Preop Answer Date of Assessment Author 114.07 05/28/2025 12:58 PM Kayleigh Pressley * Initial Excess Weight Answer Date of Assessment Author -69.85 05/28/2025 12:58 PM Kayleigh Pressley * IBW in lbs (Bariatric) Answer Date of Assessment Author 154 05/28/2025 12:58 PM EST Kayleigh Silva * Weight Change Since Last Visit Answer Date of Assessment Author 114.07 05/28/2025 12:58 PM EST Germaine Silvanassoumya * IBW in kg (Bariatric) Answer Date of Assessment Author 69.85 05/28/2025 12:58 PM EST Kayleigh Silva * Percent of IBW Answer Date of Assessment Author 5,761.95 05/28/2025 12:58 PM Kayleigh Pressley * EBW (kg) Answer Date of Assessment Author 4,022.74 05/28/2025 12:58 PM EST Kayleigh Silva * EBW (lbs) Answer Date of Assessment Author 4,015.1 05/28/2025 12:58 PM Kayleigh Pressley * Weight Change 24 hrs Answer Date of Assessment Author 3.9 05/28/2025 12:58 PM EST Germaine Silvanasia * BSA (Calculated - sq m) Answer Date of Assessment Author 2.34 05/28/2025 12:58 PM EST Kayleigh Silva * BMI (Calculated) Answer Date of Assessment Author 38.26 05/28/2025 12:58 PM EST Germaine Silvanasia * IBW/kg (Calculated) Male Answer Date of Assessment Author 68.4 05/28/2025 12:58 PM EST Kayleigh Silva * IBW/kg (Calculated) Female Answer Date of Assessment Author 63.9 05/28/2025 12:58 PM EST Germaine Silvanasia * IBW/kg (Calculated) Answer Date of Assessment Author 68.4 05/28/2025 12:58 PM Kayleigh Pressley * Weight in (lb) to have BMI = 25 Answer Date of Assessment Author 164.1 05/28/2025 12:58 PM Kayleigh Pressley * BMI (Calculated) Answer Date of Assessment Author 38.3 05/28/2025 12:58 PM Kayleigh Pressley * Percent Excess Weight Loss Answer Date of Assessment Author 0 05/28/2025 12:58 PM Kayleigh Pressley * Weight Change Since Preop Answer Date of Assessment Author 114.1 05/28/2025 12:58 PM Kayleigh Pressley * Initial Excess Weight Answer Date of Assessment Author -69.85 05/28/2025 12:58 PM EST Germaine Silvanasia * IBW in kg (Bariatric) Answer Date of Assessment Author 69.85 05/28/2025 12:58 PM EST Germaine Silvanasia * IBW in lb (Bariatric) Answer Date of Assessment Author 154 05/28/2025 12:58 PM EST Germaine Silvanasia * Weight Change Since Last Visit Answer Date of Assessment Author 114.1 05/28/2025 12:58 PM EST Germaine Silvanassoumya * Percent of IBW Answer Date of Assessment Author 163.34 05/28/2025 12:58 PM EST Germaine Silvanasia * EBW (kg) Answer Date of Assessment Author 44.22 05/28/2025 12:58 PM EST Germaine Silvanassoumya * EBW (lb) Answer Date of Assessment Author 97.55 05/28/2025 12:58 PM EST Germaine Silvanassoumya * Difference in Weight Since Last Visit Answer Date of Assessment Author 3.9 05/28/2025 12:58 PM EST Germaine Silvanassoumya * IBW/kg (Calculated) Answer Date of Assessment Author 68.4 05/28/2025 12:58 PM EST Germaine Silvanassoumya * Adult Low Range Vt 6mL/kg Answer Date of Assessment Author 410.4 05/28/2025 12:58 PM EST Germaine Silvanassoumya * Adult Moderate Range Vt 8mL/kg Answer Date of Assessment Author 547.2 05/28/2025 12:58 PM EST Germaine Silvanassoumya * Adult High Range Vt 10mL/kg Answer Date of Assessment Author 684 05/28/2025 12:58 PM EST Germaine Silvanassoumya * Pain Assessment Question Answer Date of Assessment Author Pain Location Back 05/28/2025 12:58 PM EST Pavel therGermaine meltonnassoumya Pain Orientation Mid;Lower 05/28/2025 12:58 PM EST Germaine Silvanassoumya Pain Descriptors Sore 05/28/2025 12:58 PM EST Ricardo Ginassoumya Pain Onset Gradual 05/28/2025 12:58 PM EST Willsi hersGermainenassoumya Pain Frequency Intermittent 05/28/2025 12:58 PM EST Miki ithGermaine chamorronassoumya Pain Assessment 0-10 05/28/2025 12:58 PM EST S frenchs, Ginasia Pain Score 4 05/28/2025 12:58 PM EST Willis hers, Ginasia * BP Answer Date of Assessment Author 160/89 05/28/2025 12:58 PM EST [place] Ginasia * Pulse Answer Date of Assessment Author 87 05/28/2025 12:58 PM EST Kalyeigh Silva * SpO2 Answer Date of Assessment Author 97 05/28/2025 12:58 PM EST Kayleigh Silva * Height Answer Date of Assessment Author 68 05/28/2025 12:58 PM EST Kayleigh Silva * Weight Answer Date of Assessment Author 4024.72 05/28/2025 12:58 PM EST Kayleigh Silva * BSA (Calculated - sq m) Answer Date of Assessment Author 2.34 05/28/2025 12:58 PM EST Kayleigh Silva * BMI (Calculated) Answer Date of Assessment Author 38.26 05/28/2025 12:58 PM EST Kayleigh Silva * Weight in (lb) to have BMI = 25 Answer Date of Assessment Author 164.1 05/28/2025 12:58 PM EST Germaine Silvanassoumya * Pain Assessment Question Answer Date of Assessment Author Pain Location Back 05/28/2025 12:58 PM EST Pavel thers, Ginasia Pain Orientation Mid;Lower 05/28/2025 12:58 PM EST Ricardo Ginassoumya Pain Descriptors Sore 05/28/2025 12:58 PM EST Kayleigh Silva Pain Onset Gradual 05/28/2025 12:58 PM EST Willis hers, Ginasia Pain Frequency Intermittent 05/28/2025 12:58 PM EST Miki ithers, Ginasia Pain Score 4 05/28/2025 12:58 PM EST Willis hers, Ginasia documented as of this encounter Mental Status * BP Answer Entry Date Author 160/89 05/28/2025 12:58 PM EST Kayleigh Silva * Pulse Answer Entry Date Author 87 05/28/2025 12:58 PM EST Kayleigh Silva * SpO2 Answer Entry Date Author 97 05/28/2025 12:58 PM EST Kayleigh Silva * Height Answer Entry Date Author 68 05/28/2025 12:58 PM EST Kayleigh Silva * Weight Answer Entry Date Author 4024.72 05/28/2025 12:58 PM EST Germaine Silvanasia * BMI (Calculated) Answer Entry Date Author 38.3 05/28/2025 12:58 PM EST Germaine Silvanasia * Percent Excess Weight Loss Answer Entry Date Author 0 05/28/2025 12:58 PM EST Germaine Silvanasia * Total Weight Change Percent Answer Entry Date Author 2222 05/28/2025 12:58 PM EST Germaine Silvanasia * Weight Change Since Preop Answer Entry Date Author 114.07 05/28/2025 12:58 PM EST Gremaine Silvanasia * Initial Excess Weight Answer Entry Date Author -69.85 05/28/2025 12:58 PM EST Kayleigh Silva * IBW in lbs (Bariatric) Answer Entry Date Author 154 05/28/2025 12:58 PM EST Kayleigh Silva * Weight Change Since Last Visit Answer Entry Date Author 114.07 05/28/2025 12:58 PM Kayleigh Pressley * IBW in kg (Bariatric) Answer Entry Date Author 69.85 05/28/2025 12:58 PM Germaine Pressleynassoumya * Percent of IBW Answer Entry Date Author 5,761.95 05/28/2025 12:58 PM Kayleigh Pressley * EBW (kg) Answer Entry Date Author 4,022.74 05/28/2025 12:58 PM Germaine Pressleynassoumya * EBW (lbs) Answer Entry Date Author 4,015.1 05/28/2025 12:58 PM Kayleigh Pressley * Weight Change 24 hrs Answer Entry Date Author 3.9 05/28/2025 12:58 PM Germaine Pressleynassoumya * BSA (Calculated - sq m) Answer Entry Date Author 2.34 05/28/2025 12:58 PM Kayleigh Pressley * BMI (Calculated) Answer Entry Date Author 38.26 05/28/2025 12:58 PM Germaine Pressleynassoumya * IBW/kg (Calculated) Male Answer Entry Date Author 68.4 05/28/2025 12:58 PM Kayleigh Pressley * IBW/kg (Calculated) Female Answer Entry Date Author 63.9 05/28/2025 12:58 PM EST Germaine Silvanasia * IBW/kg (Calculated) Answer Entry Date Author 68.4 05/28/2025 12:58 PM EST Germaine Silvanassoumya * Restart Pain Assessment Timer Answer Entry Date Author Yes 05/28/2025 12:58 PM EST Germaine Silvanasia * Weight in (lb) to have BMI = 25 Answer Entry Date Author 164.1 05/28/2025 12:58 PM EST Germaine Silvanassoumya * BMI (Calculated) Answer Entry Date Author 38.3 05/28/2025 12:58 PM EST Germaine Silvanasia * Percent Excess Weight Loss Answer Entry Date Author 0 05/28/2025 12:58 PM EST Kayleigh Silva * Weight Change Since Preop Answer Entry Date Author 114.1 05/28/2025 12:58 PM EST Germaine Silvanassoumya * Initial Excess Weight Answer Entry Date Author -69.85 05/28/2025 12:58 PM Kayleigh Pressley * IBW in kg (Bariatric) Answer Entry Date Author 69.85 05/28/2025 12:58 PM EST Germaine Silvanassoumya * IBW in lb (Bariatric) Answer Entry Date Author 154 05/28/2025 12:58 PM EST Kayleigh Silva * Weight Change Since Last Visit Answer Entry Date Author 114.1 05/28/2025 12:58 PM Germaine Pressleynassoumya * Percent of IBW Answer Entry Date Author 163.34 05/28/2025 12:58 PM Kayleigh Pressley * EBW (kg) Answer Entry Date Author 44.22 05/28/2025 12:58 PM Germaine Pressleynassoumya * EBW (lb) Answer Entry Date Author 97.55 05/28/2025 12:58 PM EST Germaine Silvanassoumya * Difference in Weight Since Last Visit Answer Entry Date Author 3.9 05/28/2025 12:58 PM EST Germaine Silvanasia * IBW/kg (Calculated) Answer Entry Date Author 68.4 05/28/2025 12:58 PM Kayleigh Pressley * Adult Low Range Vt 6mL/kg Answer Entry Date Author 410.4 05/28/2025 12:58 PM EST [place] , Ginasia * Adult Moderate Range Vt 8mL/kg Answer Entry Date Author 547.2 05/28/2025 12:58 PM EST [place] , Ginasia * Adult High Range Vt 10mL/kg Answer Entry Date Author 684 05/28/2025 12:58 PM EST [place] , Ginasia * Pain Assessment Question Answer Entry Date Author Pain Location Back 05/28/2025 12:58 PM EST Smi thers, Ginasia Pain Orientation Mid;Lower 05/28/2025 12:58 PM EST [place], Ginasia Pain Descriptors Sore 05/28/2025 12:58 PM EST [place], Ginasia Pain Onset Gradual 05/28/2025 12:58 PM EST Willis hers, Ginasia Pain Frequency Intermittent 05/28/2025 12:58 PM EST Sm ithers, Ginasia Pain Score 4 05/28/2025 12:58 PM EST Willis hers, Ginasia documented in this encounter Miscellaneous Notes * [...] Social History Occupational History 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 Tobacco Use Smoking status: [...] disease) Hypertension Joint pain Monoclonal gammopathy IgG [place] Multiple myeloma 10/27/2024 [place] [employer] restricted Sleep apnea inconsistent diagnosis [...] tablet by mouth daily. 30 tablet 11 Aqbsqzssneu-Yuxvnkymx-Fcmqip (Trelegy Ellipta) 100-62.5-25 MCG/ACT aerosol powder Inhale [...] Building Surgery Spine & Joint [address], [address] [place] [address] Afshan Bryan MD [address] [place] [address] documented as of this encounter [...] anterolisthesis at L3-L4 and minimal posterior subluxation [id number] and T12-L1. CRITICAL RESULT: No. COMMUNICATION: Per [...] documented as of this encounter Care Teams Garage Mechanic Relationship Specialty [place] [id number] PCP - General 10/19/24 documented as of this encounter
--- OUTSIDE RECORDS SUMMARY | 2025-05-28 13:15 | XMS_ITS | Encounter Summary ---
Author Organization Healthcare Address [address] 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 [...] needed for severe pain. 30 tablet 05/28/2025 polyethylene glycol (MiraLax) 17 g packet Take 17 g by mouth daily as needed (constipation) . 30 each 12/08/2024 potassium chloride CR (Klor-Con M20) 20 MEQ ER tablet TAKE 1 TABLET BY MOUTH TWICE DAILY . SWALLOW WHOLE, DO NOT CRUSH, SPLIT, OR CHEW. 60 tablet 1 05/15/2025 prochlorperazine (Compazine) 10 MG tabletIndications:Mu ltiple myeloma [...] Building Surgery Spine & Joint [address] [facility], [address] [place] [address] Afshan Bryan MD [address] [facility] [address] [place] [address] documented as of this encounter [...] anterolisthesis at L3-L4 and minimal posterior subluxation [id number] and T12-L1. CRITICAL RESULT: No. COMMUNICATION: Per [...] documented as of this encounter Care Teams Diving Judge Relationship Specialty Start Date End Date Parrish Thurman MD [id number] PCP - General 10/19/24 documented as of this encounter
--- OUTSIDE RECORDS SUMMARY | 2025-06-13 09:00 | XMS_ITS ---
Author Organization Ellen Address [address] [facility] [address] [place] [phone] Care Team Providers Care Locomotive Boilermaker Name Role Phone Funmi Thurman Primary Care [...] Encounter Location Date Provider Diagnosis AL-Jatin [address] [facility] [address] [place] [id number] 06/13/2025 Funmi Thurman Essential hypertensi on I10 [...] Provider Name:Funmi chavira, 10/12/2025 01:30:00 PM, [address] [facility] [address], [address], [place], [id number], Progress Notes * DEEJAY HarjitDOB:1955 (69 yo M)Acc No.[id number]:06/13/2025 Progress Notes Patient: Harjit WEBBER Provider: Leigha Thurman M.D. :1955 A ge:69 Y S ex:Male Date:06/13/2025 Address:[address] [place] [address], [id number] Subjective: * Chief Complaints: * 1 . [...] * Images: Billing Information: * Visit Code: 03220 Office Visit, Est Pt., Level 3. * Procedure Codes: G2211 Complex e/m visit add on. * Electronic signature of Jeri Thurman MD on 07/10/2025 at 09:59 AM EST Sign off status: Pending * Provider: Leigha Thurman M.D. Date: 08/14/2024 Generated for Oj baez/Fay/eTransmitting on: 09:59 AM EST History and Physical Notes [...]
--- OUTSIDE RECORDS SUMMARY | 2025-07-10 09:58 | XMS_ITS ---
Author Organization [facility] Address [address] 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
--- OUTSIDE RECORDS SUMMARY | 2025-07-10 09:58 | XMS_ITS | Encounter Summary ---
Author Organization [employer] ([place], [place], [place], [place], [place]) Address [address] [place] [address] Care Team Providers Care Energy Assistant Name Role Phone Unavailable Primary Care Provider Unavailabl e Encounter Details Date Type Department Care Team (Late st Contact Info) Description 08/30/2018 Transcribed Document [facility] [place] Medicine [address] [place] [address] ProviderTree MD [address] [place] [id number] Social History Tobacco Use Types Packs/Day Years [...] Tree Alonso MD - 08/30/2018 10:15 AM HAND TUBE WINDER Procedural Documentation Entered On: 08/30/2018 10:21 EST Performed On: 08/30/2018 10:15 EST by TANA SAENZ RN Procedure Documentation Procedure Case Attendee : BAKARI SANCHEZ MD Procedure Case Attendee Role : Anesthesiologist Procedure Case Attendee Role 2 : photoengraving finisher Case Attendee 2 : TANA SAENZ RN Procedure Case Attendee Role 3 : photoengraving finisher Case Attendee 3 : DESEAN GUILLEN RN [...] 08/30/2018 10:22 EST Electronically signed by Amira [facility] Conversion Mortgage Banker Cerner at 10/27/2022 8:27 PM CDT documented in this encounter Plan of Treatment Not on file documented as of this encounter Visit Diagnoses Not on filedocumented in this encounter
--- OUTSIDE RECORDS SUMMARY | 2025-07-10 09:58 | XMS_ITS | Encounter Summary ---
Author Organization [employer] ([place], [place], [place], [place], [place]) Address [address] [place] [address] Care Team Providers Care Speech And Language Specialist Name Role Phone Unavailable Primary Care Provider Unavailabl e Encounter Details Date Type Department Care Team (Late st Contact Info) Description 08/30/2018 Transcribed Document [facility] [place] [address] [place] [address] ProviderTree MD [address] [place] [address] Social History Tobacco Use Types [...] Tree Alonso MD - 08/30/2018 12:44 PM ANGLE SHEARER [facility] Main OR IntraOp Summary Primary Physician: BEATRIZ RAWLS MD-ORT Finalized Date/Time: 08/31/18 09:28:34 Pt. Name: PETRA VILLALBA RENETTA /Sex: 1955 Male Med Rec #: [id number] Physician: BEATRIZ RAWLS MD-ORT Financial #: [id number] Pt. Type: O Room/Bed: 648/1 Admit/Disch: 08/30/18 06:24:00 - Institution: [facility] IntraOp Case Attendance Entry 1 Entry 2 Entry 3 Case Attendee BEATRIZ RAWLS MD-ORT KESHEIMER, DAVID K, PA Summers, Jennifer, [employer] Pref Card Builder Role Performed Surgeon/Proceduralist, Physician cancer genetics assistant Scrub, First First Time In 08/30/18 [...] Maynard, RN Gabriela Fabian, RN LARRY ADAIR, ALUMINUM MOLDING MACHINE OPERATOR Role Performed Photovoltaic Testing Technician, First Photovoltaic Testing Technician, Second ALUMINUM MOLDING MACHINE OPERATOR/Nurse Oil Paint Shader Time In 08/30/18 12:12:00 08/30/18 12:12:00 08/30/18 [...] ANAHI ALAS MD OTHER, ATTENDEE Grady Tate, ALUMINUM MOLDING MACHINE OPERATOR Role Performed Anesthesiologist Vendor ALUMINUM MOLDING MACHINE OPERATOR/Nurse Oil Paint Shader Time In 08/30/18 12:12:00 08/30/18 12:12:00 08/30/18 13:50:00 Time Out 08/30/18 14:50:00 08/30/18 14:50:00 08/30/18 14:50:00 Procedure Knee Total Joint Knee Total Joint Knee Total Joint Replacement(Right) Replacement(Right) Replacement(Right) Other Attendee tamar tan Superficial Wound Closed By: Last Modified By: Tana Maynard, RN Tana Maynard, RN Tana Maynard RN 08/30/18 14:50:09 08/30/18 11:46:42 08/30/18 14:50:09 [facility] IntraOp Case Attendance Audit 08/30/18 14:50:09 Mattress Weaver: HAMILTGM Modifier: HAMILTGM 1 <+> Time Out [...] Procedure Knee Total Joint Replacement(Right) 08/30/18 14:02:03 Mattress Weaver: HAMILTGM Modifier: HAMILTGM 1 <+> Time In [...] <+> 9 Time In <+> 9 Procedure [facility] IntraOp Case Times Entry 1 Patient In Room Time 08/30/18 12:12:00 Out Room Time 08/30/18 14:50:00 Anesthesia Start Time 08/30/18 12:12:00 Stop Time 08/30/18 14:50:00 Anesthesia Ready 08/30/18 12:12:00 Surgery / Procedure Times Start Time 08/30/18 12:44:00 Stop Time 08/30/18 14:36:00 Last Modified By: Tana Maynard RN 08/30/18 12:45:24 [facility] IntraOp Case Times Audit 08/30/18 14:50:07 Mattress Weaver: HAMILTGM Modifier: HAMILTGM <+> 1 Out Room Time <+> 1 Stop Time 08/30/18 14:36:41 Mattress Weaver: HAMILTGM Modifier: HAMILTGM <+> 1 Stop Time 08/30/18 12:45:28 Mattress Weaver: HAMILTGM Modifier: HAMILTGM 1 <*> Start Time 08/30/18 12:45:00 [facility] IntraOp Cautery Entry 1 ESU Identification Cautery Type Monopolar ESU ID Number [id number] ID Type Hospital Number Cautery Settings Cut Setting 50 Coag Setting 50 ESU Grounding Pad Ground Pad Type Adult Grounding Pad Site Right Flank Grounding Pad Tana Maynard RN Applied By Grounding Pad Site Warm, dry and intact Skin Condition Before Cautery Grounding Pad Site Unchanged Skin Condition After Cautery Last Modified By: Tana Maynard RN 08/30/18 11:47:37 [facility] IntraOp Communication Entry 1 Entry 2 Entry 3 Communication To Family/Significant other Other Family/Significant other Comment start report close Communication By Gabriela Fabian, Gabriela Ty RN Hamilton, Gina M, RN Date and Time 08/30/18 12:38:00 08/30/18 14:18:00 08/30/18 14:40:00 Last Modified By: Tana Maynard RN Hamilton, Gina M, RN Hamilton, Gina M, RN 08/30/18 12:46:33 08/30/18 14:18:15 08/30/18 14:50:38 [facility] IntraOp Communication Audit 08/30/18 14:50:38 Mattress Weaver: HAMILTGM Modifier: HAMILTGM <+> 3 Communication By <+> 3 Date and Time <+> 3 Communication To <+> 3 Comment 08/30/18 14:18:15 Mattress Weaver: HAMILTGM Modifier: HAMILTGM <+> 2 Communication By <+> 2 Date and Time <+> 2 Communication To <+> 2 Comment [facility] IntraOp Counts Verification Entry 1 Entry 2 [...] Performed By Shaneka Oakley Summers, Jennifer, (Scrub) [employer] Pref Card Builder [employer] Pref Card Builder Count Performed By Tana Maynard RN Hull, Tamara, RN (RN) Last Modified By: Tana Maynard RN Hamilton, Gina M, RN 08/30/18 11:47:51 08/30/18 14:11:48 [facility] IntraOp Counts Verification Audit 08/30/18 14:11:48 Mattress Weaver: HAMILTGM Modifier: HAMILTGM <+> 2 Procedure <+> 2 Count Type <+> 2 Counts Verification Sequence <+> 2 Count Results <+> 2 Count Performed By (Scrub) <+> 2 Count Performed By (RN) [facility] IntraOp Counts Final Entry 1 Procedure Knee Total Joint Replacement(Right) Final Count Info Count Type Sponge, Sharps, Miscellaneous Counts Verification Skin Closure/end of Sequence procedure Count Results Correct, surgeon notified Counts Performed By Count Performed By Shaneka Oakley, (Scrub) [employer] Pref Card Builder Count Performed By Tana Maynard RN (RN) Last Modified By: Tana Maynard RN 08/30/18 11:47:59 [facility] IntraOp Counts Final Audit 08/30/18 14:18:03 Mattress Weaver: HAMILTGM Modifier: HAMILTGM 1 <*> Procedure Knee Total Joint Replacement(Right) 1 <+> Count Performed By (Scrub) 1 <+> Count Performed By (RN) [facility] IntraOp Cultures and Spec Summary Entry 1 Cultrures and Specimens Specimen Ordered: Yes Specimens Types Pathology Specimen(s) Labeled Pathology and Sent to Last Modified By: Tana Maynard RN 08/30/18 11:48:16 General Comments: a. right knee bone fragments and tissue [facility] IntraOp Departure from OR Entry 1 Integumentary Assessment Integumentary WDL Assessment WDL Transfer/Handoff Transfer to PACU Phase I Handoff Method Phone call Post-op Transport Stretcher/Gurney Via Patient Transport BEATRIZ PEACE PA, Accompanied by LARRY AADIR CRNA Last Modified By: Tana Maynard RN 08/30/18 11:48:34 [facility] IntraOp Dressing and Packing Entry 1 Type Dressing Location opsite Wound Dressing Item Skin Closure Glue, Joe Supplemental Limb immobilizer Applications Applied By BEATRIZ RAWLS MD-ORT Other Comments aquacel. Last Modified By: Tana Maynard RN 08/30/18 11:49:15 [facility] IntraOp Fire Risk Assessment Entry 1 Fire Info Surgical Site or 0- No Incision Above the Xyphoid Open O2 Source 0- No (Mask or Cannula) Available Ignition 1- Yes (ESU, Laser, Light Source) Fire Risk 1 Assessment Score Fire Score Fire Risk Yes Assessment Complete Fire Risk Tana aMynard RN Assessment Verified By Fire Risk 08/30/18 11:49:00 Assessment Verified Date/Time Fire Risk Standard Fire Yes Safety Precautions Followed Last Modified By: Tana Maynard RN 08/30/18 11:49:27 [facility] IntraOp General Case Filemaker Developer 1 Case Information OR OR 04 [facility] Case Level 1 Room Verified Yes Wound Class I - Clean Specialty SN Orthopedic Anesthesia Type General ASA Class 2 Diagnosis Preop Diagnosis oa - right knee Postop Same As Preop No Postop Diagnosis see doctor's post op notes Last Modified By: Tana Maynard RN 08/30/18 12:46:14 [facility] IntraOp General Case Data Audit 08/30/18 12:46:14 Mattress Weaver: JOCELIN Modifier: OLEGARIOILTGM <+> 1 ASA Class [facility] IntraOp Implant Log Entry 1 Entry 2 Entry 3 Type Implant (Synthetic) Implant (Synthetic) Implant (Synthetic) Implant Log Implant Type Bone Cement Hardware Hardware Tissue Implant Type Implant CEMENT BONE SURG SMPLX TIB CEMENTED STEM SZ F PATELLA RAY PERSONA Identification P [id number] Description Implant Quantity 2 1 1 Implant Site opsite opsite opsite Implant Identification Model Number Implant Identification Serial Number Implant [id number] Identification Lot Number Implant An:[place] Hernandez:Hernandez Us Hernandez:Hernandez Us Identification Orthopaedics Cosmetic Sales Name: Implant [id number] Identification Catalog Number Implant Size Implant Has an Yes Yes Yes Expiration Date Implant Expiration 11/08/20 03/11/28 09/09/23 Date Wasted Radioactive Material Time Implanted Tissue Implant Continue for Tissue Implant Documentation Tissue Identification Number Graft Prep Per Cosmetic Sales Instructions: Tissue Preparation Method: Reconstitution Solution: Reconstitution Solution Lot Number Reconstitution Solution Expiration Date: Thawing Solution Thawing Solution Lot Number Thawing Solution Expiration Date Preparation Materials, Other Preparation Materials, Other Lot Number Preparation Materials, Other Expiration Date Tissue Prepared/Processed By Cosmetic Sales Paperwork Completed Implant Type Comment Last Modified By: Tana Maynard RN Hamilton, Gina M, Tana Avila RN 08/30/18 11:50:26 08/30/18 13:50:14 08/30/18 13:50:14 Entry 4 Entry 5 Type Implant (Synthetic) Implant (Synthetic) Implant Log Implant Type Hardware Hardware Tissue Implant Type Implant IMP KNEE FEM PSN CR CMT PSN ART SURF MC 10 Identification [id number] Description Implant Quantity 1 1 Implant Site opsite opsite Implant Identification Model Number Implant Identification Serial Number Implant [id number] Identification Lot Number Implant Hernandez:Hernandez Us Hernandez:Hernandez Us Identification Cosmetic Sales Name: Implant [id number] Identification Catalog Number Implant Size Implant Has an Yes Yes Expiration Date Implant Expiration 10/10/27 04/10/23 Date Wasted Radioactive Material Time Implanted Tissue Implant Continue for Tissue Implant Documentation Tissue Identification Number Graft Prep Per Cosmetic Sales Instructions: Tissue Preparation Method: Reconstitution Solution: Reconstitution Solution Lot Number Reconstitution Solution Expiration Date: Thawing Solution Thawing Solution Lot Number Thawing Solution Expiration Date Preparation Materials, Other Preparation Materials, Other Lot Number Preparation Materials, Other Expiration Date Tissue Prepared/Processed By Cosmetic Sales Paperwork Completed Implant Type Comment Last Modified By: Tana Maynard RN Hamilton, Gina M, RN 08/30/18 13:50:14 08/30/18 14:04:53 [facility] IntraOp Implant Log Audit 08/30/18 14:04:53 Mattress Weaver: JOCELIN Modifier: BEVERLYTGM <+> 5 Implant Identification Description <+> 5 Implant Identification Lot Number <+> 5 Implant Identification Cosmetic Sales Name: <+> 5 Implant Expiration Date <+> 5 Implant Site <+> 5 Implant Quantity <+> 5 Implant Identification Catalog Number <+> 5 Implant Type <+> 5 Implant Has an Expiration Date <+> 5 Type 08/30/18 13:50:14 Mattress Weaver: JOCELIN Modifier: BEVERLYTGM <+> 2 Implant Identification Description <+> 2 Implant Identification Lot Number <+> 2 Implant Identification Cosmetic Sales Name: <+> 2 Implant Expiration Date <+> 2 Implant Site <+> 2 Implant Quantity <+> 2 Implant Identification Catalog Number <+> 2 Implant Type <+> 2 Implant Has an Expiration Date <+> 2 Type <+> 3 Implant Identification Description <+> 3 Implant Identification Lot Number <+> 3 Implant Identification Cosmetic Sales Name: <+> 3 Implant Expiration Date <+> 3 Implant Site <+> 3 Implant Quantity <+> 3 Implant Identification Catalog Number <+> 3 Implant Type <+> 3 Implant Has an Expiration Date <+> 3 Type <+> 4 Implant Identification Description <+> 4 Implant Identification Lot Number <+> 4 Implant Identification Cosmetic Sales Name: <+> 4 Implant Expiration Date <+> 4 Implant Site <+> 4 Implant Quantity <+> 4 Implant Identification Catalog Number <+> 4 Implant Type <+> 4 Implant Has an Expiration Date <+> 4 Type 08/30/18 13:42:36 Mattress Weaver: JOCELIN Modifier: BEVERLYTGLuis 1 <*> Implant Identification Description CEMENT BONE SURG SMPLX P [id number] <*> Implant Quantity 1 [facility] IntraOp Intraoperative Assessment Entry 1 Handoff Method [...] Modified By: Tana Maynard RN 08/30/18 11:50:42 [facility] IntraOp Intraoperative Equipment Entry 1 Type Equipment [...] Modified By: Tana Maynard RN 08/30/18 11:51:13 [facility] IntraOp Medication Admin Entry 1 Medication/Irrigant NORMAL SALINE Route of irrigation Administration Dose Dose 2000 Unit of Measure ml Volume 50ml betadine added Administered By BEATRIZ RAWLS MD-ORT Procedure Irrigation Last Modified By: Tana Maynard RN 08/30/18 11:51:46 [facility] IntraOp Patient Positioning Entry 1 Procedure Knee [...] Modified By: Tana Maynard RN 08/30/18 11:53:17 [facility] IntraOp Sign In Entry 1 Patient, Site, [...] Modified By: Tana Maynard RN 08/30/18 12:45:43 [facility] IntraOp Sign Out Entry 1 RN Confirmation [...] Modified By: Tana Maynard RN 08/30/18 11:53:41 [facility] IntraOp Sign Out Audit 08/30/18 14:50:17 Mattress Weaver: HAMILTGM Modifier: HAMILTGM <+> 1 RN Sign Out Signature Date/Time [facility] IntraOp Skin Prep Entry 1 Procedure Knee Total Joint Replacement(Right) Prescribed N/A Pre-Surgical Prep Completed Prep Area right thigh to toes circumferentially Intraop Prep Integumentary WDL Assessment WDL Prep Agents Chloraprep Prep by Tana Maynard RN Hair Removal Methods No hair removal performed Last Modified By: Tana Maynard RN 08/30/18 11:54:06 [facility] IntraOp Surgical Procedures Entry 1 Procedure Knee Total Joint Replacement Modifiers Right Additional RT TOTAL KNEE Procedure ARTHROPLASTY Description Primary Procedure Yes Primary Surgeon BEATRIZ RAWLS MD-ORT Start 08/30/18 12:44:00 Stop 08/30/18 14:36:00 Anesthesia Type General Specialty SN Orthopedic Wound Class I - Clean Last Modified By: Tana Maynard RN 08/30/18 11:54:12 [facility] IntraOp Surgical Procedures Audit 08/30/18 14:36:43 Mattress Weaver: HAMILTGM Modifier: HAMILTGM <+> 1 Stop 08/30/18 12:46:05 Mattress Weaver: HAMILTGM Modifier: HAMILTGM <+> 1 Start [facility] IntraOp Temp Regulation Devices Entry 1 Temp Regulation Temperature Warm blankets Regulation Device Temperature Upper body Regulation Site Temperature LARRY ADAIR CRNA Regulation Device Applied by Temperature bairhugger available Regulation Comment Last Modified By: Tana Maynard RN 08/30/18 11:54:34 [facility] IntraOP Time Out Entry 1 Procedure to [...] Modified By: Tana Maynard RN 08/30/18 12:45:54 [facility] IntraOP Time Out Audit 08/30/18 12:45:54 Mattress Weaver: JOCELIN Modifier: HAMILTGM 1 <+> Time Out Pause Time 1 <*> Procedure to be Performed Knee Total Joint Replacement(Right) [facility] IntraOp Tourniquet Entry 1 Type Pneumatic Serial/Unit Number [id number] Setting 350 mmHg Pheumatic Yes Tourniquet Checked Per Protocol Size 34 inches Placement Thigh, right upper Skin Protection - Yes Padded Under Cuff Applied By BEATRIZ RAWLS MD-ORT Removed By BEATRIZ PEACE PA Times Start Time 08/30/18 12:44:00 Stop Time 08/30/18 14:36:00 Total Time 111 calculated manually (Mins) Last Modified By: Tana Maynard RN 08/30/18 14:36:38 [facility] IntraOp Tourniquet Audit 08/30/18 14:36:38 Mattress Weaver: OLEGARIOILTGM Modifier: HAMILTGM 1 <*> Setting 300 mmHg 1 <+> Total Time calculated manually (Mins) 1 <+> Stop Time 08/30/18 12:46:04 Mattress Weaver: OLEGARIOILTGM Modifier: HAMILTGM <+> 1 Start Time [...]
--- OUTSIDE RECORDS SUMMARY | 2025-07-10 09:58 | XMS_ITS | Encounter Summary ---
Author Organization [employer] ([place], [place], [place], [place], [place]) Address [address] [place] [address] Care Team Providers Care Shop Fitter Name Role Phone Unavailable Primary Care Provider Unavailabl e Encounter Details Date Type Department Care Team (Late st Contact Info) Description 08/30/2018 Transcribed Document [facility] [place] [address] [place] [address] ProviderTree MD [address], [place] [address] Social History Tobacco Use Types Packs/Day Years [...] Tree Alonso MD - 08/30/2018 7:00 AM MANAGER TRAVEL Pain Assessment Entered On: 08/30/2018 15:06 EST [...]
--- OUTSIDE RECORDS SUMMARY | 2025-07-10 09:58 | XMS_ITS | Encounter Summary ---
Author Organization [employer] ([place], [place], [place], [place], [place]) Address [address] [place] [address] Care Team Providers Care Coating Machine Operator Helper Name Role Phone Unavailable Primary Care Provider Unavailabl e Encounter Details Date Type Department Care Team (Late st Contact Info) Description 08/30/2018 Transcribed Document [facility] [place] [facility] [place] [address] ProviderTree MD [facility] [place], [place] [id number] Social History Tobacco Use Types Packs/Day Years [...] Tree Alonso MD - 08/30/2018 6:00 AM GENERATING PLANT SUPERINTENDENT Patient: PETRA VILLALBA Age: 62 years Sex: [...] Refill(s) fluticasone 50 mcg/inh nasal spray: 1 [place], Nostrils Both, Daily, 0 Refill(s) hydroCHLOROthiazide-triamterene 25 [...] Daily fluticasone 50 mcg/inh nasal spray 1 [place], Nostrils Both, Daily hydroCHLOROthiazide-triamterene 25 mg-37.5 mg [...] All Problems Wears glasses / SNOMED CT 387690931 / Confirmed Sinusitis / SNOMED CT 98948164 / Confirmed Hyperlipidemia / SNOMED CT 18762328 / Confirmed High blood pressure / SNOMED CT 73738389 / Confirmed GERD - Gastro-esophageal reflux disease / SNOMED CT 2953508058 / Confirmed Shortness of breath with exercise / SNOMED CT 531336766 / Confirmed Back pain / SNOMED CT 2990071505 / Confirmed At risk for sleep apnea / IMO [id number] / Confirmed Asthma / SNOMED CT 289388313 / Confirmed Arthritis / SNOMED CT 4135046 / Confirmed Allergic rhinitis / SNOMED CT 189776615 / Confirmed, Active Problems (11) Allergic rhinitis [...] painful ROM R knee. Integumentary: Warm, Dry, [place]. Neurologic: Alert, Oriented. Psychiatric: Cooperative, Appropriate mood [...] and Plan Condition: Stable. Electronically signed by Adalid Collier Conversion Computer Applications Developer Cerner at 10/27/2022 8:08 PM CDT documented in this encounter Plan of Treatment Not on file documented as of this encounter Visit Diagnoses Not on filedocumented in this encounter
--- OUTSIDE RECORDS SUMMARY | 2025-07-10 09:58 | XMS_ITS | Encounter Summary ---
Author Organization [employer] ([place], [place], [place], [place], [place]) Address [address] [place] [address] Care Team Providers Care Brand Coordinator Name Role Phone Unavailable Primary Care Provider Unavailabl e Encounter Details Date Type Department Care Team (Late st Contact Info) Description 08/19/2018 Transcribed Document [facility] [place] [facility] [address] ProviderTree MD [address] [place] [address] Social History Tobacco Use Types [...] - Tree ProviderMD - 08/19/2018 2:34 PM SALES COMMISSIONS ANALYST PAT Adult Entered On: 08/19/2018 14:46 EST Performed On: 08/19/2018 14:34 EST by HIRAL MONTOYA RN Height and Weight, Clinical Dosing Height Source : Measured Height Entry Format : [place] Height, Feet : 5 ft(Converted to: 152 cm, 60 Inch) Height, Inches : 8.5 Inch(Converted to: 0 ft 9 Inch, 21.59 cm) Clinical Height : 173.99 cm Weight Source : Standing scale Weight Entry Format : [place] Clinical Dosing Weight : 101.82 kg Weight, Pounds : 224 lb Weight, Ounces : 0 oz Body Surface Area (BSA) : 2.16 m2 Body Mass Index : 33.6 kg/m2 (HI) [place] Body Weight : 69 kg HIRAL MONTOYA [...] Ambulatory Legal Guardian : Spouse Support Person/Patient Handyperson : Yes Support Person/Pt Rep Name : Wellington Howell - Support Person/Pt Rep Contact Information : [phone] Want Family/Rep/Phys Notified of Admit : No [...] 08/19/2018 14:34 EST Electronically signed by Amira, [facility] Conversion Skilled Labor Cerner at 10/27/2022 8:04 PM CDT documented in this encounter Plan of Treatment Not on file documented as of this encounter Visit Diagnoses Not on filedocumented in this encounter
--- OUTSIDE RECORDS SUMMARY | 2025-07-10 09:58 | XMS_ITS | Clinical Summary ---
Author Organization [facility] Address [address] [place] [address] Care Team Providers Care Welder And Fitter Name Role Phone Parrish Thurman MD Primary Care Provider [phone] Allergies Active Allergy Reactions Criticality Noted Date [...] times a day. 28 tablet 5 Active prochlorperazine (Compazine) 10 MG [...] by mouth daily. 30 tablet 11 5 07/12/20 26 Active irbesartan-hydroCH LOROthiazide (Avalide) 150-12.5 MG [...] a day. 120 tablet 3 5 Active gabapentin (Neurontin) 300 MG capsule Take 1 capsule by mouth nightly. 30 capsule 1 5 Active lenalidomide (Revlimid) 15 MG capsuleIndications :Multiple myeloma not having achieved remission (CMS/HCC) Take 1 capsule by mouth daily. Take for 14 days, then off 14 days. 28 day cycle. Take whole with water. Do not break, chew, or open. 14 capsule 5 Active potassium chloride CR (Klor-Con M20) 20 MEQ ER tablet TAKE 1 TABLET BY MOUTH TWICE DAILY . SWALLOW WHOLE, DO NOT CRUSH, SPLIT, OR CHEW. 60 tablet 1 5 Active oxyCODONE (Roxicodone) 5 MG immediate release tablet Take 1 tablet by mouth every 6 hours as needed for severe pain. 30 tablet 5 Active Active Problems Problem Noted Date Diagnosed [...] 11/08/2024 Cancer Staging:Clinical stage from 11/13/2024:RISS Stage III(Vehq-5-nuclzespebmlj (mg/L): 7.7, Albumin (g/dL): 3.6, ISS: Stage [...] 09/08/2010 Monoclonal gammopathy 10/27/2024 Overview (11/10/2024): IgG [place] Resolved Problems Problem Noted Date Diagnosed Date Resolved Date Chronic obstructive pulmonar y disease with acute lower respiratory infection 01/25/20252024 COPD (chronic obstructive pu lmonary disease) with acute bronchitis 05/13/2016 04/01/2025 Encounters Date Type Department Care Team Description 05/28/2025 1:15 PM EST - 05/28/2025 11:59 PM EST Hospital Encounter Medical Office Building Radiology [address] [place] [address] S/P spinal fusion; Chronic midline thoracic back pain Discharge Disposition: Home or Self Care 05/28/2025 1:00 PM EST Office Visit Medical Office Building Surgery Spine & Joint [address] [facility], [address] [place] [address] Afshan Bryan MD S/P spinal fusion (Primary Dx); Chronic midline thoracic back pain 05/28/2025 Travel 05/15/2025 Refill [facility] Hematology/BMT and Cellular Therapy Program [address] [facility] [place] [address] Mohit Villarreal MD 04/27/2025 Refill [facility] Hematology/BMT and Cellular Therapy Program [address] [place] [address] Mohit Villarreal MD Multiple myeloma not having achieved remission ([facility]) 04/26/2025 Telephone [facility] [address] [place] [address] Victorina Hurt, PharmD 04/18/2025 Telephone [facility] Hematology/BMT and Cellular Therapy Program [address] [place] [address] Mohit Villarreal MD from Last 3 Months [...] drink first t kiet in the morning ([facility]) to steady your nerves or to get rid of a hangover? 0 10/26/2024 CAGE Questionnaire Score 0 025 Utilities Answer Date Recorded In the past 12 months has ismael electric, gas, oil, or water company threatened to shut off services in your home? 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 [...] Building Surgery Spine & Joint [address] [facility], [address] [place] [address] Afshan Bryan MD [address] [place] [address] Health Maintenance Due Date Last [...] (2 - Td or Tdap) 08/17/2023 08/17/2013 [id number] Vaccine ( season) 2025 06/19/2024, 06/02/2023, 05/14/2022, [...] Garcias MD Medical Devices Implanted Type Area Asbestos Worker Helper Device Identifier Shelf Expiration Date Model / Serial / Lot Knee Knee Right: Knee Jacinto Viper2 Straight 400mm - [id number] Implanted:Qty: 1 on 09/14/2024 by Rajiv Garcias MD at [facility] Jacinto N/A: Spine Thoracic DePuy Spine [employer] [id number] 09/15/2024 [id number] / / Chip Bone 20cc - [id number] - [id number] Implanted:Qty: 1 on 09/14/2024 by Rajiv Garcias MD at [facility] N/A: Spine Thoracic [id number] 05/25/2029 PCAN1/4 / [id number] / [id number] Matrix Fibergraft Bg Lg 12.5cc - [id number] Implanted:Qty: 1 on 09/14/2024 by Rajiv Garcias MD at [facility] N/A: Spine Thoracic De[employer] Spine [employer] LP-[id number] 12/16/2026 [id number] / / [id number] Screw 5.5mm Expedium Verse Fen 5mm X 35mm - [id number] Implanted:Qty: 2 on 09/14/2024 by Rajiv Garcias MD at [facility] N/A: Spine Thoracic DePuy Spine [employer] LP-[id number] 09/15/[id number] / / Screw 5.5mm Expedium Verse Fen 5mm X 40mm - [id number] Implanted:Qty: 2 on 09/14/2024 by Rajiv Garcias MD at [facility] N/A: Spine Thoracic DePuy Spine [employer] LP-[id number] 09/15/[id number] / / Screw 5.5mm Expedium Verse Fen 5mm X 45mm - [id number] Implanted:Qty: 2 on 09/14/2024 by Rajiv Garcias MD at [facility] N/A: Spine Thoracic DePuy Spine [employer] LP-[id number] 09/15/[id number] / / Screw 5.5mm Expedium Verse Fen 6mm X 45mm - [id number] Implanted:Qty: 2 on 09/14/2024 by Rajiv Garcias MD at [facility] N/A: Spine Thoracic DePuy Spine [employer] LP-[id number] 09/14/[id number] / / Screw Set 5.5mm Expedium Verse Unitized - [id number] Implanted:Qty: 8 on 09/14/2024 by Rajiv Garcias MD at [facility] N/A: Spine Lumbar DePuy Spine [employer] LP-[id number] 09/14/2025 / / Matrix Fibergraft Bg Medium 6.25cc - [id number] Implanted:Qty: 1 on 10/25/2024 by Rajiv Garcias MD at [facility] Spine Lumbar De[employer] Spine [employer] LP-[id number] 05/25/2027 [id number] / / [id number] Kit Confidence Spinal Cement System Plus 11cc - [id number] Implanted:Qty: 1 on 10/25/2024 by Rajiv Garcias MD at [facility] N/A: Spine Lumbar DePuy Spine Sales LP-[id number] 05/11/2026 [id number] / / [id number] Screw 5.5mm Expedium Verse Fen 6mm X 45mm - [id number] Implanted:Qty: 4 on 10/25/2024 by Rajiv Garcias MD at [facility] N/A: Spine Lumbar DePuy Spine Sales LP-[id number] 10/25/2025 [id number] / / Screw Set 5.5mm Expedium Verse Unitized - [id number] Implanted:Qty: 10 on 10/25/2024 by Rajiv Garcias MD at [facility] N/A: Spine Lumbar DePuy Spine Sales LP-[id number] 10/25/2025 / / Jacinto Viper2 Straight 480mm - [id number] Implanted:Qty: 1 on 10/25/2024 by Rajiv Garcias MD at [facility] N/A: Spine Lumbar DePuy Spine Sales LP-[id number] 10/25/2025 [id number] / / Chip Bone 40cc - [id number] - [id number] Implanted:Qty: 1 on 10/25/2024 by Rajiv Garcias MD at [facility] Spine Lumbar [facility]-[id number] 08/24/2029 PCAN1/2 / [id number] / [id number] Procedures Procedure Name Priority Date/Time Associated Diagnosis Comments XR SCOLIOSIS ENTIRE SPINE 2 OR 3 VIEWS Routine 05/28/2025 1:30 PM EST S/P spinal fusion Chronic midline thoracic back pain from Last 3 Months Results * XR [...] changes of the sacroiliac joints. Procedure Note Tenzni Hodge MD - 05/28/2025 CLINICAL INDICATION: pain [...] anterolisthesis at L3-L4 and minimal posterior subluxation ptF27-H37 and T12-L1. CRITICAL RESULT: No. COMMUNICATION: Per this written report. Drafted by Tenzin Hodge MD on 05/28/2025 1:39 PM Final report signed by Tenzin Hodge MD on 05/28/2025 1:44 PM Heladio SAHU IMG XR PROCEDURES Final Resul t from Last 3 Months Additional Health Concerns Active Problems Noted Date Diagnosed Date Autogenerated Problem 10/19/2024 Insurance [facility] Advance Directives * Full Code (Latest [...] Patient has decision-making capacity? Yes Care Teams Welder And Fitter Relationship Specialty Start Date End Date Parrish Thurman MD [phone] PCP - General 10/19/24
--- OUTSIDE RECORDS SUMMARY | 2025-07-10 09:58 | XMS_ITS | Encounter Summary ---
Author Organization [employer] ([place], [place], [place], [place], [place]) Address [address] [place] [address] Care Team Providers Care Generation Engineering Technologist Name Role Phone Unavailable Primary Care Provider Unavailabl e Encounter Details Date Type Department Care Team (Late st Contact Info) Description 08/30/2018 Transcribed Document [facility] [place] [address] [place] [address] ProviderTree MD [address] [place] [address] Social History Tobacco Use Types [...] Tree Alonso MD - 08/30/2018 12:44 PM MANAGER LSW [facility] Main OR Preop Summary Primary Physician: BEATRIZ RAWLS MD-ORYuko Finalized Date/Time: 08/30/18 13:52:13 Pt. Name: DEEJAY PETRA JACKSON D.O.B./Sex: 1955 Male Med Rec #: [id number] Physician: BEATRIZ RAWLS MD-ORYuko Financial #: [id number] Pt. Type: O Room/Bed: /6 Admit/Disch: 08/30/18 06:24:00 - Institution: [facility] PreOp Case Times Entry 1 In Preop 08/30/18 05:35:00 Ready for Holding n/a Room Patient Ready for 08/30/18 10:45:00 Surgery Patient Out of Preop 08/30/18 12:03:00 Patient Out of n/a Holding Room Last Modified By: TANA SAENZ RN 08/30/18 13:52:11 [facility] PreOp Case Times Audit 08/30/18 13:52:11 Fisher Diver Net: MONICO Modifier: BOWLINC <+> 1 Patient Out of Preop 08/30/18 10:52:31 Fisher Diver Net: MONICO Modifier: BOWLINC <+> 1 Patient Ready for Surgery Finalized By: TANA SAENZ, RN Document Signatures Signed By: TANA SAENZ RN 08/30/18 13:52 Electronically signed by Amira [facility] Conversion Railroad Car Checker Cerner at 10/27/2022 8:06 PM CDT documented in this encounter Plan of Treatment Not on file documented as of this encounter Visit Diagnoses Not on filedocumented in this encounter
--- OUTSIDE RECORDS SUMMARY | 2025-07-10 09:58 | XMS_ITS | Encounter Summary ---
Author Organization [employer] ([place], [place], [place], [place]) Address [address] [place] [address] Care Team Providers Care Basin Operator Name Role Phone Unavailable Primary Care Provider Unavailabl e Encounter Details Date Type Department Care Team (Late st Contact Info) Description 08/30/2018 Transcribed Document [facility] Family Medicine [address] [place] [address] ProviderTree MD [address] [place], [place] [id number] Social History Tobacco Use Types Packs/Day Years [...] - Tree ProviderMD - 08/30/2018 2:59 PM SENIOR SOURCING MANAGER Pain Assessment Entered On: 08/31/2018 15:30 EST [...]
--- OUTSIDE RECORDS SUMMARY | 2025-07-10 09:58 | XMS_ITS | Encounter Summary ---
Author Organization [facility] Address [address] [id number] Care Team Providers Care Change Control Manager Name Role Phone Parrish Thurman MD Primary Care Provider [phone] Reason for Visit * Reason Comments Med Refill Encounter Details Date Type Department Care Team ([facility] st Contact Info) Description 05/15/2025 Refill [facility] Hematology/BMT and Cellular Therapy Program [address] [address] Mohit Villarreal MD [address] [facility] [address] [place] [address] Social History Tobacco Use Types Packs/Day Years [...] any time in the past 12 m [facility], were you homeless or living [...] drink first t kiet in the morning ([facility]) to steady your nerves or to get [...] Start Date Job End Date 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 file Not on file Not on file documented as of this encounter Plan of Treatment Upcoming Encounters Date Type Department Care Team (Late st Contact Info) Description 12/07/2025 1:00 PM EDT Office Visit Medical Office Building Surgery Spine & Joint [address], [address] [place] [address] Afshan Bryan MD [address] [place] [address] documented as of this encounter [...] documented as of this encounter Care Teams Change Control Manager Relationship Specialty [place] [id number] PCP - General 10/19/24 documented as of this encounter
--- OUTSIDE RECORDS SUMMARY | 2025-07-10 09:58 | XMS_ITS | Referral Summary ---
Author Organization [employer] ([place], [place], [place], [place], [place]) Address [address] [place] [address] Care Team Providers Care Panel Gluer Name Role Phone Unavailable Primary Care Provider [...]
--- OUTSIDE RECORDS SUMMARY | 2025-07-10 09:58 | XMS_ITS | Encounter Summary ---
Author Organization [employer] ([place], [place], [place]) Address [address] [place] [address] Care Team Providers Care Skein Drier Name Role Phone Unavailable Primary Care Provider Unavailabl e Encounter Details Date Type Department Care Team (Late st Contact Info) Description 08/30/2018 Transcribed Document [facility] [place] [facility] [address] ProviderTree MD [facility] [place] [id number] Social History Tobacco Use Types Packs/Day Years [...] Tree Alonso MD - 08/30/2018 2:42 PM NREMT DATE OF PROCEDURE:08/30/2018 PREOPERATIVE DIAGNOSIS(ES): Right knee osteonecrosis, medial femoral condyle with degenerative arthritis. POSTOPERATIVE DIAGNOSIS(ES): Right knee osteonecrosis, medial femoral condyle with degenerative arthritis. PROCEDURE: Right total knee replacement. SURGEON: Jakob Kimble MD SECURITY MESSENGER: Jakob Celaya PA-C ANESTHESIA: Regional block with [...]
--- OUTSIDE RECORDS SUMMARY | 2025-07-10 09:58 | XMS_ITS | Encounter Summary ---
Author Organization [facility] Address [address] [place] [address] Care Team Providers Care Youth Accommodation Support Worker Name Role Phone Handy Pennington MD Primary Care Provider [phone] Parrish Thurman MD Primary Care Provider [phone] Encounter Details Date Type Department Care Team (Late st Contact Info) Description 07/10/2024 Orders Only External Location [address] [place] [address] Provider, External Social History Tobacco Use Types [...] Joint [address], [address] [place] [address] Afshan Bryan MD [address] [place] [address] documented as of this encounter [...] on filedocumented in this encounter Care Teams Youth Accommodation Support Worker Relationship Specialty Start Date End Date Handy Pennington MD [facility] [address] PCP - General 11/22/20 10/18/24 [place] [address] PCP - General 10/19/24 documented as of this encounter
--- OUTSIDE RECORDS SUMMARY | 2025-07-10 09:58 | XMS_ITS | Encounter Summary ---
Author Organization [employer] ([place], [place], [place], [place], [place]) Address [address] [place] [address] Care Team Providers Care Production Control Manager Name Role Phone Unavailable Primary Care Provider Unavailabl e Encounter Details Date Type Department Care Team (Late st Contact Info) Description 08/30/2018 Transcribed Document [facility] [place] Family Medicine [address] [place] [address] ProviderTree MD [address] [place], [place] [phone] Social History Tobacco Use Types Packs/Day Years [...] Tree Alonso MD - 08/30/2018 12:44 PM VOCATIONAL INSTRUCTOR [facility] Main OR PACU Summary Primary Physician: BEATRIZ RAWLS MD-ORYuko Finalized Date/Time: 08/30/18 18:53:12 Pt. Name: PETRA VILLALBA D.O.B./Sex: 1955 Male Med Rec #: [id number] Physician: BEATRIZ RAWLS MD-ORYuko Financial #: [id number] Pt. Type: O Room/Bed: 648/1 Admit/Disch: 08/30/18 06:24:00 - Institution: [facility] Main OR PACU I Case Times Entry 1 In PACU I 08/30/18 14:52:00 Ready for PACU 08/30/18 15:45:00 Discharge Discharge from PACU 08/30/18 17:53:00 I Last Modified By: PAUL PEARSON RN 08/30/18 17:39:47 [facility] Main OR PACU I Case Times Audit 08/30/18 18:52:48 Desk Clerk: NISHA Modifier: NISHA <+> 1 Discharge from [...] RN 08/30/18 18:53 Electronically signed by Amira [facility] Conversion Lead Database Developer Cerner at 10/27/2022 8:25 PM CDT documented in this encounter Plan of Treatment Not on file documented as of this encounter Visit Diagnoses Not on filedocumented in this encounter
--- OUTSIDE RECORDS SUMMARY | 2025-07-10 09:58 | XMS_ITS | Encounter Summary ---
Author Organization [employer] ([place], [place], [place], [place]) Address [address] [place] [address] Care Team Providers Care Trial Mgr Name Role Phone Unavailable Primary Care Provider Unavailabl e Encounter Details Date Type Department Care Team (Late st Contact Info) Description 08/30/2018 Transcribed Document [facility] [place] Family Medicine [facility] [place] [address] ProviderTree MD [facility] [place] [address] Social History Tobacco Use Types [...] - Tree ProviderMD - 08/30/2018 2:59 PM AMMONIA BOX TENDER Evaluation, Physical Therapy Entered On: 08/31/2018 12:38 [...] 15:00 PT Treatment Instructions Ordered By: BEATRIZ RAWSL MD-ORT 08/30/2018 15:00 PT Treatment Instructions Ordered By: BEATRIZ RAWLS MD-ORT Active Diagnoses : 08/30/2018 00:00 Osteonecrosis, unspecified Admission Date : 08/30/2018 06:24 Co-treated by, PT : Occupational Therapist Personal Devices : Personal Devices No Devices Recorded Assistive Devices : Assistive Devices No Devices Recorded General Information Comment, PT : 62 yo male adm to [facility] 08/30 for adv OA [...] to Sit Device : Rails, Other: leg bell hole digger Sit to Stand Device : Belt, gait, Walker, front wheel Stand to Sit Device : Belt, gait, Walker, front wheel TEJAL ROBERTS, PT - 08/31/2018 12:08 EST AM [facility] Basic Mobility Turning Over in Bed : Unable Sit Down On/Stand Up From Chair w/ Arms : Unable Move Back Lying to Sitting Side of Bed : Unable Moving To/From a Bed to Chair : A little Need to Walk in Hospital Room : A little Climbing 3-5 Steps with a Railing : A little AM-[facility] Basic Mobility Raw Score : 12 AM-[facility] Basic Mobility Standardized Score : 35.33 AM-[facility] Basic Mobility CMS 0-100% Score : 68.66 % TEJAL ROBERTS, PT - 08/31/2018 12:08 EST Image 1 - Images currently included in the form version of this document have not been included in the text rendition version of the form. Functional Limitation Reporting, PT Functional Limitation Visit Type, PT : Initial evaluation Severity Determination Method, PT : Clinical Judgment, AM [facility] Basic Mobility Mobility [id number] - Current Mod, [...] TEJAL ROBERTS, PT - 08/31/2018 12:08 EST Halfway Goals Mobility/Bed Mobility LTG PT [...] LE did step in retro fashion joint riding coach NOT present Assessment : good effort, but struggled with bed mob and gait ROM limited by pain 1st day post op needs review of HEP, gait and stairs Joint PET COUNSELOR needs to be present Plan for Treatment : review gait and HEP in PM along with step WITH JOINT PET COUNSELOR present TEJAL ROBERTS PT - 08/31/2018 12:08 [...] TEJAL ROBERTS, PT - 08/31/2018 12:08 EST Roberta PT Charges PT Therap. Exercise 15 min : 2 Gait Training Each 15 Min : 1 PT Eval Low Complexity : 1 TEJAL ROBERTS, PT - 08/31/2018 12:08 EST documented in this encounter Plan of Treatment Not on file documented as of this encounter Visit Diagnoses Not on filedocumented in this encounter
--- OUTSIDE RECORDS SUMMARY | 2025-07-10 09:58 | XMS_ITS | Encounter Summary ---
Author Organization [employer] ([place], [place], [place], [place], [place]) Address [address] [place] [address] Care Team Providers Care Kitchen Steward/Stewardess Name Role Phone Unavailable Primary Care Provider Unavailabl e Encounter Details Date Type Department Care Team (Late st Contact Info) Description 08/30/2018 Transcribed Document [facility] [place] Family Medicine [facility] [place] [address] ProviderTree MD [facility] [place] [phone] Social History Tobacco Use Types Packs/Day Years [...] - Tree ProviderMD - 08/30/2018 6:23 AM COLD STORAGE SUPERINTENDENT Admission History, Adult Entered On: 08/30/2018 18:55 [...] Ambulatory Legal Guardian : Spouse Support Person/Patient Food Crops Farm Hand : Yes Support Person/Pt Rep Name : Wellington Howell - Support Person/Pt Rep Contact Information : [phone] Want Family/Rep/Phys Notified of Admit : No Emergency Contact #1 : Wellington Lynda Emergency Contact #1 Emergency Contact #1 Relationship : Emergency Contact #2 : na Emergency Contact #2 Phone Number : na Emergency Contact #2 Relationship : na Information Obtained From : Patient Primary Language : Angolan Preferred Communication Mode : Verbal Communication Barrier [...] Level : 46 or > High Risk [place] Fall Interventions : Adequate lighting, Assistive devices [...] Body Mass Index : 33.6 kg/m2 (HI) [place] Body Weight : 69 kg Xochilt Ba [...] 08/30/2018 18:47 EST Electronically signed by Amira [facility] Conversion Parasitologist Cerner at 10/27/2022 8:15 PM CDT documented in this encounter Plan of Treatment Not on file documented as of this encounter Visit Diagnoses Not on filedocumented in this encounter
--- OUTSIDE RECORDS SUMMARY | 2025-07-10 09:58 | XMS_ITS | Encounter Summary ---
Author Organization [employer] ([place], [place], [place], [place]) Address [address] [place] [address] Care Team Providers Care Internal Communications Writer Name Role Phone Unavailable Primary Care Provider Unavailabl e Encounter Details Date Type Department Care Team (Late st Contact Info) Description 08/30/2018 Transcribed Document [facility] [place] Family Medicine [address] [place] [address] ProviderTree MD [facility] [place] [id number] Social History Tobacco Use Types Packs/Day Years [...] - Tree ProviderMD - 08/30/2018 2:59 PM DRESSING ROOM ATTENDANT Evaluation, Occupational Therapy Entered On: 08/31/2018 [...] SBA, min A for LB dressing using silvering applicator. Pt educated on use AE for LB [...] LEVAR BAJWA OTR/L - 08/31/2018 14:34 EST [place] OT Charges OT Selfcare/Hm Mgmt Ea 15 Min : 1 OT Eval Low Complexity : 1 LEVAR BAJWA OTR/Sis - 08/31/2018 14:34 EST Electronically signed by Amira [facility] Conversion Entry Table Operator Cerner at 10/27/2022 8:26 PM CDT documented in this encounter Plan of Treatment Not on file documented as of this encounter Visit Diagnoses Not on filedocumented in this encounter
--- OUTSIDE RECORDS SUMMARY | 2025-07-10 09:58 | XMS_ITS | Clinical Summary ---
Author Organization [facility] Address [address] [place] [address] Care Team Providers Care Film And Video Graphics Designer Name Role Phone Provider, No Known Primary [...] Vaccine ( - 2024- season) 03/12/202504/2021 Insurance [facility] PPO Care Teams Film And Video Graphics Designer Relationship Specialty Start Date End Date Provider, No Known [facility] [place] [address] PCP - General 10/22/20
--- OUTSIDE RECORDS SUMMARY | 2025-07-10 09:59 | XMS_ITS | Encounter Summary ---
Author Organization [employer] ([place], [place], [place], [place], [place]) Address [address] [place] [address] Care Team Providers Care Decision Analyst Name Role Phone Unavailable Primary Care Provider Unavailabl e Encounter Details Date Type Department Care Team (Late st Contact Info) Description 08/31/2018 Transcribed Document [facility] [place] [facility] [place] [address] ProviderTree MD [facility] [place] [id number] Social History Tobacco Use Types Packs/Day Years [...] Tree Alonso MD - 08/31/2018 3:00 PM WIRE WRAPPER MACHINE OPERATOR Orthopedic Nurse Navigator Entered On: 08/31/2018 15:03 EST Performed On: 08/31/2018 15:00 EST by JUAN FRAZIER Rn-Ortho Nurse Navigator Orthopedic Nurse Navigator Assessment Attended Joint Academy : Yes Joint AcademyType : In person Joint Academy Date : 08/19/2018 EST Joint Textile Converter Attended Academy : Yes Joint Textile Converter Name : [place] Type of Surgery : Total Knee Replacement, Right Does Patient Have a Walker? : No Walker/toilette Ordered for After Discharge : Yes Anticipated Discharge Plan : Home Health PT Anticipated Discharge Plan Comment : Patient plan set at [employer] to d/c home with the help of his and requests [facility] for [facility]. Patient [...]
--- OUTSIDE RECORDS SUMMARY | 2025-07-10 09:59 | XMS_ITS | Encounter Summary ---
Author Organization [employer] ([place], [place], [place], [place], [place]) Address [address] [place] [address] Care Team Providers Care Zone Maintenance Technician Name Role Phone Unavailable Primary Care Provider Unavailabl e Encounter Details Date Type Department Care Team (Late st Contact Info) Description 08/31/2018 Transcribed Document [facility] [place] [address] [place] [address] ProviderTree MD [facility], [facility] [place] [address] Social History Tobacco Use Types [...] Tree ProviderMD - 08/31/2018 10:44 AM SALES EXECUTIVE Nursing Discharge Summary Entered On: 08/31/2018 10:44 [...] Questions Given : Patient, Spouse, Other: joint ice hockey coach Patient Education Completed : Yes Teaching Method : Explanation, Printed materials Teaching Evaluation : Needs further teaching Xochilt Ba RN - 08/31/2018 10:44 EST Electronically signed by Amira [facility] Conversion Accounting Professor Cerner at 10/27/2022 8:20 PM CDT documented in this encounter Plan of Treatment Not on file documented as of this encounter Visit Diagnoses Not on filedocumented in this encounter
--- OUTSIDE RECORDS SUMMARY | 2025-07-10 09:59 | XMS_ITS | Encounter Summary ---
Author Organization [employer] ([place], [place], [place], [place], [place]) Address [address] [place] [address] Care Team Providers Care Mixing Place Supervisor Name Role Phone Unavailable Primary Care Provider Unavailabl e Encounter Details Date Type Department Care Team (Late st Contact Info) Description 08/31/2018 Transcribed Document [facility] [place] [facility] [place] [address] ProviderTree MD [address] [place], [place] [id number] Social History Tobacco Use Types Packs/Day Years [...] - Tree ProviderMD - 08/31/2018 4:06 PM PET CREMATORY WORKER Discharge Summary, PT Entered On: 08/31/2018 16:07 [...] CARLOS CASTILLO, PT - 08/31/2018 16:06 EST [facility] Goals Mobility/Bed Mobility LTG PT Grid Goal [...] EST Electronically signed by Adalid Collier Conversion Artificial Breeding Ranch Supervisor Cerner at 10/27/2022 8:11 PM CDT documented in this encounter Plan of Treatment Not on file documented as of this encounter Visit Diagnoses Not on filedocumented in this encounter
--- OUTSIDE RECORDS SUMMARY | 2025-07-10 09:59 | XMS_ITS | Encounter Summary ---
Author Organization [employer] ([place], [place], [place], [place], [place]) Address [address] [place] [address] Care Team Providers Care Service Or Work Dispatcher Name Role Phone Unavailable Primary Care Provider Unavailabl e Encounter Details Date Type Department Care Team (Late st Contact Info) Description 08/31/2018 Transcribed Document [facility] [place] [facility] [place] [address] ProviderTree MD [address] [place] [address] Social History Tobacco Use Types Packs/Day [...] Tree Alonso MD - 08/31/2018 10:51 AM DATA COMMUNICATIONS ANALYST [address] [place] [address] Patient Copy Patient Information: Name: PETRA VILLALBA Current Date: 08/31/2018 10:51:42 : 1955 Patient Address: [address] [place] [phone] Patient Attending Physician: BEATRIZ RAWLS MD-ORT Primary Care Provider: BILL VENTURA MD-KATHLEEN Primary Care Provider Discharge Diagnosis: Weight on Admission: 224 lb, 0 oz Comment: Follow-up Instructions: With: Address: When: BEATRIZ RAWLS [address] [facility], [place] [id number] [facility] (1) 11:00 AM Discharge Instructions: Diet [...] nasal (fluticasone 50 mcg/inh nasal spray) 1 [place](s) Nostrils Both Every Day. fluticasone/umeclidinium/vilanterol (Trelegy Ellipta) [...] 10/23/2013 Document Revised: 07/19/2015 Document Reviewed: 06/13/2016 [employer] Interactive Patient Education ? 2017 [employer]. Wound Infection Introduction A wound infection [...] instructions at home: Medicines??? Take or apply zddr-hdj-wramjve and prescription medicines only as told by [...] cannot use soap and water, use hand battery mechanic. ? Change your bandage as told by [...] these instructions at home: Medicines ??? Take zvqt-ymi-urtyfjp and prescription medicines only as told by [...] cannot use soap and water, use hand battery mechanic. ? Change your bandage as told by [...] 09/19/2012 Document Revised: 03/01/2017 Document Reviewed: 06/03/2016 [employer] Interactive Patient Education ? 2017 [employer]. Medication Leaflets: tamsulosin (durant angeline FEROZ sin) [...] may report side effects to FDA at 2-608-ERX-8588. What other drugs will affect tamsulosin? Tell [...] may affect tamsulosin. This includes prescription and oini-eyj-gvuucyl medicines, vitamins, and herbal products. Not all [...] to ensure that the information provided by [employer]. ('[employer]') is accurate, up-to-date, and complete, but no guarantee is made to that effect. Drug information contained herein may be time sensitive. [employer] information has been compiled for use by healthcare practitioners and consumers in the [place] and therefore [employer] does not warrant that uses outside of the [place] are appropriate, unless specifically indicated otherwise. [employer] drug information does not endorse drugs, diagnose patients or recommend therapy. [employer] drug information is an informational resource designed [...] effective or appropriate for any given patient. [employer] does not assume any responsibility for any aspect of healthcare administered with the aid of information [facility] provides. The information contained herein is not intended to cover all possible uses, directions, precautions, warnings, drug interactions, allergic reactions, or adverse effects. If you have questions about the drugs you are taking, check with your doctor, nurse or pharmacist. Copyright 2651-2435 [facility] [employer]. Version: 9.01. Revision Date: 06/06/2018. enoxaparin [...] may report side effects to FDA at 5-510-WPI-7765. What other drugs will affect enoxaparin? Tell [...] drugs may affect enoxaparin, including prescription and dlop-dwm-weglnkw medicines, vitamins, and herbal products. Not all [...] to ensure that the information provided by [employer]. ('[employer]') is accurate, up-to-date, and complete, but no guarantee is made to that effect. Drug information contained herein may be time sensitive. [employer] information has been compiled for use by healthcare practitioners and consumers in the [place] and therefore [employer] does not warrant that uses outside of the [place] are appropriate, unless specifically indicated otherwise. [employer]'s drug information does not endorse drugs, diagnose patients or recommend therapy. [employer] drug information is an informational resource designed [...] effective or appropriate for any given patient. [facility] does not assume any responsibility for any aspect of healthcare administered with the aid of information [facility] provides. The information contained herein is not intended to cover all possible uses, directions, precautions, warnings, drug interactions, allergic reactions, or adverse effects. If you have questions about the drugs you are taking, check with your doctor, nurse or pharmacist. Copyright 5452-8065 [facility], [facility]. Version: 05.12. Revision Date: 10/14/2017. [...] may report side effects to FDA at 5-650-ONS-4635. What other drugs will affect acetaminophen and [...] affect acetaminophen and oxycodone, including prescription and fovg-yib-gsgduvf medicines, vitamins, and herbal products. Not all [...] to ensure that the information provided by [employer]. ('[employer]') is accurate, up-to-date, and complete, but no guarantee is made to that effect. Drug information contained herein may be time sensitive. [employer] information has been compiled for use by healthcare practitioners and consumers in the [place] and therefore [employer] does not warrant that uses outside of the [place] are appropriate, unless specifically indicated otherwise. [employer] drug information does not endorse drugs, diagnose patients or recommend therapy. [employer] drug information is an informational resource designed [...] effective or appropriate for any given patient. [employer] does not assume any responsibility for any aspect of healthcare administered with the aid of information [employer] provides. The information contained herein is not intended to cover all possible uses, directions, precautions, warnings, drug interactions, allergic reactions, or adverse effects. If you have questions about the drugs you are taking, check with your doctor, nurse or pharmacist. Copyright 5923-5735 [employer]. Version: 18.02. Revision Date: 06/08/2018. CIGARETTE SMOKING: The facts are clear, cigarette smoking will shorten your life. Smoking can cause many illnesses along the way. As a healthcare provider, we recommend that you stop smoking. Assistance with quitting is available by contacting 7-832-VFXK-NOW. This is a free resource providing counseling, [...] Be sure to sign up for the [facility] patient portal, which gives you / access to your medical information ??? including these discharge instructions ??? using your computer, smartphone, or tablet. Just go to Machina to get started. Questions? Call . [facility] would like to thank you for allowing us to assist you with your healthcare needs. IDEEJAY BILL RAY, (or fraud representative) have received the above patient education materials/instructions and have verbalized understanding: Patient Signature _ Date/Time Patient Instrument Technician Signature (if needed) Date/Time Clinician/Hospital Instrument Technician Signature (if needed) Date/Time Electronically signed by Adalid Collier Conversion Pharmacy Services Representative Katelyn at 10/27/2022 8:22 PM CDT documented in this encounter Plan of Treatment Not on file documented as of this encounter Visit Diagnoses Not on filedocumented in this encounter
--- OUTSIDE RECORDS SUMMARY | 2025-07-10 09:59 | XMS_ITS | Encounter Summary ---
Author Organization [employer] ([place], [place], [place], [place], [place]) Address [address] [place] [address] Care Team Providers Care Physician Allergist Immunologist Name Role Phone Unavailable Primary Care Provider Unavailabl e Encounter Details Date Type Department Care Team (Late st Contact Info) Description 08/31/2018 Transcribed Document [facility] [place] [facility] [place] [address] ProviderTree MD [address] [place] [address] Social History Tobacco Use Types Packs/Day [...] Tree Alonso MD - 08/31/2018 7:23 AM HYDRO ELECTRIC STATION OPERATOR [address] [place] [address] Patient Copy Patient Information: Name: PETRA VILLALBA Current Date: 08/31/2018 07:23:32 : 1955 Patient Address: [address] [place] [phone] Patient Attending Physician: BEATRIZ RAWLS MD-ORT Primary Care Provider: BILL VENTURA MD-KATHLEEN Primary Care Provider Discharge Diagnosis: Weight on Admission: 224 lb, 0 oz Comment: Follow-up Instructions: With: Address: When: BEATRIZ RAWLS [address] [place], [place] [address] [place] [address] [facility] (1) 11:00 AM Discharge Instructions: Immunizations [...] nasal (fluticasone 50 mcg/inh nasal spray) 1 [place](s) Nostrils Both Every Day. fluticasone/umeclidinium/vilanterol (Trelegy Ellipta) [...] Assistance with quitting is available by contacting 5-723-DTTP-NOW. This is a free resource providing counseling, [...] Be sure to sign up for the [facility] patient portal, which gives you 01/02 access to your medical information ??? including these discharge instructions ??? using your computer, smartphone, or tablet. Just go to Kingspoke to get started. Questions? Call . [facility] would like to thank you for allowing us to assist you with your healthcare needs. DEEJAY Pacheco BILL RAY, (or customer solutions representative) have received the above patient education materials/instructions and have verbalized understanding: Patient Signature _ Date/Time Patient Pot Washer Signature (if needed) Date/Time Clinician/Hospital Pot Washer Signature (if needed) Date/Time documented in this encounter Plan of Treatment Not on file documented as of this encounter Visit Diagnoses Not on filedocumented in this encounter
--- OUTSIDE RECORDS SUMMARY | 2025-07-10 09:59 | XMS_ITS | Encounter Summary ---
Author Organization [employer] ([place], [place], [place], [place], [place]) Address [address] [place] [address] Care Team Providers Care Bill Of Materials Clerk Name Role Phone Unavailable Primary Care Provider Unavailabl e Encounter Details Date Type Department Care Team (Late st Contact Info) Description 08/31/2018 Transcribed Document [facility] [place] [address] [place] [address] ProviderTree MD [address] [place] [address] Social History Tobacco Use Types [...] - Tree ProviderMD - 08/31/2018 12:00 PM HEAD PACKAGER Pain Assessment Entered On: 08/31/2018 15:28 EST [...]
--- OUTSIDE RECORDS SUMMARY | 2025-07-10 09:59 | XMS_ITS | Encounter Summary ---
Author Organization [employer] ([place], [place], [place], [place], [place]) Address [address] [place] [address] Care Team Providers Care Speed Runner Name Role Phone Unavailable Primary Care Provider Unavailabl e Encounter Details Date Type Department Care Team (Late st Contact Info) Description 08/31/2018 Transcribed Document [facility] [place] [address] [place] [address] ProviderTree MD [address] [place] [id number] Social History Tobacco Use Types Packs/Day Years [...] Tree Alonso MD - 08/31/2018 7:20 AM TRANSACTIONAL PARALEGAL Patient: PETRA VILLALBA Age: 62 years Sex: Male : 1955 Associated Diagnoses: None Author: BEATRIZ RAWLS MD-ORT Had trouble urinating, little placed and still in. WIll start on flomax, send home with little and have him see urologist. Electronically signed by Adalid Collier Conversion Tetryl Boiling Tub Operator Katelyn at 10/27/2022 8:08 PM CDT documented in this encounter Plan of Treatment Not on file documented as of this encounter Visit Diagnoses Not on filedocumented in this encounter
--- OUTSIDE RECORDS SUMMARY | 2025-07-10 09:59 | XMS_ITS | Encounter Summary ---
Author Organization [employer] ([place], [place], [place], [place], [place]) Address [address] [place] [address] Care Team Providers Care Microsoft Dynamics Manager Architect Name Role Phone Unavailable Primary Care Provider Unavailabl e Encounter Details Date Type Department Care Team (Late st Contact Info) Description 08/31/2018 Transcribed Document [facility] [place] [address] [place] [address] ProviderTree MD [address] [place] [address] Social History Tobacco Use [...] - Tree ProviderMD - 08/31/2018 1:39 PM OFFICE MESSENGER HELPER Care Management Assessment/Plan Entered On: 08/31/2018 13:46 EST Performed On: 08/31/2018 13:39 EST by Christina Meyers RN Care Management Note Care Management Note : Pt had f/c placed for urinary retention and needs f/u appt with Uro in 5 days. Called [facility] ([phone]) to schedule appt, but MD needs referral and clinicals faxed and then they will call pt with appt. Faxed everything needed and informed pt and spouse. Pt will dc home on Lovenox for DVT prophylaxis. Faxed script for Lovenox to [facility] in [place], they have enough in stock and pt's co-pay is $10. Pt and spouse agree to pay this. Care Management Note Report : Christina Meyers RN - 08/31/18 11:28:36 [id number] Documentation Status Complete : Yes Christina Meyers RN - 08/31/2018 13:39 EST Electronically signed by Amira [facility] Conversion Loan Servicing Specialist Cerner at 10/27/2022 8:13 PM CDT documented in this encounter Plan of Treatment Not on file documented as of this encounter Visit Diagnoses Not on filedocumented in this encounter
--- OUTSIDE RECORDS SUMMARY | 2025-07-10 09:59 | XMS_ITS | Encounter Summary ---
Author Organization [employer] ([place], [place], [place], [place], [place]) Address [address] [place] [address] Care Team Providers Care Snowsport Instructor Name Role Phone Unavailable Primary Care Provider Unavailabl e Encounter Details Date Type Department Care Team (Late st Contact Info) Description 08/31/2018 Transcribed Document [facility] [place] [address] [place] [address] ProviderTree MD [address] [place] [address] Social History Tobacco Use Types [...] - Tree ProviderMD - 08/31/2018 7:26 AM SOFTWARE DEVELOPMENT INTERN Care Management Assessment/Plan Entered On: 08/31/2018 11:28 [...] am to discuss DCP. FRW obtained from [facility] and has been delivered to pt's room. Referral sent to [facility] via [facility] for [facility]HC and informed liaison Aminah. [...]
--- OUTSIDE RECORDS SUMMARY | 2025-07-10 09:59 | XMS_ITS | Encounter Summary ---
Author Organization [employer] ([place], [place], [place], [place], [place]) Address [address] [place] [address] Care Team Providers Care Manager Of Hospital Name Role Phone Unavailable Primary Care Provider Unavailabl e Encounter Details Date Type Department Care Team (Late st Contact Info) Description 08/31/2018 Transcribed Document [facility] [place] [address] [place] [address] ProviderTree MD [address] [place], [place] [id number] Social History Tobacco Use Types Packs/Day Years [...] Tree Alonso MD - 08/31/2018 7:06 AM PATIENT INSURANCE CLERK Patient: PETRA VILLALBA Age: 62 years Sex: Male : 1955 Associated Diagnoses: None Author: BEATRIZ RAWLS MD-ORT Alert, walked by himself yesterday as PT had gone home. Afeb VS stable distal nvs intact xrays good Hb 15.4 to 14.0 post op stable Plan: walk, dc home Lovenox, percocet 5 RTO 2 weeks Electronically signed by [facility] Conversion Inspector Elevators Cerner at 10/27/2022 8:14 PM CDT documented in this encounter Plan of Treatment Not on file documented as of this encounter Visit Diagnoses Not on filedocumented in this encounter
--- OUTSIDE RECORDS SUMMARY | 2025-07-10 09:59 | XMS_ITS | Patient Health Record ---
Author Organization [facility] Address [address] [place] [id number] Care Team Providers Care Dialysis Chief Equipment Technician Name Role Phone Funmi Thurman Primary Care Provider FUNMI THURMAN Unavailable Unavailable Allergies Allergen (clinical drug ingredient) Drug/Non Drug Allergy documented on EMR Reaction Allergy Type Onset Date Status rosuvastatin Crestor muscle aches Drug Allergy A ctive Results Component Value Reference Range Notes P-Comprehensive Metabolic Pa waqar (CMP) Reviewed date:07/20/2024 12:41:50 PM Interpretation:ast 99, bili 1.4 Performing Lab: Notes/Report: Test performed by [facility] , [address], [place] [address] Rodríguez Cohen MD, [place] CLIA: [id number] Sodium 140 135-145 mmol/L Potassium 3.7 3.5-5.3 [...] 3.8 Performing Lab: Notes/Report: Test performed by [facility] [address] [place] [address] [address], [place] [address] Rodríguez Cohen MD, [place] CLIA: [id number] Cholesterol 220 <200 mg/dL Triglycerides 144 <150 [...] Interpretation:8.65 Performing Lab: Notes/Report: Test performed by [facility] [address] [place] [address] , [address], [place] [address] Rodríguez Cohen MD, [place] CLIA: [id number] PSA 8.65 <4.00 ng/mL Please note this is an ultrasensitive PSA assay with a lower limit of detection of 0.014 ng/mL. This test is performed by the [employer] ECLIA methodology. Values obtained with different assay methods or kits cannot be directly compared. PSA Free 2.23 This test is performed by the [employer] ECLIA methodology. Values obtained with different assay [...] Interpretation:Normal Performing Lab: Notes/Report: Test performed by [facility] [address] [place] [address] , [address], [place] [address] Rodríguez Cohen MD, [place] CLIA: [id number] TSH reflex to FT4 1.43 0.43-5.25 mU/L P-Microalbumin/Creatinine, R andom Urine Sample Reviewed date:07/20/2024 12:41:50 PM Interpretation:a/c 36 Performing Lab: Notes/Report: Test performed by [facility] [address] [place] [address] , [address], [place] [address] Rodríguez Cohen MD, [place] CLIA: [id number] Albumin/Creatinine Ratio, Urine 36 0-30 ug/mg Microalbumin, Urine, Random 3.6 Creatinine, Urine 98.9 P-Basic Metabolic Panel (BMP ) Reviewed date:11/07/2024 09:39:24 AM Interpretation:co2- 21, gluc 103, Cr 1.36, Ca 11.6, gfr 55 Performing Lab: Notes/Report: Test performed by [facility] [address] [place] [address] , [place] [address] Rodríguez Cohen MD, [place] CLIA: [id number] Sodium 143 135-145 mmol/L Potassium 3.7 3.5-5.3 mmol/L Chloride 107 97-108 mmol/L CO2 21 22-32 mmol/L Glucose 103 65-99 mg/dL BUN 18 8-23 mg/dL Creatinine 1.39 0.70-1.30 mg/dL Calcium 11.6 8.6-10.4 mg/dL eGFR by Creatinine 55 >59 mL/min/1.73m2 MT Reviewed date:07/19/2024 08:59:30 AM Interpretation: Performing Lab: Notes/Report: P-Basic Metabolic Panel (BMP ) Reviewed date:03/16/2025 01:58:09 PM Interpretation:Normal Performing Lab: Notes/Report: Test performed by [facility] [address] [place] [address] , [place] [address] Rodríguez Cohen MD, [place] CLIA: [id number] Sodium 139 135-145 mmol/L Potassium 3.9 3.5-5.3 mmol/L Chloride 102 97-108 mmol/L CO2 24 20-32 mmol/L Glucose 94 65-99 mg/dL BUN 12 8-23 mg/dL Creatinine 0.93 0.70-1.30 mg/dL Calcium 9.8 8.6-10.4 mg/dL eGFR by Creatinine 89 >59 mL/min/1.73m2 Reason For Referral Reason Pt needs to see pain management at [facility] about having a kyphoplasty on the T-spine compression fracture Diagnosis 1 Acute bilateral low back pain without sciatica (M54.50) Diagnosis 2 Back muscle spasm (M 62.830) [facility] Ref[facility] Provider First Name Funmi Referring Provider Last Name Olman Referring Provider Speciality Family Pra ctice Referred Provider Camden Katz Referred Provider Specialty Pain Managem ent General Notes Torrey Ortegaia 1:41:22 PM > referral faxed to Dr. Katz. Pt needs to see pain management at [facility] about having a kyphoplasty on the T-spine compression fracture, Blanche Ortega 07/19/2024 2:45:07 PM > Dr. Thurman spoke [...] Status Risk Notes Problem Gastroesophageal reflux disease (451771277) GERD (gastroesophageal reflux disease) (K21.9) Active confirmed Problem Sinusitis (02542612) Sinusitis (J32.9) Active c onfirmed Problem Essential hypertension (27542927) Essential hypertension (I10) Active confirmed Problem Morbid obesity (981201301) Morbid obesity (E66.01) Active confirmed Problem Arthropathy of lumba r facet joint (118065364) Lumbar facet arthropathy (M47.816) Active confirmed Problem Obese class I (967501682181555) BMI 33.0-33.9,adult (Z68.33) Active confirmed Problem Sciatica (59716820) Lumbago with sciatica, right side (M54.41) Active confirmed Problem Multiple myeloma (093786862) Multiple myeloma not having achieved remission (C90.00) Active confirmed Problem Primary insomnia (2710784) Primary insomnia (F51.01) Active confirmed Problem Chronic pain (03292193) Other chronic pain (G89.29) Active confirmed Problem Spinal cord disorder (45870418) Unspecified cord compression (G95.20) Active confirmed Problem Pain of right knee region (finding) (707993088107615) Pain in right knee (M25.561) Active confirmed Problem Degeneration of lumbar intervertebral disc (89236652) Lumbar degenerative disc disease (M51.36) Active confirmed Problem Chronic pain (34220856) Other chronic pain (G89.29) Active confirmed Problem Chronic obstructive pulmonary disease with acute lower respiratory infection (185939236) COPD (chronic obstructive pulmonary disease) with acute bronchitis (J44.0) Active confirmed Problem Chronic obstructive pulmonary disease (31124309) Asthmatic bronchitis , chronic (J44.9) Active confirmed Problem Uncomplicated moderate persistent asthma (972657137) Moderate persistent asthma without complication (J45.40) Active confirmed Problem Displacement of lumbar intervertebral disc without myelopathy (27142254) Bulging lumbar disc (M51.26) Active confirmed Problem Backache (610857500) Mid back pain (M54.9) Activ e confirmed Problem COPD - Chronic obstructive pulmonary disease (13738847) Chronic obstructive pulmonary disease, unspecified COPD type (J44.9) Active confirmed Problem Mild intermittent asthma (332424879) Mild intermittent asthma without complication (J45.20) Active confirmed Problem Leukocytosis (425508231) Leukocytosis, unspecified type (D72.829) Active confirmed Problem Chronic bronchitis (54043922) Chronic bronchitis, unspecified chronic bronchitis type (J42) Active confirmed Problem Hyperlipidaemia (21572946) Hyperlipidemia, unspecified hyperlipidemia type (E78.5) Active confirmed Problem Chronic gouty arthritis (86844574) Chronic gout without tophus, unspecified cause, unspecified site (M1A.9XX0) Active confirmed Problem Pure hypercholesterolemia (227654381) Pure hypercholesterolemia (E78.00) Active confirmed Problem Benign prostatic hypertrophy without outflow obstruction (533274138) Benign prostatic hyperplasia without lower urinary tract symptoms (N40.0) Active confirmed Problem Elevated PSA (748999740) Elevated PSA (R97.20) Active confirmed Problem Degeneration of thoracic intervertebral disc (01732915) DDD (degenerative disc disease), thoracic (M51.34) Active confirmed Problem Primary hypertension (06922588) Primary hypertension (I10) Active confirmed Problem Pathological fractur e of vertebra (125923810) Nontraumatic compression fracture of T7 vertebra, initial encounter (M48.54XA) Active confirmed Vital Signs Heart Rate 81 /min 06/13/2025 Blood pressure diastolic 74 mm Hg 06/13/2025 Height 69 in 06/13/2025 Blood pressure systolic 152 mm Hg 06/13/2025 Weight 258.6 lbs 06/13/2025 BMI 38.18 kg/m2 06/13/2025 Encounters Encounter Location Date Provider Diagnosis [facility] [address] [place], [place] [id number] 07/19/2024 Funmi Thurman Essential hypertensi on I10 ; Hyperlipidemia, unspecified hyperlipidemia type E78.5 ; COPD (chronic obstructive pulmonary disease) with acute bronchitis J44.0 ; Elevated PSA R97.20 ; Prostate cancer screening Z12.5 ; Mid back pain M54.9 and Nontraumatic compression fracture of T7 vertebra, initial encounter M48.54XA [facility] [address] [place], [place] [id number] 11/03/2024 Funmi Holden Renal insufficiency N28.9 ; Chronic obstructive pulmonary disease, unspecified COPD type J44.9 ; Compression fracture of body of thoracic vertebra S22.000A ; Thoracic spinal stenosis M48.04 ; Pure hypercholesterolemia E78.00 ; Mid back pain M54.9 ; Unspecified cord compression G95.20 and BMI 33.0-33.9,adult Z68.33 [facility] [address] [place], [place] [id number] 12/12/2024 Funmi Holden Low back pain, unspe cified M54.50 ; Leukocytosis, unspecified type D72.829 and Multiple myeloma not having achieved remission C90.00 [facility] [address] [place], [place] [id number] 02/19/2025 Funmi Holden Essential hypertensi on I10 [facility] [address] [place], [place] [id number] 03/14/2025 Funmi Holden Essential hypertensi on I10 [facility] [address] [place], [place] [id number] 06/13/2025 Funmi Holden Essential hypertensi on I10 and Chronic obstructive pulmonary disease, unspecified COPD type J44.9 [facility] [address] [place], [place] [id number] 07/11/2024 Funmi Holden [facility] [address] [place], [place] [id number] 07/20/2024 Funmi Holden [facility] [address] [place], [place] [id number] 09/05/2024 Funmi Holden [facility] [address] [place], [place] [id number] 09/21/2024 Funmi Holden [facility] [address] [place], [place] [id number] 10/26/2024 Funmi Holden [facility] [address] [place], [place] [id number] 11/07/2024 Funmi Holden [facility] [address] [place], [place] [id number] 11/22/2024 Funmi Holden [facility] [address] [place], [place] [id number] 12/08/2024 Funmi Holden [facility] [address] [place], [place] [id number] 12/08/2024 Funmi Holden Pain, cancer G89.3 [facility] [address] [place], [place] [id number] 12/28/2024 Funmi Holden Chronic obstructive pulmonary disease, unspecified COPD type J44.9 Assessments Encounter Date Diagnosis (ICD Code) Assessment Notes Treatment Notes Treatment Clinical Notes Section Notes 07/19/2024 Essential hypertensi on (ICD-10 - I10) 07/19/2024 Hyperlipidemia, unspecified hyperlipidemia type (ICD-10 - E78.5) 11/03/2024 Renal insufficiency (ICD-10 - N28.9) 11/03/2024 Chronic obstructive pulmonary disease, unspecified COPD type (ICD-10 - J44.9) 12/08/2024 Pain, cancer (ICD-10 - G89.3) 12/12/2024 Leukocytosis, unspecified type (ICD-10 - D72.829) Results of recent bone marrow biopsy at and Heme/Onc note obtained and reviewed. Spoke to Dr. Gibbons at [facility] Oncology today. Patient does indeed have [...] unspecified COPD type (ICD-10 - J44.9) 12/12/2024 Multiple myeloma not having achieved remission (ICD-10 - C90.00) 11/03/2024 Compression fracture of body of thoracic vertebra (ICD-10 - S22.000A) 07/19/2024 COPD (chronic obstructive pulmonary disease) with acute bronchitis (ICD-10 - J44.0) 07/19/2024 Elevated PSA (ICD-10 - R97.20) 11/03/2024 Thoracic spinal stenosis (ICD-10 - M48.04) Notes from surgery reviewed in office today 07/19/2024 Prostate cancer screening (ICD-10 - Z12.5) 11/03/2024 Pure hypercholesterolemia (ICD-10 - E78.00) 11/03/2024 Mid back pain (ICD-1 0 - M54.9) 07/19/2024 Mid back pain (ICD-1 0 - M54.9) Spoke to Dr. Katz's office staff and PRODUCTION MACHINE OPERATOR today. They will see patient today to evaluate for kyphoplasty 11/03/2024 Unspecified cord compression (ICD-10 - G95.20) 07/19/2024 Nontraumatic compression fracture of T7 vertebra, initial encounter (ICD-10 - M48.54XA) 11/03/2024 BMI 33.0-33.9,adult (ICD-10 - Z68.33) 11/03/2024 Other Discharge summary with available lab/diagnostic imaging results obtained and reviewed. Discharge medication list reconciled. Appropriate counseling provided. Moderate Complexity 12/12/2024 Other Need requests about ECHO request from Plan Of Treatment Next Appt Details Provider Name:Funmi Jon ry, 10/12/2025 01:30:00 PM, [address], [address], [place], [place], [id number], Insurance Providers Payer Name Payer Address Payer Phone Subscriber Number Group Number Insured Name Patient Relationship to Insured Coverage Start Date Coverage End Date [employer] [address] [place] [address] [id number] Kevin , Bill Self - patient is the insured MEDICARE PART B [address] [address] [place] [address] [id number] Harjit Brown Self - patient is the insured Medical [...]
--- OUTSIDE RECORDS SUMMARY | 2025-07-10 09:59 | XMS_ITS | Encounter Summary ---
Author Organization [facility] ([place], [place], [place], [place]) Address [address] [place] [address] Care Team Providers Care Food And Beverage Checker Name Role Phone Unavailable Primary Care Provider Unavailabl e Encounter Details Date Type Department Care Team (Late st Contact Info) Description 08/31/2018 Transcribed Document [facility] Family Medicine [facility] [place] [address] ProviderTree MD [address] [place] [address] Social History Tobacco Use Types Packs/Day [...] Tree Alonso MD - 08/31/2018 2:47 PM OR MANAGER [address] [place] [address] Patient Copy Patient Information: Name: PETRA VILLALBA Current Date: 08/31/2018 14:47:08 : 1955 Patient Address: [address] [place] [id number] Patient Attending Physician: BEATRIZ RAWLS MD-ORT Primary Care Provider: BILL VENTURA MD-KATHLEEN Primary Care Provider Discharge Diagnosis: Weight on Admission: 224 lb, 0 oz Comment: Follow-up Instructions: With: Address: When: BEATRIZ RAWLS [address], [place] [phone] Business (1) 11:00 AM Discharge Instructions: Diet [...] incision site Medical Equipment for Home Use: [employer]s--[phone] [facility]--[phone] Immunizations Documented During Stay: No Immunizations Found [...] nasal (fluticasone 50 mcg/inh nasal spray) 1 [place](s) Nostrils Both Every Day. fluticasone/umeclidinium/vilanterol (Trelegy Ellipta) [...] 10/23/2013 Document Revised: 07/19/2015 Document Reviewed: 06/13/2016 [employer] Interactive Patient Education ? 2017 [employer]. Wound Infection Introduction A wound infection happens [...] instructions at home: Medicines??? Take or apply ofzr-sdc-haomsjm and prescription medicines only as told by [...] cannot use soap and water, use hand environmental engineering intern. ? Change your bandage as told by [...] these instructions at home: Medicines ??? Take insn-bxn-jgbakbd and prescription medicines only as told by [...] cannot use soap and water, use hand environmental engineering intern. ? Change your bandage as told by [...] 09/19/2012 Document Revised: 03/01/2017 Document Reviewed: 06/03/2016 [employer] Interactive Patient Education ? 2017 [employer]. Medication Leaflets: tamsulosin (durant angeline FEROZ [...] may report side effects to FDA at 2-788-AME-8893. What other drugs will affect tamsulosin? Tell [...] may affect tamsulosin. This includes prescription and pzdb-lyj-ycinxxx medicines, vitamins, and herbal products. Not all [...] to ensure that the information provided by [employer]. ('Multum') is accurate, up-to-date, and complete, but no guarantee is made to that effect. Drug information contained herein may be time sensitive. MedVentive information has been compiled for use by healthcare practitioners and consumers in the [place] and therefore [employer]ent[employer] does not warrant that uses outside of the [place] are appropriate, unless specifically indicated otherwise. [employer]ent[employer]'s drug information does not endorse drugs, diagnose patients or recommend therapy. [employer]ions drug information is an informational resource designed [...] effective or appropriate for any given patient. [facility] does not assume any responsibility for any aspect of healthcare administered with the aid of information [facility] provides. The information contained herein is not intended to cover all possible uses, directions, precautions, warnings, drug interactions, allergic reactions, or adverse effects. If you have questions about the drugs you are taking, check with your doctor, nurse or pharmacist. Copyright 7790-4713 [facility] [employer]JustFamily. Version: 9.01. Revision Date: 06/06/2018. enoxaparin (ee [...] may report side effects to FDA at 2-323-ADW-9562. What other drugs will affect enoxaparin? Tell [...] drugs may affect enoxaparin, including prescription and gilt-zmi-fpnavvq medicines, vitamins, and herbal products. Not all [...] to ensure that the information provided by [employer]. ('[employer]') is accurate, up-to-date, and complete, but no guarantee is made to that effect. Drug information contained herein may be time sensitive. [employer]Ventive information has been compiled for use by healthcare practitioners and consumers in the [place] and therefore [employer]ent[employer] does not warrant that uses outside of the [place] are appropriate, unless specifically indicated otherwise. [employer]'s drug information does not endorse drugs, diagnose patients or recommend therapy. [employer] drug information is an informational resource designed [...] effective or appropriate for any given patient. [employer] does not assume any responsibility for any aspect of healthcare administered with the aid of information [employer] provides. The information contained herein is not intended to cover all possible uses, directions, precautions, warnings, drug interactions, allergic reactions, or adverse effects. If you have questions about the drugs you are taking, check with your doctor, nurse or pharmacist. Copyright 7824-9123 [facility] Endeavors. Version: .. Revision Date: 10/14/2017. acetaminophen and [...] may report side effects to FDA at 1-674-FCM-0781. What other drugs will affect acetaminophen and [...] affect acetaminophen and oxycodone, including prescription and rzvc-rbc-ixogyoy medicines, vitamins, and herbal products. Not all [...] to ensure that the information provided by [employer]. ('Multum') is accurate, up-to-date, and complete, but no guarantee is made to that effect. Drug information contained herein may be time sensitive. [employer]Ventive information has been compiled for use by healthcare practitioners and consumers in the [place] and therefore [employer]entive does not warrant that uses outside of the [place] are appropriate, unless specifically indicated otherwise. [employer] drug information does not endorse drugs, diagnose patients or recommend therapy. [employer] drug information is an informational resource designed [...] effective or appropriate for any given patient. [employer] does not assume any responsibility for any aspect of healthcare administered with the aid of information [employer] provides. The information contained herein is not intended to cover all possible uses, directions, precautions, warnings, drug interactions, allergic reactions, or adverse effects. If you have questions about the drugs you are taking, check with your doctor, nurse or pharmacist. Copyright 3200-5533 [employer]. Version: 18.02. Revision Date: 06/08/2018. CIGARETTE SMOKING: The facts are clear, cigarette smoking will shorten your life. Smoking can cause many illnesses along the way. As a healthcare provider, we recommend that you stop smoking. Assistance with quitting is available by contacting 9-877-ZGIO-NOW. This is a free resource providing counseling, [...] Be sure to sign up for the [employer] patient portal, which gives you 01/02 access to your medical information ??? including these discharge instructions ??? using your computer, smartphone, or tablet. Just go to [employer] to get started. Questions? Call . [facility] would like to thank you for allowing us to assist you with your healthcare needs. DEEJAY Pacheco BILL RAY, (or compliance representative dealer) have received the above patient education materials/instructions and have verbalized understanding: Patient Signature _ Date/Time Patient Card Sorter Signature (if needed) Date/Time Clinician/Hospital Card Sorter Signature (if needed) Date/Time Electronically signed by [facility] Conversion Assistance Specialist Justinner at 10/27/2022 8:07 PM CDT documented in this encounter Plan of Treatment Not on file documented as of this encounter Visit Diagnoses Not on filedocumented in this encounter
--- OUTSIDE RECORDS SUMMARY | 2025-07-10 09:59 | XMS_ITS | Encounter Summary ---
Author Organization [employer] ([place], [place], [place], [place], [place]) Address [address] [place] [address] Care Team Providers Care Butting Saw Operator Name Role Phone Unavailable Primary Care Provider Unavailabl e Encounter Details Date Type Department Care Team (Late st Contact Info) Description 08/31/2018 Transcribed Document [facility] Family Medicine [facility] [place] [address] ProviderTree MD [address] [place], [place] [id number] Social History Tobacco Use Types Packs/Day Years [...] Tree Alonso MD - 08/31/2018 2:47 PM [employer] Patient Education Materials Follows:Disease Wound Infection Introduction [...] instructions at home: Medicines??? Take or apply ykqz-lia-fxwiiuo and prescription medicines only as told by [...] cannot use soap and water, use hand vendor analyst. ? Change your bandage as told by [...] these instructions at home: Medicines ??? Take ukby-dxj-olxxhgo and prescription medicines only as told by [...] cannot use soap and water, use hand vendor analyst. ? Change your bandage as told by [...] 09/19/2012 Document Revised: 03/01/2017 Document Reviewed: 06/03/2016 Socialtext Interactive Patient Education ? 2017 [employer] Inc. Urology Plascencia Catheter Care, Adult A [...] 10/23/2013 Document Revised: 07/19/2015 Document Reviewed: 06/13/2016 ElseSparkWords Interactive Patient Education ? 2017 [employer] Inc. documented in this encounter Plan of Treatment Not on file documented as of this encounter Visit Diagnoses Not on filedocumented in this encounter
--- OUTSIDE RECORDS SUMMARY | 2025-07-10 09:59 | XMS_ITS | Encounter Summary ---
Author Organization [employer] ([place], [place], [place], [place]) Address [address] [place] [address] Care Team Providers Care Sales Trainer Name Role Phone Unavailable Primary Care Provider Unavailabl e Encounter Details Date Type Department Care Team (Late st Contact Info) Description 08/31/2018 Transcribed Document [facility] Family Medicine [facility] [place] [address] ProviderTree MD [facility] [place] [id number] Social History Tobacco Use Types Packs/Day Years [...] - Tree ProviderMD - 08/31/2018 12:39 PM HEAT TREAT PULLER Treatment Intervention, PT Entered On: 08/31/2018 16:05 [...] AM-PAC Basic Mobility Standardized Score : 43.63 AM-[facility] Basic Mobility CMS 0-100% Score : [...] CARLOS CASTILLO, PT - 08/31/2018 15:55 EST [facility] Goals Mobility/Bed Mobility LTG PT Grid Goal [...] Patient was independent with TKR HEP. Joint leadership coach was present for teaching and states [...] CARLOS CASTILLO, PT - 08/31/2018 15:55 EST [place] PT Charges PT Therap. Exercise 15 min : 1 Gait Training Each 15 Min : 2 CARLOS CASTILLO PT - 08/31/2018 15:55 EST documented in this encounter Plan of Treatment Not on file documented as of this encounter Visit Diagnoses Not on filedocumented in this encounter
--- OUTSIDE RECORDS SUMMARY | 2025-07-10 09:59 | XMS_ITS | Encounter Summary ---
Author Organization [employer] ([place], [place], [place], [place], [place]) Address [address] [place] [address] Care Team Providers Care Cross Tie Tram Loader Name Role Phone Unavailable Primary Care Provider Unavailabl e Encounter Details Date Type Department Care Team (Late st Contact Info) Description 08/31/2018 Transcribed Document [facility] [place] [facility] [place] [address] ProviderTree MD [facility] [address] Social History Tobacco Use Types [...] Tree Alonso MD - 08/31/2018 10:44 AM CELL TUBER HAND Discharge Instructions Entered On: 08/31/2018 10:46 EST Performed On: 08/31/2018 10:44 EST by Xochilt Ba RN DC Instructions [facility] Medical Equipment For Home Use : [facility]--[phone] Home Health Services : [facility]--[phone] Christina Meyers RN - 08/31/2018 11:25 EST [...] 08/31/2018 10:44 EST Electronically signed by Amira, [facility] Conversion Pantry Chef Cerner at 10/27/2022 8:16 PM CDT documented in this encounter Plan of Treatment Not on file documented as of this encounter Visit Diagnoses Not on filedocumented in this encounter
--- OUTSIDE RECORDS SUMMARY | 2025-07-10 09:59 | XMS_ITS | Encounter Summary ---
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 Education-Surgery Entered On: 08/31/2018 14:59 EST Performed On: 08/31/2018 14:59 EST by JUAN FRAZIER Rn-Ortho Nurse Navigator Teaching/Learning Assessment Individuals Taught : Patient, Spouse Readiness to Learn : Cooperative Readiness to Learn : Demonstration, Explanation, Video/Educational TV Education Comment : Incentive Spirometry taught at [facility] JUAN FRAZIER Rn-Ortho Nurse Elizaator - 08/31/2018 14:59 EST Education Topics, Periop Preadmission Perioperative Education Grid Incentive Spirometry : Verbalizes understanding JUAN FRAZIER Rn-Ortho Nurse Elziaator - 08/31/2018 14:59 EST Electronically signed by Dev Collier Conversion Entry Level Automotive Technician Cerner at 10/27/2022 7:59 PM CDT documented in this encounter Plan of Treatment Not on file documented as of this encounter Visit Diagnoses Not on filedocumented in this encounter
--- OUTSIDE RECORDS SUMMARY | 2025-07-10 09:59 | XMS_ITS | Encounter Summary ---
Author Organization [facility] Address [address] [place] [address] Care Team Providers Care Batch Plant Operator Name Role Phone Parrish Thurman MD Primary Care Provider [phone] Encounter Details Date Type Department Care Team [...] were you homeless or living in a jail (including now)? 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 file Not on file Not on file documented as of this encounter Functional Status * Communicable Disease Screening Question Answer Date of Assessment Author Have you been in contact with someone who was sick? No / Unsure 05/28/2025 12:47 PM Caroline Burgess Do you have any of the following new or worsening symptoms? None of these 05/28/2025 12:47 PM Madison Burgess ne * Travel Screening Question Answer Date of Assessment Author Have you traveled [place] or domestically in the last month? No 05/28/2025 12:47 PM Caroline Camarena documented as of this encounter Mental Status * Communicable Disease Screening Question Answer Entry Date Author Have you been in contact with someone who was sick? No / Unsure 05/28/2025 12:47 PM Caroline Burgess Do you have any of the following new or worsening symptoms? None of these 05/28/2025 12:47 PM Madison Burgess ne * Travel Screening Question Answer Entry Date Author Have you traveled intern[place] or domestically in the last month? No 05/28/2025 12:47 PM Caroline Camarena documented in this encounter Plan of Treatment Upcoming Encounters Date Type Department Care Team (Late st Contact Info) Description 12/07/2025 1:00 PM EDT Office Visit Medical Office Building [facility] [address], [address] [place] [address] Afshan Bryan MD [address] [place] [address] documented as of this encounter [...] documented as of this encounter Care Teams Batch Plant Operator Relationship Specialty [place] [id number] PCP - General 10/19/24 documented as of this encounter
--- OUTSIDE RECORDS SUMMARY | 2025-07-10 09:59 | XMS_ITS | Clinical Summary ---
Author Organization [employer] ([place], [place], [place], [place], [place]) Address [address] [place] [address] Care Team Providers Care Veneer Splicer Name Role Phone Unavailable Primary Care Provider [...]
--- OUTSIDE RECORDS SUMMARY | 2025-07-10 09:59 | XMS_ITS | Encounter Summary ---
Author Organization [employer] ([place], [place], [place], [place], [place]) Address [address] [place] [address] Care Team Providers Care Child Life Assistant Name Role Phone Unavailable Primary Care Provider Unavailabl e Encounter Details Date Type Department Care Team (Late st Contact Info) Description 09/02/2018 Transcribed [place] [facility] [place] [facility] [place] [address] ProviderTree MD [facility] [place] [id number] Social History Tobacco Use Types Packs/Day Years [...] Tree Alonso MD - 09/02/2018 1:30 PM MATERIALS CLERK Post Visit Phone Call Entered On: 09/02/2018 13:33 EST Performed On: 09/02/2018 13:30 EST by JUAN FRAZIER Rn-Ortho Nurse Navigator Post Visit Phone Call Post Visit Phone Call History : First call Phone Number : [phone] Contact Relationship to Patient : Spouse Emergency [...] Urology appointment made with Dr. Eugene in [place] on 09/05/18 at 2:15. states understanding. JUAN FRAZIER, Boby-Ortho Nurse Navigator - 09/02/2018 13:30 EST Electronically signed by Amira [facility] Conversion [employer] Caretaker Cerner at 10/27/2022 8:06 PM CDT documented in this encounter Plan of Treatment Not on file documented as of this encounter Visit Diagnoses Not on filedocumented in this encounter
--- OUTSIDE RECORDS SUMMARY | 2025-07-10 10:00 | XMS_ITS | Clinical Summary ---
Author Organization [facility] Address [address] [place] [address] Phone [email or web address] Care Team Providers Care Library Page Name Role Phone Handy Pennington Primary Care Provider [phone] Allergies No known active allergies Medications fluticasone [...] Insurance [place]IN [place] 5 Care Teams Library Page Relationship Specialty Start Date End Date Handy Pennington [address] [place] [id number] PCP - General General Surgery 09/11/19
--- OUTSIDE RECORDS SUMMARY | 2025-07-10 10:00 | XMS_ITS | Encounter Summary ---
Author Organization [facility] Address [address] [place] [address] Care Team Providers Care Board Of Education Secretary Name Role Phone Parrish Thurman MD Primary Care Provider [phone] Reason for Visit * Reason Comments Med Refill Encounter Details Date Type Department Care Team ([facility] st Contact Info) Description 01/06/2025 Refill [facility] [address], [address] [place] [address] Hilario Burger MD [address] [place] [address] Vitamin D deficiency Social History [...] drink first t kiet in the morning (EYE-CLINICAL TECH) to steady your nerves or to get [...] Start Date Job End Date 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 file Not on file Not on file documented as of this encounter Plan of Treatment Upcoming Encounters Date Type Department Care Team (Late st Contact Info) Description 12/07/2025 1:00 PM EDT Office Visit Medical Office Building [facility] [address], [address] [place] [address] Afshan Bryan MD [address] [place] [address] documented as of this encounter [...] documented as of this encounter Care Teams Board Of Education Secretary Relationship Specialty [place] [id number] PCP - General 10/19/24 documented as of this encounter
[2025-07-10 10:09] LABS: Hematocrit 34.6 % (42.0-52.0); Hemoglobin 10.8 g/dL (14.1-18.0); Immature Granulocytes % 0.8 %; Mean Corpuscular HGB Conc 31.2 g/dL (31.8-35.4); Mean Corpuscular Hemoglobin 27.8 pg (27.0-31.2); Mean Corpuscular Volume 89.2 fl (80-94); Nucleated Red Blood Cells % 0 %; Platelet Count 183 K/mm3 (142-424); Red Blood Count 3.88 M/mm3 (4.60-6.20); Red Cell Distribution Width-SD 60.8 fL; White Blood Count 6.4 K/mm3 (4.8-10.8)
[2025-07-10 10:19] LABS: Albumin Level 3.5 g/dl (3.5-5.0); Chloride 111 mmol/L (98-107); Potassium 3.9 mmoL/L (3.5-5.1); Sodium 141 mmol/L (136-145)
[2025-07-10 10:22] LABS: Alanine Aminotransferase 24 U/L (12-78); Albumin/Globulin Ratio 1.4 (1.1-1.8); Alkaline Phosphatase 98 U/L (38-126); Anion Gap 10.9 mEq/L (5-15); Aspartate Amino Transferase 27 U/L (17-59); Bilirubin,Total 0.6 mg/dl (0.2-1.3); Blood Urea Nitrogen 20 mg/dl (9-20); Calcium 9.6 mg/dl (8.4-10.2); Carbon Dioxide 23 mmol/L (22.0-30.0); Creatinine,Serum 1.10 mg/dl (0.66-1.25); Estimated Glomerular Filt Rate 67 ml/min (>60); GFR (African American) 81 ML/MIN (>60); Globulin 2.5 g/dL (1.3-3.2); Glucose 132 mg/dl (74-100); Total Protein,Serum 6.0 g/dl (6.3-8.2)
[2025-07-10] MEDS: DEXAMETHASONE 4MG TABLET 40 MG (10:50)
[2025-07-10 11:20] VITALS: BP 122/56; PULSE 65; RESP 19; O2SAT 94
[2025-07-10] MEDS: 0.9 % SODIUM CHLORIDE 500 ML IV (11:20)
[2025-07-10 11:55] VITALS: BP 129/62; PULSE 62; RESP 19; O2SAT 95
[2025-07-10] MEDS: DEXTROSE 5 % IN WATER 100 ML IV (11:55)
[2025-07-10 12:01] VITALS: RESP 19; O2SAT 96
[2025-07-10 12:21] VITALS: BP 137/52; PULSE 63; RESP 19; O2SAT 95
[2025-07-10 13:00] VITALS: BP 130/62; PULSE 63; RESP 19; O2SAT 98
[2025-07-10] MEDS: SODIUM CHLORIDE 0.9% 10ML FLUSH SYRINGE 10 ML IV (13:00)
[2025-07-11 13:39] LABS: Albumin 3.0 g/dL (2.9-4.4); Alpha-1-Globulin 0.3 g/dL (0.0-0.4); Alpha-2-Globulin 0.7 g/dL (0.4-1.0); Gamma Globulin 0.4 g/dL (0.4-1.8)
[2025-07-13 15:53] LABS: Immunoglobulin A, Qn 125 mg/dL (61-437); Immunoglobulin G, Qn 431 mg/dL (603-1613); Immunoglobulin M, Qn 13 mg/dL (20-172)
[2025-07-20 15:08] LABS: PDF SCANNED IMAGE
== END 2025-07-10 23:59 | disposition home or self-care (01) ==
PROVIDERS: PCP Family Medicine; Visit Provider Internal Medicine Medical Oncology
DX: C90.00 Multiple myeloma not having achieved remission (principal); Z51.11 Encounter for antineoplastic chemotherapy
CPT/HCPCS: 80053; 82784; 83521; 84155; 84165; 85025; 86334; 96409; J1642; J7040; J8540; J9047